=== PATIENT | female | born 1970 | race Hispanic/Latino ===

== ENCOUNTER 2017-09-20 02:34 | Emergency (ER) | payer SELFPAY | END 2017-09-20 03:57 | disposition home or self-care (01) | LOC: ERS 02:34 | DX: S06.0X0A Concussion without loss of consciousness, initial encounter (principal); I10 Essential (primary) hypertension; I25.10 Atherosclerotic heart disease of native coronary artery without angina pectoris; E11.9 Type 2 diabetes mellitus without complications; E78.5 Hyperlipidemia, unspecified; G43.909 Migraine, unspecified, not intractable, without status migrainosus; F32.9 Major depressive disorder, single episode, unspecified; Z79.4 Long term (current) use of insulin; Z79.899 Other long term (current) drug therapy; W22.8XXA Striking against or struck by other objects, initial encounter | CPT/HCPCS: 99284 ==

== ENCOUNTER 2018-05-05 04:13 | Inpatient (IN) | payer SELFPAY ==
[2018-05-05 05:02] LABS: Hemoglobin 12.7 g/dL (12.0-16.0); Mean Corpuscular HGB CONC 33.5 g/dL (32.0-36.0); Mean Corpuscular Hemoglobin 24.5 pg (27.0-31.0); Mean Corpuscular Volume 73.2 fL (78.0-98.0); Mean Platelet Volume 8.7 fL (7.4-10.4); Platelet Count 285 thou/uL (130-400); RBC Distribution Width 13.5 % (11.5-14.5); Red Blood Cell (RBC) Count 5.16 mill/uL (4.20-5.40); White Blood Cell (WBC) Count 9.7 thou/uL (4.8-10.8)
[2018-05-05 05:03] LABS: ALT (SGPT) 19 U/L (8-55); AST (SGOT) 23 U/L (5-34); Albumin 3.1 g/dL (3.5-5.0); Alkaline Phosphatase 117 U/L (40-150); Anion Gap 12 mmol/L (10-20); BUN (Urea Nitrogen) 11 mg/dL (7.0-18.7); Bilirubin, Total 0.2 mg/dL (0.2-1.2); CK (CPK) 171 U/L (29-168); Calc. Creatinine Clearance 0 mL/min (70-130); Calcium 9.5 mg/dL (7.8-10.44); Carbon Dioxide 24 mmol/L (22-29); Chloride 101 mmol/L (98-107); Estimated GFR-MDRD 74; Globulin 3.7 g/dL (2.4-3.5); Glucose 411 mg/dL (70-105); Potassium 3.9 mmol/L (3.5-5.1); Protein, Total 6.8 g/dL (6.0-8.3); Sodium 133 mmol/L (136-145)
[2018-05-05 05:11] LABS: CKMB 8.1 ng/mL (0-6.6); Troponin I 2.368 ng/mL (< 0.028)
[2018-05-05] MEDS ORDERED: Morphine 4 MG/ML VIAL ONE ×3 (05:22→09:03)
[2018-05-05] MEDS ORDERED: Ondansetron PF 4 MG/2 ML Vial ONE (05:23)
[2018-05-05] MEDS ORDERED: Nitroglycerin 0.4 MG TAB (25 Tab Bottle) ONE (05:23)
[2018-05-05] MEDS ORDERED: Nitroglycerin 2% Ointment 1 INCH/1 GM Packet ONE ×2 (05:30→07:42)
[2018-05-05 05:50] LABS: #Eosinphils 0.3 thou/uL (0.0-0.7); #Lymphocytes 2.8 thou/uL (1.20-3.40); #Monocytes 0.4 thou/uL (0.11-0.59); #Neutrophils 6.1 thou/uL (1.40-6.50); %Basophils 0.5 % (0.0-1.0); %Eosinophils 3.2 % (0.0-10.0); %Lymphocytes 29.3 % (21.0-51.0); %Monocytes 4.3 % (0.0-10.0); %Neutrophils 62.7 % (42.0-75.0); MDiff Complete? YES; Microcytosis SLIGHT = 6-15 cells (100X) (0-5/hpf); PLT Morphology Comment Appears Adequate
[2018-05-05] MEDS ORDERED: Enoxaparin Sodium 30 MG/0.3 ML SYRINGE ONE (06:33)
[2018-05-05] MEDS ORDERED: Morphine 2 MG/ML SYRINGE ONE (06:33)
[2018-05-05] MEDS ORDERED: Enoxaparin Sodium 100 MG/ML SYRINGE ONE (06:33)
[2018-05-05] MEDS ORDERED: Nitroglycerin 50 MG/250 ML BOT 250 ML ONE ×2 (06:45→11:47)
[2018-05-05] MEDS ORDERED: Labetalol HCl 100 MG/20 ML VIAL ONE (07:42)
[2018-05-05] MEDS ORDERED: Communication Order-Pharmacy FS SCH (08:30)
[2018-05-05 08:31] VITALS: BMI 40.5
[2018-05-05 08:40] LABS: Troponin I 5.666 ng/mL (< 0.028)
--- NOTE | 2018-05-05 08:50 | ULT ---
VENOUS DOPPLER ULTRASOUND OF THE RIGHT LOWER EXTREMITY: INDICATIONS: Right lower extremity edema. TECHNIQUE: Golden-scale, color Doppler, and vascular duplex with spectral analysis was performed of the deep venou s structures of both lower extremities. The common femoral vein, superficial femoral vein, popliteal vein, posterior tibial vein, proximal greater saphenous, and proximal profunda veins were assessed bi laterally. FINDINGS: There is normal compression, flow, and augmentation seen within the deep venous structures of the rig ht lower extremity. IMPRESSION: No evidence of deep venous thrombosis within the right lower extremity. POS: [facility]
[2018-05-05] MEDS: Metoprolol Tartrate 25 MG TAB PO SCH ×2 (09:07→19:18)
[2018-05-05] MEDS: Sodium Chloride 0.9% 1,000 ML IV SCH ×2 (09:10→18:21)
[2018-05-05 09:13] LABS: Cardiac Risk 6.4 (Less than 4.5)
--- NOTE | 2018-05-05 09:30 | RAD ---
CHEST ONE VIEW: INDICATIONS: History of chest pain. COMPARISON: 01/01/2018 FINDINGS/IMPRESSION: There is no evidence of pneumonia, pleural effusion, or pneumothorax. Heart size and pulmonary vascu lature are normal. No acute osseous abnormality is noted. Mild thoracic scoliosis is stable. POS: [facility]
[2018-05-05] MEDS ORDERED: Morphine 4 MG/ML VIAL IV PRN (10:03)
--- NOTE | 2018-05-05 10:09 | CT ---
PRELIMINARY REPORT/[facility]/EMERGENTY AFTER-HOURS PROCEDURE CT Angiography Chest With Intravenous Contrast EXAM DATE/TIME: 05/05/2018 5:31 AM CLINICAL HISTORY: 47 years old, female; Pain; Chest pain; Patient HX: PT reports chest pain that radiates to back start ed at midnight. Reports nausea. TECHNIQUE: Axial computed tomographic angiography images of the chest with intravenous contrast using CT angiogr aphy protocol. Coronal reformatted images were created and reviewed. MIP reconstructed images were created and reviewed. COMPARISON: No relevant prior studies available. FINDINGS: Pulmonary arteries: No definite filling defect to suggest the diagnosis of acute pulmonary embolus. Aorta: No evidence of thoracic aortic dissection or focal aneurysm. Lungs: No significant parenchymal lung opacity or mass. Pleural space: No pleural fluid. Heart: Mild to moderate cardiomegaly. Some coronary artery calcifications, mainly in the LAD. Mediastinum: No evidence for pneumomediastinum or pneumothorax. Upper abdomen: Images that include the upper abdomen appear essentially unremarkable. Lymph nodes: No significant hilar or mediastinal lymphadenopathy. Bones/joints: No significant acute finding. Soft tissues: No significant acute finding. IMPRESSION: 1. No evidence of acute pulmonary embolus. 2. No evidence of thoracic aortic dissection or focal aneurysm. 3. Essentially clear lungs, no pleural fluid. 4. Mild to moderate cardiomegaly. 5. Coronary artery calcifications. 6. Other findings discussed above. Thank you for allowing us to participate in the care of your patient. Dictated and Authenticated by: Gabriel Jim MD 05/05/2018 6:59 AM Central Time ([place] & [place]) FINAL REPORT: I agree with the preliminary report provided. No acute pulmonary embolus is grossly evident. POS: [facility]
[2018-05-05] MEDS ORDERED: Prevnar 13-Val Conj/PF 0.5 ML SYRINGE IM ONE ×2 (10:30→15:00)
[2018-05-05] MEDS ORDERED: Dextrose 50% Abboject 50 ML SYRINGE IVP PRN (10:31)
[2018-05-05] MEDS ORDERED: Dextrose 5% in Water 1,000 ML IV PRN (10:31)
[2018-05-05] MEDS ORDERED: PRE FILLED SC SCH (11:00)
[2018-05-05] MEDS ORDERED: INSULIN GLARGINE SC SCH (11:00)
[2018-05-05] MEDS: Insulin Regular 300 UNITS/3 ML VIAL SC PRN ×3 (11:22→22:31)
[2018-05-05] MEDS: Nitroglycerin 50 MG/250 ML BOT 250 ML IVPB SCH ×3 (11:47→20:24)
[2018-05-05] MEDS ORDERED: Amlodipine 5 MG TAB PO SCH (13:00)
[2018-05-05] MEDS ORDERED: Lisinopril 20 MG TAB PO SCH (13:00)
[2018-05-05] MEDS: Ondansetron PF 4 MG/2 ML Vial IVP PRN (16:12)
[2018-05-05] MEDS ORDERED: Iopamidol 370 76% 100 ML VIAL ONE (16:36)
[2018-05-05] MEDS ORDERED: Enoxaparin Sodium 120 MG/0.8 ML SYRINGE SC SCH (18:45)
[2018-05-05] MEDS ORDERED: Enoxaparin Sodium 40 MG/0.4 ML SYRINGE SC SCH (18:45)
[2018-05-05] MEDS: Morphine 4 MG/ML VIAL IV PRN (20:00)
[2018-05-05] MEDS ORDERED: Atorvastatin Calcium 20 MG TAB PO SCH (21:00)
[2018-05-06] MEDS: Acetaminophen 325 MG TAB PO PRN (00:55)
[2018-05-06] MEDS: Sodium Chloride 0.9% 1,000 ML IV SCH ×2 (04:40→12:48)
[2018-05-06] MEDS: Nitroglycerin 50 MG/250 ML BOT 250 ML IVPB SCH (04:41)
[2018-05-06] MEDS: Morphine 4 MG/ML VIAL IV PRN ×3 (07:30→18:00)
[2018-05-06] MEDS: Lisinopril 20 MG TAB PO SCH (07:31)
[2018-05-06] MEDS: Amlodipine 5 MG TAB PO SCH (07:31)
[2018-05-06] MEDS: Metoprolol Tartrate 25 MG TAB PO SCH (07:32)
[2018-05-06] MEDS: Ondansetron PF 4 MG/2 ML Vial IVP PRN ×2 (07:32→12:48)
--- NOTE | 2018-05-06 07:49 | CON ---
DATE OF CONSULTATION: HISTORY: Yuli Hayes is a 47-year-old female, who had a stent placed in her coronary artery in 2014 in [place], [place]. Apparently, she took Plavix only for 1 month and so I assumed that she had a bare-metal stent placed. She has no further information regarding that stent. She was admitted here in January 2018 with chest discomfort, underwent Cardiolite scan, which was normal. She has been very noncompliant with her medications. She does not even take any aspirin. Last night, approximately midnight, she started having some chest pressure associated with nausea. This continued and she came to the emergency room. In the emergency room, she was given Zofran, nitroglycerin sublingually, morphine 4 mg, aspirin 324 mg, nitropaste, another 2 mg of morphine, Lovenox 1 mg/kg. She was started on nitroglycerin drip as well as given another 4 mg of morphine. She states that her pain is almost gone. Her EKG has been normal and she does have abnormal cardiac enzymes. She has undergone CTA of the chest and has already received 1 dye load. The results of that as well as a vascular ultrasound are pending with nothing on the dictation system. PAST MEDICAL HISTORY: Hypertension, diabetes, hypercholesterolemia, migraine headaches, anxiety, and depression. MEDICATIONS: 1. Lisinopril. 2. Atorvastatin. 3. Levemir, no dosage. 4. She also states that medications included amlodipine, which she has not been able to fill. Exact list of her medications is unknown. ALLERGIES: NONE. PAST SURGICAL HISTORY: Removal of some type of tumor from the right side of her neck. SOCIAL HISTORY: She does not smoke or drink. FAMILY HISTORY: Both mother and father have myocardial infarction. REVIEW OF SYSTEMS: Twelve-point review of systems is otherwise unremarkable. PHYSICAL EXAMINATION: VITAL SIGNS: Blood pressure 120/80, pulse of 80. HEENT: PERRL. NECK: Supple. CHEST: Clear. CARDIAC: S1 and S2 are normal without any S3, S4, or murmurs. Carotid upstrokes normal without bruits. ABDOMEN: Normal bowel sounds without tenderness. The abdomen is obese. EXTREMITIES: Revealed no clubbing, cyanosis, or edema. NEUROLOGICAL: Grossly intact. SKIN: Warm and dry. LABORATORY DATA: EKG reveals normal sinus rhythm and is normal with no acute changes. Hemoglobin 12.7, hematocrit 37.8, white count 9700, and platelets 285, 000. D-dimer is 0.70. Sodium 133, potassium 3.9, chloride 101, carbon dioxide 24, BUN 11, creatinine 0.82, and glucose 411. CK 171, CK-MB 8.1. Troponin I 2.368. IMPRESSION: 1. Non-ST elevation myocardial infarction. Her pain has dramatically improved with intravenous nitroglycerin. She has received Lovenox and also has received 1 dye load today with CTA of the chest. 2. Noncompliance with medications, even not taking an aspirin a day. 3. Hypertension. 4. Hypercholesterolemia. 5. Diabetes. 6. Obesity. 7. History of migraines. 8. Anxiety and depression. PLAN: Situation was discussed with the patient. She has already received 1 dye load today and also has received Lovenox. Her pain is essentially resolved and EKG is normal. It is recommended that tomorrow she undergo cardiac catheterization. Risks of this were discussed including , myocardial infarction, dye reaction, vascular injury, CVA, transfusion, limb loss, renal loss, etc,. Also risks of intervention with stent placement were discussed including , myocardial infarction, emergent CABG, restenosis, stent thrombosis, vessel perforation, etc ,. With her history of extreme noncompliance with medications, only a bare-metal stent would be placed. Job ID: [id number] [facility]ITALKristin
--- NOTE | 2018-05-06 07:50 | HP ---
CHIEF COMPLAINT: Chest pain. HISTORY OF PRESENT ILLNESS: The patient is a 47-year-old female, who came home from work last night and started having some chest discomfort, which was radiating to her back. She had some nausea. She did not vomit. She was not clammy, but she felt short of breath. She took some Tylenol No.3, but this did not really help her. She laid down and started having more chest pain and more shortness of breath. She called her sister, who advised her to take some Gas-X, which she took and did not really help much, so her sister drove her to the emergency room at 3:30 this morning. She was still complaining about the chest pain and shortness of breath and she has a history of some chest pains before. In 2016, she had 2 stents placed in her coronary arteries. PAST MEDICAL HISTORY: Her past medical history is positive for, 1. Coronary artery disease; status post placement of 2 stents in 2016. 2. Diabetes mellitus type 2, on insulin. 3. Hyperlipidemia. 4. Hypertension. 5. Migraine headaches. MEDICATIONS: None. ALLERGIES: NONE. SOCIAL HISTORY: She denies any alcohol use, illicit drug use, or smoking. FAMILY HISTORY: Her mother is still alive. She has diabetes, pacemaker, history of TIAs, MIs, hyperlipidemia. Father at the age of 47. He had diabetes mellitus and gangrene of his leg. REVIEW OF SYSTEMS: CONSTITUTIONAL: Negative for fever and chills. EYES: Negative for eye pain and discharge. ENT: Negative for epistaxis and nasal congestion. CARDIOVASCULAR: Positive for chest pain. Negative for palpitation. RESPIRATORY: Positive for shortness of breath. Negative for cough. GI: Negative for vomiting. Positive for nausea. GENITOURINARY: Negative for hematuria and dysuria. SKIN: Negative for rash or erythema. NEUROLOGIC: Negative for any focal deficits. Positive for migraine headaches. HEMOLYMPHATIC: Negative for clotting abnormalities. PSYCHIATRIC: Negative for depression and anxiety. PHYSICAL EXAMINATION: VITAL SIGNS: Blood pressure is 200/96, temperature is 98.0, pulse is 84, respiratory rate is 17, O2 saturation is 98% on room air. HEENT: Head is atraumatic, normocephalic. Eyes, PERRLA. Sclerae nonicteric. Oral mucosa is moist. NECK: Supple. No lymphadenopathy. Thyroid is not palpable. LUNGS: Clear. HEART: S1 and S2 somewhat distant. No S3. No S4. ABDOMEN: Soft, obese, nontender. Bowel sounds are present. No organomegaly. EXTREMITIES: No clubbing or cyanosis. There is 1 to 2+ peripheral edema similar bilaterally. Pulse is palpable on both tibialis posterior and dorsalis pedis arteries similar bilaterally. They are slightly diminished on both sides similar. NEUROLOGIC: She is alert and oriented x4. There are no any sensory or motor deficits present. Cranial nerves are intact. LABORATORY DATA: Labs showed normal CBC. D-dimer is 0.7. Sodium of 133, glucose 411, . CK-MB 8.1. Troponin the first one was 2.3 and the second one is 5.6. BNP 28.8, globulin 3.7. EKG showed normal sinus rhythm without any ST-segment elevation. No any other abnormalities. EKG is within normal limits. Chest x-ray was done and this was personally reviewed by me and it showed not any acute event in the chest according to the chest x-ray. CT angiogram was done too and this was reviewed personally. We are awaiting for the final report from Radiology. I could not access this image in full extent. Also ultrasound vascular is done, but results are pending. IMPRESSION: 1. Acute coronary syndrome, non-ST segment elevation myocardial infarction. 2. Diabetes mellitus type 2. 3. Hyperlipidemia. 4. Hypertension. 5. Migraine headaches. PLAN: Admission to the Intensive Care Unit. CONDITION: Guarded. ACTIVITY: Bedrest. Normal saline IV at 100 mL per hour and nitroglycerin drip to be titrated, sublingual nitro p.r.n. as needed. Continue with serial CK-MB and troponin levels, and Cardiology consultation. The patient was already seen by Dr. Matute who is typewriters functional tester today. He wants to do cardiac catheterization on her either today or tomorrow. We will have Accu-Cheks every 6 hours. She will be n.p.o. We will cover her with sliding scale. She will continue on 1 mg/kg of Lovenox, which was started in the emergency room subcutaneously every 12 hours for anticoagulation. She was given beta-ruth, which is metoprolol 25 mg. She will have 2 doses every day and lipid profile will be obtained. She will stay n.p.o. for possible procedure today. Job ID: [id number]
[2018-05-06] MEDS ORDERED: Heparin 10,000 UNITS/1 ML VIAL ONE (08:45)
[2018-05-06] MEDS ORDERED: Lidocaine 1% (PF) 30 ML VIAL ONE (08:45)
[2018-05-06] MEDS ORDERED: Iopamidol 370 76% 100 ML VIAL ONE (11:06)
[2018-05-06] MEDS ORDERED: Iopamidol 370 76% 50 ML VIAL FS ONE (11:06)
[2018-05-06] MEDS ORDERED: Midazolam HCl 2 mg/2 ml Vial ONE (11:16)
[2018-05-06] MEDS ORDERED: Fentanyl 100 MCG/2 ML VIAL ONE (11:16)
[2018-05-06] MEDS ORDERED: Bivalirudin 250 MG VIAL ONE ×2 (11:38→11:40)
[2018-05-06] MEDS ORDERED: Nitroglycerin 100MG/250ML BOT 250 ML ONE (11:40)
[2018-05-06] MEDS ORDERED: Clopidogrel Bisulfate 300 MG TAB ONE (11:44)
[2018-05-06] MEDS ORDERED: Nitroglycerin 50 MG/250 ML BOT 250 ML IVPB SCH (12:25)
[2018-05-06] MEDS ORDERED: Metoprolol Tartrate 25 MG TAB PO SCH (12:30)
--- NOTE | 2018-05-06 13:40 | PDOC.PN ---
- Subjective Encounter Start Date: 05/06/18 Encounter Start Time: 13:38 Subjective: post PCI, no pain or sob - Objective MAR Reviewed: Yes Vital Signs & Weight: Vital Signs (12 hours) Temp Pulse BP Pulse Ox 05/06/18 08:00 100 05/06/18 07:31 90 137/60 05/06/18 07:00 99.6 F 05/06/18 05:23 98 05/06/18 04:00 99.1 F 05/06/18 02:00 100.5 F H Weight Admit Weight 243 lb 9.773 oz Weight 244 lb 14.937 oz Most Recent Monitor Data Heart Rate from ECG 82 NIBP 151/73 NIBP BP-Mean 99 Respiration from ECG 22 SpO2 99 I&O: 05/05/18 05/06/18 05/07/18 06:59 06:59 06:59 Intake Total 2834 Output Total 1050 300 Balance 1784 -300 Result Diagrams: 05/05/18 04:36 05/05/18 04:36 Additional Labs: Accuchecks 05/06/18 05/05/18 05/05/18 04:45 22:30 16:17 POC Glucose 167 H 239 H 152 H Phys Exam - Physical Examination Neck: no JVD Respiratory: clear to auscultation bilateral Cardiovascular: RRR, no significant murmur Gastrointestinal: soft, positive bowel sounds Musculoskeletal: no edema Dx/Plan (1) NSTEMI (non-ST elevated myocardial infarction) Code(s): I21.4 - NON-ST ELEVATION (NSTEMI) MYOCARDIAL INFARCTION Status: Acute (2) CAD (coronary artery disease) Code(s): I25.10 - ATHSCL HEART DISEASE OF [place] CORONARY ARTERY W/O ANG PCTRS Status: Acute Qualifiers: Coronary Disease-Associated Artery/Lesion type: [place] artery [place] vs. 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
[2018-05-06] MEDS ORDERED: Sodium Chloride 0.9% 1,000 ML IV SCH (14:41)
[2018-05-06 15:28] LABS: Bilirubin Negative (Negative); Blood, Urine Trace (Negative); Clarity CLEAR (Clear); Glucose, Urine (Dipstick) 100 mg/dL (Negative); Leukocyte Negative (Negative); Nitrite Negative (Negative); Protein, Urine (Dipstick) 300 mg/dL (Neg-Trace); Urobilinogen 0.2 mg/dL (0.2-1.0); pH, Urine 5.5 (5.0-9.0)
[2018-05-06 15:31] LABS: Bacteria/HPF None Seen HPF (None Seen); Hyaline Casts/LPF 4-6 HYALINE CAST LPF (0-3 Hyaline); Pathc Cast-AUWi Flag 1.45 (0-2.49); Squamous Epithelial 0-3 HPF (0-3); WBC/HPF 0-3 HPF (0-3)
[2018-05-06 15:33] LABS: Specific Gravity, Urine Greater than 1.060 (1.002-1.036)
[2018-05-06 15:49] LABS: Crystals/HPF 1+ AMORPH URATES HPF (Negative)
[2018-05-06] MEDS: Insulin Regular 300 UNITS/3 ML VIAL SC PRN (16:47)
--- NOTE | 2018-05-06 18:36 | CON ---
DATE OF CONSULTATION: 05/06/2018 SERVICE: Pulmonary Medicine REASON FOR CONSULT: ICU patient. HISTORY OF PRESENT ILLNESS: The patient is a 47-year-old white female with past medical history significant for coronary artery disease and diabetes. She was in her usual state of health when she started having onset of chest discomfort going into her back with some nausea. Otherwise, she was in her usual state of health. This came on abruptly. She has had similar events like this previously and was associated with coronary artery disease. That discomfort resolved after stents were placed. Overnight, she did fairly well. Discomfort resolved. 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 She currently denies any nausea, vomiting, diarrhea, chest pain, shortness of breath, cough, or sputum production. She has not had any infectious prodromes. PAST MEDICAL HISTORY: 1. Coronary artery disease. 2. Type 2 diabetes mellitus. 3. Hypertension. 4. Dyslipidemia. 5. Migraine. PAST SURGICAL HISTORY: Percutaneous coronary intervention. SOCIAL HISTORY: Negative for alcohol, tobacco, or illicit drug use. She has no exposure to chemicals, dust, asbestos, or tuberculosis. FAMILY HISTORY: Noncontributory. ALLERGIES: NO KNOWN DRUG ALLERGIES. MEDICATIONS: List of her inpatient medications was reviewed. No specific updates were made at this time. REVIEW OF SYSTEMS: General, head, ears, eyes, nose, throat, cardiovascular, respiratory, genitourinary, musculoskeletal, neurologic, and skin are negative except as mentioned in the HPI. PHYSICAL EXAMINATION: VITAL SIGNS: T-max 101.1, pulse 82, blood pressure 151/73, respirations 22, and saturation 99% on room air. GENERAL: The patient is awake and alert. No apparent distress. LUNGS: Decent air entry. Dependent crackles are noted. There is no prolonged expiratory phase or wheezing appreciated. HEART: Normal rate and regular. ABDOMEN: Soft, nontender, and nondistended. Bowel sounds are positive. MUSCULOSKELETAL: No cyanosis or clubbing. There is no pitting in the bilateral lower extremities. NEUROLOGIC: Grossly nonfocal. LABORATORY DATA: WBC 9.7, hemoglobin 12.7, platelets 285,000. D-dimer 0.7. Glucose ranges from 167 to 308. Troponin 10.5 and uptrending. Triglycerides 370. Liver function studies, CBC, and basic metabolic profile are otherwise unremarkable. BNP is noted to be low at 28. IMAGING DATA: 1. CTA of the chest demonstrates no acute cardiopulmonary abnormality. 2. Ultrasound of the bilateral lower extremities demonstrates no evidence of DVT. ASSESSMENT: 1. Non ST-elevation myocardial infarction. 2. Type 2 diabetes mellitus. 3. History of medical noncompliance. DISCUSSION AND PLAN: The patient has already gone for cardiac catheterization. I am waiting to see the results of that study. Pulmonary Critical Care will continue to follow along while the patient remains in this location. She did have a fever last night. We will look for additional signs of sepsis and if present, panculture and empiric antibiotics will be considered. I will get a simple urinalysis at this time. If she has another fever, blood cultures will be performed. 70 minutes have been devoted to this patient in various activities. I personally reviewed all imaging studies and laboratory data noted within this document. For fifty percent of this time, I was interacting with the patient at the bedside or coordinating care with the care team. For the remainder of the time I was immediately available to the patient in the hospital unit. Job ID: [id number] MTDD
[2018-05-06] MEDS: Atorvastatin Calcium 40 MG TAB PO SCH (22:07)
[2018-05-06] MEDS: Metoprolol Tartrate 50 MG TAB PO SCH (22:08)
[2018-05-06] MEDS: Benzonatate 100 MG CAP PO PRN (23:50)
[2018-05-07] MEDS: Acetaminophen 325 MG TAB PO PRN ×3 (04:38→21:40)
[2018-05-07] MEDS: Insulin Regular 300 UNITS/3 ML VIAL SC PRN ×4 (04:49→21:40)
[2018-05-07] MEDS: Morphine 2 MG/ML SYRINGE SLOW IVP PRN (05:34)
[2018-05-07 05:40] LABS: #Eosinphils 0.1 thou/uL (0.0-0.7); #Lymphocytes 1.6 thou/uL (1.20-3.40); #Monocytes 0.5 thou/uL (0.11-0.59); #Neutrophils 7.5 thou/uL (1.40-6.50); %Basophils 0.2 % (0.0-1.0); %Eosinophils 0.7 % (0.0-10.0); %Lymphocytes 16.4 % (21.0-51.0); %Monocytes 5.4 % (0.0-10.0); %Neutrophils 77.2 % (42.0-75.0); Hemoglobin 10.4 g/dL (12.0-16.0); Mean Corpuscular HGB CONC 31.2 g/dL (32.0-36.0); Mean Corpuscular Hemoglobin 23.6 pg (27.0-31.0); Mean Corpuscular Volume 75.6 fL (78.0-98.0); Mean Platelet Volume 8.7 fL (7.4-10.4); Platelet Count 249 thou/uL (130-400); RBC Distribution Width 13.4 % (11.5-14.5); Red Blood Cell (RBC) Count 4.43 mill/uL (4.20-5.40); White Blood Cell (WBC) Count 9.7 thou/uL (4.8-10.8)
[2018-05-07 05:51] LABS: ALT (SGPT) 17 U/L (8-55); AST (SGOT) 27 U/L (5-34); Albumin 2.5 g/dL (3.5-5.0); Alkaline Phosphatase 117 U/L (40-150); Anion Gap 9 mmol/L (10-20); BUN (Urea Nitrogen) 11 mg/dL (7.0-18.7); Bilirubin, Total 0.3 mg/dL (0.2-1.2); Calc. Creatinine Clearance 0 mL/min (70-130); Calcium 8.2 mg/dL (7.8-10.44); Carbon Dioxide 21 mmol/L (22-29); Chloride 103 mmol/L (98-107); Estimated GFR-MDRD 72; Globulin 3.4 g/dL (2.4-3.5); Glucose 300 mg/dL (70-105); Protein, Total 5.9 g/dL (6.0-8.3); Sodium 129 mmol/L (136-145)
[2018-05-07] MEDS ORDERED: Piperacillin/Tazobactam 3.375 GM in Sodium Chloride 0.9% 100 ML IVPB SCH (06:00)
[2018-05-07] MEDS: Vancomycin HCl 1.75 GM in Sodium Chloride 0.9% 500 ML IVPB SCH ×2 (06:11→17:14)
[2018-05-07] MEDS: Metoprolol Tartrate 50 MG TAB PO SCH (09:28)
[2018-05-07] MEDS: Lisinopril 20 MG TAB PO SCH (09:28)
[2018-05-07] MEDS: Amlodipine 5 MG TAB PO SCH (09:28)
--- NOTE | 2018-05-07 09:28 | PDOC.PN ---
- Subjective Encounter Start Date: 05/07/18 Encounter Start Time: 09:27 Subjective: vague L post chest discomfort - Objective MAR Reviewed: Yes Vital Signs & Weight: Vital Signs (12 hours) Temp 05/07/18 04:00 102.2 F H 05/07/18 00:00 99.2 F Weight Admit Weight 243 lb 9.773 oz Weight 3.997 oz Most Recent Monitor Data Heart Rate from ECG 91 NIBP 162/78 NIBP BP-Mean 106 Respiration from ECG 20 SpO2 99 I&O: 05/06/18 05/07/18 05/08/18 06:59 06:59 06:59 Intake Total 2834 2161 Output Total 1050 1535 Balance 1784 626 Result Diagrams: 05/07/18 05:26 05/07/18 05:26 Additional Labs: Accuchecks 05/07/18 05/06/18 05/06/18 04:48 22:11 16:24 POC Glucose 302 H 148 H 207 H Phys Exam - Physical Examination Neck: no JVD Respiratory: clear to auscultation bilateral Cardiovascular: RRR, no significant murmur Gastrointestinal: soft, positive bowel sounds Musculoskeletal: no edema Dx/Plan (1) NSTEMI (non-ST elevated myocardial infarction) Code(s): I21.4 - NON-ST ELEVATION (NSTEMI) MYOCARDIAL INFARCTION Status: Acute (2) CAD (coronary artery disease) Code(s): I25.10 - ATHSCL HEART DISEASE OF [place] CORONARY ARTERY W/O ANG PCTRS Status: Acute Qualifiers: Coronary Disease-Associated Artery/Lesion type: [place] artery [place] vs. 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
[2018-05-07] MEDS: Clopidogrel Bisulfate 75 MG TAB PO SCH (09:29)
[2018-05-07] MEDS: Piperacillin/Tazobactam 3.375 GM in Sodium Chloride 0.9% 100 ML IVPB SCH ×3 (09:37→21:41)
--- NOTE | 2018-05-07 10:29 | PRG ---
DATE OF SERVICE: 05/07/2018 SERVICE: Pulmonary Medicine. INTERVAL HISTORY: Once again, the patient had a fairly significant fever overnight. As such, blood cultures were obtained and she was initiated on IV antibiotics. She denies any current fevers, chills, nausea, or vomiting. She is not having any vaginal discharge, dysuria, frequency, or abdominal discomfort. She has no rashes anywhere or hot red swollen joints. Ultimately, it is not clear where her fever profile is coming from. She is having a little bit of a cough. She tells me that the cough predated her chest discomfort by about 24 hours. OBJECTIVE: VITAL SIGNS: Previously afebrile, but at 4 o'clock in the morning, she had a fever of 102.2. Pulse 90, blood pressure 162/78, respirations 20, saturations 99% on 2 L nasal cannula. GENERAL: The patient is awake and alert, in no apparent distress. LUNGS: Really decent air entry. Some scattered rhonchi are present, but clear with cough. No prolonged expiratory phase or wheezing is appreciated. HEART: Normal rate, regular. ABDOMEN: Soft, nontender, and nondistended. Bowel sounds are positive. MUSCULOSKELETAL: No cyanosis or clubbing. There is trace pitting in the bilateral lower extremities. I do not see significant asymmetry between the right and left. : Smith catheter in place. NEUROLOGIC: Grossly nonfocal. LABORATORY DATA: WBC 9.7, hemoglobin 10.4, platelets 249,000. Creatinine 0.84, bicarbonate 21, and downtrending gently, anion gap is normal. Sodium is downtrending to 129. Respiratory virus panel is negative. ASSESSMENT: 1. Acute hypoxic respiratory failure, improving. 2. Bef-DA-jtuwlieor myocardial infarction. 3. Type 2 diabetes mellitus. 4. Severe sepsis. 5. History of medical noncompliance. DISCUSSION AND PLAN: I will continue the empiric antibiotics while we await some culture results. Pulmonary Critical Care will continue to follow along for the time being. I will have pharmacy dose, both the vancomycin, and Zosyn. From my perspective, she remains stable for transition to the medical unit. Job ID: [id number] [facility]TDD
[2018-05-07] MEDS: Benzonatate 100 MG CAP PO PRN (21:40)
[2018-05-07] MEDS: Colchicine 0.6 MG TAB PO SCH (21:40)
[2018-05-07] MEDS: Metoprolol Tartrate 100 MG TAB PO SCH (21:40)
[2018-05-07] MEDS: Atorvastatin Calcium 40 MG TAB PO SCH (21:40)
[2018-05-08] MEDS: Piperacillin/Tazobactam 3.375 GM in Sodium Chloride 0.9% 100 ML IVPB SCH ×4 (02:32→20:07)
[2018-05-08] MEDS: Vancomycin HCl 1.75 GM in Sodium Chloride 0.9% 500 ML IVPB SCH ×2 (05:33→17:48)
[2018-05-08] MEDS: Acetaminophen 325 MG TAB PO PRN ×2 (06:14→18:25)
[2018-05-08] MEDS: Metoprolol Tartrate 100 MG TAB PO SCH ×2 (07:45→20:07)
[2018-05-08] MEDS: Insulin Regular 300 UNITS/3 ML VIAL SC PRN ×4 (07:45→23:27)
[2018-05-08] MEDS: Colchicine 0.6 MG TAB PO SCH ×2 (07:45→20:07)
[2018-05-08] MEDS: Clopidogrel Bisulfate 75 MG TAB PO SCH (07:46)
[2018-05-08] MEDS: Amlodipine 5 MG TAB PO SCH (07:46)
--- NOTE | 2018-05-08 08:22 | PDOC.PN ---
- Subjective Encounter Start Date: 05/08/18 Encounter Start Time: 08:21 Subjective: no pain or sob - Objective MAR Reviewed: Yes Vital Signs & Weight: Vital Signs (12 hours) Temp Pulse Resp BP Pulse Ox 05/08/18 07:57 98.6 F 88 18 174/76 H 95 05/08/18 04:00 100.4 F H 87 20 163/78 H 91 L 05/07/18 23:20 100.9 F H 97 15 138/63 92 L Weight Admit Weight 243 lb 9.773 oz Weight 263 lb 3.2 oz Most Recent Monitor Data Heart Rate from ECG 91 NIBP 162/78 NIBP BP-Mean 106 Respiration from ECG 20 SpO2 99 I&O: 05/07/18 05/08/18 05/09/18 06:59 06:59 06:59 Intake Total 2161 1778 Output Total 1535 200 Balance 626 1578 Result Diagrams: 05/07/18 05:26 05/07/18 05:26 Additional Labs: Accuchecks 05/08/18 05/07/18 05/07/18 05:33 21:26 16:08 POC Glucose 198 H 196 H 257 H 05/07/18 10:21 POC Glucose 307 H Phys Exam - Physical Examination Neck: no JVD Respiratory: clear to auscultation bilateral Cardiovascular: RRR, no significant murmur Gastrointestinal: soft, positive bowel sounds Musculoskeletal: edema present Dx/Plan (1) NSTEMI (non-ST elevated myocardial infarction) Code(s): I21.4 - NON-ST ELEVATION (NSTEMI) MYOCARDIAL INFARCTION Status: Acute (2) CAD (coronary artery disease) Code(s): I25.10 - ATHSCL HEART DISEASE OF [place] CORONARY ARTERY W/O ANG PCTRS Status: Acute Qualifiers: Coronary Disease-Associated Artery/Lesion type: [place] artery [place] vs. transplanted heart: [place] heart (3) DM type 2 (diabetes mellitus, type 2) Status: Chronic Qualifiers: Diabetes mellitus nursing home insulin use: with rat exterminator use Diabetes mellitus complication status: without complication Qualified Code(s): E11.9 - Type 2 diabetes mellitus without complications; Z79.4 - alf (current) use of insulin (4) HTN (hypertension) Code(s): I10 - ESSENTIAL (PRIMARY) HYPERTENSION Status: Chronic Qualifiers: Hypertension type: essential hypertension Qualified Code(s): I10 - Essential (primary) hypertension (5) Dyslipidemia Code(s): E78.5 - HYPERLIPIDEMIA, UNSPECIFIED Status: Chronic - Plan cont current tx -: discuss with Cardiology -: DC today? * .
[2018-05-08] MEDS: Lisinopril 20 MG TAB PO SCH (08:38)
--- NOTE | 2018-05-08 10:52 | PRG ---
DATE OF SERVICE: 05/08/2018 SERVICE: Pulmonary Medicine INTERVAL HISTORY: The patient is breathing comfortably. She denies any current fevers or chills. When she gets up and goes to the bathroom, she has a little bit of lightheadedness. She also notes a little bit of weakness. Her cough is starting to bring up some white phlegm. Otherwise, there has been no interval change to her condition. She denies any chest discomfort currently. PHYSICAL EXAMINATION: VITAL SIGNS: T-max 101.9, pulse 88, blood pressure 174/76, respirations 18, saturation 95% on 2 L nasal cannula. GENERAL: The patient is awake and alert, in no apparent distress. LUNGS: Excellent air entry. Crackles are present. There is no prolonged expiratory phase or wheezing appreciated. HEART: Normal rate, regular. ABDOMEN: Soft, nontender, nondistended. Bowel sounds are positive. MUSCULOSKELETAL: No cyanosis or clubbing. There is no pitting in the bilateral lower extremities. NEUROLOGIC: Grossly nonfocal. LABORATORY DATA: Urine culture is negative at 24 hours. Respiratory virus panel was unremarkable. ASSESSMENT: 1. Acute hypoxic respiratory failure, resolved. 2. Whb-OU-rdgyojrvj myocardial infarction. 3. Severe sepsis. 4. Type 2 diabetes mellitus. 5. History of medical noncompliance. DISCUSSION AND PLAN: We still really do not know our source. I have her on empiric antibiotics currently. Blood cultures are pending. My suspicion is that the sepsis profile is a thing that drove the [id number] [place]. Because she is having diarrhea, we will explore that, but otherwise, she is not having any focalizing symptoms telling us where to otherwise look. If these studies are negative, I think it will be reasonable to discharge her home with a p.o. course of antibiotics. Job ID: [id number]
[2018-05-08] MEDS ORDERED: Amlodipine 5 MG TAB PO SCH (12:30)
[2018-05-08 17:28] LABS: Vancomycin, Trough 16.9 ug/mL
[2018-05-08] MEDS: Nitroglycerin 0.4 MG TAB (25 Tab Bottle) SL PRN ×2 (18:06→21:11)
[2018-05-08] MEDS ORDERED: Labetalol HCl 100 MG/20 ML VIAL SLOW IVP PRN (18:17)
--- NOTE | 2018-05-08 18:23 | PDOC.EVN ---
Event Note - Event Note Event Note: chest leyla back to frnt. improved with SL NTG, EKG- doming of ST segment in 1- avf. troponin pending. discussed wiyh cardiology.
[2018-05-08] MEDS: Mag-Al 1200 mg/1200 mg/30 ML UDCUP PO PRN (18:25)
[2018-05-08 19:34] LABS: CKMB 1.1 ng/mL (0-6.6)
[2018-05-08] MEDS ORDERED: cloNIDine 0.1 MG TAB PO PRN (19:35)
[2018-05-08] MEDS: Atorvastatin Calcium 40 MG TAB PO SCH (20:06)
[2018-05-08] MEDS: Morphine 2 MG/ML SYRINGE SLOW IVP PRN (20:17)
--- NOTE | 2018-05-08 21:48 | EKG ---
Test Reason : Blood Pressure : / mmHG Vent. Rate : 085 BPM Atrial Rate : 085 BPM P-R Int : 210 ms QRS Dur : 096 ms QT Int : 366 ms P-R-T Axes : 011 068 065 degrees QTc Int : 435 ms Sinus rhythm with 1st degree A-V block Otherwise normal ECG When compared with ECG of 05-MAY-2018 04:22, (Unconfirmed) No significant change was found Confirmed by Grisel MACKEY ([id number]) on 05/08/2018 9:48:33 PM Referred By: CHIDI Confirmed By:Grisel MACKEY
--- NOTE | 2018-05-08 21:49 | EKG ---
Test Reason : STAT Blood Pressure : / mmHG Vent. Rate : 101 BPM Atrial Rate : 101 BPM P-R Int : 208 ms QRS Dur : 094 ms QT Int : 342 ms P-R-T Axes : 024 067 069 degrees QTc Int : 443 ms Sinus tachycardia Otherwise normal ECG When compared with ECG of 06-MAY-2018 15:12, (Unconfirmed) No significant change was found Confirmed by Grisel MACKEY ([id number]) on 05/08/2018 9:49:24 PM Referred By: CHIDI Confirmed By:Grisel MACKEY
--- NOTE | 2018-05-08 21:52 | EKG ---
Test Reason : Blood Pressure : / mmHG Vent. Rate : 085 BPM Atrial Rate : 085 BPM P-R Int : 202 ms QRS Dur : 098 ms QT Int : 370 ms P-R-T Axes : 010 099 053 degrees QTc Int : 440 ms Normal sinus rhythm Rightward axis Borderline ECG When compared with ECG of 06-MAY-2018 18:04, (Unconfirmed) No significant change was found Confirmed by Grisel MACKEY ([id number]) on 05/08/2018 9:52:21 PM Referred By: CHIDI Confirmed By:Grisel MACKEY
[2018-05-09 00:47] LABS: #Basophils 0.1 thou/uL (0.0-0.2); #Eosinphils 0.3 thou/uL (0.0-0.7); #Lymphocytes 1.8 thou/uL (1.20-3.40); #Monocytes 0.5 thou/uL (0.11-0.59); #Neutrophils 5.3 thou/uL (1.40-6.50); %Basophils 0.7 % (0.0-1.0); %Eosinophils 3.5 % (0.0-10.0); %Lymphocytes 22.5 % (21.0-51.0); %Neutrophils 67.2 % (42.0-75.0); Mean Corpuscular HGB CONC 31.1 g/dL (32.0-36.0); Mean Corpuscular Hemoglobin 23.3 pg (27.0-31.0); Mean Platelet Volume 8.6 fL (7.4-10.4); Platelet Count 262 thou/uL (130-400); RBC Distribution Width 13.1 % (11.5-14.5); White Blood Cell (WBC) Count 7.8 thou/uL (4.8-10.8)
[2018-05-09 01:18] LABS: Troponin I 4.704 ng/mL (< 0.028)
[2018-05-09] MEDS: Piperacillin/Tazobactam 3.375 GM in Sodium Chloride 0.9% 100 ML IVPB SCH ×4 (01:45→21:43)
[2018-05-09] MEDS: Nitroglycerin 0.4 MG TAB (25 Tab Bottle) SL PRN ×2 (01:45→02:04)
[2018-05-09 01:52] LABS: Anion Gap 12 mmol/L (10-20); BUN (Urea Nitrogen) 10 mg/dL (7.0-18.7); Calc. Creatinine Clearance 149 mL/min (70-130); Calcium 8.5 mg/dL (7.8-10.44); Carbon Dioxide 21 mmol/L (22-29); Chloride 105 mmol/L (98-107); Estimated GFR-MDRD 69; Glucose 260 mg/dL (70-105); Potassium 3.6 mmol/L (3.5-5.1); Sodium 134 mmol/L (136-145)
[2018-05-09] MEDS: Vancomycin HCl 1.75 GM in Sodium Chloride 0.9% 500 ML IVPB SCH ×2 (05:29→19:08)
[2018-05-09] MEDS: Insulin Regular 300 UNITS/3 ML VIAL SC PRN ×4 (05:30→21:52)
--- NOTE | 2018-05-09 07:09 | PDOC.PN ---
- Subjective Encounter Start Date: 05/09/18 Encounter Start Time: 07:08 Subjective: chest discomfort, relieved by NTG - Objective MAR Reviewed: Yes Vital Signs & Weight: Vital Signs (12 hours) Temp Pulse Resp BP BP Pulse Ox 05/09/18 04:00 99.5 F 81 15 177/81 H 92 L 05/09/18 02:06 80 164/82 H 05/09/18 02:01 81 159/82 H 05/09/18 01:57 84 189/92 H 05/09/18 01:48 82 176/79 H 05/08/18 23:27 100 F H 75 19 125/72 94 L 05/08/18 20:09 93 L 05/08/18 20:00 98.9 F 89 16 145/65 H 93 L Weight Admit Weight 243 lb 9.773 oz Weight 275 lb Most Recent Monitor Data Heart Rate from ECG 91 NIBP 162/78 NIBP BP-Mean 106 Respiration from ECG 20 SpO2 99 I&O: 05/08/18 05/09/18 05/10/18 06:59 06:59 06:59 Intake Total 1778 3651 Output Total 200 880 Balance 1578 2771 Result Diagrams: 05/09/18 00:33 05/09/18 00:33 Additional Labs: Accuchecks 05/09/18 05/08/18 05/08/18 05:28 23:18 17:02 POC Glucose 255 H 289 H 335 H 05/08/18 12:22 POC Glucose 223 H Phys Exam - Physical Examination Neck: no JVD Respiratory: clear to auscultation bilateral Cardiovascular: RRR, no significant murmur Gastrointestinal: soft, positive bowel sounds Musculoskeletal: no edema Dx/Plan (1) NSTEMI (non-ST elevated myocardial infarction) Code(s): I21.4 - NON-ST ELEVATION (NSTEMI) MYOCARDIAL INFARCTION Status: Acute (2) CAD (coronary artery disease) Code(s): I25.10 - ATHSCL HEART DISEASE OF [place] CORONARY ARTERY W/O ANG PCTRS Status: Acute Qualifiers: Coronary Disease-Associated Artery/Lesion type: [place] artery [place] vs. transplanted heart: [place] heart (3) DM type 2 (diabetes mellitus, type 2) Status: Chronic Qualifiers: Diabetes mellitus senior care insulin use: with senior care use Diabetes mellitus complication status: without complication Qualified Code(s): E11.9 - Type 2 diabetes mellitus without complications; Z79.4 - senior living (current) use of insulin (4) HTN (hypertension) Code(s): I10 - ESSENTIAL (PRIMARY) HYPERTENSION Status: Chronic Qualifiers: Hypertension type: essential hypertension Qualified Code(s): I10 - Essential (primary) hypertension (5) Dyslipidemia Code(s): E78.5 - HYPERLIPIDEMIA, UNSPECIFIED Status: Chronic - Plan cont accu/ss/ institute leve[facility] -: cont asa, ntg, etc -: discuss with cardiology * .
[2018-05-09] MEDS: Lisinopril 20 MG TAB PO SCH (08:38)
[2018-05-09] MEDS: Amlodipine 10 MG TAB PO SCH (08:39)
[2018-05-09] MEDS: Clopidogrel Bisulfate 75 MG TAB PO SCH (08:40)
[2018-05-09] MEDS: Colchicine 0.6 MG TAB PO SCH ×2 (08:40→21:43)
[2018-05-09] MEDS: Metoprolol Tartrate 100 MG TAB PO SCH ×2 (08:40→21:43)
[2018-05-09] MEDS ORDERED: LEVEMIR 60 UNIT SQ SCH (09:00)
[2018-05-09] MEDS: Insulin Glargine 60 UNITS in Pre-Filled Syringe 1 EACH SC SCH (09:41)
[2018-05-09] MEDS: Atorvastatin Calcium 40 MG TAB PO SCH (21:43)
[2018-05-09] MEDS: Ondansetron PF 4 MG/2 ML Vial IVP PRN (23:36)
[2018-05-10] MEDS: Piperacillin/Tazobactam 3.375 GM in Sodium Chloride 0.9% 100 ML IVPB SCH ×4 (02:25→20:41)
[2018-05-10] MEDS ORDERED: Promethazine HCl 12.5 MG in Sodium Chloride 0.9% 50 ML IVPB SCH (03:00)
[2018-05-10] MEDS: Vancomycin HCl 1.75 GM in Sodium Chloride 0.9% 500 ML IVPB SCH (05:08)
[2018-05-10 05:59] LABS: #Eosinphils 0.3 thou/uL (0.0-0.7); #Lymphocytes 1.1 thou/uL (1.20-3.40); #Monocytes 0.6 thou/uL (0.11-0.59); #Neutrophils 5.7 thou/uL (1.40-6.50); %Basophils 0.4 % (0.0-1.0); %Eosinophils 3.7 % (0.0-10.0); %Lymphocytes 14.6 % (21.0-51.0); %Monocytes 7.5 % (0.0-10.0); %Neutrophils 73.7 % (42.0-75.0); Hemoglobin 10.4 g/dL (12.0-16.0); Mean Corpuscular HGB CONC 32.6 g/dL (32.0-36.0); Mean Corpuscular Hemoglobin 24.4 pg (27.0-31.0); Mean Corpuscular Volume 74.9 fL (78.0-98.0); Mean Platelet Volume 8.7 fL (7.4-10.4); Platelet Count 296 thou/uL (130-400); RBC Distribution Width 13.3 % (11.5-14.5); Red Blood Cell (RBC) Count 4.29 mill/uL (4.20-5.40); White Blood Cell (WBC) Count 7.8 thou/uL (4.8-10.8)
[2018-05-10 06:17] LABS: Anion Gap 11 mmol/L (10-20); BUN (Urea Nitrogen) 10 mg/dL (7.0-18.7); Calc. Creatinine Clearance 84 mL/min (70-130); Calcium 8.7 mg/dL (7.8-10.44); Carbon Dioxide 20 mmol/L (22-29); Chloride 107 mmol/L (98-107); Estimated GFR-MDRD 35; Glucose 163 mg/dL (70-105); Potassium 3.6 mmol/L (3.5-5.1); Sodium 134 mmol/L (136-145)
[2018-05-10 06:18] LABS: Critical Call Chem Troponin I RESULT DECREASING; Troponin I 3.574 ng/mL (< 0.028)
[2018-05-10 07:11] LABS: CKMB 0.8 ng/mL (0-6.6)
[2018-05-10] MEDS: Insulin Glargine 60 UNITS in Pre-Filled Syringe 1 EACH SC SCH (08:25)
[2018-05-10] MEDS: Amlodipine 10 MG TAB PO SCH (08:26)
[2018-05-10] MEDS: Metoprolol Tartrate 100 MG TAB PO SCH ×2 (08:26→20:41)
[2018-05-10] MEDS: Clopidogrel Bisulfate 75 MG TAB PO SCH (08:26)
[2018-05-10] MEDS: Colchicine 0.6 MG TAB PO SCH ×2 (08:26→20:41)
[2018-05-10] MEDS: Lisinopril 20 MG TAB PO SCH (08:26)
[2018-05-10] MEDS ORDERED: Furosemide 40 MG/4 ML VIAL SLOW IVP SCH (09:15)
--- NOTE | 2018-05-10 10:26 | PRG ---
DATE OF SERVICE: 05/09/2018 SERVICE: Pulmonary Medicine INTERVAL HISTORY: Overnight, the patient had some episode where she woke up with some shortness of breath and heaviness on her chest. She said it felt like somebody was sitting on her. It took a couple of minutes to resolve. Outside of that, there were no significant events. She is having a little bit more dyspnea today. She denies any current fevers, chills, nausea, or vomiting. She is tolerating p.o. for the most part. PHYSICAL EXAMINATION: VITAL SIGNS: Afebrile with a T-max of 100.0, pulse 83, blood pressure 167/80, respirations 16, and saturation 92% on room air. GENERAL: The patient is awake, alert, and in no apparent distress. LUNGS: Dependent crackles are present. There is no prolonged expiratory phase or wheezing appreciated. HEART: Normal rate and regular. ABDOMEN: Soft. Nontender and nondistended. Bowel sounds are positive. MUSCULOSKELETAL: No cyanosis or clubbing. There is 1 to 2+ pitting in the bilateral lower extremities. NEUROLOGIC: Grossly nonfocal. LABORATORY DATA: WBC 7.8, hemoglobin 10.0, and platelets 262,000. Troponin is downtrending. Basic metabolic profile is essentially unremarkable. CK-MB is low. Respiratory virus panel is unremarkable. Urine culture is negative. Blood culture is growing coag-negative Staph in 1/2. ASSESSMENT: 1. Acute hypoxic respiratory failure, resolved. 2. Yyz-FW-qkfwkunlb myocardial infarction. 3. Severe sepsis, source unknown. 4. Type 2 diabetes mellitus. 5. History of medical noncompliance. DISCUSSION AND PLAN: The patient is getting a touch volume overloaded. As such, we will introduce a little bit of Lasix today and tomorrow. Pulmonary/Critical Care will continue to follow along. At this point, we really do not have a clear source of infection. Of note, her diarrhea is starting to firm up a little bit, making this an unlikely source. Job ID: [id number]
--- NOTE | 2018-05-10 14:05 | PDOC.PN ---
- Subjective Encounter Start Date: 05/10/18 Encounter Start Time: 08:30 Doing ok in general. Had vomiting x 3 overnight. Has had some diarrhea and LLQ discomfort. - Objective Vital Signs & Weight: Vital Signs (12 hours) Temp Pulse Resp BP BP BP BP 05/10/18 11:09 98.4 F 71 18 149/70 H 05/10/18 08:26 74 05/10/18 08:19 98.2 F 74 18 153/74 H 05/10/18 05:08 181/78 H 05/10/18 04:00 98.8 F 74 19 181/83 H Pulse Ox 05/10/18 11:09 100 05/10/18 08:26 05/10/18 08:19 95 05/10/18 05:08 05/10/18 04:00 92 L Weight Admit Weight 243 lb 9.773 oz Weight 264 lb 9.6 oz Most Recent Monitor Data Heart Rate from ECG 91 NIBP 162/78 NIBP BP-Mean 106 Respiration from ECG 20 SpO2 99 I&O: 05/09/18 05/10/18 05/11/18 06:59 06:59 06:59 Intake Total 3651 1149 Output Total 880 1750 Balance 2771 -601 Result Diagrams: 05/10/18 05:17 05/10/18 05:17 Additional Labs: Accuchecks 05/10/18 05/09/18 05/09/18 04:15 21:53 17:04 POC Glucose 168 H 203 H 191 H Phys Exam - Physical Examination Constitutional: NAD Respiratory: no wheezing, no rales, no rhonchi, clear to auscultation bilateral Cardiovascular: RRR, no significant murmur Gastrointestinal: soft, no distention Mild LLQ TTP with no guarding. 1+ pitting edema of the feet and ankles. Psychiatric: normal affect, A&O x 3 Dx/Plan (1) Nausea & vomiting Code(s): R11.2 - NAUSEA WITH VOMITING, UNSPECIFIED Status: Acute (2) CAD (coronary artery disease) Code(s): I25.10 - ATHSCL HEART DISEASE OF [place] CORONARY ARTERY W/O ANG PCTRS Status: Acute Qualifiers: Coronary Disease-Associated Artery/Lesion type: [place] artery [place] vs. transplanted heart: [place] heart (3) NSTEMI (non-ST elevated myocardial infarction) Code(s): I21.4 - NON-ST ELEVATION (NSTEMI) MYOCARDIAL INFARCTION Status: Acute (4) DM type 2 (diabetes mellitus, type 2) Status: Chronic Qualifiers: Diabetes mellitus prison insulin use: with [place] use Diabetes mellitus complication status: without complication Qualified Code(s): E11.9 - Type 2 diabetes mellitus without complications; Z79.4 - terminal carman (current) use of insulin (5) Dyslipidemia Code(s): E78.5 - HYPERLIPIDEMIA, UNSPECIFIED Status: Chronic (6) HTN (hypertension) Code(s): I10 - ESSENTIAL (PRIMARY) HYPERTENSION Status: Chronic Qualifiers: Hypertension type: essential hypertension Qualified Code(s): I10 - Essential (primary) hypertension - Plan * Cardiology following. Trops trending down now. * Has some peripheral edema. Agree with plan for diuresis. * Diarrhea may be exacerbated by the colchicine. Will reduce the dose of that for now. * LLQ TTP is mild. may be associated with diarrhea. Continue IV abx * Do not want to consider discharge until she is able to clearly tolerate po' s.
--- NOTE | 2018-05-10 14:42 | PRG ---
DATE OF SERVICE: 05/10/2018 SERVICE: Pulmonary Medicine. INTERVAL HISTORY: The patient is doing great from respiratory standpoint. Last night, she had a vomiting episode. Since then, the weird GI discomfort that she experienced yesterday has resolved. This morning, she was able to tolerate a little bit of p.o. She denies any current fevers or chills. She is not having any shortness of breath at this point. PHYSICAL EXAMINATION: VITAL SIGNS: Afebrile, pulse 71, blood pressure 149/70, respirations 18, and saturation 100% on room air. Her fever has gone away and has not come back. HEENT: Normocephalic and atraumatic. Sclerae are white. Conjunctivae pink. Oral mucosa is moist without lesions. LUNGS: Extensive crackles are present. No prolonged expiratory phase or wheezing appreciated. HEART: Normal rate and regular. ABDOMEN: Soft, nontender, and nondistended. Bowel sounds are positive. MUSCULOSKELETAL: No cyanosis or clubbing. No pitting in the bilateral lower extremities. NEUROLOGIC: Grossly nonfocal. LABORATORY DATA: WBC 7.8, hemoglobin 10.4, and platelets 296,000. Creatinine 1.56 and up-trending. Basic metabolic profile is otherwise unremarkable. CK-MB is low. Troponin is downtrending to 3.5. 1/2 blood cultures is growing coag-negative Staph. Respiratory virus panel and urine cultures are negative. ASSESSMENT: 1. Acute hypoxic respiratory failure, resolved. 2. Non ST-elevation myocardial infarction. 3. Severe sepsis, source unknown. 4. Type 2 diabetes mellitus. 5. History of medical noncompliance. DISCUSSION AND PLAN: The patient is once again a little volume overloaded. Vancomycin will be discontinued. I will initiate some Lasix as the patient is significantly volume up. We will check her basic metabolic profile, and magnesium once again in the morning. Pulmonary/Critical Care will continue to follow along for now. Job ID: [id number]
--- NOTE | 2018-05-10 18:48 | EKG ---
Test Reason : Blood Pressure : / mmHG Vent. Rate : 083 BPM Atrial Rate : 083 BPM P-R Int : 188 ms QRS Dur : 094 ms QT Int : 372 ms P-R-T Axes : 018 099 057 degrees QTc Int : 437 ms Normal sinus rhythm Rightward axis Borderline ECG When compared with ECG of 07-MAY-2018 06:54, No significant change was found Confirmed by Grisel MACKEY ([id number]) on 05/10/2018 6:48:17 PM Referred By: Confirmed By:Grisel MACKEY
[2018-05-10] MEDS: Atorvastatin Calcium 40 MG TAB PO SCH (20:41)
[2018-05-11] MEDS: Piperacillin/Tazobactam 3.375 GM in Sodium Chloride 0.9% 100 ML IVPB SCH ×4 (02:53→20:39)
[2018-05-11 06:38] LABS: Anion Gap 11 mmol/L (10-20); BUN (Urea Nitrogen) 10 mg/dL (7.0-18.7); Calc. Creatinine Clearance 74 mL/min (70-130); Calcium 8.8 mg/dL (7.8-10.44); Carbon Dioxide 24 mmol/L (22-29); Chloride 108 mmol/L (98-107); Estimated GFR-MDRD 32; Glucose 97 mg/dL (70-105); Magnesium 1.6 mg/dL (1.6-2.6); Potassium 3.2 mmol/L (3.5-5.1); Sodium 140 mmol/L (136-145)
[2018-05-11] MEDS ORDERED: Potassium Chloride 20 MEQ TAB PO SCH ×2 (06:45→21:45)
[2018-05-11] MEDS: Lisinopril 20 MG TAB PO SCH (07:45)
[2018-05-11] MEDS: Metoprolol Tartrate 100 MG TAB PO SCH ×2 (07:46→20:41)
[2018-05-11] MEDS: Amlodipine 10 MG TAB PO SCH (07:46)
[2018-05-11] MEDS: Colchicine 0.6 MG TAB PO SCH ×2 (07:47→20:40)
[2018-05-11] MEDS: Clopidogrel Bisulfate 75 MG TAB PO SCH (07:47)
[2018-05-11] MEDS ORDERED: Furosemide 40 MG/4 ML VIAL SLOW IVP SCH (09:00)
[2018-05-11] MEDS: Insulin Glargine 60 UNITS in Pre-Filled Syringe 1 EACH SC SCH (10:16)
--- NOTE | 2018-05-11 10:17 | PRG ---
DATE OF SERVICE: 05/11/2018 SUBJECTIVE: The patient reports she is continuing to have loose stools and still has very slight tenderness in her left lower quadrant that is mild and very manageable. She is continuing to feel some generalized edema. Otherwise, she is generally feeling better and has no new complaints. PHYSICAL EXAMINATION: VITAL SIGNS: Temperature max 99.4, pulse 71, respirations 20, O2 saturation 93% on room air, BP 174/77. GENERAL APPEARANCE: Age-appropriate female. She is in no distress. She is awake, alert, pleasant, cooperative, and appears healthy and nontoxic. HEART: Regular rate and rhythm without murmurs, gallops, or rubs. LUNGS: Clear bilaterally with no wheezes or rales. ABDOMEN: Soft, nondistended. Positive bowel sounds. Very minimal tenderness to palpation in the left lower quadrant. EXTREMITIES: Have 1 to 2+ pitting edema in the pretibial area and some generalized edema of the upper extremities as well. LABORATORY DATA: Sodium 140, potassium 3.2, chloride 108, CO2 is 24, BUN 10, creatinine 1.72, glucose 97 up to 158, calcium 8.8, magnesium 1.6. Blood cultures from the right hand growing two separate subsets of coag-negative Staphylococcus and from the right arm growing a gram-positive vishal. IMPRESSION AND PLAN: 1. Acute hypoxic respiratory failure, resolved. 2. Severe sepsis. The patient presented with a septic picture with no specific identifiable source of infection. The sepsis and systemic inflammatory response syndrome picture appears to be resolved presently. 3. Positive blood cultures. The patient has two coag-negative Staphylococcus growing from the right hand blood culture, which certainly may be contaminant, but she also has a gram-positive vishal growing from the other site culture. We will need to await results on that. She is still on Zosyn and will continue with that for now. She has largely defervesced and appears to be feeling substantially improved. 4. Eob-DD-hlzsfpypn myocardial infarction. The patient had percutaneous coronary intervention with bare metal stents in the mid left anterior descending and first diagonal. Her troponins peaked and were trending down. She is generally asymptomatic. 5. Pleuritic chest pain. The patient was started on colchicine by Dr. Matute, that appears to be improved and the dose has been reduced. 6. Diarrhea. The patient likely has diarrhea secondary to the colchicine. Again, that dose has been reduced. 7. Nausea and vomiting. The patient had isolated episode, which appears to be largely resolved. This may also have been related to medications. 8. Diabetes mellitus type 2. The patient appears to have a very good control of her blood sugars presently. 9. Coronary artery disease. The patient is currently on beta-ruth, Imdur, statin, and aspirin. 10. Hypertension. Blood pressure continues to run a bit high. She has had a large dose of beta-ruth added to her regimen. She is also on high-dose NATASHA inhibitor and full dose of amlodipine. 11. Acute renal failure. The patient's creatinine continues to climb. She appears to be volume overloaded and has been diuresing a bit yesterday and today. It is likely not dehydration resulting in her renal insufficiency. Concerning for the fact that she did have heart catheterization and certainly has hypertension, hyperlipidemia, and diabetes, all potentially causing some long-term risk for renal disease. We will keep her at least one more day and monitor her creatinine tomorrow. If it continues to climb, we will consult Nephrology and may need to consider the NATASHA inhibitor. 12. History of hyperlipidemia. Continue with statin. Job ID: [id number]
[2018-05-11] MEDS: Insulin Regular 300 UNITS/3 ML VIAL SC PRN (13:06)
--- NOTE | 2018-05-11 14:47 | PDOC.CTH ---
<Cata Condon - Last Filed: 05/11/18 14:59> Cardiology Progress Note - Subjective The pt seen and examined. No overnight events. No cardiac complaints. - Objective Vital Signs Temp Pulse Pulse Pulse Resp BP BP 05/11/18 12:28 74 70 153/72 H 142/66 H 05/11/18 12:00 97.9 F 79 16 05/11/18 07:58 97.9 F 78 19 05/11/18 04:00 99.4 F 71 20 BP BP Pulse Ox Pulse Ox Pulse Ox 05/11/18 12:28 92 L 93 L 05/11/18 12:00 149/73 H 97 05/11/18 07:58 179/56 H 93 L 05/11/18 04:00 170/74 H 93 L Admit Weight 243 lb 9.773 oz Weight 259 lb 11.2 oz 05/10/18 05/11/18 05/12/18 06:59 06:59 06:59 Intake Total 1149 2304 Output Total 1750 2900 Balance -601 -596 - Physical Examination General/Neuro: alert & oriented x3 Neck: no JVD present Lungs: CTA Heart: RRR Abdomen: soft Extremities: other: (No edema) - Telemetry Telemetry Rhythm: SR 60s - Labs Result Diagrams: 05/10/18 05:17 05/11/18 05:31 Troponin/CKMB CK-MB (CK-2) 0.8 ng/mL (0-6.6) 05/10/18 05:17 Troponin I 3.574 ng/mL (< 0.028) H* 05/10/18 05:17 - Assessment/Plan 1. CAD with s/p PCI with BMS to LAD and Diag 1 on 05/05/18 - stable with ASA, BBlocker, Lisinopril, and Statin. On Colchicine 0.3mg BID for pain control from [place]. 2. HTN - Norvasc 10mg qd was resumed from this AM. 3. Hyperlipidemia - on Lipitor 80mg qd 4. DM type 2 - managed by PCP 5. N&V - stable MAR reviewed Review of Systems - Review of Systems Constitutional: reports: no symptoms reported EENTM: reports: no symptoms reported Respiratory: reports: no symptoms reported Cardiac (ROS): reports: no symptoms reported ABD/GI: reports: no symptoms reported : reports: no symptoms reported Musculoskeletal: reports: no symptoms reported <Nanda Oliveira - Last Filed: 05/11/18 17:46> Cardiology Progress Note - Objective Vital Signs Temp Pulse Pulse Pulse Resp BP BP 05/11/18 12:28 74 70 153/72 H 142/66 H 05/11/18 12:00 97.9 F 79 16 05/11/18 07:58 97.9 F 78 19 BP BP Pulse Ox Pulse Ox Pulse Ox 05/11/18 12:28 92 L 93 L 05/11/18 12:00 149/73 H 97 05/11/18 07:58 179/56 H 93 L Admit Weight 243 lb 9.773 oz Weight 259 lb 11.2 oz 05/10/18 05/11/18 05/12/18 06:59 06:59 06:59 Intake Total 1149 2304 Output Total 1750 2900 Balance -601 -596 - Labs Result Diagrams: 05/10/18 05:17 05/11/18 05:31 Troponin/CKMB CK-MB (CK-2) 0.8 ng/mL (0-6.6) 05/10/18 05:17 Troponin I 3.574 ng/mL (< 0.028) H* 05/10/18 05:17 - Assessment/Plan Pt. seen and eval. by me. I agree with the A/P by the FEATHER STITCHER.Chest clear, RRR, mild edema.May try low dose diuretics.
[2018-05-11] MEDS: Atorvastatin Calcium 40 MG TAB PO SCH (20:41)
[2018-05-11] MEDS ORDERED: Magnesium Sulfate 2 GM in Sodium Chloride 0.9% 100 ML IVPB SCH (21:45)
--- NOTE | 2018-05-11 22:51 | PRG ---
DATE OF SERVICE: 05/11/2018 SERVICE: Pulmonary Medicine. INTERVAL HISTORY: The patient denies having any significant chest discomfort or reflux type symptoms. She is actually breathing a little bit better today. She is really happy that her lower extremity swelling has improved. Otherwise, there has been no interval change to her condition. OBJECTIVE: VITAL SIGNS: Afebrile currently with a T-max of 99.2, pulse 79, blood pressure 160/71, respirations 16, and saturation 95% on room air. GENERAL: The patient is awake, alert, in no apparent distress. LUNGS: Excellent air entry. There remains some bibasilar dependent crackles. That being said, there is significant improvement there. HEART: Normal rate, regular. ABDOMEN: Soft, nontender, and nondistended. Bowel sounds are positive. MUSCULOSKELETAL: No cyanosis or clubbing. There is 1+ pitting in the bilateral lower extremities. NEUROLOGIC: Grossly nonfocal. LABORATORY DATA: WBC 7.8, hemoglobin 10.4, and platelets 296,000. Potassium 3.2. Basic metabolic profile is otherwise unremarkable. Creatinine has trended upward to 1.72, magnesium 1.6. Coag-negative staph is growing in one blood culture (2 separate species). There is also gram-positive vishal growing in her blood culture. Respiratory virus panel is negative. ASSESSMENT: 1. Exu-SS-xyueoirlo myocardial infarction. 2. Severe sepsis, unknown source. 3. Acute hypoxic respiratory failure, resolved. 4. Type 2 diabetes mellitus. DISCUSSION AND PLAN: We will continue to diurese the patient until she has returned to euvolemia, which she is fast approaching. We will continue checking labs through time. She has a little bit of an acute kidney injury, which preceded our diuretics, which likely was secondary to vancomycin toxicity or was associated with her original presentation. Job ID: [id number]
[2018-05-12] MEDS: Piperacillin/Tazobactam 3.375 GM in Sodium Chloride 0.9% 100 ML IVPB SCH ×3 (01:25→14:25)
[2018-05-12] MEDS: Mag-Al 1200 mg/1200 mg/30 ML UDCUP PO PRN (02:33)
[2018-05-12] MEDS: Acetaminophen 325 MG TAB PO PRN (06:12)
[2018-05-12 06:16] LABS: Anion Gap 11 mmol/L (10-20); BUN (Urea Nitrogen) 12 mg/dL (7.0-18.7); Calc. Creatinine Clearance 68 mL/min (70-130); Carbon Dioxide 26 mmol/L (22-29); Chloride 107 mmol/L (98-107); Estimated GFR-MDRD 29; Glucose 94 mg/dL (70-105); Magnesium 2.1 mg/dL (1.6-2.6); Potassium 3.5 mmol/L (3.5-5.1); Sodium 140 mmol/L (136-145)
[2018-05-12] MEDS: Colchicine 0.6 MG TAB PO SCH (08:26)
[2018-05-12] MEDS: Clopidogrel Bisulfate 75 MG TAB PO SCH (08:26)
[2018-05-12] MEDS: Amlodipine 10 MG TAB PO SCH (08:26)
[2018-05-12] MEDS: Lisinopril 20 MG TAB PO SCH (08:27)
[2018-05-12] MEDS: Insulin Glargine 60 UNITS in Pre-Filled Syringe 1 EACH SC SCH (08:27)
[2018-05-12] MEDS: Metoprolol Tartrate 100 MG TAB PO SCH ×2 (08:27→20:32)
[2018-05-12] MEDS ORDERED: Furosemide 40 MG/4 ML VIAL SLOW IVP SCH (09:00)
--- NOTE | 2018-05-12 12:49 | PDOC.CTH ---
<Cata Condon - Last Filed: 05/12/18 13:00> Cardiology Progress Note - Subjective The pt seen and examined. No overnight events. No cardiac complaints. - Objective Vital Signs Temp Pulse Resp BP Pulse Ox 05/12/18 08:26 75 05/12/18 08:00 99.5 F 70 18 191/81 H 96 05/12/18 05:41 97 05/12/18 04:02 99.0 F 75 20 178/72 H 97 Admit Weight 243 lb 9.773 oz Weight 249 lb 6 oz 05/11/18 05/12/18 05/13/18 06:59 06:59 06:59 Intake Total 2304 1502 Output Total 2900 7200 Balance -325 -2999 - Physical Examination General/Neuro: alert & oriented x3 Neck: no JVD present Lungs: CTA Heart: RRR Abdomen: soft Extremities: other: (No edema) - Labs Result Diagrams: 05/10/18 05:17 05/12/18 05:03 Troponin/CKMB CK-MB (CK-2) 0.8 ng/mL (0-6.6) 05/10/18 05:17 Troponin I 3.574 ng/mL (< 0.028) H* 05/10/18 05:17 - Assessment/Plan 1. CAD with s/p PCI with BMS to LAD and Diag 1 on 05/05/18 - stable with ASA, BBlocker, Lisinopril, and Statin. On Colchicine 0.3mg BID for pain control from [place]. 2. HTN - Start Hydralazine 25mg TID from this pm. 3. Hyperlipidemia - on Lipitor 80mg qd 4. DM type 2 - managed by PCP 5. N&V - stable 6. CKD - worsen today. MAR reviewed Review of Systems - Review of Systems Constitutional: reports: no symptoms reported EENTM: reports: no symptoms reported Respiratory: reports: no symptoms reported Cardiac (ROS): reports: no symptoms reported ABD/GI: reports: no symptoms reported : reports: no symptoms reported Musculoskeletal: reports: no symptoms reported Skin: reports: no symptoms reported <Nanda Oliveira - Last Filed: 05/12/18 22:03> Cardiology Progress Note - Objective Vital Signs Temp Pulse Pulse Pulse Resp BP BP 05/12/18 20:32 74 05/12/18 20:22 98.6 F 74 16 05/12/18 16:00 98.6 F 72 17 05/12/18 14:24 65 05/12/18 12:54 66 68 162/52 H 139/64 05/12/18 12:00 98.1 F 65 18 BP BP Pulse Ox Pulse Ox Pulse Ox 05/12/18 20:32 05/12/18 20:22 188/85 H 94 L 05/12/18 16:00 152/65 H 94 L 05/12/18 14:24 05/12/18 12:54 94 L 92 L 05/12/18 12:00 132/62 92 L Admit Weight 243 lb 9.773 oz Weight 249 lb 6 oz 05/11/18 05/12/18 05/13/18 06:59 06:59 06:59 Intake Total 2304 1502 960 Output Total 2900 7200 1800 Balance -596 -5698 -840 - Labs Result Diagrams: 05/10/18 05:17 05/12/18 05:03 Troponin/CKMB CK-MB (CK-2) 0.8 ng/mL (0-6.6) 05/10/18 05:17 Troponin I 3.574 ng/mL (< 0.028) H* 05/10/18 05:17 - Assessment/Plan Pt. seen and eval. by me. I agree with the A/P by the [employer] MACH[employer]ERY. RRR.
[2018-05-12] MEDS: hydrALAZINE 25 MG TAB PO SCH ×2 (14:24→20:32)
--- NOTE | 2018-05-12 16:05 | PRG ---
DATE OF SERVICE: 05/12/2018 SUBJECTIVE: The patient continues to feel somewhat better. She continues to have 2 to 3 loose stools per day. She otherwise is feeling okay. She is having no chest pain. She has been ambulating well. OBJECTIVE: VITAL SIGNS: Temperature 98.1, respirations 18, pulse 66, blood pressure 162/52, O2 saturation 94%. GENERAL APPEARANCE: Age-appropriate female. She is in no distress. She is awake, alert, oriented, pleasant, cooperative. HEART: Regular rate and rhythm without murmurs, gallops, or rubs. LUNGS: Clear to auscultation bilaterally. Good chest wall expansion and air exchange. ABDOMEN: Soft, nontender, nondistended. Positive bowel sounds. No masses. No organomegaly. EXTREMITIES: Warm and dry with no edema. LABORATORY DATA: Creatinine is now up to 1.88. Blood sugars well controlled between 94 and 181. Magnesium 2.1. IMPRESSION AND PLAN: 1. Acute hypoxic respiratory failure, resolved. 2. Severe sepsis with unclear source. This appears to be resolved. 3. Positive blood cultures, initially growing two coag-negative Staph from the head and one gram-positive vishal growing from the blood drawn from the arm. No positive identification on the vishal as of this time. Still on Zosyn for now. She appears to be clinically improved. 4. Fgt-YY-yyrisko elevation myocardial infarction, had a percutaneous coronary intervention with bare-metal stents. Troponin is trending down. 5. Pleuritic chest pain, resolved, hoping to stop colchicine due to the diarrhea. 6. Diarrhea. Stool studies have been sent and have been received. No results at this time. Again, I suspect this is largely due to the colchicine. I hope to get that discontinued today. 7. Nausea and vomiting, brief episode, resolved. 8. Diabetes mellitus, well controlled. 9. Coronary artery disease. Continue aspirin, statin, beta-blockers, and Imdur. 10. Hypertension, stable. Holding her NATASHA inhibitor now due to her renal function. 11. Acute renal failure. I discussed this with Dr. Negro. The patient had a CT scan for PE protocol and then heart catheterization. It is likely that she had some contrast-induced nephropathy. It is also possible this could be related to the Zosyn. Because it continued to climb, we will go ahead and consult Nephrology, although I suspect this is likely peaking and will improve from here. NATASHA inhibitor has been held until Nephrology can see the patient. 12. History of hyperlipidemia. Continue statin. Job ID: [id number]
[2018-05-12] MEDS: Insulin Regular 300 UNITS/3 ML VIAL SC PRN (17:33)
[2018-05-12] MEDS ORDERED: Potassium Chloride 20 MEQ TAB PO SCH (19:00)
--- NOTE | 2018-05-12 19:55 | PRG ---
DATE OF SERVICE: 05/12/2018 SERVICE: Pulmonary Medicine. INTERVAL HISTORY: The patient had another similar event of reflux type symptoms. This came during the time that she got her IV infusions. They were on top of each other. She denies any fevers or chills. She did not have any significant events overnight. OBJECTIVE: VITAL SIGNS: Afebrile. Pulse 72, blood pressure 152/65, respirations 17, saturation 94% on room air. GENERAL: The patient is awake, alert, in no apparent distress. LUNGS: Excellent air entry. Crackles remain. HEART: Normal rate, regular. ABDOMEN: Soft, nontender, and nondistended. Bowel sounds are positive. MUSCULOSKELETAL: No cyanosis or clubbing. 1+ pitting is present. NEUROLOGIC: Grossly nonfocal. LABORATORY DATA: Creatinine is 1.88 and arriving at its peak. Basic metabolic profile and magnesium are otherwise unremarkable. ASSESSMENT: 1. Wdl-GB-ondaqxvtj myocardial infarction. 2. Severe sepsis, possibly diverticulitis based on physical exam. 3. Acute hypoxic respiratory failure, resolved. 4. Type 2 diabetes mellitus. DISCUSSION AND PLAN: We will continue to gently diurese the patient through time. She remains at touch volume overloaded. The acute kidney injury was likely secondary to her low blood pressure on presentation in conjunction with contrast-induced nephropathy. Pulmonary Critical Care will continue to follow along for the time being. At this point, our source is completely unidentified. As such, I am inclined to switch her over to p.o. antibiotics directed at diverticulitis. I have counseled the patient that if things get worse in the weeks to come, she will need to return to the medical community. Job ID: [id number]
[2018-05-12] MEDS: Atorvastatin Calcium 40 MG TAB PO SCH (20:24)
[2018-05-12] MEDS: Ciprofloxacin 500 MG TAB PO SCH (20:24)
[2018-05-12] MEDS: metroNIDAZOLE 500 MG TAB PO SCH (20:24)
[2018-05-13 06:18] LABS: Anion Gap 12 mmol/L (10-20); BUN (Urea Nitrogen) 14 mg/dL (7.0-18.7); Calc. Creatinine Clearance 41 mL/min (70-130); Calcium 8.7 mg/dL (7.8-10.44); Carbon Dioxide 23 mmol/L (22-29); Chloride 106 mmol/L (98-107); Estimated GFR-MDRD 29; Glucose 189 mg/dL (70-105); Potassium 3.7 mmol/L (3.5-5.1); Sodium 137 mmol/L (136-145)
--- NOTE | 2018-05-13 09:05 | CON ---
DATE OF CONSULTATION: REASON FOR CONSULTATION: Acute kidney injury. IMPRESSION: Acute kidney injury. This is likely multifactorial including but are limited to the followin. Recent exposure to contrast, though the timeline seems a little bit off. 2. Medications introduction of NATASHA inhibitor while undergoing diuresis. 3. Increased GI loss of fluid diarrhea. PLAN: 1. Hold diuretics and consider deescalating the NATASHA inhibitor or hold until the patient's renal function stabilizes. 2. Avoid potentially-nephrotoxic agents including nonsteroidal anti-inflammatory drugs. 3. Renally dose all medications. 4. Further management to be dependent on the clinical course. HISTORY: This is a 47-year-old female patient, who came in with chest pain and having shortness of breath. The patient on presentation was with non-ST elevation [place]. The patient has had previous coronary artery disease problems with 2 stents deployed in the coronaries. The patient did undergo cardiac catheterization with placement of stent. The patient was started on NATASHA inhibitor and diuretics. On presentation, creatinine was noted to be within the normal range; however, over the course of hospitalization, creatinine has risen. At this time, the patient's creatinine has gone up to 1.8 causing renal consultation. PAST MEDICAL HISTORY: Significant for coronary artery disease, type 2 diabetes, dyslipidemia, hypertension, and migraine. MEDICATIONS: As documented on [employer]. ALLERGIES: NO KNOWN DRUG ALLERGIES. SOCIAL HISTORY: No alcohol. No tobacco. No illicit drug use. FAMILY HISTORY: Significant for diabetes. REVIEW OF SYSTEMS: As documented in the body of history, all other systems were reviewed and found not to be significantly related to presenting illness. LABORATORY INVESTIGATION: Showed a creatinine of 1.88, potassium 3.5. Urinalysis showed presence of protein. PHYSICAL EXAMINATION: VITAL SIGNS: On examination, the patient was noted with the following vital signs; afebrile with temperature 98.6, pulse 74, respiratory rate of 16, and O2 sat of 94% with blood pressure of 188/85 to 152/65. HEENT: Unremarkable. Moist oral mucosa. No conjunctival injection or icterus. CARDIOVASCULAR SYSTEM: First and second heart sounds were heard. RESPIRATORY SYSTEM: Clear to auscultation. DIGESTIVE SYSTEM: Revealed a benign abdomen with positive bowel sounds. EXTREMITIES: No peripheral edema. SKIN: No new bruise or rash. LYMPHATICS: No peripheral lymphadenopathy. SUMMARY: A 47-year-old female patient, who presented here with non-ST elevation [place], had 2 stents placed, now experiencing a rise in creatinine. Thank you for this consultation. We will follow with you. Job ID: [id number]
[2018-05-13] MEDS: Insulin Regular 300 UNITS/3 ML VIAL SC PRN ×3 (09:16→17:48)
[2018-05-13] MEDS: Furosemide 40 MG/4 ML VIAL SLOW IVP SCH (09:17)
[2018-05-13] MEDS: Insulin Glargine 60 UNITS in Pre-Filled Syringe 1 EACH SC SCH (09:17)
[2018-05-13] MEDS: Amlodipine 10 MG TAB PO SCH (09:18)
[2018-05-13] MEDS: Metoprolol Tartrate 100 MG TAB PO SCH ×2 (09:18→20:25)
[2018-05-13] MEDS: Ciprofloxacin 500 MG TAB PO SCH ×2 (09:18→20:25)
[2018-05-13] MEDS: metroNIDAZOLE 500 MG TAB PO SCH ×3 (09:18→20:25)
[2018-05-13] MEDS: Clopidogrel Bisulfate 75 MG TAB PO SCH (09:18)
[2018-05-13] MEDS: hydrALAZINE 25 MG TAB PO SCH ×3 (09:22→20:25)
[2018-05-13] MEDS: Lisinopril 20 MG TAB PO SCH (09:22)
--- NOTE | 2018-05-13 11:27 | PRG ---
DATE OF SERVICE: 05/13/2018 SERVICE: Pulmonary Medicine. INTERVAL HISTORY: The patient is doing outstanding from respiratory standpoint. She denies any chest pain, fevers, chills, nausea, or vomiting. She is breathing comfortably. She is not having chest pain or belly pain. Her lower extremity swelling is improved and she has actually been much more ambulatory. With this, she does not have dyspnea, that slows her down. Her creatinine has actually stabilized and starting to trend downward. Otherwise, there has been no interval change to her condition. OBJECTIVE: VITAL SIGNS: Afebrile, pulse 72, blood pressure 188/80, respirations 20, saturation 95% on room air. GENERAL: The patient is awake, alert, in no apparent distress. LUNGS: Excellent air entry. There is no prolonged expiratory phase. No wheezing, rhonchi, or crackles are appreciated. HEART: Normal rate and regular. ABDOMEN: Soft, nontender, and nondistended. Bowel sounds are positive. MUSCULOSKELETAL: No cyanosis or clubbing. There is trace to 1+ pitting in the bilateral lower extremities. NEUROLOGIC: Grossly nonfocal. LABORATORY: Creatinine 1.86 and downtrending. Potassium 3.7. Basic metabolic profile is otherwise unremarkable. ASSESSMENT: 1. Severe sepsis, likely secondary to diverticulitis based on physical exam. 2. Vov-QW-zrcexacnq myocardial infarction. 3. Acute hypoxic respiratory failure, resolved. 4. Type 2 diabetes mellitus. DISCUSSION AND PLAN: My suspicion is that we are dealing with an acute kidney injury that will be resolving now. She remains a little bit volume overloaded, so we can continue to diurese on a daily basis. I will switch her antibiotics over to p.o. She will need to complete at least a 14-day course of antibiotics. At this point, she has no further requirements for inpatient Pulmonary Critical Care opinion, and I will sign off. Please call with additional questions or concerns moving forward. Job ID: [id number]
[2018-05-13] MEDS: Atorvastatin Calcium 40 MG TAB PO SCH (20:25)
--- NOTE | 2018-05-13 20:27 | PRG ---
DATE OF SERVICE: 05/13/2018 SUBJECTIVE: The patient is feeling well in general. She is breathing comfortably. She does report that she continues to have loose stools. She otherwise has no complaints. She has been getting up and around. OBJECTIVE: VITAL SIGNS: Noted and stable. HEART: Regular rate and rhythm without murmurs, gallops, or rubs. LUNGS: Clear to auscultation bilaterally. Good chest wall expansion and air exchange. ABDOMEN: Soft, nontender, nondistended. Positive bowel sounds. No masses. No organomegaly. EXTREMITIES: Warm and dry without edema. IMPRESSION AND PLAN: 1. Original presentation of sepsis with no specific source of infection identified. She has been converted over to oral antibiotics by Dr. Negro. Covering gastrointestinal source given her ongoing diarrhea with Cipro and Flagyl. 2. Faa-JT-epmwgdmac myocardial infarction, status post bare metal stenting of the mid left anterior descending and first diagonal, and the patient is doing well from that perspective. 3. Acute renal injury. I appreciate Nephrology input and agree that this is likely related to some contrast-related nephropathy. Her creatinine today is leveled off at 1.86. I have held her NATASHA inhibitor and will reassess her numbers in the morning. 4. Persistent diarrhea. The patient was on colchicine that has been discontinued. However, her symptoms persist. It is related to that. I suspect they will be improving by tomorrow. 5. Diabetes mellitus, stable. 6. Hypertension, well controlled. 7. Disposition: The patient's creatinine remains reasonably stable, will be improved by tomorrow. We will anticipate discharge for outpatient followup. Job ID: [id number]
--- NOTE | 2018-05-13 22:24 | PRG ---
DATE OF SERVICE: 05/13/2018 SUBJECTIVE: The patient is seen and examined. She seems to be doing much better. OBJECTIVE: VITAL SIGNS: Noted with the following vital signs. Afebrile, hemodynamically stable. HEENT: Unremarkable. CARDIOVASCULAR: First and second heart sounds were heard. RESPIRATORY: Clear to auscultation. DIGESTIVE SYSTEM: Revealed a benign abdomen with positive bowel sounds. EXTREMITIES: No peripheral edema. SKIN: No new gross rash. LYMPHATICS: No peripheral lymphadenopathy. LABORATORY INVESTIGATION: Showed a creatinine around 1.8. IMPRESSION: 1. Acute kidney injury, likely multifactorial etiology as enumerated in the renal consult note. 2. Non-ST elevation myocardial infarction, status post stent. PLAN: 1. We will continue with current renal supportive measures as enumerated in the consult note. 2. Further management will be dependent on the clinical course. Job ID: [id number]
[2018-05-14 06:22] LABS: Anion Gap 11 mmol/L (10-20); BUN (Urea Nitrogen) 17 mg/dL (7.0-18.7); Calc. Creatinine Clearance 63 mL/min (70-130); Calcium 9.3 mg/dL (7.8-10.44); Carbon Dioxide 25 mmol/L (22-29); Chloride 106 mmol/L (98-107); Estimated GFR-MDRD 29; Glucose 119 mg/dL (70-105); Potassium 3.8 mmol/L (3.5-5.1); Sodium 138 mmol/L (136-145)
[2018-05-14] MEDS: Clopidogrel Bisulfate 75 MG TAB PO SCH (08:40)
[2018-05-14] MEDS: metroNIDAZOLE 500 MG TAB PO SCH ×3 (08:40→20:43)
[2018-05-14] MEDS: Insulin Glargine 60 UNITS in Pre-Filled Syringe 1 EACH SC SCH (08:40)
[2018-05-14] MEDS: Amlodipine 10 MG TAB PO SCH (08:41)
[2018-05-14] MEDS: Lisinopril 20 MG TAB PO SCH (08:42)
[2018-05-14] MEDS: Metoprolol Tartrate 100 MG TAB PO SCH ×2 (08:42→20:39)
[2018-05-14] MEDS: Ciprofloxacin 500 MG TAB PO SCH ×2 (08:43→20:39)
[2018-05-14] MEDS: Furosemide 40 MG/4 ML VIAL SLOW IVP SCH (08:44)
[2018-05-14] MEDS: hydrALAZINE 25 MG TAB PO SCH ×3 (09:08→20:39)
[2018-05-14] MEDS: Insulin Regular 300 UNITS/3 ML VIAL SC PRN (11:58)
[2018-05-14] MEDS: Atorvastatin Calcium 40 MG TAB PO SCH (20:39)
--- NOTE | 2018-05-14 22:01 | PRG ---
DATE OF SERVICE: 05/14/2018 SUBJECTIVE: The patient is seen and examined, noted with the following vital signs. OBJECTIVE: VITAL SIGNS: Afebrile. Temperature 98.3, pulse 55, respiratory rate of 18, O2 saturation 96%, and blood pressure 142/82. HEENT EXAMINATION: Unremarkable. Moist oral mucosa. NECK: Supple. No conjunctival injection or icterus. CARDIOVASCULAR SYSTEM: First and second heart sounds were heard. RESPIRATORY SYSTEM: Clear to auscultation. DIGESTIVE SYSTEM: Revealed a benign abdomen with positive bowel sounds. EXTREMITIES: No peripheral edema. SKIN: No new gross rash. LYMPHATICS: No peripheral lymphadenopathy. LABORATORY INVESTIGATION: Showed a hemoglobin of 10.4. Chemistry showed a creatinine of 1.86 and BUN of 17. IMPRESSION: Acute kidney injury. Creatinine seems to have plateaued around 1.86. PLAN: 1. We will continue with current renal supportive measures. 2. If patient is discharged, we recommend outpatient Nephrology followup within the next 4 weeks. 3. Further management will be dependent on the clinical course. Job ID: [id number]
[2018-05-15 05:34] LABS: Anion Gap 15 mmol/L (10-20); BUN (Urea Nitrogen) 21 mg/dL (7.0-18.7); Calc. Creatinine Clearance 64 mL/min (70-130); Carbon Dioxide 18 mmol/L (22-29); Chloride 106 mmol/L (98-107); Estimated GFR-MDRD 29; Glucose 127 mg/dL (70-105); Potassium 4.4 mmol/L (3.5-5.1); Sodium 135 mmol/L (136-145)
[2018-05-15] MEDS: Metoprolol Tartrate 100 MG TAB PO SCH (08:26)
[2018-05-15] MEDS: Clopidogrel Bisulfate 75 MG TAB PO SCH (08:26)
[2018-05-15] MEDS: metroNIDAZOLE 500 MG TAB PO SCH ×2 (08:27→14:55)
[2018-05-15] MEDS: Ciprofloxacin 500 MG TAB PO SCH (08:27)
[2018-05-15] MEDS: Lisinopril 20 MG TAB PO SCH (08:27)
[2018-05-15] MEDS: hydrALAZINE 25 MG TAB PO SCH ×2 (08:27→14:55)
[2018-05-15] MEDS: Furosemide 40 MG/4 ML VIAL SLOW IVP SCH (08:27)
[2018-05-15] MEDS: Amlodipine 10 MG TAB PO SCH (08:27)
[2018-05-15] MEDS: Insulin Glargine 60 UNITS in Pre-Filled Syringe 1 EACH SC SCH (08:28)
[2018-05-15] MEDS: Insulin Regular 300 UNITS/3 ML VIAL SC PRN (12:03)
[2018-05-15 14:59] VITALS: BP 139/65; TEMP 98.9
--- NOTE | 2018-05-16 08:53 | DIS ---
DATE OF ADMISSION: 05/05/2018 DATE OF DISCHARGE: 05/15/2018 DISCHARGE DIAGNOSES: 1. Non-ST elevation myocardial infarction, status post bare-metal stenting of the left anterior descending and first diagonal branch. 2. Acute kidney injury, likely due to contrast-induced nephropathy. 3. Diarrhea. Questionable influence of colchicine. 4. Diabetes mellitus type 2, insulin requiring. 5. Hypertension. 6. Dyslipidemia. CONSULTATIONS: 1. Dr. Matute with Cardiology Service. 2. Dr. Negro with Pulmonary and Critical Care Services. 3. Dr. Miguel Bennett with Nephrology Service. PERTINENT LAB AND X-RAY FINDINGS: 1. Creatinine ranged between 0.82 to 1.88. Estimated GFR ranged between 29 to 74. Troponin I ranged between 3.57 to 10.57. BNP 29. Total cholesterol 268, triglycerides 370, HDL 42, LDL 152. CBC showed a hemoglobin ranging between 10.0 to 12.7. Urine culture dated 05/06/2018, showed no growth at 48 hours. Respiratory virus panel by PCR, dated 05/06/2018, showed negative findings. Blood cultures x2 on 05/07/2018, showed one out of two positive for gram-positive rods and one out of two positive for coagulase-negative Staph species, likely skin contaminants. 2. C difficile antigen toxin dated 05/12/2018, negative. CT angiogram of the chest dated 05/05/2018, showed no evidence for pulmonary embolus. No evidence for thoracic aortic dissection or aneurysm. HOSPITAL COURSE: The patient was initially admitted after presenting with chest pain. The patient underwent extensive evaluation including serial cardiac biomarkers showing evidence of non-ST elevation myocardial infarction. The patient was evaluated by the Cardiology Service, undergoing left heart catheterization with subsequent placement of bare-metal stent to the left anterior descending and diagonal branch. The patient was continued on medical management postoperatively and stabilized. The patient was noted with elevated creatinine above baseline, likely due to contrast-induced nephropathy. The patient received IV fluids and general renal support; however, the patient's creatinine remained elevated through the hospital course. The patient was evaluated by the Nephrology Service with recommendations for general medical management and serial monitoring. The patient was also treated for gastroenteritis/diarrhea with Flagyl and ciprofloxacin; however, all stool and culture results were negative as stated previously. The patient is clinically stabilized in regard to cardiac status by the date of discharge on 05/15/2018. I have examined the patient at the time of discharge and discussed followup instructions. The patient verbalized understanding and in agreement, ready for discharge on 05/15/2018. DISCHARGE MEDICATIONS: 1. Levemir FlexPen 60 units subcutaneously daily. 2. Lisinopril 40 mg p.o. daily. 3. Zoloft 25 mg p.o. at bedtime. 4. Norvasc 10 mg p.o. daily. 5. Enteric-coated aspirin 81 mg p.o. daily. 6. Lipitor 80 mg p.o. at bedtime. 7. Ciprofloxacin 500 mg p.o. b.i.d. x5 days. 8. Plavix 75 mg p.o. daily. 9. Hydralazine 25 mg p.o. t.i.d. 10. Imdur 60 mg p.o. daily. 11. Metoprolol tartrate 100 mg p.o. b.i.d. 12. Flagyl 500 mg p.o. t.i.d. x5 days. FOLLOWUP: 1. The patient may follow up with her primary care provider, Dr. Mai Vazquez on 05/20/2018 at 9:00 a.m. 2. The patient will follow up with Dr. Miguel Bennett on 06/10/2018 at 12:00 p.m. 3. The patient will follow up with Dr. Subhash Matute with [facility] Cardiology Service on 07/15/2018 at 12:00 p.m. CONDITION ON DISCHARGE: Stable. ACTIVITY: Ad-leo. DIET: ADA and heart healthy. CODE STATUS: Full. DISPOSITION: Home, 05/15/2018. Job ID: [id number]
--- NOTE | 2018-05-16 09:07 | DIS ---
DATE OF ADMISSION: 05/05/2018 DATE OF DISCHARGE: 05/15/2018 DISCHARGE DIAGNOSES: 1. Pbv-FG-hfvgmglhi myocardial infarction. 2. Sepsis of unclear etiology. 3. Acute renal failure. 4. Diarrhea. 5. Diabetes mellitus. 6. Hypertension. HISTORY OF PRESENT ILLNESS: This patient is a 47-year-old female, who presented to the emergency department with a complaint of chest pain. She was evaluated for acute coronary syndrome and her troponin was positive at 2.37, and the patient was subsequently admitted to ICU with a subsequent troponin of 5.67. Cardiology was consulted and the patient was taken for heart catheterization, where she had bare-metal stents placed in the mid LAD and first diagonal. The patient subsequently remained on some anticoagulation and developed some nocturnal fever over 102. Pulmonary felt the patient was having some type of sepsis causing some hypoxia and potentially contributing to her FL symptoms. She had pancultures, which ultimately grew contaminant gram-positive bacteria. The patient also developed some pleuritic pain post cath procedure and was started on colchicine. She then developed diarrheal illness, which ultimately did resolve once her pleuritic pain passed and the colchicine was discontinued. The patient had some bump in her creatinine. It was felt that this may have been due to her receiving contrast both from an initial CT angiogram and heart catheterization. Her creatinine elevated to 1.[address] for a second day. Nephrology was consulted. They felt it was likely similar in related to the contrast nephropathy. It was watched an additional day and at that time, her diarrhea had resolved and her creatinine was stable, and she was felt to be stable for disposition to home. Her cultures were reviewed with Dr. Nunes and I discussed case with Dr. Bennett regarding her renal function and all were comfortable with the patient being discharged. PHYSICAL EXAMINATION: VITAL SIGNS: On the day of discharge, temperature 98.9, pulse 67, respirations 18, O2 saturation 96% on room air, and blood pressure 139/65. GENERAL: The patient is awake, alert, oriented, pleasant, cooperative. HEART: Regular rate and rhythm. LUNGS: Clear bilaterally. ABDOMEN: Soft, nontender, and nondistended. EXTREMITIES: Warm and dry. DISPOSITION: The patient is discharged to home. ACTIVITY: Her activity level is as tolerated. DIET: She will remain on a diabetic diet. MEDICATIONS: She will be on; 1. Norvasc 10 mg daily. 2. Atorvastatin 80 mg p.o. at bedtime. 3. Cipro 500 mg p.o. b.i.d. 4. Plavix 75 mg daily. 5. Hydralazine 25 mg t.i.d. 6. Imdur 60 mg daily. 7. Metoprolol 100 mg b.i.d. 8. Flagyl 500 mg b.i.d. 9. Aspirin 81 mg daily. 10. Levemir FlexPen 60 units subcu daily. 11. Lisinopril 40 mg daily. 12. Sertraline 25 mg at bedtime. She will discontinue amlodipine and atorvastatin 20 mg. FOLLOWUP: She is to follow up with Dr. Matute, Dr. Bennett, and her PCP. She can return to emergency department should she have any problems prior to that time. Job ID: [id number]
== END 2018-05-15 15:57 | disposition home or self-care (01) | DRG 853 ==
LOC: ERS 04:13 → ERHOLD 05:22 → CCU 08:22 → 2NO 05-07 18:21
PROVIDERS: ADMIT Internal Medicine; ATTEND Internal Medicine
PROC: 02713EZ Dilation of Coronary Artery, Two Arteries with Two Intraluminal Devices, Percutaneous Approach (ICD-10-PCS; principal; 2018-05-06)
PROC: 4A023N7 Measurement of Cardiac Sampling and Pressure, Left Heart, Percutaneous Approach (ICD-10-PCS; 2018-05-06)
PROC: B2111ZZ Fluoroscopy of Multiple Coronary Arteries using Low Osmolar Contrast (ICD-10-PCS; 2018-05-06)
PROC: B2151ZZ Fluoroscopy of Left Heart using Low Osmolar Contrast (ICD-10-PCS; 2018-05-06)
DX: A41.9 Sepsis, unspecified organism (principal); I21.4 Non-ST elevation (NSTEMI) myocardial infarction; J96.01 Acute respiratory failure with hypoxia; N17.9 Acute kidney failure, unspecified; Z68.41 Body mass index [BMI] 40.0-44.9, adult; K52.9 Noninfective gastroenteritis and colitis, unspecified; R65.20 Severe sepsis without septic shock; I10 Essential (primary) hypertension; G43.909 Migraine, unspecified, not intractable, without status migrainosus; I25.10 Atherosclerotic heart disease of native coronary artery without angina pectoris; E11.9 Type 2 diabetes mellitus without complications; N14.1 Nephropathy induced by other drugs, medicaments and biological substances; T50.8X5A Adverse effect of diagnostic agents, initial encounter; E78.00 Pure hypercholesterolemia, unspecified; E66.9 Obesity, unspecified; F41.8 Other specified anxiety disorders; Z91.14 Patient's other noncompliance with medication regimen; Z86.73 Personal history of transient ischemic attack (TIA), and cerebral infarction without residual deficits; Z95.5 Presence of coronary angioplasty implant and graft; Z79.4 Long term (current) use of insulin
CPT/HCPCS: 36415; 36416; 71045; 71275; 80048; 80053; 80061; 80202; 81003; 81015; 82553; 83630; 83735; 83880; 84484; 85025; 85347; 85379; 87040; 87086; 87149; 87324; 87449; 87633; 90471; 90670; 92928; 93005; 93010; 93458; 93798; 94760; 96361; 96365; 96372; 96375; 96376; 99152; 99153; C1769; C1876; C1887; G0009; J0583; J1644; J1650; J1815; J1940; J2001; J2250; J2270; J2405; J2543; J2550; J3010; J3370; J3475; J7050

== ENCOUNTER 2018-05-28 23:26 | Emergency (ER) | payer SELFPAY ==
[2018-05-29 00:27] LABS: #Basophils 0.1 thou/uL (0.0-0.2); #Eosinphils 0.4 thou/uL (0.0-0.7); #Lymphocytes 2.3 thou/uL (1.20-3.40); #Monocytes 0.6 thou/uL (0.11-0.59); %Basophils 0.6 % (0.0-1.0); %Eosinophils 3.9 % (0.0-10.0); %Lymphocytes 22.3 % (21.0-51.0); %Monocytes 5.3 % (0.0-10.0); %Neutrophils 67.9 % (42.0-75.0); Hemoglobin 10.6 g/dL (12.0-16.0); Mean Corpuscular HGB CONC 32.4 g/dL (32.0-36.0); Mean Corpuscular Hemoglobin 23.4 pg (27.0-31.0); Mean Corpuscular Volume 72.2 fL (78.0-98.0); Platelet Count 298 thou/uL (130-400); RBC Distribution Width 13.1 % (11.5-14.5); Red Blood Cell (RBC) Count 4.54 mill/uL (4.20-5.40); White Blood Cell (WBC) Count 10.3 thou/uL (4.8-10.8)
[2018-05-29 00:47] LABS: ALT (SGPT) 10 U/L (8-55); AST (SGOT) 10 U/L (5-34); Albumin 3.2 g/dL (3.5-5.0); Alkaline Phosphatase 118 U/L (40-150); Anion Gap 14 mmol/L (10-20); BUN (Urea Nitrogen) 23 mg/dL (7.0-18.7); Bilirubin, Total 0.6 mg/dL (0.2-1.2); CK (CPK) 18 U/L (29-168); Calc. Creatinine Clearance 0 mL/min (70-130); Calcium 9.3 mg/dL (7.8-10.44); Carbon Dioxide 24 mmol/L (22-29); Chloride 94 mmol/L (98-107); Estimated GFR-MDRD 38; Globulin 3.9 g/dL (2.4-3.5); Glucose 531 mg/dL (70-105); Lipase 92 U/L (8-78); Protein, Total 7.1 g/dL (6.0-8.3); Sodium 128 mmol/L (136-145)
[2018-05-29 00:54] LABS: Bilirubin Negative (Negative); Blood, Urine Negative (Negative); Clarity CLEAR (Clear); Glucose, Urine (Dipstick) >=1000 mg/dL (Negative); Leukocyte Negative (Negative); Nitrite Negative (Negative); Protein, Urine (Dipstick) 100 mg/dL (Neg-Trace); Specific Gravity, Urine 1.018 (1.002-1.036); Urobilinogen 0.2 mg/dL (0.2-1.0); pH, Urine 6.5 (5.0-9.0)
[2018-05-29 00:55] LABS: Bacteria/HPF None Seen HPF (None Seen); Hyaline Casts/LPF 0-3 HYALINE CAST LPF (0-3 Hyaline); Pathc Cast-AUWi Flag 0.14 (0-2.49); WBC/HPF 0-3 HPF (0-3); Yeast-AUWi Flag 22.5 (0-25.0)
[2018-05-29] MEDS ORDERED: Insulin Regular 300 UNITS/3 ML VIAL ONE (01:48)
[2018-05-29] MEDS ORDERED: diphenhydrAMINE 50 MG/ML VIAL ONE (01:48)
[2018-05-29] MEDS ORDERED: Metoclopramide HCl 10 MG/2 ML VIAL ONE (01:48)
--- NOTE | 2018-05-29 08:38 | RAD ---
CHEST ONE VIEW: History: Chest pain. Comparison: 05-06-18 FINDINGS: Lungs are hypoinflated with vascular crowding. Small layering left pleural effusion. No pneumothorax. IMPRESSION: 1. Lung hypoinflation with vascular crowding. 2. Small left effusion. POS: [facility]
--- NOTE | 2018-05-29 09:27 | CT ---
PRELIMINARY REPORT/[facility]/EMERGENTY AFTER-HOURS PROCEDURE CT Abdomen and Pelvis With Contrast EXAM DATE/TIME: 05/29/2018 12:59 AM CLINICAL HISTORY: 47 years old, female; Pain; Abdominal pain; Generalized; Patient HX: 47f presents for the evaluation of abdominal pain that she has had for 1 week. Patient reports llq pain with intermittent diarrhea. P atient reports pain did subside midweek but has returned. Denies fever and chills TECHNIQUE: Axial computed tomography images of the abdomen and pelvis with intravenous contrast. Coronal reforma tted images were created and reviewed. COMPARISON: No relevant prior studies available. FINDINGS: Lower thorax: There is subpleural atelectasis of the dependent portions of the lungs. ABDOMEN: Liver: There are no focal liver lesions identified. Gallbladder and bile ducts: The gallbladder is normal. There is no evidence of biliary ductal dilatio n. Pancreas: The pancreas appears normal. No ductal dilatation. Spleen: The spleen is normal. Adrenals: The adrenal glands are normal. Kidneys and ureters: Normal. No hydronephrosis. Stomach and bowel: The stomach is normal. The duodenum is unremarkable. There is no evidence of intes tinal perforation or obstruction. Appendix: A normal appendix is identified. PELVIS: Bladder: The bladder is normal. Reproductive: Unremarkable as visualized. ABDOMEN and PELVIS: Intraperitoneal space: Normal. No free air. No significant fluid collection. Bones/joints: No acute fracture. No dislocation. Soft tissues: Unremarkable. Vasculature: Normal. No abdominal aortic aneurysm. Lymph nodes: There are subcentimeter RIGHT periureteral lymph nodes which are nonspecific and do not reach pathological size criteria. IMPRESSION: No acute abdominal pelvic pathology. Thank you for allowing us to participate in the care of your patient. Dictated and Authenticated by: Gabriel Grant MD 05/29/2018 1:28 AM Central Time ([place] & [place]) FINAL REPORT CT ABDOMEN AND PELVIS WITH CONTRAST: Date: 05/28/18 HISTORY: Abdominal pain. COMPARISON: None. FINDINGS: Mild atelectatic changes in lung bases. 3.0 mm nodule within the lingula. No pericardial effusion. Th ere is very mild asymmetric right-sided perinephric stranding. IMPRESSION: Findings and impression are concordant with the preliminary report by [facility], although there is felt to be some mild asymmetric right-sided perinephric stranding which can be seen with pyelonephritis in c orrect clinical setting. Recommend correlation with urinalysis. POS: [facility]
--- NOTE | 2018-06-01 16:58 | EKG ---
Test Reason : Blood Pressure : / mmHG Vent. Rate : 082 BPM Atrial Rate : 082 BPM P-R Int : 210 ms QRS Dur : 096 ms QT Int : 384 ms P-R-T Axes : 006 065 098 degrees QTc Int : 448 ms Sinus rhythm with 1st degree A-V block Otherwise normal ECG Confirmed by LATRELL CARDENAS ([id number]), commissioning editor SHEEBA RODRIGUEZ ([id number]) on 06/01/2018 4:58:03 PM Referred By: Confirmed By:LATRELL CARDENAS
== END 2018-05-29 03:50 | disposition home or self-care (01) ==
LOC: ERS 23:26
DX: K52.9 Noninfective gastroenteritis and colitis, unspecified (principal); I25.10 Atherosclerotic heart disease of native coronary artery without angina pectoris; E11.9 Type 2 diabetes mellitus without complications; E78.5 Hyperlipidemia, unspecified; I10 Essential (primary) hypertension; G43.909 Migraine, unspecified, not intractable, without status migrainosus; F32.9 Major depressive disorder, single episode, unspecified; Z79.899 Other long term (current) drug therapy; Z79.4 Long term (current) use of insulin
CPT/HCPCS: 36415; 36416; 71045; 74177; 80053; 81003; 81015; 82550; 83690; 84484; 85025; 85379; 93005; 96365; 96375; J1200; J1815; J2765

== ENCOUNTER 2018-08-28 08:36 | Day surgery (SDC) | payer BC ==
[2018-08-27 15:42] VITALS: BMI 40.7
--- NOTE | 2018-08-28 10:40 | OP ---
DATE OF PROCEDURE: 08/28/2018 PREOPERATIVE DIAGNOSIS: Epigastric and chest pain. DESCRIPTION OF PROCEDURE: After informed consent was obtained, the patient was placed in the left lateral decubitus position. Anesthesia was administered per the Anesthesia Department. Forward-viewing endoscope was inserted into the esophagus under direct visualization with ease and passed to the second portion of the duodenum with ease. Second portion of the duodenum and duodenal bulb were normal. Biopsies were taken randomly from the second portion of the duodenum because of the patient's anemia. The pylorus, antrum, body, fundus, and cardia were normal. The esophagus was normal throughout. ASSESSMENT: Normal esophagogastroduodenoscopy. RECOMMENDATIONS: 1. Await histopathology. 2. Increase Protonix to twice daily. 3. Begin iron replacement. Job ID: [id number]
[2018-08-28] MEDS ORDERED: PROPOFOL 200 MG/20 ML VIAL ONE (16:27)
== END 2018-08-28 11:20 | disposition home or self-care (01) ==
LOC: SDC 08:36
PROVIDERS: ATTEND Internal Medicine Gastroenterology
PROC: 0DJ08ZZ Inspection of Upper Intestinal Tract, Via Natural or Artificial Opening Endoscopic (ICD-10-PCS; principal; 2018-08-28)
DX: R10.13 Epigastric pain (principal); R07.9 Chest pain, unspecified; Z79.4 Long term (current) use of insulin; Z79.899 Other long term (current) drug therapy
CPT/HCPCS: 36416; 88305; J2704

== ENCOUNTER 2018-11-08 07:02 | Inpatient (IN) | payer BC ==
[2018-11-08] MEDS ORDERED: Aspirin Chewable 81 MG TAB ONE (07:33)
[2018-11-08] MEDS ORDERED: Nitroglycerin 2% Ointment 1 INCH/1 GM Packet ONE (07:34)
[2018-11-08 07:43] LABS: #Basophils 0.1 thou/uL (0.0-0.2); #Eosinphils 0.3 thou/uL (0.0-0.7); #Lymphocytes 1.9 thou/uL (1.20-3.40); #Monocytes 0.2 thou/uL (0.11-0.59); #Neutrophils 6.7 thou/uL (1.40-6.50); %Basophils 0.8 % (0.0-1.0); %Eosinophils 2.9 % (0.0-10.0); %Lymphocytes 20.9 % (21.0-51.0); %Monocytes 2.6 % (0.0-10.0); %Neutrophils 72.8 % (42.0-75.0); Hemoglobin 12.6 g/dL (12.0-16.0); Mean Corpuscular HGB CONC 32.7 g/dL (32.0-36.0); Mean Corpuscular Hemoglobin 23.6 pg (27.0-31.0); Mean Corpuscular Volume 72.2 fL (78.0-98.0); Mean Platelet Volume 8.7 fL (7.4-10.4); Platelet Count 278 thou/uL (130-400); RBC Distribution Width 14.8 % (11.5-14.5); Red Blood Cell (RBC) Count 5.32 mill/uL (4.20-5.40); White Blood Cell (WBC) Count 9.1 thou/uL (4.8-10.8)
--- NOTE | 2018-11-08 07:59 | RAD ---
SINGLE VIEW OF THE CHEST: COMPARISON: 05/29/2018. HISTORY: Shortness of breath and chest pain. FINDINGS: A single view of the chest shows a normal-size cardiomediastinal silhouette. Increased interstitial lung markings are present. There may be superimposed airspace opacities projecting over the right lo wer lobe. IMPRESSION: Possible right lower lobe infiltrate. POS: [facility]
[2018-11-08 08:00] LABS: Anion Gap 14 mmol/L (10-20); BUN (Urea Nitrogen) 13 mg/dL (7.0-18.7); Calc. Creatinine Clearance 0 mL/min (70-130); Carbon Dioxide 23 mmol/L (22-29); Chloride 105 mmol/L (98-107); Estimated GFR-MDRD 74; MDiff Complete? YES; Microcytosis SLIGHT = 6-15 cells (100X) (0-5/hpf); Platelet Morphology Comment Appears Adequate; Sodium 138 mmol/L (136-145)
[2018-11-08 08:01] LABS: ALT (SGPT) 15 U/L (8-55); AST (SGOT) 18 U/L (5-34); Albumin 3.2 g/dL (3.5-5.0); Alkaline Phosphatase 99 U/L (40-150); Bilirubin, Total 0.3 mg/dL (0.2-1.2); CK (CPK) 63 U/L (29-168); Calcium 9.3 mg/dL (7.8-10.44); Globulin 3.8 g/dL (2.4-3.5); Glucose 166 mg/dL (70-105); Lipase 39 U/L (8-78)
[2018-11-08] MEDS ORDERED: Metoprolol Tartrate 5 MG/5 ML VIAL ONE (08:26)
[2018-11-08 08:32] LABS: CKMB 0.9 ng/mL (0-6.6)
--- NOTE | 2018-11-08 09:08 | CT ---
CTA Angio Chest W WO Con History: [Chest pain. Shortness of breath.] Comparison: Radiograph same day. CT angiogram chest May 2018 Findings: CT angiogram of the chest performed after the intravenous administration of contrast. 3-D r endering provided. There is abnormal interstitial and alveolar pulmonary edema. There is interlobular septal thickening. There is fullness of the bronchial arriola circumferential wall thickening. Centrilobular opacities are present probably in the lung bases suggesting metastatic pulmonary edema. There are small bilateral pleural effusions. No pericardial effusion. Limited abdomen evaluation is u nremarkable. Abnormal right paratracheal lymph nodes are enlarged to the comparison examination be congestive in nature, largest axial image 24 measures 9 mm in short axis. There is no proximal segmental pulmonary arterial filling defect. No acute osseous abnormality. Impression: No pulmonary embolism. Moderate pulmonary edema and small effusions.
[2018-11-08] MEDS ORDERED: Acetaminophen 500 MG TAB ONE (09:51)
[2018-11-08] MEDS ORDERED: Enoxaparin Sodium 100 MG/ML SYRINGE ONE (10:09)
[2018-11-08] MEDS ORDERED: Enoxaparin Sodium 30 MG/0.3 ML SYRINGE ONE (10:09)
[2018-11-08 11:40] LABS: Troponin I 0.913 ng/mL (< 0.028)
[2018-11-08 14:45] LABS: Critical Call Chem Troponin I RESULT DECREASING; Troponin I 0.829 ng/mL (< 0.028)
[2018-11-08] MEDS ORDERED: Ondansetron PF 4 MG/2 ML Vial IVP PRN (15:30)
[2018-11-08] MEDS ORDERED: Calcium Carbonate 500 MG ChewTAB PO PRN (15:30)
[2018-11-08] MEDS ORDERED: Ondansetron ODT 4 MG TAB PO PRN (15:30)
[2018-11-08] MEDS ORDERED: Nitroglycerin 0.4 MG TAB (25 Tab Bottle) PO PRN (15:33)
[2018-11-08] MEDS ORDERED: Dextrose 50% Abboject 50 ML SYRINGE SLOW IVP PRN (15:34)
[2018-11-08] MEDS ORDERED: Insulin Regular 300 UNITS/3 ML VIAL SC PRN (15:34)
[2018-11-08] MEDS ORDERED: Dextrose 5% in Water 1,000 ML IV PRN (15:34)
[2018-11-08] MEDS ORDERED: Nitroglycerin 2% Ointment 1 INCH/1 GM Packet TOP SCH (15:45)
--- NOTE | 2018-11-08 15:58 | HP ---
PRIMARY CARE: Mai Vazquez DO CHIEF COMPLAINT: Chest discomfort. HISTORY OF PRESENT ILLNESS: The patient is a 47-year-old female with coronary artery disease, status post stent placement; diabetes mellitus type 2; hypertension; and obesity, who presented to the emergency room earlier today with chest discomfort. The chest discomfort started earlier today while she was at work. It was substernal, radiating to her back and her left shoulder. It was 8/10 without any aggravating or relieving factor. It was pressure-like, associated with diaphoresis and nausea. She had mild shortness of breath as well. She denies any orthopnea, paroxysmal nocturnal dyspnea, leg swelling, or syncope. In the emergency room, her workup was consistent with chj-MB-phlzghvjy MS. She received 1 mg/kg Lovenox at 10:15 along with Tylenol, aspirin, and nitroglycerin patch were placed. PAST MEDICAL HISTORY: 1. Coronary artery disease, status post stent placement. 2. History of man-HA-dgvrcwjso MS in May of 2018. 3. Diabetes mellitus type 2. 4. Hypertension. 5. Hyperlipidemia. 6. Migraine headaches. 7. Obesity. PAST SURGICAL HISTORY: 1. Coronary stent placement. 2. Cardiac catheterization. 3. Removal of the tumor on the right side of the neck. ALLERGIES: NO KNOWN DRUG ALLERGIES. CURRENT HOME MEDICATIONS: The patient does not remember any of her home medications. She states that she takes Levemir 60 units daily along with 15 units of short-acting insulin 3 times a day. She also takes aspirin on a daily basis. She is not sure whether she takes clopidogrel. She is unable to recall any other medications. SOCIAL HISTORY: The patient currently lives at home. No smoking, alcohol, or drug use. FAMILY HISTORY: Negative for premature coronary artery disease. REVIEW OF SYSTEMS: All other review of systems was reviewed and were found negative. PHYSICAL EXAMINATION: VITAL SIGNS: Temperature, the patient is afebrile at 98; respirations of 18; pulse rate of 98; blood pressure 173/97; O2 saturation 98% on room air. GENERAL: A 47-year-old female, in no apparent distress. Chest discomfort has resolved. HEENT: Head, atraumatic and normocephalic. Sclerae anicteric. Moist mucous membranes. No oral lesion. NECK: Supple. No JVD appreciated. No carotid bruit. LUNGS: Clear to auscultation bilaterally. No wheezing, rales, or rhonchi. HEART: S1, S2 present. Regular rate and rhythm. No significant rubs or gallops appreciated. ABDOMEN: Soft, obese, bowel sounds present. No rebound or guarding. EXTREMITIES: Trace edema in bilateral lower extremities. SKIN: Warm and dry. LYMPH NODES: No palpable lymph nodes in the neck. PERIPHERAL VASCULAR: Radial pulses palpable bilaterally. MUSCULOSKELETAL: No joint swelling tenderness. SKIN: Warm and dry. LABORATORY FINDINGS: Troponin 0.908 with normal CK-MB. BNP 356. BUN 13 and creatinine 0.82. Electrolytes in normal range. WBC 9.1 with hemoglobin 12.6. EKG by my review showed nonspecific ST-T wave changes in the anterior leads with first-degree AV block. IMAGING STUDIES: Chest x-ray by my review was negative for infiltrate. CT angiogram of the chest was negative for pulmonary embolism or infiltrate. There were findings consistent with pulmonary vascular congestion. IMPRESSION: 1. Dol-HU-luvlpohby myocardial infarction. 2. Coronary artery disease, status post stent placement in the past. 3. Diabetes mellitus type 2. 4. Hypertension. 5. History of migraine headaches. 6. Morbid obesity. 7. Anxiety. 8. Depression, mild, stable. 9. Hyperlipidemia. PLAN: The patient will be monitored on the telemetry unit. She received a dose of Lovenox in the emergency room. We will keep her n.p.o. Cardiology will be consulted. We will start her on insulin sliding scale. Further Lovenox dosing per Cardiology. Resume selected home medications from the last discharge summary (May 2018). The patient was advised to provide accurate list of medications. The patient will require 2 to 3 days for stabilization. Job ID: [id number]
[2018-11-08 16:44] VITALS: BMI 43.9
--- NOTE | 2018-11-08 20:41 | CON ---
DATE OF CONSULTATION: 11/08/2018 INDICATION FOR CONSULTATION: A 47-year-old female with shortness of breath and chest discomfort with history of coronary artery disease, who presents again having chest heaviness. Cardiac enzymes are indeterminate, but most likely indicate a non ST-segment elevation myocardial infarction type 1. We will continue to trend the enzymes. She may develop into a type 1 qvg-ZE-uexbzjb elevation MA. HISTORY OF PRESENT ILLNESS: This is a very pleasant 47-year-old female, who actually has a history of coronary artery disease, had a cardiac catheterization in [address] Matute and underwent angioplasty and stent placement to the left anterior descending artery with a 2.5 x 16 mm non-drug coated stent. She also had 2 stents placed in diagonal branch, 2.25 x 8 mm stents x2. At that time, she had an 80% left anterior descending artery stenosis, which was reduced to 0%. The diagonal branch also was 80%, decreased down to 0%. She had a diagonal branch, which was 100% occluded. The first obtuse marginal branch was 30% and 50% severe lesions. I am uncertain about the right coronary, it was not mentioned. We will need to review the films, but she has not been seen in the office. She was scheduled to see Dr. Matute in next 1 to 2 weeks. She had no previous stents, but she did say that she had stent in 2014, but by cardiac catheterization, no stent was found in 2018. This apparently had been done at an outside facility in [place], [place]. At this time, she complains of pain, which sometimes is heavy in her chest. She said it starts sometimes in her back and radiates to the chest area, starts in her shoulder sometimes, and describes as being heavy and shortness of breath. She also noticed occasional tachycardia. She says she drinks quite a bit of fluid during the day and does not complain of any edema. In the past, she has been somewhat noncompliant with her medications, but at this time, she does state that she has been taking her medications. Her EKG previously did show a very small R wave in the anterior leads. However, EKG today shows Q waves in V1 through V3 compatible with an anteroseptal myocardial infarction. She did not have these EKG changes in May after she underwent the angioplasty and stent placement. It is possible that she has occluded the stent since she is a diabetic. She may have not had any significant chest pain until just recently. She also has a history of hypertension as well as hypercholesterolemia. We will continue to monitor her at this time. She is relatively stable. She is having no significant discomfort as we speak. PAST MEDICAL HISTORY: Significant for anxiety, depression, migraines, coronary artery disease, angioplasty, stent placed as noted above. She also had some right neck surgery, some type of tumor was removed. SOCIAL HISTORY: There is a history of alcohol or tobacco abuse. FAMILY HISTORY: Both parents had myocardial infarction. ALLERGIES: NONE. MEDICATIONS: Include: 1. Hydralazine. 2. Flagyl. 3. Zoloft. 4. Pantoprazole. 5. Lisinopril. 6. Levemir. 7. Imdur. 8. Humalog insulin. 9. Lasix. 10. Lipitor. 11. Aspirin 81 mg. 12. Norvasc. REVIEW OF SYSTEMS: She complains of blurred vision, shortness of breath, nausea, and vomiting. She has had frequent nausea and she complains of leg cramping, which actually gets better. She actually gets up and takes some pickle juice, but she still continues to have problems with cramping. The diabetes has been up and down. Otherwise, she has no complaints on review of systems. PHYSICAL EXAMINATION: GENERAL: Reveals a well-developed, well-nourished female, in no acute distress. VITAL SIGNS: Blood pressure decreased down to 156/101 with a heart rate of 90 beats per minute. Blood pressure is 156/81, earlier was 175/104. HEENT: Shows head to be normocephalic and atraumatic. NECK: Carotid pulses are present without any bruits. CHEST: Clear to auscultation. CARDIOVASCULAR: Reveals a regular rate and rhythm with normal S1, S2. I cannot hear an S3 nor an S4 nor any significant murmurs, heaves, thrills, bruits, or rubs. ABDOMEN: Shows obesity. Positive bowel sounds. No organomegaly or masses are noted. Femoral pulses are present. EXTREMITIES: No clubbing, cyanosis, or edema. She may have mild edema of the right lower extremity, but otherwise no edema. Pedal pulses are present. NEUROLOGIC: She appears to be fully intact with normal strength and normal tone. SKIN: Warm and dry. LABORATORY DATA: EKG shows normal sinus rhythm with Q waves in V1 through V3. Her other laboratory data show a BUN of 13 with a creatinine 0.82. Hemoglobin is 12, hematocrit 38.4, WBC is 9.1. Troponin I was 0.908, increased up to 0.919. IMPRESSION: 1. Mwi-AF-xhjgjui elevation myocardial infarction, it is either type 1 or type 2. We will determine if further enzymes become positive. She will need to undergo further evaluation. We will order an echocardiogram for evaluation of left ventricular systolic function. We will also consider undergoing a repeat stress test despite having a negative stress test in the past after she has not had a stress test after she was revascularized with the stents. It is possible that she has suffered an occlusion of the stents and has suffered an anterior myocardial infarction since there were no R waves in V1 through V3. She may need to undergo a repeat cardiac catheterization despite having small vessels. 2. Diabetes, which will be dealt with by the primary care service. 3. History of hypercholesterolemia. This also could be dealt with by the primary care service, but we will continue her medications. She would need to continue on her present medications certainly with the lisinopril as well as Lipitor. I will obtain an echocardiogram for evaluation of left ventricular systolic function. We will contemplate whether or not, she needs to undergo stress test and will await for another set of enzymes. Otherwise, she may need to undergo repeat cardiac catheterization. 4. Hypertension. We will try to readjust her medications as needed. Job ID: [id number]
[2018-11-08] MEDS: Senokot S 8.6-50 MG TAB PO SCH (21:03)
[2018-11-08] MEDS: Atorvastatin Calcium 40 MG TAB PO SCH (21:04)
[2018-11-08] MEDS: Famotidine 20 MG TAB PO SCH (21:04)
[2018-11-08] MEDS: Nitroglycerin 2% Ointment 1 INCH/1 GM Packet TOP SCH (21:04)
[2018-11-08] MEDS: Acetaminophen 325 MG TAB PO PRN (21:10)
[2018-11-09] MEDS: Nitroglycerin 2% Ointment 1 INCH/1 GM Packet TOP SCH ×3 (05:41→21:38)
[2018-11-09 06:17] LABS: #Eosinphils 0.2 thou/uL (0.0-0.7); #Lymphocytes 1.8 thou/uL (1.20-3.40); #Monocytes 0.4 thou/uL (0.11-0.59); #Neutrophils 6.2 thou/uL (1.40-6.50); %Basophils 0.4 % (0.0-1.0); %Eosinophils 2.3 % (0.0-10.0); %Lymphocytes 20.8 % (21.0-51.0); %Monocytes 4.3 % (0.0-10.0); %Neutrophils 72.2 % (42.0-75.0); Hemoglobin 11.5 g/dL (12.0-16.0); Mean Corpuscular HGB CONC 32.5 g/dL (32.0-36.0); Mean Corpuscular Hemoglobin 23.7 pg (27.0-31.0); Mean Corpuscular Volume 72.8 fL (78.0-98.0); Mean Platelet Volume 9.3 fL (7.4-10.4); Platelet Count 245 thou/uL (130-400); RBC Distribution Width 14.9 % (11.5-14.5); Red Blood Cell (RBC) Count 4.87 mill/uL (4.20-5.40); White Blood Cell (WBC) Count 8.6 thou/uL (4.8-10.8)
[2018-11-09 06:45] LABS: Anion Gap 12 mmol/L (10-20); BUN (Urea Nitrogen) 10 mg/dL (7.0-18.7); Calc. Creatinine Clearance 177 mL/min (70-130); Calcium 9.2 mg/dL (7.8-10.44); Carbon Dioxide 20 mmol/L (22-29); Chloride 108 mmol/L (98-107); Estimated GFR-MDRD 85; Glucose 117 mg/dL (70-105); Potassium 4.2 mmol/L (3.5-5.1); Sodium 136 mmol/L (136-145)
[2018-11-09] MEDS: Insulin Glargine 40 UNITS in Pre-Filled Syringe SC SCH (08:48)
[2018-11-09] MEDS: Senokot S 8.6-50 MG TAB PO SCH ×2 (08:49→21:37)
[2018-11-09] MEDS: Amlodipine 10 MG TAB PO SCH (08:49)
[2018-11-09] MEDS: Aspirin 325 mg Enteric Coated Tablet PO SCH (08:49)
[2018-11-09] MEDS: Lisinopril 20 MG TAB PO SCH (08:49)
[2018-11-09] MEDS: Famotidine 20 MG TAB PO SCH ×2 (08:49→21:38)
[2018-11-09] MEDS: Enoxaparin Sodium 40 MG/0.4 ML SYRINGE SC SCH (08:49)
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
[2018-11-09] MEDS: Insulin Regular 300 UNITS/3 ML VIAL SC PRN (12:03)
[2018-11-09] MEDS: hydrALAZINE 25 MG TAB PO SCH ×2 (15:07→21:38)
--- NOTE | 2018-11-09 15:40 | PDOC.CTH ---
Cardiology Progress Note - Subjective The pt seen and examined. No overnight events. She had another episode of sharp pain to Lt upper chest to Lt shoulder. The symptoms worsened with palpitation to the site. - Objective Vital Signs Temp Pulse Resp BP BP Pulse Ox 11/09/18 15:07 99 11/09/18 15:05 99.1 F 99 16 146/79 H 94 L 11/09/18 11:52 99.5 F 94 16 136/65 93 L 11/09/18 08:49 94 11/09/18 07:49 98.4 F 94 16 168/79 H 94 L 11/09/18 04:00 98.3 F 91 20 145/78 H 94 L Weight 262 lb 11.2 oz 11/08/18 11/09/18 11/10/18 06:59 06:59 06:59 Intake Total 720 240 Output Total 2800 Balance -2080 240 - Physical Examination General/Neuro: alert & oriented x3 Neck: no JVD present Lungs: CTA Heart: RRR Abdomen: soft Extremities: other: (No edema) - Telemetry Telemetry Rhythm: SR - Labs Result Diagrams: 11/09/18 05:47 11/09/18 05:47 Troponin/CKMB CK-MB (CK-2) 0.9 ng/mL (0-6.6) 11/08/18 07:25 Troponin I 0.829 ng/mL (< 0.028) H* 11/08/18 14:03 - Assessment/Plan 1. NSTEMI - Trop is trending down. Will order Stress test. 2. CAD with hx of [facility] with 30-50% stenosis in OM1 and Stent placement in LAD and Diag in 2018 - on Plavix, ASA, Lisinopril and Lipitor. Will start Metoprolol 12.5mg BID from today 3. HTN - will start Metoprolol 12.5mg BID from today 4. DM type 2 - managed by PCP 5. HLD - on Lipitor 80mg qd 6. Anxiety and depression - managed by PCP 7. 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 seen and eval. by me. I agree with the A/P by the BUS MATRON. Chest clear. RRR. The EKG changes are new since the stent placements to the LAD,Diag. The stents may have occluded. Await echo and nuclear results. She may need a repeat cath. Review of Systems - Review of Systems Constitutional: reports: no symptoms reported EENTM: reports: no symptoms reported Respiratory: reports: no symptoms reported Cardiac (ROS): reports: see HPI ABD/GI: reports: no symptoms reported : reports: no symptoms reported
[2018-11-09] MEDS: Acetaminophen 325 MG TAB PO PRN (19:57)
[2018-11-09] MEDS ORDERED: Metoprolol Tartrate 25 MG TAB PO SCH (21:00)
[2018-11-09] MEDS: Atorvastatin Calcium 40 MG TAB PO SCH (21:37)
[2018-11-10 04:59] LABS: #Eosinphils 0.3 thou/uL (0.0-0.7); #Monocytes 0.5 thou/uL (0.11-0.59); #Neutrophils 4.9 thou/uL (1.40-6.50); %Basophils 0.6 % (0.0-1.0); %Eosinophils 3.4 % (0.0-10.0); %Lymphocytes 25.8 % (21.0-51.0); %Monocytes 6.4 % (0.0-10.0); %Neutrophils 63.8 % (42.0-75.0); Mean Corpuscular HGB CONC 32.3 g/dL (32.0-36.0); Mean Corpuscular Hemoglobin 23.6 pg (27.0-31.0); Mean Corpuscular Volume 73.3 fL (78.0-98.0); Mean Platelet Volume 8.5 fL (7.4-10.4); Platelet Count 254 thou/uL (130-400); RBC Distribution Width 14.9 % (11.5-14.5); Red Blood Cell (RBC) Count 4.65 mill/uL (4.20-5.40); White Blood Cell (WBC) Count 7.6 thou/uL (4.8-10.8)
[2018-11-10 05:19] LABS: Anion Gap 12 mmol/L (10-20); BUN (Urea Nitrogen) 10 mg/dL (7.0-18.7); Calc. Creatinine Clearance 166 mL/min (70-130); Calcium 8.7 mg/dL (7.8-10.44); Carbon Dioxide 23 mmol/L (22-29); Chloride 106 mmol/L (98-107); Estimated GFR-MDRD 79; Glucose 255 mg/dL (70-105); Potassium 3.7 mmol/L (3.5-5.1); Sodium 137 mmol/L (136-145)
[2018-11-10] MEDS: Nitroglycerin 2% Ointment 1 INCH/1 GM Packet TOP SCH (05:31)
[2018-11-10] MEDS: Insulin Glargine 40 UNITS in Pre-Filled Syringe SC SCH (10:12)
[2018-11-10] MEDS: Amlodipine 10 MG TAB PO SCH (10:13)
[2018-11-10] MEDS: Lisinopril 20 MG TAB PO SCH (10:15)
[2018-11-10] MEDS: Famotidine 20 MG TAB PO SCH ×2 (10:15→21:42)
[2018-11-10] MEDS: Senokot S 8.6-50 MG TAB PO SCH ×2 (10:15→21:42)
[2018-11-10] MEDS: hydrALAZINE 25 MG TAB PO SCH ×3 (10:15→21:42)
[2018-11-10] MEDS: Aspirin 325 mg Enteric Coated Tablet PO SCH (10:15)
[2018-11-10] MEDS: Enoxaparin Sodium 40 MG/0.4 ML SYRINGE SC SCH (10:15)
[2018-11-10] MEDS: Insulin Regular 300 UNITS/3 ML VIAL SC PRN ×2 (10:41→16:42)
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
[2018-11-10] MEDS ORDERED: Furosemide 40 MG/4 ML VIAL SLOW IVP SCH (13:15)
[2018-11-10] MEDS ORDERED: Clopidogrel Bisulfate 75 MG TAB PO SCH (13:15)
--- NOTE | 2018-11-10 13:38 | PDOC.CTH ---
Cardiology Progress Note - Subjective Pt.seen and eval.complained of sharp pain during the stress test. - Objective Vital Signs Temp Pulse Resp BP BP Pulse Ox 11/10/18 11:16 98.1 F 90 17 162/79 H 96 11/10/18 10:13 134/63 11/10/18 07:26 98.5 F 79 18 147/77 H 96 11/10/18 03:51 98.1 F 88 16 168/76 H 94 L Weight 262 lb 4 oz 11/09/18 11/10/18 11/11/18 06:59 06:59 06:59 Intake Total 720 1840 Output Total 2800 3000 Balance -2080 -1160 - Physical Examination General/Neuro: alert & oriented x3 Neck: carotid US brisk, no JVD present Lungs: other: (few basilar rales.) Heart: RRR Abdomen: NT/ND, soft - Labs Result Diagrams: 11/10/18 04:22 11/10/18 04:22 Troponin/CKMB CK-MB (CK-2) 0.9 ng/mL (0-6.6) 11/08/18 07:25 Troponin I 0.829 ng/mL (< 0.028) H* 11/08/18 14:03 - Assessment/Plan 1. NSTEMI - Trop is trending down. New EKG changes. Loss of R-wave in V1-3. Stress test indicartes large anterior scar.She likely occluded the stents. She likely had a silent RI and then developed CHF. 2. CAD with hx of [facility] with 30-50% stenosis in OM1 and Stent placement in LAD and Diag in 2018 - on Plavix, ASA, Lisinopril and Lipitor. Will start coreg. consider changing to Entresto if she can afford it. resume plavix. 3. HTN - start coreg. Continue nitrates,lisinopril. 4. DM type 2 - managed by PCP 5. HLD - on Lipitor 80mg qd 6. Anxiety and depression - managed by PCP 7. 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
[2018-11-10] MEDS: Communication Order-Pharmacy FS SCH (14:16)
[2018-11-10] MEDS: Carvedilol 3.125 MG TAB PO SCH (16:42)
[2018-11-10] MEDS ORDERED: Regadenoson 0.4 MG/5 ML SYRINGE ONE (20:08)
[2018-11-10] MEDS: Atorvastatin Calcium 40 MG TAB PO SCH (21:41)
[2018-11-10] MEDS: Acetaminophen 325 MG TAB PO PRN (21:43)
[2018-11-11] MEDS: Aspirin 325 mg Enteric Coated Tablet PO SCH (05:16)
[2018-11-11] MEDS: Carvedilol 3.125 MG TAB PO SCH ×2 (05:17→17:48)
[2018-11-11] MEDS: Lisinopril 20 MG TAB PO SCH (05:17)
[2018-11-11] MEDS: Clopidogrel Bisulfate 75 MG TAB PO SCH (05:17)
[2018-11-11] MEDS: Famotidine 20 MG TAB PO SCH ×2 (05:17→20:21)
[2018-11-11] MEDS: Amlodipine 10 MG TAB PO SCH (05:17)
[2018-11-11] MEDS: hydrALAZINE 25 MG TAB PO SCH ×4 (05:18→20:19)
[2018-11-11] MEDS: Senokot S 8.6-50 MG TAB PO SCH ×2 (05:19→20:20)
[2018-11-11 05:42] LABS: #Basophils 0.1 thou/uL (0.0-0.2); #Eosinphils 0.4 thou/uL (0.0-0.7); #Monocytes 0.5 thou/uL (0.11-0.59); #Neutrophils 6.1 thou/uL (1.40-6.50); %Basophils 0.6 % (0.0-1.0); %Eosinophils 4.1 % (0.0-10.0); %Lymphocytes 21.9 % (21.0-51.0); %Monocytes 5.4 % (0.0-10.0); Hemoglobin 11.2 g/dL (12.0-16.0); Mean Corpuscular Hemoglobin 23.8 pg (27.0-31.0); Mean Platelet Volume 8.3 fL (7.4-10.4); Platelet Count 258 thou/uL (130-400); RBC Distribution Width 14.9 % (11.5-14.5); Red Blood Cell (RBC) Count 4.71 mill/uL (4.20-5.40); White Blood Cell (WBC) Count 8.9 thou/uL (4.8-10.8)
[2018-11-11 06:05] LABS: Anion Gap 12 mmol/L (10-20); BUN (Urea Nitrogen) 11 mg/dL (7.0-18.7); Calc. Creatinine Clearance 156 mL/min (70-130); Carbon Dioxide 22 mmol/L (22-29); Chloride 105 mmol/L (98-107); Estimated GFR-MDRD 73; Glucose 216 mg/dL (70-105); Potassium 3.7 mmol/L (3.5-5.1); Sodium 135 mmol/L (136-145)
[2018-11-11] MEDS ORDERED: Heparin 10,000 UNITS/1 ML VIAL ONE (07:23)
[2018-11-11] MEDS ORDERED: Fentanyl 100 MCG/2 ML VIAL ONE (08:20)
[2018-11-11] MEDS ORDERED: Midazolam HCl 2 mg/2 ml Vial ONE (08:20)
[2018-11-11] MEDS ORDERED: Bivalirudin 250 MG VIAL ONE (08:43)
[2018-11-11] MEDS ORDERED: Nitroglycerin 100MG/250ML BOT 250 ML ONE (08:53)
[2018-11-11] MEDS ORDERED: Furosemide 40 MG/4 ML VIAL SLOW IVP SCH (09:00)
[2018-11-11] MEDS ORDERED: Clopidogrel Bisulfate 300 MG TAB ONE (09:14)
[2018-11-11] MEDS ORDERED: Morphine 2 MG/ML SYRINGE ONE (09:26)
[2018-11-11] MEDS ORDERED: Sodium Chloride 0.9% 1,000 ML IV SCH (09:30)
[2018-11-11] MEDS ORDERED: Iopamidol 370 76% 100 ML VIAL ONE (10:29)
[2018-11-11] MEDS ORDERED: Iopamidol 370 76% 50 ML VIAL FS ONE (10:29)
[2018-11-11 12:30] LABS: Cardiac Risk 4.7 (Less than 4.5)
[2018-11-11] MEDS: Communication Order-Pharmacy FS SCH (13:26)
[2018-11-11] MEDS: Insulin Glargine 40 UNITS in Pre-Filled Syringe SC SCH (16:16)
[2018-11-11] MEDS ORDERED: hydrALAZINE 20 MG/ML VIAL ONE (17:47)
[2018-11-11] MEDS ORDERED: traMADol HCl 50 MG TAB PO PRN (18:08)
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
[2018-11-11] MEDS ORDERED: Morphine 2 MG/ML SYRINGE SLOW IVP PRN (18:24)
[2018-11-11] MEDS: Atorvastatin Calcium 40 MG TAB PO SCH (20:20)
[2018-11-12] MEDS: Acetaminophen 325 MG TAB PO PRN (03:57)
[2018-11-12 06:23] LABS: #Basophils 0.1 thou/uL (0.0-0.2); #Eosinphils 0.3 thou/uL (0.0-0.7); #Lymphocytes 1.4 thou/uL (1.20-3.40); #Monocytes 0.4 thou/uL (0.11-0.59); #Neutrophils 5.7 thou/uL (1.40-6.50); %Basophils 0.7 % (0.0-1.0); %Eosinophils 3.4 % (0.0-10.0); %Lymphocytes 18.4 % (21.0-51.0); %Monocytes 4.5 % (0.0-10.0); Hemoglobin 11.2 g/dL (12.0-16.0); Mean Corpuscular Hemoglobin 23.4 pg (27.0-31.0); Mean Corpuscular Volume 73.2 fL (78.0-98.0); Mean Platelet Volume 8.9 fL (7.4-10.4); Platelet Count 263 thou/uL (130-400); RBC Distribution Width 14.9 % (11.5-14.5); Red Blood Cell (RBC) Count 4.78 mill/uL (4.20-5.40); White Blood Cell (WBC) Count 7.8 thou/uL (4.8-10.8)
[2018-11-12 06:43] LABS: ALT (SGPT) 34 U/L (8-55); AST (SGOT) 46 U/L (5-34); Albumin 3.1 g/dL (3.5-5.0); Alkaline Phosphatase 109 U/L (40-150); Anion Gap 12 mmol/L (10-20); BUN (Urea Nitrogen) 9 mg/dL (7.0-18.7); Bilirubin, Total 0.4 mg/dL (0.2-1.2); Calc. Creatinine Clearance 153 mL/min (70-130); Carbon Dioxide 23 mmol/L (22-29); Chloride 104 mmol/L (98-107); Estimated GFR-MDRD 77; Globulin 3.4 g/dL (2.4-3.5); Glucose 176 mg/dL (70-105); Potassium 3.8 mmol/L (3.5-5.1); Protein, Total 6.5 g/dL (6.0-8.3); Sodium 135 mmol/L (136-145)
[2018-11-12] MEDS: Carvedilol 3.125 MG TAB PO SCH (08:39)
[2018-11-12] MEDS: Clopidogrel Bisulfate 75 MG TAB PO SCH (08:40)
[2018-11-12] MEDS: Aspirin 325 mg Enteric Coated Tablet PO SCH (08:40)
[2018-11-12] MEDS: Amlodipine 10 MG TAB PO SCH (08:40)
[2018-11-12] MEDS: Lisinopril 20 MG TAB PO SCH (08:40)
[2018-11-12] MEDS: Famotidine 20 MG TAB PO SCH (08:40)
[2018-11-12] MEDS: hydrALAZINE 25 MG TAB PO SCH (08:41)
[2018-11-12] MEDS: Senokot S 8.6-50 MG TAB PO SCH (08:41)
[2018-11-12] MEDS: Insulin Regular 300 UNITS/3 ML VIAL SC PRN ×2 (08:46→11:32)
[2018-11-12] MEDS ORDERED: Insulin Glargine 50 UNITS in Pre-Filled Syringe 1 EACH SC SCH (09:00)
[2018-11-12] MEDS ORDERED: Ezetimibe 10 MG TAB PO SCH (09:00)
[2018-11-12 11:47] VITALS: BP 100/57; TEMP 98.1
[2018-11-12] MEDS ORDERED: Carvedilol 6.25 MG TAB PO SCH (17:00)
--- NOTE | 2018-11-12 20:03 | DIS ---
DATE OF ADMISSION: 11/08/2018 DATE OF DISCHARGE: 11/12/2018 CONSULTANTS: Dr. Oliveira and Dr. Matute of Cardiology. PROCEDURES PERFORMED: Catheterization with placement of 2 drug-eluting stents to the mid LAD. MEDICATIONS: Medications are reconciled at discharge. New medications: 1. Carvedilol 6.25 mg b.i.d. with meals. 2. Zetia 10 mg daily. 3. Furosemide 40 mg daily. 4. Nitroglycerin 0.4 mg sublingual every 5 minutes as needed to a maximum of 3. 5. Potassium chloride 20 mEq daily. Prescriptions provided for Zetia, Plavix, and carvedilol from Dr. Matute for a year supply. Furosemide, potassium, and nitroglycerin for one-month supply by me with further refills from Dr. Matute. Medications to continue are: 1. Amlodipine 10 mg daily. 2. Aspirin 81 mg daily. 3. Lipitor 80 mg at bedtime. 4. Plavix 75 mg daily. 5. Humalog 20 units t.i.d. with meals. 6. Imdur 60 mg daily. 7. Levemir 60 units daily. 8. Lisinopril 40 mg daily. 9. Pantoprazole 40 mg daily. 10. Sumatriptan 50 mg as needed for migraine. 11. Zoloft 100 mg daily. 12. Hydralazine 25 mg t.i.d. Please note - after this note was dictated, nursing staff learned that patient was out of most of her medications at home. The following medications were ordered for a 30 day supply, with further refills from her PCP: amlodipine , protonix, lisinopril, sertraline, lipitor, imdur, hydralazine. FOLLOWUP: 1. Follow up with Dr. Matute, is scheduled for 12/11 at 1:45 p.m. 2. Follow up with the primary care provider, Dr. Vazquez to review this hospitalization, address anemia and any other health concerns. FINAL DIAGNOSES: 1. Coronary artery disease with mid LAD in-stent restenosis, now status post 2 drug-eluting stents. 2. Moderate LV dysfunction with an EF 40% to 45% with an akinetic apex and moderately dilated left atrium. 3. Uti-[id number] myocardial infarction with new Q-waves in V1 through V4. 4. Hypertension. 5. Dyslipidemia. 6. Diabetes mellitus. 7. Anemia, mild and microcytic. SECONDARY DIAGNOSES: 1. Depression and anxiety. 2. Migraines. 3. Obesity. 4. Mild hypoalbuminemia. HISTORY OF PRESENT ILLNESS: Ms. Hayes is a 47-year-old female with the above medical problems, who presented to the emergency room with chest discomfort. It was described as pressure-like, associated with diaphoresis and nausea. Because of her workup was consistent with NSTEMI, she was admitted to the Hospitalist Service. HOSPITAL COURSE: The patient received full-dose Lovenox and was subsequently evaluated by Cardiology. She was kept on aspirin, nitroglycerin paste, statin. For unknown reasons, the Plavix was held at admission, however, resumed on 11/10, and she will continue this for a year. She was started on beta ruth therapy. Her antihypertensive medications have been maximized, and Zetia added for improved lipid control, and the patient has met with a dietitian. Because of the NSTEMI and concern for restenoses of her prior stent, she underwent cardiac catheterization yesterday with Dr. Matute and had placement of 2 new stents. She has tolerated this well. The patient did have signs of heart failure, received IV Lasix and responded well. She will continue oral Lasix at home. The patient overall feeling improved, does meet criteria for discharge to home with medication changes as noted above. PHYSICAL EXAMINATION: VITAL SIGNS: On day of discharge, blood pressure 142/73, temp 98.5, pulse 74, respirations 17, and saturations 95% on room air. GENERAL: Awake, alert, responsive, in no apparent distress. Able to speak in full sentences. LUNGS: Clear to auscultation bilateral. HEART: Normal S1 and S2. Regular rate and rhythm. No audible murmurs. ABDOMEN: Soft with present bowel sounds. EXTREMITIES: Trace pitting edema bilateral. [place] FINDINGS AND TEST RESULTS: CBC; 7.8, 11.2, 35, 263. Chemistry; 135, 3.4, 104, 23, 9, 0.8, 176 with blood sugars that have ranged from 122 to 233. LFTs; T-bilirubin 0.4, AST 46, ALT 34, alkaline phosphatase 109, total protein 6.5, albumin 3.1. Lipids; triglycerides 191, cholesterol 222, LDL 137, HDL 47. Troponins were 0.9, 0.9, and 0.8. BNP 356. Nuclear stress test showed large area of scar in the apex and apical anterior wall with minimal gustavo-infarction ischemia, 43% EF and apical akinesis, mild dyskinesis. Echocardiogram shows an EF of 40% to 45% with an apex akinetic and septum hypokinetic in a restrictive filling pattern. Moderate MR, TR, and TX. CT angiogram showed no acute PE, and moderate pulmonary edema with small effusions. Chest x-ray on 11/08, possible right lower lobe infiltrate. DIET RESTRICTION: Diabetic prudent, heart healthy. ACTIVITY: As noted above. Recommend the patient not return to work until 11/18 , and all activity at her own pacing distance, no lifting more than 15 pounds. CODE STATUS: Full. DISCHARGE DISPOSITION: Home. Reviewed this hospitalization, the events that occurred, the changes in medication with the patient, who demonstrates understanding. We also discussed to seek care precautions. There were no questions or further needs at the end of evaluation. TOTAL TIME COORDINATING DISCHARGE: 45 minutes. Job ID: [id number] [facility]
[2018-11-13] MEDS ORDERED: Furosemide 40 MG TAB PO SCH (07:30)
== END 2018-11-12 13:26 | disposition home or self-care (01) | DRG 246 ==
LOC: ERS 07:02 → ERHOLD 10:48 → 2NO 13:47
PROVIDERS: ADMIT Internal Medicine; ATTEND Internal Medicine
PROC: 027035Z Dilation of Coronary Artery, One Artery with Two Drug-eluting Intraluminal Devices, Percutaneous Approach (ICD-10-PCS; principal; 2018-11-11)
PROC: 4A023N7 Measurement of Cardiac Sampling and Pressure, Left Heart, Percutaneous Approach (ICD-10-PCS; 2018-11-11)
PROC: B2151ZZ Fluoroscopy of Left Heart using Low Osmolar Contrast (ICD-10-PCS; 2018-11-11)
PROC: B2111ZZ Fluoroscopy of Multiple Coronary Arteries using Low Osmolar Contrast (ICD-10-PCS; 2018-11-11)
DX: I21.4 Non-ST elevation (NSTEMI) myocardial infarction (principal); I50.41 Acute combined systolic (congestive) and diastolic (congestive) heart failure; Z68.41 Body mass index [BMI] 40.0-44.9, adult; I25.10 Atherosclerotic heart disease of native coronary artery without angina pectoris; E11.9 Type 2 diabetes mellitus without complications; I11.0 Hypertensive heart disease with heart failure; E66.01 Morbid (severe) obesity due to excess calories; F32.9 Major depressive disorder, single episode, unspecified; F41.9 Anxiety disorder, unspecified; G43.909 Migraine, unspecified, not intractable, without status migrainosus; E78.00 Pure hypercholesterolemia, unspecified; K21.9 Gastro-esophageal reflux disease without esophagitis; D50.9 Iron deficiency anemia, unspecified; Z79.82 Long term (current) use of aspirin; I25.2 Old myocardial infarction; Z79.4 Long term (current) use of insulin; Z79.899 Other long term (current) drug therapy
CPT/HCPCS: 36415; 36416; 71045; 71275; 78452; 80048; 80053; 80061; 82550; 82553; 83690; 83735; 83880; 84484; 85025; 85347; 85379; 92928; 93005; 93010; 93017; 93306; 93458; 93798; 94760; 96372; 99152; 99153; A9500; C1725; C1769; C1874; C1887; C9600; J0360; J0583; J1644; J1650; J1815; J1825; J1940; J2250; J2270; J2785; J3010; Q9967

== ENCOUNTER 2019-01-02 17:12 | Observation (INO) | payer BC ==
[2019-01-02 17:34] LABS: #Basophils 0.1 thou/uL (0.0-0.2); #Eosinphils 0.5 thou/uL (0.0-0.7); #Lymphocytes 2.4 thou/uL (1.20-3.40); #Monocytes 0.5 thou/uL (0.11-0.59); #Neutrophils 7.9 thou/uL (1.40-6.50); %Basophils 0.7 % (0.0-1.0); %Eosinophils 4.1 % (0.0-10.0); %Lymphocytes 20.9 % (21.0-51.0); %Neutrophils 70.3 % (42.0-75.0); Hemoglobin 10.9 g/dL (12.0-16.0); Mean Corpuscular HGB CONC 33.9 g/dL (32.0-36.0); Mean Corpuscular Hemoglobin 24.3 pg (27.0-31.0); Mean Corpuscular Volume 71.7 fL (78.0-98.0); Mean Platelet Volume 8.1 fL (7.4-10.4); Platelet Count 268 thou/uL (130-400); RBC Distribution Width 15.1 % (11.5-14.5); Red Blood Cell (RBC) Count 4.48 mill/uL (4.20-5.40); White Blood Cell (WBC) Count 11.3 thou/uL (4.8-10.8)
[2019-01-02] MEDS ORDERED: Nitroglycerin 0.4 MG TAB 1 EACH ONE (17:34)
[2019-01-02] MEDS ORDERED: Acetaminophen 500 MG TAB ONE (17:34)
[2019-01-02] MEDS ORDERED: Aspirin Chewable 81 MG TAB ONE (17:34)
[2019-01-02 17:58] LABS: ALT (SGPT) 10 U/L (8-55); AST (SGOT) 12 U/L (5-34); Albumin 3.6 g/dL (3.5-5.0); Alkaline Phosphatase 97 U/L (40-150); Anion Gap 12 mmol/L (10-20); BUN (Urea Nitrogen) 24 mg/dL (7.0-18.7); Bilirubin, Total 0.4 mg/dL (0.2-1.2); Calc. Creatinine Clearance 0 mL/min (70-130); Calcium 9.4 mg/dL (7.8-10.44); Carbon Dioxide 21 mmol/L (22-29); Chloride 101 mmol/L (98-107); Estimated GFR-MDRD 57; Globulin 3.5 g/dL (2.4-3.5); Glucose 153 mg/dL (70-105); Potassium 4.1 mmol/L (3.5-5.1); Protein, Total 7.1 g/dL (6.0-8.3); Sodium 130 mmol/L (136-145)
--- NOTE | 2019-01-02 18:08 | RAD ---
PORTABLE AP CHEST X-RAY: 01/02/19 HISTORY: Chest pain and shortness of breath. Recent placement of cardiac stents. COMPARISON: 11/08/18. FINDINGS: This exam is obtained in a shallow depth of inspiration which accentuates the cardiac silhouette and bronchovascular markings. No consolidation or pleural fluid is seen. There is evidence of increased p erihilar interstitial densities with patchy parenchymal changes of the right lung base on the prior e xam which have now resolved. No other interval change. IMPRESSION: No acute cardiopulmonary process. POS: TEODORO
[2019-01-02] MEDS ORDERED: Morphine 4 MG/ML VIAL ONE (18:48)
[2019-01-02] MEDS ORDERED: Senokot S 8.6-50 MG TAB PO PRN (20:06)
[2019-01-02] MEDS ORDERED: HYDROcodone/Acetaminophen 5/325 mg Tablet PO PRN ×2 (20:06)
[2019-01-02] MEDS ORDERED: Acetaminophen 325 MG TAB PO PRN (20:06)
[2019-01-02] MEDS ORDERED: Nitroglycerin 0.4 MG TAB (25 Tab Bottle) SL PRN (20:12)
[2019-01-02] MEDS ORDERED: cloNIDine 0.1 MG TAB PO PRN (20:12)
[2019-01-02 20:55] LABS: Troponin I 0.015 ng/mL (< 0.028)
[2019-01-02] MEDS ORDERED: Dextrose 50% Abboject 50 ML SYRINGE SLOW IVP PRN (21:22)
[2019-01-02] MEDS ORDERED: HumaLOG 300 UNITS/3 ML VIAL SC PRN (21:22)
[2019-01-02] MEDS ORDERED: Dextrose 5% in Water 1,000 ML IV PRN (21:22)
[2019-01-02] MEDS ORDERED: Carvedilol 6.25 MG TAB PO SCH (21:30)
[2019-01-02] MEDS: Famotidine 20 MG TAB PO SCH (22:17)
[2019-01-02 22:39] VITALS: BMI 44.2
[2019-01-03 00:14] LABS: Troponin I 0.033 ng/mL (< 0.028)
--- NOTE | 2019-01-03 00:18 | HP ---
This is SARANYA Pritchard dictating a report for Fide Mustafa MD. PRIMARY CARE PHYSICIAN: Dr. Mai Vazquez. CHIEF COMPLAINT: Chest pain. HISTORY OF PRESENT ILLNESS: This is a 48-year-old female reported to the emergency today for shortness of breath and chest pain that started today. The patient reports that she had right-sided chest pain initially that went to her back, felt short of breath, diaphoretic and reports that she had a headache. Reports that she initially was working outside today, believes she got overheated when she sat in the vehicle to cool off, it is when the pain started. She did report some nausea and sweating. The patient has a history of coronary artery disease and has 4 stents placed. The patient was seen in November of this year for chest discomfort. She had a history of ST elevation MT in May of 2018, had stents placed on this visit in November. She had a positive stress test and was taken to the OR on 11/08/2018. They found 2-vessel coronary artery disease in the LAD and LCX, mildly impaired ventricular function, drug-eluting stent of the mid left anterior descending coronary artery in-stent restenoses. In the recent November, she was seen by Dr. Oliveira and Dr. Matute. They placed 2 drug-eluting stents in the mid LAD. She was given new prescriptions for nitroglycerin which today she reports that she did not have with her. She had an echocardiogram in November as well that showed an EF of 40% to 45%, apex was akinetic, septum hypokinetic, restrictive filling pattern, normal right ventricular size and function, left atrium was mildly dilated, normal right atrium size, mild mitral regurgitation is present, mild tricuspid regurgitation, mild pulmonic regurgitation was present. The patient reports that she has not seen Dr. Matute as an outpatient, has an appointment this coming week. Initial EKG in the emergency room shows normal sinus rhythm, beats per minute 98, conduction normal, T-waves, axis normal. No other findings. Has on the EKG an abnormal septal infarct, does not appear to be any changes from the last EKG. Initial troponin was undetectable. The patient will be admitted to the observation for further management. PAST MEDICAL HISTORY: 1. Coronary artery disease, status post stent placement x4. 2. History of non-ST elevation MT in May 2018. 3. Diabetes mellitus type 2. 4. Hypertension. 5. Hyperlipidemia. 6. Migraine headaches. 7. Obesity. PAST SURGICAL HISTORY: Coronary stent placement, cardiac catheterization, removal of a tumor on the right side of her neck. ALLERGIES: NONE. CURRENT HOME MEDICATIONS: This will need to be reconciled. The patient does not remember full list. REVIEW OF SYSTEMS: The patient reports chest pain initially right-sided, right arm, then moved to left chest. Reports diaphoresis. Reports her blood pressure is elevated. Reports shortness of breath. Denies any back pain, fall, or injury. Denies any focal weakness. Does report a headache. Denies any dizziness. All other symptoms are reviewed and are negative unless mentioned in the HPI. PHYSICAL EXAMINATION: VITAL SIGNS: Blood pressure 113/59, pulse is 74, respiratory rate is 20, temp is 97.8, pO2 sats are 97% on room air. Pain is 5/10. CONSTITUTIONAL: Appears nontoxic, alert; oriented to person, place, and time. HEENT: Head is atraumatic and normocephalic. Eyes; eyelids normal to inspection. Pupils are equally round and reactive to light. ENT; mucous membranes are moist. Mouth exam is normal. NECK: Normal range of motion. Trachea is midline. RESPIRATORY: Breath sounds are clear. No source of respiratory distress. CARDIOVASCULAR: Regular heart rate and rhythm. Heart sounds are normal. ABDOMEN: No distention. Bowel sounds are heard. No tenderness to palpation. BACK: Normal inspection. Normal range of motion. No tenderness. EXTREMITIES: Upper extremities; normal inspection, normal range of motion, sensation intact, radial pulses equal bilaterally. Lower extremities; motor strength is normal, sensation intact, posterior tibial pulses equal, pedal pulses equal. NEUROLOGICAL: The patient is oriented to person, place, and time. Speech is normal. Gait is normal. Cranial nerves are intact. SKIN: Warm, dry, normal in color. LABORATORY DATA: Troponins x2 have been indeterminate. Chest x-ray, no acute process. BNP 44.9. Sodium 130, potassium 4.1, chloride 101, carbon dioxide 21, gap is 12, BUN is 24, creatinine is 1.03, estimated GFR is 57, glucose is 157. White blood cell count 11.3, hemoglobin 10.9, hematocrit is 32.1. PLAN AND ASSESSMENT: 1. Chest pain. We will trend troponins. We will ask Cardiology to consult, we appreciate their input. We will reconcile her home medications. 2. Drug alluding stents. Th patient is on Plavix, we will continue this. 3. Diabetes, a.c. and at bedtime Accu-Cheks. We will restart home medications. Add sliding scale as needed for coverage. 4. Hyperlipidemia. We will restart home medications. 5. GI and DVT prophylaxis will be started. Plan discussed with Dr. Mustafa who agrees. Hospital course dependent on clinical findings. Job ID: [id number]
[2019-01-03 04:51] LABS: #Eosinphils 0.4 thou/uL (0.0-0.7); #Monocytes 0.5 thou/uL (0.11-0.59); #Neutrophils 5.7 thou/uL (1.40-6.50); %Basophils 0.6 % (0.0-1.0); %Eosinophils 4.9 % (0.0-10.0); %Lymphocytes 23.1 % (21.0-51.0); %Monocytes 5.4 % (0.0-10.0); Hemoglobin 10.5 g/dL (12.0-16.0); Mean Corpuscular HGB CONC 34.3 g/dL (32.0-36.0); Mean Corpuscular Volume 73.1 fL (78.0-98.0); Mean Platelet Volume 8.5 fL (7.4-10.4); Platelet Count 237 thou/uL (130-400); RBC Distribution Width 15.1 % (11.5-14.5); Red Blood Cell (RBC) Count 4.19 mill/uL (4.20-5.40); White Blood Cell (WBC) Count 8.6 thou/uL (4.8-10.8)
[2019-01-03 05:14] LABS: ALT (SGPT) 9 U/L (8-55); AST (SGOT) 9 U/L (5-34); Albumin 3.1 g/dL (3.5-5.0); Alkaline Phosphatase 89 U/L (40-150); Anion Gap 11 mmol/L (10-20); BUN (Urea Nitrogen) 23 mg/dL (7.0-18.7); Bilirubin, Total 0.3 mg/dL (0.2-1.2); Calc. Creatinine Clearance 115 mL/min (70-130); Calcium 8.5 mg/dL (7.8-10.44); Carbon Dioxide 22 mmol/L (22-29); Chloride 103 mmol/L (98-107); Estimated GFR-MDRD 51; Globulin 3.2 g/dL (2.4-3.5); Glucose 327 mg/dL (70-105); Potassium 4.2 mmol/L (3.5-5.1); Protein, Total 6.3 g/dL (6.0-8.3); Sodium 132 mmol/L (136-145)
[2019-01-03] MEDS ORDERED: Atorvastatin Calcium 40 MG TAB PO SCH (09:00)
[2019-01-03] MEDS ORDERED: Aspirin Chewable 81 MG TAB PO SCH (09:00)
[2019-01-03] MEDS ORDERED: Amlodipine 10 MG TAB PO SCH (09:00)
[2019-01-03] MEDS: Enoxaparin Sodium 40 MG/0.4 ML SYRINGE SC SCH (10:24)
[2019-01-03] MEDS: hydrALAZINE 25 MG TAB PO SCH ×3 (10:24→20:23)
[2019-01-03] MEDS: HumaLOG 300 UNITS/3 ML VIAL SC SCH ×3 (10:24→18:18)
[2019-01-03] MEDS: Carvedilol 6.25 MG TAB PO SCH ×2 (10:25→15:26)
[2019-01-03] MEDS ORDERED: ISOVUE-370 76%-LOCM 1 ML ONE (13:37)
[2019-01-03] MEDS: Ezetimibe 10 MG TAB PO SCH (15:27)
[2019-01-03] MEDS: Atorvastatin Calcium 40 MG TAB PO SCH (15:28)
[2019-01-03] MEDS: Amlodipine 10 MG TAB PO SCH (15:28)
[2019-01-03] MEDS: Aspirin Chewable 81 MG TAB PO SCH (15:28)
[2019-01-03] MEDS: Clopidogrel Bisulfate 75 MG TAB PO SCH (15:28)
[2019-01-03] MEDS: Famotidine 20 MG TAB PO SCH ×2 (15:29→20:24)
[2019-01-03 16:19] LABS: BHCG - Serum Negative (NEGATIVE); Pregs Control Background? CLEAR/WHITE (CLR/WHITE); Pregs Control Bar Appear? YES (CONTROL BAR)
--- NOTE | 2019-01-03 19:03 | CON ---
DATE OF CONSULTATION: HISTORY OF PRESENT ILLNESS: Yuli Hayes is a 48-year-old [place] female, initially evaluated in May 2018. At that time, she gave a history of having a stent placed in coronary artery in 2014 in [place], [place]. However, at catheterization, no stent was seen. In January 2018, she was admitted and underwent Cardiolite scan, which was normal. She has been very noncompliant with her medicines at that time, not even taking aspirin. She was admitted in May 2018, with chest pressure that started around midnight. She is given Zofran, nitroglycerin sublingually, morphine 4 mg, aspirin 324, nitroglycerin paste, and another 2 mg of morphine as well as Lovenox 1 mg/kg. She was started on nitroglycerin drip and her pain essentially resolved. EKG has been normal, but she did have a troponin which went up to 10.570. She had a CTA of the chest, which did not reveal any evidence of pulmonary emboli. She underwent cardiac catheterization and it was noted that no previous stents were seen. She had mild anterior hypokinesis with ejection fraction of 45% to 50%. She was found to have an 80% mid LAD, 80% first diagonal, total occlusion of the second diagonal. There was a 60 % distal LAD stenosis. There was 30% and 50% first obtuse marginal stenosis. The right coronary artery was normal. She underwent placement of Rebel 2.5 x 16 in the mid LAD, this post dilated with a 3.5 mm balloon. The first diagonal had a Rebel 2.25 x 8 mm stent placed. Bare metal stents were placed due to concern about her lack of compliance with medical therapy. She was then readmitted on November 08, 2018, with chest heaviness. She had no EKG changes. Due to her history and the time frame being that for in-stent restenosis, she underwent catheterization. There was apical akinesis and moderate anterior hypokinesis with ejection fraction of 40% to 45%. There was a 90% mid LAD in- stent restenosis. The first diagonal stent was patent. The second diagonal was totally occluded as it had been in May 2018 and filled retrograde from the left. Circumflex had a 30%, and 50% in first obtuse marginal. The right coronary artery had a 20% distal stenosis. She then underwent placement of drug-eluting stent, 2.5 x 16 and 2.25 x 12 Synergy, lesions were reduced to 0%. 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 She became short of breath and mildly diaphoretic, feels nauseated. She states that prior to developing the chest discomfort, she had pain in her right leg. She also states that the chest pain was pleuritic in nature, but resolved after 30 minutes. PAST MEDICAL HISTORY: Hypertension, diabetes, hypercholesterolemia, migraine headaches, anxiety, depression, coronary artery disease, and non STEMI in May 2018. PAST SURGICAL HISTORY: Coronary artery stent placement, removal of tumor on the right side of her neck. MEDICATIONS: 1. Amlodipine daily. 2. Aspirin daily. 3. Plavix 75 mg daily. 4. Atorvastatin 80 mg daily. 5. Carvedilol 6.25 b.i.d. 6. Zetia 10 mg daily. 7. Furosemide 40 daily. 8. Hydralazine 25 mg t.i.d. 9. Isosorbide mononitrate 60 daily. 10. Levemir 60 units daily. 11. Lisinopril 1 daily. 12. Zoloft 4 tablets daily. ALLERGIES: NONE. SOCIAL HISTORY: She does not smoke or drink. FAMILY HISTORY: Both her mother and father had myocardial infarctions. REVIEW OF SYSTEMS: A 12-point review of systems is otherwise unremarkable. PHYSICAL EXAMINATION: VITAL SIGNS: Blood pressure 144/63 and pulse of 70. HEENT: PERRL. NECK: Supple. CHEST: Clear. CARDIAC: S1 and S2 normal without any S3, S4, or murmurs. ABDOMEN: Normal bowel sounds without tenderness. The abdomen is obese. EXTREMITIES: Revealed no clubbing, cyanosis, or edema. NEUROLOGIC: Grossly intact. SKIN: Warm and dry. LABORATORY DATA: EKG revealed normal sinus rhythm and evidence for septal infarction, which is an old finding. Hemoglobin 10.5, hematocrit 30.6, white count 8600, and platelets 237,000. Sodium 132, potassium 4.2, chloride 103, carbon dioxide 22, BUN 23, and creatinine 1.13. Troponin I is 0.033. IMPRESSION: 1. Non-cardiac pleuritic chest pain preceded by right leg pain. Her last catheterization was approximately 7 weeks ago. Her first diagonal stent continued to have excellent result and this is a bare-metal stent and would not re-stenose from being totally open to causing problems in 7 weeks. She also had a drug- eluting stent placed in mid left anterior descending in-stent restenosis 7 weeks ago. It is too early for her to have developed in-stent restenosis and the only problem she could be having would be acute stent thrombosis. If this is a case, her pain would not have only lasted 30 minutes, she would have very significantly elevated enzymes and would have significant changes on EKG all of which is not the case. 2. Coronary artery disease, status post bare metal stent placement in May 2018 in the mid left anterior descending and the in the first diagonal. The second diagonal was totally occluded at that time and filled retrograde. She then had in-stent restenosis in mid left anterior descending stent in November 2018 and underwent placement of drug-eluting stent in this area. 3. Mild left ventricular dysfunction. 4. Hypertension. 5. Diabetes. 6. Hypercholesterolemia. 7. Obesity. 8. Positive family history. PLAN: I do not feel any cardiac intervention is warranted at this time, however , with her pain being pleuritic in nature and she complained of pain in her right leg prior to this, I do feel that she should undergo a CT angiogram. If this is negative and I feel she may be discharged. Job ID: [id number] [facility] CENTERKristin
--- NOTE | 2019-01-03 19:41 | CT ---
CT ANGIOGRAM CHEST WITH 3D RENDERIN01/03/19 HISTORY: Dyspnea and chest pain. COMPARISON: 11/08/18. FINDINGS: Somewhat enlarged right lobe of thyroid with a 1.8 cm diameter low density nodule. Evidence for bilat eral interstitial and scattered alveolar pulmonary edema. No convincing CT evidence for acute pulmona ry embolism. Multivessel coronary artery stents. No evidence for aortic aneurysm or dissection. The v isualized upper abdomen is unremarkable. IMPRESSION: No convincing CT evidence for acute pulmonary embolism. Evidence for bilateral interstitial and alveo lar pulmonary edema. Evidence for a right lobe of thyroid low density nodule. POS: GUILLE
--- NOTE | 2019-01-03 19:41 | PRG ---
DATE OF SERVICE: 01/03/2019 SUBJECTIVE: Ms. Hayes is a pleasant 48-year-old female with past medical history significant for coronary artery disease with most recent left heart catheterization performed 7 weeks ago with drug-eluting stent placed to the LAD, ischemic cardiomyopathy with EF of 45% to 50%, diabetes mellitus, and obesity, who presented to the hospital with complaints of chest pain. ACS has been ruled out. She denies any further chest discomfort since her admission. She has been seen in consultation with Dr. Matute. She has no nausea or vomiting. She has no shortness of breath. No complaints at this time. OBJECTIVE: VITAL SIGNS: Blood pressure is 133/64, pulse is 81, O2 saturation is 97% on room air, respirations 18, temperature is 98.5. GENERAL: This is an obese, female, resting comfortably in bed, in no acute distress. HEENT: Head is atraumatic and normocephalic. Mucous membranes are moist. NECK: Trachea is midline. Supple. No JVD. Lungs: Regular respiratory rate and pattern. Clear to auscultation bilaterally. ABDOMEN: Positive bowel sounds. Soft, obese, nontender. EXTREMITIES: No lower extremity pitting edema. NEUROLOGIC: Cranial nerves 2 through 12 are grossly intact. The patient is nonfocal. SKIN: Warm and dry. LABORATORY DATA: White blood cell count 8.6, hemoglobin 10.5, hematocrit 30.6, platelets are 237. Sodium 132, potassium 4.2, BUN is 23, creatinine 1.13. Troponin 0.01 and 0.033 respectively. ASSESSMENT: 1. Chest pain, acute coronary syndrome ruled out. 2. Coronary artery disease with recent left heart catheterization performed approximately [address] Matute, with a drug-eluting stent placed in the mid LAD after an in-stent restenosis. She does also have a chronic total occlusion of the second diagonal, but per last left heart catheterization, her first diagonal stent was patent. 3. Ischemic cardiomyopathy with EF of 40% to 45%. 4. Type 2 diabetes mellitus. 5. Hypertension. 6. Hypercholesterolemia. 7. Obesity. PLAN: Dr. Matute has seen the patient, I very much appreciate his recommendations. He believes that her chest discomfort was more pleuritic in nature and does not believe that her stents are compromised or that this is cardiac in nature in that respect. Apparently, she had also complained of some leg pain along with her chest discomfort, and we will obtain a CTA to rule out pulmonary embolism. The patient will likely be able to be discharged if this is negative per Dr. Matute's recommendations. Further recommendations based on hospital course. Job ID: [id number]
[2019-01-04] MEDS ORDERED: Furosemide 40 MG TAB PO SCH (07:45)
[2019-01-04 08:29] VITALS: BP 147/72; TEMP 98.5
[2019-01-04] MEDS: Carvedilol 6.25 MG TAB PO SCH (08:45)
[2019-01-04] MEDS: HumaLOG 300 UNITS/3 ML VIAL SC SCH (08:45)
[2019-01-04] MEDS: Amlodipine 10 MG TAB PO SCH (08:46)
[2019-01-04] MEDS: Aspirin Chewable 81 MG TAB PO SCH (08:46)
[2019-01-04] MEDS: Atorvastatin Calcium 40 MG TAB PO SCH (08:47)
[2019-01-04] MEDS: Enoxaparin Sodium 40 MG/0.4 ML SYRINGE SC SCH (08:47)
[2019-01-04] MEDS: Famotidine 20 MG TAB PO SCH (08:47)
[2019-01-04] MEDS: Clopidogrel Bisulfate 75 MG TAB PO SCH (08:47)
[2019-01-04] MEDS: Ezetimibe 10 MG TAB PO SCH (08:47)
[2019-01-04] MEDS: hydrALAZINE 25 MG TAB PO SCH (08:48)
--- NOTE | 2019-01-04 22:57 | DIS ---
DATE OF ADMISSION: 01/02/2019 DATE OF DISCHARGE: 01/04/2019 CHIEF COMPLAINT ON ADMISSION: Chest pain. DISCHARGE DIAGNOSES: 1. Chest pain, acute coronary syndrome ruled out, Dr. Matute does not suspect angina. 2. Coronary artery disease with recent left heart catheterization performed approximately [address] Matute, with a drug-eluting stent placed in the mid left anterior descending after an in-stent restenoses. She does have a chronic total occlusion of the 2nd diagonal, but per her left heart catheterization, her 1st diagonal stent was patent. 3. Ischemic cardiomyopathy with ejection fraction of 40-45 percent. 4. Type 2 diabetes mellitus. 5. Hypertension. 6. Hypercholesterolemia. 7. Obesity. BRIEF HOSPITAL COURSE: Ms. Hayes is a very pleasant 48-year-old female with past medical history significant for coronary artery disease status post recent left heart catheterization as outlined above, who presented to the emergency department with complaints of chest pain. 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 She initially had some right leg pain prior to the onset of her chest discomfort, she describes her chest pain as pressure, lasting for about 30 minutes and she had some associated shortness of breath and was mildly diaphoretic. She also describes some chest discomfort that was pleuritic in nature. Given her cardiac history, she was admitted for ACS rule out and risk stratification. On arrival, her EKG showed no acute ST or T-wave changes. Her troponin was 0.010 and 0.033 respectively. She was seen in consultation with Dr. Matute who does not feel that her chest discomfort was related to angina, but was concerned about possible PE given her initial complaint of right leg pain prior to the onset of her symptoms. She did undergo CTA, which revealed no evidence of pulmonary embolism, but she did have some pulmonary edema present on her chest x-ray. Today, the patient states that she has had no further chest pain since her admission, she has no shortness of breath, nausea or vomiting at this time. She is tolerating a full diet and has ambulated the halls without issue. CONSULTANTS: Dr. Matute, cardiology. DISCHARGE DISPOSITION: Home. DISCHARGE CONDITION: Stable. DISCHARGE INSTRUCTIONS AND FOLLOWUP: The patient will continue her home medication regimen, which includes: 1. Amlodipine 10 mg daily. 2. Aspirin 81. 3. Atorvastatin 80 mg at bedtime. 4. Clopidogrel 75 mg daily. 5. Humalog 15 units subcu t.i.d. with meals. 6. Hydralazine 25 mg t.i.d. 7. Imdur 60 mg daily. 8. Levemir FlexPen 60 units daily. 9. Lisinopril 40 mg daily. 10. Sertraline 100 mg daily. 11. Sumatriptan 1 tablet p.o. p.r.n. 12. Carvedilol 6.25 mg b.i.d. 13. Ezetimibe 10 mg daily. 14. Lasix 40 mg daily. 15. Sublingual nitroglycerin p.r.n. 16. Potassium 20 mEq daily. I have counseled her extensively on the benefits to her health of weight loss. She will continue aggressive risk factor modification and follow up with Dr. Matute in one month. Given the findings of pulmonary edema on her CTA, despite no overt signs of volume overload, I have advised her to take an extra Lasix and monitor daily weights. She will continue sodium restriction and fluid restriction as well. Job ID: [id number]
[2019-01-05] MEDS ORDERED: Furosemide 40 MG TAB PO SCH (07:30)
== END 2019-01-04 11:55 | disposition home or self-care (01) ==
LOC: ERS 17:12 → EEVIPCON 19:41 → 2SW 19:41
PROVIDERS: ADMIT Internal Medicine; ATTEND Internal Medicine
DX: R07.81 Pleurodynia (principal); I25.10 Atherosclerotic heart disease of native coronary artery without angina pectoris; I25.82 Chronic total occlusion of coronary artery; I25.5 Ischemic cardiomyopathy; E11.9 Type 2 diabetes mellitus without complications; I10 Essential (primary) hypertension; E78.00 Pure hypercholesterolemia, unspecified; I25.2 Old myocardial infarction; E78.5 Hyperlipidemia, unspecified; G43.909 Migraine, unspecified, not intractable, without status migrainosus; F41.9 Anxiety disorder, unspecified; F32.9 Major depressive disorder, single episode, unspecified; M79.604 Pain in right leg; E66.9 Obesity, unspecified; Z68.41 Body mass index [BMI] 40.0-44.9, adult; Z79.02 Long term (current) use of antithrombotics/antiplatelets; Z79.4 Long term (current) use of insulin; Z79.899 Other long term (current) drug therapy; Z95.5 Presence of coronary angioplasty implant and graft; Z98.890 Other specified postprocedural states
CPT/HCPCS: 36415; 36416; 71045; 71275; 80053; 83880; 84484; 84703; 85025; 93005; 96372; 96374; G0378; J1650; J2270; Q9966

== ENCOUNTER 2019-01-04 23:55 | Observation (INO) | payer BC ==
[2019-01-05 01:02] LABS: #Basophils 0.1 thou/uL (0.0-0.2); #Eosinphils 0.4 thou/uL (0.0-0.7); #Lymphocytes 1.5 thou/uL (1.20-3.40); #Monocytes 0.6 thou/uL (0.11-0.59); #Neutrophils 9.6 thou/uL (1.40-6.50); %Basophils 0.4 % (0.0-1.0); %Eosinophils 3.3 % (0.0-10.0); %Lymphocytes 12.2 % (21.0-51.0); Hemoglobin 10.7 g/dL (12.0-16.0); Mean Corpuscular HGB CONC 32.3 g/dL (32.0-36.0); Mean Corpuscular Hemoglobin 24.1 pg (27.0-31.0); Mean Corpuscular Volume 74.6 fL (78.0-98.0); Mean Platelet Volume 8.2 fL (7.4-10.4); Platelet Count 260 thou/uL (130-400); RBC Distribution Width 15.1 % (11.5-14.5); Red Blood Cell (RBC) Count 4.45 mill/uL (4.20-5.40); White Blood Cell (WBC) Count 12.1 thou/uL (4.8-10.8)
[2019-01-05] MEDS ORDERED: Nitroglycerin 2% Ointment 1 INCH/1 GM Packet ONE (01:03)
[2019-01-05] MEDS ORDERED: Nitroglycerin 0.4 MG TAB 1 EACH ONE (01:03)
[2019-01-05] MEDS ORDERED: Aspirin Chewable 81 MG TAB ONE (01:03)
[2019-01-05 01:19] LABS: ALT (SGPT) 11 U/L (8-55); AST (SGOT) 14 U/L (5-34); Albumin 3.4 g/dL (3.5-5.0); Alkaline Phosphatase 90 U/L (40-150); Anion Gap 13 mmol/L (10-20); BUN (Urea Nitrogen) 22 mg/dL (7.0-18.7); Bilirubin, Total 0.3 mg/dL (0.2-1.2); Calc. Creatinine Clearance 0 mL/min (70-130); Calcium 9.4 mg/dL (7.8-10.44); Carbon Dioxide 23 mmol/L (22-29); Chloride 106 mmol/L (98-107); Estimated GFR-MDRD 70; Globulin 3.1 g/dL (2.4-3.5); Glucose 79 mg/dL (70-105); Potassium 3.6 mmol/L (3.5-5.1); Protein, Total 6.5 g/dL (6.0-8.3); Sodium 138 mmol/L (136-145)
[2019-01-05] MEDS ORDERED: Senokot S 8.6-50 MG TAB PO PRN (02:33)
[2019-01-05] MEDS ORDERED: Acetaminophen 325 MG TAB PO PRN (02:33)
[2019-01-05] MEDS ORDERED: Dextrose 5% in Water 1,000 ML IV PRN (03:22)
[2019-01-05] MEDS ORDERED: Dextrose 50% Abboject 50 ML SYRINGE SLOW IVP PRN (03:22)
[2019-01-05 03:52] LABS: #Basophils 0.1 thou/uL (0.0-0.2); #Eosinphils 0.3 thou/uL (0.0-0.7); #Lymphocytes 1.9 thou/uL (1.20-3.40); #Monocytes 0.5 thou/uL (0.11-0.59); #Neutrophils 9.2 thou/uL (1.40-6.50); %Basophils 0.5 % (0.0-1.0); %Eosinophils 2.9 % (0.0-10.0); %Lymphocytes 15.5 % (21.0-51.0); %Monocytes 4.2 % (0.0-10.0); %Neutrophils 76.9 % (42.0-75.0); Mean Corpuscular HGB CONC 30.9 g/dL (32.0-36.0); Mean Corpuscular Hemoglobin 23.2 pg (27.0-31.0); Mean Platelet Volume 8.2 fL (7.4-10.4); Platelet Count 263 thou/uL (130-400); RBC Distribution Width 15.1 % (11.5-14.5); Red Blood Cell (RBC) Count 4.74 mill/uL (4.20-5.40); White Blood Cell (WBC) Count 11.9 thou/uL (4.8-10.8)
[2019-01-05 04:13] LABS: Anion Gap 13 mmol/L (10-20); BUN (Urea Nitrogen) 21 mg/dL (7.0-18.7); Calc. Creatinine Clearance 0 mL/min (70-130); Calcium 9.4 mg/dL (7.8-10.44); Carbon Dioxide 22 mmol/L (22-29); Chloride 105 mmol/L (98-107); Estimated GFR-MDRD 65; Glucose 108 mg/dL (70-105); Potassium 3.9 mmol/L (3.5-5.1); Sodium 136 mmol/L (136-145)
[2019-01-05 04:20] LABS: Troponin I 0.013 ng/mL (< 0.028)
--- NOTE | 2019-01-05 05:30 | HP ---
This is SARANYA Pritchard dictating a report for Ivett Moreno MD. CHIEF COMPLAINT: Chest pain. HISTORY OF PRESENT ILLNESS: Ms. Hayes is a 48-year-old female, who was recently discharged on 01/04/2019 for similar complaints. She has a history of coronary artery disease with recent left heart catheterization performed [address] Matute with a drug-eluting stent placed in the mid left anterior descending after an in-stent restenosis. She does have a chronic total occlusion of the second diagonal but per her left heart catheterization, her first diagonal stent was patent. She does have ischemic cardiomyopathy with an EF of 40% to 45%, type 2 diabetes, hypertension, hypercholesterolemia, and obesity. She was admitted on 01/02/2019 for a similar complaint to today's chief complaint. She was admitted at that time for some chest pain. Also had a CTA of the chest, which was negative for any pulmonary emboli. 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 She reported at that time it was right-sided and then moved over to her left side. EKG at that time showed no ST or T-wave changes. Troponin 0.010 and then 0.03 respectively. She was seen by Dr. Matute, who did not feel at that time her chest discomfort was all related to angina and was concerned for possible PE, and she underwent CTA and showed no evidence as above of pulmonary emboli. She did have some pulmonary edema present to her x-ray, but she denied any further chest pain while she was admitted and was discharged home. She reports that she had been home for approximately 8 hours when she was playing with child in the house and chest pain started again, this time substernal. Reports that she was diaphoretic and had some nausea with it. Reports that it lingered until she came here and was relieved by the nitroglycerin paste that we had placed on her chest. Dr. Sumner was consulted by the ER physician, who reviewed the EKG that showed normal sinus rhythm with first-degree AV block, a septal infarct and found that the EKG was similar to the one that we had done on the first. Dr. Sumner would like the patient admitted to the observation unit and he would come see and evaluate. We will trend troponins. Repeat EKG. On exam for admission, the patient denied any current chest pain, did report a little bit of headache after the nitroglycerin place was paced. She was given some aspirin, given nitroglycerin sublingual, and an aspirin. She reports that she feels a little bit better. She will be admitted to the observation unit for further management. PAST MEDICAL HISTORY: Coronary artery disease status post stent placement x4, history of non ST-elevation NM in 2018, diabetes type 2, hypertension, hyperlipidemia, migraine headaches, and obesity. 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 ALLERGIES: NONE. MEDICATIONS: 1. Norvasc 10 mg p.o. daily. 2. Aspirin 81 mg p.o. daily. 3. Atorvastatin 80 mg p.o. daily. 4. Plavix 75 mg p.o. daily. 5. Humalog 15 units subcu t.i.d. with meals. 6. Hydralazine 25 mg p.o. t.i.d. 7. Isosorbide mononitrate 60 mg p.o. daily. 8. Levemir 60 units subcu daily. 9. Lisinopril 40 mg p.o. daily. 10. Sertraline 25 mg four tablets p.o. daily. 11. Sumatriptan 50 mg p.o. p.r.n. 12. Carvedilol 6.25 mg p.o. b.i.d. 13. Zetia 10 mg p.o. daily. 14. Furosemide 40 mg p.o. daily. 15. Nitroglycerin 0.4 mg q.5 minutes p.r.n. 16. Potassium chloride 20 mEq p.o. daily. PERTINENT LABORATORY DATA: White blood cell count 12.1, hemoglobin 10.7, hematocrit is 33.2, platelet count is 260. Chemistry unremarkable. First troponin undetectable. BNP was 60.6. PLAN AND ASSESSMENT: 1. Chest pain. We will trend troponins. Repeat EKG. We have consulted Dr. Sumner and would appreciate his input. 2. History of drug-eluting stents. We will continue her Plavix and aspirin. 3. History of hypertension. We will continue home medications. 4. Diabetes type 2. We will continue home medications. We will trend. Add before meals and at bedtime Accu-Cheks. We will restart her home medications once reconciled on admission. 5. Hyperlipidemia. We will continue home medications. 6. Cardiomyopathy, appear stable. We will continue home medications. 7. Case discussed with Dr. Cain, who agrees with plan. Job ID: [id number]
[2019-01-05] MEDS: HYDROcodone/Acetaminophen 5/325 mg Tablet PO PRN ×2 (06:17→11:44)
[2019-01-05 07:46] LABS: Troponin I Less than 0.010 ng/mL (< 0.028)
--- NOTE | 2019-01-05 08:56 | RAD ---
EXAM: Portable chest PROVIDED CLINICAL HISTORY: Chest pain COMPARISON: 01/02/2019 FINDINGS: Cardiac and mediastinal silhouette is within normal limits. No focal consolidation, pleural fluid or pneumothorax evident. IMPRESSION: No evidence for an acute cardiopulmonary process.
[2019-01-05] MEDS ORDERED: hydrALAZINE 25 MG TAB PO SCH (09:00)
[2019-01-05] MEDS ORDERED: Aspirin Chewable 81 MG TAB PO SCH (09:00)
[2019-01-05] MEDS ORDERED: Enoxaparin Sodium 40 MG/0.4 ML SYRINGE SC SCH ×2 (09:00→10:30)
[2019-01-05] MEDS ORDERED: Clopidogrel Bisulfate 75 MG TAB PO SCH (09:00)
[2019-01-05] MEDS ORDERED: Non-Formulary Item 1 EACH (Lisinopril [Lisinopril] 1 TAB) PO SCH (09:00)
[2019-01-05] MEDS ORDERED: Amlodipine 10 MG TAB PO SCH (09:00)
[2019-01-05] MEDS ORDERED: Atorvastatin Calcium 40 MG TAB PO SCH (09:00)
[2019-01-05] MEDS: Lisinopril 20 MG TAB PO SCH (09:22)
[2019-01-05] MEDS: Atorvastatin Calcium 40 MG TAB PO SCH (09:22)
[2019-01-05] MEDS: Ezetimibe 10 MG TAB PO SCH (09:22)
[2019-01-05] MEDS: Clopidogrel Bisulfate 75 MG TAB PO SCH (09:22)
[2019-01-05] MEDS: Famotidine 20 MG TAB PO SCH ×2 (09:23→19:47)
[2019-01-05] MEDS: Aspirin Chewable 81 MG TAB PO SCH (09:23)
[2019-01-05] MEDS: hydrALAZINE 25 MG TAB PO SCH ×3 (09:23→19:48)
[2019-01-05] MEDS: Amlodipine 10 MG TAB PO SCH (09:23)
[2019-01-05] MEDS: Potassium Chloride 20 MEQ TAB PO SCH (09:23)
[2019-01-05] MEDS ORDERED: Enoxaparin Sodium 80 MG/0.8 ML SYRINGE SC SCH (11:30)
--- NOTE | 2019-01-05 14:19 | CT ---
Exam: Head CT without contrast HISTORY: Dizziness. Nausea. Blurred vision. COMPARISON: 09/19/2017 FINDINGS: Hemorrhage: No intraparenchymal hemorrhage or extra-axial hematoma. Brain parenchyma: Cortical dumont-white matter differentiation is preserved. No mass effect or midline shift. Basilar cisterns are patent. Ventricular system: Ventricles and sulci are patent and symmetric. Calvarium: Intact. Sinuses and mastoid air cells: Adequate aeration. IMPRESSION: No acute intracranial process.
[2019-01-05] MEDS: Carvedilol 6.25 MG TAB PO SCH (15:56)
[2019-01-05] MEDS: HumaLOG 300 UNITS/3 ML VIAL SC PRN (17:06)
--- NOTE | 2019-01-05 17:46 | PRG ---
DATE OF SERVICE: 01/05/2019 SUBJECTIVE: Ms. Hayes is a pleasant 48-year-old female with past medical history significant for coronary artery disease, status post recent left heart catheterization approximately 7 weeks ago, where she had in-stent restenosis of her LAD, status post PTCA and stenting with a drug-eluting stent, hypertension, type 2 diabetes mellitus, and obesity, who presented to the ED with complaints of chest pain that began yesterday evening. The patient is known to me from a very recent hospitalization, in fact, the patient was just discharged yesterday, where she was admitted for chest pain rule-out. She was seen in consultation with Dr. Matute, who agreed with discharge after ACS rule-out. Given this history, the patient presents back to the ED last night with complaints of chest pressure and shortness of breath, along with some dizziness. The patient states that she was feeling very well at home, and was playing with her nephew when her symptoms began. She said she dropped to her knees and felt dizzy and could not get her breath. She had some chest pressure, her blood pressure was 200s, and EMS was called. She was admitted for further workup and treatment. On my interview this morning, the patient is not having any active chest pain, she does continue to complain of some dizziness. No nausea or vomiting. No other complaints at this time. OBJECTIVE: VITAL SIGNS: Blood pressure 129/60, pulse is 80, O2 saturation is 96% on room air, respirations 16, and temperature 98.6. GENERAL: The patient is an obese female, resting comfortably in bed, in no acute distress. HEENT: Head is atraumatic and normocephalic. Mucous membranes are moist. NECK: Trachea is midline. No JVD. CV: S1 and S2. Regular rate and rhythm. No appreciable murmurs, rubs, or gallops. LUNGS: Regular respiratory rate and pattern. Clear to auscultation bilaterally. ABDOMEN: Positive bowel sounds. Soft, nontender. EXTREMITIES: No pitting edema. SKIN: Warm and dry. NEUROLOGIC: Cranial nerves 2 through 12 grossly intact. The patient is nonfocal. LABORATORY DATA: White blood cell count 11.9, hemoglobin 11, hematocrit 35.5, and platelets 263. Sodium 136, potassium 3.9, BUN is 21, creatinine 0.98. Troponin is negative x3. BNP 60. ASSESSMENT: 1. Recurrent chest pain, in the setting of recent left heart catheterization approximately 7 weeks ago, acute coronary syndrome ruled out. 2. Coronary artery disease with recent left heart catheterization by Dr. Matute, with drug-eluting stent placed in the mid LAD after previous in-stent restenosis. She has been compliant with her aspirin and Plavix. She does have a chronic total occlusion of the second diagonal with a patent stent in the 1st diagonal. 3. Ischemic cardiomyopathy with ejection fraction 40% to 45%, currently euvolemic. 4. Type 2 diabetes mellitus. 5. Hypertension. 6. Hyperlipidemia. PLAN: Given the patient's recurrent chest pain, Cardiology has been reconsulted, and Dr. Matute will see the patient tomorrow for further workup and treatment. She may be a candidate for medical therapy with optimization of her antianginals and consideration of Ranexa versus repeat left heart catheterization. She did complain of some dizziness and blurred vision, CT was negative for any abnormality, and I suspect this might have been secondary to her accelerated hypertension, which is much improved at this point. I will continue sliding scale insulin. Dr. Sumner has seen the patient and ordered full-dose Lovenox. We will continue telemetry monitoring, along with dual anti-platelet therapy and await further recommendations from Cardiology. Job ID: [id number]
--- NOTE | 2019-01-05 17:56 | CON ---
DATE OF CONSULTATION: 01/05/2019 REASON FOR CONSULTATION: Recurrent chest pressure at rest. 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 REASON FOR ADMISSION: Chest pressure. HISTORY OF PRESENT ILLNESS: Ms. Hayes is a very pleasant 48-year-old patient with history of coronary artery disease. The patient had a previous stent in her left anterior descending artery and had been hospitalized in November with chest pain and found to have severe in-stent restenosis. The patient did have a non-ST elevation infarction diagnosed at that point with a peak troponin of 0.913. The patient had stents placed in the left anterior descending artery in an overlapped fashion, two stents were placed successfully. The patient tolerated that well. The patient also had some distal disease in the circumflex distribution. The patient re-presented with recurrent chest pain and pressure on 01/03/2019. The cardiac enzymes at that point were negative and then indeterminate with a troponin of 0.033. The patient was discharged home. She was doing well until late last night, had the onset of severe pressure in her chest. She said it felt like what she had previously. She said she took nitroglycerin, but did not help. The pain was intense, she tells me. She was finally brought to the emergency room. There was initially some concern about there is being an acute inferior infarct, but the EKG did not show evidence of that. The patient finally had resolution of her discomfort and has been brought in for further evaluation. The patient states she was taking aspirin and Plavix. The patient is resting comfortably now. The previous stents which were placed were 2.5 mm x 16 and 2.25 x 12 and then it looks like postdilated with a 2.5 mm high-pressure balloon. MEDICATIONS: She has mentioned she was taking aspirin and was taking Plavix, in addition; 1. Lisinopril. 2. Insulin. 3. Imitrex. 4. Atorvastatin. 5. Isosorbide. 6. Carvedilol. 7. Furosemide. 8. Potassium. 9. Tramadol. ALLERGIES: NONE KNOWN. SOCIAL HISTORY: No alcohol or tobacco. FAMILY HISTORY: Noncontributory, negative. No mention of heart disease at a young age. REVIEW OF SYSTEMS: CONSTITUTIONAL: No significant weight gain or loss. She is very overweight. HEENT: Vision, no changes. Hearing, no changes. PULMONARY: No cough or wheezing. GASTROINTESTINAL: No nausea, vomiting, or diarrhea. SKIN: No rashes. NEUROLOGIC: No unilateral weakness or numbness. PSYCHIATRIC: No unusual depression or anxiety. PHYSICAL EXAMINATION: GENERAL: This is a pleasant, obese patient. VITAL SIGNS: 5 feet and 5 inches tall, 263 pounds, BMI is 43.8. Blood pressure is 184/81, pulse 80 and it is regular. LUNGS: Clear. CARDIAC: Normal S1, normal S2. ABDOMEN: Obese, but soft, nontender. No hepatosplenomegaly. EXTREMITIES: Warm and dry. No clubbing or cyanosis. No edema. PSYCHIATRIC: Mood and affect, normal. NEUROLOGIC: Grossly normal. PERTINENT LABORATORY DATA: The troponin is less than 0.010, it was 0.013 last night. EKG, the computer read as possible inferior infarct, but there is really no evidence of that. The patient does have high cholesterol with a total cholesterol of 222, HDL 47, LDL 137, triglyceride 191, mixed hyperlipidemia. ASSESSMENT: 1. Previous stent implantation. 2. Recent in-stent restenosis, treated with two stents overlapping as outlined above. 3. Recurrent chest pressure, suspicious for angina from her description. 4. No evidence of any acute myocardial infarction. 5. Morbid obesity. 6. Mixed hyperlipidemia. 7. Diabetes, type 2. I did review the cardiac catheterization films. The stents were placed previously. It did require crossing a septal perforating artery, which could be a potential source of angina. There is also a distal lesion in the circumflex distribution and some distal disease in the right coronary that could be responsible for her symptoms. She has now come back on two different occasions with recurrent pain. Dr. Matute will see the patient tomorrow to decide whether to go back to the cardiac catheterization lab to further evaluate versus continued medical therapy. For now, give one further dose of Lovenox tonight. Continue blood pressure medicines. I am suspicious that potentially this could be angina from a side branch, especially the septal perforating artery, but this time it is not completely clear. Dr. Matute to resume care tomorrow. Job ID: [id number]
[2019-01-05] MEDS ORDERED: HumaLOG 300 UNITS/3 ML VIAL SC PRN (20:24)
[2019-01-05] MEDS ORDERED: Enoxaparin Sodium 120 MG/0.8 ML SYRINGE SC SCH (21:00)
[2019-01-06] MEDS: Furosemide 40 MG TAB PO SCH (08:26)
[2019-01-06] MEDS: Potassium Chloride 20 MEQ TAB PO SCH (08:26)
[2019-01-06] MEDS: hydrALAZINE 25 MG TAB PO SCH ×2 (08:26→18:27)
[2019-01-06] MEDS: Aspirin Chewable 81 MG TAB PO SCH (08:27)
[2019-01-06] MEDS: Famotidine 20 MG TAB PO SCH (08:27)
[2019-01-06] MEDS: Ezetimibe 10 MG TAB PO SCH (08:27)
[2019-01-06] MEDS: Amlodipine 10 MG TAB PO SCH (08:27)
[2019-01-06] MEDS: Atorvastatin Calcium 40 MG TAB PO SCH (08:27)
[2019-01-06] MEDS: Carvedilol 6.25 MG TAB PO SCH ×2 (08:27→19:33)
[2019-01-06] MEDS: Clopidogrel Bisulfate 75 MG TAB PO SCH (08:27)
[2019-01-06] MEDS: Lisinopril 20 MG TAB PO SCH (08:28)
[2019-01-06 09:44] LABS: #Eosinphils 0.4 thou/uL (0.0-0.7); #Lymphocytes 1.7 thou/uL (1.20-3.40); #Monocytes 0.4 thou/uL (0.11-0.59); #Neutrophils 5.2 thou/uL (1.40-6.50); %Basophils 0.6 % (0.0-1.0); %Eosinophils 5.4 % (0.0-10.0); %Lymphocytes 21.8 % (21.0-51.0); %Monocytes 5.4 % (0.0-10.0); %Neutrophils 66.9 % (42.0-75.0); Hemoglobin 11.3 g/dL (12.0-16.0); Mean Corpuscular HGB CONC 32.2 g/dL (32.0-36.0); Mean Corpuscular Hemoglobin 23.9 pg (27.0-31.0); Mean Corpuscular Volume 74.1 fL (78.0-98.0); Mean Platelet Volume 8.1 fL (7.4-10.4); Platelet Count 260 thou/uL (130-400); RBC Distribution Width 15.3 % (11.5-14.5); Red Blood Cell (RBC) Count 4.75 mill/uL (4.20-5.40); White Blood Cell (WBC) Count 7.7 thou/uL (4.8-10.8)
[2019-01-06] MEDS ORDERED: Sodium Chloride 0.9% 1,000 ML IV SCH ×2 (10:00→15:03)
[2019-01-06] MEDS ORDERED: Communication Order-Pharmacy FS SCH (10:00)
[2019-01-06 10:02] LABS: Anion Gap 9 mmol/L (10-20); BUN (Urea Nitrogen) 14 mg/dL (7.0-18.7); Calc. Creatinine Clearance 149 mL/min (70-130); Calcium 9.4 mg/dL (7.8-10.44); Carbon Dioxide 27 mmol/L (22-29); Cardiac Risk 3.2 (Less than 4.5); Chloride 104 mmol/L (98-107); Cholesterol 144 mg/dl (< 200 Desired); Estimated GFR-MDRD 70; Glucose 154 mg/dL (70-105); HDL Cholesterol 45 mg/dL (>60 Neg Risk); LDL Cholesterol, Calculated 65 mg/dL; Potassium 4.4 mmol/L (3.5-5.1); Sodium 136 mmol/L (136-145); Triglycerides 170 mg/dL (Less than 150)
[2019-01-06] MEDS ORDERED: Iopamidol 370 76% 100 ML VIAL ONE (11:04)
[2019-01-06] MEDS ORDERED: Iopamidol 370 76% 50 ML VIAL FS ONE (11:04)
[2019-01-06] MEDS ORDERED: Heparin 10,000 UNITS/1 ML VIAL ONE (12:37)
[2019-01-06] MEDS ORDERED: Lidocaine 1% (PF) 30 ML VIAL ONE (12:37)
--- NOTE | 2019-01-06 12:45 | PDOC.HOSPP ---
- Subjective Subjective: Patient states she is feeling well, seen by Dr. Matute and told she will have a catheterization today. She is to remain NPO. Noted blood clot in her urine, states she has not had her menses since July this year. Denies any dysuria. No vaginal spotting. No abdominal pain/cramping. - Objective Vital Signs & Weight: Vital Signs (12 hours) Temp Pulse Resp BP Pulse Ox 01/06/19 11:08 98.3 F 69 16 138/67 96 01/06/19 08:27 75 01/06/19 08:26 75 01/06/19 07:23 98.1 F 75 16 184/82 H 99 01/06/19 03:47 97.9 F 75 20 167/77 H 97 Weight Weight 263 lb 6.4 oz I&O: 01/05/19 01/06/19 01/07/19 06:59 06:59 06:59 Intake Total 1070 Output Total 500 3300 Balance -500 -2230 Result Diagrams: 01/06/19 09:16 01/06/19 09:16 Additional Labs: Accuchecks 01/06/19 01/06/19 01/05/19 11:12 03:52 20:31 POC Glucose 157 H 132 H 138 H 01/05/19 16:38 POC Glucose 278 H ROS - Review of Systems All systems: All other ROS were reviewed and found negative. Constitutional: reports: other (mild headache this morning, has resolved.). denies: fever, chills, sweats, weakness, malaise Eyes: denies: pain, vision change, conjunctivae inflammation, eyelid inflammation, redness ENT: denies: ear pain, ear discharge, nose pain, nose discharge, nose congestion , mouth pain, mouth swelling, throat pain, throat swelling Respiratory: denies: cough, dry, shortness of breath, hemoptysis, SOB with excertion, pleuritic pain, sputum, wheezing Cardiovascular: reports: chest pain (intermittent, no further chest pain since last night.). denies: palpitations, orthopnea, paroxysmal noc. dyspnea, edema, light headedness Gastrointestinal: denies: nausea, vomitting, abdominal pain, diarrhea, constipation, melena, hematochezia Genitourinary: reports: hematuria. denies: dysuria, frequency, incontinence, retention Musculoskeletal: denies: neck pain, shoulder pain, arm pain, back pain, hand pain, leg pain, foot pain, other Skin: denies: rash, lesions, alex, bruising Neurological: denies: weakness, numbness, incoordination, change in speech, confusion, seizures - Medication Medications: Active Medications Generic Name Dose Route Start Last Admin Trade Name Freq PRN Reason Stop Dose Admin Hydrocodone Bitart/Acetaminophen 1 tab 01/05/19 02:33 01/05/19 11:44 [place] 5/325 PO 1 tab Q4H PRN Administration Moderate Pain (4-6) Amlodipine Besylate 10 mg 01/05/19 09:00 01/06/19 08:27 Norvasc PO 10 mg DAILY ANDREY Administration Aspirin 81 mg 01/05/19 09:00 01/06/19 08:27 Aspirin Chewable PO 81 mg DAILY ANDREY Administration Atorvastatin Calcium 80 mg 01/05/19 09:00 01/06/19 08:27 Lipitor PO 80 mg DAILY ANDREY Administration Carvedilol 6.25 mg 01/05/19 17:00 01/06/19 08:27 Coreg PO 6.25 mg BID-WM ANDREY Administration Clopidogrel Bisulfate 75 mg 01/05/19 09:00 01/06/19 08:27 Plavix PO 75 mg DAILY ANDREY Administration Ezetimibe 10 mg 01/05/19 09:00 01/06/19 08:27 Zetia PO 10 mg DAILY ANDREY Administration Famotidine 20 mg 01/05/19 09:00 01/06/19 08:27 Pepcid PO 20 mg BID ANDREY Administration Furosemide 40 mg 01/06/19 07:30 01/06/19 08:26 Lasix PO 40 mg DAILY-AC ANDREY Administration Hydralazine HCl 25 mg 01/05/19 09:00 01/06/19 08:26 Apresoline PO 25 mg TID ANDREY Administration Sodium Chloride 1,000 mls @ 100 mls/hr 01/06/19 10:00 01/06/19 11:48 Normal Saline 0.9% IV 1,000 mls .Q10H ANDREY Administration Insulin Human Lispro 0 units 01/05/19 03:22 01/05/19 17:06 Humalog SC 4 unit .MILD SLIDING SCALE PRN Administration Mild Correctional Scale Isosorbide Mononitrate 60 mg 01/05/19 09:00 01/06/19 08:27 Imdur PO 60 mg DAILY ANDREY Administration Lisinopril 40 mg 01/05/19 09:00 01/06/19 08:28 Zestril PO 40 mg DAILY ANDREY Administration Potassium Chloride 20 meq 01/05/19 09:00 01/06/19 08:26 K-Dur PO 20 meq DAILY ANDREY Administration Ranolazine 500 mg 01/06/19 09:00 01/06/19 08:27 Ranexa PO 500 mg BID ANDREY Administration Sertraline HCl 100 mg 01/05/19 09:00 01/06/19 08:26 Zoloft PO 100 mg DAILY ANDREY Administration Sodium Chloride 10 ml 01/05/19 02:33 01/05/19 19:48 Flush - Normal Saline IVF 10 ml PRN PRN Administration Saline Flush - Exam NAD (obese), awake alert Eye: PERRL, anicteric sclera ENT: normocephalic atraumatic, no oropharyngeal lesions, moist mucosa Neck: supple, symmetric, no JVD, no Thyromegaly, no lymphadenopathy Heart: RRR, no murmur, no gallops, no rubs, normal peripheral pulses Respiratory: CTAB, no wheezes, no rales, no ronchi, normal chest expansion, no tachypnea Gastrointestinal: soft, non-tender, non-distended, normal bowel sounds, no palpable masses Extremities: no cyanosis, no clubbing, no edema Skin: normal turgor, no lesions, no rashes Neurological: CN's grossly intact, normal sensation to touch, no weakness, no focal deficits, no new deficit Musculoskeletal: normal tone, normal strength, no muscle wasting Psychiatric: normal affect, normal behavior, A&O x 3 Hosp A/P (1) Hematuria Code(s): R31.9 - HEMATURIA, UNSPECIFIED Status: Acute Plan: Noted blood clot in urine today, will continue to monitor. UA/UCx. Denies any dysuria. Unclear if vaginal bleeding vs. true hematuria. (2) Chest discomfort Code(s): R07.89 - OTHER CHEST PAIN Status: Resolved Plan: Seen by Dr. Matute, awaiting repeat cath. Further recommendations/disposition as per Cardiology. (3) CAD (coronary artery disease) Code(s): I25.10 - ATHSCL HEART DISEASE OF [place] CORONARY ARTERY W/O ANG PCTRS Status: Chronic Qualifiers: Coronary Disease-Associated Artery/Lesion type: [place] artery Associated angina: with unstable angina (4) DM type 2 (diabetes mellitus, type 2) Status: Chronic Qualifiers: Diabetes mellitus group home insulin use: with group home use Plan: Continue to monitor glucose. ISS initiated. (5) Dyslipidemia Code(s): E78.5 - HYPERLIPIDEMIA, UNSPECIFIED Status: Chronic (6) HTN (hypertension) Code(s): I10 - ESSENTIAL (PRIMARY) HYPERTENSION Status: Chronic Qualifiers:
[2019-01-06] MEDS ORDERED: Midazolam HCl 2 mg/2 ml Vial ONE (13:31)
[2019-01-06] MEDS ORDERED: Fentanyl 100 MCG/2 ML VIAL ONE (13:32)
[2019-01-06] MEDS ORDERED: Protamine Sulfate 50 MG/5 ML VIAL ONE (14:00)
[2019-01-06] MEDS ORDERED: Bivalirudin 250 MG VIAL ONE (14:05)
[2019-01-06] MEDS ORDERED: Nitroglycerin 100MG/250ML BOT 250 ML ONE (14:06)
[2019-01-06] MEDS ORDERED: Nitroglycerin 0.4 MG TAB (25 Tab Bottle) SL PRN (15:01)
[2019-01-06] MEDS ORDERED: Morphine 2 MG/ML SYRINGE SLOW IVP PRN (15:01)
[2019-01-06] MEDS ORDERED: Morphine 2 MG/ML SYRINGE ONE (17:51)
[2019-01-07] MEDS: HYDROcodone/Acetaminophen 5/325 mg Tablet PO PRN (02:54)
[2019-01-07] MEDS: Famotidine 20 MG TAB PO SCH ×2 (04:07→08:11)
[2019-01-07] MEDS: hydrALAZINE 25 MG TAB PO SCH ×2 (04:07→08:11)
[2019-01-07 04:59] LABS: #Eosinphils 0.2 thou/uL (0.0-0.7); #Lymphocytes 1.3 thou/uL (1.20-3.40); #Monocytes 0.5 thou/uL (0.11-0.59); #Neutrophils 6.3 thou/uL (1.40-6.50); %Basophils 0.5 % (0.0-1.0); %Eosinophils 2.6 % (0.0-10.0); Hemoglobin 11.3 g/dL (12.0-16.0); Mean Corpuscular HGB CONC 31.8 g/dL (32.0-36.0); Mean Corpuscular Hemoglobin 23.9 pg (27.0-31.0); Mean Corpuscular Volume 75.1 fL (78.0-98.0); Platelet Count 263 thou/uL (130-400); RBC Distribution Width 15.1 % (11.5-14.5); Red Blood Cell (RBC) Count 4.73 mill/uL (4.20-5.40); White Blood Cell (WBC) Count 8.3 thou/uL (4.8-10.8)
[2019-01-07 05:16] LABS: ALT (SGPT) 9 U/L (8-55); AST (SGOT) 13 U/L (5-34); Albumin 3.3 g/dL (3.5-5.0); Alkaline Phosphatase 84 U/L (40-150); Anion Gap 12 mmol/L (10-20); BUN (Urea Nitrogen) 12 mg/dL (7.0-18.7); Bilirubin, Total 0.5 mg/dL (0.2-1.2); Calc. Creatinine Clearance 144 mL/min (70-130); Carbon Dioxide 23 mmol/L (22-29); Chloride 105 mmol/L (98-107); Estimated GFR-MDRD 67; Globulin 3.4 g/dL (2.4-3.5); Glucose 191 mg/dL (70-105); Potassium 4.1 mmol/L (3.5-5.1); Protein, Total 6.7 g/dL (6.0-8.3); Sodium 136 mmol/L (136-145)
[2019-01-07 05:23] VITALS: BMI 44.6
[2019-01-07] MEDS: HumaLOG 300 UNITS/3 ML VIAL SC PRN ×2 (06:24→11:44)
[2019-01-07 07:57] LABS: Iron 33 ug/dL (50-170); Iron Binding Capacity, Total 268 mcg/dL (265-497)
[2019-01-07] MEDS: Furosemide 40 MG TAB PO SCH (08:09)
[2019-01-07] MEDS: Aspirin Chewable 81 MG TAB PO SCH (08:10)
[2019-01-07] MEDS: Amlodipine 10 MG TAB PO SCH (08:10)
[2019-01-07] MEDS: Carvedilol 6.25 MG TAB PO SCH (08:10)
[2019-01-07] MEDS: Ezetimibe 10 MG TAB PO SCH (08:11)
[2019-01-07] MEDS: Clopidogrel Bisulfate 75 MG TAB PO SCH (08:11)
[2019-01-07] MEDS: Lisinopril 20 MG TAB PO SCH (08:11)
[2019-01-07] MEDS: Atorvastatin Calcium 40 MG TAB PO SCH (08:11)
[2019-01-07] MEDS: Potassium Chloride 20 MEQ TAB PO SCH (08:12)
[2019-01-07 11:32] VITALS: TEMP 98.2
[2019-01-07 12:13] VITALS: BP 130/62
--- NOTE | 2019-01-07 16:59 | DIS ---
DATE OF ADMISSION: 01/05/2019 DATE OF DISCHARGE: 01/07/2019 CONSULTING PHYSICIANS: 1. Dr. Sumner, Cardiology. 2. Followed up by Dr. Matute, Cardiology. DISCHARGE DIAGNOSES: 1. Recurrent chest pain, resolved. 2. Coronary artery disease. Bare-metal stent in mid-left anterior descending artery and first diagonal in May 2018. 3. Drug-eluting stent in mid-left anterior descending artery, in-stent restenosis in November 2017, status post successful percutaneous coronary intervention/drug eluting stent of the ostial first diagonal coronary artery and proximal circumflex into the first obtuse marginal coronary artery on January 06, 2019. 4. No evidence of acute myocardial infarction. 5. Mixed hyperlipidemia. 6. Ejection fraction 40% to 45%. 7. Hypertension. 8. Diabetes mellitus. 9. Family history of coronary artery disease. 10. Anxiety/depression. HOSPITAL COURSE: Ms. Hayes is a pleasant 48-year-old woman, who presented with complaints of chest pressure that has been persisting and requiring previous hospitalization in November 2018. At that time, she was found to have severe in-stent restenoses and was diagnosed with an NSTEMI. On this admission, the patient had no evidence of acute OR. She had indeterminate troponins earlier this month after presenting with recurring chest pain. On this visit, she has once again undergone cardiac investigations including serial troponins, which were negative. The EKG was read by Dr. Sumner, who felt there was no evidence of changes consistent with infarct. She underwent investigations including a chest x-ray, which showed no evidence for an acute cardiopulmonary process. She did not have a stress test. This was just recently done on November 09, 2018. At which time, she was noted to have a large area of scar in the apex and apical anterior wall with minimal gustavo-infarction ischemia with apical akinesis and mild dyskinesis. An EF documented at that time of 43% with an elevated EDV. Her last echo was done in November as well, showing an EF of 40% to 45% with an akinetic apex and hypokinetic septum. There is a restrictive filling pattern, and the left atrium was moderately dilated. There was mild mitral regurgitation present. Mild tricuspid and mild pulmonic regurgitation present. The patient was seen initially by Dr. Sumner, who felt she could potentially have a distal disease in the right coronary that could be causing her recurring chest pain. It was advised that she will be seen by her unit operator, Dr. Matute, for discussion of catheterization and continue medical therapy. The patient was seen by Dr. Matute and started on Ranexa 500 mg twice daily. She denied before discharge. This was increased to 1000 mg twice daily. He did take the patient for catheterization, and she underwent stenting as mentioned above. Dr. Matute advised that she will return to work on January 14, 2019. Given the hypochromic microcytic anemia, he advised additional blood tests to be done by her primary care physician including iron and total iron-binding capacity. He scheduled the patient for inpatient and outpatient cardiac rehab. She has been seen and arrangements have been made for her to follow up as an outpatient. At the time of discharge, the patient is feeling significantly better without any pain. She has been tolerating oral intake today without any nausea or vomiting. Has been ambulating without any chest pain or shortness of breath. She remains afebrile. Denies nausea or vomiting. All other review of systems are negative. The patient was seen and examined on day of discharge. CONDITION: Stable. ACTIVITY: As tolerated. DIET: Heart healthy/diabetic diet. She was given dietary information on a heart healthy eating plan. DISCHARGE MEDICATIONS: 1. Prescription provided for Ranexa 1000 mg p.o. twice daily, as advised by Dr. Matute. 2. Otherwise advised to resume all other home medications. FOLLOWUP: 1. The patient was advised to follow up with her primary care physician within 1 week and will require iron studies as per Dr. Matute. 2. The patient will follow up with Dr. Matute in 2 weeks as recommended. 3. Outpatient cardiac rehab. DISPOSITION: The patient medically cleared for discharge home on 01/07/2019. Job ID: [id number]
--- NOTE | 2019-01-07 18:52 | EKG ---
Test Reason : Blood Pressure : / mmHG Vent. Rate : 068 BPM Atrial Rate : 068 BPM P-R Int : 202 ms QRS Dur : 100 ms QT Int : 422 ms P-R-T Axes : 013 053 070 degrees QTc Int : 448 ms Normal sinus rhythm Anteroseptal infarct (cited on or before 08-NOV-2018) Abnormal ECG When compared with ECG of 05-JAN-2019 01:14, (Unconfirmed) No significant change was found Confirmed by ASHLEY LEE, SYuri (4) on 01/07/2019 6:51:58 PM Referred By: CHIDI Confirmed By:DR. Val RAMIREZ MD
--- NOTE | 2019-01-07 18:53 | EKG ---
Test Reason : Blood Pressure : / mmHG Vent. Rate : 078 BPM Atrial Rate : 078 BPM P-R Int : 206 ms QRS Dur : 098 ms QT Int : 402 ms P-R-T Axes : 054 056 076 degrees QTc Int : 458 ms Normal sinus rhythm Septal infarct (cited on or before 08-NOV-2018) Abnormal ECG When compared with ECG of 06-JAN-2019 16:02, (Unconfirmed) No significant change was found Confirmed by ASHLEY LEE, SYuri (4) on 01/07/2019 6:52:42 PM Referred By: CHIDI Confirmed By:DR. Val RAMIREZ MD
== END 2019-01-07 15:19 | disposition home or self-care (01) ==
LOC: ERS 23:55 → 2SW 01-05 02:20
PROVIDERS: ADMIT Hospitalist; ATTEND Hospitalist
PROC: 4A023N7 Measurement of Cardiac Sampling and Pressure, Left Heart, Percutaneous Approach (ICD-10-PCS; principal; 2019-01-06)
PROC: B2111ZZ Fluoroscopy of Multiple Coronary Arteries using Low Osmolar Contrast (ICD-10-PCS; 2019-01-06)
PROC: 027135Z Dilation of Coronary Artery, Two Arteries with Two Drug-eluting Intraluminal Devices, Percutaneous Approach (ICD-10-PCS; 2019-01-06)
DX: I25.110 Atherosclerotic heart disease of native coronary artery with unstable angina pectoris (principal); I25.82 Chronic total occlusion of coronary artery; R07.2 Precordial pain; I10 Essential (primary) hypertension; E11.9 Type 2 diabetes mellitus without complications; I25.2 Old myocardial infarction; I25.5 Ischemic cardiomyopathy; E78.00 Pure hypercholesterolemia, unspecified; I44.0 Atrioventricular block, first degree; E78.2 Mixed hyperlipidemia; F41.9 Anxiety disorder, unspecified; F32.9 Major depressive disorder, single episode, unspecified; D50.9 Iron deficiency anemia, unspecified; E66.9 Obesity, unspecified; Z68.41 Body mass index [BMI] 40.0-44.9, adult; Z79.02 Long term (current) use of antithrombotics/antiplatelets; Z79.4 Long term (current) use of insulin; Z79.82 Long term (current) use of aspirin; Z79.899 Other long term (current) drug therapy; Z95.5 Presence of coronary angioplasty implant and graft
CPT/HCPCS: 36415; 36416; 70450; 71045; 80048; 80053; 80061; 83540; 83550; 83735; 83880; 84484; 85025; 85347; 92928; 92929; 93005; 93010; 93458; 93798; 96360; 96361; 96372; 99152; C1725; C1769; C1874; C1887; C9600; C9601; G0378; J0583; J1644; J1650; J2001; J2250; J2270; J2720; J3010; Q9967

== ENCOUNTER 2019-02-22 22:20 | Inpatient (IN) | payer BC ==
--- NOTE | 2019-02-22 22:38 | RAD ---
Frontal radiograph chest: 02/22/2019 COMPARISON: 01/05/2019 HISTORY: Myocardial infarction FINDINGS: Stable heart and mediastinal contours. No pneumothorax. New pulmonary vascular congestion. New perihilar and bibasilar interstitial prominence with new bibasilar airspace disease. IMPRESSION: Findings suggesting interval development of interstitial and alveolar pulmonary edema. In fection or aspiration within the lung bases cannot be excluded. Follow-up imaging following treatment advised.
[2019-02-22 22:40] LABS: #Basophils 0.1 thou/uL (0.0-0.2); #Eosinphils 0.4 thou/uL (0.0-0.7); #Lymphocytes 1.4 thou/uL (1.20-3.40); #Monocytes 0.6 thou/uL (0.11-0.59); #Neutrophils 9.2 thou/uL (1.40-6.50); %Basophils 0.5 % (0.0-1.0); %Eosinophils 3.6 % (0.0-10.0); %Lymphocytes 11.9 % (21.0-51.0); %Monocytes 5.1 % (0.0-10.0); %Neutrophils 78.9 % (42.0-75.0); Hemoglobin 11.8 g/dL (12.0-16.0); Mean Corpuscular HGB CONC 33.2 g/dL (32.0-36.0); Mean Corpuscular Hemoglobin 24.8 pg (27.0-31.0); Mean Corpuscular Volume 74.8 fL (78.0-98.0); Mean Platelet Volume 7.6 fL (7.4-10.4); Platelet Count 309 thou/uL (130-400); RBC Distribution Width 14.2 % (11.5-14.5); Red Blood Cell (RBC) Count 4.76 mill/uL (4.20-5.40); White Blood Cell (WBC) Count 11.7 thou/uL (4.8-10.8)
[2019-02-22 22:46] LABS: INR-International Normal Ratio 1.1; Prothrombin Time 13.9 SEC (12.0-14.7)
[2019-02-22 22:47] LABS: PTT 45.1 SEC (22.9-36.1)
[2019-02-22] MEDS ORDERED: Midazolam HCl 2 mg/2 ml Vial ONE (23:10)
[2019-02-22 23:11] LABS: ALT (SGPT) 17 U/L (8-55); AST (SGOT) 47 U/L (5-34); Albumin 3.3 g/dL (3.5-5.0); Alkaline Phosphatase 99 U/L (40-150); Anion Gap 10 mmol/L (10-20); BUN (Urea Nitrogen) 17 mg/dL (7.0-18.7); Bilirubin, Total 0.3 mg/dL (0.2-1.2); Calc. Creatinine Clearance 0 mL/min (70-130); Calcium 9.3 mg/dL (7.8-10.44); Carbon Dioxide 24 mmol/L (22-29); Chloride 106 mmol/L (98-107); Estimated GFR-MDRD 56; Globulin 3.7 g/dL (2.4-3.5); Glucose 73 mg/dL (70-105); Lipase 26 U/L (8-78); Potassium 3.9 mmol/L (3.5-5.1); Sodium 136 mmol/L (136-145)
[2019-02-22] MEDS ORDERED: Aggrastat 12.5 MG/250 ML 250 ML ONE (23:20)
[2019-02-22 23:26] LABS: CKMB 24.3 ng/mL (0-6.6)
[2019-02-23] MEDS ORDERED: Aspirin 81 mg Enteric Coated Tablet ONE (00:01)
[2019-02-23] MEDS ORDERED: Heparin 10,000 UNITS/ 10 ML VIAL ONE (00:01)
[2019-02-23] MEDS ORDERED: TICAGRELOR 90 MG TABLET ONE (00:06)
[2019-02-23] MEDS ORDERED: Aggrastat 12.5 MG/250 ML 12.5 MG in Premix Bag 1 BAG IVPB SCH (01:04)
[2019-02-23] MEDS ORDERED: Dextrose 5% in Water 1,000 ML IV PRN (01:11)
[2019-02-23] MEDS ORDERED: Dextrose 50% Abboject 50 ML SYRINGE IVP PRN (01:11)
--- NOTE | 2019-02-23 01:12 | HP ---
ADMITTING DIAGNOSIS: Acute anterior myocardial infarction. HISTORY OF PRESENT ILLNESS: This 48-year-old female with multiple risk factors for coronary artery disease, has undergone stent placements in the past both to the LAD, the diagonal branch and also to the obtuse marginal branch of the left circumflex. She had a non ST-segment elevation LA in November of 2018 just recently. She had recurrent chest pain in January. She was in the hospital on the 03 of January, was discharged, then came back after she had some further discomfort. She then was taken back to the cardiac labor operator, at that time underwent stent placements to the diagonal branch and to an obtuse marginal branch of left circumflex. Since that time, she had been doing relatively well, but presented again this evening after she had been having chest pain for several hours at home. It started sometime yesterday and she was in the hospital and said the pain was very similar to what she had previously with her myocardial infarction and also with her stent placements and she was advised to be taken the emergency room. There, it was noted that she did have a new onset right bundle-branch block and continued to have some discomfort. Enzymes are still pending at the time of dictation. She was advised to undergo a repeat cardiac catheterization for evaluation of the coronary arteries and to rule out evidence of in-stent restenoses or thrombosis. PAST MEDICAL HISTORY: Significant for the coronary artery disease as well as diabetes, hypertension, hypercholesterolemia. FAMILY HISTORY: Noncontributory. SOCIAL HISTORY: She has no history of alcohol or tobacco abuse. ALLERGIES: NONE. MEDICATIONS: Included: 1. Lisinopril. 2. Insulin. 3. Imitrex. 4. Atorvastatin. 5. Isosorbide. 6. Coreg. 7. Furosemide. 8. Potassium. 9. Tramadol. 10. She was also taking Ranexa. She actually was discharged on these medications after her last admission. She was also taking; 1. Insulin. 2. Zoloft. 3. Amlodipine 10 mg daily. 4. Plavix 75 mg daily. 5. Isosorbide mononitrate 60 mg. 6. Hydralazine 25 mg t.i.d. 7. Coreg was 6.25 mg b.i.d. 8. Zetia 10 mg daily. 9. Furosemide 40 mg daily. 10. Nitroglycerin as needed. 11. Potassium. 12. Tramadol. REVIEW OF SYSTEMS: Essentially the 12-point review of systems is relatively unremarkable except for what is noted with the chest discomfort, recent nausea and some vomiting today and her usual complaints on the review of systems. She is overweight. She had no neurological, GI complaints except for the recent nausea. No complaints and no neurological complaints. PHYSICAL EXAMINATION: GENERAL: Reveals an obese female, who continues to have some chest discomfort. VITAL SIGNS: Her blood pressure is 140/56. O2 saturations more than 95%, this is on 2 L in the emergency room, heart rates in the 70s, this shows a right bundle-branch block on the EKG, respiratory rate is 22. HEENT: Showed the head to be normocephalic and atraumatic. Carotid pulses are present without any bruits. CHEST: Actually clear to auscultation without rales, rhonchi, or wheezing. CARDIOVASCULAR: Reveals a regular rate and rhythm. She has normal S1, S2. I cannot hear any significant murmurs, heaves, thrills, bruits, or rubs. ABDOMEN: Obese. She has positive bowel sounds. I could not palpate any tenderness. EXTREMITIES: Femoral pulses are present, the right is slightly decreased. The left has improved. Extremities showed 1+ lower extremity edema. Pedal pulses are present. NEUROLOGIC: She appeared to be fully intact. IMAGING: EKG shows a right bundle-branch block with some nonspecific EKG changes. Given the fact that the patient has just recently undergone stent placement, has had significant chest pain again, very similar to what she had in the past and appears to have some acute anterior myocardial infarction due to the EKG changes and her symptoms. She will be advised to undergo an emergent cardiac catheterization. I have explained to her the procedure and the risks to include bleeding, infection, possible myocardial infarction, CVA, renal insufficiency, allergic contrast reaction. We will proceed with emergent contrast reaction. OVERALL IMPRESSION: 1. Acute anterior myocardial infarction, as noted we will take her to the cardiac labor operator. 2. Diabetes. This will be dealt with hopefully by the primary care service. We will ask them to help with the care of the patient while she is in the hospital. 3. History of hypercholesterolemia. We will resume her Lipitor. She may be a candidate for injectable cholesterol medications such as Praluent. 4. Morbid obesity. She does not appear to have lost any weight since her last admissions. We will continue to follow the patient throughout the hospital course. Dr. Matute will resume her care on Sunday. At this time, she will be taken to the cardiac labor operator under emergent basis. Job ID: [id number]
[2019-02-23 01:18] LABS: Actual Bicarbonate (HCO3a) 21.5 mEq/L (22-28); Base Excess (BEa) -4.2 mEq/L (-2.0 to +3.0); CO2 Tension 41.5 mmHg (35.0-45.0); Calcium, Ionized 1.12 mmol/L (1.12-1.30); Carboxyhemoglobin (COHb) 0.9 gm% (0.0-3.0); Hemoglobin (Hb) 11.4 g/dL (12.0-16.0); Potassium - ABG Lab 3.93 mmol/L (3.70-5.30); pH, Arterial 7.33 (7.35-7.45)
[2019-02-23 01:22] LABS: ALV-art Gradient -67.155 (0-20); O2 Tension (PaO2) 43.8 mmHg (80.0-100.0); Puncture Site ALINE
[2019-02-23] MEDS ORDERED: Furosemide 40 MG/4 ML VIAL ONE (01:27)
[2019-02-23] MEDS ORDERED: Furosemide 40 MG/4 ML VIAL SLOW IVP SCH (01:30)
[2019-02-23] MEDS: Nitroglycerin 0.4 MG TAB (25 Tab Bottle) SL PRN ×4 (01:52→19:20)
[2019-02-23] MEDS: Morphine 2 MG/ML SYRINGE SLOW IVP PRN ×5 (02:13→23:38)
[2019-02-23 05:10] LABS: #Eosinphils 0.1 thou/uL (0.0-0.7); #Lymphocytes 1.2 thou/uL (1.20-3.40); #Monocytes 0.5 thou/uL (0.11-0.59); #Neutrophils 8.9 thou/uL (1.40-6.50); %Basophils 0.3 % (0.0-1.0); %Eosinophils 1.3 % (0.0-10.0); %Lymphocytes 11.2 % (21.0-51.0); %Monocytes 4.6 % (0.0-10.0); %Neutrophils 82.7 % (42.0-75.0); Hemoglobin 10.6 g/dL (12.0-16.0); Mean Corpuscular HGB CONC 33.6 g/dL (32.0-36.0); Mean Corpuscular Hemoglobin 25.1 pg (27.0-31.0); Mean Corpuscular Volume 74.7 fL (78.0-98.0); Platelet Count 337 thou/uL (130-400); RBC Distribution Width 14.2 % (11.5-14.5); White Blood Cell (WBC) Count 10.8 thou/uL (4.8-10.8)
[2019-02-23 05:33] LABS: ALT (SGPT) 20 U/L (8-55); AST (SGOT) 71 U/L (5-34); Albumin 2.9 g/dL (3.5-5.0); Alkaline Phosphatase 85 U/L (40-150); Anion Gap 12 mmol/L (10-20); BUN (Urea Nitrogen) 17 mg/dL (7.0-18.7); Bilirubin, Total 0.4 mg/dL (0.2-1.2); Calc. Creatinine Clearance 123 mL/min (70-130); Calcium 8.7 mg/dL (7.8-10.44); Carbon Dioxide 23 mmol/L (22-29); Chloride 106 mmol/L (98-107); Estimated GFR-MDRD 56; Globulin 3.4 g/dL (2.4-3.5); Glucose 155 mg/dL (70-105); Protein, Total 6.3 g/dL (6.0-8.3); Sodium 137 mmol/L (136-145)
[2019-02-23] MEDS: HumaLOG 300 UNITS/3 ML VIAL SC PRN ×4 (05:47→21:20)
[2019-02-23] MEDS ORDERED: Furosemide 40 MG TAB PO SCH (09:00)
[2019-02-23] MEDS: Amlodipine 5 MG TAB PO SCH (09:02)
[2019-02-23] MEDS: Potassium Chloride 20 MEQ TAB PO SCH (09:02)
[2019-02-23] MEDS: Atorvastatin Calcium 40 MG TAB PO SCH (09:03)
[2019-02-23] MEDS: Carvedilol 6.25 MG TAB PO SCH ×2 (09:03→21:03)
[2019-02-23] MEDS: Aspirin Chewable 81 MG TAB PO SCH (09:03)
[2019-02-23] MEDS: TICAGRELOR 90 MG TABLET PO SCH ×2 (09:04→21:04)
[2019-02-23] MEDS ORDERED: Atropine Sulfate 1 mg/10 ml Syringe ONE (09:40)
[2019-02-23 10:57] LABS: #Eosinphils 0.1 thou/uL (0.0-0.7); #Lymphocytes 1.2 thou/uL (1.20-3.40); #Monocytes 0.6 thou/uL (0.11-0.59); #Neutrophils 9.5 thou/uL (1.40-6.50); %Basophils 0.2 % (0.0-1.0); %Eosinophils 1.1 % (0.0-10.0); %Lymphocytes 10.9 % (21.0-51.0); %Neutrophils 82.9 % (42.0-75.0); Hemoglobin 11.6 g/dL (12.0-16.0); Mean Corpuscular HGB CONC 33.2 g/dL (32.0-36.0); Mean Corpuscular Hemoglobin 25.1 pg (27.0-31.0); Mean Corpuscular Volume 75.7 fL (78.0-98.0); Mean Platelet Volume 7.6 fL (7.4-10.4); Platelet Count 336 thou/uL (130-400); RBC Distribution Width 14.2 % (11.5-14.5); Red Blood Cell (RBC) Count 4.62 mill/uL (4.20-5.40); White Blood Cell (WBC) Count 11.4 thou/uL (4.8-10.8)
--- NOTE | 2019-02-23 11:21 | CON ---
DATE OF CONSULTATION: HISTORY OF PRESENT ILLNESS: Yuli Hayes is a 48-year-old morbidly obese female, who was admitted to the ICU last night following chest pain. Emergency cardiac cath done by Cardiology. She had been in and out of the hospital here numerous times. She had known history of multiple cardiac stents placed in the past apparently in the LAD. She underwent a repeat cardiac cath to review Dr. Oliveira' note, Cardiology. In the ICU, she is awake, alert, and responsive. She is having some difficulty with breathing, but denies any coughing or wheezing. She is a nonsmoker. She has a history of sleep apnea, unable to get a CPAP machine due to financial reasons. PAST MEDICAL HISTORY: Diabetes, hypertension, high cholesterol, and coronary artery disease. PREVIOUS SURGERIES: Outlined including multiple stents. Surgery in the right side of the neck. Some tumor in the neck was removed years ago, benign. HOME MEDICATIONS: 1. Tramadol. 2. Insulin. 3. Lisinopril. 4. Ranexa. 5. Hydralazine. 6. Zoloft. 7. Aspirin. 8. Imitrex. 9. Imdur. 10. Plavix. 11. Zetia. 12. Coreg. 13. Potassium. ALLERGIES: NONE. SOCIAL AND FAMILY HISTORY: Otherwise, unremarkable. PHYSICAL EXAMINATION: VITAL SIGNS: Sats are 95 on a non-rebreather, blood pressure 113/80. GENERAL: Awake and responsive. CHEST: Minimal wheezing. No rhonchi. CARDIAC: Normal S1, S2. No gallops. ABDOMEN: No mass. LABORATORY DATA: White count 10,000, H and H 10 and 30, and platelet count is normal. PO2 is 43, pCO2 is hypoxemia. X-ray shows bilateral pulmonary infiltrates. Creatinine is normal. Troponin is elevated. IMPRESSION: Acute coronary syndrome, abnormal chest x-ray, pneumonia versus congestive heart failure, sleep apnea, diabetes, hypertension, and coronary artery disease. PLAN: Nocturnal BiPAP is initiated. Hopefully, we will try and get a formal sleep study on outpatient basis starting empiric antibiotics, supportive care. Pulmonary will follow while in the ICU. Consultation note, 70 minutes, 50% direct patient care. Job ID: [id number]
[2019-02-23 11:23] LABS: Critical Call Chem Troponin I RESULT DECREASING
[2019-02-23 15:08] LABS: #Eosinphils 0.1 thou/uL (0.0-0.7); #Lymphocytes 1.1 thou/uL (1.20-3.40); #Monocytes 0.4 thou/uL (0.11-0.59); #Neutrophils 9.5 thou/uL (1.40-6.50); %Basophils 0.3 % (0.0-1.0); %Eosinophils 0.9 % (0.0-10.0); %Lymphocytes 9.7 % (21.0-51.0); %Monocytes 3.9 % (0.0-10.0); %Neutrophils 85.2 % (42.0-75.0); Hemoglobin 10.6 g/dL (12.0-16.0); Mean Corpuscular HGB CONC 32.7 g/dL (32.0-36.0); Mean Corpuscular Hemoglobin 24.7 pg (27.0-31.0); Mean Corpuscular Volume 75.6 fL (78.0-98.0); Mean Platelet Volume 7.8 fL (7.4-10.4); Platelet Count 350 thou/uL (130-400); RBC Distribution Width 14.3 % (11.5-14.5); White Blood Cell (WBC) Count 11.1 thou/uL (4.8-10.8)
[2019-02-23] MEDS: Acetaminophen 325 MG TAB PO PRN (15:52)
[2019-02-23 20:13] LABS: Bilirubin Negative (Negative); Blood, Urine 2+ (Negative); Clarity Clear (Clear); Glucose, Urine (Dipstick) 70 mg/dL (Negative); Leukocyte Negative Leu/uL (Negative); Nitrite Negative (Negative); Protein, Urine (Dipstick) 300 mg/dL (Neg-Trace); Squamous Epithelial 0-3 HPF (0-3); Urobilinogen Normal mg/dL (Less than 2)
[2019-02-23 20:23] LABS: Bacteria/HPF 1+ HPF (None Seen); RBC/HPF 21-50 HPF (0-3)
[2019-02-23 20:26] LABS: Urine Culture Reflex Yes Yes
[2019-02-23] MEDS ORDERED: Ondansetron PF 4 MG/2 ML Vial SLOW IVP PRN (20:46)
[2019-02-23] MEDS: Cefepime 1 GM in Sodium Chloride 0.9% 100 ML IVPB SCH (21:05)
[2019-02-23 21:25] LABS: #Eosinphils 0.1 thou/uL (0.0-0.7); #Lymphocytes 1.4 thou/uL (1.20-3.40); #Monocytes 0.5 thou/uL (0.11-0.59); #Neutrophils 9.5 thou/uL (1.40-6.50); %Basophils 0.2 % (0.0-1.0); %Eosinophils 0.7 % (0.0-10.0); %Lymphocytes 12.3 % (21.0-51.0); %Monocytes 4.7 % (0.0-10.0); %Neutrophils 82.2 % (42.0-75.0); Hemoglobin 10.8 g/dL (12.0-16.0); Mean Corpuscular HGB CONC 32.2 g/dL (32.0-36.0); Mean Corpuscular Hemoglobin 24.4 pg (27.0-31.0); Mean Corpuscular Volume 75.8 fL (78.0-98.0); Mean Platelet Volume 7.2 fL (7.4-10.4); Platelet Count 313 thou/uL (130-400); RBC Distribution Width 14.4 % (11.5-14.5); Red Blood Cell (RBC) Count 4.44 mill/uL (4.20-5.40); White Blood Cell (WBC) Count 11.6 thou/uL (4.8-10.8)
[2019-02-24] MEDS: HumaLOG 300 UNITS/3 ML VIAL SC PRN (06:25)
[2019-02-24] MEDS: Morphine 2 MG/ML SYRINGE SLOW IVP PRN (06:50)
--- NOTE | 2019-02-24 08:31 | CON ---
DATE OF CONSULTATION: CHIEF COMPLAINT: Chest pain. HISTORY OF PRESENT ILLNESS: Ms. Hayes is a very pleasant 48-year-old female with past medical history of coronary artery disease with multiple stents placed, hypertension, diabetes mellitus, hyperlipidemia, and elevated BMI, who presents with worsening acute onset of chest pain. The patient with recent cardiac catheterization and has had recent stent placement. With the patient's concerning symptoms of chest pain with acute stent placement, there was concern for acute stent thrombosis and Cardiology consultation was requested, please see full consultation and progress notes for details. Cardiology recommending emergent cardiac catheterization, which was performed on 02/22/2019 - please see full cath report for details. It was confirmed that the patient did have acute stent thrombosis and several attempts of balloon angioplasty were performed. The patient was transferred to the intensive care unit on Brilinta and Aggrastat IV therapy. I find the patient in the Intensive Care Unit. She is lying flat and is still complaining of chest discomfort and shortness of breath. The patient is calm and cooperative and answering questions appropriately. We will continue to follow as Internal Medicine consultation made as able. REVIEW OF SYSTEMS: A 10-point review of systems was performed and negative aside from what mentioned in the history of present illness. PAST MEDICAL HISTORY: 1. Coronary artery disease with multiple stents placed recently in the past. 2. Hypertension. 3. Hyperlipidemia. 4. Diabetes mellitus. 5. Elevated BMI. 6. Depression. 7. Migraines. HOME MEDICATIONS: 1. Potassium chloride 20 mEq one tablet p.o. daily. 2. Nitrostat 0.4 mg one tablet p.o. q.5 minutes p.r.n. chest pain. 3. Lasix 40 mg one tablet p.o. daily. 4. Zetia 10 mg one tablet p.o. daily. 5. Coreg 6.25 mg one tablet p.o. b.i.d. 6. Isosorbide mononitrate 60 mg one tablet p.o. daily. 7. Plavix 75 mg one tablet p.o. daily. 8. Imitrex one tablet p.o. p.r.n. migraine. 9. Atorvastatin 80 mg one tablet p.o. daily. 10. Aspirin 81 mg one tablet p.o. daily. 11. Amlodipine 5 mg one tablet p.o. daily. 12. Sertraline 100 mg one tablet p.o. daily. 13. Humalog short-acting insulin 15 units subcutaneous injection t.i.d. 14. Levemir 60 units subcutaneous daily. 15. Hydralazine one tablet p.o. t.i.d. 16. Ranexa 1000 mg one tablet p.o. b.i.d. 17. Lisinopril 10 mg one tablet p.o. daily. 18. Tramadol 50 mg one tablet p.o. t.i.d. ALLERGIES: NO KNOWN DRUG ALLERGIES. PHYSICAL EXAMINATION: VITAL SIGNS: Temperature 98.0, pulse 91, O2 saturation 98% on 2 L nasal cannula, blood pressure 96/67, and respirations 18. GENERAL: The patient is alert and oriented and cooperative with history and physical. The patient in no apparent distress. HEENT: Head is normocephalic and atraumatic. Pupils are equally round and reactive to light and accommodation. Extraocular muscles intact. Vision is grossly intact. There are no appreciated exudates or erythema on the tonsils. CARDIAC: S1 and S2 present. No appreciated murmurs, rubs, or gallops. LUNGS: Lungs are clear to auscultation bilaterally. No appreciated wheezing, rales, or rhonchi. ABDOMEN: Soft, nontender, and nondistended without focal guarding or rigidity. No appreciated masses or abdominal bruits. MUSCULOSKELETAL: There is adequate alignment of the spine. Range of motion of the spine and extremities are grossly intact. No appreciated joint erythema or tenderness. Lower extremities; there is 1+ edema in bilateral lower extremities without erythema or signs of cellulitis. NEUROLOGIC: Cranial nerves II through XII are grossly intact. Strength and sensation are symmetric and intact. SKIN: Color is normal, texture, and turgor. No appreciated lesions or rashes. PSYCHIATRIC: The patient is alert and oriented x3 with fair insight into clinical condition. The patient's affect is normal. No abnormal behaviors or hallucinations. LABORATORY DATA: WBC 11.7, RBC 4.7, hemoglobin 11.8, hematocrit 35.6, MCV 74.8, and platelets 309. PT 13.9, INR 1.1, and PTT 45.1. Sodium 136, potassium 3.9, chloride 106, carbon dioxide 24, anion gap of 10, BUN 17, creatinine 1.05, estimated GFR 56, glucose 73, calcium 9.3, total bilirubin 0.3, AST 47, ALT 17, ad alkaline phosphatase 99. Troponin 14.9. Serum total protein 7.0, albumin 3.3, globulin 3.7, and lipase 26. RADIOGRAPHIC IMAGING: Chest x-ray; impression, findings suggesting interval development of interstitial and alveoli pulmonary edema. ASSESSMENT AND PLAN: 1. Chest pain - secondary to acute stent thrombosis, status post cardiac catheterization with balloon angioplasty. The patient admitted to the Intensive Care Unit on Aggrastat drip. The patient has failed Plavix and she states that she has been compliant with aspirin/Plavix regimen. Escalation of therapy required. Modifiable disease risk factors including control of diabetes and weight loss need to be further addressed. Cholesterol control. Cardiology consultation, recommendations appreciated. 2. Shortness of breath - secondary to above. 3. Coronary artery disease with history of recent stent placement. 4. Insulin-dependent diabetes mellitus - uncontrolled. 5. Hypertension. 6. Hyperlipidemia. 7. Elevated BMI. 8. Migraines. Job ID: [id number]
[2019-02-24] MEDS ORDERED: Furosemide 40 MG TAB PO SCH (09:00)
[2019-02-24] MEDS ORDERED: Furosemide 40 MG/4 ML VIAL SLOW IVP SCH ×2 (09:00→10:30)
[2019-02-24] MEDS: Carvedilol 6.25 MG TAB PO SCH ×2 (09:39→21:37)
[2019-02-24] MEDS: Atorvastatin Calcium 40 MG TAB PO SCH (09:39)
[2019-02-24] MEDS: Aspirin Chewable 81 MG TAB PO SCH (09:39)
[2019-02-24] MEDS: Potassium Chloride 20 MEQ TAB PO SCH (09:40)
[2019-02-24] MEDS: Amlodipine 5 MG TAB PO SCH (09:40)
[2019-02-24] MEDS ORDERED: HYDROcodone/Acetaminophen 5/325 mg Tablet PO PRN (09:40)
[2019-02-24] MEDS: TICAGRELOR 90 MG TABLET PO SCH ×2 (09:41→21:36)
[2019-02-24] MEDS: Cefepime 1 GM in Sodium Chloride 0.9% 100 ML IVPB SCH ×2 (09:47→21:35)
--- NOTE | 2019-02-24 09:48 | RAD ---
EXAM: Single view of the chest HISTORY: CHF COMPARISON: 02/22/2019 FINDINGS: Single view of the chest shows a normal sized cardiomediastinal silhouette. Multifocal opa cities are seen in the lungs no pleural effusion is seen. The bones are unremarkable. IMPRESSION: Multifocal pneumonia
--- NOTE | 2019-02-24 09:53 | PRG ---
DATE OF SERVICE: 02/24/2019 SUBJECTIVE: Yuli Hayes, this morning, is awake, alert, and responsive. Very hypoxic on a non-rebreather. She was placed on high-flow. OBJECTIVE: VITAL SIGNS: Saturations are 92, blood pressure 90/69, pulse 70, and respirations 18. CHEST: Decreased breath sounds. No wheezing. CARDIAC: Normal S1 and S2. No gallops. ABDOMEN: No masses. LABORATORY DATA: White count is 11,000, H and H of 10 and 30, and platelet count normal. Blood sugar 145. ASSESSMENT: 1. Respiratory failure, status post emergency cardiac cath. 2. Coronary artery disease. 3. Morbid obesity. 4. Diabetes. 5. Severe hypoxemia. PLAN: It is unclear why she is hypoxic, considering a chest x-ray did not show obvious pneumonia, it is felt to be fluid. We will continue diuretics. We will follow. Nocturnal CPAP. Job ID: [id number]
[2019-02-24] MEDS: Insulin Glargine 30 UNITS in Pre-Filled Syringe 1 EACH SC SCH ×2 (10:57→21:36)
[2019-02-24] MEDS: Insulin Regular 300 UNITS/3 ML VIAL SC PRN ×3 (11:32→21:38)
[2019-02-24 11:55] LABS: Anion Gap 19 mmol/L (10-20); BUN (Urea Nitrogen) 38 mg/dL (7.0-18.7); Calc. Creatinine Clearance 46 mL/min (70-130); Calcium 8.6 mg/dL (7.8-10.44); Carbon Dioxide 17 mmol/L (22-29); Chloride 98 mmol/L (98-107); Estimated GFR-MDRD 18; Glucose 415 mg/dL (70-105); Potassium 5.5 mmol/L (3.5-5.1); Sodium 128 mmol/L (136-145)
--- NOTE | 2019-02-24 13:56 | PDOC.HOSPP ---
- Subjective Subjective: Patient seen and examined. Patient requiring highflown nasal cannula to maintain O2 saturation. Patient on clear liquid diet having blood sugars in the 400s. Patient with no nausea or vomiting. Will advance patient to DM/ cardiac diet. Restart long-acting insulin. Increase sliding-scale coverage. Patient still with chest pain. Now with back pain from laying in bed, will add oral medication for long-acting coverage. - Objective Vital Signs & Weight: Vital Signs (12 hours) Temp Pulse Resp BP Pulse Ox 02/24/19 13:23 109 H 25 H 93 L 02/24/19 11:00 98.3 F 02/24/19 09:40 111 H 02/24/19 09:39 117/83 02/24/19 08:20 91 L 02/24/19 08:00 89 L 02/24/19 07:00 97.8 F 02/24/19 06:20 111 H 20 93 L 02/24/19 04:00 98.8 F Weight Weight 264 lb 8.875 oz Most Recent Monitor Data Heart Rate from ECG 108 NIBP 88/64 NIBP BP-Mean 72 Respiration from ECG 38 SpO2 92 I&O: 02/23/19 02/24/19 02/25/19 06:59 06:59 06:59 Intake Total 179 1347 30 Output Total 0 1335 135 Balance 179 12 -105 Result Diagrams: 02/23/19 21:17 02/24/19 11:10 Additional Labs: Accuchecks 02/24/19 02/24/19 02/23/19 11:31 06:24 21:21 POC Glucose 398 H 405 H 396 H 02/23/19 02/23/19 16:53 13:57 POC Glucose 213 H 226 H Radiology Reviewed by me: Yes (CXR) Hospitalist ROS - Review of Systems All other systems reviewed; all pertinent +/- noted in HPI/Subj - Medication Medications: Active Medications Generic Name Dose Route Start Last Admin Trade Name Freq PRN Reason Stop Dose Admin Acetaminophen 325 mg 02/23/19 14:38 02/23/19 15:52 Tylenol PO 325 mg Q4H PRN Administration Headache/Fever or Pain Albuterol/Ipratropium 3 ml 02/23/19 13:00 02/24/19 13:23 Duoneb NEB 3 ml [id number] ANDREY Administration Aspirin 81 mg 02/23/19 09:00 02/24/19 09:39 Aspirin Chewable PO 81 mg DAILY ANDREY Administration Atorvastatin Calcium 80 mg 02/23/19 09:00 02/24/19 09:39 Lipitor PO 80 mg DAILY ANDREY Administration Carvedilol 6.25 mg 02/23/19 09:00 02/24/19 09:39 Coreg PO 6.25 mg BID ANDREY Administration Furosemide 40 mg 02/24/19 09:00 02/24/19 04:25 Lasix PO 40 mg DAILY ANDREY Administration Tirofiban/Sodium Chloride 12.5 250 mls @ 0 mls/hr 02/23/19 01:04 02/23/19 06: 47 mg/ Device IVPB 250 mls INF ANDREY Administration As Directed Cefepime HCl 1 gm/ Sodium 100 mls @ 200 mls/hr 02/23/19 21:00 02/24/19 09:47 Chloride IVPB 100 mls Q12HR ANDREY Administration Insulin Glargine 30 units/ 0.3 mls @ 0 mls/hr 02/24/19 09:00 02/24/19 10:57 Miscellaneous Medication SC 0.3 mls BID ANDREY Administration Insulin Human Regular 0 units 02/24/19 09:43 02/24/19 11:32 Humulin R SC 13 unit .AGGRESSIVE SLIDING PRN Administration Aggressive Sliding Scale Isosorbide Mononitrate 60 mg 02/23/19 09:00 02/24/19 09:40 Imdur PO 60 mg DAILY ANDREY Administration Morphine Sulfate 2 mg 02/23/19 01:11 02/24/19 06:50 Morphine SLOW IVP 2 mg Q4H PRN Administration CHEST PAIN (4-6) Nitroglycerin 0.4 mg 02/23/19 01:04 02/23/19 19:20 Nitrostat SL 0.4 mg Q5MIN PRN Administration Chest Pain Ondansetron HCl 4 mg 02/23/19 20:46 02/23/19 21:07 Zofran SLOW IVP 4 mg Q4H PRN Administration Nausea/Vomiting Potassium Chloride 20 meq 02/23/19 09:00 02/24/19 09:40 K-Dur PO 20 meq DAILY ANDREY Administration Ranolazine 1,000 mg 02/23/19 09:00 02/24/19 09:40 Ranexa PO 1,000 mg BID ANDREY Administration Sertraline HCl 100 mg 02/23/19 09:00 02/24/19 09:40 Zoloft PO 100 mg DAILY ANDREY Administration Sodium Chloride 10 ml 02/23/19 09:00 02/24/19 09:47 Flush - Normal Saline IVF 10 ml Q12HR ANDREY Administration Ticagrelor 90 mg 02/23/19 09:00 02/24/19 09:41 Brilinta PO 90 mg BID ANDREY Administration - Exam General Appearance: ill appearing Eye: anicteric sclera ENT: no oropharyngeal lesions, moist mucosa Neck: supple, symmetric, no lymphadenopathy Heart: no murmur, no gallops, no rubs Respiratory: no wheezes, no ronchi, rales (Decreased breath sounds secondary to body habitus and high flow NC, though faint rales heard) Gastrointestinal: soft, non-tender, non-distended, no guarding, no rigidity Skin: no rashes Neurological: cranial nerve grossly intact, normal sensation to touch Musculoskeletal: generalized weakness Psychiatric: normal affect, A&O x 3 Hosp A/P (1) Coronary stent thrombosis Code(s): T82.867A - THROMBOSIS DUE TO CARDIAC PROSTH DEV/GRFT, INITIAL ENCOUNTER Status: Acute (2) Acute respiratory failure Code(s): J96.00 - ACUTE RESPIRATORY FAILURE, UNSP W HYPOXIA OR HYPERCAPNIA Status: Acute (3) DM type 2, uncontrolled, with neuropathy Code(s): E11.40 - TYPE 2 DIABETES MELLITUS WITH DIABETIC NEUROPATHY, UNSP; E11.65 - TYPE 2 DIABETES MELLITUS WITH HYPERGLYCEMIA Status: Acute (4) Heart failure Code(s): I50.9 - HEART FAILURE, UNSPECIFIED Status: Acute Qualifiers: Heart failure type: combined systolic and diastolic Heart failure chronicity: acute Qualified Code(s): I50.41 - Acute combined systolic ( congestive) and diastolic (congestive) heart failure (5) NSTEMI (non-ST elevated myocardial infarction) Code(s): I21.4 - NON-ST ELEVATION (NSTEMI) MYOCARDIAL INFARCTION Status: Acute (6) Status post coronary artery stent placement Status: Acute (7) Anxiety and depression Code(s): F41.9 - ANXIETY DISORDER, UNSPECIFIED; F32.9 - MAJOR DEPRESSIVE DISORDER, SINGLE EPISODE, UNSPECIFIED Status: Chronic (8) CAD (coronary artery disease) Code(s): I25.10 - ATHSCL HEART DISEASE OF [place] CORONARY ARTERY W/O ANG PCTRS Status: Chronic Qualifiers: Coronary Disease-Associated Artery/Lesion type: [place] artery Associated angina: with unstable angina (9) Dyslipidemia Code(s): E78.5 - HYPERLIPIDEMIA, UNSPECIFIED Status: Chronic (10) HTN (hypertension) Code(s): I10 - ESSENTIAL (PRIMARY) HYPERTENSION Status: Chronic Qualifiers: (11) Chest discomfort Code(s): R07.89 - OTHER CHEST PAIN Status: Resolved (12) JOAQUIN (acute kidney injury) Code(s): N17.9 - ACUTE KIDNEY FAILURE, UNSPECIFIED Status: Acute - Plan Plan: intensive care unit cardiology consultation, recommendations appreciated nephrology consultation, recommendations appreciated pulmonology consultation, recommendations appreciated patient requiring highflown nasal cannula to maintain O2 saturation chest x-ray with volume overload versus pneumonia patient with normal WBC count., Afebrile, cultures negative to date patient with acute stent thrombosis who is on Agrenox and Brilenta therapy IV Lasix for volume overload cardiomyopathy regimen is able long and short acting insulin for glucose control advanced diet to diabetic /cardiac acute kidney injury may be secondary to contrast induced nephropathy continue home medications as able
[2019-02-24] MEDS: Morphine 4 MG/ML VIAL SLOW IVP PRN ×2 (16:43→23:01)
[2019-02-24 16:49] LABS: Creatinine, Urine 217.79 mg/dL (47-110); Sodium, Urine Less than 20 mmol/L (Not Available); Urea Nitrogen, Random Urine 149 mg/dl
[2019-02-24 17:01] LABS: Protein, Urine Random Quant 327 mg/dL (1-14)
--- NOTE | 2019-02-24 19:43 | CON ---
DATE OF CONSULTATION: 02/24/2019 REQUESTING PHYSICIAN: Linus Garcia DO REASON FOR CONSULTATION: Acute renal failure and hyperkalemia. HISTORY OF PRESENT ILLNESS: A 48-year-old obese female with known history of coronary artery disease, status post multiple stents; hypertension; diabetes mellitus; hyperlipidemia, admitted by Cardiology Service due to acute onset of chest pain. The patient had cardiac catheterization two days ago on February 22, 2019, during which she had both thrombectomy and chemical thrombolysis of in-stent stenosis. Post stent, the patient continued to have chest pain and had also developed worsening shortness of breath. On presentation, the patient had creatinine of 1.05, which has been stable since admission. However, earlier today, creatinine was noted to increased to 2.78 associated with hyperkalemia of 5.5, hence Nephrology consult. Review of cardiac cath record as well as vitals since admission showed that blood pressure has been on the low side, mostly around 100 and 110, but had dipped to 90s occasionally during cardiac cath. Also in the last 24 hours, blood pressure dipped further into 80s. The patient also developed worsening shortness of breath and also has received diuretics. Review of medical record showed that the patient had reduced EF of 40% to 45% with akinetic and hypokinetic segments. The echo was in November 2018. The patient is currently on high-flow oxygen and also admitted to bilateral leg swelling. There is no history of fever, chills, dysuria, nausea, vomiting, or change in bowel habit. The patient also denied NSAID use. The patient continued to have chest pain, which she currently rates at 7/10 with some improvement with analgesic use. PAST MEDICAL HISTORY: 1. Coronary artery disease, status post multiple stents and cardiac cath in the past. 2. Hypertension. 3. Hyperlipidemia. 4. Diabetes mellitus. 5. Obesity. 6. Depression. 7. Migraine headaches. PAST SURGICAL HISTORY: 1. Stent placement. 2. Cardiac cath. 3. Removal of right-sided neck mass. FAMILY HISTORY: Reviewed, but noncontributory. No history of premature coronary artery disease in family. SOCIAL HISTORY: The patient lives with family. Denied smoking, alcohol, or recreational drug use. ALLERGIES: NO KNOWN DRUG ALLERGIES REPORTED. HOME MEDICATIONS: 1. Amlodipine 10 mg p.o. daily. 2. Aspirin 81 mg p.o. daily. 3. Lipitor 80 mg p.o. daily. 4. Plavix 75 mg p.o. daily. 5. Humalog 15 units subcutaneously with meals. 6. Hydralazine 25 mg p.o. t.i.d. 7. Isosorbide mononitrate 60 mg p.o. daily. 8. Levemir 60 units subcutaneously daily. 9. Lisinopril 40 mg p.o. daily. 10. Sertraline 100 mg p.o. daily. 11. Imitrex 50 mg p.o. p.r.n. for headaches. 12. Tramadol 50 mg t.i.d. p.r.n. 13. Sublingual nitroglycerin p.r.n. 14. Carvedilol 6.25 p.o. b.i.d. 15. Zetia 10 mg p.o. daily. 16. Furosemide 40 mg p.o. daily. 17. Potassium chloride 20 mEq p.o. daily. 18. Ranexa 1000 mg p.o. b.i.d. CURRENT HOSPITAL MEDICATIONS: 1. Cefepime 1 g IV b.i.d. 2. Insulin Lantus 30 units subcutaneously b.i.d. 3. Amlodipine 5 mg p.o. daily. 4. Aspirin 81 mg p.o. daily. 5. Lipitor 80 mg p.o. daily. 6. Carvedilol 6.25 mg p.o. daily. 7. Lasix 40 mg IV daily. 8. DuoNeb 3 mL nebulization q.6 p.r.n. 9. Isosorbide mononitrate 60 mg p.o. daily. 10. Potassium chloride 20 mEq p.o. daily. 11. Ranexa 1000 mg p.o. b.i.d. 12. Zoloft 100 mg p.o. daily. 13. Brilinta 90 mg p.o. b.i.d. 14. Sublingual nitroglycerin 0.4 mg q.5 p.r.n. for chest pain. 15. Tylenol p.r.n. 16. Humalog sliding scale. 17. Morphine 4 mg q.4 p.r.n. REVIEW OF SYSTEMS: A 12-point review of system performed was negative other than pertinent positives and negatives included in the history of present illness. PHYSICAL EXAMINATION: VITAL SIGNS: Most current vitals showed temperature 98.1, pulse 105, respiratory rate 40, SpO2 of 96% on high-flow high humidity oxygen with FiO2 of 54%. Blood pressure is 109/69. GENERAL: Obese female, in [id number] respiratory and painful distress. Afebrile, anicteric, acyanotic. HEENT: Normocephalic and atraumatic. Oral mucosa is moist. NECK: Supple with good range of motion. No JVD appreciated. However, neck is short and thick. CARDIOVASCULAR: Regular rhythm, but tachycardic. Normal heart sounds 1 and 2. RESPIRATORY: Fair air entry bilaterally with bilateral crackles. No obvious rhonchi were appreciated. GI: Abdomen is obese, soft, nontender, nondistended with normal bowel sounds. EXTREMITIES: [id number] bilateral leg edema noted. No erythema appreciated. [employer]: Lethargic. Oriented to person and place. Cranial nerves 2 through 12 are grossly intact. The patient moves all extremities. DIAGNOSTIC DATA: BMP earlier today showed sodium 128, potassium 5.5, chloride 98, CO2 of 17, BUN 38, creatinine 2.78, glucose 415, calcium 8.6. There is no BMP today. Urinalysis on February 23 showed clear yellow urine with pH of 6.0, specific gravity of 1.041, urine protein of 300, negative ketones, nitrites, bilirubin, leukocyte esterase. Urine blood is 2+. Microscopy showed rbc 21 to 50 , wbc 4 to 6. Urine osmolality today is 240, serum osmolality is pending. Random urine protein is 327 mg/dL. Urine creatinine is 217.79 mg/dL. Urine sodium is less than 20, and urine urea nitrogen is 149 with calculated FENa of less than 0.20 and calculated fractional excretion of urea of 5. In the last 12 hours, the patient has only made 200 mL of urine despite diuretic therapy. Echocardiogram is pending at this time. ASSESSMENT: 1. Acute renal failure: This is most likely cardiorenal given associated pulmonary infiltrates and leg edema with hypotension. Acute tubular necrosis is another possibility given the patient has hypotension in the last 24 hours. Contrast-induced nephropathy is another concern given that today is day two post contrast study, however, fractional excretion of urea and sodium is small in line with prerenal etiology and the patient clearly has features of cardiac decompensation given bilateral pulmonary congestion and leg edema as well as respiratory distress and orthopnea. 2. Presumed cardiorenal syndrome. 3. Acute myocardial infarction. 4. Acute on chronic congestive heart failure. 5. Acute respiratory failure, most likely due to acute on chronic congestive heart failure. Despite chest x-ray showing pulmonary opacification, this is most likely fluid given that the patient was not requiring that amount of oxygen on presentation. Chest x-ray on presentation showed features of congestive heart failure. 6. Hyperkalemia: Due to acute kidney injury and potassium supplementation. 7. Hyponatremia: Most likely due to volume depletion with appropriate ADH secretion due to poor perfusion and intravascular contraction. PLAN: 1. Optimization of hemodynamics and improvement of cardiac function will help overall condition. With INR drop, diuresis will be effective, but at this time, diuretics will not be helpful. 2. We will also give Kayexalate 15 g to help with hyperkalemia in the interim. 3. We will follow plasma osmolality. 4. We will also get renal ultrasound to rule out any obstructive uropathy. 5. We will follow renal function. 6. Many thanks for involving us in the care of this patient. We will follow along with you. Job ID: [id number]
[2019-02-24] MEDS ORDERED: Lisinopril 10 MG TAB PO SCH (21:00)
[2019-02-25] MEDS: Morphine 4 MG/ML VIAL SLOW IVP PRN ×3 (02:56→14:44)
[2019-02-25 05:07] LABS: ALT (SGPT) 27 U/L (8-55); AST (SGOT) 57 U/L (5-34); Albumin 3.2 g/dL (3.5-5.0); Alkaline Phosphatase 82 U/L (40-150); Anion Gap 19 mmol/L (10-20); BUN (Urea Nitrogen) 50 mg/dL (7.0-18.7); Bilirubin, Total 0.5 mg/dL (0.2-1.2); Calc. Creatinine Clearance 34 mL/min (70-130); Carbon Dioxide 17 mmol/L (22-29); Cardiac Risk 6.1 (Less than 4.5); Chloride 97 mmol/L (98-107); Cholesterol 281 mg/dl (< 200 Desired); Estimated GFR-MDRD 13; Globulin 4.1 g/dL (2.4-3.5); Glucose 320 mg/dL (70-105); HDL Cholesterol 46 mg/dL (>60 Neg Risk); LDL Cholesterol, Calculated 177 mg/dL; Potassium 5.8 mmol/L (3.5-5.1); Protein, Total 7.3 g/dL (6.0-8.3); Sodium 127 mmol/L (136-145); Triglycerides 292 mg/dL (Less than 150)
[2019-02-25] MEDS: Insulin Regular 300 UNITS/3 ML VIAL SC PRN ×6 (06:55→23:13)
[2019-02-25] MEDS: Carvedilol 3.125 MG TAB PO SCH ×3 (08:00→17:00)
[2019-02-25] MEDS ORDERED: Calcium Gluconate 4.6 MEQ in Sodium Chloride 0.9% 100 ML IVPB SCH (08:15)
[2019-02-25] MEDS: DOBUTamine 500 mg/250 ml 250 ML IVPB SCH (08:30)
--- NOTE | 2019-02-25 08:57 | PRG ---
DATE OF SERVICE: 02/25/2019 SUBJECTIVE: A 48-year-old female with multiple comorbidities including coronary artery disease, status post multiple stents, admitted for acute NH, status post cardiac cath. Nephrology is seeing the patient for acute renal failure associated with hyperkalemia and volume overload as well as worsening respiratory status. Respiratory status worsened last night and the patient was started on BiPAP. Still making little or no urine. OBJECTIVE: VITAL SIGNS: Temperature 98.7, pulse 91, respiratory rate 26, SpO2 of 91%, and blood pressure 96/72. GENERAL: Obese, lethargic, middle-aged female, in mild respiratory distress. Afebrile. Anicteric. Acyanotic. HEENT: Normocephalic, atraumatic. CARDIOVASCULAR: Regular rhythm and rate with occasional ectopics. Normal heart sounds 1 and 2. RESPIRATORY: BiPAP transmitted breath sounds with some crackles. No rhonchi were appreciated. GASTROINTESTINAL: Obese, soft, nontender, and nondistended with normal bowel sounds. EXTREMITIES: [id number] bilateral leg edema noted. UROGENITAL: Smith catheter is in place. CENTRAL NERVOUS SYSTEM: The patient is lethargic, tries to wake up with stimulation, but not talking much. Moves all extremities. DIAGNOSTIC DATA: CMP today showed sodium 127, potassium 5.8, chloride 97, CO2 of 17, BUN 50, creatinine 3.74, glucose 320, calcium 9.0, total bilirubin 0.5, AST 57, ALT 27, alkaline phosphatase 82, total protein 7.3, albumin 3.2, and globulin 4.1. Of note, creatinine was 2.78 yesterday with potassium of 5.5. Urine osmolality yesterday was 301 with serum sodium of 128. Lipid panel this morning showed triglyceride 292, cholesterol 281, LDL 177, and HDL 46. Echocardiogram performed on February 24 showed severely depressed left ventricular function with EF of 25% to 30% with hypokinetic anteroseptal, anterolateral, and apical wall of the left ventricles. Left atrium is moderately dilated and there is moderate mitral regurgitation as well as severe tricuspid regurgitation. ASSESSMENT: 1. Acute renal failure: Most likely due to cardiorenal syndrome due to acute cardiac decompensation from acute myocardial infarction. Contribution from contrast-induced nephropathy given recent contrast study as well as acute tubular necrosis given prolonged hypoperfusion cannot be ruled out. However, fractional excretion of urea and sodium performed yesterday is more consistent with that of prerenal etiology. Repeat echo showed further reduction in left ventricular systolic function from 45 to 25 to 30. The patient also had volume overload with pulmonary congestion and leg swelling. Presumed cardiorenal syndrome. Possible acute tubular necrosis. Possible contrast-induced nephropathy. 2. Hyperkalemia: Potassium is 5.8 and increased from 5.5 yesterday. This most likely is due to acute kidney injury and metabolic acidosis. 3. Metabolic acidosis. 4. Hypervolemia with evidence of pulmonary congestion and leg edema. 5. Hyponatremia: This is pseudohyponatremia from hyperglycemia. Plasma osmolality yesterday was 301. 6. Acute respiratory failure with hypoxia: Due to acute cardiac decompensation with pulmonary congestion. 7. Bilateral pulmonary infiltrates: Due to pulmonary congestion. Infective etiology is unlikely. The patient does not have fever. 8. Acute myocardial infarction. 9. Intractable chest pain of cardiac etiology. 10. Uncontrolled diabetes mellitus. 11. Morbid obesity. PLAN: 1. Cardiology will be starting some inotropic agent with dobutamine. We will start diuretic therapy with a view to help in fluid overload. Hopefully, this will mobilize some fluid and improve respiratory status. It is also anticipated that with improved hemodynamics, renal function will start to improve. 2. We will give Kayexalate 30 g x1 as well as calcium gluconate given hyperkalemia. 3. We will change sliding-scale insulin from a.c. and at bedtime to q.4 hours with a view to improving glycemic control. 4. We will start sodium bicarbonate to help with metabolic acidosis. 5. Other treatment as per Cardiology, Pulmonary, and Critical Care and Primary Attending. 6. The patient remained critically ill with guarded prognosis. 7. We will follow along with you. Further recommendation to follow depending on hospital course and results of other diagnostic test. Job ID: [id number]
[2019-02-25] MEDS: Atorvastatin Calcium 40 MG TAB PO SCH (09:00)
[2019-02-25] MEDS: Cefepime 1 GM in Sodium Chloride 0.9% 100 ML IVPB SCH ×2 (09:00→20:08)
[2019-02-25] MEDS: Furosemide 40 MG/4 ML VIAL SLOW IVP SCH ×2 (09:00→20:08)
[2019-02-25] MEDS: Aspirin Chewable 81 MG TAB PO SCH (09:00)
[2019-02-25] MEDS: TICAGRELOR 90 MG TABLET PO SCH ×2 (09:00→20:10)
[2019-02-25] MEDS: Sodium Bicarbonate Tab 325 MG TAB PO SCH ×3 (09:00→20:09)
[2019-02-25] MEDS: Ezetimibe 10 MG TAB PO SCH (09:00)
[2019-02-25 09:23] LABS: Actual Bicarbonate (HCO3a) 16.9 mEq/L (22-28); Base Excess (BEa) -10.4 mEq/L (-2.0 to +3.0); Calcium, Ionized 1.15 mmol/L (1.12-1.30); Carboxyhemoglobin (COHb) 0.3 gm% (0.0-3.0); Hemoglobin (Hb) 10.3 g/dL (12.0-16.0); Potassium - ABG Lab 6.98 mmol/L (3.70-5.30)
[2019-02-25 09:53] LABS: Hemoglobin 9.8 g/dL (12.0-16.0); Mean Corpuscular HGB CONC 32.7 g/dL (32.0-36.0); Mean Corpuscular Volume 76.7 fL (78.0-98.0); Mean Platelet Volume 8.6 fL (7.4-10.4); Platelet Count 361 thou/uL (130-400); RBC Distribution Width 14.3 % (11.5-14.5); Red Blood Cell (RBC) Count 3.91 mill/uL (4.20-5.40); White Blood Cell (WBC) Count 22.5 thou/uL (4.8-10.8)
--- NOTE | 2019-02-25 10:03 | PRG ---
DATE OF SERVICE: 02/25/2019 SUBJECTIVE: This morning, the patient appears to be lethargic. OBJECTIVE: VITAL SIGNS: Respiratory _34_ 95% BiPAP, pulse 72, blood pressure 130/80. CHEST: Decreased breath sounds without any wheezing. CARDIAC: Normal S1 and S2. No gallops. ABDOMEN: No mass. ASSESSMENT: Multiorgan failure, morbid obesity, sleep apnea, congestive heart failure \cad, renal failure, hyponatremia. X-ray yesterday showed worsening bilateral pulmonary infiltrates. She is clearly more lethargic, worse this morning. X-ray and blood gas are being ordered. She may never require intubation. One-half hour of critical care time. Job ID: [id number] MTDD
--- NOTE | 2019-02-25 10:05 | RAD ---
CHEST ONE VIEW: HISTORY: Congestive heart failure. Respiratory insufficiency. COMPARISON: 02/24/2019 FINDINGS: Extensive bilateral alveolar nodular parenchymal changes throughout both lungs, evidence for extensiv e bilateral pneumonia versus nodular bilateral pulmonary edema. There is somewhat less inspiration th an on the prior study. IMPRESSION: Very extensive bilateral alveolar nodular opacity changes throughout both lungs. Slightly less inspir ation. Continue short term followup. POS: OFF
[2019-02-25 10:16] LABS: Band 12 % (5-11); Eosinophils 1 % (0-10); Lymphocytes 6 % (21-51); MDiff Complete? YES; Metamyelocyte 1 % (0-0); Microcytosis SLIGHT = 6-15 cells (100X) (0-5/hpf); Monocytes 2 % (0-10); Myelocyte 1 % (0-0); Neutrophil 77 % (42-75); Platelet Morphology Comment Appears Adequate; Polychromasia SLIGHT = 2-3 cells (100X) (0-2/hpf)
[2019-02-25 10:54] LABS: O2 Tension (PaO2) 58.2 mmHg (80.0-100.0); Puncture Site RRA; pH, Arterial 7.21 (7.35-7.45)
[2019-02-25] MEDS: Insulin Glargine 35 UNITS in Pre-Filled Syringe 1 EACH SC SCH ×2 (10:54→20:08)
--- NOTE | 2019-02-25 11:47 | PDOC.HOSPP ---
- Subjective Subjective: Seen and examined. Clinically worse. Requiring BiPAP to maintain O2 saturation. Chest x-ray worsen, now with volume overload. Patient may require intubation if she does not clinically improved. Anuric. Patient with multiorgan failure, prognosis guarded. - Objective Vital Signs & Weight: Vital Signs (12 hours) Temp Pulse Resp Pulse Ox 02/25/19 10:35 80 27 H 98 02/25/19 08:25 70 22 H 95 02/25/19 08:22 72 22 H 87 L 02/25/19 05:00 98.7 F 02/25/19 02:13 90 36 H 90 L 02/25/19 00:22 91 27 H 94 L Weight Weight 273 lb 13.026 oz Most Recent Monitor Data Heart Rate from ECG 91 NIBP 96/72 NIBP BP-Mean 80 Respiration from ECG 26 SpO2 91 I&O: 02/24/19 02/25/19 02/26/19 06:59 06:59 06:59 Intake Total 1347 350 Output Total 1335 345 Balance 12 5 Result Diagrams: 02/25/19 09:33 02/25/19 04:29 Additional Labs: Accuchecks 02/24/19 02/24/19 21:36 16:55 POC Glucose 346 H 379 H Radiology Reviewed by me: Yes (CXR) Hospitalist ROS - Review of Systems All other systems reviewed; all pertinent +/- noted in HPI/Subj - Medication Medications: Active Medications Generic Name Dose Route Start Last Admin Trade Name Freq PRN Reason Stop Dose Admin Acetaminophen 325 mg 02/23/19 14:38 02/23/19 15:52 Tylenol PO 325 mg Q4H PRN Administration Headache/Fever or Pain Albuterol/Ipratropium 3 ml 02/23/19 13:00 02/25/19 08:22 Duoneb NEB 3 ml [id number] ANDREY Administration Aspirin 81 mg 02/23/19 09:00 02/25/19 09:00 Aspirin Chewable PO Not Given DAILY [facility] Atorvastatin Calcium 80 mg 02/23/19 09:00 02/25/19 09:00 Lipitor PO Not Given DAILY ANDREY Carvedilol 3.125 mg 02/25/19 08:00 02/25/19 08:00 Coreg PO Not Given BID- ANDREY Ezetimibe 10 mg 02/25/19 09:00 02/25/19 09:00 Zetia PO Not Given DAILY [facility] Furosemide 40 mg 02/25/19 09:00 02/25/19 09:00 Lasix SLOW IVP Not Given BID [facility] Dobutamine HCl/Dextrose 250 mls @ 9.315 mls/hr 02/25/19 08:00 02/25/19 08:30 Dobutamine 500 Mg/250 Ml IVPB 250 mls INF ANDREY Administration Protocol 2.5 MCG/KG/MIN Calcium Gluconate 4.6 meq/ 110 mls @ 200 mls/hr 02/25/19 08:15 02/25/19 08:59 Sodium Chloride IVPB 02/25/19 12:00 110 mls NOW ANDREY Administration Insulin Glargine 35 units/ 0.35 mls @ 0 mls/hr 02/25/19 09:00 02/25/19 10:54 Miscellaneous Medication SC 0.35 mls BID [facility] Administration Insulin Human Regular 0 units 02/24/19 09:43 02/25/19 08:56 Humulin R SC 13 unit .AGGRESSIVE SLIDING PRN Administration Aggressive Sliding Scale Isosorbide Mononitrate 60 mg 02/23/19 09:00 02/25/19 09:00 Imdur PO Not Given DAILY [facility] Morphine Sulfate 4 mg 02/23/19 01:04 02/25/19 06:56 Morphine SLOW IVP 4 mg Q4H PRN Administration Chest Pain (7-10) Morphine Sulfate 2 mg 02/23/19 01:11 02/24/19 06:50 Morphine SLOW IVP 2 mg Q4H PRN Administration CHEST PAIN (4-6) Nitroglycerin 0.4 mg 02/23/19 01:04 02/23/19 19:20 Nitrostat SL 0.4 mg Q5MIN PRN Administration Chest Pain Ondansetron HCl 4 mg 02/23/19 20:46 02/23/19 21:07 Zofran SLOW IVP 4 mg Q4H PRN Administration Nausea/Vomiting Ranolazine 1,000 mg 02/23/19 09:00 02/25/19 09:00 Ranexa PO Not Given BID [facility] Sertraline HCl 100 mg 02/23/19 09:00 02/25/19 09:00 Zoloft PO Not Given DAILY [facility] Sodium Bicarbonate 650 mg 02/25/19 09:00 02/25/19 09:00 Bicarbonate, Sodium PO Not Given TID [facility] Sodium Chloride 10 ml 02/23/19 09:00 02/25/19 09:00 Flush - Normal Saline IVF Not Given Q12HR [facility] Ticagrelor 90 mg 02/23/19 09:00 02/25/19 09:00 Brilinta PO Not Given BID ANDREY - Exam General Appearance: NAD, awake alert Eye: anicteric sclera ENT: normocephalic atraumatic, no oropharyngeal lesions, moist mucosa Neck: supple, symmetric, no lymphadenopathy Heart: no murmur, no gallops, no rubs Respiratory: no wheezes, no ronchi, rales (Diffuse rales heard over BIPAP. Poor airmovement.), tachypneic Gastrointestinal: soft, non-tender, non-distended, normal bowel sounds, no guarding, no rigidity Extremities: 2+ LE edema Skin: no lesions, no rashes Neurological: cranial nerve grossly intact, normal sensation to touch Musculoskeletal: generalized weakness Psychiatric: oriented to person, somnolent Hosp A/P (1) Coronary stent thrombosis Code(s): T82.867A - THROMBOSIS DUE TO CARDIAC PROSTH DEV/GRFT, INITIAL ENCOUNTER Status: Acute (2) Acute respiratory failure Code(s): J96.00 - ACUTE RESPIRATORY FAILURE, UNSP W HYPOXIA OR HYPERCAPNIA Status: Acute (3) DM type 2, uncontrolled, with neuropathy Code(s): E11.40 - TYPE 2 DIABETES MELLITUS WITH DIABETIC NEUROPATHY, UNSP; E11.65 - TYPE 2 DIABETES MELLITUS WITH HYPERGLYCEMIA Status: Acute (4) Heart failure Code(s): I50.9 - HEART FAILURE, UNSPECIFIED Status: Acute Qualifiers: Heart failure type: combined systolic and diastolic Heart failure chronicity: acute Qualified Code(s): I50.41 - Acute combined systolic ( congestive) and diastolic (congestive) heart failure (5) NSTEMI (non-ST elevated myocardial infarction) Code(s): I21.4 - NON-ST ELEVATION (NSTEMI) MYOCARDIAL INFARCTION Status: Acute (6) Status post coronary artery stent placement Status: Acute (7) Anxiety and depression Code(s): F41.9 - ANXIETY DISORDER, UNSPECIFIED; F32.9 - MAJOR DEPRESSIVE DISORDER, SINGLE EPISODE, UNSPECIFIED Status: Chronic (8) CAD (coronary artery disease) Code(s): I25.10 - ATHSCL HEART DISEASE OF [place] CORONARY ARTERY W/O ANG PCTRS Status: Chronic Qualifiers: Coronary Disease-Associated Artery/Lesion type: [place] artery Associated angina: with unstable angina (9) Dyslipidemia Code(s): E78.5 - HYPERLIPIDEMIA, UNSPECIFIED Status: Chronic (10) HTN (hypertension) Code(s): I10 - ESSENTIAL (PRIMARY) HYPERTENSION Status: Chronic Qualifiers: (11) Chest discomfort Code(s): R07.89 - OTHER CHEST PAIN Status: Resolved (12) JOAQUIN (acute kidney injury) Code(s): N17.9 - ACUTE KIDNEY FAILURE, UNSPECIFIED Status: Acute - Plan Plan: intensive care unit cardiology consultation, recommendations appreciated nephrology consultation, recommendations appreciated pulmonology consultation, recommendations appreciated patient requiring BIPAP to maintain O2 saturation, may require intubation Cardiology starting inotrop with Dobutamine chest x-ray with volume overload - worse patient with normal WBC count., Afebrile, cultures negative to date patient with acute stent thrombosis who is on Aggrenox and Brilenta therapy IV Lasix for volume overload cardiomyopathy regimen as able long and short acting insulin for glucose control advanced diet to diabetic /cardiac acute kidney injury may be secondary to cardiorenal syndrome with contributing contrast induced nephropathy continue home medications as able
[2019-02-25] MEDS ORDERED: Furosemide 40 MG/4 ML VIAL SLOW IVP SCH (15:15)
[2019-02-25 21:02] LABS: Anion Gap 19 mmol/L (10-20); BUN (Urea Nitrogen) 67 mg/dL (7.0-18.7); Calc. Creatinine Clearance 28 mL/min (70-130); Calcium 9.2 mg/dL (7.8-10.44); Carbon Dioxide 18 mmol/L (22-29); Chloride 96 mmol/L (98-107); Estimated GFR-MDRD 10; Glucose 286 mg/dL (70-105); Potassium 5.5 mmol/L (3.5-5.1); Sodium 127 mmol/L (136-145)
[2019-02-25] MEDS ORDERED: Sodium Bicarbonate 150 MEQ in Dextrose 5% in Water 1,000 ML IV SCH (21:30)
[2019-02-25] MEDS: Furosemide 100 MG in Sodium Chloride 0.9% 90 ML IVPB SCH (21:38)
[2019-02-26] MEDS: Insulin Regular 300 UNITS/3 ML VIAL SC PRN ×5 (04:12→23:49)
[2019-02-26] MEDS: Furosemide 100 MG in Sodium Chloride 0.9% 90 ML IVPB SCH (04:43)
[2019-02-26] MEDS: DOBUTamine 500 mg/250 ml 250 ML IVPB SCH (05:33)
[2019-02-26 06:18] LABS: ALT (SGPT) 777 U/L (8-55); AST (SGOT) 658 U/L (5-34); Albumin 2.9 g/dL (3.5-5.0); Alkaline Phosphatase 126 U/L (40-110); Anion Gap 21 mmol/L (10-20); BUN (Urea Nitrogen) 70 mg/dL (7.0-18.7); Bilirubin, Total 0.5 mg/dL (0.2-1.2); Calc. Creatinine Clearance 34 mL/min (70-130); Calcium 8.9 mg/dL (7.8-10.44); Carbon Dioxide 14 mmol/L (22-29); Chloride 98 mmol/L (98-107); Estimated GFR-MDRD 12; Globulin 3.8 g/dL (2.4-3.5); Glucose 186 mg/dL (70-105); Magnesium 2.1 mg/dL (1.6-2.6); Phosphorus 5.1 mg/dL (2.3-4.7); Potassium 4.6 mmol/L (3.5-5.1); Protein, Total 6.7 g/dL (6.0-8.3); Sodium 128 mmol/L (136-145)
[2019-02-26 06:28] LABS: Hemoglobin 9.5 g/dL (12.0-16.0); Mean Corpuscular HGB CONC 33.2 g/dL (32.0-36.0); Mean Corpuscular Hemoglobin 24.3 pg (27.0-31.0); Mean Corpuscular Volume 73.2 fL (78.0-98.0); Mean Platelet Volume 8.7 fL (7.4-10.4); Platelet Count 229 thou/uL (130-400); RBC Distribution Width 14.3 % (11.5-14.5); White Blood Cell (WBC) Count 14.5 thou/uL (4.8-10.8)
[2019-02-26 06:42] LABS: Band 1 % (5-11); Hypochromia SLIGHT = 6-15 cells (100X) (0-5/hpf); Lymphocytes 1 % (21-51); MDiff Complete? YES; Monocytes 4 % (0-10); Neutrophil 94 % (42-75); Platelet Morphology Comment Appears Adequate; Polychromasia SLIGHT = 2-3 cells (100X) (0-2/hpf)
[2019-02-26] MEDS ORDERED: Sodium Bicarbonate 150 MEQ in Dextrose 5% in Water 1,000 ML IV SCH (07:46)
--- NOTE | 2019-02-26 08:32 | RAD ---
CHEST 1 VIEW: Date: 02/26/19 HISTORY: Respiratory failure. COMPARISON: 02/25/19. FINDINGS: Improving bilateral alveolar and interstitial edema. Stable cardiomegaly. Small bilateral pleural eff usions. IMPRESSION: Improvement in the appearance of the chest. Continue short-term follow-up. POS: SUSAN
--- NOTE | 2019-02-26 09:59 | PRG ---
DATE OF SERVICE: 02/26/2019 SUBJECTIVE: This morning, she is awake, alert, and responsive. X-ray looks surprisingly better. OBJECTIVE: VITAL SIGNS: Blood pressure 130/86, saturations 100%, respiratory rate 18, pulse 80. CHEST: Decreased breath sounds. Minimal crackles. CARDIAC: Normal S1, S2. No gallops. ABDOMEN: Massive. LABORATORY DATA: Creatinine is elevated 3.8, BUN 70. I's and O's have been negative. X-ray shows, improved. IMPRESSION: Congestive cardiomyopathy, coronary artery disease, morbid obesity, sleep apnea. PLAN: I am going to try and switch her to high-flow. She is still going to require nocturnal BiPAP. PT. Supportive care. She is on Dobutrex. We will follow. One-half hour of critical care time. Job ID: [id number]
[2019-02-26] MEDS: Carvedilol 3.125 MG TAB PO SCH ×2 (10:00→16:31)
[2019-02-26] MEDS: Aspirin Chewable 81 MG TAB PO SCH (10:00)
[2019-02-26] MEDS: TICAGRELOR 90 MG TABLET PO SCH ×2 (10:00→20:30)
[2019-02-26] MEDS: Ezetimibe 10 MG TAB PO SCH (10:00)
[2019-02-26] MEDS: Insulin Glargine 35 UNITS in Pre-Filled Syringe 1 EACH SC SCH ×2 (10:01→21:03)
--- NOTE | 2019-02-26 10:01 | PRG ---
DATE OF SERVICE: 02/26/2019 SERVICE: Nephrology. SUBJECTIVE: A 48-year-old female with coronary artery disease, admitted due to acute coronary syndrome as well as shortness of breath. The patient post cardiac cath developed worsening shortness of breath and edema as well as acute renal failure. Nephrology is following the patient for acute renal failure. The patient was started on dobutamine yesterday and urine output has improved with commencement of diuretics. She is more awake today; however, remained dependent on BiPAP. No fever or chills. Chest pain has subsided. OBJECTIVE: VITAL SIGNS: Temperature 98.5, pulse 86, respiratory rate 29, SpO2 of 100% on BiPAP, and blood pressure is 130/86. GENERAL: Obese female, in no obvious distress. Afebrile. Anicteric. Acyanotic. HEENT: Normocephalic and atraumatic. BiPAP mask is in place. CARDIOVASCULAR: Regular rhythm and rate with normal heart sounds one and two. RESPIRATORY: BiPAP transmitted breath sounds heard in all lung zones. Mildly decreased at both bases. No obvious rhonchi were appreciated. GI: Obese, soft, nontender, and nondistended with normal bowel sounds. EXTREMITIES: [id number] bilateral leg edema noted. UGS: Smith catheter is in place, draining some urine. 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 Answers simple question. Moves all extremities. DIAGNOSTIC DATA: CBC showed WBC count of 14.5, hemoglobin of 9.5, MCV of 73.2, and platelet of 229. CMP showed sodium 128, potassium 4.6, chloride 98, CO2 of 14, BUN 70, creatinine 3.89, glucose 186, calcium 8.9, phosphorus 5.1, magnesium 2.1, total bilirubin 0.5, AST 658, ALT 777, alkaline phosphatase 126, total bilirubin 6.7, albumin 2.9, and globulin 3.8. Chest x-ray showed improvement in bilateral alveolar and interstitial edema. Small bilateral effusion also were noted. ASSESSMENT: 1. Acute renal failure: This mostly due to cardiorenal with cardiogenic shock with possible contribution from contrast-induced nephropathy. Acute tubular necrosis is unlikely with improvement in renal function with better hemodynamics. 2. Hyperkalemia: Due to acute kidney injury. Improving with better hemodynamics and improving renal function. The patient also is on diuretics, which is helping. 3. Metabolic acidosis: Due to shock with acute kidney injury. 4. Hyponatremia: This is pseudohyponatremia. 5. Cardiogenic shock with acute kidney injury and hepatopathy. 6. Acute respiratory failure with hypoxia due to acute congestive heart failure with pulmonary congestion. 7. Volume overload due to congestive heart failure with pulmonary congestion. Chest x-ray showed improvement. Pneumonia is unlikely. 8. Acute myocardial infarction with acute systolic heart failure. 9. Worsening ischemic cardiomyopathy. 10. Uncontrolled diabetes mellitus. 11. Morbid obesity. 12. Acute metabolic encephalopathy. PLAN: 1. We will escalate diuretic therapy to improve volume status. We will start Lasix infusion at 20 mL per hour. 2. We will also start sodium bicarbonate infusion at 100 mL/h. 3. We will monitor intake and output as well as electrolytes. Other treatment as per other specialties and primary attending. Many thanks for involving us in the care of this patient. We will continue to follow along with you. Job ID: [id number]
[2019-02-26] MEDS: Sodium Bicarbonate Tab 325 MG TAB PO SCH ×3 (10:02→20:31)
[2019-02-26] MEDS: Morphine 4 MG/ML VIAL SLOW IVP PRN ×2 (10:26→16:27)
[2019-02-26] MEDS: ADMIXTURE FEE CHEMO IVPB SCH ×2 (12:13→18:21)
[2019-02-26] MEDS: SODIUM CHLORIDE 0.9% IVPB SCH ×2 (12:13→18:21)
[2019-02-26] MEDS: FUROSEMIDE IVPB SCH ×2 (12:13→18:21)
--- NOTE | 2019-02-26 14:53 | PDOC.HOSPP ---
- Subjective Encounter Date: 02/26/19 Encounter Time: 10:45 Subjective: Patient seen and examined. Mother bedside. No overnight events pt has chest discomfort and dyspnea - Objective Vital Signs & Weight: Vital Signs (12 hours) Temp Pulse Resp Pulse Ox 02/26/19 12:21 94 28 H 97 02/26/19 12:00 97.9 F 02/26/19 09:00 98.2 F 02/26/19 08:55 100 02/26/19 06:27 88 32 H 100 02/26/19 06:26 87 30 H 100 02/26/19 03:33 84 31 H 98 02/26/19 03:00 98.5 F Weight Weight 274 lb 7.608 oz Most Recent Monitor Data Heart Rate from ECG 93 NIBP 121/78 NIBP BP-Mean 92 Respiration from ECG 20 SpO2 95 I&O: 02/25/19 02/26/19 02/27/19 06:59 06:59 06:59 Intake Total 350 1428 460 Output Total 364 371 0986 Balance 5 862 -7361 Result Diagrams: 02/26/19 05:36 02/26/19 05:36 Additional Labs: Accuchecks 02/26/19 02/26/19 02/26/19 10:59 08:27 04:10 POC Glucose 194 H 196 H 209 H 02/25/19 02/25/19 02/25/19 23:15 20:00 16:18 POC Glucose 296 H 316 H 373 H 02/25/19 02/25/19 12:24 08:54 POC Glucose 407 H 391 H Radiology Reviewed by me: Yes (all test reviewed) EKG Reviewed by me: Yes Hospitalist ROS - Review of Systems Constitutional: reports: weakness. denies: fever, chills, sweats, malaise, other Respiratory: reports: shortness of breath, SOB with excertion. denies: cough, dry, hemoptysis, pleuritic pain, sputum, wheezing, other Cardiovascular: reports: chest pain, orthopnea, edema. denies: palpitations, paroxysmal noc. dyspnea, light headedness, other Gastrointestinal: denies: nausea, vomiting, abdominal pain, diarrhea, constipation, melena, hematochezia, other Genitourinary: denies: dysuria, frequency, incontinence, hematuria, retention, other Musculoskeletal: denies: neck pain, shoulder pain, arm pain, back pain, hand pain, leg pain, foot pain, other Skin: denies: rash, lesions, alex, bruising, other - Medication Medications: Active Medications Generic Name Dose Route Start Last Admin Trade Name Freq PRN Reason Stop Dose Admin Acetaminophen 325 mg 02/23/19 14:38 02/23/19 15:52 Tylenol PO 325 mg Q4H PRN Administration Headache/Fever or Pain Albuterol/Ipratropium 3 ml 02/23/19 13:00 02/26/19 12:21 Duoneb NEB 3 ml [id number] ANDREY Administration Aspirin 81 mg 02/23/19 09:00 02/26/19 10:00 Aspirin Chewable PO 81 mg DAILY ANDREY Administration Carvedilol 3.125 mg 02/25/19 08:00 02/26/19 10:00 Coreg PO 3.125 mg BID-WM ANDREY Administration Ezetimibe 10 mg 02/25/19 09:00 02/26/19 10:00 Zetia PO 10 mg DAILY ANDREY Administration Dobutamine HCl/Dextrose 250 mls @ 9.315 mls/hr 02/25/19 08:00 02/26/19 05:33 Dobutamine 500 Mg/250 Ml IVPB 250 mls INF ANDREY Administration Protocol 2.5 MCG/KG/MIN Insulin Glargine 35 units/ 0.35 mls @ 0 mls/hr 02/25/19 09:00 02/26/19 10:01 Miscellaneous Medication SC 0.35 mls BID ANDREY Administration Cefepime HCl 1 gm/ Sodium 100 mls @ 200 mls/hr 02/25/19 21:00 02/25/19 20:08 Chloride IVPB 100 mls 2100 ANDREY Administration Furosemide 100 mg/ 100 mls @ 20 mls/hr 02/26/19 07:46 02/26/19 12:13 Miscellaneous Medication 1 IVPB 100 mls units/ Sodium Chloride INF ANDREY Administration Insulin Human Regular 0 units 02/24/19 09:43 02/26/19 11:01 Humulin R SC 3 unit .AGGRESSIVE SLIDING PRN Administration Aggressive Sliding Scale Isosorbide Mononitrate 60 mg 02/23/19 09:00 02/26/19 10:00 Imdur PO 60 mg DAILY ANDREY Administration Morphine Sulfate 4 mg 02/23/19 01:04 02/26/19 10:26 Morphine SLOW IVP 4 mg Q4H PRN Administration Chest Pain (7-10) Morphine Sulfate 2 mg 02/23/19 01:11 02/24/19 06:50 Morphine SLOW IVP 2 mg Q4H PRN Administration CHEST PAIN (4-6) Nitroglycerin 0.4 mg 02/23/19 01:04 02/23/19 19:20 Nitrostat SL 0.4 mg Q5MIN PRN Administration Chest Pain Ondansetron HCl 4 mg 02/23/19 20:46 02/23/19 21:07 Zofran SLOW IVP 4 mg Q4H PRN Administration Nausea/Vomiting Ranolazine 1,000 mg 02/23/19 09:00 02/26/19 10:02 Ranexa PO Not Given BID [facility] Sertraline HCl 100 mg 02/23/19 09:00 02/26/19 10:00 Zoloft PO 100 mg DAILY ANDREY Administration Sodium Bicarbonate 650 mg 02/25/19 09:00 02/26/19 10:02 Bicarbonate, Sodium PO Not Given TID [facility] Sodium Chloride 10 ml 02/23/19 09:00 02/26/19 10:03 Flush - Normal Saline IVF Not Given Q12HR [facility] Ticagrelor 90 mg 02/23/19 09:00 02/26/19 10:00 Brilinta PO 90 mg BID ANDREY Administration - Exam General Appearance: NAD, awake alert Eye: PERRL, anicteric sclera ENT: normocephalic atraumatic, no oropharyngeal lesions Neck: supple, symmetric Heart: RRR, no rubs, murmur present, II/IV Respiratory: no wheezes, no ronchi Respiratory - other findings: basal rales+ Gastrointestinal: soft, non-tender, non-distended, normal bowel sounds Extremities: no clubbing, 2+ LE edema Skin: normal turgor, no lesions Neurological: cranial nerve grossly intact, normal sensation to touch, no focal deficits Musculoskeletal: normal tone, normal strength Psychiatric: normal affect, normal behavior Hosp A/P (1) NSTEMI (non-ST elevated myocardial infarction) Code(s): I21.4 - NON-ST ELEVATION (NSTEMI) MYOCARDIAL INFARCTION Status: Acute (2) Coronary stent thrombosis Code(s): T82.867A - THROMBOSIS DUE TO CARDIAC PROSTH DEV/GRFT, INITIAL ENCOUNTER Status: Acute Qualifiers: Encounter type: initial encounter Qualified Code(s): T82.867A - Thrombosis due to cardiac prosthetic devices, implants and grafts, initial encounter (3) JOAQUIN (acute kidney injury) Code(s): N17.9 - ACUTE KIDNEY FAILURE, UNSPECIFIED Status: Acute (4) Metabolic acidosis Code(s): E87.2 - ACIDOSIS Status: Acute (5) Transaminitis Code(s): R74.0 - NONSPEC ELEV OF LEVELS OF TRANSAMNS & LACTIC ACID DEHYDRGNSE Status: Acute (6) Acute respiratory failure Code(s): J96.00 - ACUTE RESPIRATORY FAILURE, UNSP W HYPOXIA OR HYPERCAPNIA Status: Acute Qualifiers: Respiratory failure complication: hypoxia Qualified Code(s): J96.01 - Acute respiratory failure with hypoxia (7) DM type 2, uncontrolled, with neuropathy Code(s): E11.40 - TYPE 2 DIABETES MELLITUS WITH DIABETIC NEUROPATHY, UNSP; E11.65 - TYPE 2 DIABETES MELLITUS WITH HYPERGLYCEMIA Status: Chronic (8) Anxiety and depression Code(s): F41.9 - ANXIETY DISORDER, UNSPECIFIED; F32.9 - MAJOR DEPRESSIVE DISORDER, SINGLE EPISODE, UNSPECIFIED Status: Chronic (9) CAD (coronary artery disease) Code(s): I25.10 - ATHSCL HEART DISEASE OF [place] CORONARY ARTERY W/O ANG PCTRS Status: Chronic Qualifiers: Coronary Disease-Associated Artery/Lesion type: [place] artery Associated angina: with unstable angina (10) DM type 2 (diabetes mellitus, type 2) Status: Chronic Qualifiers: Diabetes mellitus supervisor intermediates insulin use: with supervisor intermediates use (11) Dyslipidemia Code(s): E78.5 - HYPERLIPIDEMIA, UNSPECIFIED Status: Chronic (12) HTN (hypertension) Code(s): I10 - ESSENTIAL (PRIMARY) HYPERTENSION Status: Chronic Qualifiers: (13) Morbid obesity with BMI of 45.0-49.9, adult Code(s): E66.01 - MORBID (SEVERE) OBESITY DUE TO EXCESS CALORIES; Z68.42 - BODY MASS INDEX (BMI) 45.0-49.9, ADULT Status: Acute (14) Acute systolic heart failure, ACC/AHA stage C Code(s): I50.21 - ACUTE SYSTOLIC (CONGESTIVE) HEART FAILURE Status: Acute (15) Microcytic anemia Code(s): D50.9 - IRON DEFICIENCY ANEMIA, UNSPECIFIED Status: Chronic - Plan old records reviewed/req, plan discussed w/ family 02/26/19- continue dobutamine drib, continue lasix drip, continue bicarbonate, monitor labs, repeat labs tomorrow, medication reviewed as above, symptomatic treatment
[2019-02-26] MEDS: Sodium Bicarbonate 150 MEQ in Dextrose 5% in Water 1,000 ML IV SCH (18:21)
[2019-02-26] MEDS: Cefepime 1 GM in Sodium Chloride 0.9% 100 ML IVPB SCH (20:21)
[2019-02-27] MEDS: FUROSEMIDE IVPB SCH ×4 (03:49→20:02)
[2019-02-27] MEDS: ADMIXTURE FEE CHEMO IVPB SCH ×4 (03:49→20:02)
[2019-02-27] MEDS: SODIUM CHLORIDE 0.9% IVPB SCH ×4 (03:49→20:02)
[2019-02-27] MEDS: DOBUTamine 500 mg/250 ml 250 ML IVPB SCH (03:50)
[2019-02-27] MEDS: Insulin Regular 300 UNITS/3 ML VIAL SC PRN ×5 (05:17→19:42)
[2019-02-27 07:33] LABS: ALT (SGPT) 572 U/L (8-55); AST (SGOT) 265 U/L (5-34); Albumin 2.9 g/dL (3.5-5.0); Alkaline Phosphatase 127 U/L (40-110); Anion Gap 18 mmol/L (10-20); BUN (Urea Nitrogen) 61 mg/dL (7.0-18.7); Bilirubin, Total 0.6 mg/dL (0.2-1.2); Calc. Creatinine Clearance 75 mL/min (70-130); Calcium 8.5 mg/dL (7.8-10.44); Carbon Dioxide 25 mmol/L (22-29); Chloride 94 mmol/L (98-107); Estimated GFR-MDRD 31; Globulin 3.8 g/dL (2.4-3.5); Glucose 173 mg/dL (70-105); Iron 12 ug/dL (50-170); Iron Binding Capacity, Total 190 mcg/dL (265-497); Magnesium 1.9 mg/dL (1.6-2.6); Potassium 3.1 mmol/L (3.5-5.1); Protein, Total 6.7 g/dL (6.0-8.3); Sodium 134 mmol/L (136-145)
--- NOTE | 2019-02-27 08:11 | RAD ---
PORTABLE CHEST: COMPARISON: Prior day's study. HISTORY: Respiratory distress. FINDINGS: Heart size is enlarged. There is continued improvement in pulmonary edema changes. IMPRESSION: Cardiomegaly with almost complete resolution of pulmonary edema change. POS: GUILLEH
[2019-02-27] MEDS ORDERED: Sodium Bicarbonate 150 MEQ in Dextrose 5% in Water 1,000 ML IV SCH (08:55)
[2019-02-27] MEDS ORDERED: Potassium Chloride 20 MEQ TAB PO SCH (09:00)
--- NOTE | 2019-02-27 09:30 | PRG ---
DATE OF SERVICE: 02/27/2019 SUBJECTIVE: This morning, the patient is awake, alert, and responsive. She had marked respiratory distress last night, placed back on BiPAP. OBJECTIVE: VITAL SIGNS: Saturations are 100%, blood pressure 137/80, and respiratory rate 18. I's and O's have been consistently negative. CHEST: No wheezing or crackles. CARDIAC: Normal S1 and S2. No gallops. ABDOMEN: No masses. LABORATORY DATA: BUN is 61, creatinine is 1.75, and glucose is 182. X-ray shows much improvement in her CHF. ASSESSMENT AND PLAN: Respiratory failure, congestive heart failure, possibly pneumonia, morbid obesity, and sleep apnea, high-flow during the daytime and continuous positive airway pressure at nighttime. Continue cardiac care. Continue diuretics. PT and supportive care. One-half hour of critical care time. Job ID: [id number]
--- NOTE | 2019-02-27 09:46 | PRG ---
DATE OF SERVICE: 02/27/2019 SERVICE: Nephrology. SUBJECTIVE: A 48-year-old obese female with diabetes, hypertension, hyperlipidemia, and coronary artery disease, admitted due to acute coronary syndrome, status post cardiac cath with angioplasty. Nephrology is seeing the patient for acute renal failure. The patient also developed acute respiratory failure due to acute on chronic congestive heart failure. Clinically improved. Still BiPAP-dependent. Urine output has improved greatly in the last 24 hours with diuretic therapy. Swelling has subsided and the patient is more awake mentally and conversational. OBJECTIVE: VITAL SIGNS: Temperature 98.0, pulse 78, respiratory rate 27, SpO2 99% on BiPAP, blood pressure is 137/88. GENERAL: Obese female, in no obvious distress. Afebrile. Anicteric. Acyanotic. HEENT: Normocephalic, atraumatic. BiPAP is in place. NECK: Supple, nontender with no JVD. CARDIOVASCULAR: Regular rhythm and rate with normal heart sounds one and two. RESPIRATORY: Fair air entry bilateral, decreased at both bases with no obvious crackle or rhonchi. Some transmitted breath sounds, however, were noted. GASTROINTESTINAL: Obese, soft, nontender, nondistended with normal bowel sounds. EXTREMITIES: Grossly normal looking with no obvious edema or erythema. CENTRAL NERVOUS SYSTEM: Conscious, alert, oriented x3 with appropriate mental status. Cranial nerves 2 through 12 are grossly intact. The patient moves all extremities. DIAGNOSTIC DATA: CMP showed sodium 134, potassium 3.1, chloride 94, CO2 of 24, BUN 61, creatinine 1.75, glucose 173, calcium 8.5, magnesium 1.9, total bilirubin 0.6, AST 265, ALT 572, alkaline phosphatase 127, total protein 6.7, albumin 2.9, globulin 3.8. Iron chemistry showed serum iron 12, TIBC 190, iron saturation 6, ferritin 874. Chest x-ray showed cardiomegaly with almost complete resolution of pulmonary edema. ASSESSMENT: 1. Acute renal failure: Due to cardiorenal syndrome. Creatinine is improving with inotropic therapy and diuretics. 2. Acute respiratory failure due to pulmonary congestion from cardiac decompensation. Improving with diuretics and BiPAP. 3. Hypokalemia: This is due to improvement of renal function as well as that of metabolic acidosis. The patient had hyperkalemia earlier on, which has resolved. 4. Hyperkalemia: Resolved. 5. Anemia: Due to chronic disease as well as iron deficiency. 6. Acute combined systolic and diastolic heart failure. Improving with inotrope. 7. Volume overload with pulmonary congestion and leg edema, improved. 8. Acute myocardial infarction. Status post cardiac cath and angioplasty. PLAN: 1. Decrease sodium bicarb to 50 mL/h. Restart oral sodium bicarb therapy. We will discontinue sodium bicarb infusion after current bag. 2. We will continue Lasix infusion for today with a view to transitioning to oral diuretics later today or tomorrow morning. 3. Inotropic therapy as per Cardiology. 4. Replete serum potassium with potassium chloride. 5. Monitor renal function. Other treatment as per other specialties. Job ID: [id number]
[2019-02-27] MEDS: Insulin Glargine 35 UNITS in Pre-Filled Syringe 1 EACH SC SCH ×2 (10:20→21:13)
[2019-02-27] MEDS: Sodium Bicarbonate 150 MEQ in Dextrose 5% in Water 1,000 ML IV SCH (10:20)
[2019-02-27] MEDS: Iron, Sodium Ferric Gluconate 250 MG in Sodium Chloride 0.9% 100 ML IVPB SCH ×2 (10:21→22:26)
[2019-02-27] MEDS: Sodium Bicarbonate Tab 325 MG TAB PO SCH ×3 (10:23→20:00)
[2019-02-27] MEDS: Cefdinir 300 MG CAP PO SCH ×2 (10:24→20:00)
[2019-02-27] MEDS: TICAGRELOR 90 MG TABLET PO SCH ×2 (10:25→20:03)
[2019-02-27] MEDS: Aspirin Chewable 81 MG TAB PO SCH (10:26)
[2019-02-27] MEDS: Carvedilol 3.125 MG TAB PO SCH ×2 (10:26→17:06)
[2019-02-27] MEDS: Ezetimibe 10 MG TAB PO SCH (10:28)
--- NOTE | 2019-02-27 10:56 | PDOC.HOSPP ---
- Subjective Encounter Date: 02/27/19 Encounter Time: 10:00 Subjective: pt has subjective dyspnea, reports chest discomfort, no overnight event - Objective Vital Signs & Weight: Vital Signs (12 hours) Temp Pulse Resp Pulse Ox 02/27/19 08:00 100 02/27/19 07:00 98 F 02/27/19 06:52 80 30 H 100 02/27/19 06:49 81 16 100 02/27/19 04:00 97.8 F 02/27/19 02:31 80 21 H 100 02/27/19 00:29 81 34 H 99 02/27/19 00:00 98.4 F Weight Weight 268 lb 8.368 oz Most Recent Monitor Data Heart Rate from ECG 78 NIBP 137/88 NIBP BP-Mean 104 Respiration from ECG 31 SpO2 99 I&O: 02/26/19 02/27/19 02/28/19 06:59 06:59 06:59 Intake Total 1428 3194 220 Output Total 640 4150 450 Balance 788 -956 -230 Result Diagrams: 02/26/19 05:36 02/27/19 06:55 Additional Labs: Accuchecks 02/27/19 02/26/19 02/26/19 05:18 23:51 20:12 POC Glucose 182 H 210 H 187 H 02/26/19 02/26/19 16:26 10:59 POC Glucose 201 H 194 H Radiology Reviewed by me: Yes (chest xray showed improvement) EKG Reviewed by me: Yes Hospitalist ROS - Review of Systems Constitutional: reports: weakness, malaise. denies: fever, chills, sweats, other Respiratory: reports: shortness of breath, SOB with excertion. denies: cough, dry, hemoptysis, pleuritic pain, sputum, wheezing, other Cardiovascular: denies: chest pain, palpitations, orthopnea, paroxysmal noc. dyspnea, edema, light headedness, other Gastrointestinal: denies: nausea, vomiting, abdominal pain, diarrhea, constipation, melena, hematochezia, other Genitourinary: denies: dysuria, frequency, incontinence, hematuria, retention, other Musculoskeletal: denies: neck pain, shoulder pain, arm pain, back pain, hand pain, leg pain, foot pain, other Skin: denies: rash, lesions, alex, bruising, other - Medication Medications: Active Medications Generic Name Dose Route Start Last Admin Trade Name Mikelq PRN Reason Stop Dose Admin Acetaminophen 325 mg 02/23/19 14:38 02/23/19 15:52 Tylenol PO 325 mg Q4H PRN Administration Headache/Fever or Pain Hydrocodone Bitart/Acetaminophen 1 tab 02/24/19 09:40 02/26/19 20:47 [place] 5/325 PO 1 tab Q4H PRN Administration Moderate Pain (4-6) Albuterol/Ipratropium 3 ml 02/23/19 13:00 02/27/19 06:49 Duoneb NEB 3 ml Q2VJ-WM ANDREY Administration Aspirin 81 mg 02/23/19 09:00 02/27/19 10:26 Aspirin Chewable PO 81 mg DAILY ANDREY Administration Carvedilol 3.125 mg 02/25/19 08:00 02/27/19 10:26 Coreg PO 3.125 mg BID-WM ANDREY Administration Cefdinir 300 mg 02/27/19 09:00 02/27/19 10:24 Omnicef PO 03/04/19 09:01 300 mg BID ANDREY Administration Ezetimibe 10 mg 02/25/19 09:00 02/27/19 10:28 Zetia PO 10 mg DAILY ANDREY Administration Dobutamine HCl/Dextrose 250 mls @ 9.315 mls/hr 02/25/19 08:00 02/27/19 03:50 Dobutamine 500 Mg/250 Ml IVPB 250 mls INF ANDRYE Administration Protocol 2.5 MCG/KG/MIN Insulin Glargine 35 units/ 0.35 mls @ 0 mls/hr 02/25/19 09:00 02/27/19 10:20 Miscellaneous Medication SC 0.35 mls BID ANDREY Administration Furosemide 100 mg/ 100 mls @ 20 mls/hr 02/26/19 07:46 02/27/19 10:24 Miscellaneous Medication 1 IVPB 100 mls units/ Sodium Chloride INF ANDREY Administration Ferric Sodium Gluconate 120 mls @ 60 mls/hr 02/27/19 09:00 02/27/19 10:21 Complex 250 mg/ Sodium IVPB 02/27/19 21:01 120 mls Chloride Q12HR ANDREY Administration Insulin Human Regular 0 units 02/24/19 09:43 02/27/19 10:29 Humulin R SC 3 unit .AGGRESSIVE SLIDING PRN Administration Aggressive Sliding Scale Isosorbide Mononitrate 60 mg 02/23/19 09:00 02/27/19 10:28 Imdur PO 60 mg DAILY ANDREY Administration Morphine Sulfate 4 mg 02/23/19 01:04 02/26/19 16:27 Morphine SLOW IVP 4 mg Q4H PRN Administration Chest Pain (7-10) Morphine Sulfate 2 mg 02/23/19 01:11 02/24/19 06:50 Morphine SLOW IVP 2 mg Q4H PRN Administration CHEST PAIN (4-6) Nitroglycerin 0.4 mg 02/23/19 01:04 02/23/19 19:20 Nitrostat SL 0.4 mg Q5MIN PRN Administration Chest Pain Ondansetron HCl 4 mg 02/23/19 20:46 02/23/19 21:07 Zofran SLOW IVP 4 mg Q4H PRN Administration Nausea/Vomiting Potassium Chloride 40 meq 02/27/19 09:00 02/27/19 10:33 K-Dur PO 02/27/19 12:00 40 meq NOW ANDREY Administration Ranolazine 1,000 mg 02/23/19 09:00 02/27/19 10:25 Ranexa PO 1,000 mg BID ANDREY Administration Sertraline HCl 100 mg 02/23/19 09:00 02/27/19 10:26 Zoloft PO 100 mg DAILY ANDREY Administration Sodium Bicarbonate 650 mg 02/25/19 09:00 02/27/19 10:23 Bicarbonate, Sodium PO 650 mg TID ANDREY Administration Sodium Chloride 10 ml 02/23/19 09:00 02/27/19 10:33 Flush - Normal Saline IVF 10 ml Q12HR ANDREY Administration Ticagrelor 90 mg 02/23/19 09:00 02/27/19 10:25 Brilinta PO 90 mg BID ANDREY Administration - Exam General Appearance: NAD, awake alert Eye: PERRL, anicteric sclera ENT: normocephalic atraumatic, no oropharyngeal lesions Neck: supple, symmetric, no JVD, no thyromegaly Heart: RRR, no murmur, no gallops Respiratory: CTAB, no wheezes, no rales Gastrointestinal: soft, non-tender, non-distended Extremities: no cyanosis, 1+ LE edema Skin: normal turgor, no lesions Neurological: cranial nerve grossly intact, normal sensation to touch, no weakness, no focal deficits Musculoskeletal: normal tone, normal strength Psychiatric: normal affect, normal behavior Hosp A/P (1) NSTEMI (non-ST elevated myocardial infarction) Code(s): I21.4 - NON-ST ELEVATION (NSTEMI) MYOCARDIAL INFARCTION Status: Acute (2) Coronary stent thrombosis Code(s): T82.867A - THROMBOSIS DUE TO CARDIAC PROSTH DEV/GRFT, INITIAL ENCOUNTER Status: Acute Qualifiers: Encounter type: initial encounter Qualified Code(s): T82.867A - Thrombosis due to cardiac prosthetic devices, implants and grafts, initial encounter (3) JOAQUIN (acute kidney injury) Code(s): N17.9 - ACUTE KIDNEY FAILURE, UNSPECIFIED Status: Acute (4) Metabolic acidosis Code(s): E87.2 - ACIDOSIS Status: Acute (5) Transaminitis Code(s): R74.0 - NONSPEC ELEV OF LEVELS OF TRANSAMNS & LACTIC ACID DEHYDRGNSE Status: Acute (6) Acute respiratory failure Code(s): J96.00 - ACUTE RESPIRATORY FAILURE, UNSP W HYPOXIA OR HYPERCAPNIA Status: Acute Qualifiers: Respiratory failure complication: hypoxia Qualified Code(s): J96.01 - Acute respiratory failure with hypoxia (7) DM type 2, uncontrolled, with neuropathy Code(s): E11.40 - TYPE 2 DIABETES MELLITUS WITH DIABETIC NEUROPATHY, UNSP; E11.65 - TYPE 2 DIABETES MELLITUS WITH HYPERGLYCEMIA Status: Chronic (8) Anxiety and depression Code(s): F41.9 - ANXIETY DISORDER, UNSPECIFIED; F32.9 - MAJOR DEPRESSIVE DISORDER, SINGLE EPISODE, UNSPECIFIED Status: Chronic (9) CAD (coronary artery disease) Code(s): I25.10 - ATHSCL HEART DISEASE OF [place] CORONARY ARTERY W/O ANG PCTRS Status: Chronic Qualifiers: Coronary Disease-Associated Artery/Lesion type: kaw artery Associated angina: with unstable angina (10) DM type 2 (diabetes mellitus, type 2) Status: Chronic Qualifiers: Diabetes mellitus detention insulin use: with director long term care use (11) Dyslipidemia Code(s): E78.5 - HYPERLIPIDEMIA, UNSPECIFIED Status: Chronic (12) HTN (hypertension) Code(s): I10 - ESSENTIAL (PRIMARY) HYPERTENSION Status: Chronic Qualifiers: (13) Morbid obesity with BMI of 45.0-49.9, adult Code(s): E66.01 - MORBID (SEVERE) OBESITY DUE TO EXCESS CALORIES; Z68.42 - BODY MASS INDEX (BMI) 45.0-49.9, ADULT Status: Acute (14) Acute systolic heart failure, ACC/AHA stage C Code(s): I50.21 - ACUTE SYSTOLIC (CONGESTIVE) HEART FAILURE Status: Acute (15) Microcytic anemia Code(s): D50.9 - IRON DEFICIENCY ANEMIA, UNSPECIFIED Status: Chronic - Plan old records reviewed/req 02/26/19- continue dobutamine drib, continue lasix drip, continue bicarbonate, monitor labs, repeat labs tomorrow, medication reviewed as above, symptomatic treatment 02/27/19- currently on dobutaime drip, IV lasix, today Iron infusion, renal function improving, overall see improvement, medication reviewed as above, symptomatic treatment.
[2019-02-27] MEDS: Morphine 4 MG/ML VIAL SLOW IVP PRN ×2 (12:48→19:43)
--- NOTE | 2019-02-27 14:22 | CON ---
DATE OF CONSULTATION: 02/27/2019 HISTORY OF PRESENT ILLNESS: I am seeing Ms. 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 Her problems are; 1. Acute on chronic systolic congestive heart failure. a. History of ischemic cardiomyopathy with prior myocardial infarction as well as stent thrombosis lead microinfarction on this admission. b. Reduced LVEF at 40% to 45%. on echo November 09, 2018 and 20% to 25% on current echo 02/24/2019, moderate MR, and severe TR. c. Status post repeated procedures starting in May 2018 with LAD stenting, DSA stenting of the LAD of a coronary in-stent restenosis in November 2018, stenting of first diagonal artery and circumflex in January 2019, and atherectomy and thrombectomy and PTCA of in-stent thrombosis of LAD stent on February 22, 2019. 2. Newly developed left bundle-branch block. 3. History of diabetes, hypertension, hypercholesteremia, and obesity. ALLERGIES: NONE. MEDICATIONS: At home included; 1. Lisinopril. 2. Insulin. 3. Imitrex. 4. Atorvastatin. 5. Isosorbide. 6. Coreg. 7. Furosemide. 8. Potassium. 9. Tramadol. 10. Ranexa. The patient is now taking also; 1. Amlodipine. 2. Plavix. 3. Isosorbide mononitrate. 4. Hydralazine. 5. Coreg. 6. Zetia. 7. Furosemide. SUBJECTIVE/HOSPITAL COURSE: Ms. Hayes was admitted on the with signs of acute stent thrombosis microinfarction, underwent thrombectomy and angioplasty procedure of the in-stent LAD stenosis as noted above. Subsequently, she was found to have a severe reduced LVEF and developed progressive heart failure like symptoms, newly found left bundle-branch block pattern was also noted. She required BiPAP and aggressive diuresis with mild improvement on this. She has been reasonably stable from the hemodynamic standpoint without major arrhythmias from mild sinus tachycardia. She does not pass out, not complaining of palpitations. She still denies to have PND or orthopnea. No current chest pains. Rest of 12-point review of system otherwise unremarkable. PAST MEDICAL HISTORY: As above. Also includes anxiety and depression. SOCIAL HISTORY: The patient denies smoking, EtOH, or drug abuse. FAMILY HISTORY: Not contributory. OBJECTIVE DATA: VITAL SIGNS: Blood pressure currently 137/88, heart rate is 78, respiratory rate is 31, oxygen saturation is 100% on high-flow oxygen. The in's and out's reveal negative balances for last two days, -200 mL over last 24 hours and a liter negative prior to that. She was presently positive before this. GENERAL: Alert, oriented, and obese woman, in no apparent distress. NECK: Supple. Jugular veins are difficult to visualize. CHEST: Coarse. No crackles. HEART: Sounds are regular to rate and rhythm. Distant heart sounds are noted. No significant murmur or gallop. ABDOMEN: Benign. Bowel sounds positive. EXTREMITIES: Lower extremities without edema, clubbing, or cyanosis. Pulses are adequate. NEUROLOGIC: The patient is nonfocal. MUSCULOSKELETAL: Without joint swelling or deformity. SKIN: Without rash. DATABASE: EKG is reviewed. Initial EKG reveal narrow complex EKG on January 05, 2019, no ST-T changes. EKG this admission though on 02/22/2019 reveals a mild vascular block with right bundle and left axis deviation, QRS duration 120 milliseconds. Subsequent EKGs also seen revealing atypical left bundle pattern. EKG on 02/23/2019 with QRS duration is 126 milliseconds, QTc is prolonged to 508 milliseconds. Subsequent EKG on 02/23 reveals full-blown left bundle-branch block with QRS duration of 176 milliseconds. On 02/25, she has even wider complexes noted at 172 milliseconds. LABORATORY DATA: Current white cell count is 14.5, hemoglobin 9.5, and platelet count is 229. Sodium 134, potassium 3.1, BUN is 61, and creatinine 1.75. The AST and ALT are 265 and 572. Troponin I's are 14, 36, and 27 on the and in q.8 hourly. Chest x-ray from 02/24/2019 shows cardiomegaly with improvement in her pulmonary edema. ASSESSMENT AND PLAN: Ms. Hayes is a 48-year-old woman with history of advanced coronary artery disease requiring repeat intervention including an episode of in-stent restenosis on relieved by thrombectomy and angioplasty. She developed progressive respiratory symptoms worsen despite of diuresis. Also developed progressive left bundle-branch block. She also required Dobutrex for inotropic support. Now she has reduced left ventricular ejection fraction. The EKG shows variable QRS width with development of wide QRS, left bundle branch block pattern on the 24th. Interestingly, her QRS seems to have improved since then. This variable QRS width could represent AV franklin/His bundle and Purkinje system territory ischemia. For now, no high grade AV block is seen nevertheless. This lady is in difficult situation with possible ongoing ischemia, advanced heart failure like symptoms, although her left ventricular ejection fraction is reduced. So far, no significant arrhythmias seen, but the variable AV block could put her at risk for development of complete AV block, but so far none of that seen. My plan would be to continue close monitoring for development of more advanced AV block, optimization of her heart failure and coronary status as per Dr. Matute. If no acute indication for pacing is seen, likely will need a [employer] terminal clerk and if LVEF remains reduced to 35% range or below, she may benefit from prophylactic ICD therapy. Left bundle-branch block pattern seems to be improving over last couple days. If worsens and heart failure difficult to control, more acute Bi-V pacing could be a consideration, although if this would be a last resort to measure heart failure. Discussed this issue with Dr. Matute. We will follow with you. Thank you for allowing me to participate in the care of this patient. Job ID: [id number]
[2019-02-27] MEDS ORDERED: Lidocaine 1% (PF) 30 ML VIAL ONE (15:12)
--- NOTE | 2019-02-27 15:47 | PDOC.OP ---
Operative Note - Operative Note Operative Note: INDICATION: Unable to obtain IV access Preforming resident: Alysa Abernathy MD PGY-2 Assisting Resident: Joelle Jauregui MD PGY-2 ATTENDING PHYSICIAN: Dr. Rl Archer CONSENT: Consent was obtained from patient prior to the procedure. Indications, risks, and benefits were explained at length. PROCEDURE SUMMARY: Surgical cap, mask with protective eyewear, full gown and sterile gloves worn throughout the procedure. The patient was placed in Trendelenburg position. RIGHT chest region was prepped using chlorhexidine scrub and draped in sterile fashion using a full drape and sterile probe cover employed. The medial and lateral heads of the sternocleidomastoid muscle were identified as was the carotid pulse. The Internal Jugular vein was identified using the ultrasound. Anesthesia was achieved over the vein using 1% lidocaine. Using real-time out of plane guidance, the introducer needle was inserted into the Internal Jugular vein under direct ultrasound visualization. Venous blood was withdrawn. The syringe was removed and a guidewire was advanced into the introducer needle. The guidewire was visualized in the Internal Jugular Vein by ultrasound. A small incision was made at the skin surface with a scalpel and the introducer needle was exchanged for a dilator over the guidewire. After appropriate dilation was obtained, the dilator was exchanged over the wire for a central venous catheter. The wire was removed and the catheter was sutured in place. Site was dressed appropriately. The patient tolerated the procedure without any hemodynamic compromise. At time of procedure completion, all ports aspirated and flushed properly. Post-procedure chest x-ray is pending at this time. Estimated blood loss is <10cc.
--- NOTE | 2019-02-27 16:00 | RAD ---
Portable upright frontal chest radiograph: 02/27/2019 COMPARISON: 02/26/2019 HISTORY: Evaluate chest following central line placement FINDINGS: Right-sided vascular catheter present, distal tip overlying the region of the proximal righ t atrium. Stable prominence of the cardiac silhouette. Stable prominence of the cardiac silhouette with perihilar interstitial prominence and pulmonary vascular congestion. No lobar consolidation. Pat henok airspace disease again noted in the left base. IMPRESSION: Stable pulmonary vascular congestion and interstitial density suggesting interstitial iman ma. Right-sided vascular catheter as detailed above.
[2019-02-27] MEDS: Potassium Chloride 20 MEQ TAB PO SCH (17:06)
[2019-02-27 17:43] LABS: Anion Gap 11 mmol/L (10-20); BUN (Urea Nitrogen) 57 mg/dL (7.0-18.7); Calc. Creatinine Clearance 88 mL/min (70-130); Calcium 8.1 mg/dL (7.8-10.44); Carbon Dioxide 31 mmol/L (22-29); Chloride 94 mmol/L (98-107); Estimated GFR-MDRD 37; Glucose 181 mg/dL (70-105); Potassium 3.2 mmol/L (3.5-5.1); Sodium 133 mmol/L (136-145)
[2019-02-28] MEDS: Insulin Regular 300 UNITS/3 ML VIAL SC PRN (00:06)
[2019-02-28] MEDS: SODIUM CHLORIDE 0.9% IVPB SCH ×2 (02:06→06:39)
[2019-02-28] MEDS: FUROSEMIDE IVPB SCH ×2 (02:06→06:39)
[2019-02-28] MEDS: ADMIXTURE FEE CHEMO IVPB SCH ×2 (02:06→06:39)
[2019-02-28 04:17] LABS: ALT (SGPT) 462 U/L (8-55); AST (SGOT) 169 U/L (5-34); Albumin 2.8 g/dL (3.5-5.0); Alkaline Phosphatase 121 U/L (40-110); Anion Gap 12 mmol/L (10-20); BUN (Urea Nitrogen) 56 mg/dL (7.0-18.7); Bilirubin, Total 0.6 mg/dL (0.2-1.2); Calc. Creatinine Clearance 88 mL/min (70-130); Calcium 8.4 mg/dL (7.8-10.44); Carbon Dioxide 33 mmol/L (22-29); Chloride 95 mmol/L (98-107); Estimated GFR-MDRD 37; Globulin 3.8 g/dL (2.4-3.5); Glucose 98 mg/dL (70-105); Magnesium 1.8 mg/dL (1.6-2.6); Potassium 3.5 mmol/L (3.5-5.1); Protein, Total 6.6 g/dL (6.0-8.3); Sodium 136 mmol/L (136-145)
[2019-02-28] MEDS ORDERED: Metolazone 5 MG TAB PO SCH (07:45)
[2019-02-28] MEDS ORDERED: SODIUM CHLORIDE 0.9% IVPB SCH (08:00)
[2019-02-28] MEDS ORDERED: FUROSEMIDE IVPB SCH (08:00)
[2019-02-28] MEDS ORDERED: ADMIXTURE FEE CHEMO IVPB SCH (08:00)
--- NOTE | 2019-02-28 08:13 | RAD ---
CHEST 1 VIEW: Date: 02/28/19 INDICATION: History of intubation. COMPARISON: Prior study dated 02/27/19 at 1521 hours. FINDINGS: Cardiomegaly and pulmonary vascular congestion with mild perihilar edema persists. Right IJ central v enous catheter is unchanged. Tiny suspected pleural effusion similar appearing. No pneumothorax evide nt. IMPRESSION: Stable exam. POS: BH
[2019-02-28] MEDS: Ezetimibe 10 MG TAB PO SCH (08:46)
[2019-02-28] MEDS: Cefdinir 300 MG CAP PO SCH ×2 (08:46→20:41)
[2019-02-28] MEDS: Aspirin Chewable 81 MG TAB PO SCH (08:46)
[2019-02-28] MEDS: Carvedilol 3.125 MG TAB PO SCH ×2 (08:47→17:33)
[2019-02-28] MEDS: Potassium Chloride 20 MEQ TAB PO SCH ×2 (08:47→17:33)
[2019-02-28] MEDS: TICAGRELOR 90 MG TABLET PO SCH ×2 (08:48→20:41)
[2019-02-28] MEDS: Insulin Glargine 35 UNITS in Pre-Filled Syringe 1 EACH SC SCH ×2 (08:48→21:23)
--- NOTE | 2019-02-28 09:02 | PRG ---
DATE OF SERVICE: 02/28/2019 SUBJECTIVE: This morning, she is awake, alert, and responsive. She is on CPAP last night, high-flow 4 L. This morning, less short of breath. OBJECTIVE: VITAL SIGNS: Pulse 88, blood pressure 101/68, respiratory rate 27. I's and O's are negative. CHEST: Decreased breath sounds. Bilateral crackles. CARDIAC: Normal S1, S2. No gallops. ABDOMEN: No masses. LABORATORY DATA: Liver function is better. Creatinine 1.49. ASSESSMENT AND PLAN: 1. Multiorgan failure. 2. Cardiomyopathy. 3. Coronary artery disease. 4. Renal failure. 5. Hepatic congestion. 6. Sleep apnea. 7. Severe deconditioning. Probably, can be switched over to oral Lasix as per Cardiology. PT, supportive care. We will follow. Job ID: [id number]
--- NOTE | 2019-02-28 09:37 | PDOC.HOSPP ---
- Subjective Encounter Date: 02/28/19 Encounter Time: 07:00 Subjective: pt is overall doing better, still she feels shortness of breath, denies chest pain, son bedside, - Objective Vital Signs & Weight: Vital Signs (12 hours) Temp Pulse Resp Pulse Ox 02/28/19 07:22 73 20 100 02/28/19 07:18 72 24 H 100 02/28/19 04:00 98.5 F 02/28/19 02:30 76 29 H 98 02/28/19 00:06 77 28 H 100 02/28/19 00:00 98.3 F 98 Weight Weight 268 lb 15.423 oz Most Recent Monitor Data Heart Rate from ECG 76 NIBP 130/82 NIBP BP-Mean 98 Respiration from ECG 24 SpO2 99 I&O: 02/27/19 02/28/19 03/01/19 06:59 06:59 06:59 Intake Total 3194 1550 Output Total 4150 2540 Balance -076 990 Result Diagrams: 02/26/19 05:36 02/28/19 03:45 Additional Labs: Accuchecks 02/28/19 02/28/19 02/28/19 08:58 03:50 00:05 POC Glucose 100 108 163 H 02/27/19 02/27/19 02/27/19 19:33 17:14 12:28 POC Glucose 214 H 199 H 246 H 02/27/19 08:37 POC Glucose 185 H Radiology Reviewed by me: Yes (chest xray reviewed ) EKG Reviewed by me: Yes (nsr) Hospitalist ROS - Review of Systems Constitutional: reports: weakness, malaise. denies: fever, chills, sweats, other ENT: denies: ear pain, ear discharge, nose pain, nose discharge, nose congestion , mouth pain, mouth swelling, throat pain, throat swelling, other Respiratory: reports: shortness of breath, SOB with excertion. denies: cough, dry, hemoptysis, pleuritic pain, sputum, wheezing, other Cardiovascular: reports: orthopnea. denies: chest pain, palpitations, paroxysmal noc. dyspnea, edema, light headedness, other Gastrointestinal: denies: nausea, vomiting, abdominal pain, diarrhea, constipation, melena, hematochezia, other Genitourinary: denies: dysuria, frequency, incontinence, hematuria, retention, other Musculoskeletal: denies: neck pain, shoulder pain, arm pain, back pain, hand pain, leg pain, foot pain, other Skin: denies: rash, lesions, alex, bruising, other - Medication Medications: Active Medications Generic Name Dose Route Start Last Admin Trade Name Freq PRN Reason Stop Dose Admin Acetaminophen 325 mg 02/23/19 14:38 02/23/19 15:52 Tylenol PO 325 mg Q4H PRN Administration Headache/Fever or Pain Hydrocodone Bitart/Acetaminophen 1 tab 02/24/19 09:40 02/26/19 20:47 [place] 5/325 PO 1 tab Q4H PRN Administration Moderate Pain (4-6) Albuterol/Ipratropium 3 ml 02/23/19 13:00 02/28/19 07:22 Duoneb NEB 3 ml [id number] ANDREY Administration Aspirin 81 mg 02/23/19 09:00 02/28/19 08:46 Aspirin Chewable PO 81 mg DAILY ANDREY Administration Carvedilol 3.125 mg 02/25/19 08:00 02/28/19 08:47 Coreg PO 3.125 mg BID-WM ANDREY Administration Cefdinir 300 mg 02/27/19 09:00 02/28/19 08:46 Omnicef PO 03/04/19 09:01 300 mg BID ANDREY Administration Ezetimibe 10 mg 02/25/19 09:00 02/28/19 08:46 Zetia PO 10 mg DAILY ANDREY Administration Dobutamine HCl/Dextrose 250 mls @ 9.315 mls/hr 02/25/19 08:00 02/27/19 03:50 Dobutamine 500 Mg/250 Ml IVPB 250 mls INF ANDREY Administration Protocol 2.5 MCG/KG/MIN Insulin Glargine 35 units/ 0.35 mls @ 0 mls/hr 02/25/19 09:00 02/28/19 08:48 Miscellaneous Medication SC 0.35 mls BID ANDREY Administration Insulin Human Regular 0 units 02/24/19 09:43 02/28/19 00:06 Humulin R SC 3 unit .AGGRESSIVE SLIDING PRN Administration Aggressive Sliding Scale Isosorbide Mononitrate 60 mg 02/23/19 09:00 02/28/19 08:47 Imdur PO 60 mg DAILY ANDREY Administration Morphine Sulfate 4 mg 02/23/19 01:04 02/27/19 19:43 Morphine SLOW IVP 4 mg Q4H PRN Administration Chest Pain (7-10) Morphine Sulfate 2 mg 02/23/19 01:11 02/24/19 06:50 Morphine SLOW IVP 2 mg Q4H PRN Administration CHEST PAIN (4-6) Nitroglycerin 0.4 mg 02/23/19 01:04 02/23/19 19:20 Nitrostat SL 0.4 mg Q5MIN PRN Administration Chest Pain Ondansetron HCl 4 mg 02/23/19 20:46 02/23/19 21:07 Zofran SLOW IVP 4 mg Q4H PRN Administration Nausea/Vomiting Potassium Chloride 40 meq 02/27/19 17:00 02/28/19 08:47 K-Dur PO 40 meq BID-WM ANDREY Administration Ranolazine 1,000 mg 02/27/19 21:00 02/27/19 20:00 Ranexa PO 1,000 mg BID ANDREY Administration Sertraline HCl 100 mg 02/23/19 09:00 02/28/19 08:47 Zoloft PO 100 mg DAILY ANDREY Administration Sodium Chloride 10 ml 02/23/19 09:00 02/27/19 20:03 Flush - Normal Saline IVF 10 ml Q12HR ANDREY Administration Ticagrelor 90 mg 02/23/19 09:00 02/28/19 08:48 Brilinta PO 90 mg BID ANDREY Administration - Exam General Appearance: NAD, awake alert Eye: PERRL, anicteric sclera ENT: normocephalic atraumatic, no oropharyngeal lesions Neck: supple, symmetric, no thyromegaly Heart: RRR, no murmur, no gallops, no rubs Respiratory: CTAB Respiratory - other findings: few scattered rales Gastrointestinal: soft, non-tender, non-distended, normal bowel sounds, no palpable masses Extremities: no cyanosis, no clubbing, 1+ LE edema Skin: normal turgor, no lesions Neurological: cranial nerve grossly intact, normal sensation to touch, no weakness, no focal deficits Musculoskeletal: normal tone, normal strength Psychiatric: normal affect, normal behavior Hosp A/P (1) NSTEMI (non-ST elevated myocardial infarction) Code(s): I21.4 - NON-ST ELEVATION (NSTEMI) MYOCARDIAL INFARCTION Status: Acute Plan: due to coronary stent thrombosis (2) Coronary stent thrombosis Code(s): T82.867A - THROMBOSIS DUE TO CARDIAC PROSTH DEV/GRFT, INITIAL ENCOUNTER Status: Acute Qualifiers: Encounter type: initial encounter Qualified Code(s): T82.867A - Thrombosis due to cardiac prosthetic devices, implants and grafts, initial encounter (3) Acute systolic heart failure, ACC/AHA stage C Code(s): I50.21 - ACUTE SYSTOLIC (CONGESTIVE) HEART FAILURE Status: Acute (4) JOAQUIN (acute kidney injury) Code(s): N17.9 - ACUTE KIDNEY FAILURE, UNSPECIFIED Status: Acute Plan: improving (5) Metabolic acidosis Code(s): E87.2 - ACIDOSIS Status: Resolved (6) Transaminitis Code(s): R74.0 - NONSPEC ELEV OF LEVELS OF TRANSAMNS & LACTIC ACID DEHYDRGNSE Status: Acute Plan: improving, due to passive congestion (7) Acute respiratory failure Code(s): J96.00 - ACUTE RESPIRATORY FAILURE, UNSP W HYPOXIA OR HYPERCAPNIA Status: Acute Qualifiers: Respiratory failure complication: hypoxia Qualified Code(s): J96.01 - Acute respiratory failure with hypoxia (8) DM type 2, uncontrolled, with neuropathy Code(s): E11.40 - TYPE 2 DIABETES MELLITUS WITH DIABETIC NEUROPATHY, UNSP; E11.65 - TYPE 2 DIABETES MELLITUS WITH HYPERGLYCEMIA Status: Chronic (9) Anxiety and depression Code(s): F41.9 - ANXIETY DISORDER, UNSPECIFIED; F32.9 - MAJOR DEPRESSIVE DISORDER, SINGLE EPISODE, UNSPECIFIED Status: Chronic (10) CAD (coronary artery disease) Code(s): I25.10 - ATHSCL HEART DISEASE OF [place] CORONARY ARTERY W/O ANG PCTRS Status: Chronic Qualifiers: Coronary Disease-Associated Artery/Lesion type: [place] artery Associated angina: with unstable angina (11) DM type 2 (diabetes mellitus, type 2) Status: Chronic Qualifiers: Diabetes mellitus custodial insulin use: with custodial use (12) Dyslipidemia Code(s): E78.5 - HYPERLIPIDEMIA, UNSPECIFIED Status: Chronic (13) HTN (hypertension) Code(s): I10 - ESSENTIAL (PRIMARY) HYPERTENSION Status: Chronic Qualifiers: (14) Morbid obesity with BMI of 45.0-49.9, adult Code(s): E66.01 - MORBID (SEVERE) OBESITY DUE TO EXCESS CALORIES; Z68.42 - BODY MASS INDEX (BMI) 45.0-49.9, ADULT Status: Acute (15) Microcytic anemia Code(s): D50.9 - IRON DEFICIENCY ANEMIA, UNSPECIFIED Status: Chronic - Plan old records reviewed/req, plan discussed w/ family 02/26/19- continue dobutamine drib, continue lasix drip, continue bicarbonate, monitor labs, repeat labs tomorrow, medication reviewed as above, symptomatic treatment 02/27/19- currently on dobutaime drip, IV lasix, today Iron infusion, renal function improving, overall see improvement, medication reviewed as above, symptomatic treatment. 02/28/19- now off dobutamine, continue lasix, continue brilinta, ranexa, renal and liver function continue to improve, now will need to reduce oxygen as tolerated, most likely she may need home oxygen, will need life vest, discussed with son, medication reviewed as above, symptomatic treatment
--- NOTE | 2019-02-28 11:42 | PDOC.CPN ---
- Subjective Date: 02/28/19 Time: 10:00 Interval history: EP PROGRESS NOTE: Newly diagnosed Atrial arrhythmias with multiple comorbidities, including A/C rHF, CAD with prior LAD stenting and likely ongoing ischemia, newly developed LBBB which has since improved/normalized. Prior DM/HTN/obesity. Concern for advanced AV block and possible AVN/His/Purkinje ischemia and need for possible PPM/ICD. - Review of Systems General: reports: fatigue. denies: fever/chills, weight/appetite/sleep changes , night sweats Respiratory: reports: cough, shortness of breath. denies: congestion, exercise intolerance Cardiovascular: reports: edema, orthopnea. denies: chest pain, palpitation, paroxysmal nocturnal dyspnea Gastrointestinal: denies: nausea, vomiting, diarrhea, constipation, abd pain, GI bleeding Musculoskeletal: reports: swelling. denies: pain, tenderness, stiffness, arthritis/arthralgias Neurological: reports: numbness (BLE, long standing issue but worse for the past few days.). denies: syncope, seizure, weakness - Objective Allergies/Adverse Reactions: Allergies Allergy/AdvReac Type Severity Reaction Status Date / Time No Known Drug Allergies Allergy Verified 01/05/19 04:58 Visit Medications: Current Medications Acetaminophen (Tylenol) 325 mg PO Q4H PRN PRN Reason: Headache/Fever or Pain Last Admin: 02/23/19 15:52 Dose: 325 mg Hydrocodone Bitart/Acetaminophen ([place] 5/325) 1 tab PO Q4H PRN PRN Reason: Moderate Pain (4-6) Last Admin: 02/26/19 20:47 Dose: 1 tab Albuterol/Ipratropium (Duoneb) 3 ml NEB [id number] [facility] Last Admin: 02/28/19 07:22 Dose: 3 ml Aspirin (Aspirin Chewable) 81 mg PO DAILY [facility] Last Admin: 02/28/19 08:46 Dose: 81 mg Carvedilol (Coreg) 3.125 mg PO BID-WM [facility] Last Admin: 02/28/19 08:47 Dose: 3.125 mg Cefdinir (Omnicef) 300 mg PO BID [facility] Stop: 03/04/19 09:01 Last Admin: 02/28/19 08:46 Dose: 300 mg Dextrose/Water (Dextrose 50%) 25 gm IVP PRN PRN PRN Reason: HYPOGLYCEMIA PROTOCOL Ezetimibe (Zetia) 10 mg PO DAILY [facility] Last Admin: 02/28/19 08:46 Dose: 10 mg Glucagon (Glucagon) 1 mg IM PRN PRN PRN Reason: HYPOGLYCEMIA PROTOCOL Dextrose/Water (D5w) 1,000 mls @ 0 mls/hr IV INF PRN PRN Reason: HYPOGLYCEMIA PROTOCOL Dobutamine HCl/Dextrose (Dobutamine 500 Mg/250 Ml) 250 mls @ 9.315 mls/hr IVPB INF [facility]; Protocol Last Admin: 02/27/19 03:50 Dose: 250 mls Insulin Glargine 35 units/ (Miscellaneous Medication) 0.35 mls @ 0 mls/hr SC BID [facility] Last Admin: 02/28/19 08:48 Dose: 0.35 mls Furosemide 100 mg/Miscellaneous Medication 1 units/ Sodium Chloride 100 mls @ 20 mls/hr IVPB INF [facility] Stop: 02/28/19 12:59 Last Admin: 02/28/19 10:00 Dose: 100 mls Insulin Human Regular (Humulin R) 0 units SC .AGGRESSIVE SLIDING PRN PRN Reason: Aggressive Sliding Scale Last Admin: 02/28/19 00:06 Dose: 3 unit Isosorbide Mononitrate (Imdur) 60 mg PO DAILY [facility] Last Admin: 02/28/19 08:47 Dose: 60 mg Morphine Sulfate (Morphine) 4 mg SLOW IVP Q4H PRN PRN Reason: Chest Pain (7-10) Last Admin: 02/27/19 19:43 Dose: 4 mg Morphine Sulfate (Morphine) 2 mg SLOW IVP Q4H PRN PRN Reason: CHEST PAIN (4-6) Last Admin: 02/24/19 06:50 Dose: 2 mg Nitroglycerin (Nitrostat) 0.4 mg SL Q5MIN PRN PRN Reason: Chest Pain Last Admin: 02/23/19 19:20 Dose: 0.4 mg Ondansetron HCl (Zofran) 4 mg SLOW IVP Q4H PRN PRN Reason: Nausea/Vomiting Last Admin: 02/23/19 21:07 Dose: 4 mg Potassium [facility] ([facility]Dur) [facility] Last Admin: 02/28/19 08:47 Dose: 40 meq Ranolazine (Ranexa) 1,000 mg PO BID [facility] Last Admin: 02/28/19 08:47 Dose: 1,000 mg Sertraline HCl (Zoloft) 100 mg PO DAILY [facility] Last Admin: 02/28/19 08:47 Dose: 100 mg Sodium Chloride (Flush - Normal Saline) 10 ml IVF PRN PRN PRN Reason: Saline Flush Sodium Chloride (Flush - Normal Saline) 10 ml IVF Q12HR [facility] Last Admin: 02/28/19 09:55 Dose: Not Given Ticagrelor (Brilinta) 90 mg PO BID [facility] Last Admin: 02/28/19 08:48 Dose: 90 mg Vital Signs & Weight: Vital Signs Temp Pulse Resp Pulse Ox 02/28/19 07:22 73 20 100 02/28/19 07:18 72 24 H 100 02/28/19 07:00 98.9 F 02/28/19 04:00 98.5 F 02/28/19 02:30 76 29 H 98 02/28/19 00:06 77 28 H 100 02/28/19 00:00 98.3 F 98 Weight 268 lb 15.423 oz - Physical Exam General: alert & oriented x3, no apparent distress HEENT: mucus membranes moist, EOMI Neck: supple neck, midline trachea, no masses, no bruit, JVD/HJR Cardiac: regular rate and rhythm, regular rate, regular rhythm Lungs: bibasilar rales, oxygen (HF O2) Neuro: grossly intact, coordination normal, no lateralizing findings, numbness ( BLE, A/C issue) Abdomen: other (+HJR) Skin: clear - Labs Result Diagrams: 02/26/19 05:36 02/28/19 03:45 Troponin/CKMB CK-MB (CK-2) 24.3 ng/mL (0-6.6) H* 02/22/19 22:24 Troponin I 27.550 ng/mL (< 0.028) H* 02/23/19 10:50 - EKG Interpretation EKG Method: Telemetry EKG: other (Intermittent LBBB and bradycardia.) EKG shows: sinus rhythm - Assessment/Plan Assessment/Plan: 1. Advanced CAD with recent ACS -per cardiology. Prior LAD stent with restenting and fairly recent thrombectomy 2. A/C HFrEF -remains on lasix gtt but will transition to PO later today. Respiratory status improving but not optimized. 3. Bundle branch block - Right and progressive atypical Left which has since improved and is currently improved/stable. Concern for AVN/His purkinje ischemia. - no high grade AV block seen so far and can hold off on pacing therapies. Continue HF optimization. There is consideration for a Bi-V ICD given her reduced EF and LBBB with worsening HF symptoms, but at this time she has no acute need for pacing, HF symptoms are stabilizing, and LBBB has improved. I would not recommend PPM/ICD implant at this time. Will continue to monitor for advanced AV block issues.
[2019-02-28] MEDS ORDERED: Potassium Chloride 20 MEQ TAB PO SCH (12:45)
--- NOTE | 2019-02-28 13:00 | PRG ---
DATE OF SERVICE: 02/28/2019 SERVICE: Nephrology. SUBJECTIVE: A 48-year-old female with acute myocardial infarction associated with acute on chronic heart failure and acute respiratory failure, being followed up by Nephrology for acute kidney injury and volume overload. Still on high-flow high humidity oxygen. Overall, clinically improved. More awake and conversational. Chest pain has subsided. Denied fever, chills, rigor, or cough. OBJECTIVE: VITAL SIGNS: Temperature 98.9, pulse 80, respiratory rate 30, SpO2 of 100 on FiO2 30%. Blood pressure is 124/79. GENERAL: Obese female, in mild respiratory distress. Afebrile. Anicteric. Acyanotic. HEENT: Normocephalic, atraumatic. Oral mucosa is moist. CARDIOVASCULAR: Regular rhythm and rate with normal heart sounds 1 and 2. RESPIRATORY: Fair air entry bilaterally with few bibasilar crackles. GI: Obese, soft, nontender, nondistended with normal bowel sounds. UGS: Smith catheter is in place draining urine. EXTREMITIES: Grossly normal looking atraumatic with no obvious edema or erythema. MARZIPAN MAKER: Conscious, alert, oriented x3 with appropriate mental status. Cranial nerves 2 through 12 are grossly intact. The patient moves all extremities. DIAGNOSTIC DATA: CMP showed sodium 136, potassium 3.5, chloride 95, CO2 of 33, BUN 56, creatinine 1.49, glucose 98, calcium 8.9, magnesium 1.8, total bilirubin 0.6, AST 169, ALT 464, alkaline phosphatase 121, total protein 6.6, albumin 2.8, globulin 3.8. ASSESSMENT: 1. Acute renal failure: Due to hemodynamic factors related to cardiogenic shock. Improving with better hemodynamics. Creatinine is down to 1.5 from above 4. 2. Hyperkalemia: Resolved. 3. Hypokalemia: Due to diuretic therapy. We will continue supplementation due to continued diuretic therapy. 4. Acute congestive heart failure: Improving. The patient is still with tenuous respiratory status. 5. Ischemic cardiomyopathy with ejection fraction of 25% to 30%. 6. Metabolic acidosis: Due to cardiogenic shock, resolved. 7. Volume overload: The patient is responding well now with diuretics. 8. Diabetes mellitus: Control is better. PLAN: 1. We will transition Lasix infusion to intermittent IV Lasix. We will also give additional potassium chloride to get serum potassium above 4. 2. We will continue oral supplementation 40 mEq p.o. b.i.d. in view of continued diuretics. 3. We will however discontinue alkali therapy as sodium bicarb is 33. 4. We will continue to monitor intake and output. Recommend weaning off oxygen as tolerated. 5. Other treatment as per Cardiology and primary attending. Job ID: [id number]
[2019-02-28] MEDS: Morphine 2 MG/ML SYRINGE SLOW IVP PRN (15:43)
[2019-02-28] MEDS: Furosemide 40 MG/4 ML VIAL SLOW IVP SCH ×2 (15:43→21:23)
[2019-02-28] MEDS: Acetaminophen 325 MG TAB PO PRN (17:35)
[2019-02-28] MEDS: Morphine 4 MG/ML VIAL SLOW IVP PRN (20:01)
[2019-03-01 04:45] LABS: #Eosinphils 0.4 thou/uL (0.0-0.7); #Lymphocytes 1.4 thou/uL (1.20-3.40); #Monocytes 0.6 thou/uL (0.11-0.59); %Basophils 0.3 % (0.0-1.0); %Eosinophils 2.9 % (0.0-10.0); %Lymphocytes 11.6 % (21.0-51.0); %Monocytes 4.6 % (0.0-10.0); %Neutrophils 80.6 % (42.0-75.0); Hemoglobin 8.3 g/dL (12.0-16.0); Mean Corpuscular HGB CONC 32.8 g/dL (32.0-36.0); Mean Corpuscular Hemoglobin 24.7 pg (27.0-31.0); Mean Corpuscular Volume 75.1 fL (78.0-98.0); Platelet Count 373 thou/uL (130-400); RBC Distribution Width 14.4 % (11.5-14.5); Red Blood Cell (RBC) Count 3.36 mill/uL (4.20-5.40); White Blood Cell (WBC) Count 12.4 thou/uL (4.8-10.8)
[2019-03-01 05:00] LABS: ALT (SGPT) 325 U/L (8-55); AST (SGOT) 90 U/L (5-34); Albumin 2.9 g/dL (3.5-5.0); Alkaline Phosphatase 117 U/L (40-110); Anion Gap 13 mmol/L (10-20); BUN (Urea Nitrogen) 54 mg/dL (7.0-18.7); Bilirubin, Total 0.5 mg/dL (0.2-1.2); Calc. Creatinine Clearance 87 mL/min (70-130); Carbon Dioxide 31 mmol/L (22-29); Chloride 93 mmol/L (98-107); Estimated GFR-MDRD 37; Globulin 3.6 g/dL (2.4-3.5); Glucose 80 mg/dL (70-105); Magnesium 1.9 mg/dL (1.6-2.6); Protein, Total 6.5 g/dL (6.0-8.3); Sodium 134 mmol/L (136-145)
[2019-03-01 05:04] LABS: Potassium 2.9 mmol/L (3.5-5.1)
[2019-03-01] MEDS ORDERED: Potassium Chloride 40 MEQ in Premix Bag 1 BAG IVPB SCH (05:30)
[2019-03-01] MEDS: Furosemide 40 MG/4 ML VIAL SLOW IVP SCH (05:42)
[2019-03-01] MEDS ORDERED: Potassium Chloride 20 MEQ TAB PO SCH ×2 (06:15→20:00)
[2019-03-01] MEDS: Aspirin Chewable 81 MG TAB PO SCH (08:37)
[2019-03-01] MEDS: Cefdinir 300 MG CAP PO SCH ×2 (08:39→20:53)
[2019-03-01] MEDS: Metolazone 5 MG TAB PO SCH (08:39)
[2019-03-01] MEDS: Ezetimibe 10 MG TAB PO SCH (08:39)
[2019-03-01] MEDS: Carvedilol 3.125 MG TAB PO SCH ×2 (08:39→17:55)
[2019-03-01] MEDS: Insulin Glargine 35 UNITS in Pre-Filled Syringe 1 EACH SC SCH ×2 (08:41→20:52)
[2019-03-01] MEDS: Potassium Chloride 20 MEQ TAB PO SCH ×3 (08:42→21:17)
[2019-03-01] MEDS ORDERED: Furosemide 40 MG/4 ML VIAL SLOW IVP SCH (09:00)
[2019-03-01] MEDS: TICAGRELOR 90 MG TABLET PO SCH ×2 (09:23→20:53)
--- NOTE | 2019-03-01 10:33 | PRG ---
DATE OF SERVICE: 03/01/2019 SUBJECTIVE: She is up in a chair. She says she is feeling better. OBJECTIVE: VITAL SIGNS: Her temperature is 98.3, pulse is 75, blood pressure is 130/88. Her O2 saturations in the higher 90s on a high-flow nasal cannula at 45%. HEENT: Unremarkable. NECK: No adenopathy or JVD. LUNGS: She has crackles in both bases. CARDIAC: S1, S2. Regular. ABDOMEN: Soft. EXTREMITIES: Trace edema. LABORATORY DATA: White blood cell count 12.4, hematocrit 25.2, and platelet count 373. Sodium 134, potassium 2.9, chloride 93, CO2 of 31, BUN 54, creatinine 1.5, glucose 80. ASSESSMENT: 1. Cardiomyopathy with congestive heart failure. 2. Renal failure. 3. Hepatic congestion. 4. Obstructive sleep apnea. 5. Severe deconditioning. PLAN: We will attempt to wean her off the high-flow nasal cannula today. She is probably approaching the point where she can go to [facility], if she can tolerate low-flow oxygen. Job ID: [id number]
--- NOTE | 2019-03-01 10:38 | PRG ---
DATE OF SERVICE: 03/01/2019 SERVICE: Nephrology. SUBJECTIVE: A 48-year-old with acute myocardial infarction associated with acute cardiac decompensation and respiratory failure, being followed up by Nephrology for acute renal failure with electrolyte derangements and volume overload. The patient is still on high-flow, high-humidity oxygen, but overall clinically improved. Denied chest pain, nausea, vomiting, abdominal pain, or headaches. Breathing is more comfortable and she denied orthopnea. OBJECTIVE: VITAL SIGNS: Temperature 98.3, pulse 75, respiratory rate 27, and SpO2 of 100% on FiO2 30%, high-humidity high-flow oxygen. Blood pressure is 130/88. GENERAL: Obese female, in no distress. Afebrile, anicteric, and acyanotic. HEENT: Normocephalic and atraumatic. Oral mucosa is moist. CARDIOVASCULAR: Regular rhythm and rate with normal heart sounds 1 and 2. RESPIRATORY: Fair air entry bilaterally with bibasilar crackles posteriorly. GI: Obese, soft, nontender, nondistended with normal bowel sounds. UROGENITAL: Smith catheter is in place, draining urine. EXTREMITIES: Grossly normal looking, atraumatic with no edema or erythema. Distal pulses are palpable. 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 Cranial nerves 2 through 12 are grossly intact. The patient moves all extremities. DIAGNOSTIC DATA: CBC showed WBC count of 12.8, hemoglobin of 8.3, MCV of 75.1, and platelets of 373. CMP showed sodium of 134, potassium 2.9, chloride 93, CO2 of 31, BUN 54, creatinine 1.51, glucose 80, calcium 9.0, magnesium 1.9, total bilirubin 0.5, AST 90, ALT 325, alkaline phosphatase 117, total protein 6.5, albumin 2.9, globulin 3.6. ASSESSMENT: 1. Acute renal failure: Due to hemodynamic factors related to cardiogenic shock. Hemodynamics improved with inotropic agent and the patient was able to be diuresed. Creatinine is down to 1.5 from peak of 4. 2. Fluid overload: Due to acute congestive heart failure and renal failure. Swelling and weight are dropping. 3. Hypokalemia: Due to diuretic therapy. 4. Hyperkalemia, resolved due to acute renal failure. 5. Acute systolic heart failure. Improved. 6. Ischemic cardiomyopathy with ejection fraction of 25 to 30. 7. Metabolic acidosis: Improved. The patient is on alkali therapy. 8. Diabetes mellitus. PLAN: 1. We will replete serum potassium with both IV and oral potassium chloride while monitoring for overcorrection. 2. We will also decrease diuretic therapy. We will change from 40 IV of Lasix t.i.d. to b.i.d. dosing. We will however continue metolazone. 3. We will continue intake and output monitoring as well as daily weights. Wean off oxygen as tolerated. Other recommendation and treatment as per Cardiology and primary attending. We will recheck renal function in the morning as well as later today with potassium supplementation. Job ID: [id number]
--- NOTE | 2019-03-01 11:08 | PDOC.HOSPP ---
- Subjective Encounter Date: 03/01/19 Encounter Time: 10:45 Subjective: Patient seen and examined. No new complaints. No overnight events - Objective Vital Signs & Weight: Vital Signs (12 hours) Temp Pulse Resp Pulse Ox 03/01/19 10:00 95 03/01/19 07:30 67 18 100 03/01/19 07:29 68 19 100 03/01/19 04:00 98.3 F 03/01/19 02:12 100 03/01/19 02:11 100 03/01/19 00:00 98.7 F Weight Weight 261 lb 12.8 oz Most Recent Monitor Data Heart Rate from ECG 75 NIBP 130/88 NIBP BP-Mean 102 Respiration from ECG 27 SpO2 100 I&O: 02/28/19 03/01/19 03/02/19 06:59 06:59 06:59 Intake Total 1550 816 Output Total 6170 2700 325 [facility] -990 -3244 -325 Result Diagrams: 03/01/19 04:15 03/01/19 03:30 Additional Labs: Accuchecks 03/01/19 03/01/19 02/28/19 07:47 04:12 20:42 POC Glucose 82 83 138 H 02/28/19 02/28/19 16:26 11:40 POC Glucose 145 H 117 H EKG Reviewed by me: Yes Hospitalist ROS - Review of Systems ENT: denies: ear pain, ear discharge, nose pain, nose discharge, nose congestion , mouth pain, mouth swelling, throat pain, throat swelling, other Respiratory: denies: cough, dry, shortness of breath, hemoptysis, SOB with excertion, pleuritic pain, sputum, wheezing, other Cardiovascular: denies: chest pain, palpitations, orthopnea, paroxysmal noc. dyspnea, edema, light headedness, other Gastrointestinal: denies: nausea, vomiting, abdominal pain, diarrhea, constipation, melena, hematochezia, other Genitourinary: denies: dysuria, frequency, incontinence, hematuria, retention, other Musculoskeletal: denies: neck pain, shoulder pain, arm pain, back pain, hand pain, leg pain, foot pain, other Skin: denies: rash, lesions, alex, bruising, other - Medication Medications: Active Medications Generic Name Dose Route Start Last Admin Trade Name Freq PRN Reason Stop Dose Admin Acetaminophen 325 mg 02/23/19 14:38 02/28/19 17:35 Tylenol PO 325 mg Q4H PRN Administration Headache/Fever or Pain Hydrocodone Bitart/Acetaminophen 1 tab 02/24/19 09:40 02/26/19 20:47 [place] 5/325 PO 1 tab Q4H PRN Administration Moderate Pain (4-6) Albuterol/Ipratropium 3 ml 02/23/19 13:00 03/01/19 07:29 Duoneb NEB 3 ml [id number] ANDREY Administration Aspirin 81 mg 02/23/19 09:00 03/01/19 08:37 Aspirin Chewable PO 81 mg DAILY ANDREY Administration Carvedilol 3.125 mg 02/25/19 08:00 03/01/19 08:39 Coreg PO 3.125 mg BID-WM ANDREY Administration Cefdinir 300 mg 02/27/19 09:00 03/01/19 08:39 Omnicef PO 03/04/19 09:01 300 mg BID ANDREY Administration Ezetimibe 10 mg 02/25/19 09:00 03/01/19 08:39 Zetia PO 10 mg DAILY ANDREY Administration Furosemide 40 mg 03/01/19 09:00 03/01/19 08:39 Lasix SLOW IVP 40 mg BID ANDREY Administration Insulin Glargine 35 units/ 0.35 mls @ 0 mls/hr 02/25/19 09:00 03/01/19 08:41 Miscellaneous Medication SC 0.35 mls BID ANDREY Administration Insulin Human Regular 0 units 02/24/19 09:43 02/28/19 00:06 Humulin R SC 3 unit .AGGRESSIVE SLIDING PRN Administration Aggressive Sliding Scale Isosorbide Mononitrate 60 mg 02/23/19 09:00 03/01/19 08:39 Imdur PO 60 mg DAILY ANDREY Administration Metolazone 5 mg 03/01/19 08:30 03/01/19 08:39 Zaroxolyn PO 5 mg 0830 ANDREY Administration Morphine Sulfate 4 mg 02/23/19 01:04 02/28/19 20:01 Morphine SLOW IVP 4 mg Q4H PRN Administration Chest Pain (7-10) Morphine Sulfate 2 mg 02/23/19 01:11 02/28/19 15:43 Morphine SLOW IVP 2 mg Q4H PRN Administration CHEST PAIN (4-6) Nitroglycerin 0.4 mg 02/23/19 01:04 02/23/19 19:20 Nitrostat SL 0.4 mg Q5MIN PRN Administration Chest Pain Ondansetron HCl 4 mg 02/23/19 20:46 02/23/19 21:07 Zofran SLOW IVP 4 mg Q4H PRN Administration Nausea/Vomiting Potassium Chloride 40 meq 03/01/19 09:00 03/01/19 08:42 K-Dur PO Not Given TID ANDREY Ranolazine 1,000 mg 02/27/19 21:00 03/01/19 08:38 Ranexa PO 1,000 mg BID ANDREY Administration Sertraline HCl 100 mg 02/23/19 09:00 03/01/19 08:38 Zoloft PO 100 mg DAILY ANDREY Administration Sodium Chloride 10 ml 02/23/19 09:00 03/01/19 09:22 Flush - Normal Saline IVF Not Given Q12HR ANDREY Ticagrelor 90 mg 02/23/19 09:00 03/01/19 09:23 Brilinta PO 90 mg BID ANDREY Administration - Exam General Appearance: NAD, awake alert Eye: PERRL, anicteric sclera ENT: normocephalic atraumatic, no oropharyngeal lesions Neck: supple, symmetric, no JVD, no thyromegaly Heart: RRR, no murmur, no gallops, no rubs Respiratory: CTAB, no wheezes, no rales Gastrointestinal: soft, non-tender, non-distended, normal bowel sounds Extremities: no cyanosis, no clubbing, 1+ LE edema Skin: normal turgor, no lesions Neurological: cranial nerve grossly intact, no focal deficits Musculoskeletal: normal tone, normal strength Psychiatric: normal affect, normal behavior, A&O x 3 Hosp A/P (1) NSTEMI (non-ST elevated myocardial infarction) Code(s): I21.4 - NON-ST ELEVATION (NSTEMI) MYOCARDIAL INFARCTION Status: Acute (2) Coronary stent thrombosis Code(s): T82.867A - THROMBOSIS DUE TO CARDIAC PROSTH DEV/GRFT, INITIAL ENCOUNTER Status: Acute Qualifiers: Encounter type: initial encounter Qualified Code(s): T82.867A - Thrombosis due to cardiac prosthetic devices, implants and grafts, initial encounter (3) Acute systolic heart failure, ACC/AHA stage C Code(s): I50.21 - ACUTE SYSTOLIC (CONGESTIVE) HEART FAILURE Status: Acute (4) JOAQUIN (acute kidney injury) Code(s): N17.9 - ACUTE KIDNEY FAILURE, UNSPECIFIED Status: Acute (5) Metabolic acidosis Code(s): E87.2 - ACIDOSIS Status: Resolved (6) Transaminitis Code(s): R74.0 - NONSPEC ELEV OF LEVELS OF TRANSAMNS & LACTIC ACID DEHYDRGNSE Status: Acute (7) Acute respiratory failure Code(s): J96.00 - ACUTE RESPIRATORY FAILURE, UNSP W HYPOXIA OR HYPERCAPNIA Status: Acute Qualifiers: Respiratory failure complication: hypoxia Qualified Code(s): J96.01 - Acute respiratory failure with hypoxia (8) DM type 2, uncontrolled, with neuropathy Code(s): E11.40 - TYPE 2 DIABETES MELLITUS WITH DIABETIC NEUROPATHY, UNSP; E11.65 - TYPE 2 DIABETES MELLITUS WITH HYPERGLYCEMIA Status: Chronic (9) Anxiety and depression Code(s): F41.9 - ANXIETY DISORDER, UNSPECIFIED; F32.9 - MAJOR DEPRESSIVE DISORDER, SINGLE EPISODE, UNSPECIFIED Status: Chronic (10) CAD (coronary artery disease) Code(s): I25.10 - ATHSCL HEART DISEASE OF [place] CORONARY ARTERY W/O ANG PCTRS Status: Chronic Qualifiers: Coronary Disease-Associated Artery/Lesion type: [place] artery Associated angina: with unstable angina (11) DM type 2 (diabetes mellitus, type 2) Status: Chronic Qualifiers: Diabetes mellitus nursing home insulin use: with termite helper use (12) Dyslipidemia Code(s): E78.5 - HYPERLIPIDEMIA, UNSPECIFIED Status: Chronic (13) HTN (hypertension) Code(s): I10 - ESSENTIAL (PRIMARY) HYPERTENSION Status: Chronic Qualifiers: (14) Morbid obesity with BMI of 45.0-49.9, adult Code(s): E66.01 - MORBID (SEVERE) OBESITY DUE TO EXCESS CALORIES; Z68.42 - BODY MASS INDEX (BMI) 45.0-49.9, ADULT Status: Acute (15) Microcytic anemia Code(s): D50.9 - IRON DEFICIENCY ANEMIA, UNSPECIFIED Status: Chronic (16) Hypokalemia Code(s): E87.6 - HYPOKALEMIA Status: Acute - Plan old records reviewed/req 02/26/19- continue dobutamine drib, continue lasix drip, continue bicarbonate, monitor labs, repeat labs tomorrow, medication reviewed as above, symptomatic treatment 02/27/19- currently on dobutaime drip, IV lasix, today Iron infusion, renal function improving, overall see improvement, medication reviewed as above, symptomatic treatment. 02/28/19- now off dobutamine, continue lasix, continue brilinta, ranexa, renal and liver function continue to improve, now will need to reduce oxygen as tolerated, most likely she may need home oxygen, will need life vest, discussed with son, medication reviewed as above, symptomatic treatment 03/01/19- today lasix reduced as per nephrology, will continue to optimize treatment for CHF, will need life vest on discharge, monitor labs, wean off oxygen as tolerated, cardiac rehab, replace potassium
--- NOTE | 2019-03-01 12:08 | PDOC.CPN ---
- Subjective Date: 03/01/19 Time: 12:06 Interval history: She is doing well. No chest pain. - Review of Systems General: denies: fever/chills, weight/appetite/sleep changes, night sweats, fatigue Respiratory: reports: shortness of breath. denies: cough, congestion, exercise intolerance Cardiovascular: denies: chest pain, palpitation, edema, paroxysmal nocturnal dyspnea, orthopnea Gastrointestinal: denies: nausea, vomiting, diarrhea, constipation, abd pain, GI bleeding Musculoskeletal: denies: pain, tenderness, stiffness, swelling, arthritis/ arthralgias Neurological: denies: numbness, syncope, seizure, weakness - Objective Allergies/Adverse Reactions: Allergies Allergy/AdvReac Type Severity Reaction Status Date / Time No Known Drug Allergies Allergy Verified 01/05/19 04:58 Visit Medications: Current Medications Acetaminophen (Tylenol) 325 mg PO Q4H PRN PRN Reason: Headache/Fever or Pain Last Admin: 02/28/19 17:35 Dose: 325 mg Hydrocodone Bitart/Acetaminophen ([place] 5/325) 1 tab PO Q4H PRN PRN Reason: Moderate Pain (4-6) Last Admin: 02/26/19 20:47 Dose: 1 tab Albuterol/Ipratropium (Duoneb) 3 ml NEB [id number] [facility] Last Admin: 03/01/19 07:29 Dose: 3 ml Aspirin (Aspirin Chewable) 81 mg PO DAILY [facility] Last Admin: 03/01/19 08:37 Dose: 81 mg Carvedilol (Coreg) 3.125 mg PO BID-WM [facility] Last Admin: 03/01/19 08:39 Dose: 3.125 mg Cefdinir (Omnicef) 300 mg PO BID [facility] Stop: 03/04/19 09:01 Last Admin: 03/01/19 08:39 Dose: 300 mg Dextrose/Water (Dextrose 50%) 25 gm IVP PRN PRN PRN Reason: HYPOGLYCEMIA PROTOCOL Ezetimibe (Zetia) 10 mg PO DAILY [facility] Last Admin: 03/01/19 08:39 Dose: 10 mg Furosemide (Lasix) 40 mg SLOW IVP BID [facility] Last Admin: 03/01/19 08:39 Dose: 40 mg Glucagon (Glucagon) 1 mg IM PRN PRN PRN Reason: HYPOGLYCEMIA PROTOCOL Dextrose/Water (D5w) 1,000 mls @ 0 mls/hr IV INF PRN PRN Reason: HYPOGLYCEMIA PROTOCOL Insulin Glargine 35 units/ (Miscellaneous Medication) 0.35 mls @ 0 mls/hr SC BID [facility] Last Admin: 03/01/19 08:41 Dose: 0.35 mls Insulin Human Regular (Humulin R) 0 units SC .AGGRESSIVE SLIDING PRN PRN Reason: Aggressive Sliding Scale Last Admin: 02/28/19 00:06 Dose: 3 unit Isosorbide Mononitrate (Imdur) 60 mg PO DAILY [facility] Last Admin: 03/01/19 08:39 Dose: 60 mg Metolazone (Zaroxolyn) 5 mg PO 0830 [facility] Last Admin: 03/01/19 08:39 Dose: 5 mg Morphine Sulfate (Morphine) 4 mg SLOW IVP Q4H PRN PRN Reason: Chest Pain (7-10) Last Admin: 02/28/19 20:01 Dose: 4 mg Morphine Sulfate (Morphine) 2 mg SLOW IVP Q4H PRN PRN Reason: CHEST PAIN (4-6) Last Admin: 02/28/19 15:43 Dose: 2 mg Nitroglycerin (Nitrostat) 0.4 mg SL Q5MIN PRN PRN Reason: Chest Pain Last Admin: 02/23/19 19:20 Dose: 0.4 mg Ondansetron HCl (Zofran) 4 mg SLOW IVP Q4H PRN PRN Reason: Nausea/Vomiting Last Admin: 02/23/19 21:07 Dose: 4 mg Potassium Chloride (K-Dur) 40 meq PO TID [facility] Last Admin: 03/01/19 08:42 Dose: Not Given Ranolazine (Ranexa) 1,000 mg PO BID [facility] Last Admin: 03/01/19 08:38 Dose: 1,000 mg Sertraline HCl (Zoloft) 100 mg PO DAILY [facility] Last Admin: 03/01/19 08:38 Dose: 100 mg Sodium Chloride (Flush - Normal Saline) 10 ml IVF PRN PRN PRN Reason: Saline Flush Sodium Chloride (Flush - Normal Saline) 10 ml IVF Q12HR [facility] Last Admin: 03/01/19 09:22 Dose: Not Given Ticagrelor (Brilinta) 90 mg PO BID [facility] Last Admin: 03/01/19 09:23 Dose: 90 mg Vital Signs & Weight: Vital Signs Temp Pulse Resp Pulse Ox 03/01/19 10:00 95 03/01/19 08:00 98 03/01/19 07:30 67 18 100 03/01/19 07:29 68 19 100 03/01/19 04:00 98.3 F 03/01/19 02:12 100 03/01/19 02:11 100 Weight 261 lb 12.8 oz - Physical Exam General: alert & oriented x3, no apparent distress HEENT: mucus membranes moist, normocephaly Neck: supple neck, midline trachea Cardiac: regular rate and rhythm, no murmur Lungs: clear to auscultation, no wheeze, rales, rhonchi Neuro: grossly intact, coordination normal Abdomen: active bowel sounds, soft, non-tender Skin: clear Musculoskeletal: normal range of motion, no pain - Labs Result Diagrams: 03/01/19 04:15 03/01/19 03:30 Troponin/CKMB CK-MB (CK-2) 24.3 ng/mL (0-6.6) H* 02/22/19 22:24 Troponin I 27.550 ng/mL (< 0.028) H* 02/23/19 10:50 - Telemetry Sinus rhythms and dysrhythmias: sinus rhythm - Assessment/Plan Assessment/Plan: 1. Acute anterior STEMI. 2. Ischemic CM 3. LV function at 25-30% 4. New LBBB 5. Acute on chronic systolic heart failure. 6. T2DM 7. HTN 8. Obesity PLAN: - Stable, continue current meds. - Lifevest before discharge. - Lasix being modified by nephrology, agree with this. - Continue Brilinta, ASA, Statin, BB, no ACEI due to renal function - Replace K. - Critical Care Time Critical care time (mins): 30
[2019-03-01 16:08] LABS: Albumin 2.9 g/dL (3.5-5.0); Anion Gap 14 mmol/L (10-20); BUN (Urea Nitrogen) 54 mg/dL (7.0-18.7); BUN/Creatinine Ratio 33.75; Calc. Creatinine Clearance 80 mL/min (70-130); Calcium 8.8 mg/dL (7.8-10.44); Carbon Dioxide 30 mmol/L (22-29); Chloride 93 mmol/L (98-107); Estimated GFR-MDRD 34; Glucose 178 mg/dL (70-105); Phosphorus 3.7 mg/dL (2.3-4.7); Potassium 3.2 mmol/L (3.5-5.1); Sodium 134 mmol/L (136-145)
[2019-03-01] MEDS: Insulin Regular 300 UNITS/3 ML VIAL SC PRN (17:55)
[2019-03-02 04:46] LABS: ALT (SGPT) 213 U/L (8-55); AST (SGOT) 48 U/L (5-34); Albumin 2.8 g/dL (3.5-5.0); Alkaline Phosphatase 127 U/L (40-110); Anion Gap 13 mmol/L (10-20); BUN (Urea Nitrogen) 52 mg/dL (7.0-18.7); Bilirubin, Total 0.4 mg/dL (0.2-1.2); Calc. Creatinine Clearance 92 mL/min (70-130); Calcium 8.8 mg/dL (7.8-10.44); Carbon Dioxide 31 mmol/L (22-29); Chloride 96 mmol/L (98-107); Estimated GFR-MDRD 40; Globulin 3.6 g/dL (2.4-3.5); Glucose 149 mg/dL (70-105); Potassium 3.8 mmol/L (3.5-5.1); Protein, Total 6.4 g/dL (6.0-8.3); Sodium 136 mmol/L (136-145)
[2019-03-02] MEDS ORDERED: Senokot S 8.6-50 MG TAB PO PRN (07:51)
[2019-03-02] MEDS ORDERED: Cepastat Lozenges 1 LOZ PO PRN (07:51)
[2019-03-02] MEDS ORDERED: Sodium Chloride 0.65% Nasal 44 ML BOT EA NARE PRN (07:51)
[2019-03-02] MEDS ORDERED: Bisacodyl 10 MG SUPP PR PRN (07:51)
[2019-03-02] MEDS ORDERED: Artificial Tears 18 DROP/0.9 ML EA EYE PRN (07:51)
[2019-03-02] MEDS ORDERED: Loperamide HCl 2 MG CAP PO PRN (07:51)
[2019-03-02] MEDS ORDERED: Loratadine 10 MG TAB PO PRN (07:51)
[2019-03-02] MEDS ORDERED: Diabetic Tussin 200 MG/10 ML UDCUP PO PRN (07:51)
[2019-03-02] MEDS: Potassium Chloride 20 MEQ TAB PO SCH ×3 (08:26→20:49)
[2019-03-02] MEDS: Ezetimibe 10 MG TAB PO SCH (08:26)
[2019-03-02] MEDS: Cefdinir 300 MG CAP PO SCH ×2 (08:26→20:47)
[2019-03-02] MEDS: Bumetanide 1 MG TAB PO SCH ×2 (08:27→17:22)
[2019-03-02] MEDS: Metolazone 5 MG TAB PO SCH (08:29)
[2019-03-02] MEDS: Aspirin Chewable 81 MG TAB PO SCH (08:29)
[2019-03-02] MEDS: Carvedilol 3.125 MG TAB PO SCH ×2 (08:29→17:21)
[2019-03-02] MEDS: TICAGRELOR 90 MG TABLET PO SCH ×2 (08:30→20:48)
--- NOTE | 2019-03-02 08:30 | PRG ---
DATE OF SERVICE: 03/02/2019 SUBJECTIVE: She is beginning to do much better. She is up in a chair today. She did not require the high-flow oxygen yesterday afternoon. She is wearing BiPAP at night for sleep apnea. OBJECTIVE: VITAL SIGNS: Temperature 98.8, pulse 74, blood pressure 120/81, O2 saturation was running in the mid 90s on nasal cannula. A 24-hour intake 904, output 2525. HEENT: Unremarkable. NECK: No JVD. LUNGS: She has a few inspiratory crackles at the bases. CARDIAC: S1 and S2. Regular. ABDOMEN: Soft. EXTREMITIES: No overt edema. LABORATORY DATA: Sodium 136, potassium 3.8, chloride 96, CO2 of 31, BUN 52, creatinine 1.3, glucose 149. ASSESSMENT: 1. Cardiomyopathy with congestive heart failure. 2. Renal failure. 3. Hepatic congestion. 4. Obstructive sleep apnea. 5. Severe deconditioning. PLAN: She can be transferred out to the telemetry unit. She will continue on medical therapy. She can use BiPAP at night for her JAEL. Job ID: [id number]
[2019-03-02] MEDS: Insulin Glargine 35 UNITS in Pre-Filled Syringe 1 EACH SC SCH ×2 (08:36→20:46)
--- NOTE | 2019-03-02 10:22 | PRG ---
DATE OF SERVICE: 03/02/2019 SERVICE: Nephrology. SUBJECTIVE: A 48-year-old female admitted due to acute myocardial infarction associated with acute congestive heart failure and respiratory failure. Nephrology has seen patient for acute renal failure and volume overload. The patient is clinically improved, however still requiring oxygen supplementation. Chest pain has subsided. Denied nausea, vomiting. OBJECTIVE: VITAL SIGNS: Temperature 98.3, pulse 75, respiratory rate 20, SpO2 of 95% on 3 L nasal cannula, blood pressure is 124/78. GENERAL: Obese female, in mild distress. Afebrile. Anicteric. Acyanotic. HEENT: Normocephalic, atraumatic. Oral mucosa is moist. CARDIOVASCULAR: Regular rhythm and rate with normal heart sounds 1 and 2. RESPIRATORY: Fair air entry bilaterally with bibasilar crackles. GI: Obese, soft, nontender, nondistended with normal bowel sounds. UROGENITAL: Smith catheter is in place draining some urine. EXTREMITIES: Mild bilateral leg edema noted. 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 DIAGNOSTIC DATA: CMP showed sodium 136, potassium 3.8, chloride 96, CO2 of 31, BUN 52, creatinine 1.39, glucose 149, calcium 8.8, total protein 0.4, AST 48, ALT 213, alkaline phosphatase 127, total protein 6.4, albumin 2.8, globulin 3.6. ASSESSMENT: 1. Acute renal failure: Due to cardiorenal syndrome. Improving. 2. Volume overload, improved. The patient seems to have more swelling today. Lasix was held last night due to acute increase in creatinine. 3. Hyperkalemia: Repleted. 4. Acute congestive heart failure with volume overload and pulmonary congestion. 5. Acute respiratory failure due to congestive heart failure exacerbation. 6. Acute myocardial infarction. 7. Metabolic acidosis: Resolved. PLAN: 1. Continue diuretic therapy. We will however transition to oral Bumex 1 mg p.o. b.i.d. We will also give additional one dose of IV Lasix. We will also continue metolazone. 2. Heart failure treatment as per Cardiology. 3. We will continue to monitor electrolytes and renal function. Job ID: [id number]
--- NOTE | 2019-03-02 10:36 | PDOC.HOSPP ---
- Subjective Encounter Date: 03/02/19 Encounter Time: 10:00 Subjective: pt is now able to manage transfer from bed to chair without getting dyspnea, feels much better, - Objective Vital Signs & Weight: Vital Signs (12 hours) Temp Pulse Resp Pulse Ox 03/02/19 08:00 98.3 F 95 03/02/19 07:00 75 23 H 97 03/02/19 04:00 98.8 F 03/02/19 02:16 72 18 97 03/02/19 02:14 97 03/02/19 00:00 98.7 F Weight Weight 258 lb 8 oz Most Recent Monitor Data Heart Rate from ECG 74 NIBP 118/77 NIBP BP-Mean 90 Respiration from ECG 19 SpO2 100 I&O: 03/01/19 03/02/19 03/03/19 06:59 06:59 06:59 Intake Total 816 904 318 Output Total 4060 9305 135 Balance -3244 -1621 183 Result Diagrams: 03/01/19 04:15 03/02/19 03:50 Additional Labs: Accuchecks 03/02/19 03/02/19 03/01/19 07:28 04:01 20:54 POC Glucose 121 H 149 H 186 H 03/01/19 03/01/19 17:48 11:49 POC Glucose 168 H 126 H EKG Reviewed by me: Yes Hospitalist ROS - Review of Systems Constitutional: reports: weakness. denies: fever, chills, sweats, malaise, other ENT: denies: ear pain, ear discharge, nose pain, nose discharge, nose congestion , mouth pain, mouth swelling, throat pain, throat swelling, other Respiratory: denies: cough, dry, shortness of breath, hemoptysis, SOB with excertion, pleuritic pain, sputum, wheezing, other Cardiovascular: denies: chest pain, palpitations, orthopnea, paroxysmal noc. dyspnea, edema, light headedness, other Gastrointestinal: denies: nausea, vomiting, abdominal pain, diarrhea, constipation, melena, hematochezia, other Genitourinary: denies: dysuria, frequency, incontinence, hematuria, retention, other Musculoskeletal: denies: neck pain, shoulder pain, arm pain, back pain, hand pain, leg pain, foot pain, other - Medication Medications: Active Medications Generic Name Dose Route Start Last Admin Trade Name Freq PRN Reason Stop Dose Admin Acetaminophen 325 mg 02/23/19 14:38 02/28/19 17:35 Tylenol PO 325 mg Q4H PRN Administration Headache/Fever or Pain Hydrocodone Bitart/Acetaminophen 1 tab 02/24/19 09:40 02/26/19 20:47 [place] 5/325 PO 1 tab Q4H PRN Administration Moderate Pain (4-6) Albuterol/Ipratropium 3 ml 02/23/19 13:00 03/02/19 07:00 Duoneb NEB 3 ml [id number] ANDREY Administration Aspirin 81 mg 02/23/19 09:00 03/02/19 08:29 Aspirin Chewable PO 81 mg DAILY ANDREY Administration Bumetanide 1 mg 03/02/19 07:30 03/02/19 08:27 Bumex PO 1 mg BID-AC ANDREY Administration Carvedilol 3.125 mg 02/25/19 08:00 03/02/19 08:29 Coreg PO 3.125 mg BID-WM ANDREY Administration Cefdinir 300 mg 02/27/19 09:00 03/02/19 08:26 Omnicef PO 03/04/19 09:01 300 mg BID ANDREY Administration Ezetimibe 10 mg 02/25/19 09:00 03/02/19 08:26 Zetia PO 10 mg DAILY ANDREY Administration Insulin Glargine 35 units/ 0.35 mls @ 0 mls/hr 02/25/19 09:00 03/02/19 08:36 Miscellaneous Medication SC 0.35 mls BID ANDREY Administration Insulin Human Regular 0 units 02/24/19 09:43 03/01/19 17:55 Humulin R SC 3 unit .AGGRESSIVE SLIDING PRN Administration Aggressive Sliding Scale Isosorbide Mononitrate 60 mg 02/23/19 09:00 03/02/19 08:29 Imdur PO 60 mg DAILY ANDREY Administration Metolazone 5 mg 03/01/19 08:30 03/02/19 08:29 Zaroxolyn PO 5 mg 0830 ANDREY Administration Morphine Sulfate 4 mg 02/23/19 01:04 02/28/19 20:01 Morphine SLOW IVP 4 mg Q4H PRN Administration Chest Pain (7-10) Morphine Sulfate 2 mg 02/23/19 01:11 02/28/19 15:43 Morphine SLOW IVP 2 mg Q4H PRN Administration CHEST PAIN (4-6) Nitroglycerin 0.4 mg 02/23/19 01:04 02/23/19 19:20 Nitrostat SL 0.4 mg Q5MIN PRN Administration Chest Pain Ondansetron HCl 4 mg 02/23/19 20:46 02/23/19 21:07 Zofran SLOW IVP 4 mg Q4H PRN Administration Nausea/Vomiting Potassium Chloride 40 meq 03/01/19 09:00 03/02/19 08:26 K-Dur PO 40 meq TID ANDREY Administration Ranolazine 1,000 mg 02/27/19 21:00 03/02/19 08:36 Ranexa PO 1,000 mg BID ANDREY Administration Sertraline HCl 100 mg 02/23/19 09:00 03/02/19 08:27 Zoloft PO 100 mg DAILY ANDREY Administration Sodium Chloride 10 ml 02/23/19 09:00 03/02/19 08:31 Flush - Normal Saline IVF 10 ml Q12HR ANDREY Administration Ticagrelor 90 mg 02/23/19 09:00 03/02/19 08:30 Brilinta PO 90 mg BID ANDREY Administration - Exam General Appearance: NAD, awake alert Eye: PERRL, anicteric sclera ENT: normocephalic atraumatic, no oropharyngeal lesions Neck: supple, symmetric, no JVD, no thyromegaly Heart: RRR, no murmur, no gallops, no rubs Respiratory: CTAB, no wheezes, no ronchi, rales Respiratory - other findings: few basal rales Gastrointestinal: soft, non-tender, non-distended, normal bowel sounds Extremities: no cyanosis, no clubbing, 1+ LE edema Skin: normal turgor, no lesions Neurological: cranial nerve grossly intact, no focal deficits Musculoskeletal: normal tone, normal strength Psychiatric: normal affect, normal behavior Hosp A/P (1) NSTEMI (non-ST elevated myocardial infarction) Code(s): I21.4 - NON-ST ELEVATION (NSTEMI) MYOCARDIAL INFARCTION Status: Acute (2) Coronary stent thrombosis Code(s): T82.867A - THROMBOSIS DUE TO CARDIAC PROSTH DEV/GRFT, INITIAL ENCOUNTER Status: Acute Qualifiers: Encounter type: initial encounter Qualified Code(s): T82.867A - Thrombosis due to cardiac prosthetic devices, implants and grafts, initial encounter (3) Acute systolic heart failure, ACC/AHA stage C Code(s): I50.21 - ACUTE SYSTOLIC (CONGESTIVE) HEART FAILURE Status: Acute (4) JOAQUIN (acute kidney injury) Code(s): N17.9 - ACUTE KIDNEY FAILURE, UNSPECIFIED Status: Acute (5) Metabolic acidosis Code(s): E87.2 - ACIDOSIS Status: Resolved (6) Transaminitis Code(s): R74.0 - NONSPEC ELEV OF LEVELS OF TRANSAMNS & LACTIC ACID DEHYDRGNSE Status: Acute (7) Acute respiratory failure Code(s): J96.00 - ACUTE RESPIRATORY FAILURE, UNSP W HYPOXIA OR HYPERCAPNIA Status: Acute Qualifiers: Respiratory failure complication: hypoxia Qualified Code(s): J96.01 - Acute respiratory failure with hypoxia (8) DM type 2, uncontrolled, with neuropathy Code(s): E11.40 - TYPE 2 DIABETES MELLITUS WITH DIABETIC NEUROPATHY, UNSP; E11.65 - TYPE 2 DIABETES MELLITUS WITH HYPERGLYCEMIA Status: Chronic (9) Anxiety and depression Code(s): F41.9 - ANXIETY DISORDER, UNSPECIFIED; F32.9 - MAJOR DEPRESSIVE DISORDER, SINGLE EPISODE, UNSPECIFIED Status: Chronic (10) CAD (coronary artery disease) Code(s): I25.10 - ATHSCL HEART DISEASE OF [place] CORONARY ARTERY W/O ANG PCTRS Status: Chronic Qualifiers: Coronary Disease-Associated Artery/Lesion type: [place] artery Associated angina: with unstable angina (11) DM type 2 (diabetes mellitus, type 2) Status: Chronic Qualifiers: 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 use (12) Dyslipidemia Code(s): E78.5 - HYPERLIPIDEMIA, UNSPECIFIED Status: Chronic (13) HTN (hypertension) Code(s): I10 - ESSENTIAL (PRIMARY) HYPERTENSION Status: Chronic Qualifiers: (14) Morbid obesity with BMI of 45.0-49.9, adult Code(s): E66.01 - MORBID (SEVERE) OBESITY DUE TO EXCESS CALORIES; Z68.42 - BODY MASS INDEX (BMI) 45.0-49.9, ADULT Status: Acute (15) Microcytic anemia Code(s): D50.9 - IRON DEFICIENCY ANEMIA, UNSPECIFIED Status: Chronic (16) Hypokalemia Code(s): E87.6 - HYPOKALEMIA Status: Acute (17) JAEL on CPAP Code(s): G47.33 - OBSTRUCTIVE SLEEP APNEA (ADULT) (PEDIATRIC); Z99.89 - DEPENDENCE ON OTHER ENABLING MACHINES AND DEVICES Status: Chronic - Plan old records reviewed/req 02/26/19- continue dobutamine drib, continue lasix drip, continue bicarbonate, monitor labs, repeat labs tomorrow, medication reviewed as above, symptomatic treatment 02/27/19- currently on dobutaime drip, IV lasix, today Iron infusion, renal function improving, overall see improvement, medication reviewed as above, symptomatic treatment. 02/28/19- now off dobutamine, continue lasix, continue brilinta, ranexa, renal and liver function continue to improve, now will need to reduce oxygen as tolerated, most likely she may need home oxygen, will need life vest, discussed with son, medication reviewed as above, symptomatic treatment 03/01/19- today lasix reduced as per nephrology, will continue to optimize treatment for CHF, will need life vest on discharge, monitor labs, wean off oxygen as tolerated, cardiac rehab, replace potassium 03/02/19- pt has improvement, ok to transfer to floor, continue diuresis as per nephrology, await life vest arrangement, she may need evaluation for home oxygen , and consider escobar removal, continue cardiac rehab, monitor labs , adjust cardiac medication
[2019-03-02] MEDS: Furosemide 20 MG/2 ML VIAL SLOW IVP SCH ×2 (10:53→11:38)
[2019-03-02] MEDS ORDERED: Furosemide 20 MG/2 ML VIAL SLOW IVP SCH (11:30)
[2019-03-02] MEDS: Insulin Regular 300 UNITS/3 ML VIAL SC PRN ×2 (11:38→16:32)
--- NOTE | 2019-03-02 11:39 | PDOC.CPN ---
- Subjective Date: 03/02/19 Time: 11:37 Interval history: She is dong well. Continues to diurese well. - Review of Systems General: denies: fever/chills, weight/appetite/sleep changes, night sweats, fatigue Respiratory: denies: cough, congestion, shortness of breath, exercise intolerance Cardiovascular: denies: chest pain, palpitation, edema, paroxysmal nocturnal dyspnea, orthopnea Gastrointestinal: denies: nausea, vomiting, diarrhea, constipation, abd pain, GI bleeding Musculoskeletal: denies: pain, tenderness, stiffness, swelling, arthritis/ arthralgias Neurological: denies: numbness, syncope, seizure, weakness - Objective Allergies/Adverse Reactions: Allergies Allergy/AdvReac Type Severity Reaction Status Date / Time No Known Drug Allergies Allergy Verified 01/05/19 04:58 Visit Medications: Current Medications Acetaminophen (Tylenol) 325 mg PO Q4H PRN PRN Reason: Headache/Fever or Pain Last Admin: 02/28/19 17:35 Dose: 325 mg Hydrocodone Bitart/Acetaminophen ([place] 5/325) 1 tab PO Q4H PRN PRN Reason: Moderate Pain (4-6) Last Admin: 02/26/19 20:47 Dose: 1 tab Albuterol/Ipratropium (Duoneb) 3 ml NEB [id number] [facility] Last Admin: 03/02/19 07:00 Dose: 3 ml Artificial Tears (Tears Naturale) 2 drop EA EYE PRN PRN PRN Reason: Dry Eyes Aspirin (Aspirin Chewable) 81 mg PO DAILY [facility] Last Admin: 03/02/19 08:29 Dose: 81 mg Bisacodyl (Dulcolax) 10 mg SD DAILYPRN PRN PRN Reason: Constipation Bumetanide (Bumex) 1 mg PO BID-AC [facility] Last Admin: 03/02/19 08:27 Dose: 1 mg Carvedilol (Coreg) 3.125 mg PO BID-WM [facility] Last Admin: 03/02/19 08:29 Dose: 3.125 mg Cefdinir (Omnicef) 300 mg PO BID [facility] Stop: 03/04/19 09:01 Last Admin: 03/02/19 08:26 Dose: 300 mg Dextrose/Water (Dextrose 50%) 25 gm IVP PRN PRN PRN Reason: HYPOGLYCEMIA PROTOCOL Ezetimibe (Zetia) 10 mg PO DAILY [facility] Last Admin: 03/02/19 08:26 Dose: 10 mg Furosemide (Lasix) 20 mg SLOW IVP 1000 [facility] Stop: 03/02/19 12:00 Last Admin: 03/02/19 10:53 Dose: 20 mg Furosemide (Lasix) 20 mg SLOW IVP NOW [facility] Stop: 03/02/19 13:00 Glucagon (Glucagon) 1 mg IM PRN PRN PRN Reason: HYPOGLYCEMIA PROTOCOL Guaifenesin (Robitussin Sf) 200 mg PO Q4H PRN PRN Reason: Cough Dextrose/Water (D5w) 1,000 mls @ 0 mls/hr IV INF PRN PRN Reason: HYPOGLYCEMIA PROTOCOL Insulin Glargine 35 units/ (Miscellaneous Medication) 0.35 mls @ 0 mls/hr SC BID [facility] Last Admin: 03/02/19 08:36 Dose: 0.35 mls Insulin Human Regular (Humulin R) 0 units SC .AGGRESSIVE SLIDING PRN PRN Reason: Aggressive Sliding Scale Last Admin: 03/01/19 17:55 Dose: 3 unit Isosorbide Mononitrate (Imdur) 60 mg PO DAILY [facility] Last Admin: 03/02/19 08:29 Dose: 60 mg Loperamide HCl (Imodium) 2 mg PO PRN PRN PRN Reason: Diarrhea/Loose Stools Loratadine (Claritin) 10 mg PO DAILYPRN PRN PRN Reason: Sinus Symptoms Metolazone (Zaroxolyn) 5 mg PO 0830 [facility] Last Admin: 03/02/19 08:29 Dose: 5 mg Morphine Sulfate (Morphine) 4 mg SLOW IVP Q4H PRN PRN Reason: Chest Pain (7-10) Last Admin: 02/28/19 20:01 Dose: 4 mg Morphine Sulfate (Morphine) 2 mg SLOW IVP Q4H PRN PRN Reason: CHEST PAIN (4-6) Last Admin: 02/28/19 15:43 Dose: 2 mg Nitroglycerin (Nitrostat) 0.4 mg SL Q5MIN PRN PRN Reason: Chest Pain Last Admin: 02/23/19 19:20 Dose: 0.4 mg Ondansetron HCl (Zofran) 4 mg SLOW IVP Q4H PRN PRN Reason: Nausea/Vomiting Last Admin: 02/23/19 21:07 Dose: 4 mg Potassium Chloride (K-Dur) 40 meq PO TID [facility] Last Admin: 03/02/19 08:26 Dose: 40 meq Ranolazine (Ranexa) 1,000 mg PO BID [facility] Last Admin: 03/02/19 08:36 Dose: 1,000 mg Senna/Docusate Sodium (Senokot S) 2 tab PO BID PRN PRN Reason: Constipation Sertraline HCl (Zoloft) 100 mg PO DAILY [facility] Last Admin: 03/02/19 08:27 Dose: 100 mg Sodium Chloride (Flush - Normal Saline) 10 ml IVF PRN PRN PRN Reason: Saline Flush Sodium Chloride (Flush - Normal Saline) 10 ml IVF Q12HR [facility] Last Admin: 03/02/19 08:31 Dose: 10 ml Sodium Chloride ([place] Nasal [place] 0.65%) 0 ml EA NARE QIDPRN PRN PRN Reason: Nasal Congestion Throat Lozenges (Cepastat Lozenges) 1 ana PO Q2H PRN PRN Reason: Sore Throat Ticagrelor (Brilinta) 90 mg PO BID [facility] Last Admin: 03/02/19 08:30 Dose: 90 mg Vital Signs & Weight: Vital Signs Temp Pulse Resp Pulse Ox 03/02/19 08:00 98.3 F 95 03/02/19 07:00 75 23 H 97 03/02/19 04:00 98.8 F 03/02/19 02:16 72 18 97 03/02/19 02:14 97 03/02/19 00:00 98.7 F Weight 258 lb 8 oz - Physical Exam General: alert & oriented x3, no apparent distress HEENT: mucus membranes moist, normocephaly Neck: supple neck, midline trachea Cardiac: regular rate and rhythm, no murmur Lungs: clear to auscultation, no wheeze, rales, rhonchi Neuro: grossly intact, coordination normal Abdomen: active bowel sounds, soft, non-tender Skin: clear Musculoskeletal: normal range of motion, no pain - Labs Result Diagrams: 03/01/19 04:15 03/02/19 03:50 Troponin/CKMB CK-MB (CK-2) 24.3 ng/mL (0-6.6) H* 02/22/19 22:24 Troponin I 27.550 ng/mL (< 0.028) H* 02/23/19 10:50 - Telemetry Sinus rhythms and dysrhythmias: sinus rhythm - Assessment/Plan Assessment/Plan: 1. Acute anterior STEMI. In stent thrombosis. 2. Ischemic CM 3. LV function at 25-30% 4. New LBBB 5. Acute on chronic systolic heart failure. 6. T2DM 7. HTN 8. Obesity PLAN: - Stable, continue current meds. - Lifevest before discharge. - Lasix IV diuresis. - Continue Brilinta, ASA, Statin, BB, no ACEI due to renal function. - Replace K.
--- NOTE | 2019-03-02 16:55 | EKG ---
Test Reason : Blood Pressure : / mmHG Vent. Rate : 070 BPM Atrial Rate : 070 BPM P-R Int : 000 ms QRS Dur : 172 ms QT Int : 540 ms P-R-T Axes : 000 -30 090 degrees QTc Int : 583 ms Wide QRS rhythm with frequent , and consecutive Premature ventricular complexes and Fusion complexes Left axis deviation Left bundle branch block Abnormal ECG When compared with ECG of 23-FEB-2019 17:59, (Unconfirmed) Wide QRS rhythm has replaced Sinus rhythm Vent. rate has decreased BY 37 BPM Confirmed by LENNIE MURILLO (2) on 03/02/2019 4:55:18 PM Referred By: CHIDI Confirmed By:LENNIE MURILLO
[2019-03-02] MEDS: Acetaminophen 325 MG TAB PO PRN (22:47)
[2019-03-03 05:25] LABS: ALT (SGPT) 149 U/L (8-55); AST (SGOT) 31 U/L (5-34); Albumin 2.8 g/dL (3.5-5.0); Alkaline Phosphatase 106 U/L (40-110); Anion Gap 13 mmol/L (10-20); BUN (Urea Nitrogen) 43 mg/dL (7.0-18.7); Bilirubin, Total 0.5 mg/dL (0.2-1.2); Calc. Creatinine Clearance 93 mL/min (70-130); Carbon Dioxide 26 mmol/L (22-29); Chloride 99 mmol/L (98-107); Estimated GFR-MDRD 41; Globulin 3.7 g/dL (2.4-3.5); Glucose 119 mg/dL (70-105); Potassium 4.3 mmol/L (3.5-5.1); Protein, Total 6.5 g/dL (6.0-8.3); Sodium 134 mmol/L (136-145)
--- NOTE | 2019-03-03 09:29 | PRG ---
DATE OF SERVICE: 03/03/2019 SERVICE: Nephrology. SUBJECTIVE: A 48-year-old female, admitted due to acute myocardial infarction associated with cardiac decompensation and respiratory failure. Nephrology is following the patient for acute renal failure and volume overload. The patient is clinically improved. Off oxygen and doing a lot better. OBJECTIVE: VITAL SIGNS: Temperature 97.2, pulse 89, respiratory rate 20, SpO2 of 92% on room air, and blood pressure is 111/68. GENERAL: Obese female, in no obvious distress. Afebrile. Anicteric. Acyanotic. HEENT: Normocephalic, atraumatic. Oral mucosa is moist. CARDIOVASCULAR: Regular rhythm and rate with normal heart sounds 1 and 2. RESPIRATORY: Fair air entry bilaterally with few bibasilar crackles. No use of accessory muscles appreciated. GI: Obese, soft, nontender, nondistended with normal bowel sounds. UROGENITAL: Smith catheter is in place, but no urine is in urine bag. EXTREMITIES: Grossly normal looking, atraumatic with no obvious edema. 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 Cranial nerves 2 through 12 are grossly intact. DIAGNOSTIC DATA: CMP showed sodium 134, potassium 4.3, chloride 99, CO2 of 26, BUN 43, creatinine 1.36, glucose 119, calcium 9.0, total bilirubin 0.5, AST 31, ALT 149, alkaline phosphatase 106, total protein 6.5, albumin 2.8, and globulin 3.7. ASSESSMENT: 1. Acute renal failure: Due to cardiorenal syndrome related to acute cardiac decompensation. Improved with dobutamine and diuretics. Creatinine is down to 1.36 from peak of 4.80. 2. Volume overload: Due to acute cardiac decompensation. Improved greatly. 3. Hyponatremia: [place] to be due to metolazone therapy. 4. Metabolic acidosis: Resolved. 5. Hypokalemia: Repleted. 6. Acute respiratory failure due to acute congestive heart failure. Improved. Oxygen has been weaned off. 7. Acute myocardial infarction. 8. Ischemic cardiomyopathy with ejection fraction of 30. PLAN: 1. We will discontinue metolazone due to hyponatremia. 2. We will also discontinue potassium supplementation. We will instead start spironolactone given ischemic cardiomyopathy. We will continue Bumex 1 mg p.o. b.i.d. 3. We will discontinue Smith catheter since it is nonfunctional. Encourage spontaneous voiding. However, if the patient develops urinary retention, Smith catheter will have to be reinserted. 4. Increase activity. Other treatment as per Cardiology and primary attending. Job ID: [id number]
[2019-03-03] MEDS: Insulin Glargine 35 UNITS in Pre-Filled Syringe 1 EACH SC SCH ×2 (09:51→21:51)
[2019-03-03] MEDS: TICAGRELOR 90 MG TABLET PO SCH ×2 (09:53→21:49)
[2019-03-03] MEDS: Carvedilol 3.125 MG TAB PO SCH ×2 (09:54→17:21)
[2019-03-03] MEDS: Cefdinir 300 MG CAP PO SCH ×2 (09:54→21:49)
[2019-03-03] MEDS: Aspirin Chewable 81 MG TAB PO SCH (09:54)
[2019-03-03] MEDS: Spironolactone 25 MG TAB PO SCH ×2 (09:54→17:21)
[2019-03-03] MEDS: Ezetimibe 10 MG TAB PO SCH (09:54)
[2019-03-03] MEDS: Bumetanide 1 MG TAB PO SCH ×2 (09:55→17:22)
--- NOTE | 2019-03-03 10:12 | PDOC.HOSPP ---
- Subjective Encounter Date: 03/03/19 Encounter Time: 07:20 Subjective: Patient seen and examined. No new complaints. No overnight events - Objective Vital Signs & Weight: Vital Signs (12 hours) Temp Pulse Resp BP Pulse Ox 03/03/19 08:14 97.5 F L 81 20 136/65 98 03/03/19 07:14 92 L 03/03/19 07:13 89 20 93 L 03/03/19 03:36 97.2 F L 75 18 111/68 95 03/03/19 03:16 97 03/03/19 01:07 88 20 97 03/02/19 23:34 98.4 F 78 18 118/61 97 Weight Weight 266 lb 1.6 oz Most Recent Monitor Data Heart Rate from ECG 77 NIBP 126/70 NIBP BP-Mean 88 Respiration from ECG 27 SpO2 91 I&O: 03/02/19 03/03/19 03/04/19 06:59 06:59 06:59 Intake Total 904 876 Output Total 2339 5530 Balance -5864 -080 Result Diagrams: 03/01/19 04:15 03/03/19 04:28 Additional Labs: Accuchecks 03/03/19 03/02/19 03/02/19 05:48 19:46 16:12 POC Glucose 115 H 220 H 203 H 03/02/19 11:23 POC Glucose 249 H EKG Reviewed by me: Yes Hospitalist ROS - Review of Systems ENT: denies: ear pain, ear discharge, nose pain, nose discharge, nose congestion , mouth pain, mouth swelling, throat pain, throat swelling, other Respiratory: denies: cough, dry, shortness of breath, hemoptysis, SOB with excertion, pleuritic pain, sputum, wheezing, other Cardiovascular: denies: chest pain, palpitations, orthopnea, paroxysmal noc. dyspnea, edema, light headedness, other Gastrointestinal: denies: nausea, vomiting, abdominal pain, diarrhea, constipation, melena, hematochezia, other Genitourinary: denies: dysuria, frequency, incontinence, hematuria, retention, other Musculoskeletal: denies: neck pain, shoulder pain, arm pain, back pain, hand pain, leg pain, foot pain, other - Medication Medications: Active Medications Generic Name Dose Route Start Last Admin Trade Name Freq PRN Reason Stop Dose Admin Acetaminophen 325 mg 02/23/19 14:38 03/02/19 22:47 Tylenol PO 325 mg Q4H PRN Administration Headache/Fever or Pain Hydrocodone Bitart/Acetaminophen 1 tab 02/24/19 09:40 02/26/19 20:47 [place] 5/325 PO 1 tab Q4H PRN Administration Moderate Pain (4-6) Albuterol/Ipratropium 3 ml 02/23/19 13:00 03/03/19 07:13 Duoneb NEB 3 ml [id number] ANDREY Administration Aspirin 81 mg 02/23/19 09:00 03/03/19 09:54 Aspirin Chewable PO 81 mg DAILY ANDREY Administration Bumetanide 1 mg 03/02/19 07:30 03/03/19 09:55 Bumex PO 1 mg BID-AC ANDREY Administration Carvedilol 3.125 mg 02/25/19 08:00 03/03/19 09:54 Coreg PO 3.125 mg BID-WM ANDREY Administration Cefdinir 300 mg 02/27/19 09:00 03/03/19 09:54 Omnicef PO 03/04/19 09:01 300 mg BID ANDREY Administration Ezetimibe 10 mg 02/25/19 09:00 03/03/19 09:54 Zetia PO 10 mg DAILY ANDREY Administration Insulin Glargine 35 units/ 0.35 mls @ 0 mls/hr 02/25/19 09:00 03/03/19 09:51 Miscellaneous Medication SC 0.35 mls BID ANDREY Administration Insulin Human Regular 0 units 02/24/19 09:43 03/02/19 16:32 Humulin R SC 6 unit .AGGRESSIVE SLIDING PRN Administration Aggressive Sliding Scale Isosorbide Mononitrate 60 mg 02/23/19 09:00 03/03/19 09:54 Imdur PO 60 mg DAILY ANDREY Administration Morphine Sulfate 4 mg 02/23/19 01:04 02/28/19 20:01 Morphine SLOW IVP 4 mg Q4H PRN Administration Chest Pain (7-10) Morphine Sulfate 2 mg 02/23/19 01:11 02/28/19 15:43 Morphine SLOW IVP 2 mg Q4H PRN Administration CHEST PAIN (4-6) Nitroglycerin 0.4 mg 02/23/19 01:04 02/23/19 19:20 Nitrostat SL 0.4 mg Q5MIN PRN Administration Chest Pain Ondansetron HCl 4 mg 02/23/19 20:46 02/23/19 21:07 Zofran SLOW IVP 4 mg Q4H PRN Administration Nausea/Vomiting Ranolazine 1,000 mg 02/27/19 21:00 03/03/19 09:52 Ranexa PO 1,000 mg BID ANDREY Administration Sertraline HCl 100 mg 02/23/19 09:00 03/03/19 09:53 Zoloft PO 100 mg DAILY ANDREY Administration Sodium Chloride 10 ml 02/23/19 09:00 03/03/19 09:55 Flush - Normal Saline IVF 10 ml Q12HR ANDREY Administration Spironolactone 25 mg 03/03/19 08:00 03/03/19 09:54 Aldactone PO 25 mg BID-WM ANDREY Administration Ticagrelor 90 mg 02/23/19 09:00 03/03/19 09:53 Brilinta PO 90 mg BID ANDREY Administration - Exam General Appearance: NAD, awake alert Eye: PERRL, anicteric sclera ENT: normocephalic atraumatic, no oropharyngeal lesions Neck: supple, symmetric, no JVD, no thyromegaly Heart: RRR, no murmur, no gallops, no rubs Respiratory: CTAB, no wheezes, no rales Gastrointestinal: soft, non-tender, non-distended, normal bowel sounds Extremities: no cyanosis, no clubbing Skin: normal turgor, no lesions Neurological: cranial nerve grossly intact, no focal deficits Musculoskeletal: normal tone, normal strength Psychiatric: normal affect, normal behavior Hosp A/P (1) NSTEMI (non-ST elevated myocardial infarction) Code(s): I21.4 - NON-ST ELEVATION (NSTEMI) MYOCARDIAL INFARCTION Status: Acute (2) Coronary stent thrombosis Code(s): T82.867A - THROMBOSIS DUE TO CARDIAC PROSTH DEV/GRFT, INITIAL ENCOUNTER Status: Acute Qualifiers: Encounter type: initial encounter Qualified Code(s): T82.867A - Thrombosis due to cardiac prosthetic devices, implants and grafts, initial encounter (3) Acute systolic heart failure, ACC/AHA stage C Code(s): I50.21 - ACUTE SYSTOLIC (CONGESTIVE) HEART FAILURE Status: Acute (4) JOAQUIN (acute kidney injury) Code(s): N17.9 - ACUTE KIDNEY FAILURE, UNSPECIFIED Status: Acute (5) Metabolic acidosis Code(s): E87.2 - ACIDOSIS Status: Resolved (6) Transaminitis Code(s): R74.0 - NONSPEC ELEV OF LEVELS OF TRANSAMNS & LACTIC ACID DEHYDRGNSE Status: Acute (7) Acute respiratory failure Code(s): J96.00 - ACUTE RESPIRATORY FAILURE, UNSP W HYPOXIA OR HYPERCAPNIA Status: Acute Qualifiers: Respiratory failure complication: hypoxia Qualified Code(s): J96.01 - Acute respiratory failure with hypoxia (8) DM type 2, uncontrolled, with neuropathy Code(s): E11.40 - TYPE 2 DIABETES MELLITUS WITH DIABETIC NEUROPATHY, UNSP; E11.65 - TYPE 2 DIABETES MELLITUS WITH HYPERGLYCEMIA Status: Chronic (9) Anxiety and depression Code(s): F41.9 - ANXIETY DISORDER, UNSPECIFIED; F32.9 - MAJOR DEPRESSIVE DISORDER, SINGLE EPISODE, UNSPECIFIED Status: Chronic (10) CAD (coronary artery disease) Code(s): I25.10 - ATHSCL HEART DISEASE OF [place] CORONARY ARTERY W/O ANG PCTRS Status: Chronic Qualifiers: Coronary Disease-Associated Artery/Lesion type: [place] artery Associated angina: with unstable angina (11) DM type 2 (diabetes mellitus, type 2) Status: Chronic Qualifiers: 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 use (12) Dyslipidemia Code(s): E78.5 - HYPERLIPIDEMIA, UNSPECIFIED Status: Chronic (13) HTN (hypertension) Code(s): I10 - ESSENTIAL (PRIMARY) HYPERTENSION Status: Chronic Qualifiers: (14) Morbid obesity with BMI of 45.0-49.9, adult Code(s): E66.01 - MORBID (SEVERE) OBESITY DUE TO EXCESS CALORIES; Z68.42 - BODY MASS INDEX (BMI) 45.0-49.9, ADULT Status: Acute (15) Microcytic anemia Code(s): D50.9 - IRON DEFICIENCY ANEMIA, UNSPECIFIED Status: Chronic (16) Hypokalemia Code(s): E87.6 - HYPOKALEMIA Status: Acute (17) JAEL on CPAP Code(s): G47.33 - OBSTRUCTIVE SLEEP APNEA (ADULT) (PEDIATRIC); Z99.89 - DEPENDENCE ON OTHER ENABLING MACHINES AND DEVICES Status: Chronic - Plan old records reviewed/req, social director 02/26/19- continue dobutamine drib, continue lasix drip, continue bicarbonate, monitor labs, repeat labs tomorrow, medication reviewed as above, symptomatic treatment 02/27/19- currently on dobutaime drip, IV lasix, today Iron infusion, renal function improving, overall see improvement, medication reviewed as above, symptomatic treatment. 02/28/19- now off dobutamine, continue lasix, continue brilinta, ranexa, renal and liver function continue to improve, now will need to reduce oxygen as tolerated, most likely she may need home oxygen, will need life vest, discussed with son, medication reviewed as above, symptomatic treatment 03/01/19- today lasix reduced as per nephrology, will continue to optimize treatment for CHF, will need life vest on discharge, monitor labs, wean off oxygen as tolerated, cardiac rehab, replace potassium 03/02/19- pt has improvement, ok to transfer to floor, continue diuresis as per nephrology, await life vest arrangement, she may need evaluation for home oxygen , and consider escobar removal, continue cardiac rehab, monitor labs , adjust cardiac medication 03/03/19- DC escobar today, remove central line today, add lisinopril 2.5 mg po daily, adjust medication, check if she needs home oxygen today, life vest arrangement, outpt cardiac rehab, pt does not want inpt snu or rehab, medication reviewed as above, symptomatic treatment
--- NOTE | 2019-03-03 11:06 | PRG ---
DATE OF SERVICE: 03/03/2019 OBJECTIVE: VITAL SIGNS: Sats are 98%_ on 1 L, respiratory rate 20, temperature 97, pulse 81, blood pressure 136/65. She is complaining of some vague back pain. CHEST: Decreased breath sounds, no wheezing. CARDIAC: Normal S1, S2. No gallops. ABDOMEN: No masses. LABORATORY DATA: Creatinine 1.36. ASSESSMENT: Congestive heart failure, bronchitis, pneumonia, severe deconditioning, sleep apnea. Most of her problems are cardiac in origin. At this stage, she needs an outpatient sleep study. She has ongoing cardiac care. Pulmonary will follow at a distance, call if needed. Job ID: [id number] [facility]
[2019-03-03] MEDS: Insulin Regular 300 UNITS/3 ML VIAL SC PRN (11:27)
--- NOTE | 2019-03-03 13:58 | PRG ---
DATE OF SERVICE: 03/03/2019 I am seeing Mrs. Hayes at our [facility] as a followup. SUBJECTIVE: She seems to be doing better, transferred out of the ICU over the weekend, able to lie flat more than before. OBJECTIVE: VITAL SIGNS: Blood pressure is 119/57, heart rate is 73, respiratory rate is 20, temperature is 97.8 degrees Fahrenheit. The in's and out's reveal persistently negative. Fluid balance is -0.6 mL over the last 24 hours, but the previous 2 days, she had totaled -6 L over the last 96 hours prior to that. GENERAL: This is an alert and oriented woman, with elevated BMI, in no apparent distress. NECK: Supple. Jugular veins not distended. CHEST: Coarse. No crackles. HEART: Sounds are regular to rate and rhythm. No murmur or gallop. ABDOMEN: Benign. Bowel sounds positive. EXTREMITIES: Lower extremities, without edema, clubbing, or cyanosis. IMAGING DATABASE: Telemetry strips reviewed, revealing sinus rhythm, left bundle-branch block. No ventricular tachyarrhythmia. LABORATORY DATA: None new ASSESSMENT AND PLAN: Mrs. Hayes is a pleasant 48-year-old woman with history of recurrent microinfarction, recent re-admission for in-stent restenosis and requiring intervention in the beginning of this admit on the . She had also developed progressive heart failure. Her LVEF has further worsened. She also had progressive widening of her QRS with development of left bundle-branch block during this hospitalization. Now, she seems to be doing better with continued medical management of her heart failure. So far, no angina, and with fluid level optimization, her dyspnea symptoms also improving. We again discussed that due to her LVEF, she is at risk for future ventricular arrhythmias. LifeVest therapy would be reasonable to be discharged on. On the other hand, ICD implants would be likely best performed 3 months after the initial marking for an event some time around the May 24. Unless heart failure symptom is so pronounced that she would be deemed to need an immediate BiV pacing just for optimization. For now she is improving, we will continue with the plans of LifeVest placement and follow up in the office. Job ID: [id number]
--- NOTE | 2019-03-03 16:15 | PDOC.CPN ---
- Subjective Date: 03/03/19 Time: 16:14 Interval history: No new issues. No new complaints. - Review of Systems General: denies: fever/chills, weight/appetite/sleep changes, night sweats, fatigue Respiratory: denies: cough, congestion, shortness of breath, exercise intolerance Cardiovascular: denies: chest pain, palpitation, edema, paroxysmal nocturnal dyspnea, orthopnea Gastrointestinal: denies: nausea, vomiting, diarrhea, constipation, abd pain, GI bleeding Musculoskeletal: denies: pain, tenderness, stiffness, swelling, arthritis/ arthralgias Neurological: denies: numbness, syncope, seizure, weakness - Objective Allergies/Adverse Reactions: Allergies Allergy/AdvReac Type Severity Reaction Status Date / Time No Known Drug Allergies Allergy Verified 01/05/19 04:58 Visit Medications: Current Medications Acetaminophen (Tylenol) 325 mg PO Q4H PRN PRN Reason: Headache/Fever or Pain Last Admin: 03/02/19 22:47 Dose: 325 mg Hydrocodone Bitart/Acetaminophen ([place] 5/325) 1 tab PO Q4H PRN PRN Reason: Moderate Pain (4-6) Last Admin: 02/26/19 20:47 Dose: 1 tab Albuterol/Ipratropium (Duoneb) 3 ml NEB [id number] [facility] Last Admin: 03/03/19 13:01 Dose: 3 ml Artificial Tears (Tears Naturale) 2 drop EA EYE PRN PRN PRN Reason: Dry Eyes Aspirin (Aspirin Chewable) 81 mg PO DAILY [facility] Last Admin: 03/03/19 09:54 Dose: 81 mg Bisacodyl (Dulcolax) 10 mg TN DAILYPRN PRN PRN Reason: Constipation Bumetanide (Bumex) 1 mg PO BID-AC [facility] Last Admin: 03/03/19 09:55 Dose: 1 mg Carvedilol (Coreg) 3.125 mg PO BID-WM [facility] Last Admin: 03/03/19 09:54 Dose: 3.125 mg Cefdinir (Omnicef) 300 mg PO BID [facility] Stop: 03/04/19 09:01 Last Admin: 03/03/19 09:54 Dose: 300 mg Dextrose/Water (Dextrose 50%) 25 gm IVP PRN PRN PRN Reason: HYPOGLYCEMIA PROTOCOL Ezetimibe (Zetia) 10 mg PO DAILY [facility] Last Admin: 03/03/19 09:54 Dose: 10 mg Glucagon (Glucagon) 1 mg IM PRN PRN PRN Reason: HYPOGLYCEMIA PROTOCOL Guaifenesin (Robitussin Sf) 200 mg PO Q4H PRN PRN Reason: Cough Dextrose/Water (D5w) 1,000 mls @ 0 mls/hr IV INF PRN PRN Reason: HYPOGLYCEMIA PROTOCOL Insulin Glargine 35 units/ (Miscellaneous Medication) 0.35 mls @ 0 mls/hr SC BID [facility] Last Admin: 03/03/19 09:51 Dose: 0.35 mls Insulin Human Regular (Humulin R) 0 units SC .AGGRESSIVE SLIDING PRN PRN Reason: Aggressive Sliding Scale Last Admin: 03/03/19 11:27 Dose: 6 unit Isosorbide Mononitrate (Imdur) 60 mg PO DAILY [facility] Last Admin: 03/03/19 09:54 Dose: 60 mg Lisinopril (Zestril) 2.5 mg PO DAILY [facility] Loperamide HCl (Imodium) 2 mg PO PRN PRN PRN Reason: Diarrhea/Loose Stools Loratadine (Claritin) 10 mg PO DAILYPRN PRN PRN Reason: Sinus Symptoms Morphine Sulfate (Morphine) 4 mg SLOW IVP Q4H PRN PRN Reason: Chest Pain (7-10) Last Admin: 02/28/19 20:01 Dose: 4 mg Morphine Sulfate (Morphine) 2 mg SLOW IVP Q4H PRN PRN Reason: CHEST PAIN (4-6) Last Admin: 02/28/19 15:43 Dose: 2 mg Nitroglycerin (Nitrostat) 0.4 mg SL Q5MIN PRN PRN Reason: Chest Pain Last Admin: 02/23/19 19:20 Dose: 0.4 mg Ondansetron HCl (Zofran) 4 mg SLOW IVP Q4H PRN PRN Reason: Nausea/Vomiting Last Admin: 02/23/19 21:07 Dose: 4 mg Ranolazine (Ranexa) 1,000 mg PO BID [facility] Last Admin: 03/03/19 09:52 Dose: 1,000 mg Senna/Docusate Sodium (Senokot S) 2 tab PO BID PRN PRN Reason: Constipation Sertraline HCl (Zoloft) 100 mg PO DAILY [facility] Last Admin: 03/03/19 09:53 Dose: 100 mg Sodium Chloride (Flush - Normal Saline) 10 ml IVF PRN PRN PRN Reason: Saline Flush Sodium Chloride (Flush - Normal Saline) 10 ml IVF Q12HR [facility] Last Admin: 03/03/19 09:55 Dose: 10 ml Sodium Chloride ([place] Nasal [place] 0.65%) 0 ml EA NARE QIDPRN PRN PRN Reason: Nasal Congestion Spironolactone (Aldactone) 25 mg PO BID-[facility] Last Admin: 03/03/19 09:54 Dose: 25 mg Throat Lozenges (Cepastat Lozenges) 1 ana PO Q2H PRN PRN Reason: Sore Throat Ticagrelor (Brilinta) 90 mg PO BID [facility] Last Admin: 03/03/19 09:53 Dose: 90 mg Vital Signs & Weight: Vital Signs Temp Pulse Pulse Pulse Resp BP BP 03/03/19 15:36 98.2 F 81 16 03/03/19 13:01 83 18 03/03/19 11:57 97.8 F 73 20 03/03/19 09:09 80 80 116/58 L 123/67 03/03/19 08:20 03/03/19 08:14 97.5 F L 81 20 03/03/19 07:14 03/03/19 07:13 89 20 BP Pulse Ox Pulse Ox Pulse Ox 03/03/19 15:36 114/54 L 93 L 03/03/19 13:01 03/03/19 11:57 119/57 L 96 03/03/19 09:09 94 L 95 03/03/19 08:20 98 03/03/19 08:14 136/65 98 03/03/19 07:14 92 L 03/03/19 07:13 93 L Weight 266 lb 1.6 oz - Physical Exam General: alert & oriented x3, no apparent distress HEENT: mucus membranes moist Neck: supple neck Cardiac: regular rate and rhythm Lungs: clear to auscultation Neuro: grossly intact Abdomen: active bowel sounds Skin: clear Musculoskeletal: normal range of motion - Labs Result Diagrams: 03/01/19 04:15 03/03/19 04:28 Troponin/CKMB CK-MB (CK-2) 24.3 ng/mL (0-6.6) H* 02/22/19 22:24 Troponin I 27.550 ng/mL (< 0.028) H* 02/23/19 10:50 - Assessment/Plan Assessment/Plan: 1. Acute anterior STEMI. In stent thrombosis. 2. Ischemic CM 3. LV function at 25-30% 4. New LBBB 5. Acute on chronic systolic heart failure. 6. T2DM 7. HTN 8. Obesity PLAN: - Stable, continue current meds. - Lasix PO. - Continue Brilinta, ASA, Statin, BB, no ACEI due to renal function. - May discharge after Lifevest has been set up. - Follow up in the office in [address] Matute .
--- NOTE | 2019-03-03 19:40 | PDOC.EVN ---
Event Note - Event Note Event Note: Notified by RN, patient with unsuccessful life vest fitting. Will be done tomorrow. D/C order held.
[2019-03-04] MEDS: Acetaminophen 325 MG TAB PO PRN (00:35)
[2019-03-04 05:11] LABS: ALT (SGPT) 109 U/L (8-55); AST (SGOT) 24 U/L (5-34); Alkaline Phosphatase 103 U/L (40-110); Anion Gap 13 mmol/L (10-20); BUN (Urea Nitrogen) 39 mg/dL (7.0-18.7); Bilirubin, Total 0.4 mg/dL (0.2-1.2); Calc. Creatinine Clearance 94 mL/min (70-130); Calcium 9.1 mg/dL (7.8-10.44); Carbon Dioxide 26 mmol/L (22-29); Chloride 99 mmol/L (98-107); Estimated GFR-MDRD 41; Globulin 3.6 g/dL (2.4-3.5); Glucose 140 mg/dL (70-105); Potassium 4.2 mmol/L (3.5-5.1); Protein, Total 6.6 g/dL (6.0-8.3); Sodium 134 mmol/L (136-145)
[2019-03-04 05:26] VITALS: BMI 45.8
[2019-03-04] MEDS ORDERED: Furosemide 40 MG TAB PO SCH (07:30)
[2019-03-04] MEDS ORDERED: Lisinopril 2.5 MG TAB PO SCH (09:00)
[2019-03-04] MEDS: Bumetanide 1 MG TAB PO SCH ×2 (09:14→16:03)
[2019-03-04] MEDS: TICAGRELOR 90 MG TABLET PO SCH (09:14)
[2019-03-04] MEDS: Cefdinir 300 MG CAP PO SCH (09:14)
[2019-03-04] MEDS: Aspirin Chewable 81 MG TAB PO SCH (09:14)
[2019-03-04] MEDS: Carvedilol 3.125 MG TAB PO SCH ×2 (09:14→16:03)
[2019-03-04] MEDS: Ezetimibe 10 MG TAB PO SCH (09:14)
[2019-03-04] MEDS: Insulin Glargine 35 UNITS in Pre-Filled Syringe 1 EACH SC SCH (09:15)
[2019-03-04] MEDS: Spironolactone 25 MG TAB PO SCH ×2 (09:15→16:03)
--- NOTE | 2019-03-04 09:49 | PRG ---
DATE OF SERVICE: 03/04/2019 SERVICE: Nephrology. SUBJECTIVE: A 48-year-old female admitted due to acute myocardial infarction associated with acute cardiac decompensation and respiratory failure. Nephrology is seeing the patient for acute renal failure and volume overload. Clinically improved. The patient is off oxygen and swelling has improved markedly. The patient was started on lisinopril earlier today. Discharge is contemplated. OBJECTIVE: VITAL SIGNS: Temperature 98.5, pulse 79, respiratory rate 16, SpO2 of 92% on room air, and blood pressure is 146/85. GENERAL: Obese female, in no distress. Afebrile. Anicteric. Acyanotic. HEENT: Normocephalic, atraumatic. CARDIOVASCULAR: Regular rhythm and rate with normal heart sounds 1 and 2. RESPIRATORY: Fair air entry bilaterally with a few bibasilar crackles posteriorly. No rhonchi or use of accessory muscles appreciated. GI: Obese, soft, nontender, nondistended with normal bowel sounds. EXTREMITIES: Grossly normal looking, atraumatic with no obvious edema or erythema. ELECTRICAL PROJECT MANAGER: Conscious, alert, and oriented x3 with appropriate mental status. DIAGNOSTIC DATA: CMP showed sodium 134, potassium 4.2, chloride 99, CO2 of 26, BUN 39, creatinine 1.38, glucose 140, calcium 9.1, total bilirubin 0.1, AST 24, ALT 109, alkaline phosphatase 103, total protein 6.6, albumin 3.0, and globulin 3.6. ASSESSMENT: 1. Acute renal failure: Due to cardiorenal syndrome. Clinically improved. However, not yet back to baseline. 2. Mild hyponatremia: Thought to be related to thiazide diuretic. Thiazide diuretic has been discontinued. 3. Metabolic acidosis: Resolved. 4. Volume overload: Improved with diuretics. 5. Hyperkalemia: Initially due to acute renal failure, resolved. 6. Hypokalemia: Repleted with potassium supplementation. The patient now is on spironolactone, and lisinopril was started. 7. Acute myocardial infarction. 8. Acute on chronic systolic and diastolic heart failure. 9. Ischemic cardiomyopathy. 10. Diabetic mellitus. 11. Hypertension. 12. Obesity. PLAN: Continue current diuretic regimen of Bumex and spironolactone. Other treatment as per Cardiology and primary attending with commencement of lisinopril, the patient is at increased risk of worsening renal function and hyperkalemia. We will follow up with the patient within 1 week of discharge with repeat BMP. The patient can be discharged from Nephrology point of view. Fluid restriction recommended. Job ID: [id number]
--- NOTE | 2019-03-04 11:23 | DIS ---
DATE OF ADMISSION: 02/22/2019 DATE OF DISCHARGE: 03/04/2019 PRIMARY CARE PHYSICIAN: [facility] Call admission. DISCHARGE DISPOSITION: Home. PRIMARY DISCHARGE DIAGNOSES: 1. Acute anterior wall myocardial infarction. 2. Status post percutaneous coronary intervention/percutaneous transluminal coronary angioplasty of the mid left anterior descending artery. 3. Acute systolic and diastolic heart failure, ACC stage C, [place] [employer] stage II. 4. Acute respiratory failure with hypoxia due to congestive heart failure. 5. Acute kidney failure due to cardiorenal syndrome. 6. Acute myocardial infarction due to coronary stent thrombosis. 7. Abnormal electrolytes. 8. Transaminitis due to passive congestion. SECONDARY DISCHARGE DIAGNOSES: 1. Hypertension. 2. Dyslipidemia. 3. Diabetes, type 2. 4. Coronary artery disease. 5. Anxiety and depression. 6. Obstructive sleep apnea. 7. Microcytic anemia. 8. Morbid obesity with BMI of 45. PRIMARY PROCEDURE/OPERATION: 1. Cardiac catheterization was performed by Dr. Oliveira and done successful percutaneous coronary intervention/percutaneous transluminal coronary angioplasty of left anterior descending. 2. Echocardiography showed ejection fraction 25% to 30%, severe tricuspid regurgitation, and moderate mitral regurgitation. The patient had several chest x-ray. SIGNIFICANT LABORATORY DATA: WBC 12.4, hemoglobin 8.3, platelet 373. INR 1.1. Sodium 134, potassium 4.2, BUN 39, creatinine 1.38. AST 24, ALT 109, alkaline phosphatase 103, albumin 3.0. LDL 177. Urinalysis unremarkable. Blood culture and urine culture are negative. DISCHARGE MEDICATIONS: 1. Aspirin 81 mg daily. 2. Lipitor 80 mg daily. 3. Imdur 60 mg daily. 4. Zoloft 100 mg daily. 5. Imitrex 50 mg p.o. p.r.n. 6. Tramadol 50 mg t.i.d. p.r.n. 7. Nitroglycerin 0.4 mg p.r.n. as directed for chest pain. 8. Bumex 1 mg p.o. b.i.d. 9. Coreg 3.125 mg b.i.d. 10. Zetia 10 mg daily. 11. Lantus 35 units subcutaneous b.i.d. 12. Lisinopril 2.5 mg daily. 13. Ranexa 1000 mg p.o. b.i.d. 14. Aldactone 25 mg p.o. b.i.d. 15. Brilinta 90 mg p.o. b.i.d. CONTRAINDICATION: None. CODE STATUS: Full code. INPATIENT AUDIO/VISUAL OPERATOR: Cardiology group, Dr. Oliveira, was main primary initially while in hospital. Subsequently, Sound Team was following Dr. Archer and Pulmonary group was managing in the ICU. Dr. Joyce was consulted for AICD evaluation. Nephrology was managing with renal function. TEST RESULTS PENDING ON DISCHARGE: None. ALLERGIES: NO KNOWN DRUG ALLERGIES. DISCHARGE PLAN: Post hospital, the patient has appointment with cardiac rehab on March 17, 2019, at 1:15 p.m. The patient has appointment with Dr. Archer on March 13, 2019, at 3:15 p.m. The patient will follow up with Dr. Subhash Matute on April 07, 2019, at 11:30 a.m. The patient will follow up with Dr. Barrera in [address] Joyce as instructed. The patient has appointment with primary care physician on March 06, 2019, at 1:30 p.m. HOSPITAL COURSE: A 48-year-old female with above-mentioned medical problem, who was admitted by Dr. Oliveira. The patient had acute WI on admission. The patient was taken for cardiac catheterization. The patient had successful PCI done in mid and left LAD. The patient's acute WI was related with in-stent thrombosis. The patient also had acute systolic heart failure. Her EF was only 25% to 30%. The patient developed volume overload and acute CHF with pulmonary edema. The patient also developed cardiorenal syndrome with acute kidney failure and passive congestion in liver with abnormal LFT. The patient remained in ICU for respiratory failure secondary to CHF. She was treated with BiPAP. She was given dobutamine drip for hypotension and subsequently diuretic therapy was started when the patient's condition improved. At that point, her renal function and liver function started improving even with diuresis. The patient was making good diuretic response and her dyspnea was improving. By the time of discharge, the patient was no longer requiring any oxygen therapy and she was ambulatory and her vitals remained stable with adjustment of medication as above. By the time of discharge, Cardiology cleared her for discharge. Nephrology cleared her for discharge. International [employer] Consult[employer] evaluated for AICD, but the patient will need outpatient evaluation with repeat echocardiography in 3 months. The patient also evaluated by Pulmonary group and the patient will need outpatient sleep study for CPAP machine. Necessary the patient's education about heart diet, fluid restriction added while in the hospital with the patient. Above-mentioned medication sent to her pharmacy. The patient is overall medically stable for discharge once LifeVest is arranged. PHYSICAL EXAMINATION: I have seen and examined the patient at bedside today. VITAL SIGNS: Currently, temperature 98.5, pulse 77, respiratory rate 16, saturation 92% on room air, blood pressure 146/85, weight 267 pounds. GENERAL: The patient is currently alert, awake, in no obvious acute distress. HEENT: Head; normocephalic, atraumatic. Eyes; pupils round, reactive to light. Extraocular muscle intact. ENT, oropharynx within normal limits. LUNGS: Clear without any rhonchi or rales. CARDIAC: S1 and S2. Regular without any murmur. No gallop. No rub. ABDOMEN: Soft and benign. EXTREMITIES: No edema. NEUROLOGIC: Nonfocal examination. The patient is medically stable for discharge today. Job ID: [id number]
--- NOTE | 2019-03-04 15:10 | PDOC.CPN ---
- Subjective Date: 03/04/19 Time: 08:00 Interval history: Seen as follow up for cardiomyopathy. Plan to DC home today. Feeling well. ROS as below. - Review of Systems General: denies: fever/chills, weight/appetite/sleep changes, night sweats, fatigue Respiratory: denies: cough, congestion, shortness of breath, exercise intolerance Cardiovascular: denies: chest pain, palpitation, edema, paroxysmal nocturnal dyspnea, orthopnea Gastrointestinal: denies: nausea, vomiting, diarrhea, constipation, abd pain, GI bleeding Musculoskeletal: denies: pain, tenderness, stiffness, swelling, arthritis/ arthralgias Neurological: denies: numbness, syncope, seizure, weakness - Objective Allergies/Adverse Reactions: Allergies Allergy/AdvReac Type Severity Reaction Status Date / Time No Known Drug Allergies Allergy Verified 01/05/19 04:58 Visit Medications: Current Medications Acetaminophen (Tylenol) 325 mg PO Q4H PRN PRN Reason: Headache/Fever or Pain Last Admin: 03/04/19 00:35 Dose: 325 mg Hydrocodone Bitart/Acetaminophen ([place] 5/325) 1 tab PO Q4H PRN PRN Reason: Moderate Pain (4-6) Last Admin: 02/26/19 20:47 Dose: 1 tab Albuterol/Ipratropium (Duoneb) 3 ml NEB [id number] Last Admin: 03/04/19 13:24 Dose: 3 ml Artificial Tears (Tears Naturale) 2 drop EA EYE PRN PRN PRN Reason: Dry Eyes Aspirin (Aspirin Chewable) 81 mg PO DAILY [facility] Last Admin: 03/04/19 09:14 Dose: 81 mg Bisacodyl (Dulcolax) 10 mg NM DAILYPRN PRN PRN Reason: Constipation Bumetanide (Bumex) 1 mg PO BID-[facility] Last Admin: 03/04/19 09:14 Dose: 1 mg Carvedilol (Coreg) 3.125 mg PO BID-[facility] Last Admin: 03/04/19 09:14 Dose: 3.125 mg Dextrose/Water (Dextrose 50%) 25 gm IVP PRN PRN PRN Reason: HYPOGLYCEMIA PROTOCOL Ezetimibe (Zetia) 10 mg PO DAILY [facility] Last Admin: 03/04/19 09:14 Dose: 10 mg Furosemide (Lasix) 40 mg PO DAILY-[facility] Last Admin: 03/04/19 09:14 Dose: 40 mg Glucagon (Glucagon) 1 mg IM PRN PRN PRN Reason: HYPOGLYCEMIA PROTOCOL Guaifenesin (Robitussin Sf) 200 mg PO Q4H PRN PRN Reason: Cough Dextrose/Water (D5w) 1,000 mls @ 0 mls/hr IV INF PRN PRN Reason: HYPOGLYCEMIA PROTOCOL Insulin Glargine 35 units/ (Miscellaneous Medication) 0.35 mls @ 0 mls/hr SC BID [facility] Last Admin: 03/04/19 09:15 Dose: 0.35 mls Insulin Human Regular (Humulin R) 0 units SC .AGGRESSIVE SLIDING PRN PRN Reason: Aggressive Sliding Scale Last Admin: 03/03/19 11:27 Dose: 6 unit Isosorbide Mononitrate (Imdur) 60 mg PO DAILY [facility] Last Admin: 03/04/19 09:14 Dose: 60 mg Lisinopril (Zestril) 2.5 mg PO DAILY [facility] Last Admin: 03/04/19 09:14 Dose: 2.5 mg Loperamide HCl (Imodium) 2 mg PO PRN PRN PRN Reason: Diarrhea/Loose Stools Loratadine (Claritin) 10 mg PO DAILYPRN PRN PRN Reason: Sinus Symptoms Morphine Sulfate (Morphine) 4 mg SLOW IVP Q4H PRN PRN Reason: Chest Pain (7-10) Last Admin: 02/28/19 20:01 Dose: 4 mg Morphine Sulfate (Morphine) 2 mg SLOW IVP Q4H PRN PRN Reason: CHEST PAIN (4-6) Last Admin: 02/28/19 15:43 Dose: 2 mg Nitroglycerin (Nitrostat) 0.4 mg SL Q5MIN PRN PRN Reason: Chest Pain Last Admin: 02/23/19 19:20 Dose: 0.4 mg Ondansetron HCl (Zofran) 4 mg SLOW IVP Q4H PRN PRN Reason: Nausea/Vomiting Last Admin: 02/23/19 21:07 Dose: 4 mg Ranolazine (Ranexa) 1,000 mg PO BID [facility] Last Admin: 03/04/19 09:14 Dose: 1,000 mg Senna/Docusate Sodium (Senokot S) 2 tab PO BID PRN PRN Reason: Constipation Sertraline HCl (Zoloft) 100 mg PO DAILY [facility] Last Admin: 03/04/19 09:15 Dose: 100 mg Sodium Chloride (Flush - Normal Saline) 10 ml IVF PRN PRN PRN Reason: Saline Flush Sodium Chloride (Flush - Normal Saline) 10 ml IVF Q12HR [facility] Last Admin: 03/04/19 09:16 Dose: Not Given Sodium Chloride ([place] Nasal [place] 0.65%) 0 ml EA NARE QIDPRN PRN PRN Reason: Nasal Congestion Spironolactone (Aldactone) 25 mg PO BID-[facility] Last Admin: 03/04/19 09:15 Dose: 25 mg Throat Lozenges (Cepastat Lozenges) 1 ana PO Q2H PRN PRN Reason: Sore Throat Ticagrelor (Brilinta) 90 mg PO BID [facility] Last Admin: 03/04/19 09:14 Dose: 90 mg Vital Signs & Weight: Vital Signs Temp Pulse Pulse Resp BP BP BP 03/04/19 13:24 76 16 03/04/19 11:27 98.6 F 78 18 128/68 03/04/19 10:14 84 135/68 03/04/19 09:15 03/04/19 09:14 77 146/85 H 03/04/19 07:46 98.5 F 79 16 146/85 H 03/04/19 06:13 75 16 03/04/19 04:30 98.4 F 76 24 H 132/62 Pulse Ox 03/04/19 13:24 98 03/04/19 11:27 93 L 03/04/19 10:14 03/04/19 09:15 92 L 03/04/19 09:14 03/04/19 07:46 92 L 03/04/19 06:13 94 L 03/04/19 04:30 89 L Weight 267 lb 1.6 oz - Physical Exam General: alert & oriented x3, appears well, no apparent distress HEENT: mucus membranes moist, normocephaly Neck: supple neck, midline trachea, no JVD/HJR, no masses, no bruit, no lymphadenopathy, no thromegaly Cardiac: regular rate and rhythm, no murmur, regular rate Lungs: clear to auscultation, normal breath sounds, normal exam, no wheeze, rales, rhonchi Neuro: grossly intact, no lateralizing findings Abdomen: unremarkable, active bowel sounds Skin: clear - Labs Result Diagrams: 03/01/19 04:15 03/04/19 04:33 Troponin/CKMB CK-MB (CK-2) 24.3 ng/mL (0-6.6) H* 02/22/19 22:24 Troponin I 27.550 ng/mL (< 0.028) H* 02/23/19 10:50 - Telemetry Sinus rhythms and dysrhythmias: sinus rhythm (1st degree AVB) - Assessment/Plan Assessment/Plan: 1. CAD, recurrent microischemia 2. HFrEF 3. LBBB -improved since admission Fitted with lifevest. Recheck EF after 3 months of optimal medical management. If </= 35%, consider Bi-V ICD
[2019-03-04 16:02] VITALS: BP 140/67; TEMP 98.5
[2019-03-04] MEDS: Insulin Regular 300 UNITS/3 ML VIAL SC PRN ×2 (16:03→17:54)
[2019-03-05] MEDS ORDERED: FLU VACC QS2019-20(6MOS UP)/PF 60 MCG/0.5 ML SYRINGE IM ONE (09:00)
== END 2019-03-04 18:00 | disposition home or self-care (01) | DRG 250 ==
LOC: ERS 22:20 → CCL 23:00 → CCU 23:51 → 2SE 03-02 08:03
PROVIDERS: ADMIT Internal Medicine Cardiovascular Disease; ATTEND Internal Medicine Cardiovascular Disease
PROC: 02703ZZ Dilation of Coronary Artery, One Artery, Percutaneous Approach (ICD-10-PCS; principal; 2019-02-22)
PROC: 4A023N7 Measurement of Cardiac Sampling and Pressure, Left Heart, Percutaneous Approach (ICD-10-PCS; 2019-02-22)
PROC: B2151ZZ Fluoroscopy of Left Heart using Low Osmolar Contrast (ICD-10-PCS; 2019-02-22)
PROC: B2111ZZ Fluoroscopy of Multiple Coronary Arteries using Low Osmolar Contrast (ICD-10-PCS; 2019-02-22)
PROC: 3E03317 Introduction of Other Thrombolytic into Peripheral Vein, Percutaneous Approach (ICD-10-PCS; 2019-02-22)
PROC: 02JA3ZZ Inspection of Heart, Percutaneous Approach (ICD-10-PCS; 2019-02-22)
PROC: 02H633Z Insertion of Infusion Device into Right Atrium, Percutaneous Approach (ICD-10-PCS; 2019-02-27)
PROC: B548ZZA Ultrasonography of Superior Vena Cava, Guidance (ICD-10-PCS; 2019-02-27)
PROC: 3E033XZ Introduction of Vasopressor into Peripheral Vein, Percutaneous Approach (ICD-10-PCS; 2019-02-27)
PROC: 5A09357 Assistance with Respiratory Ventilation, Less than 24 Consecutive Hours, Continuous Positive Airway Pressure (ICD-10-PCS; 2019-02-27)
DX: I97.190 Other postprocedural cardiac functional disturbances following cardiac surgery (principal); I21.09 ST elevation (STEMI) myocardial infarction involving other coronary artery of anterior wall; J96.01 Acute respiratory failure with hypoxia; I50.43 Acute on chronic combined systolic (congestive) and diastolic (congestive) heart failure; R57.0 Cardiogenic shock; G93.41 Metabolic encephalopathy; T82.867A Thrombosis due to cardiac prosthetic devices, implants and grafts, initial encounter; I25.110 Atherosclerotic heart disease of native coronary artery with unstable angina pectoris; N17.9 Acute kidney failure, unspecified; E87.1 Hypo-osmolality and hyponatremia; E87.2 Acidosis; Z68.42 Body mass index [BMI] 45.0-49.9, adult; E78.5 Hyperlipidemia, unspecified; E78.00 Pure hypercholesterolemia, unspecified; F32.9 Major depressive disorder, single episode, unspecified; E66.01 Morbid (severe) obesity due to excess calories; G47.33 Obstructive sleep apnea (adult) (pediatric); G43.909 Migraine, unspecified, not intractable, without status migrainosus; I11.0 Hypertensive heart disease with heart failure; F41.9 Anxiety disorder, unspecified; E87.5 Hyperkalemia; I25.5 Ischemic cardiomyopathy; D50.9 Iron deficiency anemia, unspecified; I44.7 Left bundle-branch block, unspecified; K76.1 Chronic passive congestion of liver; E11.40 Type 2 diabetes mellitus with diabetic neuropathy, unspecified; E11.65 Type 2 diabetes mellitus with hyperglycemia; Z79.4 Long term (current) use of insulin; I25.2 Old myocardial infarction; Z79.899 Other long term (current) drug therapy; Z79.82 Long term (current) use of aspirin; Z79.02 Long term (current) use of antithrombotics/antiplatelets; N14.1 Nephropathy induced by other drugs, medicaments and biological substances; T50.8X5A Adverse effect of diagnostic agents, initial encounter; E87.6 Hypokalemia; T50.2X5A Adverse effect of carbonic-anhydrase inhibitors, benzothiadiazides and other diuretics, initial encounter; Y83.1 Surgical operation with implant of artificial internal device as the cause of abnormal reaction of the patient, or of later complication, without mention of misadventure at the time of the procedure
CPT/HCPCS: 36415; 36416; 71045; 80048; 80053; 80061; 81001; 82553; 82570; 82728; 82805; 83540; 83550; 83690; 83735; 83930; 83935; 84100; 84156; 84300; 84484; 84540; 85025; 85347; 85610; 85730; 87040; 87086; 90471; 90686; 92920; 92973; 92977; 93005; 93010; 93306; 93458; 94640; 94660; 94760; 96374; 99152; 99153; C1757; C1769; C1887; G0008; J0461; J0692; J1250; J1644; J1815; J1940; J2001; J2250; J2270; J2405; J2916; J3246; J3480; J3490; J7070; J7620

== ENCOUNTER 2019-03-20 17:48 | Observation (INO) | payer BC ==
[2019-03-20] MEDS ORDERED: Ondansetron ODT 4 MG TAB ONE (18:34)
[2019-03-20] MEDS ORDERED: Ondansetron PF 4 MG/2 ML Vial ONE (18:34)
[2019-03-20 19:23] LABS: #Eosinphils 0.5 thou/uL (0.0-0.7); #Monocytes 0.4 thou/uL (0.11-0.59); #Neutrophils 5.6 thou/uL (1.40-6.50); %Basophils 0.5 % (0.0-1.0); %Eosinophils 5.9 % (0.0-10.0); %Lymphocytes 23.2 % (21.0-51.0); %Monocytes 4.8 % (0.0-10.0); %Neutrophils 65.6 % (42.0-75.0); Hemoglobin 11.5 g/dL (12.0-16.0); Mean Corpuscular HGB CONC 32.8 g/dL (32.0-36.0); Mean Corpuscular Hemoglobin 24.7 pg (27.0-31.0); Mean Corpuscular Volume 75.3 fL (78.0-98.0); Platelet Count 298 thou/uL (130-400); RBC Distribution Width 14.5 % (11.5-14.5); Red Blood Cell (RBC) Count 4.66 mill/uL (4.20-5.40); White Blood Cell (WBC) Count 8.5 thou/uL (4.8-10.8)
[2019-03-20 19:30] LABS: INR-International Normal Ratio 1.1; PTT 47.7 SEC (22.9-36.1); Prothrombin Time 14.3 SEC (12.0-14.7)
--- NOTE | 2019-03-20 19:34 | RAD ---
Exam: Chest 2 views HISTORY:Pain Comparison: 01/01/2018 FINDINGS: Lungs: No masses or consolidation. Cardiac silhouette: Normal size Pulmonary vessels: Normal Pleural Spaces: Clear Pneumothorax: None Osseous abnormalities: None of acuity. IMPRESSION: No focal consolidation.
[2019-03-20 19:46] LABS: ALT (SGPT) 14 U/L (8-55); AST (SGOT) 11 U/L (5-34); Alkaline Phosphatase 92 U/L (40-110); Anion Gap 14 mmol/L (10-20); BUN (Urea Nitrogen) 31 mg/dL (7.0-18.7); Bilirubin, Total 0.4 mg/dL (0.2-1.2); CK (CPK) 39 U/L (29-168); Calc. Creatinine Clearance 0 mL/min (70-130); Carbon Dioxide 26 mmol/L (22-29); Chloride 98 mmol/L (98-107); Estimated GFR-MDRD 29; Glucose 211 mg/dL (70-105); Lipase 65 U/L (8-78); Potassium 3.8 mmol/L (3.5-5.1); Sodium 134 mmol/L (136-145)
[2019-03-20 20:17] LABS: CKMB 1.3 ng/mL (0-6.6)
--- NOTE | 2019-03-20 20:58 | PDOC.FPRHP ---
- History of Present Illness History of Present Illness: 48 yo F here for chest pain. Reports chest pain in the center of her chest. Reports pain feeling like pressure. Pain radiates to the back. Pt hasn't been taking anything for the pain. Pain comes and goes. Pain lasted a couple hours earlier and then went away on its own. Pain is back again. Denies any fever or chills. Pt reports feeling a little weak after vomiting. Pt reports working outside today and getting SOB which got better with rest. Last time pt threw up was after lunch today. 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 Pt denies any swelling in her feet. - Allergies/Adverse Reactions Allergies Allergy/AdvReac Type Severity Reaction Status Date / Time No Known Drug Allergies Allergy Verified 01/05/19 04:58 - Home Medications Medication Instructions Recorded Confirmed Type Sertraline HCl [Zoloft] 4 tab PO DAILY 05/05/18 02/23/19 History Aspirin Chewable [Aspirin Chewable 1 tab PO DAILY 11/08/18 02/23/19 History Tablet] Atorvastatin Calcium [Lipitor] 2 tab PO DAILY 11/08/18 02/23/19 History Isosorbide Mononitrate [Imdur] 1 tab PO DAILY 11/08/18 02/23/19 History SUMAtriptan Succinate [Imitrex] 1 tab PO PRN PRN 11/08/18 02/23/19 History Ezetimibe [Zetia] 10 mg PO DAILY tab 11/12/18 02/23/19 Rx Nitroglycerin [Nitrostat] 0.4 mg PO Q5MIN PRN tab 11/12/18 02/23/19 Rx traMADol HCl [Tramadol HCl] 50 mg PO TID PRN 01/05/19 02/23/19 History Ranolazine [Ranexa] 1,000 mg PO BID #60 tab 01/07/19 02/23/19 Rx Bumetanide [Bumex] 1 mg PO BID-AC #60 tab 03/03/19 Rx Carvedilol [Coreg] 3.125 mg PO BID-WM #60 tab 03/03/19 Rx Insulin Glargine [Lantus Vial] 35 units SC BID #1 vial 03/03/19 Rx Lisinopril 2.5 mg PO DAILY #30 tablet 03/03/19 Rx Spironolactone [Aldactone] 25 mg PO BID-WM #60 tab 03/03/19 Rx Ticagrelor [Brilinta] 90 mg PO BID #60 tab 03/03/19 Rx - History PMHx: PSHx: FHx: Social: - Review of Systems General: reports: weight/appetite/sleep changes, fatigue. denies: fever/chills , night sweats Eyes: denies: eye pain, vision changes ENT: denies: nasal congestion, rhinorrhea Respiratory: reports: cough (Has chronic cough that comes and goes), shortness of breath (with excercise). denies: congestion, exercise intolerance Cardiovascular: reports: chest pain, edema (reports has edema which she takes lasix for). denies: palpitation, paroxysmal nocturnal dyspnea, orthopnea Gastrointestinal: reports: nausea, vomiting, abdominal pain. denies: diarrhea, constipation, GI bleeding Genitourinary: denies: incontinence, dysuria, polyuria Skin: denies: rashes, lesions, jaundice Musculoskeletal: denies: pain, tenderness, swelling, arthritis/arthralgias Neurological: reports: other (Reports having headaches the last 4 days.) Psychological: denies: anxiety, depression - Vital signs BP: [134/81] HR: [87] RR: [18] Tmax: [98.8] Pox: [93]% on [RA] Wt: [] FMR H&P: Results - Labs Result Diagrams: 03/20/19 19:05 03/20/19 19:05 Lab results: WBC 8.5 thou/uL (4.8-10.8) 03/20/19 19:05 Hgb 11.5 g/dL (12.0-16.0) L 03/20/19 19:05 Hct 35.1 % (36.0-47.0) L 03/20/19 19:05 MCV 75.3 fL (78.0-98.0) L 03/20/19 19:05 Plt Count 298 thou/uL (130-400) 03/20/19 19:05 Neutrophils % 65.6 % (42.0-75.0) 03/20/19 19:05 Sodium 134 mmol/L (136-145) L 03/20/19 19:05 Potassium 3.8 mmol/L (3.5-5.1) 03/20/19 19:05 Chloride 98 mmol/L (98-107) 03/20/19 19:05 Carbon Dioxide 26 mmol/L (22-29) 03/20/19 19:05 BUN 31 mg/dL (7.0-18.7) H 03/20/19 19:05 Creatinine 1.83 mg/dL (0.6-1.1) H 03/20/19 19:05 Glucose 211 mg/dL (70-105) H 03/20/19 19:05 Calcium 10.0 mg/dL (7.8-10.44) 03/20/19 19:05 Total Bilirubin 0.4 mg/dL (0.2-1.2) 03/20/19 19:05 AST 11 U/L (5-34) 03/20/19 19:05 ALT 14 U/L (8-55) 03/20/19 19:05 Alkaline Phosphatase 92 U/L (40-110) 03/20/19 19:05 Creatine Kinase 39 U/L (29-168) 03/20/19 19:05 CK-MB (CK-2) 1.3 ng/mL (0-6.6) 03/20/19 19:05 B-Natriuretic Peptide 262.2 pg/mL (0-100) H 03/20/19 19:05 Serum Total Protein 8.0 g/dL (6.0-8.3) 03/20/19 19:05 Albumin 4.0 g/dL (3.5-5.0) 03/20/19 19:05 Lipase 65 U/L (8-78) 03/20/19 19:05 FMR H&P: Upper Level - Plan Date/Time: 03/20/192055 I, [], have evaluated this patient and agree with findings/plan as outlined by application support intern resident. Pertinent changes/additions are listed here.
[2019-03-20 23:05] LABS: Troponin I 0.068 ng/mL (< 0.028)
[2019-03-21 00:37] VITALS: BMI 41.0
[2019-03-21 01:38] LABS: Troponin I 0.043 ng/mL (< 0.028)
[2019-03-21] MEDS ORDERED: Nitroglycerin 0.4 MG TAB (25 Tab Bottle) SL PRN (02:20)
[2019-03-21] MEDS ORDERED: Dextrose 5% in Water 1,000 ML IV PRN (02:22)
[2019-03-21] MEDS ORDERED: Dextrose 50% Abboject 50 ML SYRINGE SLOW IVP PRN (02:22)
[2019-03-21] MEDS ORDERED: HumaLOG 300 UNITS/3 ML VIAL SC PRN ×2 (02:22)
[2019-03-21] MEDS ORDERED: Ondansetron ODT 4 MG TAB PO PRN (02:23)
[2019-03-21] MEDS ORDERED: Ondansetron PF 4 MG/2 ML Vial IVP PRN (02:23)
[2019-03-21] MEDS: Sodium Chloride 0.9% 1,000 ML IV SCH ×2 (03:10→19:27)
--- NOTE | 2019-03-21 03:49 | HP ---
ADMISSION TIME: 0100 hours. PRIMARY CARE PHYSICIAN: Sherif Austin MD CHIEF COMPLAINT: Chest pain. HISTORY OF PRESENT ILLNESS: Ms. Hayes is a very pleasant 48-year-old woman, with a known history of cardiomyopathy for which she is on LifeVest and history of coronary artery disease, status post 8 cardiac stents and NM x4 (last one in February 2019), who presents with complaints of chest pain. The patient states the pain started approximately 4:30 p.m. this afternoon and states it was in the center of her chest radiating through to her back, rating 8/10 in severity. She did not take anything for this at home and states it remained constant for approximately 2 hours. She was brought to the emergency department by her brother. In the ED, she had an EKG done that showed normal sinus rhythm with a heart rate of 97, no ST changes or T-wave abnormalities. She reported having issues with nausea and vomiting for the last 4 days. The patient states the vomiting has been postprandial, occurring approximately 30 minutes after eating. She has been tolerating all other intake including liquid and pills until today when she experienced vomiting after drinking liquids. She reports having occasional headaches for the last 4 days and also having bilateral lower extremity leg cramping. The patient states she has not had any abdominal pain. Denies any shortness of breath, cough, or hemoptysis. No dizziness or blurred vision. Denies having any changes with her stools. Reports having her last bowel movement this morning which was normal. Denies having any urinary symptoms. No recent fevers, chills, or sweats. All other review of systems are negative. PAST MEDICAL HISTORY: 1. Coronary artery disease. 2. NM x4, last one in February 2019. 3. Hyperlipidemia. 4. Obesity. 5. Type 2 diabetes mellitus, on insulin. 6. Hypertension. 7. Cardiomyopathy, on LifeVest. 8. Left bundle-branch block. 9. Depression. 10. Anxiety. PAST SURGICAL HISTORY: 1. Cardiac stents x8. 2. Right neck tumor removal. SOCIAL HISTORY: The patient lives with her family. Denies any smoking or alcohol consumption. No illicit drug use. ALLERGIES: NO KNOWN DRUG ALLERGIES. CURRENT MEDICATIONS: 1. Ranexa. 2. Lisinopril. 3. Aspirin. 4. Atorvastatin. 5. Imdur. 6. Coreg. 7. Bumetanide. 8. Lantus. 9. Spironolactone. 10. Brilinta. 11. Sertraline. 12. Amitriptyline. 13. Zetia. 14. Nitroglycerin. 15. Tramadol. PHYSICAL EXAMINATION: GENERAL: The patient appears obese, well developed, in no acute distress, resting comfortably in bed. VITAL SIGNS: Temperature 98.5, pulse 73, respirations 15, O2 saturation 99% on room air, blood pressure 119/67. HEENT: Normocephalic and atraumatic. Pupils are equal, round, and reactive to light. Sclerae without icterus. Oropharynx is clear. NECK: Supple. LUNGS: Clear to auscultation bilaterally without wheezes, rales, or rhonchi. CARDIAC regular rate and rhythm. No chest wall tenderness. ABDOMEN: Soft, obese, nontender, nondistended. Normoactive bowel sounds present. No guarding or rigidity. EXTREMITIES: No lower leg swelling, edema, or calf tenderness. SKIN: Without rash or jaundice. NEUROLOGIC: Alert and oriented x3. No neuro deficits. LABORATORY STUDIES: White blood count 8.2, hemoglobin 11.5, hematocrit 35.1, platelets 298. Sodium 134, potassium 3.8, BUN 31, creatinine 1.83, GFR 29, glucose 111, calcium 10, total bilirubin 0.4. LFTs unremarkable. Lipase 65. Troponin 0.049, 0.068, 0.043. BNP 262.2. IMAGING DATA: Chest x-ray, 03/20/2019. No acute changes. IMPRESSION AND PLAN: Ms. Hayes is a pleasant 48-year-old woman, who has been referred for management of the following. 1. Chest pain. The patient with a strong history of coronary artery disease, cardiomyopathy, had multiple myocardial infarctions in the past. Initial troponin was indeterminate and 3rd troponin is trending downward. BNP 272. The patient is asymptomatic at present. EKG unremarkable. Given her history, we will place consultation with Dr. Matute, her bulker. 2. Postprandial nausea, vomiting. The patient reports having vomiting 30 minutes after meals for the last 4 days. Today, she started having vomiting when attempting to drink liquids. No pain on exam. LFTs unremarkable, which we will recheck with morning labs and the patient with normal bowel movements. No fevers, chills, or sweats. This could potentially be due to gastroparesis given her underlying insulin-dependent diabetes. At present, she remains n.p.o. May benefit from Reglan, for day team to decide. 3. Acute on chronic kidney injury. The patient with creatinine of 1.83 and GFR of 29, as well as BUN of 31. These are worse from her baseline. We will give gentle IV fluids and continue to monitor renal function. Avoid any nephrotoxic agents. 4. Hypertension. Resume home medications once verified. Monitor blood pressure. 5. Diabetes mellitus. Initiate insulin sliding scale. 6. Lower extremity cramping. We will check magnesium. 7. Gastrointestinal prophylaxis. Famotidine 20 mg IV b.i.d. 8. Deep venous thrombosis prophylaxis. Mechanical SCDs. 9. Code status full. Her surrogate decision maker is her sister, Teetee Lang. The patient's case to be discussed with attending for further recommendations. Job ID: [id number] [id number]
[2019-03-21 04:34] LABS: #Eosinphils 0.5 thou/uL (0.0-0.7); #Monocytes 0.4 thou/uL (0.11-0.59); #Neutrophils 4.3 thou/uL (1.40-6.50); %Basophils 0.3 % (0.0-1.0); %Eosinophils 6.5 % (0.0-10.0); %Lymphocytes 27.8 % (21.0-51.0); %Neutrophils 59.5 % (42.0-75.0); Hemoglobin 10.5 g/dL (12.0-16.0); Mean Corpuscular HGB CONC 33.3 g/dL (32.0-36.0); Mean Corpuscular Hemoglobin 25.2 pg (27.0-31.0); Mean Corpuscular Volume 75.6 fL (78.0-98.0); Mean Platelet Volume 8.2 fL (7.4-10.4); Platelet Count 263 thou/uL (130-400); RBC Distribution Width 14.4 % (11.5-14.5); Red Blood Cell (RBC) Count 4.18 mill/uL (4.20-5.40); White Blood Cell (WBC) Count 7.2 thou/uL (4.8-10.8)
[2019-03-21 04:53] LABS: Anion Gap 12 mmol/L (10-20); BUN (Urea Nitrogen) 27 mg/dL (7.0-18.7); Calc. Creatinine Clearance 78 mL/min (70-130); Calcium 9.5 mg/dL (7.8-10.44); Carbon Dioxide 27 mmol/L (22-29); Chloride 103 mmol/L (98-107); Estimated GFR-MDRD 36; Glucose 185 mg/dL (70-105); Potassium 3.9 mmol/L (3.5-5.1); Sodium 138 mmol/L (136-145)
[2019-03-21] MEDS ORDERED: Bumetanide 1 MG TAB PO SCH (07:30)
[2019-03-21] MEDS ORDERED: Semaglutide [Ozempic] 0.5 MG SC SCH (09:00)
[2019-03-21] MEDS ORDERED: Famotidine/PF 20 mg/2ml Vial SLOW IVP SCH (09:00)
[2019-03-21] MEDS: Carvedilol 3.125 MG TAB PO SCH ×2 (09:11→16:58)
[2019-03-21] MEDS: Aspirin Chewable 81 MG TAB PO SCH (09:11)
[2019-03-21] MEDS: Atorvastatin Calcium 40 MG TAB PO SCH (09:11)
[2019-03-21] MEDS: Spironolactone 25 MG TAB PO SCH ×2 (09:11→16:58)
[2019-03-21] MEDS: Lisinopril 2.5 MG TAB PO SCH (09:12)
[2019-03-21] MEDS: TICAGRELOR 90 MG TABLET PO SCH ×2 (09:13→21:10)
--- NOTE | 2019-03-21 10:58 | PDOC.HOSPP ---
- Subjective Encounter Date: 03/21/19 Encounter Time: 10:58 Subjective: Continues to have some N/V. Nml BM's. No fever. Reports increased bowel sounds. Has some RLQ pain, but this is longstanding and not associated with the new N/V. No ill contacts. - Objective Vital Signs & Weight: Vital Signs (12 hours) Temp Pulse Resp BP BP Pulse Ox 03/21/19 07:37 98.3 F 92 16 134/62 95 03/21/19 03:16 94 22 H 132/64 98 03/21/19 00:10 98.5 F 93 15 119/67 99 Weight Weight 246 lb 9.6 oz I&O: 03/20/19 03/21/19 03/22/19 06:59 06:59 06:59 Intake Total 305 Output Total 1100 Balance -795 Result Diagrams: 03/21/19 04:17 03/21/19 04:16 Additional Labs: Accuchecks 03/21/19 00:37 POC Glucose 127 H Hospitalist ROS - Medication Medications: Active Medications Generic Name Dose Route Start Last Admin Trade Name Freq PRN Reason Stop Dose Admin Aspirin 81 mg 03/21/19 09:00 03/21/19 09:11 Aspirin Chewable PO 81 mg DAILY ANDREY Administration Atorvastatin Calcium 80 mg 03/21/19 09:00 03/21/19 09:11 Lipitor PO 80 mg DAILY ANDREY Administration Carvedilol 3.125 mg 03/21/19 08:00 03/21/19 09:11 Coreg PO 3.125 mg BID-WM ANDREY Administration Sodium Chloride 1,000 mls @ 65 mls/hr 03/21/19 02:30 03/21/19 03:10 Normal Saline 0.9% IV 1,000 mls .[id number] ANDREY Administration Isosorbide Mononitrate 60 mg 03/21/19 09:00 03/21/19 09:12 Imdur PO 60 mg DAILY ANDREY Administration Lisinopril 2.5 mg 03/21/19 09:00 03/21/19 09:12 Zestril PO 2.5 mg DAILY ANDREY Administration Ondansetron HCl 4 mg 03/21/19 02:23 03/21/19 10:36 Zofran IVP 4 mg Q6H PRN Administration Nausea/Vomiting Ranolazine 1,000 mg 03/21/19 09:00 03/21/19 09:12 Ranexa PO 1,000 mg BID ANDREY Administration Sertraline HCl 150 mg 03/21/19 09:00 03/21/19 09:12 Zoloft PO 150 mg DAILY ANDREY Administration Spironolactone 25 mg 03/21/19 08:00 03/21/19 09:11 Aldactone PO 25 mg BID-WM ANDREY Administration Ticagrelor 90 mg 03/21/19 09:00 03/21/19 09:13 Brilinta PO 90 mg BID ANDREY Administration - Exam General Appearance: NAD, awake alert Heart: RRR, no murmur, no gallops, no rubs, normal peripheral pulses Respiratory: CTAB, no wheezes, no rales, no ronchi, normal chest expansion, no tachypnea, normal percussion Gastrointestinal: soft, non-distended, normal bowel sounds, no palpable masses, no hepatomegaly, no splenomegaly, no guarding, no rigidity, tender to palpation (mild, diffuse. Slight localization to RUQ and RLQ) Hosp A/P (1) Morbid obesity with BMI of 45.0-49.9, adult Code(s): E66.01 - MORBID (SEVERE) OBESITY DUE TO EXCESS CALORIES; Z68.42 - BODY MASS INDEX (BMI) 45.0-49.9, ADULT Status: Acute (2) Anxiety and depression Code(s): F41.9 - ANXIETY DISORDER, UNSPECIFIED; F32.9 - MAJOR DEPRESSIVE DISORDER, SINGLE EPISODE, UNSPECIFIED Status: Chronic (3) CAD (coronary artery disease) Code(s): I25.10 - ATHSCL HEART DISEASE OF [place] CORONARY ARTERY W/O ANG PCTRS Status: Chronic Qualifiers: Coronary Disease-Associated Artery/Lesion type: knik artery Associated angina: with unstable angina (4) DM type 2 (diabetes mellitus, type 2) Status: Chronic Qualifiers: Diabetes mellitus long chain beamer insulin use: with long chain beamer use (5) Dyslipidemia Code(s): E78.5 - HYPERLIPIDEMIA, UNSPECIFIED Status: Chronic (6) HTN (hypertension) Code(s): I10 - ESSENTIAL (PRIMARY) HYPERTENSION Status: Chronic Qualifiers: (7) Chest discomfort Code(s): R07.89 - OTHER CHEST PAIN Status: Resolved - Plan Day five of N/V. Likely too long for viral illness. No fever or leukocytosis. Low likelihood of bacterial infection. Vague TTP. Check RUQ US. Still vomiting too actively to try to do a gastric emptying study now. Did not tolerate eggs for breakfast. Change to IV PPI. GI consult. Continue symptomatic therapy. CP likely related to esophagitis and not cardiac. Cards to see. Blood sugars are good BP stable.
[2019-03-21] MEDS ORDERED: Pantoprazole 40 MG VIAL IVP SCH (11:00)
--- NOTE | 2019-03-21 16:52 | ULT ---
Right upper quadrant ultrasound: 03/21/2019 COMPARISON: None HISTORY: Nausea and vomiting TECHNIQUE: Multiplanar grayscale sonographic imaging of the right upper quadrant provided. FINDINGS: The imaged pancreas is unremarkable. No focal liver lesion or intrahepatic biliary dilatati on. The hepatic parenchyma is mildly heterogeneous and echogenic. This suggests hepatocellular disease, such as steatosis. No gallbladder wall thickening. Common bile duct measures 3 mm, within normal limits. There is nonsha dowing layering material within the gallbladder suggesting sludge. No shadowing gallstones are noted. The construction equipment overhauler reports a negative Armendariz's sign. The right kidney measures 11.5 cm in craniocaudal dimension and demonstrates no stone, hydronephrosis , or mass lesion. IMPRESSION: Small volume gallbladder sludge. No sonographic evidence of cholelithiasis or acute florence cystitis.
[2019-03-21] MEDS ORDERED: Sodium Chloride 0.9% (PF) 10 ML VIAL FS PRN (21:00)
[2019-03-21] MEDS: Pantoprazole 40 MG VIAL IVP SCH (21:11)
[2019-03-21] MEDS ORDERED: Acetaminophen 325 MG TAB PO PRN (21:21)
--- NOTE | 2019-03-21 22:39 | CON ---
DATE OF CONSULTATION: HISTORY OF PRESENT ILLNESS: Yuli Hayes is a pleasant 48-year-old female with known history of coronary artery disease. She was admitted with nausea and vomiting for 4 or 5 days and chest discomfort. She was initially evaluated here in the hospital in May 2018. At that time, she gave a history of having a stent placed in her coronary artery disease in 2014 in [place], [place]. However , on catheterization, no stent was seen. In January 2018, she was admitted with chest pain and underwent Cardiolite scan, which was normal. She had been very noncompliant with her medications at that time, not even taking the aspirin. When she was admitted in May 2018, she had a chest pressure that started around midnight. She was given Zofran, nitroglycerin sublingually, morphine 4 mg, aspirin 324 mg, nitroglycerin paste and another 2 mg of morphine as well as Lovenox 1 mg /kg. She was started on nitroglycerin drip and her pain essentially resolved. EKG had been normal. However, she had a troponin which went up to 10.57. She had a CT of the chest, which did not reveal any evidence of pulmonary emboli. She underwent cardiac catheterization, was noted that no previous stents were seen. She had mild anterior hypokinesis with ejection fraction of 45% to 50%. She was found to have an 80% mid LAD, 80% first diagonal, total occlusion of the second diagonal that filled retrograde. There was a 60% distal LAD stenosis. There was a 30% and 50% lesion in the first obtuse marginal. The right coronary artery was normal. She underwent placement of Rebel 2.5 x 16 mm in the mid LAD, post dilated with a 3.5 mm balloon. The first diagonal had a Rebel 2.25 x 8 mm stent placed. Bare metal stents were placed due to concern about her lack of compliance with medical therapy. She was then readmitted on November 08, 2018 with chest heaviness. There were no EKG changes. Due to her history and the time frame being that for in-stent restenosis, she underwent cardiac catheterization. There was apical akinesis and moderate anterior hypokinesis with ejection fraction of 40% to 45%. There was a 90% mid LAD in-stent restenosis. The first diagonal stent was patent. The second diagonal was totally occluded as it had been in May 2018 and filled retrograde from the left. Circumflex had a 30% and 50% lesion in the first obtuse marginal. On the right coronary artery, a 20% distal stenosis. She underwent placement of drug-eluting stent. Synergy 2.5 x 16 and 2.25 x 12 with lesions being reduced to 0%. 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 She became short of breath, mildly diaphoretic and felt nauseous. She underwent repeat catheterization, had apical akinesis with moderate anterior hypokinesis. The mid LAD stents was patent. There was an 80% first diagonal stenosis proximal to the previous diagonal stent. The second diagonal was totally occluded, which was an old finding. The first obtuse marginal lesion had progressed to 80% and the right coronary artery had a distal 30% stenosis. She underwent placement of Synergy 2.25 x 12 and 2.25 x 12 in the first diagonal. In the first obtuse marginal, 2.25 x 8 and 2.5 x 12 were placed. She then presented again on February 23, 2019 with acute anterior infarction. She was taken to the labor law professor by Dr. Oliveira in my absence and was found to have acute stent thrombosis of the mid LAD. Troponin went up to 36.54. She did have several days later respiratory failure with pulmonary edema. Echo showed severe ischemic cardiomyopathy with ejection fraction of 25% to 30%. She developed a new left bundle-branch block. She required BiPAP, dobutamine and gentle diuresis and eventually improved. She also had acute kidney injury with creatinine increasing from 1.04 up to 4.80 and then was down to 1.49. It is felt she should not be on any NATASHA or ARB drugs with her renal insufficiency. A LifeVest was fitted at the time of discharge. She now is admitted after 4 or 5 days of postprandial vomiting. Sometimes, she will vomit 30 minutes after eating. Sometimes it will be 4-5 hours afterwards. Ultimately with repetitive vomiting, she decided to come to the emergency room. As her family was driving her here, she started to have burning in her chest radiating somewhat to her back. EKG shows resolution of her left bundle-branch block with finding of septal infarct, which is an old finding. PAST MEDICAL HISTORY: Coronary artery disease as noted above, myocardial infarction on 4 occasions, hyperlipidemia (LDL was 65, but it increased to 177 when she was admitted in February 2019 and in my mind, there was question about compliance with her medications (obesity, diabetes, hypertension, ischemic cardiomyopathy, left bundle-branch block, which is resolved, depression and anxiety). OPERATIONS: 1. Coronary stent placement. 2. Removal of tumor on the right side of her neck. MEDICATIONS: 1. Aspirin 81 daily. 2. Brilinta 90 mg b.i.d. 3. Atorvastatin 80 daily. 4. Bumex 1 mg b.i.d. 5. Carvedilol 3.125 b.i.d. 6. Zetia 10 mg daily. 7. Insulin. 8. Isosorbide mononitrate 60 mg q.a.m. 9. Ranexa 1000 mg q.a.m. 10. Lisinopril 2.5 daily. 11. Nitrostat p.r.n. 12. Zoloft 150 mg daily. 13. Aldactone 25 b.i.d. 14. Imitrex 50 mg p.r.n. 15. Tramadol p.r.n. ALLERGIES: NONE. SOCIAL HISTORY: She does not smoke or drink. FAMILY HISTORY: Father and mother had myocardial infarctions. REVIEW OF SYSTEMS: A 12-point review of systems is otherwise unremarkable, 105/ 55, pulse of 91. HEENT: PERRL. NECK: Supple. CHEST: Clear. CARDIAC: S1 and S2 normal without any S3, S4, or murmurs. ABDOMEN: Obese with somewhat high-pitched sounds. No tenderness. EXTREMITIES: Revealed no clubbing, cyanosis, or edema. NEUROLOGIC: Grossly intact. SKIN: Warm and dry. LABORATORY DATA: EKG reveals normal sinus rhythm. The left bundle-branch block has resolved. There is evidence of a septal infarct and inverted T-wave in aVL. Hemoglobin 10.5, hematocrit 31.6, white count 7200, platelets 263,000. Sodium 138, potassium 3.9, chloride 103, carbon dioxide 27, BUN 27, creatinine 1.53. Troponin I 0.068. IMPRESSION: 1. Nausea and vomiting, questionable gastroparesis, questionable small bowel obstruction. 2. Chest pressure, which I feel is probably not cardiac in nature. 3. Long cardiac history, status post bare metal stent to the mid left anterior descending artery and first diagonal in May 2018. In November 2018, drug- eluting stent placed in the left anterior descending artery in-stent restenosis. In January 2019, drug-eluting stent placed in the first diagonal and the first obtuse marginal. She then had acute stent thrombosis of the mid left anterior descending artery in February 2019 with troponin I of 36.54. She underwent thrombectomy as well as percutaneous transluminal coronary angioplasty, but no additional stent was placed at that time. 4. Acute respiratory failure, pulmonary edema after infarction in February 2019. 5. Severe ischemic cardiomyopathy with ejection fraction of 25-30 percent. 6. New left bundle-branch block in February 2019. However, that appears to have resolved at this time. 7. Questionable compliance with medications with LDL increasing from 65 up to 177. 8. Hypertension. 9. Diabetes. 10. Obesity. 11. Hypercholesterolemia. 12. Positive family history. 13. Chronic kidney disease. PLAN: At this time, I do not feel any further cardiac evaluation is warranted and feel GI evaluation would be the best course. She appears to be stable to proceed with EGD, if needed. I will follow the patient with you. Job ID: [id number] KRANTHI
--- NOTE | 2019-03-22 00:40 | CON ---
DATE OF CONSULTATION: 03/21/2019 REASON FOR CONSULTATION: Nausea and vomiting. CONSULTING PROVIDER: Dr. Gabriel Prince. HISTORY OF PRESENT ILLNESS: The patient is a 48-year-old female with past medical history of coronary artery disease/myocardial infarction, hyperlipidemia, obesity, diabetes, hypertension, depression, anxiety, cardiomyopathy with subsequent placement on a LifeVest due to decreased ejection fraction and left bundle branch block, presenting with acute onset of nausea and vomiting. The patient was recently discharged from the hospital for worsening of her congestive heart failure/cardiomyopathy and was in her usual state of health until approximately 4 to 5 days ago when she had the acute onset of nausea vomiting, characterized as 2-3 discrete episodes of vomiting per day with clear mucoid fluid. She would also vomit recently ingested food stuffs and would occur primarily at night and in the wedger and gluer upon waking. However, she did notice that she would experience increased nausea, but no vomiting after meals. The persistent nausea and vomiting then prompted her to seek healthcare assistance at [facility] ER with further evaluation on inpatient hospitalization. Upon review of the patient's medications, she had multiple medications that were switched during the prior hospitalization, although it is unclear exactly which cardiac medications she was changed during the prior hospitalization. At this point, she endorses increased substernal pyrosis, regurgitation, and an acid taste in her mouth in addition to the increased nausea vomiting over the last 4-5 days. However, she denies any fevers, chills, hematemesis, melena, hematochezia, dysphagia, odynophagia, or weight loss. REVIEW OF SYSTEMS: A 10-category review of systems was obtained with all responses negative except for the pertinent positives as listed in HPI. PAST MEDICAL HISTORY: As per HPI. PAST SURGICAL HISTORY: Cardiac stent placement x8, right neck tumor removal. FAMILY HISTORY: Denies any GI malignancies. SOCIAL HISTORY: Denies any tobacco, alcohol, or illicit drug use. OUTPATIENT MEDICATIONS: Reviewed. ALLERGIES: NO KNOWN DRUG ALLERGIES. PHYSICAL EXAMINATION: VITAL SIGNS: Temperature 98.9, pulse 91, blood pressure 128/59, respiratory rate 14, saturating 98% on room air. GENERAL: The patient was lying in bed, in no acute distress. Alert and oriented x4. HEENT: Normocephalic, atraumatic. NECK: Supple. No JVD or scleral icterus noted. CARDIOVASCULAR: Regular rate and rhythm with no discernible murmurs, gallops, or rubs. RESPIRATORY: Clear to auscultation bilaterally with no discernible wheezes or rales. ABDOMEN: Normoactive bowel sounds. Soft, nontender, nondistended. EXTREMITIES: No cyanosis, clubbing, or edema. LABORATORY DATA: CBC with a white blood cell count of 7.2, hemoglobin 10.5, hematocrit 31.6, platelets 263. INR 1.1. BNP 262. Chemistry with a sodium of 138, potassium 3.9, chloride 103 CO2 of 27, BUN 27, creatinine 1.55, glucose 185, AST 11, ALT 14, alkaline phosphatase 92 total bilirubin 0.4. IMAGING DATA: Chest x-ray was obtained on March 20, 2019, which showed normal cardiac silhouette along with no evidence of focal consolidation concerning for pneumonia. A right upper quadrant ultrasound was obtained on March 21, 2019, which showed no focal liver lesion or intrahepatic biliary dilatation. The hepatic parenchyma appeared mildly heterogeneous and echogenic, suggestive of hepatic steatosis. There was no gallbladder wall thickening and the common bile duct measured approximately 3 mm in diameter. EGD performed on August 28, 2008 was normal for the entire upper GI tract with random duodenal biopsies negative for celiac disease. ASSESSMENT AND PLAN: The patient is a 48-year-old female with past medical history of coronary artery disease/myocardial infarction status post stent placement x8, hyperlipidemia, obesity, diabetes, hypertension, depression, anxiety, cardiomyopathy, and a left bundle branch block, presenting with complaints of nausea and vomiting. Nausea vomiting. The patient is presenting with fairly acute onset of nausea vomiting, characterized as having 2-3 discrete episodes of nonbloody emesis per day over the last 4-5 days. This would occur primarily at night and within the wedger and gluer before eating breakfast, but did also have some association with food intake. Current imaging showed both negative chest x-ray as well as a right upper quadrant abdominal ultrasound. However, her current associated symptoms are consistent with acid reflux and she does have a history of extensive gastroesophageal reflux disease symptoms for which she had been taking a proton pump inhibitor until recently when it was discontinued. At this time, the differential could include gastroesophageal reflux disease, medication adverse effects/interaction, gastritis, WORD PROCESSOR TECHNICIAN/intracranial abnormality (less likely) and/or GI neoplasm (much less likely given the negative EGD in August of this year). RECOMMENDATIONS: 1. We would place the patient on pantoprazole 40 mg b.i.d. for probable acid reflux generating her nausea and vomiting. 2. We would continue with antiemetics as needed for aggressive antiemetic support. 3. We would maintain strict acid reflux precaution while here in the hospital. 4. We would review her medication list for any potential medications that could exacerbate nausea and vomiting. 5. Endoscopic evaluation is not indicated at this time given the negative upper endoscopy only 6 months ago. 6. We will continue to follow. Please call with any questions. Again this is a consultation report. Job ID: [id number]
[2019-03-22 05:15] LABS: Cardiac Risk 7.7 (Less than 4.5)
[2019-03-22] MEDS ORDERED: Pantoprazole 40 MG VIAL IVP SCH (09:00)
[2019-03-22] MEDS: Lisinopril 2.5 MG TAB PO SCH (09:15)
[2019-03-22] MEDS: Atorvastatin Calcium 40 MG TAB PO SCH (09:15)
[2019-03-22] MEDS: Carvedilol 3.125 MG TAB PO SCH (09:15)
[2019-03-22] MEDS: Spironolactone 25 MG TAB PO SCH (09:15)
[2019-03-22] MEDS: Aspirin Chewable 81 MG TAB PO SCH (09:15)
[2019-03-22] MEDS: TICAGRELOR 90 MG TABLET PO SCH (09:16)
[2019-03-22] MEDS: Pantoprazole 40 MG VIAL IVP SCH (09:16)
[2019-03-22] MEDS: Sodium Chloride 0.9% 1,000 ML IV SCH (09:18)
[2019-03-22 12:28] VITALS: BP 130/70; TEMP 98.4
--- NOTE | 2019-03-22 14:43 | EKG ---
Test Reason : Blood Pressure : / mmHG Vent. Rate : 097 BPM Atrial Rate : 097 BPM P-R Int : 208 ms QRS Dur : 094 ms QT Int : 376 ms P-R-T Axes : 040 -44 095 degrees QTc Int : 477 ms Normal sinus rhythm Possible Left atrial enlargement Left axis deviation Septal infarct , age undetermined T wave abnormality, consider lateral ischemia Abnormal ECG Confirmed by ALAYNA GARZA DO ([id number]), food expeditor SUSAN ACOSTA ([id number]) on 03/22/2019 2:43:11 PM Referred By: Confirmed By:ALAYNA GARZA DO
== END 2019-03-22 13:00 | disposition home or self-care (01) ==
LOC: ERS 17:48 → 2SW 03-21 00:13
PROVIDERS: ADMIT Internal Medicine; ATTEND Internal Medicine
DX: R07.89 Other chest pain (principal); I25.110 Atherosclerotic heart disease of native coronary artery with unstable angina pectoris; I12.9 Hypertensive chronic kidney disease with stage 1 through stage 4 chronic kidney disease, or unspecified chronic kidney disease; E11.22 Type 2 diabetes mellitus with diabetic chronic kidney disease; N18.9 Chronic kidney disease, unspecified; N17.9 Acute kidney failure, unspecified; E78.5 Hyperlipidemia, unspecified; E66.01 Morbid (severe) obesity due to excess calories; I25.5 Ischemic cardiomyopathy; E78.00 Pure hypercholesterolemia, unspecified; I44.7 Left bundle-branch block, unspecified; F41.9 Anxiety disorder, unspecified; F32.9 Major depressive disorder, single episode, unspecified; J96.00 Acute respiratory failure, unspecified whether with hypoxia or hypercapnia; Z68.41 Body mass index [BMI] 40.0-44.9, adult; Z79.82 Long term (current) use of aspirin; Z79.4 Long term (current) use of insulin; Z79.899 Other long term (current) drug therapy; Z95.5 Presence of coronary angioplasty implant and graft
CPT/HCPCS: 36415; 36416; 71046; 76705; 80048; 80053; 80061; 82550; 82553; 83690; 83735; 83880; 84484; 85025; 85610; 85730; 93005; 96361; 96374; 96375; 96376; C9113; G0378; J2405; Q0162; S0028

== ENCOUNTER 2019-03-26 23:23 | Observation (INO) | payer BC ==
[2019-03-26] MEDS ORDERED: Ondansetron PF 4 MG/2 ML Vial ONE (23:42)
[2019-03-27 00:03] LABS: #Eosinphils 0.3 thou/uL (0.0-0.7); #Lymphocytes 2.2 thou/uL (1.20-3.40); #Monocytes 0.5 thou/uL (0.11-0.59); #Neutrophils 6.2 thou/uL (1.40-6.50); %Basophils 0.3 % (0.0-1.0); %Eosinophils 3.5 % (0.0-10.0); %Lymphocytes 23.5 % (21.0-51.0); %Neutrophils 67.7 % (42.0-75.0); Hemoglobin 11.1 g/dL (12.0-16.0); Mean Corpuscular HGB CONC 32.1 g/dL (32.0-36.0); Mean Corpuscular Hemoglobin 23.9 pg (27.0-31.0); Mean Corpuscular Volume 74.4 fL (78.0-98.0); Platelet Count 311 thou/uL (130-400); RBC Distribution Width 14.2 % (11.5-14.5); Red Blood Cell (RBC) Count 4.66 mill/uL (4.20-5.40); White Blood Cell (WBC) Count 9.1 thou/uL (4.8-10.8)
[2019-03-27 00:22] LABS: ALT (SGPT) 11 U/L (8-55); AST (SGOT) 12 U/L (5-34); Albumin 3.9 g/dL (3.5-5.0); Alkaline Phosphatase 84 U/L (40-110); Anion Gap 16 mmol/L (10-20); BUN (Urea Nitrogen) 19 mg/dL (7.0-18.7); Bilirubin, Total 0.4 mg/dL (0.2-1.2); Calc. Creatinine Clearance 0 mL/min (70-130); Calcium 9.8 mg/dL (7.8-10.44); Carbon Dioxide 22 mmol/L (22-29); Chloride 102 mmol/L (98-107); Estimated GFR-MDRD 40; Globulin 3.9 g/dL (2.4-3.5); Glucose 205 mg/dL (70-105); Lipase 63 U/L (8-78); Potassium 3.6 mmol/L (3.5-5.1); Protein, Total 7.8 g/dL (6.0-8.3); Sodium 136 mmol/L (136-145)
--- NOTE | 2019-03-27 00:32 | RAD ---
EXAM: CHEST ONE VIEW HISTORY: Nausea vomiting and diarrhea. COMPARISON: 03/20/2019 FINDINGS: Cardiac silhouette is magnified by projection. Pulmonary vasculature is normal in its. Linear atelect asis seen in the region of the lingula. Lungs are otherwise clear. Coronary artery calcic lesions overlie the left aspect of the cardiac silhouette. There has been no interval change from the prior e xam. IMPRESSION: No acute cardiopulmonary process.
[2019-03-27 00:43] LABS: CKMB 1.1 ng/mL (0-6.6)
[2019-03-27] MEDS ORDERED: Acetaminophen 650 MG Suppository PR PRN (02:04)
[2019-03-27] MEDS ORDERED: Acetaminophen 325 MG TAB PO PRN (02:04)
[2019-03-27] MEDS ORDERED: Dextrose 50% Abboject 50 ML SYRINGE SLOW IVP PRN (02:06)
[2019-03-27] MEDS ORDERED: Dextrose 5% in Water 1,000 ML IV PRN (02:06)
[2019-03-27] MEDS ORDERED: HumaLOG 300 UNITS/3 ML VIAL SC PRN (02:06)
[2019-03-27 02:52] LABS: #Basophils 0.1 thou/uL (0.0-0.2); #Eosinphils 0.2 thou/uL (0.0-0.7); #Lymphocytes 2.1 thou/uL (1.20-3.40); #Monocytes 0.4 thou/uL (0.11-0.59); #Neutrophils 5.9 thou/uL (1.40-6.50); %Basophils 0.8 % (0.0-1.0); %Eosinophils 2.8 % (0.0-10.0); %Lymphocytes 24.2 % (21.0-51.0); %Monocytes 4.8 % (0.0-10.0); %Neutrophils 67.4 % (42.0-75.0); Hemoglobin 10.4 g/dL (12.0-16.0); Mean Corpuscular HGB CONC 32.8 g/dL (32.0-36.0); Mean Corpuscular Hemoglobin 24.5 pg (27.0-31.0); Mean Corpuscular Volume 74.7 fL (78.0-98.0); Mean Platelet Volume 7.9 fL (7.4-10.4); Platelet Count 287 thou/uL (130-400); Red Blood Cell (RBC) Count 4.24 mill/uL (4.20-5.40); White Blood Cell (WBC) Count 8.8 thou/uL (4.8-10.8)
[2019-03-27 03:16] LABS: Troponin I 0.031 ng/mL (< 0.028)
--- NOTE | 2019-03-27 03:18 | HP ---
TIME OF ASSESSMENT: 0100 hours. PRIMARY CARE PHYSICIAN: Dr. Austin. CHIEF COMPLAINT: Nausea, vomiting, and diarrhea since Sunday. HISTORY OF PRESENT ILLNESS: Ms. Hayes is a pleasant 48-year-old woman, who was recently discharged from the hospital on 03/22/2019. The patient had been admitted due to similar symptoms of nausea and vomiting. She was seen by Dr. Berger of GI and had been placed on pantoprazole 40 mg twice daily. I was suspected nausea and vomiting were being triggered by acid reflux. Per Dr. Berger, endoscopic evaluation was not indicated given the recent normal endoscopy done within the last 6 months. The patient does have a history of congestive heart failure/cardiomyopathy with a LifeVest in place. She had been complaining of occasional left-sided chest pain and therefore, was also seen by Dr. Matute, Cardiology during the recent admission and cleared from a cardiac perspective. The patient states that since going home, she has developed persistent diarrhea. This has been ongoing since Sunday and yesterday, she had approximately 6 very loose stools. The patient states they are watery without any bright red blood or black tarry stools. She has had persistent occasional nausea and vomiting. Reports no improvement with Protonix that was prescribed. States she has also developed recurring sharp chest pains in the left side of her chest, which is nonradiating. She states they come and go quickly and feels similar to the pain she was experiencing during the recent admission. The patient has a LifeVest in place. REVIEW OF SYSTEMS: She denies any fevers, chills, or sweats. Denies having any headaches or dizziness. States someone at home was diagnosed with flu yesterday, was attributing her symptoms to having the flu. Denies any abdominal pain or cramping, but does report persistent watery stools. Denies having any urinary symptoms. All other review of systems negative. PAST MEDICAL HISTORY: 1. Coronary artery disease. 2. [place] x4. 3. Hyperlipidemia. 4. Obesity. 5. Diabetes mellitus. 6. Hypertension. 7. Ischemic cardiomyopathy. 8. Left bundle branch block. 9. Depression/anxiety. 10. CKD. PAST SURGICAL HISTORY: 1. Coronary artery stent. 2. Removal of tumor on the right side of her neck. SOCIAL HISTORY: She denies any tobacco use or alcohol consumption. FAMILY HISTORY: Her mother and father both had MIs. ALLERGIES: NO KNOWN DRUG ALLERGIES. CURRENT MEDICATIONS: 1. Aspirin. 2. Atorvastatin. 3. Isosorbide. 4. Semaglutide. 5. Sertraline. 6. Sumatriptan. 7. Tramadol. 8. Bumetanide. 9. Carvedilol. 10. Ezetimibe. 11. Insulin glargine. 12. Lisinopril. 13. Nitroglycerin. 14. Pantoprazole. 15. Ranexa. 16. Spironolactone. 17. Ticagrelor. PHYSICAL EXAMINATION: GENERAL: The patient is obese, well developed, and in no acute distress, resting comfortably on stretcher. VITAL SIGNS: Temperature 98.4, pulse 87, respirations 18, O2 saturation 98% on room air, and blood pressure 138/74. HEENT: Normocephalic and atraumatic. Pupils are equal, round, and reactive to light. Sclerae without icterus. Oropharynx is clear. NECK: Supple. LUNGS: Clear to auscultation bilaterally without any wheezes, rales, or rhonchi. CARDIAC: Regular rate and rhythm. ABDOMEN: Soft. Mild generalized discomfort, but no significant tenderness with palpation. No guarding or rigidity. No renal angle tenderness. EXTREMITIES: No lower leg swelling or edema. NEUROLOGIC: Alert and oriented x3. SKIN: Without rash or jaundice. LABORATORY DATA: White blood count 9.1, hemoglobin 11.1, hematocrit 34.7, platelets 311. Sodium 136, potassium 3.6, BUN 19, creatinine 1.39, GFR 40, glucose 205, calcium 9.8, total bilirubin 0.4, AST 12, ALT 11, alkaline phosphatase 84, CK-MB 1.1. Troponin 0.029. Albumin 3.9. Lipase 63. IMAGING DATA: Chest x-ray done 03/26/2019, no acute cardiopulmonary process. IMPRESSION AND PLAN: Ms. Hayes is a pleasant 48-year-old woman, who returns following a recent discharge from the hospital on 03/22/2019, with similar symptoms including nausea, vomiting, and in addition to that is now experiencing watery diarrhea since Sunday. She also reports having intermittent left-sided chest pain. The patient has been referred for management of the following. 1. Chest pain. In the emergency department, she underwent an EKG, which showed normal sinus rhythm with a heart rate of 87. She has a first-degree AV block with no evidence of ST-elevation myocardial infarction. Of note, the patient does have severe cardiomyopathy/congestive heart failure and has a LifeVest. Laboratory studies have been done including a troponin, which was indeterminate at 0.029. We will continue to trend troponins. Chest x-ray has been done and shows no acute cardiopulmonary process. During recent admission with similar chest pains, Cardiology had been consulted and cleared the patient from having pain that was cardiac in nature. We will therefore defer consultation with Cardiology at this present time. 2. Diarrhea. The patient reports having watery stools since Sunday. She denies any blood per rectum or black tarry stools. We will check stool studies including clostridium difficile. We will check electrolytes including magnesium. We will check BMP before providing any IV hydration. 3. Nausea and vomiting. This has been persistent and without any improvement despite being placed on Protonix by Dr. Dr. Berger following recent consultation during last admission. There is no indication for repeat endoscopy. Day Team to decide if further Gastroenterology input is needed. 4. Hypertension. Monitor blood pressure and reconcile home medications once verified. 5. Diabetes mellitus. Initiate insulin sliding scale. Resume home medications once verified. Continue with Accu-Cheks. 6. Gastrointestinal prophylaxis. We will resume home Protonix 40 mg p.o. twice daily. Awaiting verification of home medications. 7. Deep venous thrombosis prophylaxis. Mechanical SCDs. 8. Code status full. Surrogate decision maker is her sister, Teetee Lang. 9. The patient's case was discussed with Dr. Mtz, who agrees with the plan of care as described above. Job ID: [id number]
[2019-03-27 03:38] LABS: Anion Gap 15 mmol/L (10-20); BUN (Urea Nitrogen) 18 mg/dL (7.0-18.7); Calc. Creatinine Clearance 0 mL/min (70-130); Calcium 9.1 mg/dL (7.8-10.44); Carbon Dioxide 23 mmol/L (22-29); Chloride 103 mmol/L (98-107); Estimated GFR-MDRD 41; Glucose 165 mg/dL (70-105); Potassium 3.5 mmol/L (3.5-5.1); Sodium 137 mmol/L (136-145)
[2019-03-27 06:05] VITALS: BMI 42.0
[2019-03-27 07:07] LABS: Troponin I 0.057 ng/mL (< 0.028)
[2019-03-27] MEDS ORDERED: Carvedilol 3.125 MG TAB PO SCH (08:00)
[2019-03-27] MEDS: Carvedilol 6.25 MG TAB PO SCH ×2 (08:30→17:57)
[2019-03-27] MEDS: Atorvastatin Calcium 40 MG TAB PO SCH (08:30)
[2019-03-27] MEDS: Famotidine/PF 20 mg/2ml Vial SLOW IVP SCH ×2 (08:30→20:13)
[2019-03-27] MEDS: Spironolactone 25 MG TAB PO SCH ×2 (08:31→17:57)
[2019-03-27] MEDS: TICAGRELOR 90 MG TABLET PO SCH ×2 (08:31→20:13)
[2019-03-27] MEDS: Aspirin Chewable 81 MG TAB PO SCH (08:31)
[2019-03-27] MEDS ORDERED: Ondansetron PF 4 MG/2 ML Vial IVP PRN (08:46)
[2019-03-27] MEDS ORDERED: Aspirin Chewable 81 MG TAB PO SCH (09:00)
--- NOTE | 2019-03-27 09:40 | PDOC.HOSPP ---
- Subjective Encounter Date: 03/27/19 Encounter Time: 09:38 Subjective: 48 y/o female with obesity, CAD, ICM, CKD, DM and GERD recently discharged from hospital following treatment for N/V/D, now readmitted with intractable nausea and vomiting and diarrhea associated with poor oral intake. Also reported epigastric tenderness. No fever or SOB or leg edema. Last emesis and stool were last night. - Objective Vital Signs & Weight: Vital Signs (12 hours) Temp Pulse Resp BP Pulse Ox 03/27/19 07:45 96.9 F L 94 17 124/77 96 03/27/19 05:50 97.8 F 91 16 138/75 97 Weight Weight 252 lb 6.4 oz Result Diagrams: 03/27/19 02:45 03/27/19 02:45 Hospitalist ROS - Medication Medications: Active Medications Generic Name Dose Route Start Last Admin Trade Name Freq PRN Reason Stop Dose Admin Aspirin 81 mg 03/27/19 09:00 03/27/19 08:31 Aspirin Chewable PO 81 mg DAILY ANDREY Administration Atorvastatin Calcium 80 mg 03/27/19 09:00 03/27/19 08:30 Lipitor PO 80 mg DAILY ANDREY Administration Carvedilol 6.25 mg 03/27/19 08:00 03/27/19 08:30 Coreg PO 6.25 mg BID-WM ANDREY Administration Famotidine 20 mg 03/27/19 09:00 03/27/19 08:30 Pepcid SLOW IVP 20 mg Q12HR ANDREY Administration Isosorbide Mononitrate 60 mg 03/27/19 09:00 03/27/19 08:30 Imdur PO 60 mg DAILY ANDREY Administration Pantoprazole Sodium 40 mg 03/27/19 09:00 03/27/19 08:31 Protonix PO 40 mg BID ANDREY Administration Ranolazine 1,000 mg 03/27/19 09:00 03/27/19 08:30 Ranexa PO 1,000 mg BID ANDREY Administration Spironolactone 25 mg 03/27/19 08:00 03/27/19 08:31 Aldactone PO 25 mg BID-WM ANDREY Administration Ticagrelor 90 mg 03/27/19 09:00 03/27/19 08:31 Brilinta PO 90 mg BID ANDREY Administration - Exam General Appearance: awake alert General - other findings: obese Eye: PERRL ENT: normocephalic atraumatic Neck: symmetric, no JVD Heart: RRR Respiratory: no wheezes, no rales, no ronchi, normal chest expansion Gastrointestinal: soft, non-distended, normal bowel sounds Gastrointestinal - other findings: mild epigastric tenderness Extremities: no cyanosis, no edema Neurological: cranial nerve grossly intact, no focal deficits Psychiatric: normal affect, A&O x 3 Hosp A/P (1) Frequent loose stools Code(s): R19.7 - DIARRHEA, UNSPECIFIED Status: Acute (2) GERD (gastroesophageal reflux disease) Code(s): K21.9 - GASTRO-ESOPHAGEAL REFLUX DISEASE WITHOUT ESOPHAGITIS Status: Acute (3) Nausea & vomiting Code(s): R11.2 - NAUSEA WITH VOMITING, UNSPECIFIED Status: Acute (4) Hypokalemia Code(s): E87.6 - HYPOKALEMIA Status: Acute (5) Elevated troponin Code(s): R79.89 - OTHER SPECIFIED ABNORMAL FINDINGS OF BLOOD CHEMISTRY Status : Acute (6) CKD (chronic kidney disease) stage 3, GFR 30-59 ml/min Code(s): N18.3 - CHRONIC KIDNEY DISEASE, STAGE 3 (MODERATE) Status: Acute (7) Morbid obesity with BMI of 45.0-49.9, adult Code(s): E66.01 - MORBID (SEVERE) OBESITY DUE TO EXCESS CALORIES; Z68.42 - BODY MASS INDEX (BMI) 45.0-49.9, ADULT Status: Acute (8) CAD (coronary artery disease) Code(s): I25.10 - ATHSCL HEART DISEASE OF [place] CORONARY ARTERY W/O ANG PCTRS Status: Chronic Qualifiers: Coronary Disease-Associated Artery/Lesion type: tribe artery Associated angina: with unstable angina (9) DM type 2 (diabetes mellitus, type 2) Status: Chronic Qualifiers: 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 insulin use: with computer terminal operator use (10) Dyslipidemia Code(s): E78.5 - HYPERLIPIDEMIA, UNSPECIFIED Status: Chronic (11) HTN (hypertension) Code(s): I10 - ESSENTIAL (PRIMARY) HYPERTENSION Status: Chronic Qualifiers: (12) JAEL on CPAP Code(s): G47.33 - OBSTRUCTIVE SLEEP APNEA (ADULT) (PEDIATRIC); Z99.89 - DEPENDENCE ON OTHER ENABLING MACHINES AND DEVICES Status: Chronic (13) Chronic systolic (congestive) heart failure Code(s): I50.22 - CHRONIC SYSTOLIC (CONGESTIVE) HEART FAILURE Status: Acute - Plan Start antiemetic as needed Replete serum potassium and magnesium to 4 and 2 respectively Continue PPI Restart home medications get stool culture and C dif. Sliding scale insulin.
[2019-03-27] MEDS: HumaLOG 300 UNITS/3 ML VIAL SC PRN (17:56)
[2019-03-28] MEDS: Atorvastatin Calcium 40 MG TAB PO SCH (09:14)
[2019-03-28] MEDS: Carvedilol 6.25 MG TAB PO SCH (09:14)
[2019-03-28] MEDS: Spironolactone 25 MG TAB PO SCH (09:15)
[2019-03-28] MEDS: Aspirin Chewable 81 MG TAB PO SCH (09:15)
[2019-03-28] MEDS: Famotidine/PF 20 mg/2ml Vial SLOW IVP SCH (09:15)
[2019-03-28] MEDS: TICAGRELOR 90 MG TABLET PO SCH (09:15)
[2019-03-28] MEDS: HumaLOG 300 UNITS/3 ML VIAL SC PRN (12:32)
[2019-03-28 13:23] VITALS: BP 135/77; TEMP 96.7
--- NOTE | 2019-03-28 14:33 | DIS ---
DATE OF ADMISSION: 03/27/2019 DATE OF DISCHARGE: 03/28/2019 PRIMARY CARE PHYSICIAN: Sherif Austin MD DISCHARGE DIAGNOSES: 1. Possible acute gastroenteritis. 2. Nausea and vomiting. 3. Frequent loose stool. 4. Gastroesophageal reflux disease. 5. Hypokalemia. 6. Chronic kidney disease stage 3. 7. Elevated troponin. 8. Coronary artery disease, status post coronary artery bypass grafting. 9. Type 2 diabetes mellitus. 10. Dyslipidemia. 11. Hypertension. 12. Obstructive sleep apnea, on CPAP. 13. Morbid obesity with BMI of 45 to 49. 14. Chronic systolic heart failure. HOSPITAL COURSE: A 48-year-old female with obesity, coronary artery disease, ischemic cardiomyopathy, CKD stage 3, as well as diabetes mellitus and gastroesophageal reflux disease, who was recently discharged from this hospital following treatment for nausea, vomiting, and diarrhea, now readmitted with intractable nausea and vomiting as well as diarrhea associated with poor oral intake. The patient also reported epigastric tenderness. The patient was seen by GI during prior hospitalization and was felt to have gastroesophageal reflux disease and was started on Protonix b.i.d. The patient was treated with antiemetics with improvement in symptoms. Of note, the patient had no diarrhea since admission. Nausea and vomiting subsided with antiemetics, hence she was restarted on diet. She tolerated diet well and was subsequently discharged. Stool analysis could not be performed as patient had no further loose stool. In fact, she had no BM during hospitalization. The patient has an appointment with GI on April 04, 2019. Given improvement of symptoms, the patient was subsequently discharged to follow up with GI in the office. PHYSICAL EXAMINATION: VITAL SIGNS: Temperature 97.2, pulse 93, respiratory rate 18, SpO2 of 99% on room air, blood pressure is 129/64. GENERAL: Obese female, in no distress. Afebrile. Anicteric. Acyanotic. HEENT: Normocephalic, atraumatic. Oral mucosa is moist. NECK: Supple. Nontender with good range of motion. No JVD appreciated. CARDIOVASCULAR: Regular rhythm and rate with normal heart sounds 1 and 2. RESPIRATORY: Good air entry bilaterally with no obvious crackle or rhonchi or use of accessory muscles. GI: Obese, soft, nontender, nondistended with normal bowel sounds. EXTREMITIES: Grossly normal looking atraumatic with trace feet edema. No erythema appreciated. THEATRICAL RIGGER: Conscious, alert, oriented x3 with appropriate mental status. Cranial nerves 2 through 12 are grossly intact. DISCHARGE CONDITION: Improved. DISCHARGE DISPOSITION: Home. FOLLOWUP: 1. With PCP in 7 days. 2. The patient is to keep appointment with GI on April 04, 2019. 3. The patient also was advised to follow up with certified composites technician for re-evaluation of treatment including Ozempic which can cause nausea and vomiting as well as diarrhea. DISCHARGE MEDICATIONS: 1. Ozempic 0.5 mg subcutaneously every 7 days. 2. Aspirin 81 mg p.o. daily. 3. Lipitor 80 mg p.o. daily. 4. Carvedilol 6.25 mg p.o. b.i.d. 5. Isosorbide mononitrate 60 mg p.o. daily. 6. Zoloft 150 mg p.o. daily. 7. Imitrex 50 mg p.r.n. for headache. 8. Nitroglycerin 0.4 mg p.o. sublingual q.5 minutes for chest pain. 9. Zofran ODT 4 mg q.6 p.r.n. for nausea and vomiting. 10. Bumex 1 mg p.o. b.i.d. 11. Zetia 10 mg p.o. daily. 12. Insulin 35 units subcutaneously b.i.d. 13. Lisinopril 2.5 mg p.o. daily. 14. Protonix 40 mg p.o. b.i.d. 15. Ranexa 1000 mg p.o. b.i.d. 16. Spironolactone 25 mg p.o. b.i.d. 17. Brilinta 90 mg p.o. b.i.d. Job ID: [id number]
== END 2019-03-28 14:15 | disposition home or self-care (01) ==
LOC: ERS 23:23 → ERHOLD 03-27 01:22 → 2NO 03-27 05:59
PROVIDERS: ADMIT Internal Medicine; ATTEND Internal Medicine
DX: R11.2 Nausea with vomiting, unspecified (principal); R19.7 Diarrhea, unspecified; E87.6 Hypokalemia; I25.5 Ischemic cardiomyopathy; I25.110 Atherosclerotic heart disease of native coronary artery with unstable angina pectoris; K21.9 Gastro-esophageal reflux disease without esophagitis; I13.0 Hypertensive heart and chronic kidney disease with heart failure and stage 1 through stage 4 chronic kidney disease, or unspecified chronic kidney disease; I50.22 Chronic systolic (congestive) heart failure; E11.22 Type 2 diabetes mellitus with diabetic chronic kidney disease; N18.3 Chronic kidney disease, stage 3 (moderate); E78.5 Hyperlipidemia, unspecified; I44.0 Atrioventricular block, first degree; F41.8 Other specified anxiety disorders; G47.33 Obstructive sleep apnea (adult) (pediatric); E66.01 Morbid (severe) obesity due to excess calories; R79.89 Other specified abnormal findings of blood chemistry; I25.2 Old myocardial infarction; Z68.41 Body mass index [BMI] 40.0-44.9, adult; Z79.02 Long term (current) use of antithrombotics/antiplatelets; Z79.4 Long term (current) use of insulin; Z79.82 Long term (current) use of aspirin; Z79.899 Other long term (current) drug therapy; Z95.5 Presence of coronary angioplasty implant and graft; Z99.89 Dependence on other enabling machines and devices
CPT/HCPCS: 36415; 36416; 71045; 80048; 80053; 82553; 83690; 83735; 83880; 84484; 85025; 93005; 96361; 96374; 96375; 96376; G0378; J2405; S0028

== ENCOUNTER 2019-04-25 18:18 | Observation (INO) | payer BC ==
[~2019-04-25 18:18] MED LIST: Iopamidol-370 76% 500 ML 1 ML ONE
--- NOTE | 2019-04-25 19:03 | RAD ---
XR Chest 1 View Portable History: Chest pain. Code Green Comparison: Radiograph March 26, 2019 Findings: Pulmonary arteries are mildly distended. There is scarring within the lingula. No pneumothorax. No effusion. No acute osseous abnormality. Impression: No acute intrathoracic abnormality.
[2019-04-25] MEDS ORDERED: Nitroglycerin 2% Ointment 1 INCH/1 GM Packet ONE (19:05)
[2019-04-25] MEDS ORDERED: Morphine 4 MG/ML VIAL ONE ×2 (19:05→20:56)
[2019-04-25 19:26] LABS: #Eosinphils 0.3 thou/uL (0.0-0.7); #Lymphocytes 1.9 thou/uL (1.20-3.40); #Monocytes 0.4 thou/uL (0.11-0.59); #Neutrophils 7.6 thou/uL (1.40-6.50); %Basophils 0.5 % (0.0-1.0); %Eosinophils 2.5 % (0.0-10.0); %Lymphocytes 18.3 % (21.0-51.0); %Monocytes 4.1 % (0.0-10.0); %Neutrophils 74.7 % (42.0-75.0); Hemoglobin 11.6 g/dL (12.0-16.0); Mean Corpuscular HGB CONC 33.6 g/dL (32.0-36.0); Mean Corpuscular Hemoglobin 24.8 pg (27.0-31.0); Mean Corpuscular Volume 73.9 fL (78.0-98.0); Mean Platelet Volume 8.4 fL (7.4-10.4); Platelet Count 293 thou/uL (130-400); RBC Distribution Width 15.1 % (11.5-14.5); Red Blood Cell (RBC) Count 4.68 mill/uL (4.20-5.40); White Blood Cell (WBC) Count 10.1 thou/uL (4.8-10.8)
[2019-04-25 19:36] LABS: INR-International Normal Ratio 1.1; PTT 44.3 SEC (22.9-36.1); Prothrombin Time 13.8 SEC (12.0-14.7)
[2019-04-25 19:49] LABS: ALT (SGPT) 8 U/L (8-55); AST (SGOT) 7 U/L (5-34); Albumin 3.6 g/dL (3.5-5.0); Alkaline Phosphatase 101 U/L (40-110); Anion Gap 14 mmol/L (10-20); BUN (Urea Nitrogen) 18 mg/dL (7.0-18.7); Bilirubin, Total 0.7 mg/dL (0.2-1.2); Calc. Creatinine Clearance 0 mL/min (70-130); Calcium 9.1 mg/dL (7.8-10.44); Carbon Dioxide 23 mmol/L (22-29); Chloride 98 mmol/L (98-107); Estimated GFR-MDRD 38; Globulin 3.6 g/dL (2.4-3.5); Glucose 391 mg/dL (70-105); Lipase 50 U/L (8-78); Magnesium 1.4 mg/dL (1.6-2.6); Potassium 3.6 mmol/L (3.5-5.1); Protein, Total 7.2 g/dL (6.0-8.3); Sodium 131 mmol/L (136-145)
[2019-04-25 19:51] LABS: CKMB 0.6 ng/mL (0-6.6)
[2019-04-25] MEDS ORDERED: Magnesium 2 GM/50 ML BAG (IN WATER) ONE (20:17)
--- NOTE | 2019-04-25 20:52 | CT ---
CT ANGIOGRAM OF THE CHEST AND ABDOMEN - AORTIC DISSECTION PROTOCOL: 04/25/19 COMPARISON: None. HISTORY: Central chest pain radiating to the back. TECHNIQUE: Axial CT imaging is obtained at 2.5 mm intervals from the thoracic inlet through the upper sacrum wit h IV contrast using a CT angiogram protocol. Olea and sagittal 3D reformatted imaging obtained. FINDINGS: There is no axillary, or hilar lymphadenopathy. There is a mildly enlarged nonspecific right paratrac heal lymph node measuring 1-1.1 cm. Coronary arterial calcification is present. There is a small gustavo cardial effusion. The heart is prominent. The thoracic and abdominal aorta demonstrate no evidence for aneurysm or dissection. Nonspecific pulmonary nodule within the left upper lobe noted on image 62 measuring 6 mm. No endobron chial lesion is evident. There is a possible 1.3 cm hypodense lesion within the right lobe of the thyroid gland for which foll ow-up thyroid ultrasound is advised. Liver, gallbladder, spleen, pancreas, adrenal glands, and kidneys are unremarkable. Small hiatal mi ia noted. There are a few scattered subcentimeter nonspecific retroperitoneal lymph nodes. No enlarged lymph no adelaida are seen within the abdomen. The pelvis is not imaged. Small fat containing umbilical hernia pres ent. The inferior mesenteric artery, bilateral renal arteries, superior mesenteric artery, and celiac axis are patent with no hemodynamically significant stenosis at their respective ostia. Review of osseous structures demonstrates no worrisome lytic or blastic lesion. IMPRESSION: 1. Heart size is prominent with coronary arterial calcifications and small pericardial effusion noted. 2. No evidence for aneurysm or dissection of the thoracic or abdominal aorta. 3. Possible thyroid nodules for which nonemergent follow-up thyroid ultrasound is advised. 4. Subcentimeter pulmonary nodule in the lingula, stable when compared to 01/01/18 CT angiogram c hest. Recommend follow-up CT examination in 6-12 months. Code T POS: JOSÉ ANTONIO
[2019-04-25] MEDS ORDERED: Enoxaparin Sodium 30 MG/0.3 ML SYRINGE ONE (20:57)
[2019-04-25] MEDS ORDERED: Enoxaparin Sodium 100 MG/ML SYRINGE ONE (20:57)
[2019-04-26] MEDS ORDERED: Morphine 2 MG/ML SYRINGE SLOW IVP PRN (01:16)
[2019-04-26] MEDS ORDERED: Dextrose 5% in Water 1,000 ML IV PRN (01:16)
[2019-04-26] MEDS ORDERED: Dextrose 50% Abboject 50 ML SYRINGE SLOW IVP PRN (01:16)
[2019-04-26] MEDS ORDERED: Nitroglycerin 0.4 MG TAB (25 Tab Bottle) SL PRN (01:16)
[2019-04-26] MEDS ORDERED: Zolpidem Tartrate 5 MG TAB PO PRN (01:16)
[2019-04-26] MEDS ORDERED: Ondansetron PF 4 MG/2 ML Vial IVP PRN (01:16)
[2019-04-26] MEDS ORDERED: HumaLOG 300 UNITS/3 ML VIAL SC PRN (01:16)
[2019-04-26 02:23] LABS: Troponin I 0.032 ng/mL (< 0.028)
--- NOTE | 2019-04-26 03:04 | HP ---
PRESENT COMPLAINT: Recurrent left-sided chest pain. HISTORY OF PRESENT ILLNESS: Ms. Yuli Hayes is a 48-year-old female with history of hypertension, hyperlipidemia, coronary artery disease status post multiple MIs and PCIs with subsequent ischemic cardiomyopathy and left bundle branch block, currently with a LifeVest since the last 3 months, multiple PCI with stent placements, with last catheterization reportedly having difficulty with stenting some of the vessels. Follows with Cardiology extensively, who presented with recurrent left-sided chest pain while driving today. She describes the pain at about 4-7/10. Pain is similar to her previous [place] episode pain, more of a heaviness with intermittent sharpness. She states pain was radiating to the back. She denies any associated shortness of breath. She states she is compliant with her medication including Ranexa and isosorbide. She states she was recently started on Entresto and lisinopril was held. She denies any nausea or vomiting. PAST MEDICAL HISTORY: On arrival in the emergency room, pain did not resolve with use of nitroglycerin paste, but improved after morphine given. Her pain has reduced to 2/10 now. PAST MEDICAL HISTORY: Significant for coronary artery disease, multiple MIs, obesity, hyperlipidemia, hypertension, diabetes mellitus, ischemic cardiomyopathy, left bundle branch block, chronic kidney disease. PAST SURGICAL HISTORY: Include removal of tumor on the right side of the neck. SOCIAL HISTORY: She resides in a community with her spouse. No history of tobacco, alcohol, illicit drug use. FAMILY HISTORY: Extensive history of coronary artery disease. ALLERGIES: NO KNOWN DRUG ALLERGIES. HOME MEDICATIONS: See Aug. Includes: 1. Aspirin. 2. Lipitor. 3. Isosorbide. 4. Semaglutide. 5. Entresto, short dose. 6. Bumex. 7. Coreg. 8. Zetia. 9. Lantus insulin. 10. Nitroglycerin. 11. Ranexa. 12. Spironolactone. 13. Brilinta(ticagrelor). 14. Protonix. REVIEW OF SYSTEMS: All system review x14 were negative except as mentioned above. She admits to intermittent weight gain, but with recent increase in Bumex dose her weight is decreasing. PHYSICAL EXAMINATION: VITAL SIGNS: Blood pressure of 120/69, pulse 81, O2 saturation of 98% on room air, respiratory rate of 22. GENERAL: Obese middle-aged female, smiling, not in any distress. Head is atraumatic, normocephalic. Pupils are equal and reactive to light. Moist oral mucosa. NECK: No JVD. No carotid bruit. RESPIRATORY: Good air entry bilaterally. No crepitations. LifeVest in situ. CARDIOVASCULAR: S1, S2. Rate and rhythm regular. No reproducible chest wall tenderness. GI: Abdomen distended, but soft. Bowel sounds positive. No organomegaly. No guarding. EXTREMITIES: No pedal edema. No calf tenderness. LABORATORY DATA: EKG showed normal sinus rhythm, no ST-segment changes noted. WBC 10, hemoglobin 11.6, platelet 293. INR 1.1. Sodium 131, potassium 3.6, BUN 18, creatinine 1.47, baseline of 1.2 to 1.3. CK-MB 0.6, troponin 0.039 and BNP of 256, lipase 50, albumin 3.6. IMAGIN. Chest x-ray shows no acute intrathoracic pathology. 2. CT chest and abdomen shows heart size is prominent with coronary artery calcification and small pericardial effusion. No evidence for aneurysm or dissection of the aorta. Possible thyroid nodules noted. Subcentimeter pulmonary nodule in the lingula. IMPRESSION: Presumed unstable angina. History of ischemic cardiomyopathy with arrhythmias. Hypertension. Diabetes mellitus. Chronic kidney disease, stage 3. Mild systolic congestive heart failure exacerbation. PLAN: We will admit patient to telemetry unit. We will manage the patient for the following. 1. Recurrent chest pain/unstable angina-mild elevation in troponin, could be chronic. 2. We would do continue serial set of cardiac enzymes. We will start the patient on Lovenox/aspirin/Brilinta continuation. 3. We will also continue nitroglycerin paste, if worsening chest pain, we will start nitroglycerin drip. 4. We will consult Cardiology in a.m. The patient may need repeat angiogram. We would defer options to Cardiology. 5. Continue pain control with morphine as needed. 6. Coronary artery disease with extensive ischemic cardiomyopathy-continue diuretics. Continue home regimen. 7. Mild congestive heart failure exacerbation-increase. Follow on diuretic dosage. We will do IV Lasix 40 q.12h for now. 8. Chronic kidney disease, monitor renal function. 9. Hyponatremia, may be due to Entresto, spironolactone use. We will continue to monitor. 10. Deep venous thrombosis prophylaxis, subcutaneous Lovenox. 11. Advance directive, patient is a full code. Total time spent evaluation of patient, discussion greater than 60 minutes. Job ID: [id number]
[2019-04-26] MEDS: Nitroglycerin 2% Ointment 1 INCH/1 GM Packet TOP SCH ×3 (05:10→23:07)
[2019-04-26 06:03] LABS: #Eosinphils 0.3 thou/uL (0.0-0.7); #Lymphocytes 1.8 thou/uL (1.20-3.40); #Monocytes 0.5 thou/uL (0.11-0.59); #Neutrophils 5.7 thou/uL (1.40-6.50); %Basophils 0.2 % (0.0-1.0); %Eosinophils 3.7 % (0.0-10.0); %Lymphocytes 21.2 % (21.0-51.0); %Neutrophils 68.9 % (42.0-75.0); Hemoglobin 10.5 g/dL (12.0-16.0); Mean Corpuscular HGB CONC 32.9 g/dL (32.0-36.0); Mean Corpuscular Hemoglobin 24.6 pg (27.0-31.0); Mean Corpuscular Volume 74.9 fL (78.0-98.0); Mean Platelet Volume 8.8 fL (7.4-10.4); Platelet Count 226 thou/uL (130-400); RBC Distribution Width 15.1 % (11.5-14.5); Red Blood Cell (RBC) Count 4.26 mill/uL (4.20-5.40); White Blood Cell (WBC) Count 8.3 thou/uL (4.8-10.8)
[2019-04-26 06:23] LABS: ALT (SGPT) 8 U/L (8-55); AST (SGOT) 11 U/L (5-34); Albumin 3.2 g/dL (3.5-5.0); Alkaline Phosphatase 87 U/L (40-110); Anion Gap 13 mmol/L (10-20); BUN (Urea Nitrogen) 19 mg/dL (7.0-18.7); Bilirubin, Total 0.6 mg/dL (0.2-1.2); Calc. Creatinine Clearance 91 mL/min (70-130); Calcium 8.9 mg/dL (7.8-10.44); Carbon Dioxide 24 mmol/L (22-29); Cardiac Risk 3.6 (Less than 4.5); Chloride 100 mmol/L (98-107); Cholesterol 136 mg/dl (< 200 Desired); Estimated GFR-MDRD 41; Globulin 3.4 g/dL (2.4-3.5); Glucose 272 mg/dL (70-105); HDL Cholesterol 38 mg/dL (>60 Neg Risk); LDL Cholesterol, Calculated 56 mg/dL; Potassium 3.7 mmol/L (3.5-5.1); Protein, Total 6.6 g/dL (6.0-8.3); Sodium 133 mmol/L (136-145); Triglycerides 212 mg/dL (Less than 150)
[2019-04-26 06:33] LABS: Troponin I 0.074 ng/mL (< 0.028)
[2019-04-26] MEDS: Bumetanide 1 MG TAB PO SCH ×2 (08:44→18:08)
[2019-04-26] MEDS: Ezetimibe 10 MG TAB PO SCH (08:45)
[2019-04-26] MEDS: Carvedilol 3.125 MG TAB PO SCH ×2 (08:45→18:08)
[2019-04-26] MEDS: Aspirin 325 mg Enteric Coated Tablet PO SCH (08:45)
[2019-04-26] MEDS: Atorvastatin Calcium 40 MG TAB PO SCH (08:45)
[2019-04-26] MEDS: Insulin Glargine 35 UNITS in Pre-Filled Syringe 1 EACH SC SCH ×2 (08:47→20:34)
[2019-04-26] MEDS: Enoxaparin Sodium 120 MG/0.8 ML SYRINGE SC SCH ×2 (08:47→20:33)
[2019-04-26] MEDS: TICAGRELOR 90 MG TABLET PO SCH ×2 (08:47→20:31)
[2019-04-26] MEDS: HYDROcodone/Acetaminophen 5/325 mg Tablet PO PRN ×2 (08:54→15:20)
[2019-04-26 12:24] LABS: Troponin I 0.059 ng/mL (< 0.028)
--- NOTE | 2019-04-26 13:54 | CON ---
DATE OF CONSULTATION: HISTORY OF PRESENT ILLNESS: This is actually an extended progress note. She was admitted on 03/21 and discharged on 03/22. Her last admission, this is a very unfortunate 48-year-old female who has been followed by Dr. Matute for little over a year now. She originally was seen by him in 2018, at which time she had already undergone angioplasty and stent placement to, I believe, the left anterior descending artery at that time. Then she had presented again on a couple of occasions. Recently on her last admission, she was found to have a thrombus in the LAD and underwent angioplasty with this and the thrombus could not be aspirated, but was ballooned and then went into the diagonal branch, but the diagonal remained patent. Despite having the thrombus, she has also had stent placements to the distal left anterior descending artery, diagonal branches, obtuse marginal branch. These were fully outlined by Dr. Matute's notes. Since her last admission, she was placed on Brilinta. She was also placed on Ranexa and also Entresto. Unfortunately, she says she has been out of her medicines for about 2 weeks and then yesterday started developing somewhat atypical chest pain underneath the left breast area, but there was also in the lower anterior chest area, midsternal, somewhat similar to what she had in the past. She then presented to the emergency room. She was given nitroglycerin. Her cardiac enzymes are indeterminate or slightly elevated, but on her last admission, the enzymes were significantly higher and indicative of a myocardial infarction recently, but at this time her troponin I on admission was 0.039, has peaked at 0.074. Her EKG did not show any acute changes. She does have evidence of an old anterior myocardial infarction. Her ejection fraction has also been significantly decreased. She has a LifeVest. Eventually may need to undergo implantation of an AICD, but this time, as I am seeing the patient this morning, she is relatively stable and denies any chest pain, but it appears this may be a type 2 myocardial infarction. PAST MEDICAL HISTORY: Significant for the severe coronary artery disease with small vessels and multiple angioplasties and stent placements, cardiomyopathy. She has ejection fraction by last echocardiogram and catheterization of 25% to 30%. She has a LifeVest in place. She has a history of diabetes, history of morbid obesity, history of dyslipidemia, hypertension. She has history of gastroesophageal reflux disease, history of chronic kidney disease stage 3, occasional nausea and vomiting, most likely due to her diabetes and perhaps gastroparesis. She does have a history of some migraine headaches. She has also had some history of some neck surgery. MEDICATIONS: Her list of medications prior to admission included; 1. Entresto one b.i.d. 2. Aldactone 25 mg b.i.d. 3. Lisinopril 40 mg, this has been stopped. She is not taking lisinopril. She was taking the Entresto. 4. Isosorbide mononitrate 60 mg once a day. 5. Furosemide 20 mg once a day for edema. 6. Sertraline 100 mg daily. 7. Humalog 100 units/ml solution as directed for her diabetes. 8. Levemir FlexTouch Pen 100 units as directed. 9. Lipitor 80 mg a day. 10. Protonix 40 mg a day. 11. Amlodipine 10 mg a day. 12. Ozempic, this is also an insulin and Pen injector as directed. 13. Aspirin 81 mg a day. 14. Lasix 40 mg a day. 15. Ranolazine ER 1000 mg tablets one twice a day. 16. Brilinta 90 mg twice a day. 17. Bumetanide 1 mg every 24 hours. 18. Coreg 12.5 mg b.i.d. 19. Zetia 10 mg a day. I believe she is not taking the Zetia and then she is taking the Zetia, but she was taken off her Plavix, which she had previously been on. She is also not taking metoprolol, which she had been previously taking. She has now been switched over to the Coreg and also the Brilinta. FAMILY HISTORY: Her mother had a pacemaker insertion and also had a history of diabetes and TIAs and myocardial infarction. Her father had also peripheral vascular disease and had a history of diabetes and is now . SOCIAL HISTORY: She continues to work. There is no alcohol or tobacco abuse. ALLERGIES: NONE. REVIEW OF SYSTEMS: A 12-point review of systems is unremarkable except for what was noted in the history of present illness. PHYSICAL EXAMINATION: GENERAL: Reveals a well-developed, well-nourished female, who is in no acute distress at this time. She is alert. She is oriented. VITAL SIGNS: Her vital signs are stable. Her blood pressure is 115/61, heart rates in the 70s which shows a sinus rhythm. Blood pressure is 118/57, respiratory rate 16. HEENT: Shows the head to be normocephalic and atraumatic. Carotid pulses are present. I did not hear any bruits. CHEST: Clear to auscultation without rales, rhonchi, or wheezing. CARDIOVASCULAR: Reveals a regular rate and rhythm, at this time with normal S1, S2. No S3 or S4. There were no significant murmurs, heaves, thrills, bruits, or rubs. She does have a LifeVest in place. ABDOMEN: Shows significant obesity, but no palpable masses. No tenderness. EXTREMITIES: Showed no clubbing, cyanosis, or edema. Pedal pulses are present. NEUROLOGIC: There are no gross focal motor deficits. DIAGNOSTIC STUDIES: Her EKG shows a normal sinus rhythm with decreased R-wave progression in the anterior leads compatible with old anterior myocardial infarction. There were no other acute ST-segment changes noted. LABORATORY DATA: As noted above for the troponin I, which is still indeterminate. The peak troponin I thus far is 0.074. This is significantly trending down from her last admission when her troponin I was significantly higher. Actually, this was the admission before this back in the February when she underwent her angioplasties and attempted thrombectomy, her troponin I at that time was 36.5, but since March 20, she is continued to have a troponin I of 0.049 as low as 0.29 and then as high as 0.74 and then the last one here in the hospital is back down to 0.059. Her other laboratory data shows sodium of 133, potassium was 3.7, BUN was 19 with a creatinine 1.39. Blood sugar was 272. Her LDL level is well controlled at 56. Her BNP was 256. IMPRESSION: 1. Middle-aged female with severe 3-vessel coronary artery disease, who has undergone multiple angioplasty and stent placements, who recently had back in February, underwent angioplasty to the left anterior descending artery due to in-stent thrombosis. At that time, she was placed on medications which she has been noncompliant with, but said she was unable to get them from the pharmacy but then had to wait for the medicines for couple weeks. I have informed her the next time if that happen, she needs to inform the office right away. We will try to get her samples until she can get her medications. If she was out of her Brilinta for two weeks, it is possible that she has had some other small thrombus, but at this time there are no acute EKG changes and enzymes are still indeterminate. We would continue her medical management at this time with the Brilinta as well as her other medications. She has continued to take the aspirin. She has also been placed on Lovenox and we can continue this for 24 to 48 hours and then she remained stable and can stop the medication, and most likely discharge the patient to home. Should she continue to have chest pain or increase in the cardiac enzymes or EKG changes and she may need to undergo repeat cardiac catheterization as she may again have thrombus in the left anterior descending artery. For her other medical problems which include diabetes, this will be dealt with by the primary care service. 2. Hypertension. This is under good control at this time, we will continue the same medications at this time. 3. Noncompliance. I have suggested that she try to contact the drug company to try to get some drug assistance if her insurance is not able to pay for these medications because she has several high dollar medications even with the co-pay making it somewhat difficult to purchase these medications. 4. Dyslipidemia. Her cholesterol is well controlled at this time. We will continue those medications. 5. Obesity. She may be advisable for her to undergo a dietary consultation to see if she can lose some weight. 6. Cardiomyopathy, which is ischemic in nature. She will continue wearing the LifeVest. I believe the echocardiogram will be scheduled three months after the diagnosis of the severe decrease in left ventricular systolic function and she may become a candidate for defibrillator. Job ID: [id number]
--- NOTE | 2019-04-26 20:06 | PDOC.EVN ---
Event Note - Event Note Event Note: Seen and examined. Continue anticoagulation and antiplatelet. No new problem Monitor closely for hemodynamic instabilty Continue home medications. Cardiology following
[2019-04-27 05:35] LABS: #Eosinphils 0.2 thou/uL (0.0-0.7); #Lymphocytes 1.7 thou/uL (1.20-3.40); #Monocytes 0.4 thou/uL (0.11-0.59); #Neutrophils 6.3 thou/uL (1.40-6.50); %Basophils 0.4 % (0.0-1.0); %Eosinophils 2.6 % (0.0-10.0); %Monocytes 4.8 % (0.0-10.0); %Neutrophils 72.2 % (42.0-75.0); Hemoglobin 10.5 g/dL (12.0-16.0); Mean Corpuscular HGB CONC 32.5 g/dL (32.0-36.0); Mean Corpuscular Hemoglobin 24.5 pg (27.0-31.0); Mean Corpuscular Volume 75.5 fL (78.0-98.0); Mean Platelet Volume 8.4 fL (7.4-10.4); Platelet Count 261 thou/uL (130-400); RBC Distribution Width 15.2 % (11.5-14.5); Red Blood Cell (RBC) Count 4.27 mill/uL (4.20-5.40); White Blood Cell (WBC) Count 8.7 thou/uL (4.8-10.8)
[2019-04-27 05:57] LABS: Albumin 3.3 g/dL (3.5-5.0); Anion Gap 12 mmol/L (10-20); BUN (Urea Nitrogen) 21 mg/dL (7.0-18.7); BUN/Creatinine Ratio 16.28; Calc. Creatinine Clearance 96 mL/min (70-130); Calcium 9.1 mg/dL (7.8-10.44); Carbon Dioxide 26 mmol/L (22-29); Chloride 103 mmol/L (98-107); Estimated GFR-MDRD 44; Glucose 108 mg/dL (70-105); Potassium 3.6 mmol/L (3.5-5.1); Sodium 137 mmol/L (136-145)
[2019-04-27] MEDS: Nitroglycerin 2% Ointment 1 INCH/1 GM Packet TOP SCH (06:04)
[2019-04-27] MEDS ORDERED: Iron, Sodium Ferric Gluconate 250 MG in Sodium Chloride 0.9% 100 ML IVPB SCH (09:00)
[2019-04-27] MEDS: Bumetanide 1 MG TAB PO SCH (09:17)
[2019-04-27] MEDS: Ezetimibe 10 MG TAB PO SCH (09:19)
[2019-04-27] MEDS: Enoxaparin Sodium 120 MG/0.8 ML SYRINGE SC SCH (09:19)
[2019-04-27] MEDS: Aspirin 325 mg Enteric Coated Tablet PO SCH (09:19)
[2019-04-27] MEDS: Carvedilol 3.125 MG TAB PO SCH (09:19)
[2019-04-27] MEDS: Insulin Glargine 35 UNITS in Pre-Filled Syringe 1 EACH SC SCH (09:19)
[2019-04-27] MEDS: Atorvastatin Calcium 40 MG TAB PO SCH (09:19)
[2019-04-27] MEDS: TICAGRELOR 90 MG TABLET PO SCH (09:20)
--- NOTE | 2019-04-27 10:45 | PDOC.CPN ---
- Subjective Date: 04/27/19 Time: 10:49 Interval history: The pt seen and examined. No overnight events. No cardiac complaints. - Objective Allergies/Adverse Reactions: Allergies Allergy/AdvReac Type Severity Reaction Status Date / Time No Known Drug Allergies Allergy Verified 04/26/19 00:12 Visit Medications: Current Medications Hydrocodone Bitart/Acetaminophen ([place] 5/325) 1 tab PO Q4H PRN PRN Reason: Moderate Pain (4-6) Last Admin: 04/26/19 15:20 Dose: 1 tab Aspirin (Ecotrin) 325 mg PO DAILY [facility] Last Admin: 04/27/19 09:19 Dose: 325 mg Atorvastatin Calcium (Lipitor) 80 mg PO DAILY [facility] Last Admin: 04/27/19 09:19 Dose: 80 mg Bumetanide (Bumex) 1 mg PO BID-AC [facility] Last Admin: 04/27/19 09:17 Dose: 1 mg Carvedilol (Coreg) 6.25 mg PO BID-WM [facility] Last Admin: 04/27/19 09:19 Dose: 6.25 mg Dextrose/Water (Dextrose 50%) 25 gm SLOW IVP PRN PRN PRN Reason: Hypoglycemia Ezetimibe (Zetia) 10 mg PO DAILY [facility] Last Admin: 04/27/19 09:19 Dose: 10 mg Enoxaparin Sodium (Lovenox) 120 mg SC 0900,2100 [facility] Last Admin: 04/27/19 09:19 Dose: 120 mg Glucagon (Glucagon) 1 mg IM PRN PRN PRN Reason: Hypoglycemia Dextrose/Water (D5w) 1,000 mls @ 0 mls/hr IV .Q0M PRN PRN Reason: Hypoglycemia Insulin Glargine 35 units/ (Miscellaneous Medication) 0.35 mls @ 0 mls/hr SC BID [facility] Last Admin: 04/27/19 09:19 Dose: 0.35 mls Ferric Sodium Gluconate Complex 250 mg/ Sodium Chloride 120 mls @ 60 mls/hr IVPB Q12HR [facility] Stop: 04/27/19 21:01 Last Admin: 04/27/19 09:20 Dose: 120 mls Insulin Human Lispro (Humalog) 0 units SC .AGGRESSIVE SLIDING PRN PRN Reason: Aggressive Correctional Scale Last Admin: 04/26/19 06:26 Dose: 9 unit Isosorbide Mononitrate (Imdur) 60 mg PO DAILY [facility] Last Admin: 04/27/19 09:20 Dose: 60 mg Morphine Sulfate (Morphine) 2 mg SLOW IVP Q5MIN PRN PRN Reason: Chest Pain Nitroglycerin (Nitro-Bid 2% Ointment) 0.5 inch TOP Q8HR [facility] Last Admin: 04/27/19 06:04 Dose: Not Given Nitroglycerin (Nitrostat) 0.4 mg SL Q5MIN PRN PRN Reason: Chest Pain Ondansetron HCl (Zofran) 4 mg IVP Q6H PRN PRN Reason: Nausea/Vomiting Pantoprazole Sodium (Protonix) 40 mg PO BID [facility] Last Admin: 04/27/19 09:20 Dose: 40 mg Ranolazine (Ranexa) 1,000 mg PO BID [facility] Last Admin: 04/27/19 09:20 Dose: 1,000 mg Sertraline HCl (Zoloft) 150 mg PO DAILY [facility] Last Admin: 04/27/19 09:20 Dose: 150 mg Ticagrelor (Brilinta) 90 mg PO BID [facility] Last Admin: 04/27/19 09:20 Dose: 90 mg Zolpidem Tartrate (Ambien) 5 mg PO HSPRN PRN PRN Reason: Insomnia Vital Signs & Weight: Vital Signs Temp Pulse Pulse Pulse Resp BP BP 04/27/19 09:44 88 95 123/64 114/64 04/27/19 07:14 98.0 F 82 20 04/27/19 04:45 98.8 F 85 15 04/26/19 23:18 98.6 F 81 16 BP Pulse Ox Pulse Ox Pulse Ox 04/27/19 09:44 98 98 04/27/19 07:14 138/63 98 04/27/19 04:45 116/61 97 04/26/19 23:18 127/67 98 Weight 255 lb - Physical Exam General: alert & oriented x3 Neck: supple neck Cardiac: regular rate and rhythm, S1/S2 Lungs: clear to auscultation Neuro: cranial nerve 2-12 intact Abdomen: unremarkable Extremities: no cyanosis Skin: clear Musculoskeletal: normal range of motion - Labs Result Diagrams: 04/27/19 05:11 04/27/19 05:11 Troponin/CKMB CK-MB (CK-2) 0.6 ng/mL (0-6.6) 04/25/19 19:18 Troponin I 0.059 ng/mL (< 0.028) H 04/26/19 11:00 - Telemetry Sinus rhythms and dysrhythmias: sinus rhythm - Assessment/Plan Assessment/Plan: 1. Atypical CP - asymptomatic; on Ranexa and Imdur 2. CAD with hx of re-stent in LAD in 02/2019 - The pt stated she has brilinta and other all her meds at home now. 3. Chronic combined HF with LifeVest - On Entresto, bbocker, diuretic; The pt will have Echo at Dr Matute's office on 04/30/2019 4. HTN - stable 5. HLD - 6. DM type 2 - 7. Anxiety and depression 8. Anemia - receiving Iron infusion now MAR reviewed * From Cardiac standpoint, the pt is stable to d/c home. * The pt has Echo schedule at Dr Matute's office on 04/30/2019. * Per the pt, she has all her medication at home now.
[2019-04-27 12:37] VITALS: BP 131/63; TEMP 98.8
--- NOTE | 2019-04-27 15:40 | DIS ---
DATE OF ADMISSION: 04/26/2019 DATE OF DISCHARGE: 04/27/2019 DISCHARGE DIAGNOSES: 1. Atypical chest pain. 2. Suspected unstable angina. 3. Coronary artery disease status post recent stent restenosis, status post restenting. 4. Noncompliance. 5. Chronic combined systolic and diastolic heart failure. 6. Cardiomyopathy with LifeVest. 7. Hypertension. 8. Hyperlipidemia. 9. Chronic kidney disease, stage 3. 10. Diabetes mellitus. 11. Anxiety and depression. 12. Microcytic anemia/iron deficiency anemia. 13. Morbid obesity. CONSULT: Cardiology. HOSPITAL COURSE: A 48-year-old obese female with known history of coronary artery disease status post stent, complicated by in-stent stenosis requiring repeat stenting as well as ischemic cardiomyopathy with ejection fraction in 30s with LifeVest, who has been having recurrent chest pain hence on Ranexa. The patient was admitted due to chest pain that started while she was driving. Of note, the patient has been off Brilinta for about 2 weeks hence, unstable angina diagnosis was considered and the patient was started on antithrombotic therapy with Lovenox, aspirin, and Brilinta. However, serial troponin were negative and chest pain improved significantly, to the point later resolved completely. Cardiology consult was obtained and continuation of antithrombotic further therapy was recommended for at least 24 hours. Given resolution of symptoms, cardiology recommended discharge, but instructed the patient clearly not to miss her medication and to contact them should she ran out of medication or about to run out of medication. The patient also has an appointment to follow up with artificial teeth inspector for repeat echocardiogram to re-evaluate cardiomyopathy for possible AICD placement. She remained stable and was subsequently discharged home. PHYSICAL EXAMINATION: VITAL SIGNS: Temperature 98.8, pulse 84, respiratory rate 20, SpO2 of 96% on room air, and blood pressure is 131/63. GENERAL: Morbidly obese female, in no distress. Afebrile. Anicteric. Acyanotic. HEENT: Normocephalic and atraumatic. Oral mucosa is moist. CARDIOVASCULAR: Regular rhythm and rate with normal heart sounds one and two. RESPIRATORY: Good air entry bilaterally with no crackle or rhonchi or use of accessory muscles. GI: Morbidly obese, soft, nontender, and nondistended with normal bowel sounds. EXTREMITIES: Grossly normal looking atraumatic with no edema or erythema. Distal pulses are palpable. 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 The patient is ambulant. DISCHARGE CONDITION: Improved. DISCHARGE DISPOSITION: Home. FOLLOWUP: With primary care provider in 1 to 2 weeks. DISCHARGE INSTRUCTIONS: The patient was instructed to keep appointment with Dr. Matute's office for repeat echocardiogram on April 30, 2019. DISCHARGE MEDICATIONS: Home medications were restarted with no change. See discharge med rec. Job ID: [id number]
== END 2019-04-27 15:12 | disposition home or self-care (01) ==
LOC: ERS 18:18 → 2SW 04-26 01:11 → INTOOBSV 04-26 01:11
PROVIDERS: ADMIT Internal Medicine; ATTEND Internal Medicine
DX: R07.89 Other chest pain (principal); E78.5 Hyperlipidemia, unspecified; I25.10 Atherosclerotic heart disease of native coronary artery without angina pectoris; I25.2 Old myocardial infarction; I25.5 Ischemic cardiomyopathy; I13.0 Hypertensive heart and chronic kidney disease with heart failure and stage 1 through stage 4 chronic kidney disease, or unspecified chronic kidney disease; N18.3 Chronic kidney disease, stage 3 (moderate); I50.43 Acute on chronic combined systolic (congestive) and diastolic (congestive) heart failure; D64.9 Anemia, unspecified; I44.7 Left bundle-branch block, unspecified; E87.1 Hypo-osmolality and hyponatremia; F41.9 Anxiety disorder, unspecified; F32.9 Major depressive disorder, single episode, unspecified; D50.9 Iron deficiency anemia, unspecified; E66.01 Morbid (severe) obesity due to excess calories; Z68.41 Body mass index [BMI] 40.0-44.9, adult; Z91.19 Patient's noncompliance with other medical treatment and regimen; Z79.02 Long term (current) use of antithrombotics/antiplatelets; Z79.4 Long term (current) use of insulin; Z79.82 Long term (current) use of aspirin; Z79.899 Other long term (current) drug therapy; Z95.5 Presence of coronary angioplasty implant and graft
CPT/HCPCS: 36415; 36416; 71045; 71275; 72191; 74175; 80053; 80061; 80069; 82553; 83690; 83735; 83880; 84484; 85025; 85610; 85730; 93005; 93798; 94760; 96365; 96366; 96367; 96372; 96375; 96376; G0378; J1650; J1815; J2270; J2916; J3475; J3490; Q9967

== ENCOUNTER 2019-05-12 14:18 | Observation (INO) | payer BC ==
[2019-05-12] MEDS ORDERED: Naloxone HCl 0.4 mg/ml Vial ONE (15:24)
[2019-05-12 15:28] LABS: #Eosinphils 0.3 thou/uL (0.0-0.7); #Lymphocytes 1.9 thou/uL (1.20-3.40); #Monocytes 0.5 thou/uL (0.11-0.59); #Neutrophils 11.2 thou/uL (1.40-6.50); %Basophils 0.2 % (0.0-1.0); %Eosinophils 2.1 % (0.0-10.0); %Lymphocytes 13.4 % (21.0-51.0); %Monocytes 3.5 % (0.0-10.0); %Neutrophils 80.9 % (42.0-75.0); Hemoglobin 11.5 g/dL (12.0-16.0); Mean Corpuscular HGB CONC 32.9 g/dL (32.0-36.0); Mean Corpuscular Hemoglobin 24.6 pg (27.0-31.0); Mean Corpuscular Volume 74.8 fL (78.0-98.0); Mean Platelet Volume 8.1 fL (7.4-10.4); Platelet Count 376 thou/uL (130-400); RBC Distribution Width 14.5 % (11.5-14.5); Red Blood Cell (RBC) Count 4.68 mill/uL (4.20-5.40); White Blood Cell (WBC) Count 13.9 thou/uL (4.8-10.8)
[2019-05-12 15:44] LABS: Anion Gap 14 mmol/L (10-20); BUN (Urea Nitrogen) 17 mg/dL (7.0-18.7); Calc. Creatinine Clearance 0 mL/min (70-130); Carbon Dioxide 27 mmol/L (22-29); Chloride 98 mmol/L (98-107); Estimated GFR-MDRD 46; Potassium 3.8 mmol/L (3.5-5.1); Sodium 135 mmol/L (136-145)
[2019-05-12 15:45] LABS: ALT (SGPT) 10 U/L (8-55); AST (SGOT) 12 U/L (5-34); Albumin 3.7 g/dL (3.5-5.0); Alkaline Phosphatase 102 U/L (40-110); Bilirubin, Total 0.3 mg/dL (0.2-1.2); CK (CPK) 31 U/L (29-168); Calcium 9.4 mg/dL (7.8-10.44); Globulin 4.2 g/dL (2.4-3.5); Glucose 235 mg/dL (70-105); Protein, Total 7.9 g/dL (6.0-8.3)
[2019-05-12 15:58] LABS: MDiff Complete? YES; Microcytosis SLIGHT = 6-15 cells (100X) (0-5/hpf); Platelet Morphology Comment Appears Adequate; Polychromasia SLIGHT = 2-3 cells (100X) (0-2/hpf); Schistocytes SLIGHT = 2-5 cells (100X) (0-1/hpf); Tear Drops SLIGHT = 2-5 cells (100X) (0-1/hpf)
[2019-05-12 16:07] LABS: CKMB 0.7 ng/mL (0-6.6)
--- NOTE | 2019-05-12 16:16 | CT ---
CT Brain WO Con: 05/12/2019 2:49 PM CLINICAL HISTORY: Altered mental status, dizziness and somnolence. IMAGING TECHNIQUE: Multiple CT images were obtained of the brain without IV contrast. COMPARISON: January 05, 2019 CT the brain FINDINGS: Brain: No acute infarct or hemorrhage is evident. No midline shift. Ventricles: Normal. No hydrocephalus.. Skull: Intact.. Visualized Paranasal sinuses: Clear.. Mastoid air cells:Clear. Extracranial soft tissues:Normal. IMPRESSION: No acute intracranial abnormality.
[2019-05-12] MEDS ORDERED: Aspirin 325 MG TAB ONE (16:32)
[2019-05-12] MEDS ORDERED: Aspirin Chewable 81 MG TAB ONE (16:34)
[2019-05-12 18:40] LABS: Troponin I 0.048 ng/mL (< 0.028)
[2019-05-12] MEDS ORDERED: Acetaminophen 325 MG TAB ONE (19:53)
[2019-05-12] MEDS: Acetaminophen 325 MG TAB PO PRN (19:56)
[2019-05-12] MEDS ORDERED: Atorvastatin Calcium 40 MG TAB PO SCH (21:00)
[2019-05-12] MEDS ORDERED: Insulin Glargine 35 UNITS in Pre-Filled Syringe 1 EACH SC SCH (21:00)
[2019-05-12 21:02] VITALS: BMI 42.8
[2019-05-12 21:58] LABS: Troponin I 0.066 ng/mL (< 0.028)
--- NOTE | 2019-05-13 00:37 | HP ---
CHIEF COMPLAINT: Encephalopathy. HISTORY OF PRESENT ILLNESS: This patient is a 48-year-old female, who was here about a month ago. She was out today following up with her GI physician and started becoming somnolent and "passing out". The patient reports that she woke feeling fine today. However, when at that appointment, she started feeling like she was "drunk." She had some balance issues and was very drowsy. She had no shortness of breath or chest pain. She did develop a posterior headache and had some associated nausea, thought perhaps she just needed to eat, so she went to get some food and she did not get significantly better. Reported that she was "passing out" during her lunch. 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 At that time, apparently her blood glucose was checked and she was told it was fine. She was subsequently brought to the emergency department. She does report that she is feeling slightly better at this time. REVIEW OF SYSTEMS: She denies any fevers, chills, or ill contacts. Has had normal bowel and bladder habits, normal p.o. intake. All other systems reviewed. All pertinent positives and negatives noted in the history of present illness. PAST MEDICAL HISTORY: Coronary artery disease, multiple prior MIs. She has an ischemic cardiomyopathy with an EF around 20% to 25% and is wearing a LifeVest. She has obesity, hyperlipidemia, hypertension, diabetes mellitus, left bundle branch block, and chronic kidney disease, stage 3. PAST SURGICAL HISTORY: Had a tumor removed from the right side of her neck, which was benign. FAMILY HISTORY: Significant for extensive coronary artery disease. SOCIAL HISTORY: She is a nonsmoker, nondrinker, and nondrug user. She is full code. is surrogate decision maker. ALLERGIES: NONE. CURRENT MEDICATIONS: 1. Sertraline 50 mg daily. 2. Imitrex p.r.n. 3. Aspirin 81 mg p.o. daily. 4. Atorvastatin 80 mg daily. 5. Isosorbide mononitrate 60 mg daily. 6. Zetia 10 mg daily. 7. Nitroglycerin sublingual p.r.n. 8. Ranexa 1000 mg b.i.d. 9. Insulin Lantus 30 units subcu b.i.d. 10. Aldactone 25 mg b.i.d. 11. Brilinta 90 mg b.i.d. 12. Ozempic 0.5 mg q.week. 13. Pantoprazole 40 mg b.i.d. 14. Carvedilol 6.25 mg b.i.d. 15. Zofran 4 mg p.o. q.6 hours p.r.n. 16. Entresto one p.o. b.i.d. 17. Bumex 1 mg b.i.d. PHYSICAL EXAMINATION: VITAL SIGNS: Blood pressure is 144/86, pulse 78, respirations 30, O2 saturation 98% on room air. GENERAL APPEARANCE: Age-appropriate female. She is in no distress. Awake, alert, oriented, pleasant, cooperative. HEENT: PERRL. No OP lesions. NECK: Supple and symmetric without lymphadenopathy, JVD, or carotid bruits. HEART: Regular rate and rhythm without murmurs, gallops, or rubs. LUNGS: Clear to auscultation bilaterally with good chest wall expansion and air exchange. ABDOMEN: Soft, nontender, and nondistended. Positive bowel sounds. No masses. No organomegaly. EXTREMITIES: No cyanosis, clubbing, or edema. PSYCHIATRIC: Normal affect and behavior. NEUROLOGIC: The patient has full range of motion of all extremities. Cranial nerves are intact. Cognitively intact. She has no focal deficits. LABORATORY DATA: White count 13.9, hemoglobin 11.5, platelets 376. Sodium 135, potassium 3.8, chloride 98, CO2 is 24, BUN 17, creatinine is 1.25, GFR is 46, glucose 235, calcium 9.4, AST 12, ALT 10, alkaline phosphatase 102. Ammonia is 26. Troponin 0.067. BNP is 187. CT of the brain, no acute intracranial abnormalities. EKG shows first-degree AV block, some left atrial enlargement, but otherwise sinus rhythm at 81 beats per minute. IMPRESSION AND PLAN: 1. Encephalopathy, unclear etiology. Checking a flu screen. We will check a drug screen as well. The patient apparently did receive some Narcan here in the emergency department, which did not initially cause any change in her overall somnolence, although at this point, she appears to be largely back to her baseline. She does continue to report a headache that she says is 8/10. She has history of some compliance issues, but otherwise appears to be stable from a lab perspective. We will keep in observation for now. 2. Headache. The patient has a history of migraines apparently with some antimigraine medications. It is possible she had an atypical migraine, but again we will get an MRI just to ensure with this constellation of symptoms that she did not have a posterior circulation cerebrovascular accident, especially in light of her significant coronary artery disease. 3. Cardiomyopathy. Continue with her usual home medications including Entresto and Coreg. 4. Coronary artery disease. Continue Ranexa, aspirin, Brilinta. 5. Hyperlipidemia. Continue atorvastatin and Zetia. 6. Diabetes mellitus. Accu-NetSpend sliding scale. Job ID: [id number]
[2019-05-13] MEDS ORDERED: HumaLOG 300 UNITS/3 ML VIAL SC PRN ×2 (03:26)
[2019-05-13] MEDS ORDERED: Dextrose 50% Abboject 50 ML SYRINGE IVP PRN (03:26)
[2019-05-13] MEDS ORDERED: Dextrose 5% in Water 1,000 ML IV PRN (03:26)
[2019-05-13] MEDS: Acetaminophen 325 MG TAB PO PRN ×2 (04:16→09:08)
[2019-05-13 05:00] LABS: Amphetamine Not Detected (NotDetected); Barbiturates Screen Not Detected (NotDetected); Benzodiazepine Screen Not Detected (NotDetected); Cocaine Metabolite Screen Not Detected (NotDetected); Medtox Control Line Valid? VALID (VALID); Medtox Reader # READER 4; Methadone Not Detected (NotDetected); Methamphetamine Not Detected (NotDetected); Opiate Screen Not Detected (NotDetected); Oxycodone Screen Not Detected (NotDetected); Phencyclidine (PCP) Not Detected (NotDetected); THC/Cannabinoid Screen Not Detected (NotDetected); Tricyclic Screen Not Detected (NotDetected)
[2019-05-13 05:39] LABS: Anion Gap 10 mmol/L (10-20); BUN (Urea Nitrogen) 19 mg/dL (7.0-18.7); Calc. Creatinine Clearance 104 mL/min (70-130); Carbon Dioxide 29 mmol/L (22-29); Chloride 100 mmol/L (98-107); Estimated GFR-MDRD 47; Glucose 260 mg/dL (70-105); Potassium 4.2 mmol/L (3.5-5.1); Sodium 135 mmol/L (136-145)
[2019-05-13 06:21] LABS: Band 7 % (5-11); Eosinophils 4 % (0-10); Hemoglobin 10.9 g/dL (12.0-16.0); Lymphocytes 16 % (21-51); MDiff Complete? YES; Mean Corpuscular Hemoglobin 24.2 pg (27.0-31.0); Mean Corpuscular Volume 75.6 fL (78.0-98.0); Monocytes 3 % (0-10); Neutrophil 70 % (42-75); Platelet Count 350 thou/uL (130-400); RBC Distribution Width 14.4 % (11.5-14.5); Red Blood Cell (RBC) Count 4.51 mill/uL (4.20-5.40)
[2019-05-13] MEDS ORDERED: Bumetanide 1 MG TAB PO SCH (07:30)
[2019-05-13] MEDS ORDERED: Carvedilol 6.25 MG TAB PO SCH (08:00)
[2019-05-13] MEDS ORDERED: Spironolactone 25 MG TAB PO SCH (08:00)
[2019-05-13] MEDS ORDERED: Aspirin 81 mg Enteric Coated Tablet PO SCH (09:00)
[2019-05-13] MEDS ORDERED: Insulin Glargine 35 UNITS in Pre-Filled Syringe 1 EACH SC SCH (09:00)
[2019-05-13] MEDS ORDERED: Ezetimibe 10 MG TAB PO SCH (09:00)
--- NOTE | 2019-05-13 11:33 | MRI ---
MRI BRAIN WITHOUT CONTRAST: HISTORY: Encephalopathy, vertigo CORRELATION: CT scan from 05/12/2019. FINDINGS: No restricted diffusion is seen. There are multiple foci of T2 prolongation in the periventricular wh ite matter, consistent with chronic small vessel ischemic disease. The ventricular size is appropriate and the basilar cisterns are patent. No evidence of acute infarct, hemorrhage, midline shift or abnormal extra-axial fluid collections is seen. The visualized paranasal sinuses are well-aerated. A tiny amount of fluid is seen in the right mastoi d air cells. IMPRESSION: No evidence of acute intracranial process.
[2019-05-13 12:04] VITALS: BP 101/56; TEMP 98.4
--- NOTE | 2019-05-14 13:57 | DIS ---
DATE OF ADMISSION: 05/12/2019 DATE OF DISCHARGE: 05/13/2019 DISCHARGE DIAGNOSES: 1. Acute encephalopathy, presumed to be related to an atypical migraine. 2. Headache. 3. Chronic cardiomyopathy. 4. Coronary artery disease. 5. Hyperlipidemia. 6. Diabetes mellitus. HISTORY OF PRESENT ILLNESS: This patient is a 48-year-old female, who has a history of the above-mentioned ischemic cardiomyopathy and diabetes. The patient reported she was in her usual state of health until the day of admission. She reported on that day she had gone to see her GI doctor and while waiting, started to become very somnolent and had a difficult time staying awake and felt generally lightheaded, dizzy, and had some posterior headache. She thought perhaps it was a lack of food, so she went to eat. During lunch, had similar symptoms. She then tried to follow up with her glass curvature gauger and was having similar issues in the waiting room there and therefore, was sent to the emergency department via ambulance. She did have her blood sugar checked by EMS and it was within the normal range. She was subsequently brought to the ER, where her workup was largely unremarkable other than having a low level elevation of her white count at 13.9. Her GFR was consistent with her prior numbers and her GFR was around 46. She had a slight elevation of troponin 0.067, which is consistent with all of her prior numbers and was not felt to be abnormal given her renal function and history. HOSPITAL COURSE: The patient was placed in observation. At the time of my initial evaluation, the patient was essentially back to being completely normal other than having some posterior headache. Her exam was unremarkable. She was maintained on observation on telemetry. She had serial enzymes performed, which remained slightly elevated with her troponins, but did not follow any type of physiologic pattern and again was consistent with her historical numbers. She did have an MRI of the head given her history of significant atherosclerotic disease and symptoms concerning for possible posterior circulation CVA; however, there were no evidence of any acute problems. Being the patient was fully back to baseline mental status and had been throughout the time of admission and her workup being negative, she was felt to be stable for discharge to home. PHYSICAL EXAMINATION: VITAL SIGNS: On the day of discharge, temperature is 98.4, pulse 79, respirations 16, O2 saturation 98% on room air, BP was 101/56. GENERAL: She is awake and alert. HEART: Regular rate and rhythm. LUNGS: Clear. ABDOMEN: Benign. EXTREMITIES: No edema. DISPOSITION: The patient is discharged to home. She is to maintain a heart healthy diabetic diet. ACTIVITY: As tolerated. MEDICATIONS: She will remain on her usual home medications with no changes. FOLLOWUP: She is to follow up with her PCP. She is also encouraged to follow up with Dr. Matute, so that there can be information obtained from the LifeVest that she is wearing to determine if there were any rhythm issues associated with her symptoms. I did explain the patient that this was likely related to an atypical migraine and she should continue to manage migraines as she has in the past going forward. Job ID: [id number]
--- NOTE | 2019-05-24 16:10 | EKG ---
Test Reason : Blood Pressure : / mmHG Vent. Rate : 081 BPM Atrial Rate : 081 BPM P-R Int : 230 ms QRS Dur : 094 ms QT Int : 404 ms P-R-T Axes : 037 -16 079 degrees QTc Int : 469 ms Sinus rhythm with 1st degree A-V block Left atrial enlargement Septal infarct , age undetermined Abnormal ECG Confirmed by PATRICK LEE, FREDY Pardo ([id number]), scientific editor SUSAN ACOSTA ([id number]) on 05/24/2019 4:09:53 PM Referred By: Confirmed By:FREDY NGUYEN MD
== END 2019-05-13 15:21 | disposition home or self-care (01) ==
LOC: ERS 14:18 → ERHOLD 17:21 → 2SW 20:52
PROVIDERS: ADMIT Hospitalist; ATTEND Hospitalist
DX: G93.40 Encephalopathy, unspecified (principal); I12.9 Hypertensive chronic kidney disease with stage 1 through stage 4 chronic kidney disease, or unspecified chronic kidney disease; E11.22 Type 2 diabetes mellitus with diabetic chronic kidney disease; N18.3 Chronic kidney disease, stage 3 (moderate); E78.5 Hyperlipidemia, unspecified; I25.10 Atherosclerotic heart disease of native coronary artery without angina pectoris; I25.2 Old myocardial infarction; I25.5 Ischemic cardiomyopathy; Z79.4 Long term (current) use of insulin; Z79.82 Long term (current) use of aspirin; Z79.899 Other long term (current) drug therapy
CPT/HCPCS: 36415; 36416; 70450; 70551; 80048; 80053; 80306; 82140; 82550; 82553; 83880; 84484; 85007; 85025; 85027; 87804; 93005; 96374; G0378; J1815; J2310

== ENCOUNTER 2019-06-09 08:19 | Outpatient (CLI) | payer BC ==
--- NOTE | 2019-06-09 15:38 | NM ---
RADIONUCLIDE GASTRIC EMPTYING SCAN WITH MEAL: HISTORY: Nausea with vomiting, unspecified. RADIOPHARMACEUTICAL: Technetium 99m sulfur colloid 1.9 millicuries administered orally in scrambled eggs. FINDINGS: There is 69% emptying of the ingested gastric contents at one hour, 77% emptying at two hours, 85% em ptying at three hours and 88% emptying at four hours. IMPRESSION: Delayed gastric emptying. POS: [facility]
== END 2019-06-09 08:20 | disposition home or self-care (01) ==
LOC: NM 08:19
PROVIDERS: ATTEND Physician Assistant Medical
DX: K21.9 Gastro-esophageal reflux disease without esophagitis (principal); R11.2 Nausea with vomiting, unspecified; R14.0 Abdominal distension (gaseous); K30 Functional dyspepsia
CPT/HCPCS: 78264; A9541

== ENCOUNTER 2019-07-01 10:39 | Observation (INO) | payer BC ==
[2019-07-01] MEDS ORDERED: Aspirin Chewable 81 MG TAB ONE (11:26)
[2019-07-01] MEDS ORDERED: Acetaminophen 500 MG TAB ONE (11:26)
[2019-07-01] MEDS ORDERED: Furosemide 40 MG/4 ML VIAL ONE (11:26)
--- NOTE | 2019-07-01 11:33 | RAD ---
Portable chest: HISTORY: Chest pain COMPARISON: none FINDINGS: Lung nix are clear. Heart and mediastinum appear unremarkable. Vascularity is normal. Visualized osseous structures unremarkable. IMPRESSION: No acute finding
[2019-07-01 11:56] LABS: ALT (SGPT) 9 U/L (8-55); AST (SGOT) 10 U/L (5-34); Albumin 3.6 g/dL (3.5-5.0); Alkaline Phosphatase 97 U/L (40-110); Anion Gap 11 mmol/L (10-20); BUN (Urea Nitrogen) 15 mg/dL (7.0-18.7); Bilirubin, Total 0.3 mg/dL (0.2-1.2); Calc. Creatinine Clearance 0 mL/min (70-130); Calcium 9.2 mg/dL (7.8-10.44); Carbon Dioxide 23 mmol/L (22-29); Chloride 108 mmol/L (98-107); Estimated GFR-MDRD 65; Globulin 3.6 g/dL (2.4-3.5); Glucose 78 mg/dL (70-105); Potassium 3.8 mmol/L (3.5-5.1); Protein, Total 7.2 g/dL (6.0-8.3); Sodium 138 mmol/L (136-145)
[2019-07-01 11:59] LABS: #Basophils 0.1 thou/uL (0.0-0.2); #Eosinphils 0.3 thou/uL (0.0-0.7); #Lymphocytes 2.4 thou/uL (1.20-3.40); #Monocytes 0.5 thou/uL (0.11-0.59); %Basophils 0.7 % (0.0-1.0); %Eosinophils 3.3 % (0.0-10.0); %Lymphocytes 25.9 % (21.0-51.0); %Monocytes 5.6 % (0.0-10.0); %Neutrophils 64.6 % (42.0-75.0); Hemoglobin 11.8 g/dL (12.0-16.0); Mean Corpuscular HGB CONC 32.8 g/dL (32.0-36.0); Mean Corpuscular Hemoglobin 25.3 pg (27.0-31.0); Mean Platelet Volume 7.7 fL (7.4-10.4); Platelet Count 316 thou/uL (130-400); RBC Distribution Width 14.6 % (11.5-14.5); Red Blood Cell (RBC) Count 4.68 mill/uL (4.20-5.40); White Blood Cell (WBC) Count 9.3 thou/uL (4.8-10.8)
[2019-07-01 12:00] LABS: CKMB 1.3 ng/mL (0-6.6)
[2019-07-01] MEDS ORDERED: Iopamidol-370 76% 500 ML 1 ML ONE (13:59)
--- NOTE | 2019-07-01 14:33 | CT ---
CTA CHEST WITH CONTRAST: Date: 07/01/2019 Axial tomograms obtained following pulmonary angio protocol with multiplanar reconstruction and 3D po stprocessing. INDICATION: Dyspnea. Shortness of breath. History states recent myocardial infarction treated in [place]. FINDINGS: Pulmonary arteries are adequately opacified. No evidence of pulmonary embolus identified. Thoracic aorta is unremarkable. No evidence of dissection. The lung nix are clear with no evidence of infiltrate or effusion. Mediastinum unremarkable. Image s through upper abdomen unremarkable. IMPRESSION: 1. No evidence of pulmonary embolus. 2. No acute lung process identified. POS: [facility]
--- NOTE | 2019-07-01 16:24 | PDOC.FPRHP ---
- History of Present Illness Chief Complaint: Chest Pain History of Present Illness: Patient is a 48 y/o female with a PMH significant for extensive cardiac dysfunction - to include > 5 MIs, multiple stent placements, HTN and HLD - who presents to the ED for CP. Per the patient, she had an OK ~1.5 weeks prior in the [facility] for which she received a heart catheterization and stent placement. She continued to have pain prior to discharge, and states that her pain has been relatively constant (5/10) since then, but presents to the ED this evening because it "feels like a bothersome discomfort." She states that the pain is dull, localized to the area under her left breast and epigastric area, is without radiation, and is worse with inspiration and when lying flat. She states that it feels better when sitting up in bed, but denies any other forms of intervention. She also states that taking a hot shower helps. She states that she has not missed taking any of her previously prescribed medications. She admits to new-onset GUERRERO, weakness, occasional feelings of being cold/clammy , blurry vision, nausea, vomiting (mucus and stomach contents), feeling like she needs to burp, worsening GUZMAN, sinus congestion, new-onset LLQ pain, diarrhea , and subjective LE edema. She denies fevers, chills, SOB, hearing changes, rhinorrhea, epistaxis, cough, sore throat, dysuria or hematuria, Patient has been wearing Life Vest for > 3 months - states that Dr. Joyce (EP) was planning to place an AICD sometime in the near future. ED Course: EKst Degree AV Block w/o Evidence of ST-Elevation or Depression Trop: 0.044 - Allergies/Adverse Reactions Allergies Allergy/AdvReac Type Severity Reaction Status Date / Time No Known Drug Allergies Allergy Verified 07/01/19 18:15 - Home Medications Medication Instructions Recorded Confirmed Type Sertraline HCl [Zoloft] 150 mg PO DAILY 05/05/18 07/01/19 History Atorvastatin Calcium [Lipitor] 80 mg PO DAILY 11/08/18 07/01/19 History Isosorbide Mononitrate [Imdur] 60 mg PO DAILY 11/08/18 07/01/19 History SUMAtriptan Succinate [Imitrex] 50 mg PO PRN PRN 11/08/18 07/01/19 History Ezetimibe [Zetia] 10 mg PO DAILY tab 11/12/18 07/01/19 Rx Nitroglycerin [Nitrostat] 0.4 mg PO Q5MIN PRN tab 11/12/18 07/01/19 Rx Ranolazine [Ranexa] 1,000 mg PO BID #60 tab 01/07/19 07/01/19 Rx Spironolactone [Aldactone] 25 mg PO BID-WM #60 tab 03/03/19 07/01/19 Rx Ticagrelor [Brilinta] 90 mg PO BID #60 tab 03/03/19 07/01/19 Rx Semaglutide [Ozempic] 0.5 mg SQ Q7DAYS 03/21/19 07/01/19 History Carvedilol [Coreg] 12.5 mg PO BID-WM 03/27/19 07/01/19 History Bumetanide [Bumex] 1 mg PO BID-AC 04/26/19 07/01/19 History Sacubitril/Valsartan [Entresto 24 1 each PO BID 04/26/19 07/01/19 History mg-26 mg Tablet] HumaLOG [HumaLOG Vial] 15 unit SC TID-WM 05/12/19 07/01/19 History Amlodipine Besylate [amLODIPine 10 mg PO DAILY 07/01/19 07/01/19 History Besylate] Furosemide 40 mg PO BID 07/01/19 07/01/19 History Insulin Glargine [Lantus Vial] 45 units SC BID 07/01/19 History - History PMHx: > 5 MIs, CHF, HTN, HLD PSHx: Stent Placement x9 FHx: CAD in Multiple Family Members Social: Denies x3 Code: Full - Review of Systems General: reports: fatigue. denies: fever/chills, weight/appetite/sleep changes Eyes: reports: vision changes ENT: denies: nasal congestion, rhinorrhea Respiratory: reports: shortness of breath, exercise intolerance. denies: cough , congestion Cardiovascular: reports: chest pain, edema, paroxysmal nocturnal dyspnea, orthopnea. denies: palpitation Gastrointestinal: reports: nausea, vomiting, diarrhea, abdominal pain. denies: GI bleeding Genitourinary: denies: dysuria Skin: denies: rashes Musculoskeletal: reports: swelling. denies: pain Neurological: reports: weakness - Vital signs BP: [153/82] HR: [95] RR: [22] Tmax: [--] Pox: [100]% on [Room Air] Wt: [120 kg] - Physical Exam Constitutional: NAD, awake, alert and oriented, well developed HEENT: normocephalic and atraumatic, PERRLA, conjunctiva clear, no scleral icterus, grossly normal vision, grossly normal hearing, normal nasal mucosa, MMM , oropharynx clear Neck: supple, FROM, trachea midline, no LAD, no JVD, no bruits Chest: no lesions, other (Mild TTP at epigastric area) Heart: RRR, normal S1/S2, no murmurs/rubs/gallops, pulses present, no edema Lungs: CTAB, no respiratory distress, good air movement, no rales/rhonchi, no wheezing, no retractions Abdomen: soft, bowel sounds present, no masses/distention, no hernias, other ( LLQ TTP) Musculoskeletal: normal structure, ROM grossly normal Neurological: no focal deficit Skin: no rash/lesions, no jaundice Heme/Lymphatic: no unusual bruising or bleeding, no purpura, no petechia, no LAD Psychiatric: normal mood and affect FMR H&P: Results - Labs Result Diagrams: 07/01/19 11:48 07/01/19 11:19 Lab results: WBC 9.3 thou/uL (4.8-10.8) 07/01/19 11:48 Hgb 11.8 g/dL (12.0-16.0) L 07/01/19 11:48 Hct 36.1 % (36.0-47.0) 07/01/19 11:48 MCV 77.0 fL (78.0-98.0) L 07/01/19 11:48 Plt Count 316 thou/uL (130-400) 07/01/19 11:48 Neutrophils % 64.6 % (42.0-75.0) 07/01/19 11:48 Sodium 138 mmol/L (136-145) 07/01/19 11:19 Potassium 3.8 mmol/L (3.5-5.1) 07/01/19 11:19 Chloride 108 mmol/L (98-107) H 07/01/19 11:19 Carbon Dioxide 23 mmol/L (22-29) 07/01/19 11:19 BUN 15 mg/dL (7.0-18.7) 07/01/19 11:19 Creatinine 0.92 mg/dL (0.6-1.1) 07/01/19 11:19 Glucose 78 mg/dL (70-105) 07/01/19 11:19 Calcium 9.2 mg/dL (7.8-10.44) 07/01/19 11:19 Total Bilirubin 0.3 mg/dL (0.2-1.2) 07/01/19 11:19 AST 10 U/L (5-34) 07/01/19 11:19 ALT 9 U/L (8-55) 07/01/19 11:19 Alkaline Phosphatase 97 U/L (40-110) 07/01/19 11:19 CK-MB (CK-2) 1.3 ng/mL (0-6.6) 07/01/19 11:19 B-Natriuretic Peptide 224.3 pg/mL (0-100) H 07/01/19 11:19 Serum Total Protein 7.2 g/dL (6.0-8.3) 07/01/19 11:19 Albumin 3.6 g/dL (3.5-5.0) 07/01/19 11:19 FMR H&P: A/P - Problem List (1) Chronic systolic (congestive) heart failure Current Visit: No Status: Acute Code(s): I50.22 - CHRONIC SYSTOLIC ( CONGESTIVE) HEART FAILURE (2) CAD (coronary artery disease) Current Visit: No Status: Chronic Code(s): I25.10 - ATHSCL HEART DISEASE OF [place] CORONARY ARTERY W/O ANG PCTRS Qualifiers: Coronary Disease-Associated Artery/Lesion type: [place] artery Associated angina: with unstable angina (3) DM type 2 (diabetes mellitus, type 2) Current Visit: No Status: Chronic 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 1. Atypical Chest Pain -Left-sided / epigastric pain, worse with inspiration and reproducible with palpation -Patient appeared hemodynamically stable in the ED and did not require supplemental O2 -EKst Degree AV Block w/o ST-Elevation or Depression -Trop: 0.044 - will continue to trend -BNP: Pending -CXR: NAF -CTA Thorax: NAF -Will administer ASA and Morphine -Consider Cardiology if Trops continue to rise 2. HTN -BP was elevated during evaluation in the ED -Will restart home medication regimen 3. HLD -Continue home medication regimen -Most recent FLP was in 04/22 - will not repeat at this time 4. CAD -Continue home medication regimen -Most recent FLP was in 04/22 - will not repeat at this time 5. DM2 -Blood Glucose: 72 on 07/01/2019 -Mild SSI -Accuchecks -Continue home medication regimen Code: Full Diet: HH w/ Low Sodium IVF: None Activity: Ad Sylwia VTE PPx: SCDs and Lovenox Dispo: Patient is currently admitted to the Telemetry Floor for observation. Chest pain in light of extensive cardiac history is concerning, but prolonged course and atypical features appear less likely to be related to ACS. Will trend Trops and monitor vital signs closely. Expected LOS < 48H. FMR H&P: Upper Level - Pertinent history Ms Hayes is a 48yo female with extensive cardiac hx including CAD, OK 9 days ago, HFrEF with lifevest, HLD, HTN, DMII presents with substernal chest pain associated with nausea, vomiting and diaphoresis. Reports having this pain prior to presenting to ED with her last OK that she was discharged from the hospital from 9 days ago. Reports she had the pain at discharge and it has been constant over the last 9 days. Worse with deep breaths and walking. She came in today bc she was concerned it was not resolving. Vomited this morning. Denies SOB. - Plan Date/Time: 07/01/19 1624 PE: General: NAD CV: RRR no murmurs. CP nonreproducible with palpation. Pulm: CTA b/l, no resp distress Abd: Nontender Extremities: No edema A/P: Typical chest pain. Will give ASA. No ST segment changes on EKG. Initial trop indeterminate at 0.044-> 0.043. CTA no acute findings. Will admit to tele and monitor overnight. Continue home CAD meds. I, Alysa Abernathy, have evaluated this patient and agree with findings/plan as outlined by general intern resident. Pertinent changes/additions are listed here. Addendum - Attending - Attending Attestation Date/Time: 07/01/19 8927 I personally evaluated the patient and discussed the management with Dr. Gerardo. I agree with the History, Examination, Assessment and Plan documented above with any addition or exceptions noted below. Patient with lower left subcostal chest discomfort that has improved since admission. Not suggestive of unstable angina and no ECG findings. She is quite high risk. Will plan on trending TnI and consider cardiology consultation in the AM.
[2019-07-01 17:12] LABS: Troponin I 0.043 ng/mL (< 0.028)
[2019-07-01 17:30] VITALS: BMI 44.1
[2019-07-01] MEDS ORDERED: Nitroglycerin 0.4 MG TAB (25 Tab Bottle) PO PRN (17:37)
[2019-07-01] MEDS ORDERED: Acetaminophen 325 MG TAB PO PRN (17:37)
[2019-07-01] MEDS ORDERED: Ondansetron ODT 4 MG TAB PO PRN (17:37)
[2019-07-01] MEDS ORDERED: Morphine 2 MG/ML SYRINGE SLOW IVP SCH (18:30)
[2019-07-01] MEDS ORDERED: Dextrose 50% Abboject 50 ML SYRINGE SLOW IVP PRN (19:30)
[2019-07-01] MEDS ORDERED: HumaLOG 300 UNITS/3 ML VIAL SC PRN (19:30)
[2019-07-01] MEDS ORDERED: Dextrose 5% in Water 1,000 ML IV PRN (19:30)
[2019-07-01] MEDS ORDERED: SUMAtriptan Succinate 50 MG TAB PO PRN (19:38)
[2019-07-01 19:59] LABS: Troponin I 0.043 ng/mL (< 0.028)
[2019-07-01] MEDS: Insulin Glargine 45 UNITS in Pre-Filled Syringe 1 EACH SC SCH (21:14)
[2019-07-01] MEDS: TICAGRELOR 90 MG TABLET PO SCH (21:14)
[2019-07-01] MEDS: Famotidine 20 MG TAB PO SCH (21:14)
[2019-07-02] MEDS ORDERED: Morphine 2 MG/ML SYRINGE SLOW IVP SCH (04:30)
[2019-07-02 05:04] LABS: Troponin I 0.045 ng/mL (< 0.028)
--- NOTE | 2019-07-02 06:17 | PDOC.FM ---
- Subjective Subjective: Overnight had another episode of chest pain, reports it was different- located in axilla. At that time took Tylenol and Nitro and pain moved to left substernal radiating to back. EKG no signs of acute ischemia and trop drawn at that time stable. Her pain resolved with IV Morphine. This morning she is chest pain free. Pain is reproducible when she presses on it. Denies SOB, GERD. - Objective MAR Reviewed: Yes Vital Signs & Weight: Vital Signs (12 hours) Temp Pulse Resp BP BP Pulse Ox 07/02/19 04:29 93 18 135/83 98 07/02/19 04:00 98.0 F 96 18 129/72 98 07/02/19 03:40 98.0 F 92 18 169/97 H 100 07/02/19 00:00 97.9 F 89 20 136/61 98 07/01/19 20:00 97.5 F L 84 18 154/63 H 100 07/01/19 18:34 97.2 F L 88 18 169/80 H 96 Weight Weight 120.202 kg I&O: 06/30/19 07/01/19 07/02/19 06:59 06:59 06:59 Intake Total 1300 Output Total 900 Balance 400 Result Diagrams: 07/01/19 11:48 07/01/19 11:19 Phys Exam - Physical Examination Constitutional: NAD HEENT: moist MMs Neck: supple Respiratory: no wheezing, clear to auscultation bilateral Cardiovascular: RRR, no significant murmur Chest pain reproducible to palpation Gastrointestinal: soft, non-tender Musculoskeletal: pulses present Neurological: moves all 4 limbs Psychiatric: normal affect, A&O x 3 Dx/Plan (1) Chronic systolic (congestive) heart failure Code(s): I50.22 - CHRONIC SYSTOLIC (CONGESTIVE) HEART FAILURE Status: Acute (2) CAD (coronary artery disease) Code(s): I25.10 - ATHSCL HEART DISEASE OF [place] CORONARY ARTERY W/O ANG PCTRS Status: Chronic Qualifiers: Coronary Disease-Associated Artery/Lesion type: [place] artery Associated angina: with unstable angina (3) DM type 2 (diabetes mellitus, type 2) Status: Chronic Qualifiers: 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 Trops stable. CXR with no acute findings. CTA neg for PE. Continue daily ASA. Pain resolves with Morphine but not Nitro. Reproducible to palpation. HTN - Continue home meds HLD - Continue home meds CAD - Continue home meds DM2 - Mild SSI, Accuchecks. CC diet - Continue home meds Code Status: Full DVT ppx: Lovenox Dispo: Likely d/c home today Addendum - Attending - Attending Attestation Date/Time: 07/02/19 9469 I personally evaluated the patient and discussed the management with Dr. Abernathy. I agree with the History, Examination, Assessment and Plan documented above with any addition or exceptions noted below. Patient improved. No recurrent chest pain. Her pain is MSK as it is reproducible in nature. ACS has been ruled out. Recent cath and stress testing so no need to repeat. Trops indeterminate, but lower than on previous admissions. EKG stable. She will follow up outpatient with her music intern.
[2019-07-02] MEDS ORDERED: Bumetanide 1 MG TAB PO SCH (07:30)
[2019-07-02] MEDS ORDERED: Carvedilol 6.25 MG TAB PO SCH (08:00)
[2019-07-02] MEDS ORDERED: Spironolactone 25 MG TAB PO SCH (08:00)
[2019-07-02] MEDS ORDERED: HumaLOG 300 UNITS/3 ML VIAL SC SCH (08:00)
[2019-07-02 08:15] VITALS: BP 125/86; TEMP 98.1
[2019-07-02] MEDS ORDERED: Amlodipine 10 MG TAB PO SCH (09:00)
[2019-07-02] MEDS ORDERED: Enoxaparin Sodium 40 MG/0.4 ML SYRINGE SC SCH (09:00)
[2019-07-02] MEDS ORDERED: Furosemide 40 MG TAB PO SCH (09:00)
[2019-07-02] MEDS ORDERED: FLU VACC QS2019-20(6MOS UP)/PF 60 MCG/0.5 ML SYRINGE IM ONE (09:00)
[2019-07-02] MEDS ORDERED: Ezetimibe 10 MG TAB PO SCH (09:00)
[2019-07-02] MEDS ORDERED: Atorvastatin Calcium 40 MG TAB PO SCH (09:00)
[2019-07-02] MEDS: Famotidine 20 MG TAB PO SCH (09:54)
[2019-07-02] MEDS: TICAGRELOR 90 MG TABLET PO SCH (09:55)
[2019-07-02] MEDS: Insulin Glargine 45 UNITS in Pre-Filled Syringe 1 EACH SC SCH (10:07)
--- NOTE | 2019-07-02 19:00 | DIS ---
DATE OF ADMISSION: 07/01/2019 DATE OF DISCHARGE: 07/02/2019 RESIDENT: Alysa Abernathy, PGY-2. ADMITTING ATTENDING: Iglesia Geller MD DISCHARGE ATTENDING: Hussain Campo MD. CONSULT: None. PROCEDURES: 1. Chest x-ray on 07/01/2019, no acute findings. 2. Chest CTA on 07/01/2019, no evidence of PE. No acute lung process identified. PRIMARY DIAGNOSIS: Atypical chest pain. SECONDARY DIAGNOSES: 1. Hypertension. 2. Hyperlipidemia. 3. Coronary artery disease. 4. Recent myocardial infarction. 5. Type 2 diabetes. DISCHARGE MEDICATIONS: 1. Nitroglycerin 0.4 mg p.o. q.5 minutes p.r.n. 2. Tylenol 650 mg q.4 hours p.r.n. 3. Amlodipine 10 mg p.o. daily. 4. Atorvastatin 80 mg p.o. daily. 5. Bumex 1 mg p.o. b.i.d. 6. Carvedilol 12.5 mg b.i.d. 7. Zetia 10 mg p.o. daily. 8. Famotidine 20 mg b.i.d. 9. Furosemide 40 mg b.i.d. 10. Isosorbide mononitrate 60 mg p.o. daily. 11. Ranexa 1000 mg b.i.d. 12. Entresto one tablet b.i.d. 13. Sertraline 150 mg daily. 14. Spironolactone 25 mg b.i.d. 15. Imitrex 50 mg p.o. p.r.n. 16. Brilinta 90 mg b.i.d. 17. Insulin glargine 45 units b.i.d. 18. Semaglutide 0.5 mg subcu q.7 days. HISTORY OF PRESENT ILLNESS/HOSPITAL COURSE: Ms. Hayes is a 48-year-old female with extensive past medical history for coronary artery disease, multiple MIs and stent placements, hypertension, hyperlipidemia, and type 2 diabetes, presents to the ER with chest pain. Reports feeling a similar chest pain in the [facility], went to the ER and diagnosed and treated for GA. At discharge, she had the same pain and has continued to have it over the last 9 days. It did not get worse, it was constant, but was concerned that it was not getting improving. She did have some associated nausea and diaphoresis. Reports the pain is reproducible when she pushes on her chest. Her EKG showed first-degree AV block without evidence of ST- segment depression or elevation. Initial troponin 0.044, followed by 0.043. She has a LifeVest on and reported that she has been following with Dr. Joyce since the time of her LifeVest placed in May. However, she was pushed back to June then to Jul 8thm now after GA it has been pushed back further. Vital signs were stable at discharge with slightly elevated blood pressure 153/82. She underwent CTA and chest x-ray which were both showed no acute abnormalities. Labs were notable for hemoglobin 11.8. BNP 224.3. Pain was relieved with morphine. She had recurrence of the pain overnight and was given Tylenol and nitroglycerin. Pain constant substernal, radiating to back. EKG was repeated and showed no acute change. Troponin was reordered and resulted at 0.045. She was given a dose of morphine pain alleviated. She is discharged in stable condition. Follows up with Dr. Matute, Cardiology , and had called him for an appointment on the day of admission and was directed to come to the ER. It is noted that she is reportedly taking Bumex 1 mg b.i.d. as well as Lasix 40 mg b.i.d. It is unclear why she is on two diuretics. She is also on a calcium channel ruth, amlodipine with her history of systolic heart failure, this may be contraindicated. She can discuss this with her primary care doctor at followup. DISPOSITION: Stable. DISCHARGE INSTRUCTIONS: 1. Location: Home. 2. Diet: Heart healthy, carb consistent, fluid restriction to 2 L. 3. Activity: Cardiopulmonary limit. 4. Follow up with Dr. Subhash Matute within 3 weeks and PCP, Dr. Austin within 5 days. Job ID: [id number] [facility]
== END 2019-07-02 12:17 | disposition home or self-care (01) ==
LOC: ERS 10:39 → 2SW 16:14
PROVIDERS: ADMIT Family Medicine; ATTEND Family Medicine
DX: R07.89 Other chest pain (principal); I11.0 Hypertensive heart disease with heart failure; I50.23 Acute on chronic systolic (congestive) heart failure; E78.5 Hyperlipidemia, unspecified; I25.10 Atherosclerotic heart disease of native coronary artery without angina pectoris; E11.9 Type 2 diabetes mellitus without complications; I25.2 Old myocardial infarction; I44.0 Atrioventricular block, first degree; F41.9 Anxiety disorder, unspecified; F32.9 Major depressive disorder, single episode, unspecified; Z79.02 Long term (current) use of antithrombotics/antiplatelets; Z79.4 Long term (current) use of insulin; Z79.899 Other long term (current) drug therapy; Z95.5 Presence of coronary angioplasty implant and graft
CPT/HCPCS: 36415; 36416; 71045; 71275; 80053; 82553; 83880; 84484; 85025; 90471; 90686; 93005; 93010; 94760; 96372; 96374; 96375; 96376; G0008; G0378; J1650; J1815; J1940; J2270; Q9967

== ENCOUNTER 2019-07-26 23:54 | Observation (INO) | payer BC ==
[2019-07-27] MEDS ORDERED: Nitroglycerin 2% Ointment 1 INCH/1 GM Packet ONE (00:22)
[2019-07-27] MEDS ORDERED: Aspirin Chewable 81 MG TAB ONE (00:22)
[2019-07-27 00:32] LABS: #Basophils 0.1 thou/uL (0.0-0.2); #Eosinphils 0.6 thou/uL (0.0-0.7); #Lymphocytes 2.4 thou/uL (1.20-3.40); #Monocytes 0.7 thou/uL (0.11-0.59); #Neutrophils 9.3 thou/uL (1.40-6.50); %Basophils 0.6 % (0.0-1.0); %Eosinophils 4.4 % (0.0-10.0); %Lymphocytes 18.2 % (21.0-51.0); %Monocytes 5.1 % (0.0-10.0); %Neutrophils 71.6 % (42.0-75.0); Hemoglobin 12.7 g/dL (12.0-16.0); Mean Corpuscular HGB CONC 33.4 g/dL (32.0-36.0); Mean Corpuscular Hemoglobin 25.2 pg (27.0-31.0); Mean Corpuscular Volume 75.6 fL (78.0-98.0); Mean Platelet Volume 8.1 fL (7.4-10.4); Platelet Count 259 thou/uL (130-400); Red Blood Cell (RBC) Count 5.04 mill/uL (4.20-5.40); White Blood Cell (WBC) Count 12.9 thou/uL (4.8-10.8)
[2019-07-27 00:49] LABS: ALT (SGPT) 9 U/L (8-55); AST (SGOT) 10 U/L (5-34); Albumin 3.7 g/dL (3.5-5.0); Alkaline Phosphatase 111 U/L (40-110); Anion Gap 14 mmol/L (10-20); BUN (Urea Nitrogen) 21 mg/dL (7.0-18.7); Bilirubin, Total 0.3 mg/dL (0.2-1.2); Calc. Creatinine Clearance 0 mL/min (70-130); Calcium 9.8 mg/dL (7.8-10.44); Carbon Dioxide 24 mmol/L (22-29); Chloride 103 mmol/L (98-107); Estimated GFR-MDRD 49; Globulin 4.1 g/dL (2.4-3.5); Glucose 69 mg/dL (70-105); Lipase 69 U/L (8-78); Potassium 3.6 mmol/L (3.5-5.1); Protein, Total 7.8 g/dL (6.0-8.3); Sodium 137 mmol/L (136-145)
[2019-07-27 01:10] LABS: CKMB 0.5 ng/mL (0-6.6)
[2019-07-27] MEDS ORDERED: Diazepam 10 MG/2 ML SYRINGE ONE (03:01)
[2019-07-27 03:39] LABS: Troponin I 0.199 ng/mL (< 0.028)
--- NOTE | 2019-07-27 03:51 | PDOC.FPRHP ---
- History of Present Illness Chief Complaint: Pacemaker keeps firing History of Present Illness: 48 yo female presents for ongoing pacemaker firings since 12:00 PM on 07/26. Patient reports it occurs every few minutes and feels like a small shock. She had device placed by Dr. Joyce on 07/25. She reports that it was placed due to her heart rate going "way too low." She notes that she has had some chest pains due to the shocks, but nothing like her previous heart attacks. She denies recent illness or changes to her overall health. ED Course: Nitro transdermal ASA 325 mg Valium 5 mg - Allergies/Adverse Reactions Allergies Allergy/AdvReac Type Severity Reaction Status Date / Time No Known Drug Allergies Allergy Verified 07/01/19 18:15 - Home Medications Medication Instructions Recorded Confirmed Type Sertraline HCl [Zoloft] 150 mg PO DAILY 05/05/18 07/01/19 History Atorvastatin Calcium [Lipitor] 80 mg PO DAILY 11/08/18 07/01/19 History Isosorbide Mononitrate [Imdur] 60 mg PO DAILY 11/08/18 07/01/19 History SUMAtriptan Succinate [Imitrex] 50 mg PO PRN PRN 11/08/18 07/01/19 History Ezetimibe [Zetia] 10 mg PO DAILY tab 11/12/18 07/01/19 Rx Nitroglycerin [Nitrostat] 0.4 mg PO Q5MIN PRN tab 11/12/18 07/01/19 Rx Ranolazine [Ranexa] 1,000 mg PO BID #60 tab 01/07/19 07/01/19 Rx Spironolactone [Aldactone] 25 mg PO BID-WM #60 tab 03/03/19 07/01/19 Rx Ticagrelor [Brilinta] 90 mg PO BID #60 tab 03/03/19 07/01/19 Rx Semaglutide [Ozempic] 0.5 mg SQ Q7DAYS 03/21/19 07/01/19 History Carvedilol [Coreg] 12.5 mg PO BID-WM 03/27/19 07/01/19 History Bumetanide [Bumex] 1 mg PO BID-AC 04/26/19 07/01/19 History Sacubitril/Valsartan [Entresto 24 1 each PO BID 04/26/19 07/01/19 History mg-26 mg Tablet] HumaLOG [HumaLOG Vial] 15 unit SC TID-WM 05/12/19 07/01/19 History Amlodipine Besylate [amLODIPine 10 mg PO DAILY 07/01/19 07/01/19 History Besylate] Furosemide 40 mg PO BID 07/01/19 07/01/19 History Insulin Glargine [Lantus Vial] 45 units SC BID 07/01/19 07/02/19 History Acetaminophen [Tylenol Regular 650 mg PO Q4H PRN tab 07/02/19 Rx Strength] Famotidine [Pepcid] 20 mg PO BID tab 07/02/19 Rx Insulin Glargine [Lantus Vial] 45 units SC BID vial 07/02/19 Rx Nitroglycerin [Nitrostat] 0.4 mg PO Q5MIN PRN #10 tab 07/02/19 Rx - History PMHx: DM2, HTN, HLD, CHF, CAD, multiple MIs PSHx: Tumor removal, Cardiac stents (multiple), Pacemaker placement FHx: CAD in multiple family members Social: Denies tobacco alcohol or drugs. Lives at home with family - Review of Systems General: denies: fever/chills, weight/appetite/sleep changes ENT: denies: nasal congestion, rhinorrhea Respiratory: denies: cough, shortness of breath Cardiovascular: reports: chest pain, palpitation Gastrointestinal: denies: nausea, vomiting, diarrhea Genitourinary: denies: incontinence, dysuria Skin: denies: rashes, lesions Musculoskeletal: denies: pain, tenderness, stiffness, swelling, arthritis/ arthralgias Neurological: denies: numbness, syncope Psychological: denies: anxiety, depression - Vital signs BP: 111/68 HR: 85 RR: 16 Tmax: 98.2 Pox: 96% on 2L Wt: 115 kg - Physical Exam Constitutional: NAD, awake, alert and oriented HEENT: PERRLA, grossly normal vision, grossly normal hearing, normal nasal mucosa, MMM Neck: supple, trachea midline -Chest: surgical site on left chest well healed and no apparent infection Heart: RRR, normal S1/S2 Lungs: CTAB, no respiratory distress Abdomen: soft, non-tender, bowel sounds present, no masses/distention Musculoskeletal: normal structure, normal tone Neurological: no focal deficit, CN II-XII intact, normal sensation Skin: no rash/lesions, good turgor, capillary refill <2 seconds Heme/Lymphatic: no unusual bruising or bleeding, no purpura Psychiatric: normal mood and affect, good judgment and insight, intact recent and remote memory FMR H&P: Results - Labs Result Diagrams: 07/27/19 00:22 07/27/19 00:22 Lab results: WBC 12.9 thou/uL (4.8-10.8) H 07/27/19 00:22 Hgb 12.7 g/dL (12.0-16.0) 07/27/19 00:22 Hct 38.1 % (36.0-47.0) 07/27/19 00: MCV 75.6 fL (78.0-98.0) L 07/27/19 00:22 Plt Count 259 thou/uL (130-400) 07/27/19 00: Neutrophils % 71.6 % (42.0-75.0) 07/27/19 00:22 Sodium 137 mmol/L (136-145) 07/27/19 00:22 Potassium 3.6 mmol/L (3.5-5.1) 07/27/19 00:22 Chloride 103 mmol/L (98-107) 07/27/19 00:22 Carbon Dioxide 24 mmol/L (22-29) 07/27/19 00:22 BUN 21 mg/dL (7.0-18.7) H 07/27/19 00:22 Creatinine 1.18 mg/dL (0.6-1.1) H 07/27/19 00:22 Glucose 69 mg/dL (70-105) L 07/27/19 00:22 Calcium 9.8 mg/dL (7.8-10.44) 07/27/19 00:22 Total Bilirubin 0.3 mg/dL (0.2-1.2) 07/27/19 00:22 AST 10 U/L (5-34) 07/27/19 00:22 ALT 9 U/L (8-55) 07/27/19 00:22 Alkaline Phosphatase 111 U/L (40-110) H 07/27/19 00:22 CK-MB (CK-2) 0.5 ng/mL (0-6.6) 07/27/19 00:22 Serum Total Protein 7.8 g/dL (6.0-8.3) 07/27/19 00:22 Albumin 3.7 g/dL (3.5-5.0) 07/27/19 00:22 Lipase 69 U/L (8-78) 07/27/19 00:22 - EKG Interpretation EK lead EKG shows normal sinus rhythm, Rate (beats per minute): 96, Conduction normal, ST segments normal, T waves normal, [place], left, DE interval 204 ms. QRS duration 96 ms. QT/QTc 374/472 ms. Septal infarct, age undetermined. - Radiology Interpretation Chest x-ray Status: image reviewed by me (NAD, pacemaker in left chest) FMR H&P: A/P - Problem List (1) Pacemaker complications Current Visit: Yes Status: Acute Code(s): T82.9XXA - UNSP COMP OF CARDIAC AND VASCULAR PROSTH DEV/GRFT, INIT (2) Elevated troponin Current Visit: No Status: Acute Code(s): R79.89 - OTHER SPECIFIED ABNORMAL FINDINGS OF BLOOD CHEMISTRY (3) CAD (coronary artery disease) Current Visit: No Status: Chronic Code(s): I25.10 - ATHSCL HEART DISEASE OF [place] CORONARY ARTERY W/O ANG PCTRS Qualifiers: Coronary Disease-Associated Artery/Lesion type: [place] artery Associated angina: with unstable angina (4) Chronic systolic (congestive) heart failure Current Visit: No Status: Acute Code(s): I50.22 - CHRONIC SYSTOLIC ( CONGESTIVE) HEART FAILURE (5) DM type 2, uncontrolled, with neuropathy Current Visit: No Status: Chronic Code(s): E11.40 - TYPE 2 DIABETES MELLITUS WITH DIABETIC NEUROPATHY, UNSP; E11.65 - TYPE 2 DIABETES MELLITUS WITH HYPERGLYCEMIA (6) Dyslipidemia Current Visit: No Status: Chronic Code(s): E78.5 - HYPERLIPIDEMIA, UNSPECIFIED (7) HTN (hypertension) Current Visit: No Status: Chronic Code(s): I10 - ESSENTIAL (PRIMARY) HYPERTENSION Qualifiers: - Plan Pacemaker Complications - Placed by Dr. Joyce in last week - Interrogated pacemaker in ED and shows undersensing - [employer] rep to see in AM - Consider Cardiology consultation if needed Elevated Troponin - Expected with recent placement and current firing - Trend - Re-evaluate if active chest pain develops DM2, HTN, HLD, CHF All other chronic conditions reviewed and medications to be restarted as appropriate. PCP: Dr. Austin CODE STATUS: FULL CODE Disposition: Stable, will admit for further evaluation of pacemaker malfunction.
[2019-07-27] MEDS ORDERED: Ondansetron PF 4 MG/2 ML Vial IVP PRN (04:22)
[2019-07-27] MEDS ORDERED: Ondansetron ODT 4 MG TAB SL PRN (04:22)
[2019-07-27] MEDS ORDERED: Dextrose 5% in Water 1,000 ML IV PRN (04:29)
[2019-07-27] MEDS ORDERED: Dextrose 50% Abboject 50 ML SYRINGE SLOW IVP PRN (04:29)
[2019-07-27] MEDS ORDERED: Ondansetron ODT 4 MG TAB PO PRN (04:29)
[2019-07-27 06:47] LABS: Troponin I 0.172 ng/mL (< 0.028)
[2019-07-27 07:36] VITALS: BMI 42.5
--- NOTE | 2019-07-27 09:14 | RAD ---
EXAM: CHEST ONE VIEW HISTORY: Cough. Pacemaker firing. COMPARISON: 07/01/2019 FINDINGS: Left subclavian AICD device is now noted in place. The distal lead tip overlies the proximal SVC. Cor relation for proper positioning is recommended. Cardiac silhouette is magnified by projection. Pulmonary vasculature is within normal limits. The lungs are clear. No other interval change. IMPRESSION: Interval placement of left subclavian AICD device. The tip of the AICD lead overlies the proximal SVC . Correlation for proper positioning is recommended.
[2019-07-27] MEDS ORDERED: Aspirin 81 mg Enteric Coated Tablet PO SCH (09:45)
[2019-07-27] MEDS: TICAGRELOR 90 MG TABLET PO SCH ×2 (10:46→21:27)
--- NOTE | 2019-07-27 10:57 | CON ---
DATE OF CONSULTATION: REASON FOR ADMISSION: Recent defibrillator implantation. Failure of device to sense and capture. HISTORY OF PRESENT ILLNESS: Ms. Hayes is a delightful patient. Her primary cafeteria aide is Dr. Subhash Matute. She has history of coronary artery disease and previous stent implantations. The patient states that she was told she had left ventricular dysfunction and needed defibrillator implantation. This was done on Sunday as a single-chamber device. The patient yesterday started noticing some feeling of palpitations. She came to the emergency room and was found to have a lack of sensing and capture on the pacemaker check. The patient is not having chest pain, pressure, heaviness, or squeezing, but she is very alarmed about the symptoms as will be outlined below. MEDICATIONS: At home included: 1. Atorvastatin. 2. Isosorbide. 3. Zetia. 4. Spironolactone. 5. Ticagrelor. 6. Carvedilol. 7. Furosemide. 8. Aspirin. She is also on Entresto. ALLERGIES: NONE KNOWN. SOCIAL HISTORY: No alcohol or tobacco. REVIEW OF SYSTEMS: CONSTITUTIONAL: Positive for being unable to rest. VISION: No changes. HEARING: No changes. PULMONARY: No cough or wheezing. CARDIAC: As outlined above. GASTROINTESTINAL: No nausea, vomiting, or diarrhea. SKIN: No rashes. NEUROLOGIC: No unilateral weakness or numbness. PSYCHIATRIC: No unusual depression or anxiety, although she does feel anxious when this device is pacing. PHYSICAL EXAMINATION: GENERAL: This is a patient, who is having recurrent palpitations, looks like she is likely pacing the phrenic nerve on the right causing diaphragmatic contraction. She is apprehensive about this, understandably so. VITAL SIGNS: Blood pressure 134/74 and pulse 84, regular. HEENT: Eyes, sclerae nonicteric. Mouth, mucous membranes moist. NECK: Supple. No lymphadenopathy. LUNGS: Clear. No wheezing, rales, or rhonchi. CARDIAC: Normal S1 and normal S2. There is no murmur, rub, or gallop. ABDOMEN: She is obese. EXTREMITIES: Warm and dry. No clubbing or cyanosis. No edema. PERTINENT LABORATORY DATA: Hemoglobin is 12.7. Troponin 0.22. IMAGING: Chest x-ray, the right ventricular lead pulled back into what looks like the superior vena cava or the top of the right atrium. ASSESSMENT: 1. Probably right phrenic nerve pacement due to lead dislodgement. I suspect the patient may have unconsciously manipulated the device and pulled the lead back, likely phrenic nerve pacing. 2. Coronary artery disease, stable. PLAN: 1. Resume anti-platelet drugs. 2. Getting the [employer] rep to come and turn the device off today. 3. Need to reposition the lead tomorrow. Dr. Joyce will be notified. Job ID: [id number]
[2019-07-27] MEDS: HumaLOG 300 UNITS/3 ML VIAL SC PRN ×2 (13:44→18:30)
--- NOTE | 2019-07-27 14:26 | HP ---
I have examined the patient and discussed the case with Dr. Jer Fermin and agree with his assessment and plan. Briefly Ms. Hayes is a 48-year-old female with pacemaker. She had reported some abnormal firings and small shocks and was brought into the ER. She is currently asymptomatic and has been seen by the Cardiology Service. PHYSICAL EXAMINATION: GENERAL: She is awake and alert, in no acute distress. VITAL SIGNS: Stable and normal. EAR, NOSE, THROAT: No erythema or exudate. NECK: Supple. CARDIAC: Heart rhythm regular without gallop or murmur. LUNGS: Clear, though diminished. No rales or wheezes noted. ABDOMEN: Flat and soft. NEURO: No focal deficits. LABORATORY DATA: CBC; white count is 12,900, hemoglobin 12.7, hematocrit 38.1 with an MCV of 75.6. Sodium is 137, potassium 3.7, chloride 103, bicarb 24, BUN 21, creatinine 1.18. Her troponins are fairly flat at 0.2, 0.19 and 0.17. Chest x-ray shows that the pulmonary vasculature is within normal and lungs are clear. However, the tip of the AICD overlies the proximal SBC being well out of place. ASSESSMENT: Abnormal firing of AICD with lead placement abnormality. PLAN: The [employer] person has been consulted, but we will also have Dr. Joyce see the patient tomorrow for readjustment. COMMENT: Ms. Hayes also in the past had been worked up for sleep apnea. She states that the test was positive, but she did not go back for CPAP titration and is not using CPAP. She is urged to follow up on this with her PCP. Job ID: [id number]
[2019-07-27] MEDS: Acetaminophen 325 MG TAB PO PRN (16:13)
--- NOTE | 2019-07-28 05:35 | PDOC.FM ---
- Subjective Subjective: Patient doing well this morning. Denies any chest pain now that her pacemaker has been turned off. Discussed that we will try to discuss with Dr. Joyce this morning if he is planning on performing lead placement today. - Objective Vital Signs & Weight: Vital Signs (12 hours) Temp Pulse Resp BP Pulse Ox 07/28/19 00:10 98.6 F 90 16 152/73 H 98 07/27/19 19:50 97.9 F 89 20 129/61 97 Weight Weight 115.757 kg I&O: 07/26/19 07/27/19 07/28/19 06:59 06:59 06:59 Intake Total 1970 Output Total 2200 Balance -230 Result Diagrams: 07/27/19 00:22 07/27/19 00:22 EKG Reviewed by me: Yes (sinus, 1st degree, 80s-90s) Phys Exam - Physical Examination Constitutional: NAD HEENT: moist MMs, sclera anicteric Neck: supple, full ROM Respiratory: no wheezing, clear to auscultation bilateral Cardiovascular: RRR, no significant murmur Gastrointestinal: soft, non-tender Musculoskeletal: no edema, pulses present Neurological: non-focal, moves all 4 limbs Psychiatric: normal affect, A&O x 3 Skin: no rash, normal turgor Dx/Plan (1) Pacemaker complications Code(s): T82.9XXA - UNSP COMP OF CARDIAC AND VASCULAR PROSTH DEV/GRFT, INIT Status: Acute (2) Chronic systolic (congestive) heart failure Code(s): I50.22 - CHRONIC SYSTOLIC (CONGESTIVE) HEART FAILURE Status: Chronic (3) Elevated troponin Code(s): R79.89 - OTHER SPECIFIED ABNORMAL FINDINGS OF BLOOD CHEMISTRY Status : Acute (4) CAD (coronary artery disease) Code(s): I25.10 - ATHSCL HEART DISEASE OF [place] CORONARY ARTERY W/O ANG PCTRS Status: Chronic Qualifiers: Coronary Disease-Associated Artery/Lesion type: [place] artery Associated angina: with unstable angina (5) DM type 2 (diabetes mellitus, type 2) Status: Chronic Qualifiers: 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 Joyce last Sunday - Interrogated pacemaker in ED and showed undersensing - [employer] rep turned off pacemaker for now - Cardiology consulted, Dr. Sumner, contacted Dr. Joyce for pacemaker lead repositioning today; will f/u consult #Elevated Troponin - Expected with recent placement and current firing - Trended down - Re-evaluate if active chest pain develops #HTN -continue home meds #DM2 -continue home meds #HLD -continue home meds #HfrEF -continue home meds PCP: Dr. Austin Diet: NPO DVT ppx: SCDs CODE STATUS: FULL CODE Disposition: Stable, plan for pacemaker lead repositioning today Addendum - Attending - Attending Attestation Date/Time: 07/28/19 [id number] I personally evaluated the patient and discussed the management with Dr. Kwok I agree with the History, Examination, Assessment and Plan documented above with any addition or exceptions noted below. Patient resting comfortably NAD. Patient with significant PMHX ischemic cardiomyopathy with decreased EF had AICD recently placed with lead dislodgment and she is NPO for anticipated procedure today.
[2019-07-28] MEDS ORDERED: SUMAtriptan Succinate 50 MG TAB PO PRN (06:57)
[2019-07-28] MEDS: Carvedilol 6.25 MG TAB PO SCH ×2 (07:17→18:37)
[2019-07-28] MEDS ORDERED: Semaglutide [Ozempic] 0.5 MG SC SCH (09:00)
[2019-07-28] MEDS ORDERED: Amlodipine 10 MG TAB PO SCH (09:00)
[2019-07-28] MEDS ORDERED: TICAGRELOR 90 MG TABLET PO SCH (09:00)
[2019-07-28] MEDS: Bumetanide 1 MG TAB PO SCH ×2 (09:25→18:37)
[2019-07-28] MEDS: HumaLOG 300 UNITS/3 ML VIAL SC SCH ×3 (09:25→18:36)
[2019-07-28] MEDS: Spironolactone 25 MG TAB PO SCH ×2 (09:26→18:37)
[2019-07-28] MEDS: Atorvastatin Calcium 40 MG TAB PO SCH (09:27)
[2019-07-28] MEDS: Aspirin 81 mg Enteric Coated Tablet PO SCH (09:27)
[2019-07-28] MEDS: Furosemide 40 MG TAB PO SCH ×2 (09:27→21:01)
[2019-07-28] MEDS: Ezetimibe 10 MG TAB PO SCH (09:27)
[2019-07-28] MEDS: Acetaminophen 325 MG TAB PO PRN (10:24)
[2019-07-28] MEDS ORDERED: Iopamidol 370 76% 50 ML VIAL FS ONE (10:56)
[2019-07-28] MEDS: TICAGRELOR 90 MG TABLET PO SCH ×2 (12:28→21:01)
[2019-07-28] MEDS ORDERED: Lidocaine 1% (PF) 30 ML VIAL ONE (14:35)
[2019-07-28] MEDS ORDERED: Fentanyl 100 MCG/2 ML VIAL ONE ×2 (16:34→16:58)
[2019-07-28] MEDS ORDERED: Midazolam HCl 2 mg/2 ml Vial ONE (16:34)
[2019-07-28] MEDS ORDERED: Acetaminophen/Codeine 30-300mg Tablet PO PRN ×2 (18:00)
[2019-07-28] MEDS: Insulin Glargine 45 UNITS in Pre-Filled Syringe 1 EACH SC SCH ×2 (18:22→21:01)
[2019-07-28] MEDS: Sacubitril 49 MG/Valsartan 51 MG TABLET PO SCH (21:01)
--- NOTE | 2019-07-29 00:49 | CON ---
DATE OF CONSULTATION: 07/28/2019 ADDITIONAL REFERRING PHYSICIAN: Bharat Sumner MD HISTORY OF PRESENT ILLNESS: I am seeing Ms. Hayes at our [facility] as an electrophysiology fashion consultant regarding ICD malfunction. Her problems are: 1. Status post single-chamber [employer] ICD implant on 07/25/2019, as a prophylactic device for sudden cardiac . 2. History of chronic systolic congestive heart failure and ischemic cardiomyopathy with multiple myocardial infarctions and coronary interventions in the past. a. Reduced left ventricular ejection fraction in the 20% to 25% on echo November 09, 2018, moderate MR, severe TR. b. Drug-eluting stent placement in November 2018 and February 22, 2019. 3. Intermittent bundle branch block, now resolved. 4. Diabetes, hypertension, hypercholesteremia. ALLERGIES: NONE. MEDICATIONS: At home included: 1. Sertraline. 2. Sumatriptan. 3. Atorvastatin. 4. Isosorbide mononitrate. 5. Zetia. 6. Ranexa. 7. Spironolactone. 8. Brilinta. 9. Ozempic. 10. Carvedilol. 11. Entresto. 12. Bumex. 13. Humalog. 14. Amlodipine. 15. Furosemide. 16. Tylenol. 17. Insulin glargine. 18. Nitroglycerin. 19. Aspirin. SUBJECTIVE: Ms. Hayes is here with symptoms of atypical chest discomfort, possible diaphragmatic stimulation from the ICD pacing lead is noted. She has not passed out. The ICD did not fire. She came to the ER and found to have her ICD lead retracted from the right ventricle to the superior vena cava. She was subsequently hospitalized. Her ICD was disabled and I was consulted for further management. Currently, she denies PND, orthopnea, or lower extremity edema. No fever, chills, or cough. Rest of 12-point system otherwise unremarkable. PAST MEDICAL HISTORY: As above. SOCIAL HISTORY: The patient denies smoking, EtOH, or drug abuse. FAMILY HISTORY: Noncontributory. OBJECTIVE DATA: VITAL SIGNS: Blood pressure is 106/52, heart rate 70, respiratory rate is 16, temperature 98 degrees Fahrenheit. GENERAL: Reveals an alert and oriented obese woman, in no apparent distress. NECK: Supple. Jugular veins not distended. CHEST: Coarse without crackles. HEART: Sounds are regular to rate and rhythm. No murmur or gallop. ABDOMEN: Benign. Bowel sounds positive. EXTREMITIES: Lower extremity without edema, clubbing, or cyanosis. Left precordial ICD insertion site is without major reaction. LABORATORY DATA: White cell count is 12.9, hemoglobin 12.7, platelet count is 259. Sodium 137, potassium 3.6, BUN is 21, creatinine is 1.18. Cardiac enzymes, troponins 0.02, 0.199, and 0.172. Chest x-ray reviewed revealing retracted isolated SVC and no pneumothorax. ASSESSMENT AND PLAN: Ms. Hayes is a 48-year-old woman with history of chronic systolic congestive heart failure with ischemic cardiomyopathy, who underwent prophylactic ICD placement on 07/25/2019. She developed diaphoretic stimulation likely due to the retracted ICD into the SVC via diaphragmatic nerve stimulation is possible. Reason for the retraction is unclear. Possible syndrome, which cannot be ruled out. I discussed with the lady about treatment plans, repositioning the RV lead is the best option. Also plan to place antibiotic pouch, which may further help to anchor the device down to the breast. As recent implant of the RV lead, I think reusing the lead is the best option. Risks and benefits detailed. She understands and willing to proceed. We will schedule for today. Thank you again for letting me to participate in the care of this patient. Job ID: [id number]
--- NOTE | 2019-07-29 05:26 | PDOC.FM ---
- Subjective Subjective: Patient doing well. Reports that the procedure went well yesterday. Denies any chest pain or palpitations, just chest wall soreness around the incision. - Objective Vital Signs & Weight: Vital Signs (12 hours) Temp Pulse Resp BP Pulse Ox 07/29/19 04:06 97.4 F L 85 116/62 96 07/28/19 23:28 88 18 118/62 96 07/28/19 20:03 98 F 80 16 99/55 L 93 L 07/28/19 17:46 98.0 F 80 20 117/59 L 95 Weight Weight 114.85 kg I&O: 07/27/19 07/28/19 07/29/19 06:59 06:59 06:59 Intake Total 1970 960 Output Total 2200 1300 Balance -230 -340 Result Diagrams: 07/27/19 00:22 07/27/19 00:22 EKG Reviewed by me: Yes (sinus 80s, 1st degree) Phys Exam - Physical Examination Constitutional: NAD HEENT: moist MMs, sclera anicteric Neck: no nodes, no JVD Respiratory: no wheezing, clear to auscultation bilateral Cardiovascular: RRR, no significant murmur incision on L chest wall c/d/i Gastrointestinal: soft, non-tender Musculoskeletal: no edema, pulses present Neurological: non-focal, moves all 4 limbs Lymphatic: no nodes Psychiatric: normal affect, A&O x 3 Skin: no rash, normal turgor Dx/Plan (1) Pacemaker complications Code(s): T82.9XXA - UNSP COMP OF CARDIAC AND VASCULAR PROSTH DEV/GRFT, INIT Status: Acute (2) Chronic systolic (congestive) heart failure Code(s): I50.22 - CHRONIC SYSTOLIC (CONGESTIVE) HEART FAILURE Status: Chronic (3) Elevated troponin Code(s): R79.89 - OTHER SPECIFIED ABNORMAL FINDINGS OF BLOOD CHEMISTRY Status : Acute (4) CAD (coronary artery disease) Code(s): I25.10 - ATHSCL HEART DISEASE OF [place] CORONARY ARTERY W/O ANG PCTRS Status: Chronic Qualifiers: Coronary Disease-Associated Artery/Lesion type: [place] artery Associated angina: with unstable angina (5) DM type 2 (diabetes mellitus, type 2) Status: Chronic Qualifiers: Diabetes mellitus 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 Joyce last Sunday - Interrogated pacemaker in ED and showed undersensing - [employer] rep turned off pacemaker after admission - Cardiology consulted, Dr. Sumner, contacted Dr. Joyce for pacemaker lead repositioning - RV lead repositioned successfully 07/28 - sinus on telemetry overnight - will likely be d/c today on keflex #Elevated Troponin - Expected with recent placement and current firing - Trended down - Re-evaluate if active chest pain develops #HTN -continue home meds #DM2 -continue home meds -adjusted lantus to 47u BID based on ISS requirements #HLD -continue home meds #HfrEF -continue home meds PCP: Dr. Austin Diet: HH DVT ppx: SCDs CODE STATUS: FULL CODE Disposition: Stable, plan for likely d/c today with keflex script and f/u with Dr. Joyce outpatient Addendum - Attending - Attending Attestation Date/Time: 07/29/19 2731 I personally evaluated the patient and discussed the management with Dr. Kwok I agree with the History, Examination, Assessment and Plan documented above with any addition or exceptions noted below. Patient pending D/C aware she needs to complete second part of sleep study with titration CPAP.
[2019-07-29] MEDS ORDERED: Insulin Glargine 47 UNITS in Pre-Filled Syringe 1 EACH SC SCH (09:00)
[2019-07-29] MEDS ORDERED: Amlodipine 5 MG TAB PO SCH (09:00)
[2019-07-29] MEDS: Bumetanide 1 MG TAB PO SCH (09:29)
[2019-07-29] MEDS: Aspirin 81 mg Enteric Coated Tablet PO SCH (09:30)
[2019-07-29] MEDS: Atorvastatin Calcium 40 MG TAB PO SCH (09:30)
[2019-07-29] MEDS: Sacubitril 49 MG/Valsartan 51 MG TABLET PO SCH (09:31)
[2019-07-29] MEDS: Furosemide 40 MG TAB PO SCH (09:31)
[2019-07-29] MEDS: Carvedilol 6.25 MG TAB PO SCH (09:32)
[2019-07-29] MEDS: Spironolactone 25 MG TAB PO SCH (09:33)
[2019-07-29] MEDS: Ezetimibe 10 MG TAB PO SCH (09:34)
[2019-07-29] MEDS: TICAGRELOR 90 MG TABLET PO SCH (09:34)
[2019-07-29] MEDS: HumaLOG 300 UNITS/3 ML VIAL SC SCH ×2 (09:42→13:12)
[2019-07-29] MEDS ORDERED: Cephalexin 250 MG CAP PO SCH (12:00)
[2019-07-29 12:09] VITALS: BP 119/61; TEMP 98.5
--- NOTE | 2019-08-01 01:27 | DIS ---
DATE OF ADMISSION: 07/27/2019 DATE OF DISCHARGE: 07/29/2019 ADMITTING RESIDENT: Jer Fermin MD. ADMITTING ATTENDING: Prasanna Spears MD. DISCHARGE RESIDENT: Angela Kwok MD. DISCHARGE ATTENDING: Juan Luis Edmond MD CONSULTATIONS: 1. Cardiology (Dr. Sumner). 2. Electrophysiology (Dr. Joyce). 3. Cardiac rehab. 4. Case Management. PROCEDURES: RV lead repositioning by Dr. Joyce. IMAGING: Chest x-ray: Interval placement of left subclavian AICD device. The tip of the ICD lead overlies the proximal SVC. Correlation of proper positioning is recommended. PRIMARY DIAGNOSES: Pacemaker complications, Twiddler's syndrome, elevated troponin. SECONDARY DIAGNOSES: 1. Hypertension. 2. Type 2 diabetes. 3. Hyperlipidemia. 4. Reduced ejection fraction, heart failure. DISCHARGE MEDICATIONS: 1. Amlodipine 5 mg p.o. daily. 2. Acetaminophen 650 mg p.o. q.4 hours p.r.n. 3. Aspirin 81 mg p.o. daily. 4. Atorvastatin 80 mg p.o. daily. 5. Bumex 1 mg p.o. b.i.d. 6. Carvedilol 12.5 mg p.o. b.i.d. 7. Cephalexin 500 mg p.o. q.6 hours x28 caps. 8. Zetia 10 mg p.o. daily. 9. Furosemide 40 mg p.o. b.i.d. 10. Humalog 15 units subcu t.i.d. with meals. 11. Lantus 45 units subcu b.i.d. 12. Isosorbide mononitrate 50 mg p.o. daily. 13. Nitrostat 0.4 mg p.o. q.5 minutes p.r.n. 14. Ranexa 1000 mg p.o. b.i.d. 15. Entresto 1 tab 49 mg-51 mg tablet p.o. b.i.d. 16. Ozempic 0.5 mg subcu q.7 days. 17. Zoloft 150 mg p.o. daily. 18. Aldactone 25 mg p.o. b.i.d. 19. Imitrex 50 mg p.o. p.r.n. for migraine headaches. 20. Brilinta 90 mg p.o. b.i.d. DISCONTINUED MEDICATIONS: 1. Amlodipine 10 mg p.o. daily. 2. Cefazolin IV. 3. Entresto 24 mg-26 mg. HISTORY OF PRESENT ILLNESS/HOSPITAL COURSE: The patient is a 48-year-old female with a past medical history of type 2 diabetes, hypertension and reduced ejection fraction, heart failure that presented to the ED for feeling symptoms of a small shock in her chest. She had a pacemaker placed by Dr. Joyce on 07/25. On investigation by the [employer] [facility] for interrogation of the pacemaker, it showed undersensing and missed placement of the pacemaker lead on the phrenic nerve. Dr. Sumner was consulted and changes were made to both her amlodipine and her Entresto medications by Cardiology with plans to decrease her amlodipine and increase her Entresto dosing. Dr. Joyce evaluated the patient and performed the procedure, see above. The patient was monitored overnight after the procedure and was found to be in stable condition the morning after the procedure. She was instructed to follow up with both Dr. Joyce and cardiac rate rehab outpatient. DISPOSITION: Stable. DISCHARGE INSTRUCTIONS: 1. Location: Home. 2. Diet: Heart healthy, carb conscious. 3. Activity: As tolerated. 4. Follow up with Dr. Austin in 7 days, with Dr. Joyce in 14 days, and with cardiac rehab within 1 week. Job ID: [id number]
== END 2019-07-29 13:36 | disposition home or self-care (01) ==
LOC: ERS 23:54 → 2SW 07-27 04:26
PROVIDERS: ADMIT Family Medicine; ATTEND Family Medicine
PROC: 0JW Subcutaneous Tissue and Fascia, Revision (ICD-10-PCS; principal; 2019-07-28)
DX: T82.120A Displacement of cardiac electrode, initial encounter (principal); I25.5 Ischemic cardiomyopathy; T82.897A Other specified complication of cardiac prosthetic devices, implants and grafts, initial encounter; E78.5 Hyperlipidemia, unspecified; I11.0 Hypertensive heart disease with heart failure; I50.23 Acute on chronic systolic (congestive) heart failure; I25.2 Old myocardial infarction; I25.110 Atherosclerotic heart disease of native coronary artery with unstable angina pectoris; E11.40 Type 2 diabetes mellitus with diabetic neuropathy, unspecified; F41.9 Anxiety disorder, unspecified; F32.9 Major depressive disorder, single episode, unspecified; G47.30 Sleep apnea, unspecified; Z79.02 Long term (current) use of antithrombotics/antiplatelets; Z79.899 Other long term (current) drug therapy; Z79.4 Long term (current) use of insulin; Z95.5 Presence of coronary angioplasty implant and graft
CPT/HCPCS: 33223; 36005; 36415; 36416; 71045; 75820; 80053; 82553; 83690; 84484; 85025; 93005; 93798; 96374; 96375; 96376; 99152; 99153; G0378; J0690; J1815; J2001; J2250; J3010; J3360; J3490; Q9967

== ENCOUNTER 2019-09-20 20:51 | Observation (INO) | payer BC ==
[~2019-09-20 20:51] MED LIST changes: +Iopamidol 370 76% 100 ML VIAL ONE; -Iopamidol-370 76% 500 ML 1 ML ONE
[2019-09-20 21:38] LABS: #Basophils 0.1 thou/uL (0.0-0.2); #Eosinphils 0.4 thou/uL (0.0-0.7); #Lymphocytes 2.5 thou/uL (1.20-3.40); #Monocytes 0.4 thou/uL (0.11-0.59); #Neutrophils 4.7 thou/uL (1.40-6.50); %Basophils 0.8 % (0.0-1.0); %Eosinophils 4.7 % (0.0-10.0); %Lymphocytes 31.7 % (21.0-51.0); %Monocytes 4.8 % (0.0-10.0); %Neutrophils 58.1 % (42.0-75.0); Hemoglobin 12.1 g/dL (12.0-16.0); Mean Corpuscular HGB CONC 33.5 g/dL (32.0-36.0); Mean Corpuscular Hemoglobin 24.9 pg (27.0-31.0); Mean Corpuscular Volume 74.5 fL (78.0-98.0); Mean Platelet Volume 9.4 fL (7.4-10.4); Platelet Count 195 thou/uL (130-400); RBC Distribution Width 14.3 % (11.5-14.5); Red Blood Cell (RBC) Count 4.84 mill/uL (4.20-5.40)
[2019-09-20 21:57] LABS: ALT (SGPT) 12 U/L (8-55); AST (SGOT) 12 U/L (5-34); Albumin 3.2 g/dL (3.5-5.0); Alkaline Phosphatase 109 U/L (40-110); Anion Gap 16 mmol/L (10-20); BUN (Urea Nitrogen) 16 mg/dL (7.0-18.7); Bilirubin, Total 0.3 mg/dL (0.2-1.2); CK (CPK) 56 U/L (29-168); Calc. Creatinine Clearance 0 mL/min (70-130); Calcium 8.9 mg/dL (7.8-10.44); Carbon Dioxide 17 mmol/L (22-29); Chloride 106 mmol/L (98-107); Estimated GFR-MDRD 50; Globulin 3.7 g/dL (2.4-3.5); Glucose 444 mg/dL (70-105); Potassium 3.9 mmol/L (3.5-5.1); Protein, Total 6.9 g/dL (6.0-8.3); Sodium 135 mmol/L (136-145)
[2019-09-20 22:08] LABS: Bacteria/HPF None Seen HPF (None Seen); Bilirubin Negative (Negative); Blood, Urine 1+ (Negative); Clarity Clear (Clear); Glucose, Urine (Dipstick) Greater than 1000 mg/dL (Negative); Leukocyte Negative Leu/uL (Negative); Nitrite Negative (Negative); Protein, Urine (Dipstick) 300 mg/dL (Neg-Trace); RBC/HPF 0-3 HPF (0-3); Squamous Epithelial None Seen HPF (0-3); Urobilinogen Normal mg/dL (Less than 2); WBC/HPF 0-3 HPF (0-3)
--- NOTE | 2019-09-20 22:19 | CT ---
CT ANGIOGRAM CHEST WITH CONTRAST: 09/20/19 HISTORY: Shortness of breath. COMPARISON: CT angiogram chest 07/01/19. FINDINGS: CT angiogram of the chest performed after the intravenous administration of contrast. 3D rendering pr ovided. No proximal segmental pulmonary arterial filling defect. Upper abdomen is unremarkable. There are new prevascular AP window and pretracheal lymph nodes which are slightly enlarged relative to the comparison exam. Hypodensity of the right lobe of the thyroid. Mild interstitial and alveolar pulmonary edema. Greatest in the lower lobes with interstitial thicken ing. Mild fullness of the peribronchial vascular interstitium. Trace effusions. Sternum and manubrium are intact. Thoracic spine is intact. No acute displaced rib f racture. IMPRESSION: 1. No proximal segmental pulmonary arterial filling defect. 2. Moderate pulmonary edema. 3. Likely reactive mediastinal lymph nodes. 4. Small hypodensity right lobe of the thyroid for which nonemergent follow-up ultrasound recomm ended. POS: HOME
[2019-09-20] MEDS ORDERED: Furosemide 40 MG/4 ML VIAL ONE (22:28)
[2019-09-20] MEDS ORDERED: Nitroglycerin 2% Ointment 1 INCH/1 GM Packet ONE (22:28)
--- NOTE | 2019-09-20 23:37 | RAD ---
CHEST ONE VIEW: 09/20/19 HISTORY: Chest pain. COMPARISON: CTA same day. FINDINGS: Moderate pulmonary edema. No pneumothorax. No acute osseous abnormality. IMPRESSION: Moderate pulmonary edema. POS: HOME
[2019-09-20] MEDS ORDERED: Ondansetron PF 4 MG/2 ML Vial IVP PRN (23:48)
[2019-09-20] MEDS ORDERED: Ondansetron ODT 4 MG TAB SL PRN (23:48)
[2019-09-20] MEDS ORDERED: Acetaminophen 650 MG Suppository PR PRN (23:57)
[2019-09-20] MEDS ORDERED: HumaLOG 300 UNITS/3 ML VIAL SC PRN (23:57)
[2019-09-20] MEDS ORDERED: Dextrose 50% Abboject 50 ML SYRINGE SLOW IVP PRN (23:57)
[2019-09-20] MEDS ORDERED: Senokot S 8.6-50 MG TAB PO PRN (23:57)
[2019-09-20] MEDS ORDERED: Acetaminophen 325 MG TAB PO PRN (23:57)
[2019-09-20] MEDS ORDERED: Dextrose 5% in Water 1,000 ML IV PRN (23:57)
--- NOTE | 2019-09-21 00:03 | PDOC.FPRHP ---
- History of Present Illness Chief Complaint: Chest tightness History of Present Illness: Pt is a 48 yo F with pmh of CHF, HLD, DMII, CKD, Depression, Gastroparesis, and Migraine who presents with leg cramping and chest tightness and leg cramping. She says it started 4 days ago with leg cramping that radiated up to his chest and he felt tightness as well. She says she felt some electrical shocks in her AICD as well. She says the pain comes and goes, but over the last daily it has been more frequently and stronger. She said she also noticed wheezing that she has when she has CHF exacerbations. She said she took a shower, and the wheezing improved somewhat but did not totally resolve. Shoe Treer: Giovani ED Course: In the ED, she was given 40 of IV Lasix and Nitro paste. BNP was 479, CT showed pulmonary congestion. Trop: 0.024. MCV was 74 and UA significant for glucose. - Allergies/Adverse Reactions Allergies Allergy/AdvReac Type Severity Reaction Status Date / Time No Known Drug Allergies Allergy Verified 08/24/19 09:20 - Home Medications Medication Instructions Recorded Confirmed Type Sertraline HCl [Zoloft] 150 mg PO DAILY 05/05/18 09/21/19 History Isosorbide Mononitrate [Imdur] 60 mg PO DAILY 11/08/18 09/21/19 History SUMAtriptan Succinate [Imitrex] 50 mg PO PRN PRN 11/08/18 09/21/19 History Ranolazine [Ranexa] 1,000 mg PO BID #60 tab 01/07/19 09/21/19 Rx Spironolactone [Aldactone] 25 mg PO BID-WM #60 tab 03/03/19 09/21/19 Rx Ticagrelor [Brilinta] 90 mg PO BID #60 tab 03/03/19 09/21/19 Rx Carvedilol [Coreg] 3.125 mg PO BID-WM 03/27/19 09/21/19 History Bumetanide [Bumex] 1 mg PO BID-AC 04/26/19 09/21/19 History HumaLOG [HumaLOG Vial] 15 unit SC TID-WM 05/12/19 09/21/19 History Furosemide 40 mg PO BID 07/01/19 09/21/19 History Nitroglycerin [Nitrostat] 0.4 mg PO Q5MIN PRN #10 tab 07/02/19 09/21/19 Rx Aspirin [Ecotrin Low Strength] 81 mg PO DAILY 07/27/19 09/21/19 History Sacubitril/Valsartan 49/51 1 tab PO BID #60 tab 07/29/19 09/21/19 Rx [Entresto 49 mg-51 mg Tablet] Insulin Glargine [Lantus Vial] 35 units SC BID 09/21/19 09/21/19 History traZODone HCl [Trazodone HCl] 150 mg PO DAILY 09/21/19 09/21/19 History - History PMHx: CHF, HLD, DMII, CKD, depression, Gastroparesis, Migraines PSHx: Parotid tumor removal, AICD FHx: Father: DMII with gangrene ( 46), Mother: dM, CHF, STrok, CAD Social: No tobacco, alcohol, or recreational drugs. 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 - Review of Systems General: denies: fever/chills Eyes: denies: vision changes ENT: denies: nasal congestion, rhinorrhea Respiratory: reports: shortness of breath. denies: cough, congestion Cardiovascular: denies: chest pain, palpitation, edema Gastrointestinal: denies: nausea, vomiting, diarrhea, constipation, abdominal pain Genitourinary: denies: dysuria Skin: denies: rashes, lesions Musculoskeletal: reports: pain. denies: tenderness Neurological: reports: numbness, other (headache). denies: weakness Psychological: reports: depression - Vital signs BP: 160/89 HR: 98 RR: 20 Tmax: 98.2 Pox: 97% on RA Wt: 118 kg - Physical Exam Constitutional: NAD HEENT: normocephalic and atraumatic, PERRLA, EOMI, conjunctiva clear, no scleral icterus, normal nasal mucosa, MMM, oropharynx clear Neck: supple, trachea midline Heart: RRR, normal S1/S2, no murmurs/rubs/gallops -Heart: 1+ edema Lungs: CTAB, no respiratory distress Abdomen: soft, non-tender, bowel sounds present Musculoskeletal: normal structure, normal tone, ROM grossly normal Neurological: no focal deficit, CN II-XII intact, normal sensation Skin: no rash/lesions, good turgor Heme/Lymphatic: no unusual bruising or bleeding, no purpura, no petechia FMR H&P: Results - Labs Result Diagrams: 09/20/19 21:26 09/21/19 03:14 Lab results: WBC 8.0 thou/uL (4.8-10.8) 09/20/19 21: Hgb 12.1 g/dL (12.0-16.0) 09/20/19 21: Hct 36.0 % (36.0-47.0) 09/20/19 21: MCV 74.5 fL (78.0-98.0) L 09/20/19 21: Plt Count 195 thou/uL (130-400) 09/20/19 21: Neutrophils % 58.1 % (42.0-75.0) 09/20/19 21:26 Sodium 135 mmol/L (136-145) L 09/20/19 21: Potassium 3.9 mmol/L (3.5-5.1) 09/20/19 21: Chloride 106 mmol/L (98-107) 09/20/19 21: Carbon Dioxide 17 mmol/L (22-29) L 09/20/19 21: BUN 16 mg/dL (7.0-18.7) 09/20/19 21: Creatinine 1.15 mg/dL (0.6-1.1) H 09/20/19 21: Glucose 444 mg/dL (70-105) H 09/20/19 21: Calcium 8.9 mg/dL (7.8-10.44) 09/20/19 21: Total Bilirubin 0.3 mg/dL (0.2-1.2) 09/20/19 21: AST 12 U/L (5-34) 09/20/19 21: ALT 12 U/L (8-55) 09/20/19 21: Alkaline Phosphatase 109 U/L (40-110) 09/20/19 21: Creatine Kinase 56 U/L (29-168) 09/20/19 21: B-Natriuretic Peptide 479.9 pg/mL (0-100) H 09/20/19 21: Serum Total Protein 6.9 g/dL (6.0-8.3) 09/20/19 21:26 Albumin 3.2 g/dL (3.5-5.0) L 09/20/19 21:26 Urine Ketones Negative mg/dL (Negative) 09/20/19 21:50 Urine Blood 1+ (Negative) A 09/20/19 21:50 Urine Nitrite Negative (Negative) 09/20/19 21:50 Ur Leukocyte Esterase Negative Dc/uL (Negative) 09/20/19 21:50 Urine RBC 0-3 HPF (0-3) 09/20/19 21:50 Urine WBC 0-3 HPF (0-3) 09/20/19 21:50 Ur Squamous Epith Cells None Seen HPF (0-3) 09/20/19 21:50 Urine Bacteria None Seen HPF (None Seen) 09/20/19 21:50 FMR H&P: A/P - Problem List (1) Chronic systolic (congestive) heart failure Status: Chronic Code(s): I50.22 - CHRONIC SYSTOLIC (CONGESTIVE) HEART FAILURE (2) CAD (coronary artery disease) Status: Chronic Code(s): I25.10 - ATHSCL HEART DISEASE OF [place] CORONARY ARTERY W/O ANG PCTRS Qualifiers: Coronary Disease-Associated Artery/Lesion type: [place] artery Associated angina: with unstable angina (3) DM type 2 (diabetes mellitus, type 2) Status: Chronic Qualifiers: 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 1. CHF Exacerbation BNP: 479.9 * Continue home medications * Strict I&Os * Daily weights * In the ED, she received 40 mg of IV Lasix * ECHO (01/20): EF 25-30% * AICD in placed, interrogated and no abnormalities noted * Lasix 40 IV daily 2. DMII UA: + glucose, Bs * Aggressive SSI * ACHS BG checks * Hypoglycemia protocol * Continue home medications & adjust as needed 3. Iron Deficiency Anemia MCV: 74, H&H wnl * Will continue to monitor * Iron Studies preformed 02/20- iron deficiency anemia 4. CKD Cre: 1.15 * Baseline 0.9 * Will continue to monitor 5. Depression Continue home medication 6. HLD Continue home medication 7. Migraine Continue home medication as needed 8. Thyroid Nodule Found on CT Scan * Needs outpatient with US Code Status: Full Diet: HHLSo Activity: Ad Sylwia DVT PPx: Lovenox GI PPx: Pepcid IVF: SL PCP: Geovanna Dispo: Tele inpt, will trend trops and treat CHF exacerbation. LOS < 48H. FMR H&P: Upper Level - Pertinent history Ms [place] is a 48yo female with pmh of CAD, hx of [place], HTN, HLD, IDDMII, HFrEF EF 25-30% with AICD who presents with SOB, chest pain and exercise intolerance over the last 4 days. Reports recently being hospitalized for 1 wk in [place] for CHF exacerbation on September 07. Was tested for COVID-19 and it was negative. Endorses increased edema. Chest pain happens at rest and with exertion, did not change with Nitropatch. Describes it as a tightness. No associated n/v, diaphoresis. Says this feels similar to her CHF exacerbations in the past. Also complains of b/l leg pain that she recently saw Dr Austin for, her Atorvastatin was stopped and she was started on Tramadol. Follows with Dr Gaines for CHF. - Pertinent findings PE: Vital signs reviewed, tachycardic. General: NAD Pulm: CTA b/l. No resp distress CV: RRR, No murmurs Extremities: 1+ edema. 2+ dorsalis pedis A/P: HFrEF w/ AICD in acute exacerbation - Not requiring supplemental O2. BNP 480, CTA with moderate pulm edema. - EF 25-30% 02/24/19. Received 40mg IV Lasix in ED. Strict I&Os. IV Lasix ordered for AM, can adjust dose according to urine output. Daily wts. - Continue home meds. Atypical chest pain -Heart Score: 4. Initial Trop: 0.024. EKG with no ST segment changes or signs of ischemia. CTA: no PE, moderate pulm edema. Nitropatch applied in ED. Continue to trend trops. Hold Atorvastatin as it was recently d/lakisha by PCP. Hypodensity R lobe of thyroid: Follow up US recommended. AICD -Recently had lead displacement that was corrected DM. Resume Insulin. Accuchecks ACHS. - Plan Date/Time: 09/21/19 0003 I, Alysa Abernathy, have evaluated this patient and agree with findings/plan as outlined by internal communications specialist resident. Pertinent changes/additions are listed here. Addendum - Attending - Attending Attestation Date/Time: 09/25/19 0838 I personally evaluated the patient and discussed the management with the team on day of admission. I agree with the History, Examination, Assessment and Plan documented above with any addition or exceptions noted below.
[2019-09-21 01:20] LABS: Troponin I 0.043 ng/mL (< 0.028)
[2019-09-21 04:03] VITALS: BP 171/98
[2019-09-21 04:09] LABS: ALT (SGPT) 11 U/L (8-55); AST (SGOT) 10 U/L (5-34); Albumin 3.1 g/dL (3.5-5.0); Alkaline Phosphatase 94 U/L (40-110); Anion Gap 15 mmol/L (10-20); BUN (Urea Nitrogen) 18 mg/dL (7.0-18.7); Bilirubin, Total 0.3 mg/dL (0.2-1.2); Calc. Creatinine Clearance 113 mL/min (70-130); Calcium 8.9 mg/dL (7.8-10.44); Carbon Dioxide 20 mmol/L (22-29); Chloride 106 mmol/L (98-107); Estimated GFR-MDRD 52; Globulin 3.4 g/dL (2.4-3.5); Glucose 363 mg/dL (70-105); Potassium 3.6 mmol/L (3.5-5.1); Protein, Total 6.5 g/dL (6.0-8.3); Sodium 137 mmol/L (136-145)
[2019-09-21] MEDS ORDERED: SUMAtriptan Succinate 50 MG TAB PO PRN (04:10)
[2019-09-21] MEDS ORDERED: Nitroglycerin 0.4 MG TAB (25 Tab Bottle) SL PRN (04:10)
[2019-09-21 04:18] LABS: Troponin I 0.033 ng/mL (< 0.028)
[2019-09-21 05:15] VITALS: BMI 43.0
--- NOTE | 2019-09-21 06:52 | PDOC.FM ---
- Subjective Subjective: Ms. [place] denies any difficulty breathing or SOB. She reports continued chest pain but says it has improved since admission. Pain is reproducible with palpation. She also notes her feet are cramping. - Objective Vital Signs & Weight: Vital Signs (12 hours) Temp Pulse Resp BP Pulse Ox 09/21/19 04:00 97.5 F L 90 20 171/98 H 94 L 09/21/19 00:18 97 Weight Weight 117.14 kg Most Recent Monitor Data Heart Rate from ECG 91 NIBP 127/64 NIBP BP-Mean 85 Respiration from ECG 23 SpO2 98 I&O: 09/19/19 09/20/19 09/21/19 06:59 06:59 06:59 Intake Total 50 Output Total 800 Balance -750 Result Diagrams: 09/20/19 21:26 09/21/19 03:14 Phys Exam - Physical Examination Constitutional: NAD Respiratory: clear to auscultation bilateral (exam limited due to body habitus) Cardiovascular: RRR, no significant murmur Gastrointestinal: soft, non-tender, positive bowel sounds trace edema BLE, patient says it has decreased Neurological: non-focal Psychiatric: normal affect Dx/Plan - Plan Plan: 48 yo F with pmh of CHF, HLD, DMII, CKD, Depression, Gastroparesis, and Migraine who presents with leg cramping and chest tightness and leg cramping. HFrEF w/ AICD in acute exacerbation * CTA with mod pulm edema, BNP 480, no O2 requirement * Strict I&Os, Daily weights * s/p 40 mg of IV Lasix in ED * ECHO (01/20): EF 25-30% * AICD in placed, interrogated and no abnormalities noted * Lasix 40 IV daily * continue home spironolactone, bumetanide, coreg, asa, entresto Atypical chest pain - Heart Score: 4. Trop: 0.024->.033. - EKG with no ST segment changes or signs of ischemia. Nitro available. Chronic angina - Continue home nitro, ranexa, isosorbide mononitrate CAD s/p 8 stents - Atorvastatin was recently d/lakisha by PCP. - continue home brilinta IDDMII UA: + glucose, Bs * Aggressive SSI, Hypoglycemia protocol * ACHS BG checks * Restart home insulin Iron Deficiency Anemia MCV: 74, H&H wnl * Will continue to monitor * Iron Studies done 02/20 CKD Cre: 1.15 * Baseline 0.9 * Will continue to monitor Depression Continue home trazodone HLD Continue home medication Migraine Continue home medication as needed Hypodensity R lobe of thyroid - Follow up US recommended. Code Status: Full Diet: HHLSo DVT PPx: Lovenox IVF: SL PCP: Geovanna Dispo: Continue diuresis, home meds to restart this am, will monitor symptoms and chest pain symptoms. Addendum - Attending - Attending Attestation Date/Time: 09/21/19 1013 I personally evaluated the patient and discussed the management with Dr. Jackson. I agree with the History, Examination, Assessment and Plan documented above with any addition or exceptions noted below. Patient currently feeling well. Has been off heart failure medications. Restarting and seeing how she does. She is continuing to have some chest pain even after Nitro. Will try some Nitro paste and recheck trops. If continues, cardiology consult given her extensive CAD history. BP control and monitor fluid status. Will try to track down why patient is supposedly on both Bumex and Lasix.
[2019-09-21] MEDS ORDERED: Bumetanide 1 MG TAB PO SCH (07:30)
[2019-09-21] MEDS ORDERED: Carvedilol 3.125 MG TAB PO SCH (08:00)
[2019-09-21] MEDS ORDERED: Spironolactone 25 MG TAB PO SCH (08:00)
[2019-09-21] MEDS: HumaLOG 300 UNITS/3 ML VIAL SC SCH ×2 (08:40→12:09)
[2019-09-21] MEDS ORDERED: Insulin Glargine 35 UNITS in Pre-Filled Syringe 1 EACH SC SCH (09:00)
[2019-09-21] MEDS ORDERED: Enoxaparin Sodium 40 MG/0.4 ML SYRINGE SC SCH (09:00)
[2019-09-21] MEDS ORDERED: TICAGRELOR 90 MG TABLET PO SCH (09:00)
[2019-09-21] MEDS ORDERED: Aspirin 81 mg Enteric Coated Tablet PO SCH (09:00)
[2019-09-21] MEDS ORDERED: traZODone HCl 150 MG TAB PO SCH (09:00)
[2019-09-21] MEDS ORDERED: Furosemide 40 MG/4 ML VIAL SLOW IVP SCH (09:00)
[2019-09-21] MEDS ORDERED: Aspirin Chewable 81 MG TAB PO SCH (09:00)
[2019-09-21] MEDS ORDERED: Furosemide 40 MG TAB PO SCH (09:00)
[2019-09-21] MEDS ORDERED: Sacubitril 49 MG/Valsartan 51 MG TABLET PO SCH (09:00)
[2019-09-21] MEDS ORDERED: Famotidine 20 MG TAB PO SCH (09:00)
[2019-09-21 11:07] VITALS: TEMP 97
--- NOTE | 2019-09-21 17:13 | DIS ---
DATE OF ADMISSION: 09/20/2019 DATE OF DISCHARGE: 09/21/2019 RESIDENT: Jazz Jackson DO ADMITTING ATTENDING: Iglesia Geller MD DISCHARGE ATTENDING: Hussain Campo MD CONSULT: None. PROCEDURES: On 09/20/2019, chest thorax CTA showed no proximal segmental pulmonary arterial filling defect. Moderate pulmonary edema. Likely reactive mediastinal lymph nodes. Small hypodensity right lobe of the thyroid for which nonemergent followup ultrasound recommended. PRIMARY DIAGNOSES: 1. Heart failure with reduced ejection fraction exacerbation. 2. Atypical chest pain. SECONDARY DIAGNOSES: 1. Chronic angina. 2. Coronary artery disease, status post eight stents. 3. Insulin-dependent diabetes. 4. Iron-deficiency anemia. 5. Chronic kidney disease. 6. Depression. 7. Hyperlipidemia. 8. Migraine. 9. Hypodensity in the right lobe of the thyroid. DISCHARGE MEDICATIONS: 1. Sertraline 150 mg p.o. daily. 2. Sumatriptan 50 mg p.o. p.r.n. 3. Isosorbide mononitrate 60 mg p.o. daily. 4. Ranexa 1000 mg p.o. b.i.d. 5. Spironolactone 25 mg p.o. b.i.d. 6. Brilinta 90 mg p.o. b.i.d. 7. Carvedilol 3.125 mg p.o. b.i.d. 8. Bumetanide 1 mg p.o. b.i.d. 9. Humalog 15 units subcu t.i.d. 10. Furosemide 40 mg p.o. b.i.d. 11. Nitroglycerin 0.4 mg p.o. q.5 hours p.r.n. 12. Aspirin 81 mg p.o. daily. 13. Entresto 49/51 mg one tab p.o. b.i.d. 14. Trazodone 150 mg p.o. daily. 15. Insulin glargine 35 units subcu b.i.d. HISTORY OF PRESENT ILLNESS: A 48-year-old female, with past medical history with significant coronary artery disease, heart failure, and AICD placement, who presented with chest tightness and wheezing. She was given IV Lasix and nitro paste in the ER. BNP was 479. CT showed pulmonary congestion, as above. Troponins were trended and were nonspecific. There were no EKG changes. Patient's atypical chest pain improved throughout hospitalization and at the time of discharge was completely resolved. She was asymptomatic with no chest pain or shortness of breath. She was also noted to have elevated blood glucose during hospitalization and her home insulin regimen was continued. Patient follows with Dr. Matute in the outpatient setting for her heart failure. She last had an echo done in January 2019 with an ejection fraction of 25% to 30%. Her AICD was interrogated with no abnormalities noted. At the time of discharge, her vital signs were stable. She had no supplemental oxygen requirement. Did discuss combination of bumetanide and Lasix with patient. Patient is unsure when she was put on this combination and chart review shows that she was discharged this on these medications a few months ago. Patient is to follow up with Dr. Matute, her accounts receivable clerk, this week. Also of note, the patient reported that her primary care physician took her off her statin recently. She did have an incidental thyroid nodule found on CT and outpatient ultrasound followup recommended. DISPOSITION: Stable. DISCHARGE INSTRUCTIONS: 1. Location: Home. 2. Diet: Heart healthy. 3. Activity: As tolerated. 4. Follow up with Cardiology, Dr. Matute, within 1 week. Follow up with her primary care physician, Dr. Austin, this week. Job ID: [id number]
--- NOTE | 2019-09-26 15:22 | EKG ---
Test Reason : Blood Pressure : / mmHG Vent. Rate : 101 BPM Atrial Rate : 101 BPM P-R Int : 206 ms QRS Dur : 086 ms QT Int : 372 ms P-R-T Axes : 049 -23 072 degrees QTc Int : 482 ms Sinus tachycardia Possible Left atrial enlargement Septal infarct , age undetermined Abnormal ECG Confirmed by KEI MARQUES DO ([id number]), proposal editor SHEEBA RODRIGUEZ ([id number]) on 09/26/2019 3:21:52 PM Referred By: Confirmed By:KEI MARQUES DO
== END 2019-09-21 15:53 | disposition home or self-care (01) ==
LOC: ERS 20:51 → IMCU/EMU 22:50 → INTOOBSV 22:50
PROVIDERS: ADMIT Emergency Medicine; ATTEND Emergency Medicine
DX: I13.0 Hypertensive heart and chronic kidney disease with heart failure and stage 1 through stage 4 chronic kidney disease, or unspecified chronic kidney disease (principal); E11.22 Type 2 diabetes mellitus with diabetic chronic kidney disease; N18.9 Chronic kidney disease, unspecified; I50.23 Acute on chronic systolic (congestive) heart failure; R07.89 Other chest pain; I25.110 Atherosclerotic heart disease of native coronary artery with unstable angina pectoris; E78.5 Hyperlipidemia, unspecified; F32.9 Major depressive disorder, single episode, unspecified; E11.43 Type 2 diabetes mellitus with diabetic autonomic (poly)neuropathy; K31.84 Gastroparesis; G43.909 Migraine, unspecified, not intractable, without status migrainosus; D50.9 Iron deficiency anemia, unspecified; E04.1 Nontoxic single thyroid nodule; Z79.02 Long term (current) use of antithrombotics/antiplatelets; Z79.4 Long term (current) use of insulin; Z79.82 Long term (current) use of aspirin; Z79.899 Other long term (current) drug therapy; Z95.5 Presence of coronary angioplasty implant and graft; Z95.810 Presence of automatic (implantable) cardiac defibrillator
CPT/HCPCS: 36415; 36416; 51701; 71045; 71275; 80053; 81003; 81015; 82550; 83880; 84484; 85025; 93005; 93010; 96374; J1650; J1815; J1940; Q9967

== ENCOUNTER 2019-10-03 10:35 | Outpatient (CLI) | payer BC ==
--- NOTE | 2019-10-03 14:49 | ULT ---
THYROID ULTRASOUND: 10/03/19 INDICATIONS: History of thyroid nodule. FINDINGS: The right thyroid lobe measures 2.0 x 5.7 x 2 cm. Left thyroid lobe measures 1.8 x 4.2 x 1.2 cm. Thyr oid isthmus measures 0.38 cm. There is a mixed cystic and solid hyperechoic nodule within the mid right thyroid lobe measuring 2.3 x 1.2 x 1.8 cm consistent with a TI-RADS 2 lesion. There is a 1.1 x 0.6 x 0.9 cm mixed cystic and james id nodule in the superior pole of the right thyroid lobe also consistent with a TI-RADS 2 lesion. Sma ll cystic nodule is seen within the superior pole of the left thyroid lobe measuring 3 mm. IMPRESSION: TI-RADS 2 lesions of the right thyroid lobe. Benign appearing cystic lesion of the superior pole of t he left thyroid lobe. POS: GUILLEDI
== END 2019-10-03 10:36 | disposition home or self-care (01) ==
LOC: BICULT 10:35
PROVIDERS: ATTEND Family Medicine
DX: E04.1 Nontoxic single thyroid nodule (principal); E07.89 Other specified disorders of thyroid; I42.9 Cardiomyopathy, unspecified; E78.00 Pure hypercholesterolemia, unspecified
CPT/HCPCS: 36415; 76536; 80053; 80061

== ENCOUNTER 2019-10-16 19:19 | Observation (INO) | payer BC ==
--- NOTE | 2019-10-16 19:52 | RAD ---
Chest AP view INDICATION: Chest pain COMPARISON: September 20, 2019 FINDINGS: Lungs: The lungs are clear Cardiac silhouette: Stable mild cardiomegaly and AICD Pulmonary vasculature: Normal Pleural spaces: No pleural effusion or pneumothorax is demonstrated. Upper abdomen: No abnormality seen. Osseous structures: No acute osseous abnormality. Additional findings: None. IMPRESSION: No acute cardiopulmonary abnormality.
[2019-10-16 19:53] LABS: #Eosinphils 0.4 thou/uL (0.0-0.7); #Monocytes 0.5 thou/uL (0.11-0.59); #Neutrophils 8.9 thou/uL (1.40-6.50); %Basophils 0.3 % (0.0-1.0); %Eosinophils 3.1 % (0.0-10.0); %Lymphocytes 16.6 % (21.0-51.0); Hemoglobin 13.7 g/dL (12.0-16.0); Mean Corpuscular Hemoglobin 24.6 pg (27.0-31.0); Mean Corpuscular Volume 74.5 fL (78.0-98.0); Mean Platelet Volume 9.8 fL (7.4-10.4); Platelet Count 175 thou/uL (130-400); RBC Distribution Width 15.2 % (11.5-14.5); Red Blood Cell (RBC) Count 5.59 mill/uL (4.20-5.40); White Blood Cell (WBC) Count 11.7 thou/uL (4.8-10.8)
[2019-10-16 20:16] LABS: ALT (SGPT) 13 U/L (8-55); AST (SGOT) 18 U/L (5-34); Albumin 3.8 g/dL (3.5-5.0); Alkaline Phosphatase 83 U/L (40-110); Anion Gap 14 mmol/L (10-20); BUN (Urea Nitrogen) 22 mg/dL (7.0-18.7); Bilirubin, Total 0.5 mg/dL (0.2-1.2); Calc. Creatinine Clearance 0 mL/min (70-130); Calcium 9.7 mg/dL (7.8-10.44); Carbon Dioxide 23 mmol/L (22-29); Chloride 104 mmol/L (98-107); Estimated GFR-MDRD 58; Globulin 3.8 g/dL (2.4-3.5); Glucose 80 mg/dL (70-105); Potassium 3.7 mmol/L (3.5-5.1); Protein, Total 7.6 g/dL (6.0-8.3); Sodium 137 mmol/L (136-145)
--- NOTE | 2019-10-16 22:11 | PDOC.FPRHP ---
- History of Present Illness History of Present Illness: 48 y/o F with pmhx of NV, recently discharged from the for CHF exacerbation, presents to the ED after "thinking she passed out to day." she states she may have fallen asleep, but does not remember. She felt very somnolent and confused on what time it was when she woke up. Her daughter came to house and noticed her to not be baseline and called ambulance. Pt c/o LH/woozie feelings. c/o palpitations. Pt was supposed to be seen by legal nurse consultant today but missed her appointment. PT has an AICD and believes she was "shocked," today by it. c/o pressure in her chest worsened with deep breaths. Pain in legs and L arm. Recently went up in dosage of bumex, entresto and rosuvastatin. In Jun 2019 pt had an NV that presented with SOB. in 2017 her symptoms of NV was heart burn and feeling like she needed to belch. ED Course: given ASA and nitro in route to ED via EMS. BNP 158 Mag 2.0 tsh 1.65 Trop 0.018 CXR: no acute cardiopulmonary findings - Allergies/Adverse Reactions Allergies Allergy/AdvReac Type Severity Reaction Status Date / Time No Known Drug Allergies Allergy Verified 08/24/19 09:20 - Home Medications Medication Instructions Recorded Confirmed Type Sertraline HCl [Zoloft] 150 mg PO DAILY 05/05/18 10/17/19 History Isosorbide Mononitrate [Imdur] 60 mg PO DAILY 11/08/18 10/17/19 History SUMAtriptan Succinate [Imitrex] 50 mg PO PRN PRN 11/08/18 10/17/19 History Ranolazine [Ranexa] 1,000 mg PO BID #60 tab 01/07/19 10/17/19 Rx Spironolactone [Aldactone] 25 mg PO BID-WM #60 tab 03/03/19 10/17/19 Rx Ticagrelor [Brilinta] 90 mg PO BID #60 tab 03/03/19 10/17/19 Rx Carvedilol [Coreg] 3.125 mg PO BID-WM 03/27/19 10/17/19 History Bumetanide [Bumex] 2 mg PO BID-AC 04/26/19 10/17/19 History HumaLOG [HumaLOG Vial] 15 unit SC TID-WM 05/12/19 10/17/19 History Nitroglycerin [Nitrostat] 0.4 mg PO Q5MIN PRN #10 tab 07/02/19 10/17/19 Rx Aspirin [Ecotrin Low Strength] 81 mg PO DAILY 07/27/19 10/17/19 History Sacubitril/Valsartan 49/51 1 tab PO BID #60 tab 07/29/19 10/17/19 Rx [Entresto 49 mg-51 mg Tablet] traZODone HCl [Trazodone HCl] 150 mg PO DAILY 09/21/19 10/17/19 History Amlodipine [Norvasc] 10 mg PO DAILY 10/17/19 10/17/19 History Pantoprazole Sodium 40 mg PO AC 10/17/19 10/17/19 History Rosuvastatin [Crestor] 20 mg PO DAILY 10/17/19 10/17/19 History Topiramate [Topamax] 25 mg PO HS 10/17/19 10/17/19 History - History PMHx: CHF, HLD, DMII, CKD, depression, Gastroparesis, Migraines PSHx: Parotid tumor removal, AICD FHx: Father: DMII with gangrene ( 46), Mother: dM, CHF, STrok, CAD Social: No tobacco, alcohol, or recreational drugs. 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 - Review of Systems General: reports: fatigue Eyes: denies: vision changes ENT: denies: nasal congestion Respiratory: reports: shortness of breath Cardiovascular: reports: chest pain, palpitation Gastrointestinal: denies: nausea, abdominal pain Genitourinary: denies: dysuria Skin: denies: rashes Musculoskeletal: reports: pain (legs) Neurological: reports: syncope Psychological: reports: anxiety - Vital signs BP: 141/85 HR: 91 RR: 25 Tmax: 97.9 Pox: 97% ra Wt: 119.3 kg - Physical Exam Constitutional: NAD, awake, alert and oriented HEENT: normocephalic and atraumatic, EOMI, grossly normal vision, grossly normal hearing, MMM Neck: supple, trachea midline Heart: RRR, normal S1/S2, no murmurs/rubs/gallops, pulses present -Heart: LE +1 pitting edema Lungs: CTAB, no respiratory distress, good air movement, no rales/rhonchi, no wheezing, no retractions Abdomen: soft, bowel sounds present -Abdomen: lower abd tenderness to palpation Musculoskeletal: normal structure, normal tone Neurological: no focal deficit, CN II-XII intact, normal sensation Skin: no rash/lesions, good turgor Heme/Lymphatic: no unusual bruising or bleeding Psychiatric: normal mood and affect, good judgment and insight FMR H&P: Results - Labs Result Diagrams: 10/17/19 03:56 10/17/19 03:56 Lab results: WBC 11.7 thou/uL (4.8-10.8) H 10/16/19 19:37 Hgb 13.7 g/dL (12.0-16.0) 10/16/19 19:37 Hct 41.7 % (36.0-47.0) 10/16/19 19:37 MCV 74.5 fL (78.0-98.0) L 10/16/19 19:37 Plt Count 175 thou/uL (130-400) 10/16/19 19:37 Neutrophils % 76.0 % (42.0-75.0) H 10/16/19 19:37 Sodium 137 mmol/L (136-145) 10/16/19 19:37 Potassium 3.7 mmol/L (3.5-5.1) 10/16/19 19:37 Chloride 104 mmol/L (98-107) 10/16/19 19:37 Carbon Dioxide 23 mmol/L (22-29) 10/16/19 19:37 BUN 22 mg/dL (7.0-18.7) H 10/16/19 19:37 Creatinine 1.02 mg/dL (0.6-1.1) 10/16/19 19:37 Glucose 80 mg/dL (70-105) 10/16/19 19:37 Lactic Acid 1.4 mmol/L (0.5-2.2) 10/16/19 19:58 Calcium 9.7 mg/dL (7.8-10.44) 10/16/19 19:37 Total Bilirubin 0.5 mg/dL (0.2-1.2) 10/16/19 19:37 AST 18 U/L (5-34) 10/16/19 19:37 ALT 13 U/L (8-55) 10/16/19 19:37 Alkaline Phosphatase 83 U/L (40-110) 10/16/19 19:37 B-Natriuretic Peptide 158.5 pg/mL (0-100) H 10/16/19 19:58 Serum Total Protein 7.6 g/dL (6.0-8.3) 10/16/19 19:37 Albumin 3.8 g/dL (3.5-5.0) 10/16/19 19:37 Lipase 58 U/L (8-78) 10/16/19 19:37 - EKG Interpretation EKG: rate 80 NSR L anterior fascicular block 1st degree AV block - Radiology Interpretation Chest x-ray Status: image reviewed by me (no acute cardiopulmonary findings.), report reviewed by me FMR H&P: A/P - Problem List (1) Syncope Current Visit: Yes Status: Acute Code(s): R55 - SYNCOPE AND COLLAPSE (2) AICD (automatic cardioverter/defibrillator) present Current Visit: Yes Status: Chronic Code(s): Z95.810 - PRESENCE OF AUTOMATIC (IMPLANTABLE) CARDIAC DEFIBRILLATOR (3) CKD (chronic kidney disease) stage 3, GFR 30-59 ml/min Current Visit: Yes Status: Chronic Code(s): N18.3 - CHRONIC KIDNEY DISEASE, STAGE 3 (MODERATE) (4) DM type 2, uncontrolled, with neuropathy Current Visit: Yes Status: Chronic Code(s): E11.40 - TYPE 2 DIABETES MELLITUS WITH DIABETIC NEUROPATHY, UNSP; E11.65 - TYPE 2 DIABETES MELLITUS WITH HYPERGLYCEMIA (5) Dyslipidemia Current Visit: Yes Status: Chronic Code(s): E78.5 - HYPERLIPIDEMIA, UNSPECIFIED (6) HTN (hypertension) Current Visit: Yes Status: Chronic Code(s): I10 - ESSENTIAL (PRIMARY) HYPERTENSION Qualifiers: (7) Microcytic anemia Current Visit: Yes Status: Chronic Code(s): D50.9 - IRON DEFICIENCY ANEMIA, UNSPECIFIED (8) Chest discomfort Current Visit: Yes Status: Acute Code(s): R07.89 - OTHER CHEST PAIN - Plan 48 y/o F admitted to [facility] for AICD interrogation for possible arrhythmia causing cardiogenic symcope 1. Syncopal episode, probable cardiogenic - AICD interrogation ordered, as possible arrhythmia causing syncopal event - No CP, but reports sx similar to pleurisy - EKG NSR rate 70, 1st degree AV block 2. hx of CHF reduced EF, no current exacerbation - BNP: 158 -Continue home medications -Strict I&Os -Daily weights -ECHO (01/20): EF 25-30% 3. DMII -SSI -ACHS BG checks -Hypoglycemia protocol -Continue home medications 4. CKD Cr: 1.02 gfr: 58 - monitor daily 5. Depression Continue home medication 6. HLD Continue home medication 7. Migraine Continue home medication as needed Code Status: Full Diet: HH, fluid restrict DVT PPx: Lovenox PCP: Geovanna Dispo: Tele obs <48 hrs anticipated for AICD interrogation. FMR H&P: Upper Level - Plan Date/Time: 10/16/192206 IKeven DO, have evaluated this patient and agree with findings/plan as outlined by hospital intern resident. Pertinent changes/additions are listed here. This is in short a 48 yo female with a pmh of HFrEF, CAD, IDDM, HLD who presents to the ER with a cc of multiple syncopal episodes today. She states she was in her usual state of health when she suddenly felt light headed, sat on the couch and passed out. This happened multiple times today. She also reports feeling an electric pain in her chest that is improved but still present. She denies cough, fever, chills, nausea, or vomiting. She does reports some lower abdominal pain but denies dysuria, hematuria, constipation, or diarrhea. She did not check her blood sugar or BP at that time. She did state that she doubled her entresto, stopped her lasix and started double bumex due to her weight gain this week. Objective General: NAD, mild lethargy HEENT: AT/NC, mmm Cardio: no murmurs, RRR Resp: CTAB A/P Syncope, likely related to heart failure -Admit to tele -Troponin neg, will trend -BNP 158 which represents one of her lowest values recently -TSH WNL -Will interogate AICD to r/o arrhythmia CKD stage 3 -Cr 1.02, likely at her new baseline Chronic conditions as detailed by hospital intern note Code: Full Prophylaxis: lovenox Family: None at bedside Fluids: SL Diet: HH Disposition: DC in 1-2 days PCP: Dr. Austin Addendum - Attending - Attending Attestation Date/Time: 10/17/19 0904 I personally evaluated the patient and discussed the management with the team. I agree with the History, Examination, Assessment and Plan documented above with any addition or exceptions noted below. Patient with multiple possible syncopal episodes with associated palpitations and possible "shocks." Will obs on tele and interrogate AICD. Unclear etiology at this point.
[2019-10-16] MEDS ORDERED: SUMAtriptan Succinate 50 MG TAB PO PRN (22:41)
[2019-10-16] MEDS ORDERED: Nitroglycerin 0.4 MG TAB (25 Tab Bottle) SL PRN (22:41)
[2019-10-16] MEDS ORDERED: Dextrose 5% in Water 1,000 ML IV PRN (22:52)
[2019-10-16] MEDS ORDERED: Insulin Regular 300 UNITS/3 ML VIAL SC PRN ×2 (22:52)
[2019-10-16] MEDS ORDERED: Dextrose 50% Abboject 50 ML SYRINGE SLOW IVP PRN (22:52)
[2019-10-16 23:17] LABS: Troponin I 0.021 ng/mL (< 0.028)
[2019-10-16 23:35] VITALS: BMI 43.6
[2019-10-17 02:20] LABS: Troponin I 0.023 ng/mL (< 0.028)
[2019-10-17 04:28] LABS: #Eosinphils 0.4 thou/uL (0.0-0.7); #Lymphocytes 2.9 thou/uL (1.20-3.40); #Monocytes 0.5 thou/uL (0.11-0.59); #Neutrophils 6.5 thou/uL (1.40-6.50); %Basophils 0.4 % (0.0-1.0); %Eosinophils 3.7 % (0.0-10.0); %Monocytes 5.2 % (0.0-10.0); %Neutrophils 62.7 % (42.0-75.0); Hemoglobin 12.8 g/dL (12.0-16.0); Mean Corpuscular Volume 74.9 fL (78.0-98.0); Mean Platelet Volume 9.6 fL (7.4-10.4); Platelet Count 172 thou/uL (130-400); RBC Distribution Width 15.2 % (11.5-14.5); Red Blood Cell (RBC) Count 5.35 mill/uL (4.20-5.40); White Blood Cell (WBC) Count 10.3 thou/uL (4.8-10.8)
[2019-10-17 04:47] LABS: ALT (SGPT) 11 U/L (8-55); AST (SGOT) 15 U/L (5-34); Albumin 3.4 g/dL (3.5-5.0); Alkaline Phosphatase 71 U/L (40-110); Anion Gap 16 mmol/L (10-20); BUN (Urea Nitrogen) 28 mg/dL (7.0-18.7); Bilirubin, Total 0.3 mg/dL (0.2-1.2); Calc. Creatinine Clearance 123 mL/min (70-130); Calcium 9.2 mg/dL (7.8-10.44); Carbon Dioxide 22 mmol/L (22-29); Chloride 105 mmol/L (98-107); Estimated GFR-MDRD 56; Globulin 3.3 g/dL (2.4-3.5); Glucose 112 mg/dL (70-105); Potassium 3.6 mmol/L (3.5-5.1); Protein, Total 6.7 g/dL (6.0-8.3); Sodium 139 mmol/L (136-145)
--- NOTE | 2019-10-17 06:50 | PDOC.FM ---
- Subjective Subjective: Reviewed her recent history. States that sx started with dizziness and "difficulty walking straight". Laid down to rest on the couch and quickly fell asleep. When awakened by daughter was disoriented. During this time was feeling "little shocks" in her left chest that she states felt like when her leads were misplaced for her pacemaker previously. States she sent a manual pacemaker report to her public information director, Dr. Matute prior to going to ED. Denies any current sx. No events overnight. - Objective Vital Signs & Weight: Vital Signs (12 hours) Temp Pulse Resp BP BP BP BP 10/17/19 06:02 135/69 131/72 131/61 10/17/19 03:30 97.7 F 80 18 122/67 10/16/19 23:19 98.0 F 84 14 117/59 L Pulse Ox 10/17/19 06:02 10/17/19 03:30 97 10/16/19 23:19 99 Weight Weight 119 kg I&O: 10/15/19 10/16/19 10/17/19 06:59 06:59 06:59 Intake Total 600 Output Total 1600 Balance -1000 Result Diagrams: 10/17/19 03:56 10/17/19 03:56 Phys Exam - Physical Examination Constitutional: NAD HEENT: sclera anicteric Respiratory: clear to auscultation bilateral Cardiovascular: RRR Gastrointestinal: soft Musculoskeletal: no edema, pulses present Neurological: non-focal, normal sensation, moves all 4 limbs Psychiatric: normal affect, A&O x 3 Skin: cap refill <2 seconds Dx/Plan (1) Syncope Code(s): R55 - SYNCOPE AND COLLAPSE Status: Acute (2) AICD (automatic cardioverter/defibrillator) present Code(s): Z95.810 - PRESENCE OF AUTOMATIC (IMPLANTABLE) CARDIAC DEFIBRILLATOR Status: Chronic (3) CKD (chronic kidney disease) stage 3, GFR 30-59 ml/min Code(s): N18.3 - CHRONIC KIDNEY DISEASE, STAGE 3 (MODERATE) Status: Chronic (4) DM type 2, uncontrolled, with neuropathy Code(s): E11.40 - TYPE 2 DIABETES MELLITUS WITH DIABETIC NEUROPATHY, UNSP; E11.65 - TYPE 2 DIABETES MELLITUS WITH HYPERGLYCEMIA Status: Chronic (5) Dyslipidemia Code(s): E78.5 - HYPERLIPIDEMIA, UNSPECIFIED Status: Chronic (6) HTN (hypertension) Code(s): I10 - ESSENTIAL (PRIMARY) HYPERTENSION Status: Chronic Qualifiers: - Plan Plan: Syncopal episode, likely cardiogenic - AICD interrogation ordered - EKG NSR rate 70, 1st degree AV block - Telemetry without arrhythmias - Radiology Supervisor, Dr. Matute, Consulted per pt request - appreciate recs - If no cardiologic component identified and sx return consider neuro workup Hx of CHF reduced EF, no current exacerbation -BNP: 158 -Continue home medications -Strict I&Os -Daily weights -ECHO (01/20): EF 25-30% DMII -SSI -ACHS BG checks -Hypoglycemia protocol -Continue home medications CKD Cr: 1.02 gfr: 58 - monitor Depression Continue home medication HLD Continue home medication Migraine Continue home medication as needed Code Status: Full Diet: HH, fluid restrict DVT PPx: Lovenox PCP: Geovanna Dispo: Tele obs <48 hrs anticipated for AICD interrogation and tele monitoring. Addendum - Attending - Attending Attestation Date/Time: 10/17/19 7255 I personally evaluated the patient and discussed the management with Dr. Burns. . I agree with the History, Examination, Assessment and Plan documented above with any addition or exceptions noted below. Patient feeling well. Awaiting AICD interrogation and cardiology input regarding her possible syncope given her cardiac history. She is otherwise stable at this time.
[2019-10-17] MEDS ORDERED: Furosemide 40 MG TAB PO SCH (09:00)
[2019-10-17] MEDS: TICAGRELOR 90 MG TABLET PO SCH ×2 (09:06→20:39)
[2019-10-17] MEDS: Aspirin 81 mg Enteric Coated Tablet PO SCH (09:06)
[2019-10-17] MEDS: Sacubitril 49 MG/Valsartan 51 MG TABLET PO SCH ×2 (09:06→20:38)
[2019-10-17] MEDS: Spironolactone 25 MG TAB PO SCH ×2 (09:06→17:15)
[2019-10-17] MEDS: Carvedilol 3.125 MG TAB PO SCH ×2 (09:06→17:16)
[2019-10-17] MEDS: Bumetanide 1 MG TAB PO SCH ×2 (09:06→17:16)
[2019-10-17] MEDS: HumaLOG 300 UNITS/3 ML VIAL SC SCH ×3 (09:07→16:52)
[2019-10-17] MEDS: Insulin Glargine 35 UNITS in Pre-Filled Syringe 1 EACH SC SCH ×2 (09:07→20:28)
[2019-10-17] MEDS: Enoxaparin Sodium 40 MG/0.4 ML SYRINGE SC SCH (09:07)
[2019-10-17] MEDS ORDERED: Acetaminophen 325 MG TAB PO PRN (13:00)
--- NOTE | 2019-10-17 23:14 | CON ---
DATE OF CONSULTATION: HISTORY: Yuli Hayes is a 48-year-old female, who has known history of coronary artery disease. I initially evaluated her in May 2018. At that time, she gave a history of stent placement in her coronary arteries in 2015 in [place], [place]. However, at catheterization, no stent was seen. In January 2018, she was admitted with chest pain and underwent Cardiolite scan which was normal. She had been very noncompliant with her medications at that time, not even take an aspirin. When she was admitted in May 2018, she had chest pressure that started around midnight. She was given Zofran, nitroglycerin sublingually, morphine 4 mg, aspirin 324 mg, nitroglycerin paste and another 2 mg of morphine as well as Lovenox 1 mg /kg. She was started on nitroglycerin drip. Her pain eventually resolved. EKG had been normal. She had a troponin that went up to 10.57. CT scan of the chest did not reveal any evidence of pulmonary emboli. She underwent cardiac catheterization and it was noted that no previous stents had been placed. She had mild anterior hypokinesis with ejection fraction of 45% to 50%. She was found to have an 80% mid LAD lesion, 80% first diagonal lesion, total occlusion of the second diagonal that filled retrograde. There was a 60% distal LAD stenosis. There was 30% and 50% lesion in the first obtuse marginal. The right coronary artery was normal. She underwent placement of Rebel 2.5 x 16 mm in the mid LAD, post dilated with a 3.5 mm balloon. In the first diagonal, a Rebel 2.25 x 8 mm stent was placed. Bare metal stents were placed due to concern about her lack of compliance with previous medical therapy. She was readmitted on November 08, 2018, with chest heaviness. There were no EKG changes. Due to her history and the timeframe being that our in-stent restenosis, she underwent repeat catheterization. There was apical akinesis and moderate anterior hypokinesis with ejection fraction of 40% to 45%. There was a 90% mid LAD in-stent restenosis. The first diagonal stent was patent. Second diagonal is totally occluded as it had been in May 2018 and filled retrograde from the left. The circumflex had a 30% and 50% lesion in the first obtuse marginal. There was a 20% distal right coronary artery stenosis. She underwent placement of a drug-eluting stent. Synergy 2.5 x 16 and 2.25 x 12 in the LAD with lesion being reduced to 0%. 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 She became short of breath, mildly diaphoretic and felt nauseous. She underwent repeat catheterization and had apical akinesis and moderate anterior hypokinesis. The mid LAD stents were patent. There was 80% first diagonal stenosis proximal to the previous diagonal stent. The second diagonal was totally occluded and filled retrograde as before. The first obtuse marginal had progressed to an 80% lesion. The right coronary artery had a distal 30% stenosis. She underwent placement of Synergy 2.25 x 12 and 2.25 x 12 in the first diagonal. In the first obtuse marginal, Synergy 2.25 x 8 and 2.5 x 12 were placed. She then presented again on February 23, 2019, with acute anterior infarction. She was taken to the slab installer by Dr. Oliveira in my absence and was found to have acute stent thrombosis in the mid LAD. Troponin was 36.54. She underwent PTCA of the mid LAD. Several days later, she had respiratory failure with pulmonary edema. Echo showed severe ischemic cardiomyopathy with ejection fraction of 25% to 30%. During that time, she developed new left bundle-branch block and required BiPAP, dobutamine and gentle diuresis and eventually improved. She also had acute kidney injury with creatinine increasing from 1.04 up to 4.80 and then this gradually improved to 1.49. LifeVest was fitted at the time of discharge. She was again admitted in March 2019 with 4 to 5 days of postprandial vomiting. She started to have burning in her chest and chest pain and this was the pain that was driving her to the emergency room. EKG showed old anterior infarction and she had resolution of her left bundle-branch block. Cardiac enzymes were unremarkable. It was felt that her chest pain was probably not cardiac in nature. It was felt that her symptoms were probably more reflux related. She was placed on Protonix. She was again admitted in April 2019, with atypical chest pain and she was placed on Ranexa at that time. She also had not been taking her Brilinta for 2 weeks. Cardiac enzymes were unremarkable. In May 2019, she was admitted with encephalopathy, probably due to migraine headache. She was continued on the LifeVest. In early June 2019, she was admitted in [place] with chest discomfort and underwent catheterization. Ejection fraction was approximately 30% and she had a patent LAD stent and patent diagonal stent. The second diagonal was occluded as before and filled retrograde. The obtuse marginal stent was patent and the right coronary artery had minimal disease. She was admitted here later in June 2019 with chest discomfort and fairly unremarkable cardiac enzymes. She continued to have significant left ventricular dysfunction on repeat echo and on July 25, she underwent [facility] She then presented here 2 days later with probable diaphragmatic stimulation from her ICD. She was found to have lead dislodgement and this was repositioned. She has continued to follow up in [facility]. She was seen in the office on October 06, and her dose of Entresto was increased to a maximum dose. She was told to only take Lasix and not Bumex and Lasix, however, when she did that, she had a 10-pound weight gain, went back to Bumex alone. She now is admitted with the thought that she passed out or had a shock from her device. She was very somnolent and somewhat mentally not right and her daughter called paramedics to bring her to the hospital. On interrogation of her ICD, she has had no arrhythmias and no ICD shocks. Also is of note that she is taking amlodipine 10 mg daily, which she should not be taking and this may have represented a hypotensive episode. PAST MEDICAL HISTORY: Coronary artery disease with myocardial infarction on 4 occasions, hyperlipidemia with noncompliance with statin in the past, acute stent thrombosis with possible noncompliance with dual antiplatelet therapy, obesity, diabetes, hypercholesterolemia, hypertension, left bundle-branch block in the past, which resolved and anxiety/depression. PAST SURGICAL HISTORY: Coronary artery stent placement, removal of tumor from the right side of her neck, single chamber ICD placement. MEDICATIONS: At home, 1. Amlodipine 10 mg daily (she should not be taking this). 2. Aspirin 81 daily. 3. Brilinta 90 mg b.i.d. 4. Bumex 2 mg b.i.d. 5. Carvedilol 3.125 b.i.d. 6. Humalog. 7. Isosorbide 60 mg q.a.m. 8. Ranexa 1000 mg b.i.d. 9. Nitroglycerin p.r.n. 10. Protonix 40 daily. 11. Crestor 20 mg daily. 12. Entresto 97/103 b.i.d. 13. Sertraline 150 daily. 14. Aldactone 25 mg b.i.d. 15. Imitrex 50 p.r.n. 16. Topamax 25 at bedtime. 17. Trazodone 150 at bedtime. ALLERGIES: NONE. SOCIAL HISTORY: She does not smoke or drink. FAMILY HISTORY: Her father and mother have myocardial infarction. REVIEW OF SYSTEMS: A 12-point review of systems unremarkable. PHYSICAL EXAMINATION: VITAL SIGNS: Blood pressure 108/56, pulse of 89. HEENT: PERRL. NECK: Supple. CHEST: Clear. CARDIAC: S1 and S2 normal without any S3, S4, or murmurs. ABDOMEN: Obese. Normal bowel sounds. No tenderness or organomegaly. EXTREMITIES: Revealed no clubbing, cyanosis, or edema. NEUROLOGICAL: Grossly intact. SKIN: Warm and dry. DIAGNOSTIC DATA AND LABORATORY DATA: EKG revealed sinus rhythm, possible left atrial enlargement, septal infarction, left axis deviation. Hemoglobin 12.8, hematocrit 40.1, white count 10,300, platelets 172,000. Sodium 139, potassium 3.6, chloride 105, carbon dioxide 22, BUN 28, and creatinine 1.04. Troponin I is normal. TSH is normal. BNP 158.5. IMPRESSION AND PLAN: 1. Noncardiac chest pain with normal troponin I. 2. Episode of weakness and some lethargy at home. This certainly may be due to hypotension, induced by taking amlodipine, which she should not be on present time. Also, she is on the mid-range Entresto dose at this time, off the amlodipine and still has a systolic in the 108 range. 3. Complicated cardiac history over the last year and a half. She had placement of bare metal stents in the LAD and the first diagonal in May 2018. In November 2018, she had drug-eluting stent placed in the LAD, in-stent restenosis. In January 2019, she had drug-eluting stent placed in the first diagonal and the first obtuse marginal. She then had acute stent thrombosis of the mid LAD stent. She underwent thrombectomy of this and PTCA, but no new stents were placed. She was recathed in [place] with stable anatomy and no intervention was performed. 4. Left bundle-branch block in February 2019 which has resolved. 5. Severe ischemic cardiomyopathy with ejection fraction of approximately 30%. 6. Acute respiratory failure with pulmonary edema after infarction in February 2019. 7. Questionable compliance with medications in the past with the acute stent thrombosis as well as having her LDL go from 65 up to 177 at one time while supposedly still on her statin. 8. Status post single-chamber ICD placement in July 2019. Upon interrogation of this, she has not had any ventricular or atrial arrhythmias. She certainly has not had an ICD shock. 9. Hypertension. 10. Diabetes. 11. Obesity. 12. Hypercholesterolemia. 13. Positive family history. 14. History of renal insufficiency with creatinine increasing to 4.80 when she had failure and pulmonary edema after infarction. RECOMMENDATIONS: Ms. Hayes has not had any type of cardiac arrhythmia. Her symptoms certainly could have been due to hypotension. She was taking amlodipine 10 mg daily at home, which she is not to be doing. Due to her blood pressure reading this morning, I will keep her at the mid range Entresto dose. Once her blood pressure is adequately controlled, I do not feel any further cardiac evaluation or intervention is warranted at this time. Job ID: [id number] [id number]
--- NOTE | 2019-10-18 06:46 | PDOC.FM ---
- Subjective Subjective: Denies any further dizziness, lightheadedness, or disorientation. Has been feeling at her baseline. No further events. Talked about appropriate Rx regimen with Dr. Matute yesterday. - Objective Vital Signs & Weight: Vital Signs (12 hours) Temp Pulse Resp BP BP Pulse Ox 10/18/19 03:46 98.1 F 92 16 114/64 95 10/17/19 23:17 98.7 F 86 18 136/67 97 10/17/19 18:55 98.0 F 85 16 138/71 97 Weight Weight 119 kg I&O: 10/16/19 10/17/19 10/18/19 06:59 06:59 06:59 Intake Total 600 1000 Output Total 1600 Balance -1000 1000 Result Diagrams: 10/17/19 03:56 10/17/19 03:56 Phys Exam - Physical Examination Constitutional: NAD HEENT: sclera anicteric Neck: full ROM No respiratory distress Cardiovascular: RRR Musculoskeletal: no edema Neurological: moves all 4 limbs Psychiatric: normal affect, A&O x 3 Dx/Plan (1) Syncope Code(s): R55 - SYNCOPE AND COLLAPSE Status: Acute (2) AICD (automatic cardioverter/defibrillator) present Code(s): Z95.810 - PRESENCE OF AUTOMATIC (IMPLANTABLE) CARDIAC DEFIBRILLATOR Status: Chronic (3) CKD (chronic kidney disease) stage 3, GFR 30-59 ml/min Code(s): N18.3 - CHRONIC KIDNEY DISEASE, STAGE 3 (MODERATE) Status: Chronic (4) DM type 2, uncontrolled, with neuropathy Code(s): E11.40 - TYPE 2 DIABETES MELLITUS WITH DIABETIC NEUROPATHY, UNSP; E11.65 - TYPE 2 DIABETES MELLITUS WITH HYPERGLYCEMIA Status: Chronic (5) Dyslipidemia Code(s): E78.5 - HYPERLIPIDEMIA, UNSPECIFIED Status: Chronic (6) HTN (hypertension) Code(s): I10 - ESSENTIAL (PRIMARY) HYPERTENSION Status: Chronic Qualifiers: - Plan Plan: Near syncopal episode - possibly hypotensive episode -AICD interrogated and no arrhythmias or firing -Dr. Matute saw pt, noted a complex recent cardiac history - Pt had been taking lasix and bumex when only supposed to be taking single agent - Pt also had been taking amlodipine which she was supposed to be - Recently had entresto maximized -In context of this new information and pt's history her event very likely was due to hypotensive episode from medication noncompliance Hx of CHF reduced EF, no current exacerbation -BNP: 158 -Continue home medications -Strict I&Os -Daily weights -ECHO (01/20): EF 25-30% DMII -SSI -ACHS BG checks -Hypoglycemia protocol -Continue home medications CKD Cr: 1.02 gfr: 58 Depression Continue home medication HLD Continue home medication Migraine Continue home medication as needed Code Status: Full Diet: HH, fluid restrict DVT PPx: Lovenox PCP: Geovanna Dispo: Tele obs. Plan for DC later today. Addendum - Attending - Attending Attestation Date/Time: 10/18/19 0290 I personally evaluated the patient and discussed the management with Dr. Burns. I agree with the History, Examination, Assessment and Plan documented above with any addition or exceptions noted below. Patient stable for discharge.
[2019-10-18 07:36] VITALS: BP 135/69; TEMP 97.9
[2019-10-18] MEDS: Aspirin 81 mg Enteric Coated Tablet PO SCH (07:38)
[2019-10-18] MEDS: Enoxaparin Sodium 40 MG/0.4 ML SYRINGE SC SCH (07:38)
[2019-10-18] MEDS: Spironolactone 25 MG TAB PO SCH (07:39)
[2019-10-18] MEDS: Bumetanide 1 MG TAB PO SCH (07:39)
[2019-10-18] MEDS: TICAGRELOR 90 MG TABLET PO SCH (07:39)
[2019-10-18] MEDS: HumaLOG 300 UNITS/3 ML VIAL SC SCH (07:39)
[2019-10-18] MEDS: Sacubitril 49 MG/Valsartan 51 MG TABLET PO SCH (07:39)
[2019-10-18] MEDS: Carvedilol 3.125 MG TAB PO SCH (07:39)
[2019-10-18] MEDS: Insulin Glargine 35 UNITS in Pre-Filled Syringe 1 EACH SC SCH (07:40)
--- NOTE | 2019-10-18 12:06 | EKG ---
Test Reason : Blood Pressure : / mmHG Vent. Rate : 080 BPM Atrial Rate : 080 BPM P-R Int : 212 ms QRS Dur : 094 ms QT Int : 422 ms P-R-T Axes : 021 -52 078 degrees QTc Int : 486 ms Sinus rhythm with 1st degree A-V block Possible Left atrial enlargement Left anterior fascicular block Septal infarct , age undetermined Lateral infarct , age undetermined Abnormal ECG Confirmed by BERONICA العلي ([id number]), video tape editor SUSAN ACOSTA ([id number]) on 10/18/2019 12:05:43 PM Referred By: Confirmed By:BERONICA Foster
[2019-10-18] MEDS ORDERED: Rosuvastatin 20 MG TAB PO SCH (21:00)
--- NOTE | 2019-10-19 02:37 | DIS ---
DATE OF ADMISSION: 10/16/2019 DATE OF DISCHARGE: 10/18/2019 ADMITTING ATTENDING: Iglesia Geller MD DISCHARGE ATTENDING: Hussain Campo MD RESIDENT: Kyaw Burns DO. CONSULT: Cardiology, Subhash Matute MD PROCEDURES: None. IMAGING: Chest x-ray, 10/16/2019. Impression, no acute cardiopulmonary abnormality. PRIMARY DIAGNOSES: Possible syncopal episode, medication noncompliance. SECONDARY DIAGNOSES: History of systolic heart failure, hypertension, microcytic anemia, dyslipidemia, and chronic kidney disease stage 3. DISCHARGE MEDICATIONS: 1. Sertraline 150 mg daily. 2. Sumatriptan 50 mg p.r.n. 3. Isosorbide mononitrate 60 mg daily. 4. Ranexa 1000 mg p.o. b.i.d. 5. Spironolactone 25 mg b.i.d. 6. Brilinta 90 mg b.i.d. 7. Coreg 3.125 mg b.i.d. 8. Bumex 2 mg b.i.d. 9. Humalog 15 units subcu t.i.d. with meals. 10. Nitrostat 0.4 mg q.5 minutes p.r.n. 11. Aspirin 81 mg daily. 12. Entresto b.i.d. 13. Trazodone 150 mg daily. 14. Rosuvastatin 20 mg daily. 15. Pantoprazole 40 mg daily. 16. Topiramate 25 mg daily. Discontinued medication; amlodipine 10 mg daily. HISTORY OF PRESENT ILLNESS AND HOSPITAL COURSE: A 48-year-old female, who presented to the hospital with complaints of dizziness and near syncope earlier today. She stated that while driving, she started to become dizzy and lightheaded, she got home and had difficulty walking, she then got onto her couch and fell asleep. Later , her daughter awoke her and found her to be disoriented, prompting her to seek evaluation in the emergency department. Initial workup in the emergency department was negative for any significant findings. The patient does have a history of significant systolic heart failure and coronary artery disease and has a pacemaker in place. This pacemaker was placed earlier this year and had lead revision due to diaphragmatic stimulation. The patient was subsequently admitted for observation. Her AICD was interrogated and found no arrhythmic events and did not discharge. The patient was seen by her marine design engineer, Dr. Subhash Matute, who after discussion discovered that the patient was taking her amlodipine, although she was previously instructed not to after her Entresto was recently increased. She was also taking both her Bumex and Lasix, although she was instructed to discontinue her Lasix. With this information, we felt it was likely that the patient's episode was most likely due to hypotensive episode due to her excess of antihypertensives and diuretics. Throughout the patient's stay, she had no further similar events and was subsequently discharged home. DISCHARGE INSTRUCTIONS: Location: Home. Diet: Heart healthy. Activity: As tolerated. FOLLOWUP: PCP within 7 days. Job ID: [id number] MTDD
== END 2019-10-18 13:08 | disposition home or self-care (01) ==
LOC: ERS 19:19 → 2NO 23:29
PROVIDERS: ADMIT Emergency Medicine; ATTEND Emergency Medicine
DX: R55 Syncope and collapse (principal); R42 Dizziness and giddiness; I13.0 Hypertensive heart and chronic kidney disease with heart failure and stage 1 through stage 4 chronic kidney disease, or unspecified chronic kidney disease; E11.22 Type 2 diabetes mellitus with diabetic chronic kidney disease; N18.3 Chronic kidney disease, stage 3 (moderate); I50.20 Unspecified systolic (congestive) heart failure; D50.9 Iron deficiency anemia, unspecified; E78.5 Hyperlipidemia, unspecified; I25.2 Old myocardial infarction; R07.89 Other chest pain; M79.606 Pain in leg, unspecified; M79.602 Pain in left arm; F32.9 Major depressive disorder, single episode, unspecified; G43.909 Migraine, unspecified, not intractable, without status migrainosus; E11.43 Type 2 diabetes mellitus with diabetic autonomic (poly)neuropathy; K31.84 Gastroparesis; E11.40 Type 2 diabetes mellitus with diabetic neuropathy, unspecified; I25.10 Atherosclerotic heart disease of native coronary artery without angina pectoris; F41.9 Anxiety disorder, unspecified; I25.5 Ischemic cardiomyopathy; E66.9 Obesity, unspecified; Z91.14 Patient's other noncompliance with medication regimen; Z68.41 Body mass index [BMI] 40.0-44.9, adult; Z79.02 Long term (current) use of antithrombotics/antiplatelets; Z79.4 Long term (current) use of insulin; Z79.82 Long term (current) use of aspirin; Z79.899 Other long term (current) drug therapy; Z95.810 Presence of automatic (implantable) cardiac defibrillator
CPT/HCPCS: 36415; 36416; 71045; 80053; 83605; 83690; 83735; 83880; 84443; 84484; 85025; 93005; 94760; 96372; G0378; J1650; J1815

== ENCOUNTER 2019-12-17 17:30 | Observation (INO) | payer BC ==
[2019-12-17 18:33] LABS: Bacteria/HPF None Seen HPF (None Seen); Bilirubin Negative (Negative); Blood, Urine Negative (Negative); Clarity Clear (Clear); Glucose, Urine (Dipstick) Normal (Negative); Ketone, Urine Negative (Negative); Leukocyte Negative Leu/uL (Negative); Nitrite Negative (Negative); Protein, Urine (Dipstick) 100 mg/dL (Neg-Trace); RBC/HPF 0-3 HPF (0-3); Specific Gravity, Urine 1.013 (1.002-1.036); Urobilinogen Normal mg/dL (Less than 2); WBC/HPF 0-3 HPF (0-3); pH, Urine 5.5 (5.0-9.0)
[2019-12-17 19:10] LABS: #Basophils 0.1 thou/uL (0.0-0.2); #Eosinphils 0.3 thou/uL (0.0-0.7); #Lymphocytes 2.8 thou/uL (1.20-3.40); #Monocytes 0.3 thou/uL (0.11-0.59); #Neutrophils 4.8 thou/uL (1.40-6.50); %Basophils 0.8 % (0.0-1.0); %Eosinophils 3.7 % (0.0-10.0); %Lymphocytes 33.9 % (21.0-51.0); %Monocytes 4.1 % (0.0-10.0); %Neutrophils 57.5 % (42.0-75.0); Hemoglobin 13.4 g/dL (12.0-16.0); Mean Corpuscular HGB CONC 34.8 g/dL (32.0-36.0); Mean Corpuscular Volume 74.8 fL (78.0-98.0); Mean Platelet Volume 10.3 fL (7.4-10.4); Platelet Count 137 thou/uL (130-400); RBC Distribution Width 15.1 % (11.5-14.5); Red Blood Cell (RBC) Count 5.15 mill/uL (4.20-5.40); White Blood Cell (WBC) Count 8.4 thou/uL (4.8-10.8)
[2019-12-17 19:18] LABS: ALT (SGPT) 13 U/L (8-55); AST (SGOT) 15 U/L (5-34); Albumin 3.9 g/dL (3.5-5.0); Alkaline Phosphatase 64 U/L (40-110); Anion Gap 12 mmol/L (10-20); BUN (Urea Nitrogen) 39 mg/dL (7.0-18.7); Bilirubin, Total 0.8 mg/dL (0.2-1.2); CK (CPK) 100 U/L (29-168); Calc. Creatinine Clearance 0 mL/min (70-130); Calcium 9.4 mg/dL (7.8-10.44); Carbon Dioxide 28 mmol/L (22-29); Chloride 99 mmol/L (98-107); Estimated GFR-MDRD 23; Globulin 3.1 g/dL (2.4-3.5); Glucose 225 mg/dL (70-105); Potassium 4.4 mmol/L (3.5-5.1); Sodium 135 mmol/L (136-145)
[2019-12-17 19:23] LABS: CKMB 1.4 ng/mL (0-6.6); MDiff Complete? YES; Microcytosis SLIGHT = 6-15 cells (100X) (0-5/hpf); Platelet Morphology Comment Appears Adequate
[2019-12-17] MEDS ORDERED: diphenhydrAMINE 50 MG/ML VIAL ONE (19:28)
[2019-12-17 23:08] LABS: CKMB 1.4 ng/mL (0-6.6)
[2019-12-17] MEDS ORDERED: Aspirin Chewable 81 MG TAB ONE (23:34)
--- NOTE | 2019-12-17 23:46 | PDOC.FPRHP ---
- History of Present Illness Chief Complaint: dizziness & back pain History of Present Illness: Ms. Hayes is a 49 yo female with PMH of HFrEF s/p AICD placement, CAD s/p stents x8, HTN, IDDMII, HLD, CKDIII, and depression who presents to the ED for dizziness/GUZMAN. She reports that she has been feeling dizzy and has had headaches for the past 2 days. While working outside today she became dizzy and believes that she passed out after sitting down in her truck, denies falling or hitting her head. Pt reports that she has been staying hydrated while working out in the heat, estimating 3 L of water intake. During this episode she reports blurry vision and "feeling drunk". She also reports lower back pain. Denies stroke symptoms, fever, cough. Pt was recently admitted in October with similar symptoms. It was found that she was not taking some of her medications as prescribed. Per the notes, she was instructed to only take Bumex and discontinue Lasix. Pt reports that she is no longer taking both, but has increased her lasix from 40 mg BID to 80mg BID. ED Course: EKG and labs obtained in ED. Pt stable. - Allergies/Adverse Reactions Allergies Allergy/AdvReac Type Severity Reaction Status Date / Time No Known Drug Allergies Allergy Verified 08/24/19 09:20 - Home Medications Medication Instructions Recorded Confirmed Type Sertraline HCl [Zoloft] 150 mg PO DAILY 05/05/18 10/17/19 History Isosorbide Mononitrate [Imdur] 60 mg PO DAILY 11/08/18 10/17/19 History SUMAtriptan Succinate [Imitrex] 50 mg PO PRN PRN 11/08/18 10/17/19 History Ranolazine [Ranexa] 1,000 mg PO BID #60 tab 01/07/19 10/17/19 Rx Spironolactone [Aldactone] 25 mg PO BID-WM #60 tab 03/03/19 10/17/19 Rx Ticagrelor [Brilinta] 90 mg PO BID #60 tab 03/03/19 10/17/19 Rx Carvedilol [Coreg] 3.125 mg PO BID-WM 03/27/19 10/17/19 History Bumetanide [Bumex] 2 mg PO BID-AC 04/26/19 10/17/19 History HumaLOG [HumaLOG Vial] 15 unit SC TID-WM 05/12/19 10/17/19 History Nitroglycerin [Nitrostat] 0.4 mg PO Q5MIN PRN #10 tab 07/02/19 10/17/19 Rx Aspirin [Ecotrin Low Strength] 81 mg PO DAILY 07/27/19 10/17/19 History Sacubitril/Valsartan 49/51 1 tab PO BID #60 tab 07/29/19 10/17/19 Rx [Entresto 49 mg-51 mg Tablet] traZODone HCl [Trazodone HCl] 150 mg PO DAILY 09/21/19 10/17/19 History Pantoprazole Sodium 40 mg PO AC 10/17/19 10/17/19 History Rosuvastatin [Crestor] 20 mg PO DAILY 10/17/19 10/17/19 History Topiramate [Topamax] 25 mg PO HS 10/17/19 10/17/19 History - History PMHx: HFrEF s/p AICD placement, IDDMII, HTN, HLD, iron deficiency anemia, CKDIII PSHx: Hx stent placement x8, parotid tumor resection FHx: father- DMII, mother- CAD Social: denies tobacco, alcohol, drugs. 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 denies: cough Cardiovascular: reports: paroxysmal nocturnal dyspnea, orthopnea. denies: chest pain, edema Gastrointestinal: denies: diarrhea, constipation, GI bleeding Genitourinary: denies: dysuria Skin: denies: rashes, itching Musculoskeletal: reports: pain, other (back pain) Neurological: reports: syncope, other (dizziness). denies: weakness - Vital signs BP: 140/86 HR: 86 RR: 24 Tmax: Pox: 100% on RA Wt: 117 - Physical Exam Constitutional: NAD, other (intermittently in and out of consciousness over course of exam) HEENT: normocephalic and atraumatic, grossly normal vision, grossly normal hearing, MMM Neck: supple, FROM Heart: RRR, normal S1/S2, no edema Lungs: CTAB, no respiratory distress, good air movement, no rales/rhonchi, no wheezing, no retractions Musculoskeletal: normal structure, ROM grossly normal Neurological: no focal deficit Skin: no rash/lesions, good turgor Heme/Lymphatic: no unusual bruising or bleeding Psychiatric: normal mood and affect, good judgment and insight, other (slightly impaired recent memory but also very drowsy during exam) FMR H&P: Results - Labs Result Diagrams: 12/18/19 04:27 12/18/19 04:27 Lab results: WBC 8.4 thou/uL (4.8-10.8) 12/17/19 18:51 Hgb 13.4 g/dL (12.0-16.0) 12/17/19 18:51 Hct 38.5 % (36.0-47.0) 12/17/19 18:51 MCV 74.8 fL (78.0-98.0) L 12/17/19 18:51 Plt Count 137 thou/uL (130-400) 12/17/19 18:51 Neutrophils % 57.5 % (42.0-75.0) 12/17/19 18:51 Sodium 135 mmol/L (136-145) L 12/17/19 18:51 Potassium 4.4 mmol/L (3.5-5.1) 12/17/19 18:51 Chloride 99 mmol/L (98-107) 12/17/19 18:51 Carbon Dioxide 28 mmol/L (22-29) 12/17/19 18:51 BUN 39 mg/dL (7.0-18.7) H 12/17/19 18:51 Creatinine 2.25 mg/dL (0.6-1.1) H 12/17/19 18:51 Glucose 225 mg/dL (70-105) H 12/17/19 18:51 Calcium 9.4 mg/dL (7.8-10.44) 12/17/19 18:51 Total Bilirubin 0.8 mg/dL (0.2-1.2) 12/17/19 18:51 AST 15 U/L (5-34) 12/17/19 18:51 ALT 13 U/L (8-55) 12/17/19 18:51 Alkaline Phosphatase 64 U/L (40-110) 12/17/19 18:51 Creatine Kinase 100 U/L (29-168) 12/17/19 18:51 CK-MB (CK-2) 1.4 ng/mL (0-6.6) 12/17/19 22:19 Serum Total Protein 7.0 g/dL (6.0-8.3) 12/17/19 18:51 Albumin 3.9 g/dL (3.5-5.0) 12/17/19 18:51 Urine Ketones Negative mg/dL (Negative) 12/17/19 18:04 Urine Blood Negative (Negative) 12/17/19 18:04 Urine Nitrite Negative (Negative) 12/17/19 18:04 Ur Leukocyte Esterase Negative Dc/uL (Negative) 12/17/19 18:04 Urine RBC 0-3 HPF (0-3) 12/17/19 18:04 Urine WBC 0-3 HPF (0-3) 12/17/19 18:04 Ur Squamous Epith Cells 4-6 HPF (0-3) A 12/17/19 18:04 Urine Bacteria None Seen HPF (None Seen) 12/17/19 18:04 - EKG Interpretation EKG: NSR with a rate of 92. No significant changes from last EKG in October. FMR H&P: A/P - Plan 49 yo female with PMH of HFrEF s/p AICD placement, CAD s/p stents x8, HTN, IDDMII, HLD, CKDIII, and depression who is being admitted for syncope likely secondary to medication overuse and JOAQUIN on CKD. Syncope likely 2/2 to medication overuse -holding home diuretics -orthostatics ordered -500 mls bolus given in ED; will reevaluate with AM labs considering pts HFrEF JOAQUIN on CKDIII -Cr. of 2.25 -GFR 23 (typically in 40s or 50s) -Bolus given in ED -holding entresto HFrEF -holding entresto due to above -last echo 02/20 showed EF of 25-30% -contact nail expert, Dr. Matute -no signs of fluid overload, no edema, lungs CTAB CAD s/p stents x8 -continue ticagrelor and aspirin HTN -continue home meds of coreg and isosorbide mononitrate IDDMII -insulin pump -ss insulin ordered -hypoglycemic protocol in place HLD -home meds of ezetimibe and rosuvastatin Depression -home med of sertraline Diet: HH/CC IVF: none PPx: Heparin, pantoprazole Code: Full PCP: Aidan Attending: Dorita Dispo: Admit to tele for observation. Expected length of stay less than 48hrs FMR H&P: Upper Level - Plan Date/Time: 12/17/19 2344 I, Joelle Jauregui, have evaluated this patient and agree with findings/plan as outlined by purchasing intern resident. Pertinent changes/additions are listed here. 49YOF with a PMH notable for HTN, CAD s/p stent placement x8, HFrEF, IDDMII & CKDIII who presented to the ED with a CC of feeling drunk/dizziness as well as low back pain that began earlier today. Patient reports she had a syncopal episode at work earlier today. 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 States she felt lightheaded while a work so she walked back to her truck to sit down & passed out in her truck. She could not recall how long she was out for but just woke up and she was still sitting in her truck. Also could not recall when she was instructed to start taking that much Lasix. States she called her PCP and her nail expert, Dr. Matute who instructed her to go to the ER for evaluation. Denies any fever/chills, N/V/D, or edema. Does report GUERRERO , orthopnea and PND. Also reports a diagnosis of JAEL but never followed up with pulm to get a CPAP. On exam the patients vitals were WNLs and her physical exam was unremarkable other than her being very sleepy during the interview. However, she did receive IV Benadryl in the ER. Her workup was notable for JOAQUIN with a BUN/Cr of 39/2.25 & an eGFR of 23. Her troponin level was also slightly elevated at 0.033. EKG was sinus rhythm with 1st degree AV block. She was therefore admitted to telemetry for continued trending of her troponin levels and treatment for her JOAQUIN. Suspect JOAQUIN is medication induced/iatrogenic from aggressive diuretic therapy. Plan will be to hold diuretics & other nephrotoxic meds & give gentle IVFs overnight with a repeat BMP in the AM. Will continue to trend troponin levels & address PRN if they continue to uptrend. Addendum - Attending - Attending Attestation Date/Time: 12/18/19 6482 I personally evaluated the patient and discussed the management with Dr. Ho on 12/17/2019 I agree with the History, Examination, Assessment and Plan documented above with any addition or exceptions noted below - 49 yo female with h/o HFrEF s/p AICD placement, CAD s/p stents x8, HTN, IDDMII, HLD, CKDIII, and depression who presents to the ED for dizziness/GUZMAN. She reports that she has been feeling dizzy and has had headaches for the past 2 days. While working outside today she became dizzy and believes that she passed out after sitting down in her truck, denies falling or hitting her head. Pt reports that she has been staying hydrated while working out in the heat, estimating 3 L of water intake. During this episode she reports blurry vision and "feeling drunk". She also reports lower back pain. Denies stroke symptoms, fever, cough. Denies any CP, cough, sore throat, fever/chills. PMH/PSH/Meds/SH reviewed and agree with resident's documentation. Afebrile VSS. Exam repeated by me and agree with resident's findings. Labs: WBC=8.4, H/H=13.4/38.5, Zbc=493, Yl=439, K=4.4, Cl=95, CO2=28, BUN/Cr=39/2.25, Looc=859, trop=0.033. EKG- sinus rhythym with 1st degree AV block A/P: 1) Near syncope/syncope- most likely secondary to dehydration; given small fluid bolus in ER, 2) JOAQUIN with CKD stage 3- small bolus given in ER; will recheck labs in AM. Hold diurectics temporarily, 3) HFrEF - continue home meds except diurectics. 4) DM- continue home meds. .
[2019-12-18] MEDS ORDERED: Acetaminophen 325 MG TAB PO PRN (00:08)
[2019-12-18] MEDS ORDERED: Ondansetron ODT 4 MG TAB PO PRN (00:08)
[2019-12-18] MEDS ORDERED: Ondansetron PF 4 MG/2 ML Vial IVP PRN (00:08)
[2019-12-18] MEDS ORDERED: Senokot S 8.6-50 MG TAB PO PRN (00:08)
[2019-12-18] MEDS ORDERED: Dextrose 50% Abboject 50 ML SYRINGE SLOW IVP PRN (00:56)
[2019-12-18] MEDS ORDERED: HumaLOG 300 UNITS/3 ML VIAL SC PRN (00:56)
[2019-12-18] MEDS ORDERED: Dextrose 5% in Water 1,000 ML IV PRN (00:59)
[2019-12-18 02:09] LABS: Troponin I 0.017 ng/mL (< 0.028)
[2019-12-18] MEDS ORDERED: Nitroglycerin 0.4 MG TAB (25 Tab Bottle) SL PRN (03:55)
[2019-12-18 04:50] LABS: #Basophils 0.1 thou/uL (0.0-0.2); #Eosinphils 0.4 thou/uL (0.0-0.7); #Lymphocytes 2.5 thou/uL (1.20-3.40); #Monocytes 0.4 thou/uL (0.11-0.59); #Neutrophils 3.8 thou/uL (1.40-6.50); %Basophils 1.1 % (0.0-1.0); %Lymphocytes 34.6 % (21.0-51.0); %Monocytes 5.1 % (0.0-10.0); %Neutrophils 53.2 % (42.0-75.0); Hemoglobin 13.2 g/dL (12.0-16.0); Mean Corpuscular HGB CONC 32.7 g/dL (32.0-36.0); Mean Corpuscular Hemoglobin 24.5 pg (27.0-31.0); Mean Corpuscular Volume 74.8 fL (78.0-98.0); Mean Platelet Volume 11.2 fL (7.4-10.4); Platelet Count 126 thou/uL (130-400); RBC Distribution Width 15.3 % (11.5-14.5); Red Blood Cell (RBC) Count 5.41 mill/uL (4.20-5.40); White Blood Cell (WBC) Count 7.1 thou/uL (4.8-10.8)
[2019-12-18 05:12] LABS: Anion Gap 14 mmol/L (10-20); BUN (Urea Nitrogen) 40 mg/dL (7.0-18.7); Calc. Creatinine Clearance 0 mL/min (70-130); Calcium 9.1 mg/dL (7.8-10.44); Carbon Dioxide 23 mmol/L (22-29); Chloride 102 mmol/L (98-107); Estimated GFR-MDRD 28; Glucose 301 mg/dL (70-105); Potassium 4.2 mmol/L (3.5-5.1); Sodium 135 mmol/L (136-145)
--- NOTE | 2019-12-18 05:36 | PDOC.FM ---
- Subjective Subjective: Patient complains of bilateral lower back pain that radiates through to her lower abdomen. She denies any pain with urination. Patient explains she had a UTI and was given Bactrim, which she took for three days. She also went to her oss architect who prescribed her a different antibiotic that she has been unable to fill. Patient says her headache is still present and unchanged and her dizziness has improved. - Objective Vital Signs & Weight: BP: lying 157/90, sitting 114/92, standing 122/74, HR 86, RR 15, 100% RA, T 98.2 Result Diagrams: 12/18/19 04:27 12/18/19 04:27 Additional Labs: trop .[id number]>.05>.[id number] Phys Exam - Physical Examination Constitutional: NAD HEENT: PERRLA, moist MMs, sclera anicteric Neck: full ROM Respiratory: no wheezing, no rales, no rhonchi, clear to auscultation bilateral Cardiovascular: RRR, no significant murmur, no rub Gastrointestinal: soft, no distention, positive bowel sounds CVA tenderness bilaterally, suprapubic tenderness Musculoskeletal: pulses present trace edema bilaterally Neurological: moves all 4 limbs Psychiatric: normal affect, A&O x 3 Dx/Plan - Plan Plan: 49 yo female with PMH of HFrEF s/p AICD placement, CAD s/p stents x8, HTN, IDDMII, HLD, CKDIII, and depression who is being admitted for syncope likely secondary to medication overuse and JOAQUIN on CKD. Syncope likely 2/2 to medication overuse -holding home diuretics -orthostatics >20mmHg fall in systolic from lying to sitting -500 mL bolus NS given in ED -Will give another 500mL LR bolus JOAQUIN on CKDIII -Baseline Cr ~1.4, GFR 40-50 -Cr. 2.25>1.89 -GFR 23>28 (typically in 40s or 50s) -500mL NS bolus given in ED -Will give another 500mL LR bolus -holding entresto -Will ask name of oss architect and attempt to contact about diuretic regimen and medication prescribed CVA and suprapubic tenderness suspicious for pyelnophritis -Patient reports UTI last week that was treated with bactrim by PCP. Reports she saw her oss architect the next day who prescribed her something else but it was not filled. -UA in ED was negative -Consider repeat UA this afternoon -Consider home with antibiotics HFrEF -holding entresto due to above -last echo 02/20 showed EF of 25-30% -contact fire lookout, Dr. Matute to ask about more recent echo -no signs of fluid overload, no edema, lungs CTAB CAD s/p stents x8 -continue ticagrelor and aspirin HTN -continue home meds of coreg and isosorbide mononitrate IDDMII -insulin pump -ss insulin ordered -hypoglycemic protocol in place HLD -home meds of ezetimibe and rosuvastatin Depression -home med of sertraline Diet: HH/CC IVF: none PPx: Heparin, pantoprazole Code: Full PCP: Aidan Attending: Dorita Dispo: Admit to tele for observation. Expected length of stay less than 48hrs Addendum - Attending - Attending Attestation Date/Time: 12/18/19 1321 I personally evaluated the patient and discussed the management with Dr. Guerra. I agree with the History, Examination, Assessment and Plan documented above with any addition or exceptions noted below. No CVA tenderness on my exam. back pain c/w MSK. repeat BMP this afternoon and decrease lasix dose. 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 If her renal function is improving, she can possible go home then but likely tomorrow.
[2019-12-18] MEDS ORDERED: Lactated Ringer's 500 ML IV SCH (09:15)
[2019-12-18] MEDS: Carvedilol 3.125 MG TAB PO SCH ×2 (09:29→16:46)
[2019-12-18] MEDS: TICAGRELOR 90 MG TABLET PO SCH ×2 (09:30→21:53)
[2019-12-18] MEDS: Aspirin 81 mg Enteric Coated Tablet PO SCH (09:30)
[2019-12-18] MEDS: Ezetimibe 10 MG TAB PO SCH (09:31)
[2019-12-18] MEDS: Heparin 5,000 UNITS/ML VIAL SC SCH ×3 (09:32→21:53)
[2019-12-18] MEDS: Rosuvastatin 10 MG TAB PO SCH (09:32)
[2019-12-18] MEDS ORDERED: Cyclobenzaprine 10 MG TAB PO SCH (12:00)
[2019-12-18] MEDS ORDERED: Cyclobenzaprine 10 MG TAB ONE (12:06)
--- NOTE | 2019-12-18 14:07 | PDOC.BPN ---
- Brief Progress Note Spoke with Dr. Matute's office - Patient's last ECHO was Apr 2019 with EF 30- 35%. Spoke with Dr. Barrera, he said patient's Cr on December 11 was 1.3. He instructed her not to take Bactrim and agrees with sending her home on 40mg lasix PO qday.
[2019-12-18 14:13] LABS: Anion Gap 11 mmol/L (10-20); BUN (Urea Nitrogen) 34 mg/dL (7.0-18.7); Calc. Creatinine Clearance 0 mL/min (70-130); Calcium 9.2 mg/dL (7.8-10.44); Carbon Dioxide 27 mmol/L (22-29); Chloride 103 mmol/L (98-107); Estimated GFR-MDRD 35; Glucose 281 mg/dL (70-105); Potassium 4.5 mmol/L (3.5-5.1); Sodium 136 mmol/L (136-145)
[2019-12-18] MEDS ORDERED: SUMAtriptan Succinate 50 MG TAB PO PRN (14:49)
--- NOTE | 2019-12-18 16:00 | PDOC.BPN ---
- Brief Progress Note After 2nd 500mL LR bolus, patient's kindey function improved to Cr 1.57 and GFR 35. Patient was still symptomatic complaining of dizziness when she sat up and feeling like she would tip over when she walks to the restroom. Updated orthostatics: supine 130/70 HR 81, sitting 146/70 HR 85, standing 109/59 HR 87. I spoke to Dr. Barrera (patient's management retail intern) who said patient's Cr was 1.3 on Sunday, 12/11. He was in agreement with 40mg lasix qday upon discharge. Patient' s last echo with Dr. Matute's office was Apr 22 with EF 30-35%. Patient will stay overnight and receive 1L LR at 100mL/hr, recheck BMP in AM.
[2019-12-18] MEDS: Lactated Ringer's 1,000 ML IV SCH (16:45)
[2019-12-18] MEDS: Spironolactone 25 MG TAB PO SCH (16:46)
[2019-12-18] MEDS: HumaLOG 300 UNITS/3 ML VIAL SC SCH (18:09)
[2019-12-18] MEDS ORDERED: Topiramate 25 MG TAB PO SCH (21:00)
[2019-12-19] MEDS: Lactated Ringer's 1,000 ML IV SCH ×2 (04:09→11:48)
[2019-12-19 04:49] LABS: Anion Gap 12 mmol/L (10-20); BUN (Urea Nitrogen) 30 mg/dL (7.0-18.7); Calc. Creatinine Clearance 83 mL/min (70-130); Carbon Dioxide 25 mmol/L (22-29); Chloride 104 mmol/L (98-107); Estimated GFR-MDRD 36; Glucose 192 mg/dL (70-105); Potassium 4.1 mmol/L (3.5-5.1); Sodium 137 mmol/L (136-145)
--- NOTE | 2019-12-19 05:50 | PDOC.FM ---
- Subjective Subjective: Ms. Hayes is feeling much better this morning. She denies any headache or dizziness. - Objective Vital Signs & Weight: Vital Signs (12 hours) Temp Pulse Resp BP BP Pulse Ox 12/19/19 03:30 98.0 F 87 18 130/62 97 12/19/19 00:30 97.6 F 85 18 134/63 97 12/18/19 19:50 98.3 F 82 18 134/68 98 Weight Weight 118.841 kg I&O: 12/17/19 12/18/19 12/19/19 06:59 06:59 06:59 Intake Total 195 Balance 195 Result Diagrams: 12/18/19 04:27 12/19/19 04:15 EKG Reviewed by me: Yes (tele: sinus rhythm, HR 80s) Phys Exam - Physical Examination Constitutional: NAD HEENT: PERRLA, moist MMs, sclera anicteric Neck: full ROM Respiratory: no wheezing, no rales, no rhonchi, clear to auscultation bilateral Cardiovascular: RRR, no significant murmur, no rub Gastrointestinal: soft, non-tender, no distention, positive bowel sounds Musculoskeletal: no edema, pulses present Neurological: moves all 4 limbs Psychiatric: normal affect, A&O x 3 Dx/Plan - Plan Plan: 49 yo female with PMH of HFrEF s/p AICD placement, CAD s/p stents x8, HTN, IDDMII, HLD, CKDIII, and depression who is being admitted for syncope likely secondary to medication overuse and JOAQUIN on CKD. Syncope likely 2/2 to medication overuse -holding home diuretics -500 mL bolus NSx2 given -orthostatics >20mmHg fall in systolic from lying to sitting after first bolus on 12/17 -orthostatics >20mmHg fall in systolic from sitting to standing after second bolus on 12/17 -LR 100mL/hr started last night -Patient is asymptomatic this morning JOAQUIN on CKDIII -Cr was 1.3 on Monday 12/11 per patient's precinct commanding officer, Dr. Bruce Palma. 2.25>1.89>1.57>1.53 -GFR 23>28>35>36 (baseline 40-50s) -500mL NS bolusx2 given -holding entresto -LR 100mL/hr started last night -Institutional Asset Manager agreed with once a day dosing of 40mg lasix upon discharge HFrEF -holding entresto due to above -last echo 04/22 showed EF of 30-35%, per Dr. Matute's office -no signs of fluid overload, no edema, lungs CTAB CAD s/p stents x8 -continue ticagrelor and aspirin HTN -continue home meds of coreg and isosorbide mononitrate IDDMII -insulin pump -ss insulin ordered -hypoglycemic protocol in place HLD -home meds of ezetimibe and rosuvastatin Depression -home med of sertraline Diet: HH/CC IVF: none PPx: Heparin, pantoprazole Code: Full PCP: Dafterian Dispo: Admit to tele for observation. Expected length of stay less than 48hrs. Expected discharge today as a result of clinical improvement. Patient to followup with PCP on Sunday. Addendum - Attending - Attending Attestation Date/Time: 12/19/19 1082 I personally evaluated the patient and discussed the management with Dr. Guerra. I agree with the History, Examination, Assessment and Plan documented above with any addition or exceptions noted below. d/c home. f/u pcp and nephro next week.
[2019-12-19] MEDS: Rosuvastatin 10 MG TAB PO SCH (08:43)
[2019-12-19] MEDS: Spironolactone 25 MG TAB PO SCH (08:44)
[2019-12-19] MEDS: Ezetimibe 10 MG TAB PO SCH (08:44)
[2019-12-19] MEDS: Aspirin 81 mg Enteric Coated Tablet PO SCH (08:44)
[2019-12-19] MEDS: Heparin 5,000 UNITS/ML VIAL SC SCH (08:45)
[2019-12-19] MEDS: Carvedilol 3.125 MG TAB PO SCH (08:45)
[2019-12-19] MEDS: TICAGRELOR 90 MG TABLET PO SCH (08:45)
[2019-12-19] MEDS: HumaLOG 300 UNITS/3 ML VIAL SC SCH ×2 (08:46→13:50)
[2019-12-19 12:35] VITALS: BMI 43.6
[2019-12-19 12:49] VITALS: BP 140/83; TEMP 97.7
--- NOTE | 2019-12-21 01:02 | DIS ---
DATE OF ADMISSION: 12/17/2019 DATE OF DISCHARGE: 12/19/2019 RESIDENT: Stewart Guerra MD ADMITTING ATTENDING: Kiersten Kevin MD DISCHARGE ATTENDING: Ridge Cardozo MD CONSULTS: None. PROCEDURES: None. PRIMARY DIAGNOSIS: Acute kidney injury on chronic kidney disease. SECONDARY DIAGNOSIS: Syncope likely secondary to medication overdose. DISCHARGE MEDICATIONS: 1. Sertraline 150 mg p.o. daily. 2. Isosorbide mononitrate 60 mg p.o. daily. 3. Ranexa 1000 mg p.o. b.i.d. 4. Spironolactone 25 mg p.o. b.i.d. 5. Brilinta 90 mg p.o. b.i.d. 6. Coreg 3.125 mg p.o. b.i.d. with meals. 7. Bumex 2 mg p.o. b.i.d. 8. Humalog 15 units subcu t.i.d. 9. Nitroglycerin 0.4 mg p.o. q.5 minutes p.r.n. 10. Aspirin 81 mg p.o. daily. 11. Entresto one tablet p.o. b.i.d. 12. Crestor 20 mg p.o. daily. 13. Pantoprazole 40 mg p.o. 14. Topamax 25 mg p.o. at bedtime. 15. Gmjnaujxno-losflyrecsxcx-bxjmcpxv one tab p.o. q.4 hours p.r.n. 16. Topiramate 25 mg p.o. 17. Ezetimibe 10 mg p.o. daily. 18. Furosemide 40 mg p.o. daily. Discontinued medications: Furosemide 40 mg p.o. b.i.d. HISTORY OF PRESENT ILLNESS AND HOSPITAL COURSE: A 49-year-old female with history of heart failure with reduced ejection fraction, hypertension, insulin-dependent diabetes type2, hyperlipidemia, CKD type 3, presents for syncopal event. The patient was working outside when she became extremely dizzy and lightheaded and sat on her truck to rest. She endorses a headache, but denies any fever, chills, shortness of breath, chest pain, or nausea. She reports losing consciousness while sitting in her truck, unsure of how long and did not fall or hit her head. Reports that she has been taking Lasix 40 mg twice a day and reports drinking approximately 3 L of water per day. She explains she had a UTI last week and was originally treated with Bactrim which she took 3 days until her print decorator gave her a different antibiotic that she did not fill. She reports bilateral lower back pain, but denies dysuria. Urinalysis was negative and physical exam suggested back pain is musculoskeletal in nature. Patient's labs revealed a creatinine of 2.25 and a GFR of 23. She was found to have orthostatic hypotension at this time. Patient's print decorator reports a creatinine of 1.35 days before presentation. April 2019 echo showed an ejection fraction of 30% to 35%. The patient received just 500 mL bolus of normal saline and her creatinine improved to 1.89. She received a second 500 mL bolus. Her creatinine decreasing to 1.57. At this time, the patient continued to report dizziness, headache, and still exhibit orthostatic hypotension. She was placed on Lactated Ringers 100 mL per hours overnight. The next morning, her symptoms improved and creatinine was 1.53. She was discharged home. Told to take 40 mg of Lasix once per day and encouraged to follow up with her PCP and print decorator. DISPOSITION: Stable. DISCHARGE INSTRUCTIONS: 1. Location: Home. 2. Diet: Heart healthy. 3. Activity: As tolerated. 4. Followup: Follow up PCP next week and print decorator in 1 to 2 weeks. Job ID: [id number]
== END 2019-12-19 15:28 | disposition home or self-care (01) ==
LOC: ERS 17:30 → ERHOLD 23:27 → 2NO 12-18 14:09
PROVIDERS: ADMIT Family Medicine; ATTEND Family Medicine
DX: N17.9 Acute kidney failure, unspecified (principal); I13.0 Hypertensive heart and chronic kidney disease with heart failure and stage 1 through stage 4 chronic kidney disease, or unspecified chronic kidney disease; E11.22 Type 2 diabetes mellitus with diabetic chronic kidney disease; N18.3 Chronic kidney disease, stage 3 (moderate); I50.20 Unspecified systolic (congestive) heart failure; I25.10 Atherosclerotic heart disease of native coronary artery without angina pectoris; F32.9 Major depressive disorder, single episode, unspecified; D50.9 Iron deficiency anemia, unspecified; Z79.4 Long term (current) use of insulin; Z79.82 Long term (current) use of aspirin; Z79.899 Other long term (current) drug therapy; Z95.5 Presence of coronary angioplasty implant and graft
CPT/HCPCS: 36415; 36416; 80048; 80053; 81003; 81015; 82550; 82553; 84484; 85025; 93005; 96361; 96372; 96374; G0378; J1200; J1644

== ENCOUNTER 2020-01-03 23:04 | Observation (INO) | payer BC, OTHER ==
[2020-01-03] MEDS ORDERED: Ondansetron ODT 4 MG TAB ONE (23:45)
[2020-01-03 23:54] LABS: #Basophils 0.1 thou/uL (0.0-0.2); #Eosinphils 0.6 thou/uL (0.0-0.7); #Lymphocytes 1.9 thou/uL (1.20-3.40); #Monocytes 0.3 thou/uL (0.11-0.59); #Neutrophils 6.6 thou/uL (1.40-6.50); %Basophils 0.6 % (0.0-1.0); %Eosinophils 5.9 % (0.0-10.0); %Lymphocytes 20.5 % (21.0-51.0); Hemoglobin 13.7 g/dL (12.0-16.0); Mean Corpuscular HGB CONC 33.9 g/dL (32.0-36.0); Mean Corpuscular Hemoglobin 25.8 pg (27.0-31.0); Mean Platelet Volume 10.5 fL (7.4-10.4); Platelet Count 108 thou/uL (130-400); RBC Distribution Width 15.1 % (11.5-14.5); Red Blood Cell (RBC) Count 5.31 mill/uL (4.20-5.40); White Blood Cell (WBC) Count 9.5 thou/uL (4.8-10.8)
--- NOTE | 2020-01-03 23:55 | RAD ---
EXAM: Single view of the chest HISTORY: Chest pain COMPARISON: 10/16/2019 FINDINGS: Single view of the chest shows a normal sized cardiomediastinal silhouette. The pacemaker is unchanged in position. There is no evidence of consolidation, mass, or pleural effusion. The bones are unremarkable IMPRESSION: No evidence of acute cardiopulmonary disease
[2020-01-04 00:16] LABS: ALT (SGPT) 13 U/L (8-55); AST (SGOT) 29 U/L (5-34); Albumin 3.7 g/dL (3.5-5.0); Alkaline Phosphatase 81 U/L (40-110); Anion Gap 15 mmol/L (10-20); BUN (Urea Nitrogen) 25 mg/dL (7.0-18.7); Bilirubin, Total 0.9 mg/dL (0.2-1.2); Calc. Creatinine Clearance 0 mL/min (70-130); Carbon Dioxide 23 mmol/L (22-29); Chloride 104 mmol/L (98-107); Estimated GFR-MDRD 41; Globulin 3.3 g/dL (2.4-3.5); Glucose 294 mg/dL (70-105); Potassium 4.8 mmol/L (3.5-5.1); Sodium 137 mmol/L (136-145)
[2020-01-04] MEDS ORDERED: Aspirin Chewable 81 MG TAB ONE (00:52)
--- NOTE | 2020-01-04 01:23 | PDOC.FPRHP ---
- History of Present Illness Chief Complaint: possible covid infection History of Present Illness: 49YO female with a PMH notable for IDDMII, combined CHF, CKDIII & CAD s /p stents x8 who presented to the ED with multiple complaints that she believed could be 2/2 a COVID-19 infection. Patient reports her symptoms first began on 01/02/20 & consisted primarily of N/V. Reports since she developed a dry cough, sore throat, rhinorrhea & nasal congestion. She reports she also developed central chest tightness with associated SOB which is ultimately what brought her to the ER for evaluation. She also reports decreased PO intake & appetite 2/2 the N/V and occasional streaks of blood in her vomitus today. She denies any fever/chills, diarrhea or known COVID-19 positive contacts. She does endorse GUZMAN as well but also suffers from migraine HAs at home. Reports she has been keeping to herself at home since her recent discharge but has been babysitting her young nieces. ED Course: 324mg ASA & 4mg zofran - Allergies/Adverse Reactions Allergies Allergy/AdvReac Type Severity Reaction Status Date / Time No Known Drug Allergies Allergy Verified 08/24/19 09:20 - Home Medications Medication Instructions Recorded Confirmed Type Sertraline HCl [Zoloft] 150 mg PO DAILY 05/05/18 01/04/20 History Isosorbide Mononitrate [Imdur] 60 mg PO DAILY 11/08/18 01/04/20 History Ranolazine [Ranexa] 1,000 mg PO BID #60 tab 01/07/19 01/04/20 Rx Spironolactone [Aldactone] 25 mg PO BID-WM #60 tab 03/03/19 01/04/20 Rx Ticagrelor [Brilinta] 90 mg PO BID #60 tab 03/03/19 01/04/20 Rx Carvedilol [Coreg] 12.5 mg PO TID 03/27/19 01/04/20 History Bumetanide [Bumex] 1 mg PO BID-AC 04/26/19 01/04/20 History HumaLOG [HumaLOG Vial] 15 unit SC TID-WM 05/12/19 01/04/20 History Nitroglycerin [Nitrostat] 0.4 mg PO Q5MIN PRN #10 tab 07/02/19 01/04/20 Rx Aspirin [Ecotrin Low Strength] 81 mg PO DAILY 07/27/19 01/04/20 History Pantoprazole Sodium 40 mg PO AC 10/17/19 01/04/20 History Rosuvastatin [Crestor] 20 mg PO DAILY 10/17/19 01/04/20 History Topiramate [Topamax] 25 mg PO HS 10/17/19 01/04/20 History Butalb/Acetaminophen/Caffeine 1 tab PO Q4H PRN 12/18/19 01/04/20 History [Yvfofg-Nlslcfgm-Ysoa 50-325-40] Ezetimibe 10 mg PO DAILY 12/18/19 01/04/20 History Sacubitril/Valsartan [Entresto 97 1 tab PO BID 12/18/19 01/04/20 History mg-103 mg Tablet] Ticagrelor [Brilinta] 90 mg PO BID 12/18/19 01/04/20 History Topiramate 25 mg PO HS 12/18/19 01/04/20 History Furosemide 40 mg PO DAILY #30 tablet 12/19/19 01/04/20 Rx Dexamethasone [Decadron] 6 mg PO QAM-WM #8 tab 01/04/20 Rx Ferrous Sulfate 325 mg PO BID 01/04/20 01/04/20 History Ferrous Sulfate [Feosol] 325 mg PO BID-WM #60 tab 01/04/20 Rx - History PMHx: HFrEF s/p AICD placement, CAD s/p stent x8, IDDMII, HTN, HLD, iron deficiency anemia, CKDIII PSHx: Hx stent placement x8, parotid tumor resection FHx: father- DMII, mother- CAD Social: denies tobacco, alcohol, drugs. 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 denies: fever/chills Eyes: denies: eye pain, vision changes ENT: reports: nasal congestion, rhinorrhea, other (sore throat) Respiratory: reports: cough, shortness of breath Cardiovascular: reports: chest pain. denies: edema Gastrointestinal: reports: nausea, vomiting, constipation. denies: diarrhea Genitourinary: reports: other (no hematuria). denies: dysuria Skin: denies: rashes, lesions Musculoskeletal: denies: pain, arthritis/arthralgias Neurological: reports: other (headache). denies: syncope Psychological: reports: anxiety, depression - Vital signs BP: 132/78 HR: 91 RR: 16 Tmax: 98.4F Pox: 98% on RA Wt: 116 kg - Physical Exam Constitutional: NAD, awake, alert and oriented, well developed HEENT: normocephalic and atraumatic, conjunctiva clear, grossly normal vision ( wears glasses), grossly normal hearing, MMM, oropharynx clear, other (wears dentures) Neck: supple, FROM Heart: RRR, normal S1/S2, no murmurs/rubs/gallops, no edema Lungs: CTAB, no respiratory distress, good air movement, no rales/rhonchi, no wheezing, no retractions Abdomen: soft, non-tender, bowel sounds present Musculoskeletal: normal structure, ROM grossly normal Neurological: no focal deficit, CN II-XII intact (grossly) Skin: no rash/lesions, good turgor Heme/Lymphatic: no unusual bruising or bleeding, no purpura, no petechia Psychiatric: normal mood and affect, good judgment and insight, intact recent and remote memory FMR H&P: Results - Labs Result Diagrams: 01/03/20 23:43 01/04/20 04:36 Lab results: WBC 9.5 thou/uL (4.8-10.8) 01/03/20 23:43 Hgb 13.7 g/dL (12.0-16.0) 01/03/20 23:43 Hct 40.3 % (36.0-47.0) 01/03/20 23:43 MCV 76.0 fL (78.0-98.0) L 01/03/20 23:43 Plt Count 108 thou/uL (130-400) L 01/03/20 23:43 Neutrophils % 70.0 % (42.0-75.0) 01/03/20 23:43 Sodium 137 mmol/L (136-145) 01/03/20 23:43 Potassium 4.8 mmol/L (3.5-5.1) 01/03/20 23:43 Chloride 104 mmol/L (98-107) 01/03/20 23:43 Carbon Dioxide 23 mmol/L (22-29) 01/03/20 23:43 BUN 25 mg/dL (7.0-18.7) H 01/03/20 23:43 Creatinine 1.36 mg/dL (0.6-1.1) H 01/03/20 23:43 Glucose 294 mg/dL (70-105) H 01/03/20 23:43 Calcium 9.0 mg/dL (7.8-10.44) 01/03/20 23:43 Total Bilirubin 0.9 mg/dL (0.2-1.2) 01/03/20 23:43 AST 29 U/L (5-34) 01/03/20 23:43 ALT 13 U/L (8-55) 01/03/20 23:43 Alkaline Phosphatase 81 U/L (40-110) 01/03/20 23:43 CK-MB (CK-2) 1.0 ng/mL (0-6.6) 01/03/20 23:43 B-Natriuretic Peptide 351.0 pg/mL (0-100) H 01/03/20 23:43 Serum Total Protein 7.0 g/dL (6.0-8.3) 01/03/20 23:43 Albumin 3.7 g/dL (3.5-5.0) 01/03/20 23:43 - EKG Interpretation EKG: NSR - Radiology Interpretation Chest x-ray Status: image reviewed by me, report reviewed by me (NAF) CT scan - chest Status: pending FMR H&P: A/P - Problem List (1) Suspected COVID-19 virus infection Status: Suspected Code(s): Z20.828 - CONTACT W AND EXPOSURE TO [facility] VIRAL COMMUNICABLE DISEASES (2) Iron deficiency anemia Status: Chronic Code(s): D50.9 - IRON DEFICIENCY ANEMIA, UNSPECIFIED (3) Elevated troponin Status: Chronic Code(s): R79.89 - OTHER SPECIFIED ABNORMAL FINDINGS OF BLOOD CHEMISTRY (4) Heart failure Status: Chronic Code(s): I50.9 - HEART FAILURE, UNSPECIFIED Qualifiers: Heart failure type: combined systolic and diastolic Heart failure chronicity: chronic Qualified Code(s): I50.42 - Chronic combined systolic ( congestive) and diastolic (congestive) heart failure (5) Morbid obesity with BMI of 45.0-49.9, adult Status: Chronic Code(s): E66.01 - MORBID (SEVERE) OBESITY DUE TO EXCESS CALORIES; Z68.42 - BODY MASS INDEX (BMI) 45.0-49.9, ADULT (6) Status post coronary artery stent placement Status: Chronic (7) AICD (automatic cardioverter/defibrillator) present Status: Chronic Code(s): Z95.810 - PRESENCE OF AUTOMATIC (IMPLANTABLE) CARDIAC DEFIBRILLATOR (8) Anxiety and depression Status: Chronic Code(s): F41.9 - ANXIETY DISORDER, UNSPECIFIED; F32.9 - MAJOR DEPRESSIVE DISORDER, SINGLE EPISODE, UNSPECIFIED (9) CAD (coronary artery disease) Status: Chronic Code(s): I25.10 - ATHSCL HEART DISEASE OF [place] CORONARY ARTERY W/O ANG PCTRS Qualifiers: Coronary Disease-Associated Artery/Lesion type: [place] artery Associated angina: with unstable angina (10) CKD (chronic kidney disease) stage 3, GFR 30-59 ml/min Status: Chronic Code(s): N18.3 - CHRONIC KIDNEY DISEASE, STAGE 3 (MODERATE) (11) DM type 2 (diabetes mellitus, type 2) Status: Chronic Qualifiers: Diabetes mellitus retirement insulin use: with predatory animal exterminator use (12) Dyslipidemia Status: Chronic Code(s): E78.5 - HYPERLIPIDEMIA, UNSPECIFIED (13) HTN (hypertension) Status: Chronic Code(s): I10 - ESSENTIAL (PRIMARY) HYPERTENSION Qualifiers: Hypertension type: essential hypertension Qualified Code(s): I10 - Essential (primary) hypertension - Plan 49 yo female with PMH of HFrEF s/p AICD placement, CAD s/p stents x8, HTN, IDDMII, HLD, & CKDIII who presented to the ED for evaluation for cough, GUZMAN & sore throat & was found to have an elevated troponin I level and a positive COVID-19 swab. Suspected COVID-19 infection - Patient reporting multiple s/s c/w COVID-19 infection & was recently hospitalized during which time she could have been exposed. Rapid swab neg in ER on admission but just at start of day #3 of illness on admission so suspect this was a false positive. Will continue routine COVID-19 precautions while inpatient. - Stable on RA currently. - Will add COVID-19 labs to admission labwork & continue to trend D-dimer, LDH & CRP QD. Will start on PO dexamethasone & have PRN O2 available should patient need it for resp support. PRN albuterol as well for wheezing/SOB. - PRN tylenol for fever/pain & zofran for N/V. - BID lovenox for VTE PPX. Elevated troponin I -Patient's trops are always mildly elevated @ baseline & initial trop actually lower than initial on last admission per chart review @ 0.030. - Will trend x1 & if remains stable or downtrends will stop trending. CKDIII -Cr. of 1.36 & eGFR in of 41 (baseline range for both) - Will renally dose meds PRN & avoid nephrotoxic agents HFrEF, not in acute exacerbation - Last echo done in 02/20 showed an EF of 25-30%. Patient is s/p AICD placement. - BNP of 351 but has been higher previously & pt has no s/s of volume overload on exam - Continue home meds, strict I&Os & QD weights CAD s/p stents x8 -continue home ticagrelor, statin, and aspirin HTN -continue home meds IDDMII -Patient has an insulin pump -Mild SS insulin also ordered -hypoglycemic protocol in place HLD -home meds of ezetimibe and rosuvastatin iron deficiency anemia - Will resume QD PO iron supplementation Depression -home med of sertraline Diet: HH/CC IVF: SL PPx: Lovenox, pantoprazole Code: Full PCP: Was [facility] but now recently switched to Dr. Yohana Betts Attending: Erin Dispo: Will admit to tele for observation overnight on covid unit. Expected length of stay less than 48hrs pending clinical course. FMR H&P: Upper Level - Plan Date/Time: 01/04/20 0122 I, [], have evaluated this patient and agree with findings/plan as outlined by real estate internship resident. Pertinent changes/additions are listed here. Addendum - Attending - Attending Attestation Date/Time: 01/04/20 1314 I personally evaluated the patient and discussed the management with Dr. Jauregui. I agree with the History, Examination, Assessment and Plan documented above with any addition or exceptions noted below. The patient was admitted for suspected covid. Rapid test was negative however symptoms are consistent. The patient is not requiring oxygen. She endorses body aches, sore throat and headache. Labs are at pt's baseline.
[2020-01-04 02:32] LABS: SARS-CoV-2 NAA Rapid Test Not Detected (NotDetected)
[2020-01-04] MEDS ORDERED: Acetaminophen 325 MG TAB PO PRN (02:48)
[2020-01-04] MEDS ORDERED: Dextrose 5% in Water 1,000 ML IV PRN (02:48)
[2020-01-04] MEDS ORDERED: HumaLOG 300 UNITS/3 ML VIAL SC PRN ×2 (02:48)
[2020-01-04] MEDS ORDERED: Dextrose 50% Abboject 50 ML SYRINGE SLOW IVP PRN (02:48)
[2020-01-04] MEDS ORDERED: Ondansetron ODT 4 MG TAB PO PRN (02:48)
[2020-01-04] MEDS ORDERED: Senokot S 8.6-50 MG TAB PO PRN (02:48)
[2020-01-04] MEDS ORDERED: Nitroglycerin 0.4 MG TAB (25 Tab Bottle) SL PRN (03:02)
[2020-01-04] MEDS ORDERED: Acetaminophen 500 MG TAB PO PRN (03:05)
[2020-01-04 03:07] VITALS: BMI 42.7
[2020-01-04] MEDS ORDERED: Albuterol Sulfate 2.5 mg/3 ml Neb NEB PRN (03:17)
[2020-01-04] MEDS ORDERED: Fioricet 325/50/40 mg Tablet PO PRN (03:20)
[2020-01-04 05:27] LABS: ALT (SGPT) 11 U/L (8-55); AST (SGOT) 12 U/L (5-34); Albumin 3.6 g/dL (3.5-5.0); Alkaline Phosphatase 73 U/L (40-110); Anion Gap 10 mmol/L (10-20); BUN (Urea Nitrogen) 27 mg/dL (7.0-18.7); Bilirubin, Total 0.9 mg/dL (0.2-1.2); CRP (Inflammatory) Less than 0.50 mg/dL (= or < 0.5); Calc. Creatinine Clearance 101 mL/min (70-130); Calcium 9.1 mg/dL (7.8-10.44); Carbon Dioxide 26 mmol/L (22-29); Chloride 106 mmol/L (98-107); Estimated GFR-MDRD 47; Globulin 2.9 g/dL (2.4-3.5); Glucose 254 mg/dL (70-105); Protein, Total 6.5 g/dL (6.0-8.3); Sodium 138 mmol/L (136-145)
[2020-01-04 05:31] LABS: Troponin I 0.033 ng/mL (< 0.028)
[2020-01-04 05:43] LABS: D-Dimer Test 0.63 *mcg/mL (0.27-0.43)
[2020-01-04] MEDS ORDERED: Bumetanide 1 MG TAB PO SCH ×2 (07:30)
[2020-01-04] MEDS ORDERED: Ferrous Sulfate 325 MG TAB PO SCH (08:00)
[2020-01-04] MEDS ORDERED: HumaLOG 300 UNITS/3 ML VIAL SC SCH (08:00)
[2020-01-04] MEDS ORDERED: Spironolactone 25 MG TAB PO SCH (08:00)
[2020-01-04] MEDS ORDERED: Dexamethasone 4 MG TAB PO SCH (08:00)
[2020-01-04] MEDS ORDERED: Carvedilol 3.125 MG TAB PO SCH (08:00)
[2020-01-04 08:17] LABS: Troponin I 0.016 ng/mL (< 0.028)
[2020-01-04] MEDS ORDERED: Ezetimibe 10 MG TAB PO SCH (09:00)
[2020-01-04] MEDS ORDERED: Rosuvastatin 20 MG TAB PO SCH (09:00)
[2020-01-04] MEDS ORDERED: Aspirin 81 mg Enteric Coated Tablet PO SCH (09:00)
[2020-01-04] MEDS ORDERED: Sacubitril 49 MG/Valsartan 51 MG TABLET PO SCH (09:00)
[2020-01-04] MEDS ORDERED: TICAGRELOR 90 MG TABLET PO SCH (09:00)
[2020-01-04] MEDS ORDERED: Enoxaparin Sodium 40 MG/0.4 ML SYRINGE SC SCH ×2 (09:00)
--- NOTE | 2020-01-04 09:11 | PDOC.BPN ---
- Brief Progress Note Pt observed and VSS on RA. O2 sat 96% on RA. Pt states she feels comfortable going home today as medically she is stable for d/c. Return ER precautions of worsening condition/sob given. Pt understands. Given strict isolation precautions of self quarantine for X10 days form symptom onset. She understands instructions. D/c home on 5 days prednisone. She understands this causes increase in glucose and to increase her insulin during this time. Care plan discussed with Attending Dr. Khan who is in agreement with above plan. PT agreeable to plan.
[2020-01-04 09:53] VITALS: BP 143/72; TEMP 98.1
[2020-01-04] MEDS ORDERED: Topiramate 25 MG TAB PO SCH (21:00)
--- NOTE | 2020-01-05 10:36 | DIS ---
DATE OF ADMISSION: 01/04/2020 DATE OF DISCHARGE: 01/04/2020 RESIDENT: Coleen Ochoa DO. ADMITTING AND DISCHARGE ATTENDING: Dr. Khan CONSULTS: None. PROCEDURES: Chest x-ray, which showed no acute cardiopulmonary disease process and pacemaker unchanged. Cardiac silhouette within normal size. DIAGNOSES: 1. Suspected COVID-19 virus infection. 2. Iron deficiency anemia. 3. Elevated troponin at baseline. 4. Heart failure with reduced ejection fraction. 5. Morbid obesity with BMI of 45 to 49.9. 6. Coronary artery disease, status post x8 stents. 7. Pacemaker in place. 8. Anxiety and depression. 9. Coronary artery disease. 10. Chronic kidney disease, stage 3, stable. 11. Insulin-dependent diabetes mellitus, type 2. 12. Dyslipidemia. 13. Hypertension. DISCHARGE MEDICATIONS: 1. Dexamethasone 6 mg p.o. for 5 days. 2. Ferrous sulfate 325 mg p.o. b.i.d. 3. Aspirin 81 mg p.o. daily. 4. Coreg. 5. Brilinta. 6. Nitrostat. 7. Imdur. 8. Entresto. 9. Bumetanide. 10. Sertraline. 11. Ranexa. 12. Zetia. 13. Crestor. 14. Pantoprazole. 15. Butalbital/acetaminophen/caffeine. HISTORY OF PRESENT ILLNESS/HOSPITAL COURSE: Ms. Yuli Hayes is a 49-year-old female with multiple medical problems including heart failure, reduced ejection fraction with prior CO, CAD, status post 8 stents, hyperlipidemia, hypertension , and insulin-dependent type 2 diabetes. She comes into the Emergency Department with a cough, headache, and sore throat. She had a rapid screen for COVID-19, which was negative. However, due to the sensitivity of the screening test, we are presuming her positive. She did not require oxygen while admitted for observation overnight, saturating oxygen saturation 96% on room air. She was admitted due to her multiple comorbidities. Her CKD is at her baseline with creatinine and GFR. Troponins are also at her baseline level of 0.03 and discharge troponin of 0.16. LDH 385, ferritin 62. BNP 351, which is less than what it was on previous admission in the 600s. Fibrinogen 292. D-dimer 0.63. The patient was started on p.o. Decadron and given one dose of this in the hospital. She felt safe to go home with return precautions of worsening shortness of breath or worsening coronavirus presentation. She understands these return precautions. We also discharged her on 5 more days of p.o. Decadron. She is insulin-dependent diabetic and understands that the steroids will increase her insulin requirement because they raises blood sugars, she understands the increase of insulin at home and is very compliant with that medication and understands how to do so. DISPOSITION: Stable upon discharge, not requiring oxygen, at 96% on room air. DISCHARGE INSTRUCTIONS: 1. Location: Home. 2. Diet: Heart healthy and consistent carb. 3. Activity: As tolerated and rest for the next few days. 4. Followup: With primary care physician, Dr. Yohana Betts at [facility] in [place] in 7 days to 10 days after coronavirus if no longer contagious per CDC regs. Job ID: [id number] MTDD
== END 2020-01-04 11:11 | disposition home or self-care (01) ==
LOC: ERS 23:04 → 2SW 01-04 01:25
PROVIDERS: ADMIT Family Medicine; ATTEND Family Medicine
DX: R11.2 Nausea with vomiting, unspecified (principal); R05 Cough; J02.9 Acute pharyngitis, unspecified; J34.89 Other specified disorders of nose and nasal sinuses; R07.2 Precordial pain; I13.0 Hypertensive heart and chronic kidney disease with heart failure and stage 1 through stage 4 chronic kidney disease, or unspecified chronic kidney disease; E11.22 Type 2 diabetes mellitus with diabetic chronic kidney disease; N18.3 Chronic kidney disease, stage 3 (moderate); I50.42 Chronic combined systolic (congestive) and diastolic (congestive) heart failure; I25.10 Atherosclerotic heart disease of native coronary artery without angina pectoris; F41.9 Anxiety disorder, unspecified; F32.9 Major depressive disorder, single episode, unspecified; D50.9 Iron deficiency anemia, unspecified; E66.01 Morbid (severe) obesity due to excess calories; Z68.42 Body mass index [BMI] 45.0-49.9, adult; Z79.02 Long term (current) use of antithrombotics/antiplatelets; Z79.4 Long term (current) use of insulin; Z79.82 Long term (current) use of aspirin; Z79.899 Other long term (current) drug therapy; Z95.810 Presence of automatic (implantable) cardiac defibrillator; Z20.828 Contact with and (suspected) exposure to other viral communicable diseases
CPT/HCPCS: 36415; 71045; 80053; 82553; 82728; 83615; 83880; 84484; 85025; 85379; 85384; 86140; 93005; 96372; G0378; J1650; J8540; Q0162; U0002

== ENCOUNTER 2020-01-31 13:46 | Inpatient (IN) | payer BC, OTHER ==
[2020-01-31] MEDS ORDERED: Ketorolac Tromethamine 30 MG/ML VIAL ONE (15:15)
[2020-01-31 15:18] LABS: #Basophils 0.1 thou/uL (0.0-0.2); #Eosinphils 0.3 thou/uL (0.0-0.7); #Lymphocytes 1.5 thou/uL (1.20-3.40); #Monocytes 0.3 thou/uL (0.11-0.59); #Neutrophils 6.1 thou/uL (1.40-6.50); %Basophils 0.6 % (0.0-1.0); %Eosinophils 3.2 % (0.0-10.0); %Lymphocytes 18.1 % (21.0-51.0); %Monocytes 3.8 % (0.0-10.0); %Neutrophils 74.3 % (42.0-75.0); Hemoglobin 14.3 g/dL (12.0-16.0); Mean Corpuscular HGB CONC 34.1 g/dL (32.0-36.0); Mean Corpuscular Hemoglobin 26.5 pg (27.0-31.0); Mean Corpuscular Volume 77.8 fL (78.0-98.0); Platelet Count 184 thou/uL (130-400); RBC Distribution Width 14.3 % (11.5-14.5); Red Blood Cell (RBC) Count 5.41 mill/uL (4.20-5.40); White Blood Cell (WBC) Count 8.2 thou/uL (4.8-10.8)
[2020-01-31 15:27] LABS: BHCG - Serum Negative (NEGATIVE); Pregs Control Background? CLEAR/WHITE (CLR/WHITE); Pregs Control Bar Appear? YES (CONTROL BAR)
--- NOTE | 2020-01-31 15:29 | RAD ---
Exam: Chest one view HISTORY:Chest pain Comparison: 01/09/2020 FINDINGS: Cardiac silhouette:Upper normal cardiac silhouette Pacing device: Stable single lead defibrillator Aorta: Unremarkable Pulmonary vessels: Normal Costophrenic angles: Clear LUNGS: No masses or consolidation. Pneumothorax: None Osseous abnormalities: None IMPRESSION: No acute cardiopulmonary process.
[2020-01-31] MEDS ORDERED: Nitroglycerin 2% Ointment 1 INCH/1 GM Packet ONE (15:30)
[2020-01-31 15:40] LABS: ALT (SGPT) 22 U/L (8-55); AST (SGOT) 18 U/L (5-34); Albumin 3.5 g/dL (3.5-5.0); Alkaline Phosphatase 72 U/L (40-110); Anion Gap 14 mmol/L (10-20); BUN (Urea Nitrogen) 16 mg/dL (7.0-18.7); Calc. Creatinine Clearance 0 mL/min (70-130); Calcium 8.9 mg/dL (7.8-10.44); Carbon Dioxide 24 mmol/L (22-29); Chloride 103 mmol/L (98-107); Estimated GFR-MDRD 44; Globulin 2.9 g/dL (2.4-3.5); Glucose 288 mg/dL (70-105); Lipase 42 U/L (8-78); Potassium 3.8 mmol/L (3.5-5.1); Protein, Total 6.4 g/dL (6.0-8.3); Sodium 137 mmol/L (136-145)
--- NOTE | 2020-01-31 16:34 | PDOC.FPRHP ---
- History of Present Illness Chief Complaint: chest pain History of Present Illness: 49yo F with PMH of CAD s/p stent, CKDIII, and HFrEF s/p AICD here for CP over the last two weeks. Worsened today, located in L chest and associated with light -headedness,shortness of breath and nausea. She notes that the pain usually comes on when she feels anxious. Last night was relieved by breathing treatment. CP comes and goes, and lasts for about for 1 hr. Pain not related to exertion. Has cardiology visit on 02/04/20 with Giovani. Kidney doctor: Dr. Barrera ED Course: Nitropaste, toradol - Allergies/Adverse Reactions Allergies Allergy/AdvReac Type Severity Reaction Status Date / Time No Known Drug Allergies Allergy Verified 01/31/20 19:55 - Home Medications Medication Instructions Recorded Confirmed Type Sertraline HCl [Zoloft] 150 mg PO DAILY 05/05/18 01/31/20 History Isosorbide Mononitrate [Imdur] 60 mg PO DAILY 11/08/18 01/31/20 History Ranolazine [Ranexa] 1,000 mg PO BID #60 tab 01/07/19 01/31/20 Rx Spironolactone [Aldactone] 25 mg PO BID-WM #60 tab 03/03/19 01/31/20 Rx Carvedilol [Coreg] 12.5 mg PO BID 03/27/19 01/31/20 History Bumetanide [Bumex] 1 mg PO BID-AC 04/26/19 01/31/20 History Nitroglycerin [Nitrostat] 0.4 mg PO Q5MIN PRN #10 tab 07/02/19 01/31/20 Rx Aspirin [Ecotrin Low Strength] 81 mg PO DAILY 07/27/19 01/31/20 History Pantoprazole Sodium 40 mg PO AC 10/17/19 01/31/20 History Rosuvastatin [Crestor] 20 mg PO DAILY 10/17/19 01/31/20 History Topiramate [Topamax] 25 mg PO HS 10/17/19 01/31/20 History Butalb/Acetaminophen/Caffeine 1 tab PO Q4H PRN 12/18/19 01/31/20 History [Knxxou-Vbccwqsx-Oqsk 50-325-40] Ezetimibe 10 mg PO DAILY 12/18/19 01/31/20 History Sacubitril/Valsartan [Entresto 97 1 tab PO BID 12/18/19 01/31/20 History mg-103 mg Tablet] Ticagrelor [Brilinta] 90 mg PO BID 12/18/19 01/31/20 History Furosemide 40 mg PO DAILY #30 tablet 12/19/19 01/31/20 Rx Ferrous Sulfate [Feosol] 325 mg PO BID-WM #60 tab 01/04/20 01/31/20 Rx - History PMHx: CAD s/p CABG and stent, HFrEF (25-30%) s/p AICD, IDDM, HTN, Migraine GUZMAN, HLD PSHx: 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 - Review of Systems General: denies: fever/chills, weight/appetite/sleep changes Eyes: denies: eye pain, vision changes ENT: denies: nasal congestion, rhinorrhea Respiratory: reports: shortness of breath. denies: cough, congestion Cardiovascular: reports: chest pain. denies: palpitation, edema Gastrointestinal: reports: nausea. denies: vomiting, diarrhea, constipation, abdominal pain Genitourinary: denies: incontinence, dysuria Skin: denies: lesions Musculoskeletal: denies: pain, tenderness Neurological: denies: numbness, syncope Psychological: reports: anxiety. denies: depression - Vital signs BP: 127/75, Pulse: 88, Resp: 18, O2 sat: 95 on RA, WT: 115.7kg - Physical Exam Constitutional: NAD HEENT: normocephalic and atraumatic, PERRLA Neck: supple, FROM Chest: other (chest wall tenderness to palpation on left side) Heart: RRR, no murmurs/rubs/gallops Lungs: CTAB, no respiratory distress Abdomen: soft, bowel sounds present (epigastric tenderness to palpation) Musculoskeletal: normal structure, normal tone, ROM grossly normal Neurological: no focal deficit, normal sensation Skin: no rash/lesions, good turgor Heme/Lymphatic: no unusual bruising or bleeding, no purpura Psychiatric: normal mood and affect, good judgment and insight, intact recent and remote memory FMR H&P: Results - Labs Result Diagrams: 01/31/20 15:10 01/31/20 15:10 Lab results: WBC 8.2 thou/uL (4.8-10.8) 01/31/20 15:10 Hgb 14.3 g/dL (12.0-16.0) 01/31/20 15:10 Hct 42.1 % (36.0-47.0) 01/31/20 15:10 MCV 77.8 fL (78.0-98.0) L 01/31/20 15:10 Plt Count 184 thou/uL (130-400) 01/31/20 15:10 Neutrophils % 74.3 % (42.0-75.0) 01/31/20 15:10 Sodium 137 mmol/L (136-145) 01/31/20 15:10 Potassium 3.8 mmol/L (3.5-5.1) 01/31/20 15:10 Chloride 103 mmol/L (98-107) 01/31/20 15:10 Carbon Dioxide 24 mmol/L (22-29) 01/31/20 15:10 BUN 16 mg/dL (7.0-18.7) 01/31/20 15:10 Creatinine 1.28 mg/dL (0.6-1.1) H 01/31/20 15:10 Glucose 288 mg/dL (70-105) H 01/31/20 15:10 Calcium 8.9 mg/dL (7.8-10.44) 01/31/20 15:10 Total Bilirubin 1.0 mg/dL (0.2-1.2) 01/31/20 15:10 AST 18 U/L (5-34) 01/31/20 15:10 ALT 22 U/L (8-55) 01/31/20 15:10 Alkaline Phosphatase 72 U/L (40-110) 01/31/20 15:10 B-Natriuretic Peptide 68.1 pg/mL (0-100) 01/31/20 15:10 Serum Total Protein 6.4 g/dL (6.0-8.3) 01/31/20 15:10 Albumin 3.5 g/dL (3.5-5.0) 01/31/20 15:10 Lipase 42 U/L (8-78) 01/31/20 15:10 - EKG Interpretation EKG: NS with T wave inversions in v1, v2 and avL, left axis deviation - Radiology Interpretation Chest x-ray Status: report reviewed by me (no acute cardiopulmonary process) FMR H&P: A/P - Problem List (1) Atypical chest pain Current Visit: Yes Status: Acute Code(s): R07.89 - OTHER CHEST PAIN (2) GERD (gastroesophageal reflux disease) Current Visit: No Status: Acute Code(s): K21.9 - GASTRO-ESOPHAGEAL REFLUX DISEASE WITHOUT ESOPHAGITIS (3) CKD (chronic kidney disease) stage 3, GFR 30-59 ml/min Current Visit: No Status: Chronic Code(s): N18.3 - CHRONIC KIDNEY DISEASE, STAGE 3 (MODERATE) (4) Chronic systolic (congestive) heart failure Current Visit: No Status: Chronic Code(s): I50.22 - CHRONIC SYSTOLIC ( CONGESTIVE) HEART FAILURE (5) DM type 2 (diabetes mellitus, type 2) Current Visit: No Status: Chronic Qualifiers: Diabetes mellitus superintendent container terminal insulin use: with mcfp use (6) HTN (hypertension) Current Visit: No Status: Chronic Code(s): I10 - ESSENTIAL (PRIMARY) HYPERTENSION Qualifiers: Hypertension type: essential hypertension Qualified Code(s): I10 - Essential (primary) hypertension - Plan Atypical Chest Pain, likely 2/2 Anxiety vs MSK vs ACS Chest wall tenderness and pain associated with feeling anxious indicates likely anxiety cause, however cannot rule out ACS with history of NSTEMI with 1 stent EKG: NS with T wave inversions in v1, v2 and avL, left axis deviation Trop negative x 1 Heart Score 5 -did not get ASA in ED, will give now -continue Brillinta -continue Imdur and Ranexa -nitro prn - will trend troponins - will get FLP - will check q4hr vitals - will monitor respiratory status - hydroxyzine prn for anxiety - patient has appt with Dr. Matute in 5 days - will admit obs overnight Hx NSTEMI with stent x 1 Dr. Matute radio installer automobile - on home aspirin, coreg, brilinta, nitroglycerin sublingual HFrEF s/p AICD: Last EF 20-25% -appears euvolemic -continue Coreg, Bumex, Spironolactone, and Entresto, furosemide -continue Crestor and Zetia CKD III, chronic, at baseline Cr 1.38, GFR [address] Barrera, nephrology - am BMP - will renally dose medications HTN: -continue home meds and monitor Depression: -continue home meds T2DM: -not on meds at this time -ACHS accuchecks -SSI Dispo: stable, obs, LOS< 2 days DVT PPx: SCDs GI PPx: home protonix Code Status: Full FMR H&P: Upper Level - Plan Date/Time: 01/31/20 1634 IYamile, , have evaluated this patient and agree with findings/plan as outlined by internet sales consultant resident. Pertinent changes/additions are listed here. Pt is a 49 yo F with PMH of CAD s/p stent x8, CKD3 and HFrEF (25-30%) s/p AICD presenting for CP that is intermittent, lasting for about 1h at a time that started last week. She has Nitro at home however has not tried it at home. CP associated with SOB and anxiety, resolved with unk breathing treatment. She received Nitro paste in the ED which resolved her CP. She has cardiology appt on 02/[address] Matute. VS: BP 127/75, P88, R18, T98.4, O295%RA PE: Gen: NAD HEENT: Moist MM, no LAD Heart: RRR, no murmurs or extra sounds. Distal pulses 2+, chest wall ttp Lungs: CTAB, no wheezing. No increased work of breathing Abd: soft, nontender, BS+, no masses or hernias Ext: no cyanosis or edema Skin: no rashes Psych: AOx3 Pertinent Labs/Imaging: BNP: 68.1 Trop: 0.023 BUN 16, Cr 1.28 CXR: wnl EKG: NSR with Twave inversions in V1,V2, and AVL A/P: Atypical CP in the setting of CAD s/p stent: -HEART 5 -troponin neg, continue to trend. -did not get ASA in ED, will give now -continue Brillinta -continue Imdur and Ranexa -nitro prn -FLP, A1c to risk stratify -place in obs overnight HFrEF s/p AICD: -appears euvolemic -continue Coreg, Bumex, Spironolactone, and Entresto -continue Crestor and Zetia HTN: -continue home meds and monitor Depression: -continue home meds CKD3: -at baseline T2DM: -not on meds at this time -ACHS accuchecks -SSI Dispo: stable, obs, LOS< 2 days DVT PPx: SCDs GI PPx: home protonix Code Status: Full Addendum - Attending - Attending Attestation Date/Time: 01/31/202035 I personally evaluated the patient and discussed the management with Dr. Simmons. I agree with the History, Examination, Assessment and Plan documented above with any addition or exceptions noted below. The patient has a known history of cad s/p stents and presents with 2-3 day history of left sided chest pain. Pt states she didn't even think to take her nitroglycerin for the pain but pain did improve when nitropaste was placed in the ER. Pt has some left chest wall tenderness. Cardiac enzymes negative so far. Will monitor on telemetry, continue to trend troponins. Pt does have follow-up on February [address] Matute in the outpt setting.
[2020-01-31 17:48] LABS: Bacteria/HPF 1+ HPF (None Seen); Bilirubin Negative (Negative); Blood, Urine Negative (Negative); Clarity Clear (Clear); Glucose, Urine (Dipstick) 300 mg/dL (Negative); Ketone, Urine Negative (Negative); Leukocyte 75 Leu/uL (Negative); Nitrite Negative (Negative); Protein, Urine (Dipstick) 200 mg/dL (Neg-Trace); RBC/HPF 0-3 HPF (0-3); Specific Gravity, Urine 1.015 (1.002-1.036); Urobilinogen Normal mg/dL (Less than 2); pH, Urine 5.5 (5.0-9.0)
[2020-01-31] MEDS ORDERED: Dextrose 50% Abboject 50 ML SYRINGE SLOW IVP PRN (18:20)
[2020-01-31] MEDS ORDERED: Dextrose 5% in Water 1,000 ML IV PRN (18:20)
[2020-01-31] MEDS ORDERED: Acetaminophen 325 MG TAB PO PRN (18:20)
[2020-01-31] MEDS ORDERED: HumaLOG 300 UNITS/3 ML VIAL SC PRN ×2 (18:20)
[2020-01-31 18:47] LABS: Troponin I 0.019 ng/mL (< 0.028)
[2020-01-31 18:54] VITALS: BMI 42.4
[2020-01-31] MEDS ORDERED: Aspirin 81 mg Enteric Coated Tablet PO SCH (19:45)
[2020-01-31] MEDS ORDERED: Nitroglycerin 0.4 MG TAB (25 Tab Bottle) SL PRN (19:47)
[2020-01-31] MEDS ORDERED: hydrOXYzine 25 MG TAB PO PRN (19:48)
[2020-01-31] MEDS: Topiramate 25 MG TAB PO SCH (21:10)
[2020-01-31] MEDS: Carvedilol 3.125 MG TAB PO SCH (21:11)
[2020-01-31] MEDS: Sacubitril 49 MG/Valsartan 51 MG TABLET PO SCH (21:16)
[2020-01-31] MEDS: TICAGRELOR 90 MG TABLET PO SCH (21:16)
[2020-01-31 21:26] LABS: Cardiac Risk 3.8 (Less than 4.5)
[2020-01-31 21:31] LABS: Troponin I 0.016 ng/mL (< 0.028)
[2020-02-01 05:25] LABS: Hemoglobin A1c 10.4 % (4.0-6.0)
--- NOTE | 2020-02-01 05:30 | PDOC.FPRHP ---
- Allergies/Adverse Reactions Allergies Allergy/AdvReac Type Severity Reaction Status Date / Time No Known Drug Allergies Allergy Verified 01/31/20 22:44 diphenhydramine AdvReac Mild Verified 01/31/20 22:44 [From Benadryl] naproxen AdvReac Mild Verified 01/31/20 22:44 - Home Medications Medication Instructions Recorded Confirmed Type Sertraline HCl [Zoloft] 150 mg PO DAILY 05/05/18 01/31/20 History Isosorbide Mononitrate [Imdur] 60 mg PO DAILY 11/08/18 01/31/20 History Ranolazine [Ranexa] 1,000 mg PO BID #60 tab 01/07/19 01/31/20 Rx Spironolactone [Aldactone] 25 mg PO BID-WM #60 tab 03/03/19 01/31/20 Rx Carvedilol [Coreg] 12.5 mg PO BID 03/27/19 01/31/20 History Bumetanide [Bumex] 1 mg PO BID-AC 04/26/19 01/31/20 History Nitroglycerin [Nitrostat] 0.4 mg PO Q5MIN PRN #10 tab 07/02/19 01/31/20 Rx Aspirin [Ecotrin Low Strength] 81 mg PO DAILY 07/27/19 01/31/20 History Pantoprazole Sodium 40 mg PO AC 10/17/19 01/31/20 History Rosuvastatin [Crestor] 20 mg PO DAILY 10/17/19 01/31/20 History Topiramate [Topamax] 25 mg PO HS 10/17/19 01/31/20 History Butalb/Acetaminophen/Caffeine 1 tab PO Q4H PRN 12/18/19 01/31/20 History [Sizrxp-Fklnjukw-Tnpi 50-325-40] Ezetimibe 10 mg PO DAILY 12/18/19 01/31/20 History Sacubitril/Valsartan [Entresto 97 1 tab PO BID 12/18/19 01/31/20 History mg-103 mg Tablet] Ticagrelor [Brilinta] 90 mg PO BID 12/18/19 01/31/20 History Furosemide 40 mg PO DAILY #30 tablet 12/19/19 01/31/20 Rx Ferrous Sulfate [Feosol] 325 mg PO BID-WM #60 tab 01/04/20 01/31/20 Rx - History PMHx: PSHx: FHx: Social: - Vital signs BP: [] HR: [] RR: [] Tmax: [] Pox: []% on [] Wt: [] FMR H&P: Results - Labs Result Diagrams: 01/31/20 15:10 01/31/20 15:10 Lab results: WBC 8.2 thou/uL (4.8-10.8) 01/31/20 15:10 Hgb 14.3 g/dL (12.0-16.0) 01/31/20 15:10 Hct 42.1 % (36.0-47.0) 01/31/20 15:10 MCV 77.8 fL (78.0-98.0) L 01/31/20 15:10 Plt Count 184 thou/uL (130-400) 01/31/20 15:10 Neutrophils % 74.3 % (42.0-75.0) 01/31/20 15:10 Sodium 137 mmol/L (136-145) 01/31/20 15:10 Potassium 3.8 mmol/L (3.5-5.1) 01/31/20 15:10 Chloride 103 mmol/L (98-107) 01/31/20 15:10 Carbon Dioxide 24 mmol/L (22-29) 01/31/20 15:10 BUN 16 mg/dL (7.0-18.7) 01/31/20 15:10 Creatinine 1.28 mg/dL (0.6-1.1) H 01/31/20 15:10 Glucose 288 mg/dL (70-105) H 01/31/20 15:10 Calcium 8.9 mg/dL (7.8-10.44) 01/31/20 15:10 Total Bilirubin 1.0 mg/dL (0.2-1.2) 01/31/20 15:10 AST 18 U/L (5-34) 01/31/20 15:10 ALT 22 U/L (8-55) 01/31/20 15:10 Alkaline Phosphatase 72 U/L (40-110) 01/31/20 15:10 B-Natriuretic Peptide 68.1 pg/mL (0-100) 01/31/20 15:10 Serum Total Protein 6.4 g/dL (6.0-8.3) 01/31/20 15:10 Albumin 3.5 g/dL (3.5-5.0) 01/31/20 15:10 Lipase 42 U/L (8-78) 01/31/20 15:10 Urine Ketones Negative mg/dL (Negative) 01/31/20 17:00 Urine Blood Negative (Negative) 01/31/20 17:00 Urine Nitrite Negative (Negative) 01/31/20 17:00 Ur Leukocyte Esterase 75 Dc/uL (Negative) A 01/31/20 17:00 Urine RBC 0-3 HPF (0-3) 01/31/20 17:00 Urine WBC 4-6 HPF (0-3) A 01/31/20 17:00 Ur Squamous Epith Cells 4-6 HPF (0-3) A 01/31/20 17:00 Urine Bacteria 1+ HPF (None Seen) A 01/31/20 17:00 FMR H&P: A/P - Problem List (1) Atypical chest pain Current Visit: Yes Status: Acute Code(s): R07.89 - OTHER CHEST PAIN (2) GERD (gastroesophageal reflux disease) Current Visit: No Status: Acute Code(s): K21.9 - GASTRO-ESOPHAGEAL REFLUX DISEASE WITHOUT ESOPHAGITIS (3) CKD (chronic kidney disease) stage 3, GFR 30-59 ml/min Current Visit: No Status: Chronic Code(s): N18.3 - CHRONIC KIDNEY DISEASE, STAGE 3 (MODERATE) (4) Chronic systolic (congestive) heart failure Current Visit: No Status: Chronic Code(s): I50.22 - CHRONIC SYSTOLIC ( CONGESTIVE) HEART FAILURE (5) DM type 2 (diabetes mellitus, type 2) Current Visit: No Status: Chronic Qualifiers: Diabetes mellitus 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 control servicer insulin use: with nursing home use (6) HTN (hypertension) Current Visit: No Status: Chronic Code(s): I10 - ESSENTIAL (PRIMARY) HYPERTENSION Qualifiers: Hypertension type: essential hypertension Qualified Code(s): I10 - Essential (primary) hypertension - Plan Atypical Chest Pain, likely 2/2 Anxiety vs MSK vs ACS Chest wall tenderness and pain associated with feeling anxious indicates likely anxiety cause, however cannot rule out ACS with history of NSTEMI with 1 stent EKG: NS with T wave inversions in v1, v2 and avL, left axis deviation Trop negative x 3 Heart Score 5 -did not get ASA in ED, will give now -continue Brillinta -continue Imdur and Ranexa -nitro prn - will check q4hr vitals - will monitor respiratory status - hydroxyzine prn for anxiety - patient has appt with Dr. Matute in 5 days - will admit obs overnight Hx NSTEMI with stent x 1 Dr. Matute manufacturing lead FLP: TGs 332, Chol 210, LDL 88, HDL 56 - on home aspirin, statin, coreg, brilinta, nitroglycerin sublingual HFrEF s/p AICD: Last EF 20-25% -appears euvolemic -continue Coreg, Bumex, Spironolactone, and Entresto, furosemide -continue Crestor and Zetia CKD III, chronic, at baseline Cr 1.38, GFR [address] Barrera, nephrology - am BMP - will renally dose medications HTN: -continue home meds and monitor Depression: -continue home meds T2DM: Hgb a1c 10.4 -not on meds at this time -ACHS accuchecks -SSI - will need f/u with PCP Dispo: stable, obs, LOS< 2 days DVT PPx: SCDs GI PPx: home protonix Code Status: Full FMR H&P: Upper Level - Plan Date/Time: 02/01/20 0527 I, [], have evaluated this patient and agree with findings/plan as outlined by manager internet retails sales resident. Pertinent changes/additions are listed here.
--- NOTE | 2020-02-01 05:54 | PDOC.FM ---
- Subjective Subjective: Patient is resting comfortably in bed. Notes that she had more chest pain overnight and required a nitro patch which relieved the pain, no associated anxiety with the pain. She states she no longer has pain and only has complaints of reflux. Jonas other symptoms. - Objective MAR Reviewed: Yes Vital Signs & Weight: Vital Signs (12 hours) Temp Pulse Resp BP BP Pulse Ox 02/01/20 04:13 98.0 F 82 14 137/81 98 02/01/20 00:11 116/72 02/01/20 00:06 123/77 01/31/20 23:15 98.4 F 84 16 133/78 94 L 01/31/20 18:30 97.8 F 92 16 137/85 97 01/31/20 18:20 95 Weight Weight 115.666 kg Result Diagrams: 01/31/20 15:10 01/31/20 15:10 Phys Exam - Physical Examination Constitutional: NAD HEENT: PERRLA, moist MMs Respiratory: no wheezing, clear to auscultation bilateral Cardiovascular: RRR, no significant murmur Gastrointestinal: soft, non-tender, positive bowel sounds Musculoskeletal: no edema Neurological: non-focal, normal sensation, moves all 4 limbs Psychiatric: normal affect, A&O x 3 Skin: no rash Dx/Plan (1) Atypical chest pain Code(s): R07.89 - OTHER CHEST PAIN Status: Acute (2) GERD (gastroesophageal reflux disease) Code(s): K21.9 - GASTRO-ESOPHAGEAL REFLUX DISEASE WITHOUT ESOPHAGITIS Status: Acute (3) CKD (chronic kidney disease) stage 3, GFR 30-59 ml/min Code(s): N18.3 - CHRONIC KIDNEY DISEASE, STAGE 3 (MODERATE) Status: Chronic (4) Chronic systolic (congestive) heart failure Code(s): I50.22 - CHRONIC SYSTOLIC (CONGESTIVE) HEART FAILURE Status: Chronic (5) DM type 2 (diabetes mellitus, type 2) Status: Chronic Qualifiers: Diabetes mellitus assisted insulin use: with bed bug exterminator use (6) HTN (hypertension) Code(s): I10 - ESSENTIAL (PRIMARY) HYPERTENSION Status: Chronic Qualifiers: Hypertension type: essential hypertension Qualified Code(s): I10 - Essential (primary) hypertension - Plan Plan: Atypical Chest Pain, 2/2 ACS vs Anxiety vs MSK Chest pain persistent, relieved with nitro patch EKG: NS with T wave inversions in v1, v2 and avL, left axis deviation Trop negative x 3 Heart Score [address] Matute - appointment in 4 days. -restarted home medications -nitro prn -q4hr vitals -monitor respiratory status -hydroxyzine prn for anxiety -Consulted Cards - Dr. Proctor, appreciate recs Hx CAD, UT x 4, multiple stents Dr. Matute director of design FLP: TGs 332, Chol 210, LDL 88, HDL 56 - continue home meds - Cards consulted as above HFrEF s/p AICD: Last Echo Fe with cardiologists, last echo in hospital records 02/2019 EF 25-30% -appears euvolemic -continue home meds CKD III, chronic, at baseline Cr 1.38, GFR [address] Barrera, nephrology - am BMP - will renally dose medications HTN: -continue home meds and monitor Depression: -continue home meds T2DM: Hgb a1c: 10.4 -not on meds at this time -ACHS accuchecks -has insulin pump -SSI -will need f/u with PCP for BG control Dispo: stable, obs, LOS< 2 days DVT PPx: SCDs GI PPx: home protonix Code Status: Full Addendum - Attending - Attending Attestation Date/Time: 02/01/20 7054 I personally evaluated the patient and discussed the management with Dr. Simmons. I agree with the History, Examination, Assessment and Plan documented above with any addition or exceptions noted below. The patient had additional chest pain overnight that improved with nitroglycerin. Will consult cardiology as pt has CAD with stents in place to determine if they want to do a stress test or further intervention to work up chest pain.
[2020-02-01] MEDS: Rosuvastatin 10 MG TAB PO SCH (08:24)
[2020-02-01] MEDS: Ferrous Sulfate 325 MG TAB PO SCH ×2 (08:24→17:01)
[2020-02-01] MEDS: Ezetimibe 10 MG TAB PO SCH (08:24)
[2020-02-01] MEDS: TICAGRELOR 90 MG TABLET PO SCH ×2 (08:26→20:26)
[2020-02-01] MEDS: Carvedilol 3.125 MG TAB PO SCH ×2 (08:27→20:24)
[2020-02-01] MEDS: Spironolactone 25 MG TAB PO SCH ×2 (08:27→17:01)
[2020-02-01] MEDS: Sacubitril 49 MG/Valsartan 51 MG TABLET PO SCH ×2 (08:27→20:26)
[2020-02-01] MEDS: Bumetanide 1 MG TAB PO SCH ×2 (08:28→17:01)
[2020-02-01] MEDS: Furosemide 40 MG TAB PO SCH (08:28)
[2020-02-01 13:43] LABS: SARS-CoV-2 MS2 Positive; SARS-CoV-2 N Gene Negative; SARS-CoV-2 S Gene Negative; SARS-CoV-2 by NAA Not Detected (NotDetected); SARS-CoV-2 orf1ab Negative
--- NOTE | 2020-02-01 15:25 | CON ---
DATE OF CONSULTATION: 02/01/2020 PRIMARY BAND LINING BANDER: Subhash Matute MD REASON FOR CONSULTATION: Chest pain. HISTORY OF PRESENT ILLNESS: Ms. Hayes is a very pleasant 49-year-old female, who comes to the hospital for chest pain. She has significant history of coronary artery disease. She has had several heart catheterizations with stenting to her LAD and diagonal. Most recent here in this hospital was in-stent thrombosis of the LAD. She actually had a repeat catheterization more recently in June 2019 in [place], where she was found to have a reduced EF at 30% and a patent LAD stent and a patent diagonal stent. Second diagonal remained occluded as before filling from retrograde flow. There was a stent on an obtuse marginal that was also patent and the right artery will have minimal disease. For further details on a complete history, please see Dr. Subhash Matute's note from 10/17/2019. She comes in today, complaining of chest pain located in the midsternal area. She describes it as a chest tightness at times. She tells me that this is not anything similar to what she has had before. It is different. She decided to come in as the pain has been getting worse for the last 2 weeks. She currently denies any more chest pain, tightness, or pressure. She states that for the last 2 weeks, she has been unable to lay flat on her back because she gets short-winded and feels like she has to burp. She sits up and then she is able to burp and feel better. She has not been able to sleep because of this either. PAST MEDICAL HISTORY: 1. Coronary artery disease as above. 2. Ischemic cardiomyopathy with last EF at 30%. 3. Presence of an AICD. 4. Hyperlipidemia. 5. Noncompliance with statin in the past. 6. In-stent thrombosis in the past and also possibility of noncompliance with anti-platelet therapy. 7. Type 2 diabetes. 8. Obesity. 9. Hyperlipidemia. 10. Hypertension. 11. History of left bundle-branch block. 12. Anxiety and depression. SURGICAL HISTORY: 1. Multiple heart catheterization and stent placement. 2. Removal of tumor from right side of her neck. 3. Single-chamber AICD placement. OUTPATIENT MEDICATIONS: 1. Bumex 1 mg p.o. b.i.d. 2. Aspirin 81 a day. 3. Carvedilol 12.5 b.i.d. 4. Butalbital, acetaminophen, and caffeine for migraines. 5. Ezetimibe 10 mg a day. 6. Furosemide 40 mg a day. 7. Ferrous sulfate 325 mg b.i.d. 8. Rosuvastatin 20 mg a day. 9. Ranexa 1000 mg p.o. b.i.d. 10. Pantoprazole 40 mg daily. 11. Sublingual nitroglycerin. 12. Imdur 60 mg a day. 13. Topamax 25 mg at bedtime. 14. Brilinta 90 mg b.i.d. 15. Aldactone 25 mg b.i.d. 16. Sertraline 150 mg a day. 17. Entresto 97/103 p.o. b.i.d. ALLERGIES: 1. DIPHENHYDRAMINE. 2. NAPROXEN. SOCIAL HISTORY: No alcohol, tobacco, or drugs. FAMILY HISTORY: Both parents with MIs at early age. REVIEW OF SYSTEMS: Twelve-point review of systems was done and was found to be negative other than stated in the History of Present Illness. PHYSICAL EXAMINATION: VITAL SIGNS: Temperature 98.2, pulse 82, respiratory rate 20, saturating 97% on room air, and blood pressure 123/66. GENERAL: Awake, alert, and oriented x3, in no distress. HEENT: Normocephalic, atraumatic. NECK: Supple. LUNGS: Clear. CARDIOVASCULAR: S1 and S2. No S3 or S4. No murmurs. ABDOMEN: Soft. Positive bowel sounds. EXTREMITIES: No edema. SKIN: Warm and dry. LABORATORY DATA: Laboratory work was reviewed, shows a CBC with a white count of 8, hemoglobin 14, hematocrit 42, and platelet count of 184. Chemistries show sodium of 137, potassium of 3.8, chloride 103, carbon dioxide 24, anion gap of 14, BUN of 16, creatinine is mildly elevated at 1.28, GFR of 44, and glucose of 288. Calcium, total bilirubin, AST, ALT, alkaline phosphatase are all normal. Troponin was 0.02, 0.01, 0.01. BNP was 68. Albumin of 3.5. test was negative. Lipase was 42. UA was unremarkable except for 1+ bacteria and 4 to 6 white cells: COVID-19 PCR was not detected. IMAGING DATA: Chest x-ray showed no acute cardiopulmonary process. ASSESSMENT AND PLAN: 1. Chest pain. 2. History of coronary artery disease. 3. Ischemic cardiomyopathy. 4. Presence of single-chamber automatic implantable cardioverter-defibrillator. PLAN: 1. We will further risk stratify with a stress test. Currently, her pain is atypical, not the same as what she has had before. She also has completely negative troponins and normal BNP. 2. We will interrogate her AICD. 3. She was recently admitted here about 4 weeks ago for presumed COVID-19 infection. Even though, her test was negative, we will repeat test today, it was negative as well. 4. We will continue her home regimen. 5. Further recommendations per results of stress testing. Thank you for letting us to participate in the care of your patient. Dr. Matute, her primary rubbish collection supervisor will follow up in the morning. Job ID: [id number]
[2020-02-01] MEDS: Topiramate 25 MG TAB PO SCH (20:24)
--- NOTE | 2020-02-02 06:14 | PDOC.FM ---
- Subjective Subjective: Patient is resting comfortably in bed. Notes she is still burping frequently, but denies chest pain or shortness of breath overnight. No acute events overnight. NPO for stress test today. - Objective MAR Reviewed: Yes Vital Signs & Weight: Vital Signs (12 hours) Temp Pulse Resp BP Pulse Ox 02/02/20 04:42 98 02/02/20 03:27 128/69 02/02/20 03:23 98.5 F 89 17 131/74 98 02/01/20 23:18 82 15 123/73 98 02/01/20 19:24 98.6 F 82 20 116/68 97 Weight Weight 115.666 kg I&O: 01/31/20 02/01/20 02/02/20 06:59 06:59 06:59 Intake Total 450 1730 Output Total 100 2700 Balance 350 -970 Result Diagrams: 01/31/20 15:10 01/31/20 15:10 Phys Exam - Physical Examination Constitutional: NAD HEENT: PERRLA, moist MMs Respiratory: no wheezing, clear to auscultation bilateral Cardiovascular: RRR, no significant murmur Gastrointestinal: soft, non-tender, positive bowel sounds Musculoskeletal: no edema Neurological: non-focal, normal sensation, moves all 4 limbs Psychiatric: normal affect, A&O x 3 Skin: no rash Dx/Plan (1) Atypical chest pain Code(s): R07.89 - OTHER CHEST PAIN Status: Acute (2) GERD (gastroesophageal reflux disease) Code(s): K21.9 - GASTRO-ESOPHAGEAL REFLUX DISEASE WITHOUT ESOPHAGITIS Status: Acute (3) CKD (chronic kidney disease) stage 3, GFR 30-59 ml/min Code(s): N18.3 - CHRONIC KIDNEY DISEASE, STAGE 3 (MODERATE) Status: Chronic (4) Chronic systolic (congestive) heart failure Code(s): I50.22 - CHRONIC SYSTOLIC (CONGESTIVE) HEART FAILURE Status: Chronic (5) DM type 2 (diabetes mellitus, type 2) Status: Chronic Qualifiers: Diabetes mellitus care home insulin use: with care home use (6) HTN (hypertension) Code(s): I10 - ESSENTIAL (PRIMARY) HYPERTENSION Status: Chronic Qualifiers: Hypertension type: essential hypertension Qualified Code(s): I10 - Essential (primary) hypertension - Plan Plan: Atypical Chest Pain, 2/2 ACS vs Anxiety vs MSK EKG: NS with T wave inversions in v1, v2 and avL, left axis deviation Trop negative x 3, Heart Score [address] Matute - appointment in 3 days. -restarted home medications -nitro prn -q4hr vitals -monitor respiratory status -hydroxyzine prn for anxiety -Consulted Cards - Dr. Proctor, appreciate recs - ordered echo - stress test today, patient NPO - Interrogate AICD Hx CAD, [place] x 4, multiple stents Dr. 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 Barrera, nephrology - am BMP - will renally dose medications HTN: -continue home meds and monitor Depression: -continue home meds T2DM: Hgb a1c: 10.4 -not on meds at this time -ACHS accuchecks -has insulin pump -SSI -will need f/u with PCP for BG control Dispo: stable, obs, LOS< 2 days DVT PPx: SCDs GI PPx: home protonix Code Status: Full Addendum - Attending - Attending Attestation Date/Time: 02/02/20 9989 I personally evaluated the patient and discussed the management with Dr. Simmons. I agree with the History, Examination, Assessment and Plan documented above with any addition or exceptions noted below. Patient with severe CAD here with chest pain. Stress test ordered and cardiology consulted. Suspect medical mgmt but will await recs. ACS ruled out.
[2020-02-02] MEDS: Rosuvastatin 10 MG TAB PO SCH (14:56)
[2020-02-02] MEDS: Ezetimibe 10 MG TAB PO SCH (14:56)
[2020-02-02] MEDS: Bumetanide 1 MG TAB PO SCH ×2 (14:57→18:40)
[2020-02-02] MEDS: Sacubitril 49 MG/Valsartan 51 MG TABLET PO SCH ×2 (14:57→21:07)
[2020-02-02] MEDS: Furosemide 40 MG TAB PO SCH (14:57)
[2020-02-02] MEDS: Ferrous Sulfate 325 MG TAB PO SCH ×2 (14:58→18:39)
[2020-02-02] MEDS: Spironolactone 25 MG TAB PO SCH ×2 (14:58→18:47)
[2020-02-02] MEDS: TICAGRELOR 90 MG TABLET PO SCH ×2 (14:58→21:06)
[2020-02-02] MEDS ORDERED: Aspirin 81 mg Enteric Coated Tablet PO SCH (16:30)
[2020-02-02] MEDS ORDERED: Mag-Al 1200 mg/1200 mg/30 ML UDCUP PO PRN (16:34)
[2020-02-02] MEDS ORDERED: Calcium Carbonate 500 MG ChewTAB PO PRN (16:35)
[2020-02-02] MEDS: Topiramate 25 MG TAB PO SCH (21:05)
[2020-02-02] MEDS: Carvedilol 3.125 MG TAB PO SCH (21:06)
[2020-02-03] MEDS: Colchicine 0.6 MG TAB PO SCH ×3 (00:13→20:05)
--- NOTE | 2020-02-03 05:22 | PDOC.FM ---
- Subjective Subjective: Patient is resting comfortably in bed. Notes complete resolution of her chest pain overnight. No shortness of breath. Patient's insulin pump apparently ran out of insulin last night. Patient's friend bringing more. - Objective MAR Reviewed: Yes Vital Signs & Weight: Vital Signs (12 hours) Temp Pulse Resp BP Pulse Ox 02/03/20 04:20 97.6 F 85 16 135/66 97 02/03/20 03:48 98 02/03/20 00:13 89 159/83 H 02/02/20 19:24 97.9 F 82 16 107/52 L 95 Weight Weight 117.571 kg I&O: 02/01/20 02/02/20 02/03/20 06:59 06:59 06:59 Intake Total 450 1730 Output Total 100 2700 500 Balance 350 -970 -500 Result Diagrams: 02/03/20 05:36 02/03/20 05:36 Phys Exam - Physical Examination Constitutional: NAD HEENT: PERRLA, moist MMs Respiratory: no wheezing, clear to auscultation bilateral Cardiovascular: RRR, no significant murmur Gastrointestinal: soft, non-tender, positive bowel sounds Musculoskeletal: no edema, pulses present Neurological: non-focal, normal sensation, moves all 4 limbs Psychiatric: normal affect, A&O x 3 Skin: no rash Dx/Plan (1) Atypical chest pain Code(s): R07.89 - OTHER CHEST PAIN Status: Acute (2) GERD (gastroesophageal reflux disease) Code(s): K21.9 - GASTRO-ESOPHAGEAL REFLUX DISEASE WITHOUT ESOPHAGITIS Status: Acute (3) CKD (chronic kidney disease) stage 3, GFR 30-59 ml/min Code(s): N18.3 - CHRONIC KIDNEY DISEASE, STAGE 3 (MODERATE) Status: Chronic (4) Chronic systolic (congestive) heart failure Code(s): I50.22 - CHRONIC SYSTOLIC (CONGESTIVE) HEART FAILURE Status: Chronic (5) DM type 2 (diabetes mellitus, type 2) Status: Chronic Qualifiers: Diabetes mellitus residential insulin use: with salvage determiner use (6) HTN (hypertension) Code(s): I10 - ESSENTIAL (PRIMARY) HYPERTENSION Status: Chronic Qualifiers: Hypertension type: essential hypertension Qualified Code(s): I10 - Essential (primary) hypertension - Plan Plan: Atypical Chest Pain, Likely 2/2 Pericarditis vs Anxiety, r/o ACS EKG: NS with T wave inversions in v1, v2 and avL, left axis deviation Trop negative x 3, Heart Score [address] Matute - appointment in 2 days. Echo: LV function severely depressed, EF 25-30%, global dyskinesia -restarted home medications -nitro prn -q4hr vitals -monitor respiratory status -hydroxyzine prn for anxiety -Consulted Cards - Dr. Proctor/[place], appreciate recs - Spoke with Dr. 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 Barrera, nephrology - am BMP - will renally dose medications HTN: -continue home meds and monitor Depression: -continue home meds T2DM: Hgb a1c: 10.4 -not on meds at this time -ACHS accuchecks -has insulin pump -SSI -will need f/u with PCP for BG control Dispo: stable, obs, LOS< 2 days DVT PPx: SCDs GI PPx: home protonix Code Status: Full Addendum - Attending - Attending Attestation Date/Time: 02/03/20 1121 I personally evaluated the patient and discussed the management with Dr. Simmons. I agree with the History, Examination, Assessment and Plan documented above with any addition or exceptions noted below. Patient with resolution of pain with Colchicine. Cardiology on board. Awaiting stress testing result but anticipate abnormal given her history. Renal function with a decline overnight, assume at this time based on HTN uncontrolled as well as pre-renal from decreased PO intake. Continue to monitor but hopeful to discharge either today or tomorrow.
[2020-02-03 05:54] LABS: #Eosinphils 0.3 thou/uL (0.0-0.7); #Lymphocytes 1.9 thou/uL (1.20-3.40); #Monocytes 0.4 thou/uL (0.11-0.59); #Neutrophils 5.5 thou/uL (1.40-6.50); %Basophils 0.5 % (0.0-1.0); %Eosinophils 3.5 % (0.0-10.0); %Lymphocytes 23.7 % (21.0-51.0); %Monocytes 4.9 % (0.0-10.0); %Neutrophils 67.3 % (42.0-75.0); Hemoglobin 13.7 g/dL (12.0-16.0); Mean Corpuscular HGB CONC 32.9 g/dL (32.0-36.0); Mean Corpuscular Hemoglobin 25.8 pg (27.0-31.0); Mean Corpuscular Volume 78.4 fL (78.0-98.0); Platelet Count 186 thou/uL (130-400); RBC Distribution Width 14.4 % (11.5-14.5); Red Blood Cell (RBC) Count 5.32 mill/uL (4.20-5.40); White Blood Cell (WBC) Count 8.2 thou/uL (4.8-10.8)
[2020-02-03 06:16] LABS: ALT (SGPT) 19 U/L (8-55); AST (SGOT) 13 U/L (5-34); Albumin 3.5 g/dL (3.5-5.0); Alkaline Phosphatase 63 U/L (40-110); Anion Gap 16 mmol/L (10-20); BUN (Urea Nitrogen) 23 mg/dL (7.0-18.7); Bilirubin, Total 0.8 mg/dL (0.2-1.2); Calc. Creatinine Clearance 70 mL/min (70-130); Calcium 8.9 mg/dL (7.8-10.44); Carbon Dioxide 21 mmol/L (22-29); Chloride 103 mmol/L (98-107); Estimated GFR-MDRD 30; Globulin 2.7 g/dL (2.4-3.5); Glucose 203 mg/dL (70-105); Potassium 3.9 mmol/L (3.5-5.1); Protein, Total 6.2 g/dL (6.0-8.3); Sodium 136 mmol/L (136-145)
[2020-02-03] MEDS: TICAGRELOR 90 MG TABLET PO SCH ×2 (10:34→20:08)
[2020-02-03] MEDS: Bumetanide 1 MG TAB PO SCH ×2 (10:35→16:56)
[2020-02-03] MEDS: Sacubitril 49 MG/Valsartan 51 MG TABLET PO SCH (10:35)
[2020-02-03] MEDS: Ferrous Sulfate 325 MG TAB PO SCH ×2 (10:35→16:56)
[2020-02-03] MEDS: Aspirin 81 mg Enteric Coated Tablet PO SCH (10:36)
[2020-02-03] MEDS: Rosuvastatin 10 MG TAB PO SCH (10:36)
[2020-02-03] MEDS: Carvedilol 3.125 MG TAB PO SCH ×2 (10:37→20:05)
[2020-02-03] MEDS: Ezetimibe 10 MG TAB PO SCH (10:38)
[2020-02-03] MEDS: Spironolactone 25 MG TAB PO SCH ×2 (10:38→16:55)
[2020-02-03] MEDS: Furosemide 40 MG TAB PO SCH (10:38)
--- NOTE | 2020-02-03 10:43 | NM ---
NUCLEAR MEDICINE CARDIAC MYOCARDIAL PERFUSION SPECT EJECTION FRACTION STUDY WALL MOTION CINE: DATE: 02/03/2020 HISTORY: 49-year-old female with dyslipidemia, diabetes mellitus, hypertension, coronary artery disease, and p rior myocardial infarction, presents with acute chest pain. Dr. Delgado reported the reversible ischemia by telephone to nurse Ilana Villeda RN, at 10:38 AM . She was instructed to notify the attending physician as soon as possible. TECHNIQUE: Number of days: 2 Rest study: Technetium 99m-sestamibi (Cardiolite) dose: 31.7 mCi Pharmacologic stress: Adenosine dose: 64.9 mg Stress study: Technetium 99m-sestamibi (Cardiolite) dose: 27.0 mCi FINDINGS: CARDIAC (MYOCARDIAL PERFUSION) SPECT In addition to the previously demonstrated moderately large region of anterior wall scar, also involv ing apex, demonstrated on the 11/10/2018 study, there is a new finding of large regions of reversible perfusion defects involving the anterior wall, consistent with gustavo-infarct reversible ischemia. There is chamber dilation. EJECTION FRACTION STUDY Left ventricular EF = 21 % This as significantly worsened since the prior study. WALL MOTION CINE Severe global hypokinesis IMPRESSION: 1) positive study: moderate to large region of gustavo-infarct reversible ischemia involving anterior wa ll. 2) very low left ventricular ejection fraction of 21%
[2020-02-03] MEDS: HumaLOG 300 UNITS/3 ML VIAL SC PRN ×2 (13:32→16:54)
[2020-02-03 16:28] LABS: Anion Gap 14 mmol/L (10-20); BUN (Urea Nitrogen) 23 mg/dL (7.0-18.7); Calc. Creatinine Clearance 73 mL/min (70-130); Carbon Dioxide 22 mmol/L (22-29); Chloride 100 mmol/L (98-107); Estimated GFR-MDRD 32; Glucose 302 mg/dL (70-105); Potassium 4.3 mmol/L (3.5-5.1); Sodium 132 mmol/L (136-145)
[2020-02-03] MEDS ORDERED: Communication Order-Pharmacy FS SCH (16:30)
[2020-02-03] MEDS: Sodium Chloride 0.9% 1,000 ML IV SCH ×2 (16:55→22:07)
[2020-02-03] MEDS: Topiramate 25 MG TAB PO SCH (20:07)
[2020-02-04 05:18] LABS: Anion Gap 15 mmol/L (10-20); BUN (Urea Nitrogen) 22 mg/dL (7.0-18.7); Calc. Creatinine Clearance 80 mL/min (70-130); Carbon Dioxide 21 mmol/L (22-29); Chloride 103 mmol/L (98-107); Estimated GFR-MDRD 35; Glucose 225 mg/dL (70-105); Potassium 3.9 mmol/L (3.5-5.1); Sodium 135 mmol/L (136-145)
--- NOTE | 2020-02-04 06:16 | PDOC.FM ---
- Subjective Subjective: Patient resting comfortably in bed. Reports no chest pain or shortness of breath overnight. She spoke with Dr. Matute and is aware of the plan to got to the slab polisher today. - Objective MAR Reviewed: Yes Vital Signs & Weight: Vital Signs (12 hours) Temp Pulse Resp BP Pulse Ox 02/04/20 03:23 97.7 F 81 16 138/82 96 02/03/20 23:18 98.5 F 82 16 144/86 H 99 02/03/20 21:00 97 02/03/20 19:36 98.5 F 82 14 118/67 97 02/03/20 19:33 98.3 F 82 18 101/56 L 95 02/03/20 18:48 97.4 F L 84 18 102/55 L 97 Weight Weight 117.571 kg I&O: 02/02/20 02/03/20 02/04/20 06:59 06:59 06:59 Intake Total 1730 1500 230 Output Total 2700 2300 565 Balance -970 -800 -335 Result Diagrams: 02/03/20 05:36 02/04/20 04:27 Phys Exam - Physical Examination Constitutional: NAD HEENT: PERRLA, moist MMs Respiratory: no wheezing, clear to auscultation bilateral Cardiovascular: RRR, no significant murmur Gastrointestinal: soft, non-tender, positive bowel sounds Musculoskeletal: no edema Neurological: non-focal, normal sensation, moves all 4 limbs Psychiatric: normal affect, A&O x 3 Skin: no rash Dx/Plan (1) Atypical chest pain Code(s): R07.89 - OTHER CHEST PAIN Status: Acute (2) GERD (gastroesophageal reflux disease) Code(s): K21.9 - GASTRO-ESOPHAGEAL REFLUX DISEASE WITHOUT ESOPHAGITIS Status: Acute (3) CKD (chronic kidney disease) stage 3, GFR 30-59 ml/min Code(s): N18.3 - CHRONIC KIDNEY DISEASE, STAGE 3 (MODERATE) Status: Chronic (4) Chronic systolic (congestive) heart failure Code(s): I50.22 - CHRONIC SYSTOLIC (CONGESTIVE) HEART FAILURE Status: Chronic (5) DM type 2 (diabetes mellitus, type 2) Status: Chronic Qualifiers: Diabetes mellitus usp insulin use: with usp use (6) HTN (hypertension) Code(s): I10 - ESSENTIAL (PRIMARY) HYPERTENSION Status: Chronic Qualifiers: Hypertension type: essential hypertension Qualified Code(s): I10 - Essential (primary) hypertension - Plan Plan: Atypical Chest Pain, Likely 2/2 Pericarditis vs Anxiety, r/o ACS EKG: NS with T wave inversions in v1, v2 and avL, left axis deviation Trop negative x 3, Heart Score [address] Matute - appointment in 2 days. Echo: LV function severely depressed, EF 25-30%, global dyskinesia -restarted home medications -nitro prn -q4hr vitals -monitor respiratory status -hydroxyzine prn for anxiety -Consulted Cards - Dr. Proctor/[place], appreciate recs - Spoke with Dr. Matute 02/01, thinks etiology likely inflammation of the pericardium, - started Colchicine with improvement of symptoms, indicates likely pericarditis - Stress test 2/2: moderate to large region of gustavo-infarct reversible ischemia involving anterior wall - Dr. 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 Barrera, nephrology - am BMPs - will renally dose medications HTN: -continue home meds and monitor Depression: -continue home meds T2DM: Hgb a1c: 10.4 -not on meds at this time -ACHS accuchecks -has insulin pump, however ran out of insulin, daughter will bring -Aggressive SSI -will need f/u with PCP for BG control Dispo: stable, obs, LOS< 2 days DVT PPx: SCDs GI PPx: home protonix Code Status: Full Addendum - Attending - Attending Attestation Date/Time: 02/04/20 1052 I personally evaluated the patient and discussed the management with Dr. Simmons. I agree with the History, Examination, Assessment and Plan documented above with any addition or exceptions noted below. Patient feeling well. Had LHC this morning, awaiting report and further recs from Cardiology.
[2020-02-04] MEDS ORDERED: Heparin 10,000 UNITS/ 10 ML VIAL ONE (07:38)
[2020-02-04] MEDS ORDERED: Lidocaine 1% (PF) 30 ML VIAL ONE (07:39)
[2020-02-04] MEDS ORDERED: Fentanyl 100 MCG/2 ML VIAL ONE (08:19)
[2020-02-04] MEDS ORDERED: Midazolam HCl 2 mg/2 ml Vial ONE (08:19)
[2020-02-04] MEDS ORDERED: Protamine Sulfate 50 MG/5 ML VIAL ONE (08:43)
[2020-02-04] MEDS ORDERED: Nitroglycerin 0.4 MG TAB (25 Tab Bottle) SL PRN (09:05)
[2020-02-04] MEDS ORDERED: Sodium Chloride 0.9% 200 ML IV PRN (09:05)
[2020-02-04] MEDS ORDERED: Acetaminophen/Codeine 30-300mg Tablet PO PRN ×2 (09:05)
[2020-02-04] MEDS ORDERED: Sodium Chloride 0.9% 1,000 ML IV SCH (09:06)
[2020-02-04] MEDS: Spironolactone 25 MG TAB PO SCH (10:40)
[2020-02-04] MEDS: Rosuvastatin 10 MG TAB PO SCH (10:40)
[2020-02-04] MEDS: Bumetanide 1 MG TAB PO SCH (10:40)
[2020-02-04] MEDS: Carvedilol 3.125 MG TAB PO SCH ×2 (11:09→21:37)
[2020-02-04] MEDS: Colchicine 0.6 MG TAB PO SCH ×2 (11:10→21:38)
[2020-02-04] MEDS: Ferrous Sulfate 325 MG TAB PO SCH ×2 (11:10→16:26)
[2020-02-04] MEDS: Aspirin 81 mg Enteric Coated Tablet PO SCH (11:11)
[2020-02-04] MEDS: Ezetimibe 10 MG TAB PO SCH (11:11)
[2020-02-04] MEDS: TICAGRELOR 90 MG TABLET PO SCH ×2 (11:13→21:38)
[2020-02-04] MEDS ORDERED: Iopamidol 370 76% 100 ML VIAL ONE (11:22)
[2020-02-04] MEDS: Sodium Chloride 0.9% 1,000 ML IV SCH (14:23)
[2020-02-04] MEDS: HumaLOG 300 UNITS/3 ML VIAL SC PRN (18:20)
[2020-02-04] MEDS: Rosuvastatin 20 MG TAB PO SCH (21:37)
[2020-02-04] MEDS: Topiramate 25 MG TAB PO SCH (21:55)
[2020-02-05] MEDS: Sodium Chloride 0.9% 1,000 ML IV SCH (04:19)
[2020-02-05 04:53] LABS: Anion Gap 12 mmol/L (10-20); BUN (Urea Nitrogen) 18 mg/dL (7.0-18.7); Calc. Creatinine Clearance 90 mL/min (70-130); Calcium 8.8 mg/dL (7.8-10.44); Carbon Dioxide 21 mmol/L (22-29); Chloride 106 mmol/L (98-107); Estimated GFR-MDRD 40; Glucose 183 mg/dL (70-105); Potassium 4.3 mmol/L (3.5-5.1); Sodium 135 mmol/L (136-145)
--- NOTE | 2020-02-05 05:52 | PDOC.FM ---
- Subjective Subjective: Patient resting comfortably in bed. Reports no chest pain or shortness of breath overnight. No other complaints. - Objective MAR Reviewed: Yes Vital Signs & Weight: Vital Signs (12 hours) Temp Pulse Resp BP Pulse Ox 02/05/20 03:35 98.3 F 82 16 152/78 H 98 02/04/20 19:40 98.4 F 80 16 124/69 98 Weight Weight 117.571 kg I&O: 02/03/20 02/04/20 02/05/20 06:59 06:59 06:59 Intake Total 1500 230 900 Output Total 2300 565 Balance -800 -335 900 Result Diagrams: 02/05/20 06:26 02/05/20 04:15 Phys Exam - Physical Examination Constitutional: NAD HEENT: PERRLA, moist MMs Respiratory: no wheezing, clear to auscultation bilateral Cardiovascular: RRR, no significant murmur Gastrointestinal: soft, non-tender, positive bowel sounds trace pitting edema Neurological: non-focal, normal sensation, moves all 4 limbs Psychiatric: normal affect, A&O x 3 Skin: no rash Dx/Plan (1) Atypical chest pain Code(s): R07.89 - OTHER CHEST PAIN Status: Acute (2) GERD (gastroesophageal reflux disease) Code(s): K21.9 - GASTRO-ESOPHAGEAL REFLUX DISEASE WITHOUT ESOPHAGITIS Status: Acute (3) CKD (chronic kidney disease) stage 3, GFR 30-59 ml/min Code(s): N18.3 - CHRONIC KIDNEY DISEASE, STAGE 3 (MODERATE) Status: Chronic (4) Chronic systolic (congestive) heart failure Code(s): I50.22 - CHRONIC SYSTOLIC (CONGESTIVE) HEART FAILURE Status: Chronic (5) DM type 2 (diabetes mellitus, type 2) Status: Chronic Qualifiers: Diabetes mellitus 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 Matute Echo: LV function severely depressed, EF 25-30%, global dyskinesia -restarted home medications -nitro prn -q4hr vitals -monitor respiratory status -hydroxyzine prn for anxiety -Consulted Cards - Dr. Proctor/Giovani, appreciate recs - Spoke with Dr. Matute 02/01, thinks etiology likely inflammation of the pericardium - Started Colchicine with improvement of symptoms Stress test 07/06: moderate to large region of gustavo-infarct reversible ischemia involving anterior wall Cardiac cath 02/03 - normal anatomy - cardiac rehab consulted by Dr. Matute JOAQUIN on CKDIII Sees Making Machine Catcher, Dr. Barrera Decreased PO intake vs colchicine vs IV contrast Cr 1.28 --> 1.78 > 1.57 > 1.39 - Dr. Matute stopped bumex, lasix, spironolactone, entresto - mIVFs - will continue to monitor with am BMPs - renally dose medications Hx CAD, [place] x 4, multiple stents FLP: TGs 332, Chol 210, LDL 88, HDL 56 Dr. Matute bladder blower consulted, appreciate recs - Statin increased - Cardiac inpatient rehab and outpatient rehab consulted HFrEF s/p AICD: Last Echo Jul with cardiologists, last echo in hospital records 02/2019 EF 25-30% Appears euvolemic -currently holding lasix, bumex, entresto, spironolactone due to JOAQUIN per cards recs HTN: -continue home meds and monitor Depression: -continue home meds T2DM: Hgb a1c: 10.4 -not on meds at this time -ACHS accuchecks -has insulin pump, however ran out of insulin, daughter will bring -Aggressive SSI -will need f/u with PCP for BG control Dispo: stable, obs, LOS< 2 days DVT PPx: SCDs GI PPx: home protonix Code Status: Full Addendum - Attending - Attending Attestation Date/Time: 02/05/20 1050 I personally evaluated the patient and discussed the management with Dr. Simmons. I agree with the History, Examination, Assessment and Plan documented above with any addition or exceptions noted below. Patient feeling well. Awaiting further cardiology recs but hopeful for discharge in next day or so. Renal function continues to improve.
[2020-02-05] MEDS: HumaLOG 300 UNITS/3 ML VIAL SC PRN ×3 (06:36→18:04)
[2020-02-05 06:42] LABS: #Eosinphils 0.3 thou/uL (0.0-0.7); #Lymphocytes 1.7 thou/uL (1.20-3.40); #Monocytes 0.4 thou/uL (0.11-0.59); %Basophils 0.5 % (0.0-1.0); %Eosinophils 4.5 % (0.0-10.0); %Lymphocytes 26.2 % (21.0-51.0); %Monocytes 6.3 % (0.0-10.0); %Neutrophils 62.4 % (42.0-75.0); Hemoglobin 13.6 g/dL (12.0-16.0); Mean Corpuscular HGB CONC 33.5 g/dL (32.0-36.0); Mean Corpuscular Hemoglobin 26.8 pg (27.0-31.0); Platelet Count 182 thou/uL (130-400); RBC Distribution Width 13.9 % (11.5-14.5); Red Blood Cell (RBC) Count 5.07 mill/uL (4.20-5.40); White Blood Cell (WBC) Count 6.4 thou/uL (4.8-10.8)
[2020-02-05] MEDS: Ferrous Sulfate 325 MG TAB PO SCH ×2 (08:09→17:31)
[2020-02-05] MEDS: Aspirin 81 mg Enteric Coated Tablet PO SCH (08:12)
[2020-02-05] MEDS: Colchicine 0.6 MG TAB PO SCH ×2 (08:13→20:24)
[2020-02-05] MEDS: TICAGRELOR 90 MG TABLET PO SCH ×2 (08:14→20:25)
[2020-02-05] MEDS: Ezetimibe 10 MG TAB PO SCH (08:14)
[2020-02-05] MEDS: Carvedilol 3.125 MG TAB PO SCH ×2 (08:27→20:23)
[2020-02-05] MEDS ORDERED: Bumetanide 1 MG TAB PO SCH (09:30)
[2020-02-05] MEDS ORDERED: Spironolactone 25 MG TAB PO SCH (09:30)
[2020-02-05] MEDS: Bumetanide 1 MG TAB PO SCH (17:30)
[2020-02-05] MEDS: Spironolactone 25 MG TAB PO SCH (17:31)
[2020-02-05] MEDS: Topiramate 25 MG TAB PO SCH (20:23)
[2020-02-05] MEDS: Rosuvastatin 20 MG TAB PO SCH (20:24)
[2020-02-05] MEDS ORDERED: HumaLOG 300 UNITS/3 ML VIAL SC PRN (22:05)
[2020-02-06 04:37] LABS: Anion Gap 15 mmol/L (10-20); BUN (Urea Nitrogen) 13 mg/dL (7.0-18.7); Calc. Creatinine Clearance 100 mL/min (70-130); Carbon Dioxide 19 mmol/L (22-29); Chloride 106 mmol/L (98-107); Estimated GFR-MDRD 47; Glucose 182 mg/dL (70-105); Potassium 3.6 mmol/L (3.5-5.1); Sodium 136 mmol/L (136-145)
--- NOTE | 2020-02-06 05:59 | PDOC.FM ---
- Subjective Subjective: Patient resting comfortably in bed. Reports no chest pain or shortness of breath. No acute events overnight. Notes diarrhea from starting colchicine. - Objective MAR Reviewed: Yes Vital Signs & Weight: Vital Signs (12 hours) Temp Pulse Resp BP Pulse Ox 02/06/20 04:26 99 02/06/20 04:00 98.3 F 80 16 176/90 H 98 02/05/20 19:35 98.4 F 81 16 145/73 H 99 Weight Weight 114.215 kg I&O: 02/04/20 02/05/20 02/06/20 06:59 06:59 06:59 Intake Total 230 2150 1080 Output Total 565 1800 Balance -335 2150 -720 Result Diagrams: 02/05/20 06:26 02/06/20 04:04 Phys Exam - Physical Examination Constitutional: NAD HEENT: PERRLA, moist MMs Respiratory: no wheezing, clear to auscultation bilateral Cardiovascular: RRR, no significant murmur Gastrointestinal: soft, non-tender, positive bowel sounds Musculoskeletal: no edema, pulses present Neurological: non-focal, normal sensation, moves all 4 limbs Psychiatric: normal affect, A&O x 3 Skin: no rash Dx/Plan (1) Atypical chest pain Code(s): R07.89 - OTHER CHEST PAIN Status: Acute (2) GERD (gastroesophageal reflux disease) Code(s): K21.9 - GASTRO-ESOPHAGEAL REFLUX DISEASE WITHOUT ESOPHAGITIS Status: Acute (3) CKD (chronic kidney disease) stage 3, GFR 30-59 ml/min Code(s): N18.3 - CHRONIC KIDNEY DISEASE, STAGE 3 (MODERATE) Status: Chronic (4) Chronic systolic (congestive) heart failure Code(s): I50.22 - CHRONIC SYSTOLIC (CONGESTIVE) HEART FAILURE Status: Chronic (5) DM type 2 (diabetes mellitus, type 2) Status: Chronic Qualifiers: Diabetes mellitus intermediate frame tender insulin use: with shelter use (6) HTN (hypertension) Code(s): I10 - ESSENTIAL (PRIMARY) HYPERTENSION Status: Chronic Qualifiers: Hypertension type: essential hypertension Qualified Code(s): I10 - Essential (primary) hypertension - Plan Plan: Acute Pericarditis, ACS r/o EKG: NS with T wave inversions in v1, v2 and avL, left axis deviation Trop negative x 3, Heart Score [address] Matute Echo: LV function severely depressed, EF 25-30%, global dyskinesia -restarted home medications -nitro prn -q4hr vitals -monitor respiratory status -hydroxyzine prn for anxiety -Consulted Cards - Dr. Proctor/Giovani, appreciate recs - Spoke with Dr. Matute 02/01, thinks etiology likely inflammation of the pericardium - Started Colchicine with improvement of symptoms, will likely continue outpatient Stress test 07/06: moderate to large region of gustavo-infarct reversible ischemia involving anterior wall Cardiac cath 02/03 - stable anatomy - cardiac rehab consulted by Dr. Matute, will f/u in outpatient JOAQUIN on CKDIII, resolved Sees Soda Worker, Dr. Barrera Decreased PO intake vs colchicine vs IV contrast Baseline Cr 1.28 --> 1.78 > 1.57 > 1.39 > 1.22 - mIVFs - renally dose medications - continue to monitor renal function until discharge this am per Dr. Matute recs Hx CAD, [place] x 4, multiple stents FLP: TGs 332, Chol 210, LDL 88, HDL [address] Dr. Matute workforce development program director consulted, appreciate recs - Statin increased - Cardiac inpatient rehab and outpatient rehab consulted HFrEF s/p AICD: Last Echo Jul with cardiologists, last echo in hospital records 02/2019 EF 25-30% Appears euvolemic - strict I/Os HTN: -continue home meds and monitor Depression: -continue home meds T2DM: Hgb a1c: 10.4 -not on meds at this time -ACHS accuchecks -has insulin pump, however ran out of insulin, daughter will bring -Aggressive SSI -will need f/u with PCP for BG control Dispo: stable, obs, LOS< 2 days DVT PPx: SCDs GI PPx: home protonix Code Status: Full Addendum - Attending - Attending Attestation Date/Time: 02/06/20 1110 I personally evaluated the patient and discussed the management with Dr. Simmons. I agree with the History, Examination, Assessment and Plan documented above with any addition or exceptions noted below. Renal function improved, stable for discharge.
[2020-02-06] MEDS: HumaLOG 300 UNITS/3 ML VIAL SC PRN ×2 (06:05→11:31)
[2020-02-06 08:17] VITALS: TEMP 98.1
[2020-02-06] MEDS: Bumetanide 1 MG TAB PO SCH (08:24)
[2020-02-06] MEDS: Ferrous Sulfate 325 MG TAB PO SCH (08:25)
[2020-02-06] MEDS: TICAGRELOR 90 MG TABLET PO SCH (08:25)
[2020-02-06] MEDS: Carvedilol 3.125 MG TAB PO SCH (08:25)
[2020-02-06] MEDS: Spironolactone 25 MG TAB PO SCH (08:25)
[2020-02-06] MEDS: Aspirin 81 mg Enteric Coated Tablet PO SCH (08:26)
[2020-02-06] MEDS: Colchicine 0.6 MG TAB PO SCH (08:26)
[2020-02-06] MEDS: Ezetimibe 10 MG TAB PO SCH (08:26)
[2020-02-06 11:31] VITALS: BP 133/75
[2020-02-06] MEDS ORDERED: Sacubitril 49 MG/Valsartan 51 MG TABLET PO SCH (21:00)
--- NOTE | 2020-02-06 22:13 | DIS ---
DATE OF ADMISSION: 01/31/2020 DATE OF DISCHARGE: 02/06/2020 RESIDENT: Nohemy Simmons DO ADMITTING ATTENDING: Ana Khan MD DISCHARGE ATTENDING: Hussain Campo MD CONSULTS: Cardiology, Dr. Proctor, and Dr. Matute. PROCEDURES: Cardiac Cath: Stable anatomy per Dr. Matute. Echocardiogram, EF 25% to 30%. Overall left ventricular function severe depressed. Left ventricular size mildly increased, global dyskinesia. PRIMARY DIAGNOSIS: Acute pericarditis, acute coronary syndrome rule out. SECONDARY DIAGNOSES: 1. Acute kidney injury on chronic kidney disease 3, resolved. 2. History of coronary artery disease and myocardial infarction x4 with multiple stents. 3. Heart failure with reduced ejection fraction, status post AICD. 4. Hypertension. 5. Depression. 6. Type 2 diabetes mellitus. DISCHARGE MEDICATIONS: 1. Colchicine 0.6 mg p.o. b.i.d. for 14 days. 2. Rosuvastatin 40 mg p.o. daily. 3. Entresto 49 mg/51 mg tablet one p.o. b.i.d. for 30 days. 4. Aspirin 81 p.o. daily. 5. Bumetanide 1 mg p.o. b.i.d. - a.c. 6. Butalbital/acetaminophen/caffeine one tab p.o. q.4. 7. Carvedilol 12.5 mg p.o. b.i.d. 8. Ezetimibe 10 mg p.o. daily. 9. Ferrous sulfate 325 mg p.o. b.i.d. with meals. 10. Isosorbide mononitrate 60 mg p.o. daily. 11. Nitroglycerin 0.4 mg p.o. q.5 minutes. 12. Pantoprazole sodium 40 mg p.o. a.c. 13. Ranexa 1000 mg p.o. b.i.d. 14. Sertraline 150 mg p.o. daily. 15. Spironolactone 25 mg p.o. b.i.d. with meals. 16. Ticagrelor 90 mg p.o. b.i.d. 17. Topiramate 25 mg p.o. at bedtime. DISCONTINUED MEDICATIONS: 1. Entresto 97 mg/103 mg tablet. 2. Furosemide 40 mg p.o. daily. 3. Rosuvastatin 20 mg p.o. daily. HISTORY OF PRESENT ILLNESS/HOSPITAL COURSE: A 49-year-old female with past medical history of CAD, status post stent; CKD 3; and HFrEF, status post AICD, here for chest pain over the last 2 weeks, worsened today, located in the left chest, non exertional. Sees Dr. Matute (Cards). HEART score was 5. Initially admitted for observation, troponins neg x 3, however, patient reported recurrent chest pain throughout the night, resolved with nitro patch and Cardiology was consulted. Repeat echo revealed global dyskinesia (report above) . Patient had interrogated AICD that showed no events. Dr. Matute (cards) suspected pericaritis as likely etiology, and started colchicine. Creatinine function increased initially from 1.28 to 1.78 after starting colchicine. Stress test 2/2 showed moderate gustavo-infarct reversible ischemia involving anterior wall. Dr. Matute performed cardiac cath which showed stable anatomy. Dr. Matute did not want to do further intervention. Decreased patient's Entresto, paused her diuretics to allow the kidneys to recover and eventually restarted her diuretics and discharged patient on colchicine for 14 days, a reduced dose of entresto and an increased dose of her statin. DISPOSITION: Stable. DISCHARGE INSTRUCTIONS: Location: Home. Diet: Heart healthy. Activity: Ad leo. Followup: With Dr. Matute in 7 days. Follow up with your primary care physician in 7 days to monitor renal function. Job ID: [id number] [id number]
== END 2020-02-06 13:20 | disposition home or self-care (01) | DRG 287 ==
LOC: ERS 13:46 → 2SW 16:53 → OBSVTOIN 16:53 → 2NO 02-03 18:58
PROVIDERS: ADMIT Family Medicine; ATTEND Family Medicine
PROC: B2111ZZ Fluoroscopy of Multiple Coronary Arteries using Low Osmolar Contrast (ICD-10-PCS; principal; 2020-02-04)
DX: I30.9 Acute pericarditis, unspecified (principal); I50.22 Chronic systolic (congestive) heart failure; I13.0 Hypertensive heart and chronic kidney disease with heart failure and stage 1 through stage 4 chronic kidney disease, or unspecified chronic kidney disease; N17.9 Acute kidney failure, unspecified; I25.10 Atherosclerotic heart disease of native coronary artery without angina pectoris; N18.3 Chronic kidney disease, stage 3 (moderate); E11.22 Type 2 diabetes mellitus with diabetic chronic kidney disease; E78.5 Hyperlipidemia, unspecified; K21.9 Gastro-esophageal reflux disease without esophagitis; F32.9 Major depressive disorder, single episode, unspecified; J44.9 Chronic obstructive pulmonary disease, unspecified; E78.00 Pure hypercholesterolemia, unspecified; I25.5 Ischemic cardiomyopathy; E66.9 Obesity, unspecified; F41.9 Anxiety disorder, unspecified; Z68.41 Body mass index [BMI] 40.0-44.9, adult; Z95.5 Presence of coronary angioplasty implant and graft; Z95.810 Presence of automatic (implantable) cardiac defibrillator; Z79.01 Long term (current) use of anticoagulants; Z79.82 Long term (current) use of aspirin; Z79.899 Other long term (current) drug therapy; Z95.1 Presence of aortocoronary bypass graft; I25.2 Old myocardial infarction; Z91.14 Patient's other noncompliance with medication regimen; Z88.8 Allergy status to other drugs, medicaments and biological substances
CPT/HCPCS: 36415; 36416; 36600; 71045; 78452; 80048; 80053; 80061; 81003; 81015; 83036; 83690; 83880; 84484; 84703; 85025; 85652; 86140; 87635; 93005; 93017; 93306; 93454; 93798; 94760; 96372; 99152; A9500; J0153; J1644; J1885; J2001; J2250; J2720; J3010; Q9967; U0003

== ENCOUNTER 2020-05-03 01:41 | Emergency (ER) | payer BC ==
[2020-05-03 02:22] LABS: #Basophils 0.1 thou/uL (0.0-0.2); #Eosinphils 0.5 thou/uL (0.0-0.7); #Lymphocytes 2.2 thou/uL (1.20-3.40); #Monocytes 0.3 thou/uL (0.11-0.59); #Neutrophils 4.8 thou/uL (1.40-6.50); %Basophils 0.8 % (0.0-1.0); %Eosinophils 6.5 % (0.0-10.0); %Lymphocytes 27.6 % (21.0-51.0); %Monocytes 4.1 % (0.0-10.0); Hemoglobin 14.9 g/dL (12.0-16.0); Mean Corpuscular HGB CONC 33.5 g/dL (32.0-36.0); Mean Corpuscular Hemoglobin 26.5 pg (27.0-31.0); Mean Platelet Volume 8.9 fL (7.4-10.4); Platelet Count 161 thou/uL (130-400); Red Blood Cell (RBC) Count 5.62 mill/uL (4.20-5.40); White Blood Cell (WBC) Count 7.8 thou/uL (4.8-10.8)
[2020-05-03 02:44] LABS: ALT (SGPT) 18 U/L (8-55); AST (SGOT) 17 U/L (5-34); Albumin 3.5 g/dL (3.5-5.0); Alkaline Phosphatase 88 U/L (40-110); Anion Gap 15 mmol/L (10-20); BUN (Urea Nitrogen) 21 mg/dL (7.0-18.7); Bilirubin, Total 0.5 mg/dL (0.2-1.2); CK (CPK) 68 U/L (29-168); Calc. Creatinine Clearance 0 mL/min (70-130); Calcium 9.4 mg/dL (7.8-10.44); Carbon Dioxide 26 mmol/L (22-29); Chloride 101 mmol/L (98-107); Estimated GFR-MDRD 43; Globulin 3.3 g/dL (2.4-3.5); Glucose 345 mg/dL (70-105); Lipase 56 U/L (8-78); Protein, Total 6.8 g/dL (6.0-8.3); Sodium 138 mmol/L (136-145)
[2020-05-03] MEDS ORDERED: Meclizine HCl 25 MG TAB PO SCH (02:45)
[2020-05-03] MEDS ORDERED: Meclizine HCl 25 MG TAB ONE ×2 (03:06→03:09)
[2020-05-03 05:01] LABS: Troponin I 0.023 ng/mL (< 0.028)
--- NOTE | 2020-05-03 08:08 | RAD ---
RADIOGRAPH CHEST 1 VIEW: DATE: 05/03/2020 HISTORY: 49-year-old female with chest pain FINDINGS: There are no airspace densities, pulmonary edema, pneumothorax, or cardiomegaly. The lateral costophr enic angles are sharp. Single lead left subclavian AICD. IMPRESSION: No acute cardiopulmonary findings.
--- NOTE | 2020-05-03 08:08 | CT ---
PRELIMINARY REPORT/[facility]/EMERGENCY AFTER HOURS PROCEDURE: EXAM: CT Head Without Intravenous Contrast. CLINICAL HISTORY: Patient presents from home due to dizziness. She says she began feeling like the room was spinning ap proximately an hour ago. She says she feels like she is on a roller coaster. She reports onset of cliff sea with numerous episodes of vomiting all of which began after onset of dizziness TECHNIQUE: Axial computed tomography images of the head/brain without intravenous contrast. COMPARISON: 05/12/2019. FINDINGS: BRAIN: No acute intraparenchymal hemorrhage. No mass lesion. No CT evidence for acute territorial infarct. N o midline shift or extra-axial collection. VENTRICLES: No hydrocephalus. ORBITS: The orbits are unremarkable. SINUSES AND MASTOIDS: The paranasal sinuses and mastoid air cells are clear. SOFT TISSUES: No significant facial or scalp soft tissue swelling evident. No radiopaque foreign body is seen. BONES: No acute skull fracture. IMPRESSION: No acute intracranial abnormality. ELECTRONICALLY SIGNED BY: Angelina Berry DO May 03, 2020 2:29:21 AM [employer] This report is intended for review by the ordering physician only, in accordance of law. If you recei ve this report in error, please call [facility] at [phone]. FINAL REPORT EMERGENCY AFTER HOURS CT BRAIN WITHOUT CONTRAST: Date: 05/03/2020 COMPARISON: 05/12/2019. FINDINGS/IMPRESSION: I agree with the findings and impression given in the preliminary report per [facility] physici an. No evidence of acute intracranial abnormality. POS: ARNOLDOA
== END 2020-05-03 05:14 | disposition home or self-care (01) ==
LOC: ERS 01:41
DX: R42 Dizziness and giddiness (principal); R07.89 Other chest pain; I25.2 Old myocardial infarction; E11.9 Type 2 diabetes mellitus without complications; Z79.4 Long term (current) use of insulin; I10 Essential (primary) hypertension; G43.909 Migraine, unspecified, not intractable, without status migrainosus; E78.5 Hyperlipidemia, unspecified; E78.00 Pure hypercholesterolemia, unspecified; F41.9 Anxiety disorder, unspecified; F32.9 Major depressive disorder, single episode, unspecified; Z79.82 Long term (current) use of aspirin; Z79.899 Other long term (current) drug therapy
CPT/HCPCS: 36415; 70450; 71045; 80053; 82550; 83690; 84484; 85025; 93005

== ENCOUNTER 2020-06-28 16:56 | Observation (INO) | payer BC, SELFPAY ==
[2020-06-28 17:41] LABS: #Basophils 0.1 thou/uL (0.0-0.2); #Eosinphils 0.4 thou/uL (0.0-0.7); #Lymphocytes 1.7 thou/uL (1.20-3.40); #Monocytes 0.3 thou/uL (0.11-0.59); #Neutrophils 4.8 thou/uL (1.40-6.50); %Basophils 0.9 % (0.0-1.0); %Eosinophils 5.2 % (0.0-10.0); %Lymphocytes 23.3 % (21.0-51.0); %Monocytes 4.6 % (0.0-10.0); Hemoglobin 12.9 g/dL (12.0-16.0); Mean Corpuscular HGB CONC 33.8 g/dL (32.0-36.0); Mean Corpuscular Hemoglobin 26.4 pg (27.0-31.0); Mean Corpuscular Volume 78.2 fL (78.0-98.0); Mean Platelet Volume 8.9 fL (7.4-10.4); Platelet Count 113 thou/uL (130-400); RBC Distribution Width 12.2 % (11.5-14.5); Red Blood Cell (RBC) Count 4.88 mill/uL (4.20-5.40); White Blood Cell (WBC) Count 7.3 thou/uL (4.8-10.8)
[2020-06-28 18:04] LABS: Large Platelets SLIGHT; MDiff Complete? YES; Platelet Morphology Comment Appears Decreased; RBC Morphology Normal
[2020-06-28 18:08] LABS: ALT (SGPT) 15 U/L (8-55); AST (SGOT) 16 U/L (5-34); Albumin 2.9 g/dL (3.5-5.0); Alkaline Phosphatase 90 U/L (40-110); Anion Gap 16 mmol/L (10-20); BUN (Urea Nitrogen) 16 mg/dL (7.0-18.7); Bilirubin, Total 0.8 mg/dL (0.2-1.2); CK (CPK) 28 U/L (29-168); Calc. Creatinine Clearance 0 mL/min (70-130); Calcium 8.4 mg/dL (7.8-10.44); Carbon Dioxide 20 mmol/L (22-29); Chloride 102 mmol/L (98-107); Glucose 462 mg/dL (70-105); Lipase 63 U/L (8-78); Potassium 4.6 mmol/L (3.5-5.1); Protein, Total 5.9 g/dL (6.0-8.3); Sodium 133 mmol/L (136-145)
[2020-06-28] MEDS ORDERED: HumaLOG 300 UNITS/3 ML VIAL ONE (18:43)
--- NOTE | 2020-06-28 18:43 | PDOC.HHP ---
Hospitalist HPI - History of Present Illness chest pain History of Present Illness: PCP: Carlos Damon ([place]) The patient is a 49-year-old female with a past medical history significant for CAD (8 stents), myocardial infarction (x6), systolic CHF with AICD, DM 2 on insulin that presents to the emergency department for the above complaint. The patient reports developing chest pain yesterday evening, located substernal, radiating to left upper extremity jaw and back, described as dull and aching and intermittently a sharp and stabbing with associated fatigue, shortness of breath. Reports exacerbated with laying on her left side which induces nausea and vomiting. Denies hemoptysis/hematemesis. Reported blood pressure reading 195/117, so she took 2 baby aspirin and 2 sublingual nitro, which improved her pain, however, did not resolve it. She ate dinner and was able to fall asleep. The next day she still had chest pain, which was basically unchanged from the night before. The pain increased in intensity throughout the morning. She repeated the dose of 2 baby aspirin to sublingual nitro with no relief of symptoms. She called EMS. Upon arrival, EMS administered 2 more sublingual nitro and 2 more baby aspirin which did improve the patient's pain. She was brought to emergency department for further evaluation. Denies heart palpitations and lightheadedness. Endorses swelling to her lower extremities which is not unusual for her. Reports mild shortness of breath, denies any cough, wheezing, history of DVT/PE. No history of COPD/asthma. Denies any fever or chills. No known sick contacts. Denies abdominal pain, dysuria and hematuria. ED Course: VITAL SIGNS SunJun 28, 2020 17:11 RAJIV Grady Elizabeth BP: 165/97, MAP: 119, Pulse: 81, Resp: 20 (Non-Labored), O2 sat: 96 on (Room Air), Time: 06/28/2020 17:11. VITAL SIGNS SunJun 28, 2020 17:20 RAJIV Grady Elizabeth Temp: 98.6 (Oral), Pain: 3, Time: 06/28/2020 17:20 Medications: NovoLIN R Regular U-100 Insuln 10 units IV Push Ordered 18:38 06/28/2020 Hospitalist ROS - Review of Systems All other systems reviewed; all pertinent +/- noted in HPI/Subj - Medication Medications: Medication Instructions Recorded Confirmed Type Sertraline HCl [Zoloft] 150 mg PO DAILY 05/05/18 01/31/20 History Isosorbide Mononitrate [Imdur] 60 mg PO DAILY 11/08/18 01/31/20 History Ranolazine [Ranexa] 1,000 mg PO BID #60 tab 01/07/19 01/31/20 Rx Spironolactone [Aldactone] 25 mg PO BID-WM #60 tab 03/03/19 01/31/20 Rx Carvedilol [Coreg] 12.5 mg PO BID 03/27/19 01/31/20 History Bumetanide [Bumex] 1 mg PO BID-AC 04/26/19 01/31/20 History Nitroglycerin [Nitrostat] 0.4 mg PO Q5MIN PRN #10 tab 07/02/19 01/31/20 Rx Aspirin [Ecotrin Low Strength] 81 mg PO DAILY 07/27/19 01/31/20 History Pantoprazole Sodium 40 mg PO AC 10/17/19 01/31/20 History Topiramate [Topamax] 25 mg PO HS 10/17/19 01/31/20 History Butalb/Acetaminophen/Caffeine 1 tab PO Q4H PRN 12/18/19 01/31/20 History [Hdilaf-Hcbjlqoz-Kzew 50-325-40] Ezetimibe 10 mg PO DAILY 12/18/19 01/31/20 History Ticagrelor [Brilinta] 90 mg PO BID 12/18/19 01/31/20 History Ferrous Sulfate [Feosol] 325 mg PO BID-WM #60 tab 01/04/20 01/31/20 Rx Ozempic unk dosing weekly Rosuvastatin [Crestor] 40 mg PO DAILY #30 tab 02/06/20 Rx Sacubitril/Valsartan 49/51 1 tab PO BID 30 Days #60 tab 02/06/20 Rx [Entresto 49 mg-51 mg Tablet] Allergies: diphenhydrAMINE HCl, diphenhydramine (Unconfirmed), naproxen 06/28/20 19:49 Resuscitation Status Routine Co-Sign Provider: Resuscitation Status: FULL: Full Resuscitation Discussed with: patient Hospitalist History - Past Medical History Source: patient, RN notes reviewed Cardiac: reports: CAD (8 stents), CHF (Severely reduced ejection fraction with AICD), HTN, TN (X6), Hyperlipidemia BUTT MAKER: reports: Migraine Psych: reports: Anxiety, Depression Endocrine: reports: Diabetes (Type 2 insulin-dependent) - Past Surgical History Past Surgical History: reports: Other (CAD x8 stents, AICD (07/24), right neck tumor surgery) - Family History Family History: reports: cardiac disorder, diabetes mellitus - Social History Smoking Status: Never smoker Alcohol: reports: None Living Situation: Friends Occupation: Disabled Activity level: independent ambulation - Exam General Appearance: NAD, awake alert. negative: ill appearing General - other findings: Appears comfortable Eye: PERRL ENT: normocephalic atraumatic, moist mucosa Neck: supple, no carotid bruit Heart: RRR, no murmur, no gallops, no rubs, normal peripheral pulses Respiratory: CTAB, no wheezes, no rales, no ronchi, normal chest expansion Gastrointestinal: soft, non-tender, non-distended, normal bowel sounds, no guarding, no rigidity Extremities: 1+ LE edema Skin: no rashes Neurological: no focal deficits Musculoskeletal: normal tone, normal strength Psychiatric: normal affect, A&O x 3 Hospitalist Results - Labs Result Diagrams: 06/28/20 17:26 06/28/20 17:26 Lab results: WBC 7.3 thou/uL (4.8-10.8) 06/28/20 17:26 Hgb 12.9 g/dL (12.0-16.0) 06/28/20 17:26 Hct 38.2 % (36.0-47.0) 06/28/20 17:26 MCV 78.2 fL (78.0-98.0) 06/28/20 17:26 Plt Count 113 thou/uL (130-400) L 06/28/20 17:26 Neutrophils % 66.0 % (42.0-75.0) 06/28/20 17:26 Sodium 133 mmol/L (136-145) L 06/28/20 17:26 Potassium 4.6 mmol/L (3.5-5.1) 06/28/20 17:26 Chloride 102 mmol/L (98-107) 06/28/20 17:26 Carbon Dioxide 20 mmol/L (22-29) L 06/28/20 17:26 BUN 16 mg/dL (7.0-18.7) 06/28/20 17:26 Creatinine 1.06 mg/dL (0.6-1.1) 06/28/20 17:26 Glucose 462 mg/dL (70-105) H 06/28/20 17:26 Calcium 8.4 mg/dL (7.8-10.44) 06/28/20 17:26 Total Bilirubin 0.8 mg/dL (0.2-1.2) 06/28/20 17:26 AST 16 U/L (5-34) 06/28/20 17:26 ALT 15 U/L (8-55) 06/28/20 17:26 Alkaline Phosphatase 90 U/L (40-110) 06/28/20 17:26 Creatine Kinase 28 U/L (29-168) L 06/28/20 17:26 Troponin I 0.017 ng/mL (< 0.028) 06/28/20 17:26 Serum Total Protein 5.9 g/dL (6.0-8.3) L 06/28/20 17:26 Albumin 2.9 g/dL (3.5-5.0) L 06/28/20 17:26 Lipase 63 U/L (8-78) 06/28/20 17:26 - EKG Interpretation EKG: Normal sinus rhythm, LVH, T wave inversions anterior lateral leads, no ST el evations - Radiology Interpretation Chest x-ray Status: report reviewed by me Additional Comment: Mild vascular/interstitial congestion Hospitalist H&P A/P - Problem (1) Chest pain Code(s): R07.9 - CHEST PAIN, UNSPECIFIED Status: Acute (2) CAD (coronary artery disease) Code(s): I25.10 - ATHSCL HEART DISEASE OF [place] CORONARY ARTERY W/O ANG PCTRS Status: Chronic (3) Heart failure with reduced ejection fraction Code(s): I50.20 - UNSPECIFIED SYSTOLIC (CONGESTIVE) HEART FAILURE Status: Chronic (4) DM2 (diabetes mellitus, type 2) Status: Chronic (5) HTN (hypertension) Code(s): I10 - ESSENTIAL (PRIMARY) HYPERTENSION Status: Chronic (6) HLD (hyperlipidemia) Code(s): E78.5 - HYPERLIPIDEMIA, UNSPECIFIED Status: Chronic (7) Anxiety and depression Code(s): F41.9 - ANXIETY DISORDER, UNSPECIFIED; F32.9 - MAJOR DEPRESSIVE DISORDER, SINGLE EPISODE, UNSPECIFIED Status: Chronic - Plan Plan: Patient with chest pain CAD and CHF with AICD presents for Chest pain. EKG NSR. CXR mild vascular congestion. Initial troponin0.017, BNP 540 #Chest pain Heart score 5, Well PE score 0 trend troponins, check TSH, FLP, Mg level Continue ASA, hold plavix Start statin, nitropaste and BB NPO midnight Consult cardiology - Dr. Matute #CAD History 8 stents History 6 myocardial infarctions Takes coreg, imdur, ranexa Restart coreg, imdur and ranexa takes ASA and plavix Continue ASA, hold brilinta for now. #CHF with reduced EF CXR mild vascular congestion BNP 540, was 65 (01/21) - takes entrestro 01/21 Echocardiogram EF 25-30%, mildTR, modMR, dyskinetic/hypokinetic LV 01/21 CCL Restart home dose coreg, imdur, ranexa, entresto, bumex and spironalactone #DMII Has pump, is not with her this admission presented BG 462 Received 10 units Reg insulin in ED Start Agg ISS AC/HS checks #HTN restart home meds #HLD restart home dose ezetimibe and crestor check FLP #Anxiety and Depression Denies SI/HI restart home dose sertraline #Migraines Takes topamax daily, restart home dose. SCDs for DVT prophylaxis Protonix for GI prophylaxis CODE STATUS IS Full Code Discussed case with attending physician, Dr. Garzon who agrees with plan of care.
[2020-06-28] MEDS ORDERED: Insulin Regular 300 UNITS/3 ML VIAL ONE (18:44)
--- NOTE | 2020-06-28 18:58 | RAD ---
PORTABLE CHEST: Date: 06-28-2020 Indications: Chest pain. Comparison: 05-03-2020 FINDINGS: Mild cardiomegaly is stable. Mild vascular engorgement and mild interstitial congestion slightly more prominent than on the prior study. AICD lead unchanged. Small effusions cannot be excluded. IMPRESSION: Evidence of mild vascular and interstitial congestion. No focal infiltrate or consolidation. POS: AGW
[2020-06-28] MEDS ORDERED: Nitroglycerin 0.4 MG TAB (25 Tab Bottle) SL PRN (19:44)
[2020-06-28] MEDS ORDERED: Dextrose 50% Abboject 50 ML SYRINGE SLOW IVP PRN (19:48)
[2020-06-28] MEDS ORDERED: Dextrose 5% in Water 1,000 ML IV PRN (19:48)
[2020-06-28] MEDS ORDERED: Ondansetron PF 4 MG/2 ML Vial IVP PRN (19:49)
[2020-06-28] MEDS ORDERED: Calcium Carbonate 500 MG ChewTAB PO PRN (19:49)
[2020-06-28] MEDS ORDERED: Ondansetron ODT 4 MG TAB PO PRN (19:49)
[2020-06-28] MEDS ORDERED: Acetaminophen 325 MG TAB PO PRN (19:49)
[2020-06-28] MEDS ORDERED: Senokot S 8.6-50 MG TAB PO PRN (19:49)
[2020-06-28] MEDS ORDERED: Bisacodyl 5 MG TAB PO PRN (19:49)
[2020-06-28 20:51] LABS: Troponin I 0.014 ng/mL (< 0.028)
[2020-06-28] MEDS ORDERED: Topiramate 25 MG TAB PO SCH (21:00)
[2020-06-28 21:46] VITALS: BMI 44.4
[2020-06-28] MEDS ORDERED: Nitroglycerin 2% Ointment 1 INCH/1 GM Packet TOP SCH (22:00)
[2020-06-28] MEDS: Sacubitril 49 MG/Valsartan 51 MG TABLET PO SCH (22:38)
[2020-06-28] MEDS: Carvedilol 6.25 MG TAB PO SCH (22:38)
[2020-06-28] MEDS: Nitroglycerin 2% Ointment 1 INCH/1 GM Packet TOP SCH (22:39)
[2020-06-28] MEDS: HumaLOG 300 UNITS/3 ML VIAL SC PRN (22:59)
[2020-06-28 23:49] LABS: Troponin I 0.019 ng/mL (< 0.028)
[2020-06-29 03:04] LABS: Bacteria/HPF None Seen HPF (None Seen); Bilirubin Negative (Negative); Blood, Urine Negative (Negative); Clarity Clear (Clear); Glucose, Urine (Dipstick) Greater than 1000 mg/dL (Negative); Ketone, Urine Negative (Negative); Leukocyte Negative Leu/uL (Negative); Nitrite Negative (Negative); Protein, Urine (Dipstick) 100 mg/dL (Neg-Trace); RBC/HPF 0-3 HPF (0-3); Specific Gravity, Urine 1.009 (1.002-1.036); Squamous Epithelial 0-3 HPF (0-3); Urobilinogen Normal mg/dL (Less than 2); pH, Urine 6.5 (5.0-9.0)
[2020-06-29 04:49] LABS: #Basophils 0.1 thou/uL (0.0-0.2); #Eosinphils 0.5 thou/uL (0.0-0.7); #Lymphocytes 2.1 thou/uL (1.20-3.40); #Monocytes 0.4 thou/uL (0.11-0.59); #Neutrophils 5.3 thou/uL (1.40-6.50); %Basophils 0.8 % (0.0-1.0); %Eosinophils 5.5 % (0.0-10.0); %Lymphocytes 24.9 % (21.0-51.0); %Monocytes 4.8 % (0.0-10.0); Hemoglobin 14.2 g/dL (12.0-16.0); Mean Corpuscular HGB CONC 33.8 g/dL (32.0-36.0); Mean Corpuscular Hemoglobin 26.5 pg (27.0-31.0); Mean Corpuscular Volume 78.4 fL (78.0-98.0); Mean Platelet Volume 9.2 fL (7.4-10.4); Platelet Count 116 thou/uL (130-400); RBC Distribution Width 12.5 % (11.5-14.5); Red Blood Cell (RBC) Count 5.36 mill/uL (4.20-5.40); White Blood Cell (WBC) Count 8.3 thou/uL (4.8-10.8)
[2020-06-29 05:21] LABS: Chloride 101 mmol/L (98-107); Potassium 4.8 mmol/L (3.5-5.1); Sodium 132 mmol/L (136-145)
[2020-06-29 05:22] LABS: Calcium 8.7 mg/dL (7.8-10.44); Glucose 345 mg/dL (70-105)
[2020-06-29 05:23] LABS: Triglycerides 321 mg/dL (Less than 150)
[2020-06-29 05:24] LABS: Carbon Dioxide 19 mmol/L (22-29)
[2020-06-29] MEDS: Nitroglycerin 2% Ointment 1 INCH/1 GM Packet TOP SCH ×2 (05:24→15:05)
[2020-06-29 05:26] LABS: BUN (Urea Nitrogen) 18 mg/dL (7.0-18.7); Calc. Creatinine Clearance 114 mL/min (70-130)
[2020-06-29 05:28] LABS: Cardiac Risk 4.9 (Less than 4.5); Cholesterol 274 mg/dl (< 200 Desired); HDL Cholesterol 56 mg/dL (>60 Neg Risk); LDL Cholesterol, Calculated 154 mg/dL
[2020-06-29 05:40] LABS: Anion Gap 17 mmol/L (10-20)
[2020-06-29] MEDS: HumaLOG 300 UNITS/3 ML VIAL SC PRN ×3 (06:08→19:18)
[2020-06-29 07:20] LABS: SARS-CoV-2 PCR by NAA Not Detected (NotDetected)
[2020-06-29] MEDS: Spironolactone 25 MG TAB PO SCH ×2 (08:46→16:49)
[2020-06-29] MEDS: Ferrous Sulfate 325 MG TAB PO SCH ×2 (08:46→16:49)
[2020-06-29] MEDS: Carvedilol 6.25 MG TAB PO SCH (08:47)
[2020-06-29] MEDS: Bumetanide 1 MG TAB PO SCH ×2 (08:48→16:49)
[2020-06-29] MEDS: Sacubitril 49 MG/Valsartan 51 MG TABLET PO SCH (08:48)
[2020-06-29] MEDS ORDERED: Ezetimibe 10 MG TAB PO SCH (09:00)
[2020-06-29] MEDS ORDERED: Rosuvastatin 20 MG TAB PO SCH (09:00)
--- NOTE | 2020-06-29 15:41 | PDOC.HOSPP ---
- Subjective Encounter Date: 06/29/20 Subjective: Patient recounted her history for me. Sounds like she was having some nausea symptoms prior to her chest pain symptoms. Her chest pain symptoms sounded somewhat atypical. - Objective Vital Signs & Weight: Vital Signs (12 hours) Temp Pulse Pulse Pulse Resp BP BP 06/29/20 15:36 97.5 F L 75 18 06/29/20 15:33 97.5 F L 75 16 136/90 06/29/20 12:00 98 F 78 18 06/29/20 10:58 78 80 147/93 H 06/29/20 08:47 158/84 H 06/29/20 08:00 97.8 F 79 18 06/29/20 07:58 97.8 F 79 18 158/84 H 06/29/20 07:00 97.8 F 79 18 158/84 H 06/29/20 03:52 98.2 F 78 20 BP BP BP Pulse Ox Pulse Ox Pulse Ox 06/29/20 15:36 136/90 93 L 06/29/20 15:33 93 L 06/29/20 12:00 138/79 06/29/20 10:58 138/79 95 96 06/29/20 08:47 06/29/20 08:00 158/84 H 93 L 06/29/20 07:58 93 L 06/29/20 07:00 93 L 06/29/20 03:52 147/81 H 97 Weight Weight 261 lb 14.4 oz I&O: 06/28/20 06/29/20 06/30/20 06:59 06:59 06:59 Intake Total 720 Output Total 1000 Balance -280 Result Diagrams: 06/29/20 04:08 06/29/20 04:08 Additional Labs: Accuchecks 06/29/20 06/29/20 06/28/20 10:42 05:37 22:47 POC Glucose 336 H 324 H 360 H 06/28/20 20:13 POC Glucose 350 H Hospitalist ROS - Medication Medications: Active Medications Generic Name Dose Route Start Last Admin Trade Name Freq PRN Reason Stop Dose Admin Bumetanide 1 mg 06/29/20 07:30 06/29/20 08:48 Bumetanide 1 Mg Tab PO 1 mg BID-AC ANDREY Administration Carvedilol 12.5 mg 06/28/20 21:00 06/29/20 08:47 Carvedilol 6.25 Mg Tab PO 12.5 mg BID ANDREY Administration Ezetimibe 10 mg 06/29/20 09:00 06/29/20 08:47 Ezetimibe 10 Mg Tab PO 10 mg DAILY ANDREY Administration Ferrous Sulfate 325 mg 06/29/20 08:00 06/29/20 08:46 Ferrous Sulfate 325 Mg Tab PO 325 mg BID-WM ANDREY Administration Insulin Human Lispro 0 units 06/28/20 19:48 06/29/20 12:47 Humalog 300 Units/3 Ml Vial SC 11 unit .AGGRESSIVE SLIDING PRN Administration Aggressive Correctional Scale Insulin Human Lispro 0 units 06/28/20 19:48 06/29/20 06:08 Humalog 300 Units/3 Ml Vial SC 4 unit .BEDTIME SLIDING SC PRN Administration Bedtime Correctional Scale Isosorbide Mononitrate 60 mg 06/29/20 09:00 06/29/20 08:46 Isosorbide Mononitrate Er 60 Mg Tab PO 60 mg DAILY ANDREY Administration Nitroglycerin 0.5 inch 06/28/20 22:00 06/29/20 15:05 Nitroglycerin 2% Ointment 1 Inch/1 Gm Packet TOP 0.5 inch Q8HR ANDREY Administration Ondansetron HCl 4 mg 06/28/20 19:49 06/28/20 22:38 Ondansetron Odt 4 Mg Tab PO 4 mg Q6H PRN Administration Nausea/Vomiting Pantoprazole Sodium 40 mg 06/29/20 07:30 06/29/20 12:47 Pantoprazole 40 Mg Tab PO 40 mg AC [facility] Administration Ranolazine 1,000 mg 06/28/20 21:00 06/29/20 08:46 Ranolazine 500 Mg Tab PO 1,000 mg BID [facility] Administration Rosuvastatin Calcium 40 mg 06/29/20 09:00 06/29/20 08:47 Rosuvastatin 20 Mg Tab PO 40 mg DAILY ANDREY Administration Sacubitril/Valsartan 1 tab 06/28/20 21:00 06/29/20 08:48 Sacubitril 49 Mg/Valsartan 51 Mg Tablet PO 1 tab BID ANDREY Administration Sertraline HCl 150 mg 06/29/20 09:00 06/29/20 08:47 Sertraline Hcl 100 Mg Tab PO 150 mg DAILY ANDREY Administration Sodium Chloride 10 ml 06/28/20 19:44 06/29/20 08:46 Flush - Normal Saline 10 Ml Syringe IVF 10 ml PRN PRN Administration Saline Flush Spironolactone 25 mg 06/29/20 08:00 06/29/20 08:46 Spironolactone 25 Mg Tab PO 25 mg BID-WM ANDREY Administration Topiramate 25 mg 06/28/20 21:00 06/28/20 22:37 Topiramate 25 Mg Tab PO 25 mg HS ANDREY Administration Hospitalist Exam Vitals: Vital Signs (12 hours) Temp Pulse Pulse Pulse Resp BP BP 06/29/20 15:36 97.5 F L 75 18 06/29/20 15:33 97.5 F L 75 16 136/90 06/29/20 12:00 98 F 78 18 06/29/20 10:58 78 80 147/93 H 06/29/20 08:47 158/84 H 06/29/20 08:00 97.8 F 79 18 06/29/20 07:58 97.8 F 79 18 158/84 H 06/29/20 07:00 97.8 F 79 18 158/84 H 06/29/20 03:52 98.2 F 78 20 BP BP BP Pulse Ox Pulse Ox Pulse Ox 06/29/20 15:36 136/90 93 L 06/29/20 15:33 93 L 06/29/20 12:00 138/79 06/29/20 10:58 138/79 95 96 06/29/20 08:47 06/29/20 08:00 158/84 H 93 L 06/29/20 07:58 93 L 06/29/20 07:00 93 L 06/29/20 03:52 147/81 H 97 Weight Weight 261 lb 14.4 oz General Appearance: NAD, awake alert Heart: RRR, no murmur, no gallops, no rubs, normal peripheral pulses Respiratory: CTAB, no wheezes, no rales, no ronchi, normal chest expansion, no tachypnea, normal percussion Gastrointestinal: soft, non-tender, non-distended, normal bowel sounds, no palpable masses Extremities: no cyanosis, no clubbing, no edema Skin: normal turgor Neurological: no new deficit Musculoskeletal: normal tone, normal strength, no muscle wasting Psychiatric: normal affect, normal behavior, A&O x 3 Hosp A/P (1) Chest pain Code(s): R07.9 - CHEST PAIN, UNSPECIFIED Status: Acute (2) Ischemic cardiomyopathy Code(s): I25.5 - ISCHEMIC CARDIOMYOPATHY Status: Acute (3) CAD (coronary artery disease) Code(s): I25.10 - ATHSCL HEART DISEASE OF [place] CORONARY ARTERY W/O ANG PCTRS Status: Chronic (4) Diabetic gastroparesis Code(s): E11.43 - TYPE 2 DIABETES W DIABETIC AUTONOMIC (POLY)NEUROPATHY; K31.84 - GASTROPARESIS Status: Acute (5) Anxiety and depression Code(s): F41.9 - ANXIETY DISORDER, UNSPECIFIED; F32.9 - MAJOR DEPRESSIVE DISORDER, SINGLE EPISODE, UNSPECIFIED Status: Chronic (6) DM2 (diabetes mellitus, type 2) Status: Chronic (7) HLD (hyperlipidemia) Code(s): E78.5 - HYPERLIPIDEMIA, UNSPECIFIED Status: Chronic (8) HTN (hypertension) Code(s): I10 - ESSENTIAL (PRIMARY) HYPERTENSION Status: Chronic (9) AICD (automatic cardioverter/defibrillator) present Code(s): Z95.810 - PRESENCE OF AUTOMATIC (IMPLANTABLE) CARDIAC DEFIBRILLATOR Status: Chronic (10) CKD (chronic kidney disease) stage 3, GFR 30-59 ml/min Code(s): N18.3 - CHRONIC KIDNEY DISEASE, STAGE 3 (MODERATE) * DO NOT USE * Status: Chronic (11) JAEL on CPAP Code(s): G47.33 - OBSTRUCTIVE SLEEP APNEA (ADULT) (PEDIATRIC); Z99.89 - DEP ENDENCE ON OTHER ENABLING MACHINES AND DEVICES Status: Chronic - Plan Chest pain: Patient has a history of significant coronary artery disease and ischemic cardiomyopathy. Symptoms sound atypical. Troponins have been negative. Given her history we will have her seen by her detective automobile section, Dr. Matute. Symptoms appear to be resolved. They were preceded by some nausea which could be more related to her gastroparesis. Coronary artery disease: Continue with her isosorbide, aspirin, statin Ischemic cardiomyopathy: Stable with no evidence of decompensated failure. Continue Entresto, Coreg Diabetic gastroparesis: I had this conversation with the patient in the past. I explained to her the pathology and natural history of that. She is Reglan for this intermittently. Diabetes mellitus: Patient has an insulin pump which she apparently did not bring with her. Her blood sugars here have been running well over 300 in spite of aggressive sliding scale. We will add Lantus coverage.
[2020-06-29 16:53] VITALS: BP 136/91; TEMP 97.8
[2020-06-29] MEDS ORDERED: Insulin Glargine 30 UNITS in Pre-Filled Syringe 1 EACH SC SCH (21:00)
[2020-06-29] MEDS ORDERED: FLU VACC QS2020-21(6MOS UP)/PF 60 MCG/0.5 ML SYRINGE IM ONE (21:00)
--- NOTE | 2020-06-29 23:36 | CON ---
DATE OF CONSULTATION: HISTORY: Yuli Hayes is an unfortunate 49 year-old female with coronary artery disease, status post multiple interventions, noncompliance with dual antiplatelet therapy and acute stent thrombosis and placement of an ICD (single chamber). Please see my dictation from October 2019 for very extensive history of her coronary problems. Over the last two day, she has had fairly constant left-sided chest discomfort that at times would have lightning type pain that would last 1 or 2 seconds. Cardiac enzymes have been unremarkable. At the present time, she denies any discomfort. PHYSICAL EXAMINATION: VITAL SIGNS: Blood pressure 136/91, pulse 78. HEENT: PERRL. NECK: Supple. CHEST: Clear. CARDIAC: S1 and S2 normal without any S3, S4, or murmurs. ABDOMEN: Obese. Normal bowel sounds. No tenderness. EXTREMITIES: Revealed no clubbing, cyanosis, or edema. NEUROLOGIC: Grossly intact. LABORATORY DATA: EKG reveals normal sinus rhythm with left axis deviation, poor R-wave progression consistent with septal infarction. CBC is unremarkable. Sodium 132, potassium 4.8, chloride 101, carbon dioxide 19, BUN 18, creatinine 1.13. Cholesterol 274, triglycerides 321, LDL 154, HDL 56. Troponin I is normal x3. IMPRESSION: 1. Noncardiac chest pain. This seemed to be significantly associated with nausea and at times over the last several weeks she has had vomiting. 2. Extensive cardiac history as outlined previously with multiple stent placement. 3. Status post single-chamber ICD placement. 4. Ischemic cardiomyopathy. 5. Hyperlipidemia, under very poor control. 6. Questionable compliance with medications in the past. 7. Hypertension. 8. Diabetes. 9. Obesity. 10. Positive family history. PLAN: I do not feel that this discomfort is cardiac in nature and would not recommend any further cardiac evaluation. I do feel that she may discontinue the Brilinta at this time, said she cannot afford it and she is a year and a half out from last stent placement. Job ID: [id number] [id number]
--- NOTE | 2020-07-01 12:10 | PDOC.DS.DS ---
Provider Date of Admission: 06/28/20 18:41 Date of Discharge: 06/29/20 Admitting Provider: Gabriel Prince MD Consultations: Cardiology Primary Care Physician: Yohana Betts Course Hospital Course: Chest pain: Patient has a history of significant coronary artery disease and ischemic cardiomyopathy. Symptoms sounded atypical. More associated with nausea Troponins were negative. Given her history had her seen by her breeding manager, Dr. Matute. He did not believe these were cardiac related symptoms and no further work-up was indicated. Coronary artery disease: Continued with her isosorbide, aspirin, statin Ischemic cardiomyopathy: Stable with no evidence of decompensated failure. Continued Entresto, Coreg Diabetic gastroparesis: I had this conversation with the patient in the past. I explained to her the pathology and natural history of that. She is Reglan for this intermittently. Diabetes mellitus: Patient has an insulin pump which she apparently did not bring with her. Her blood sugars were running well over 300 in spite of aggressive sliding scale . Added additional Lantus coverage. Patient was to resume her pump at the time of discharge from the hospital. Resuscitation Status: 06/28/20 19:49 Resuscitation Status Routine Co-Sign Provider: Resuscitation Status: FULL: Full Resuscitation Discussed with: patient Lab Results: 06/29/20 04:08 06/29/20 04:08 Vitals: Weight Weight 261 lb 14.4 oz Physical Exam: The patient was seen and examined on the day of discharge. General Appearance: NAD, awake alert Respiratory: CTAB, no wheezes, no rales, no ronchi, normal chest expansion Cardiovascular: RRR, no murmur, no gallops, no rubs, normal peripheral pulses Gastrointestinal: soft, non-tender, non-distended, normal bowel sounds Extremities: no cyanosis, no clubbing, no edema Musculoskeletal: normal tone, normal strength, no muscle wasting PSYCH: normal affect, normal behavior, A&O x 3 Problem (1) Chest pain Code(s): R07.9 - CHEST PAIN, UNSPECIFIED Status: Acute (2) Ischemic cardiomyopathy Code(s): I25.5 - ISCHEMIC CARDIOMYOPATHY Status: Acute (3) CAD (coronary artery disease) Code(s): I25.10 - ATHSCL HEART DISEASE OF [place] CORONARY ARTERY W/O ANG PCTRS Status: Chronic (4) Diabetic gastroparesis Code(s): E11.43 - TYPE 2 DIABETES W DIABETIC AUTONOMIC (POLY)NEUROPATHY; K31.84 - GASTROPARESIS Status: Acute (5) Anxiety and depression Code(s): F41.9 - ANXIETY DISORDER, UNSPECIFIED; F32.9 - MAJOR DEPRESSIVE DISORDER, SINGLE EPISODE, UNSPECIFIED Status: Chronic (6) DM2 (diabetes mellitus, type 2) Status: Chronic (7) HLD (hyperlipidemia) Code(s): E78.5 - HYPERLIPIDEMIA, UNSPECIFIED Status: Chronic (8) HTN (hypertension) Code(s): I10 - ESSENTIAL (PRIMARY) HYPERTENSION Status: Chronic (9) AICD (automatic cardioverter/defibrillator) present Code(s): Z95.810 - PRESENCE OF AUTOMATIC (IMPLANTABLE) CARDIAC DEFIBRILLATOR Status: Chronic (10) CKD (chronic kidney disease) stage 3, GFR 30-59 ml/min Code(s): N18.3 - CHRONIC KIDNEY DISEASE, STAGE 3 (MODERATE) * DO NOT USE * Status: Chronic (11) JAEL on CPAP Code(s): G47.33 - OBSTRUCTIVE SLEEP APNEA (ADULT) (PEDIATRIC); Z99.89 - DEPENDENCE ON OTHER ENABLING MACHINES AND DEVICES Status: Chronic Plan Home Medications: Medication Instructions Recorded Confirmed Type Sertraline HCl [Zoloft] 150 mg PO DAILY 05/05/18 06/28/20 History Isosorbide Mononitrate [Imdur] 60 mg PO DAILY 11/08/18 06/28/20 History Carvedilol [Coreg] 12.5 mg PO BID 03/27/19 06/28/20 History Bumetanide [Bumex] 1 mg PO BID-AC 04/26/19 06/28/20 History Nitroglycerin [Nitrostat] 0.4 mg PO Q5MIN PRN #10 tab 07/02/19 06/28/20 Rx Aspirin [Ecotrin Low Strength] 81 mg PO DAILY 07/27/19 06/28/20 History Pantoprazole Sodium 40 mg PO DAILY 10/17/19 06/28/20 History Topiramate [Topamax] 25 mg PO HS 10/17/19 06/28/20 History Ezetimibe 10 mg PO DAILY 12/18/19 06/28/20 History Ticagrelor [Brilinta] 90 mg PO BID 12/18/19 06/28/20 History Ferrous Sulfate [Feosol] 325 mg PO BID-WM #60 tab 01/04/20 06/28/20 Rx Rosuvastatin [Crestor] 40 mg PO DAILY #30 tab 02/06/20 06/28/20 Rx Sacubitril/Valsartan 49/51 1 tab PO BID 30 Days #60 tab 02/06/20 06/28/20 Rx [Entresto 49 mg-51 mg Tablet] Butalbital/Acetaminophen/Caffe 1 tab PO Q4HR PRN 06/28/20 06/28/20 History [Fioricet] Insulin Aspart [Novolog] 100 unit SQ ASDIR 06/28/20 06/28/20 History Meclizine HCl 50 mg PO Q8H PRN 06/28/20 06/28/20 History Ranolazine [Ranexa] 1,000 mg PO BID 06/28/20 06/28/20 History Semaglutide [Ozempic] 1 mg SQ Q7DAYS 06/28/20 06/28/20 History Spironolactone [Aldactone] 25 mg PO DAILY 06/28/20 06/28/20 History Allergies: diphenhydramine [From Benadryl] Adverse Reaction (Mild, Verified 06/29/20 08:44) pt states it "irritates me" naproxen Adverse Reaction (Mild, Verified 06/29/20 08:44) pt states it makes her "not feel well" Activity:: Activity as Tolerated Nourishment:: Diabetic Diet, Heart Healthy Diet Referrals: Cardiac Rehab - [place] [Outside] - 7 Days (Your doctor has ordered outpatient cardiac rehab for you to begin within 1-2 weeks after you go home from the hospital. The location nearest to you is the [facility]. The front office in [place] will call you in 3-5 days to get you scheduled for your evaluation. If you do not receive a call, please reach out to them at [phone] and request an appointment. Should you have any trouble or need assistance, please call the cardiac rehab main line in [place] at [phone]) Yohana Betts MD [Primary Care Provider] - 7 Days (Call office to schedule a follow up appointment. ) Disposition: HOME Quality CORE MEASURES:: N/A
--- NOTE | 2020-07-10 16:42 | EKG ---
Test Reason : Blood Pressure : / mmHG Vent. Rate : 081 BPM Atrial Rate : 081 BPM P-R Int : 206 ms QRS Dur : 094 ms QT Int : 428 ms P-R-T Axes : 004 -36 100 degrees QTc Int : 497 ms Normal sinus rhythm Left axis deviation Moderate voltage criteria for LVH, may be normal variant Cannot rule out Septal infarct , age undetermined T wave abnormality, consider lateral ischemia Abnormal ECG Confirmed by PATRICK LEE, FREDY Pardo ([id number]), managing editor SUSAN ACOSTA ([id number]) on 07/10/2020 4:42:06 PM Referred By: Confirmed By:FREDY NGUYEN MD
== END 2020-06-29 19:43 | disposition home or self-care (01) ==
LOC: ERS 16:56 → 2NO 18:41
PROVIDERS: ADMIT Internal Medicine; ATTEND Internal Medicine
DX: R07.89 Other chest pain (principal); I25.5 Ischemic cardiomyopathy; I25.10 Atherosclerotic heart disease of native coronary artery without angina pectoris; E11.43 Type 2 diabetes mellitus with diabetic autonomic (poly)neuropathy; K31.84 Gastroparesis; F41.9 Anxiety disorder, unspecified; F32.9 Major depressive disorder, single episode, unspecified; E11.65 Type 2 diabetes mellitus with hyperglycemia; E78.5 Hyperlipidemia, unspecified; I13.0 Hypertensive heart and chronic kidney disease with heart failure and stage 1 through stage 4 chronic kidney disease, or unspecified chronic kidney disease; E11.22 Type 2 diabetes mellitus with diabetic chronic kidney disease; N18.30 Chronic kidney disease, stage 3 unspecified; I50.22 Chronic systolic (congestive) heart failure; G47.33 Obstructive sleep apnea (adult) (pediatric); I25.2 Old myocardial infarction; G43.909 Migraine, unspecified, not intractable, without status migrainosus; E66.9 Obesity, unspecified; Z68.41 Body mass index [BMI] 40.0-44.9, adult; Z91.14 Patient's other noncompliance with medication regimen; Z79.02 Long term (current) use of antithrombotics/antiplatelets; Z79.4 Long term (current) use of insulin; Z79.82 Long term (current) use of aspirin; Z79.899 Other long term (current) drug therapy; Z88.6 Allergy status to analgesic agent; Z88.8 Allergy status to other drugs, medicaments and biological substances; Z95.5 Presence of coronary angioplasty implant and graft; Z95.810 Presence of automatic (implantable) cardiac defibrillator; Z96.41 Presence of insulin pump (external) (internal); Z99.89 Dependence on other enabling machines and devices; Z20.822 Contact with and (suspected) exposure to COVID-19
CPT/HCPCS: 36415; 36416; 71045; 80048; 80053; 80061; 81001; 82550; 83690; 83735; 83880; 84443; 84484; 85025; 87635; 90471; 90662; 93005; 93798; 96374; G0008; G0378; J1815; Q0162; U0003; U0005

== ENCOUNTER 2020-10-25 17:54 | Emergency (ER) | payer BC, MEDICAID ==
[2020-10-25] MEDS ORDERED: Promethazine HCl 25 MG/ML VIAL ONE (18:44)
[2020-10-25 19:11] LABS: #Basophils 0.1 thou/uL (0.0-0.2); #Eosinphils 0.5 thou/uL (0.0-0.7); #Lymphocytes 2.2 thou/uL (1.20-3.40); #Monocytes 0.4 thou/uL (0.11-0.59); #Neutrophils 5.8 thou/uL (1.40-6.50); %Basophils 0.7 % (0.0-1.0); %Eosinophils 5.7 % (0.0-10.0); %Lymphocytes 24.8 % (21.0-51.0); %Monocytes 4.8 % (0.0-10.0); Mean Corpuscular HGB CONC 34.5 g/dL (32.0-36.0); Mean Corpuscular Hemoglobin 27.2 pg (27.0-31.0); Mean Corpuscular Volume 78.9 fL (78.0-98.0); Mean Platelet Volume 9.7 fL (7.4-10.4); Platelet Count 139 thou/uL (130-400); RBC Distribution Width 12.8 % (11.5-14.5); Red Blood Cell (RBC) Count 5.15 mill/uL (4.20-5.40)
[2020-10-25 19:33] LABS: ALT (SGPT) 16 U/L (8-55); AST (SGOT) 13 U/L (5-34); Albumin 3.1 g/dL (3.5-5.0); Alkaline Phosphatase 124 U/L (40-110); Anion Gap 15 mmol/L (10-20); BUN (Urea Nitrogen) 21 mg/dL (7.0-18.7); Bilirubin, Total 0.6 mg/dL (0.2-1.2); Calc. Creatinine Clearance 0 mL/min (70-130); Calcium 8.9 mg/dL (7.8-10.44); Carbon Dioxide 26 mmol/L (22-29); Chloride 90 mmol/L (98-107); Globulin 3.3 g/dL (2.4-3.5); Lipase 72 U/L (8-78); Potassium 4.6 mmol/L (3.5-5.1); Protein, Total 6.4 g/dL (6.0-8.3); Sodium 126 mmol/L (136-145)
[2020-10-25 19:43] LABS: Glucose 753 mg/dL (70-105)
[2020-10-25 19:51] LABS: SARS-CoV-2 NAA Rapid Test Not Detected (NotDetected)
[2020-10-25 20:03] LABS: Actual Bicarbonate (HCO3v) 29 mEq/L (22-28); Analyzer IN Cardio ER; Base Excess 2.4 mEq/L (-2.0 to +3.0); Calcium, Ionized (venous) 1.15 mmol/L (1.16-1.32); Chloride (VBG) 92 mmol/L (98-106); Potassium (VBG) 4.29 mmol/L (3.70-5.30); Sodium 128.9 mmol/L (133-146); pH (venous) 7.34 (7.32-7.43)
[2020-10-25 20:13] LABS: Phosphorus 4.3 mg/dL (2.3-4.7)
== END 2020-10-25 21:47 | disposition home or self-care (01) ==
LOC: ERS 17:54
DX: J06.9 Acute upper respiratory infection, unspecified (principal); R11.2 Nausea with vomiting, unspecified; Z20.822 Contact with and (suspected) exposure to COVID-19; I25.2 Old myocardial infarction; E11.9 Type 2 diabetes mellitus without complications; I11.0 Hypertensive heart disease with heart failure; I50.9 Heart failure, unspecified; E78.5 Hyperlipidemia, unspecified; Z79.82 Long term (current) use of aspirin; Z79.899 Other long term (current) drug therapy
CPT/HCPCS: 0240U; 71045; 80053; 82010; 82805; 83605; 83690; 83735; 83880; 84100; 84484; 85025; 93005; 94760; 96365; J2550

== ENCOUNTER 2020-12-24 13:31 | Outpatient (CLI) | payer MEDICAID ==
[2020-12-24 15:07] LABS: Hemoglobin 13.1 g/dL (12.0-15.5); Mean Corpuscular HGB CONC 32.5 g/dL (32.0-36.0); Mean Corpuscular Hemoglobin 25.4 pg (27.0-33.0); Mean Corpuscular Volume 78.1 fl (81.6-98.3); Mean Platelet Volume 10.7 fl (7.4-10.4); Platelet Count 157 10x3/uL (150-450); RBC Distribution Width 12.7 % (11.5-14.5); Red Blood Cell (RBC) Count 5.16 10x6/uL (3.90-5.03); White Blood Cell (WBC) Count 8.4 10x3/uL (3.5-10.5)
[2020-12-24 15:17] LABS: Anion Gap 14 mmol/L (10-20); BUN (Urea Nitrogen) 13 mg/dL (9.8-20.1); Calc. Creatinine Clearance 0 mL/min (70-130); Calcium 9.5 mg/dL (7.8-10.44); Carbon Dioxide 26 mmol/L (22-29); Chloride 103 mmol/L (98-107); Glucose 179 mg/dL (70-105); Potassium 4.1 mmol/L (3.5-5.1); Sodium 139 mmol/L (136-145)
[2020-12-25 14:40] LABS: SARS-CoV-2 PCR by NAA Not Detected (NotDetected)
[2020-12-27 11:21] VITALS: BMI 42.7
== END 2020-12-24 13:32 | disposition home or self-care (01) ==
LOC: LABBT 13:31
PROVIDERS: ATTEND Internal Medicine Cardiovascular Disease
DX: Z01.818 Encounter for other preprocedural examination (principal); I07.8 Other rheumatic tricuspid valve diseases; Z20.822 Contact with and (suspected) exposure to COVID-19
CPT/HCPCS: 80048; 85027; 93005; 93010; U0003; U0005

== ENCOUNTER 2021-03-25 17:37 | Emergency (ER) | payer MEDICAID ==
[2021-03-25 19:04] LABS: #Basophils 0.1 thou/uL (0.0-0.2); #Eosinphils 0.5 thou/uL (0.0-0.7); #Lymphocytes 2.3 thou/uL (1.20-3.40); #Monocytes 0.4 thou/uL (0.11-0.59); #Neutrophils 5.7 thou/uL (1.40-6.50); %Basophils 0.6 % (0.0-1.0); %Eosinophils 5.3 % (0.0-10.0); %Monocytes 4.7 % (0.0-10.0); %Neutrophils 63.5 % (42.0-75.0); Hemoglobin 13.5 g/dL (12.0-16.0); Mean Corpuscular HGB CONC 34.1 g/dL (32.0-36.0); Mean Corpuscular Hemoglobin 26.6 pg (27.0-31.0); Mean Platelet Volume 10.2 fL (7.4-10.4); Platelet Count 113 thou/uL (130-400); RBC Distribution Width 14.2 % (11.5-14.5); Red Blood Cell (RBC) Count 5.06 mill/uL (4.20-5.40); White Blood Cell (WBC) Count 8.9 thou/uL (4.8-10.8)
[2021-03-25 19:41] LABS: ALT (SGPT) 13 U/L (8-55); AST (SGOT) 13 U/L (5-34); Albumin 3.1 g/dL (3.5-5.0); Alkaline Phosphatase 113 U/L (40-110); Anion Gap 16 mmol/L (10-20); BUN (Urea Nitrogen) 24 mg/dL (9.8-20.1); Bilirubin, Total 0.3 mg/dL (0.2-1.2); CK (CPK) 48 U/L (29-168); Calc. Creatinine Clearance 0 mL/min (70-130); Calcium 9.1 mg/dL (7.8-10.44); Carbon Dioxide 25 mmol/L (22-29); Chloride 91 mmol/L (98-107); Globulin 3.6 g/dL (2.4-3.5); Magnesium 1.9 mg/dL (1.6-2.6); Potassium 4.1 mmol/L (3.5-5.1); Protein, Total 6.7 g/dL (6.0-8.3); Sodium 128 mmol/L (136-145)
[2021-03-25 19:48] LABS: Glucose 627 mg/dL (70-105)
[2021-03-25] MEDS ORDERED: Insulin Regular 300 UNITS/3 ML VIAL ONE ×2 (20:32→20:35)
== END 2021-03-26 00:25 | disposition home or self-care (01) ==
LOC: ERS 17:37
DX: E11.65 Type 2 diabetes mellitus with hyperglycemia (principal); K21.9 Gastro-esophageal reflux disease without esophagitis; I25.2 Old myocardial infarction; I13.0 Hypertensive heart and chronic kidney disease with heart failure and stage 1 through stage 4 chronic kidney disease, or unspecified chronic kidney disease; E11.22 Type 2 diabetes mellitus with diabetic chronic kidney disease; N18.9 Chronic kidney disease, unspecified; I50.9 Heart failure, unspecified; G43.909 Migraine, unspecified, not intractable, without status migrainosus; I25.10 Atherosclerotic heart disease of native coronary artery without angina pectoris; E78.5 Hyperlipidemia, unspecified; E78.00 Pure hypercholesterolemia, unspecified; Z79.4 Long term (current) use of insulin
CPT/HCPCS: 36415; 36416; 71045; 80053; 82550; 83735; 83880; 84484; 85025; 93005; J1815

== ENCOUNTER 2021-05-23 15:55 | Emergency (ER) | payer MEDICAID ==
[2021-05-23] MEDS ORDERED: Acetaminophen 500 MG TAB ONE (18:03)
== END 2021-05-23 19:25 | disposition home or self-care (01) ==
LOC: ERS 15:55
DX: L03.116 Cellulitis of left lower limb (principal); I13.0 Hypertensive heart and chronic kidney disease with heart failure and stage 1 through stage 4 chronic kidney disease, or unspecified chronic kidney disease; I50.9 Heart failure, unspecified; N18.30 Chronic kidney disease, stage 3 unspecified; I25.2 Old myocardial infarction; I25.10 Atherosclerotic heart disease of native coronary artery without angina pectoris; E11.9 Type 2 diabetes mellitus without complications; K21.9 Gastro-esophageal reflux disease without esophagitis; G43.909 Migraine, unspecified, not intractable, without status migrainosus; E78.5 Hyperlipidemia, unspecified; E78.00 Pure hypercholesterolemia, unspecified; Z79.82 Long term (current) use of aspirin; Z79.4 Long term (current) use of insulin; Z79.899 Other long term (current) drug therapy

== ENCOUNTER 2021-05-25 21:46 | Emergency (ER) | payer MEDICAID ==
[2021-05-26] MEDS ORDERED: HYDROcodone/Acetaminophen 5/325 mg Tablet ONE (00:45)
== END 2021-05-26 00:50 | disposition home or self-care (01) ==
LOC: ERS 21:46
DX: L03.116 Cellulitis of left lower limb (principal); I13.0 Hypertensive heart and chronic kidney disease with heart failure and stage 1 through stage 4 chronic kidney disease, or unspecified chronic kidney disease; I50.9 Heart failure, unspecified; N18.30 Chronic kidney disease, stage 3 unspecified; I25.10 Atherosclerotic heart disease of native coronary artery without angina pectoris; K21.9 Gastro-esophageal reflux disease without esophagitis; I25.2 Old myocardial infarction; E11.9 Type 2 diabetes mellitus without complications; G43.909 Migraine, unspecified, not intractable, without status migrainosus; E78.5 Hyperlipidemia, unspecified; E78.00 Pure hypercholesterolemia, unspecified; Z79.01 Long term (current) use of anticoagulants; Z79.82 Long term (current) use of aspirin; Z79.4 Long term (current) use of insulin; Z79.899 Other long term (current) drug therapy

== ENCOUNTER 2021-07-14 15:01 | Emergency (ER) | payer MEDICAID ==
[2021-07-14 16:21] LABS: #Basophils 0.1 thou/uL (0.0-0.2); #Eosinphils 0.3 thou/uL (0.0-0.7); #Monocytes 0.5 thou/uL (0.11-0.59); #Neutrophils 6.6 thou/uL (1.40-6.50); %Basophils 0.6 % (0.0-1.0); %Eosinophils 3.4 % (0.0-10.0); %Lymphocytes 20.8 % (21.0-51.0); %Monocytes 4.9 % (0.0-10.0); %Neutrophils 70.3 % (42.0-75.0); Hemoglobin 12.2 g/dL (12.0-16.0); Mean Corpuscular HGB CONC 31.4 g/dL (32.0-36.0); Mean Corpuscular Hemoglobin 24.1 pg (27.0-31.0); Mean Corpuscular Volume 76.9 fL (78.0-98.0); Mean Platelet Volume 9.1 fL (7.4-10.4); Platelet Count 146 thou/uL (130-400); RBC Distribution Width 14.1 % (11.5-14.5); Red Blood Cell (RBC) Count 5.04 mill/uL (4.20-5.40); White Blood Cell (WBC) Count 9.4 thou/uL (4.8-10.8)
[2021-07-14 16:37] LABS: ALT (SGPT) 9 U/L (8-55); AST (SGOT) 14 U/L (5-34); Albumin 3.2 g/dL (3.5-5.0); Alkaline Phosphatase 82 U/L (40-110); Anion Gap 12 mmol/L (10-20); BUN (Urea Nitrogen) 16 mg/dL (9.8-20.1); Bilirubin, Total 0.6 mg/dL (0.2-1.2); Calc. Creatinine Clearance 0 mL/min (70-130); Calcium 9.2 mg/dL (7.8-10.44); Carbon Dioxide 25 mmol/L (22-29); Chloride 102 mmol/L (98-107); Globulin 4.1 g/dL (2.4-3.5); Glucose 136 mg/dL (70-105); Lipase 54 U/L (8-78); Magnesium 2.3 mg/dL (1.6-2.6); Potassium 4.6 mmol/L (3.5-5.1); Protein, Total 7.3 g/dL (6.0-8.3); Sodium 134 mmol/L (136-145)
[2021-07-14] MEDS ORDERED: Acetaminophen 500 MG TAB ONE (18:05)
[2021-07-15 00:12] LABS: SARS-CoV-2 PCR by NAA Not Detected (NotDetected)
== END 2021-07-14 19:15 | disposition home or self-care (01) ==
LOC: ERS 15:01
DX: R51.9 Headache, unspecified (principal); H53.142 Visual discomfort, left eye; R42 Dizziness and giddiness; R53.1 Weakness; R11.0 Nausea; K21.9 Gastro-esophageal reflux disease without esophagitis; I13.0 Hypertensive heart and chronic kidney disease with heart failure and stage 1 through stage 4 chronic kidney disease, or unspecified chronic kidney disease; E11.22 Type 2 diabetes mellitus with diabetic chronic kidney disease; N18.30 Chronic kidney disease, stage 3 unspecified; I50.9 Heart failure, unspecified; I25.10 Atherosclerotic heart disease of native coronary artery without angina pectoris; E78.5 Hyperlipidemia, unspecified; E78.00 Pure hypercholesterolemia, unspecified; I25.2 Old myocardial infarction; Z20.822 Contact with and (suspected) exposure to COVID-19; Z95.5 Presence of coronary angioplasty implant and graft; Z79.4 Long term (current) use of insulin; Z95.810 Presence of automatic (implantable) cardiac defibrillator; Z79.01 Long term (current) use of anticoagulants; Z79.899 Other long term (current) drug therapy
CPT/HCPCS: 70450; 71045; 80053; 83605; 83690; 83735; 83880; 84484; 85025; 93005; U0003; U0005

== ENCOUNTER 2021-11-03 09:27 | Outpatient (CLI) | payer MEDICAID | END 2021-11-03 09:28 | disposition home or self-care (01) | LOC: BICMAMMO 09:27 | PROVIDERS: ATTEND Registered Nurse | DX: N63.21 Unspecified lump in the left breast, upper outer quadrant (principal) | CPT/HCPCS: 77066; G0279 ==

== ENCOUNTER 2021-12-16 13:54 | Inpatient (IN) | payer OTHER ==
[2021-12-16] MEDS ORDERED: Nitroglycerin 2% Ointment 1 INCH/1 GM Packet ONE (14:49)
[2021-12-16] MEDS ORDERED: Furosemide 40 MG/4 ML VIAL ONE (14:49)
[2021-12-16] MEDS ORDERED: Aspirin Chewable 81 MG TAB ONE (14:49)
[2021-12-16 14:52] LABS: #Basophils 0.1 thou/uL (0.0-0.2); #Eosinphils 0.5 thou/uL (0.0-0.7); #Lymphocytes 1.4 thou/uL (1.20-3.40); #Monocytes 0.3 thou/uL (0.11-0.59); #Neutrophils 6.2 thou/uL (1.40-6.50); %Basophils 0.9 % (0.0-1.0); %Eosinophils 5.6 % (0.0-10.0); %Lymphocytes 16.4 % (21.0-51.0); %Monocytes 3.9 % (0.0-10.0); %Neutrophils 73.3 % (42.0-75.0); Hemoglobin 9.8 g/dL (12.0-16.0); Mean Corpuscular HGB CONC 31.8 g/dL (32.0-36.0); Mean Corpuscular Hemoglobin 24.7 pg (27.0-31.0); Mean Corpuscular Volume 77.6 fL (78.0-98.0); Mean Platelet Volume 10.7 fL (7.4-10.4); Platelet Count 119 thou/uL (130-400); RBC Distribution Width 15.8 % (11.5-14.5); Red Blood Cell (RBC) Count 3.96 mill/uL (4.20-5.40); White Blood Cell (WBC) Count 8.4 thou/uL (4.8-10.8)
[2021-12-16 15:16] LABS: ALT (SGPT) 19 U/L (8-55); AST (SGOT) 25 U/L (5-34); Albumin 2.7 g/dL (3.5-5.0); Alkaline Phosphatase 110 U/L (40-110); Anion Gap 14 mmol/L (10-20); BUN (Urea Nitrogen) 23 mg/dL (9.8-20.1); Bilirubin, Total 0.8 mg/dL (0.2-1.2); Calc. Creatinine Clearance 0 mL/min (70-130); Calcium 8.3 mg/dL (7.8-10.44); Carbon Dioxide 21 mmol/L (22-29); Chloride 107 mmol/L (98-107); Estimated GFR 37; Globulin 3.1 g/dL (2.4-3.5); Glucose 215 mg/dL (70-105); Potassium 3.9 mmol/L (3.5-5.1); Protein, Total 5.8 g/dL (6.0-8.3); Sodium 138 mmol/L (136-145)
[2021-12-16 15:43] LABS: CKMB 2.4 ng/mL (0-6.6)
[2021-12-16] MEDS ORDERED: Enoxaparin Sodium 80 MG/0.8 ML SYRINGE ONE (15:45)
[2021-12-16] MEDS ORDERED: Enoxaparin Sodium 40 MG/0.4 ML SYRINGE ONE (15:45)
[2021-12-16] MEDS ORDERED: Acetaminophen 325 MG TAB PO PRN (16:32)
[2021-12-16] MEDS ORDERED: Acetaminophen 650 MG Suppository PR PRN (16:32)
[2021-12-16] MEDS ORDERED: Ondansetron PF 4 MG/2 ML Vial IVP PRN (16:32)
[2021-12-16] MEDS ORDERED: Carvedilol 25 MG TAB PO SCH ×2 (16:45→21:00)
[2021-12-16] MEDS ORDERED: Nitroglycerin 50 MG/250 ML BOT 250 ML ONE (17:32)
[2021-12-16] MEDS ORDERED: Morphine 2 MG/ML VIAL ONE (18:00)
[2021-12-16 18:09] LABS: Troponin I 5.245 ng/mL (< 0.028)
[2021-12-16] MEDS ORDERED: Furosemide 100 MG/10 ML VIAL ONE (18:22)
[2021-12-16 21:01] LABS: CKMB 2.1 ng/mL (0-6.6)
[2021-12-16 21:07] LABS: Troponin I 5.932 ng/mL (< 0.028)
[2021-12-16] MEDS: Ondansetron ODT 4 MG TAB PO PRN (21:17)
[2021-12-16 21:44] LABS: SARS-CoV-2 NAA Rapid Test Not Detected (NotDetected)
[2021-12-16] MEDS: Sacubitril 49 MG/Valsartan 51 MG TABLET PO SCH (21:56)
[2021-12-16] MEDS: Topiramate 25 MG TAB PO SCH (21:56)
[2021-12-16] MEDS: Nitroglycerin 2% Ointment 1 INCH/1 GM Packet TOP SCH (21:56)
[2021-12-16] MEDS: Rosuvastatin 20 MG TAB PO SCH (21:56)
[2021-12-16 22:40] VITALS: BMI 50.8
[2021-12-16] MEDS ORDERED: Nitroglycerin 50 MG/250 ML BOT 250 ML IVPB SCH (23:15)
[2021-12-17] MEDS: Morphine 2 MG/ML VIAL SLOW IVP PRN (03:35)
[2021-12-17 04:19] LABS: Anion Gap 15 mmol/L (10-20); BUN (Urea Nitrogen) 25 mg/dL (9.8-20.1); Calc. Creatinine Clearance 74 mL/min (70-130); Calcium 8.6 mg/dL (7.8-10.44); Carbon Dioxide 22 mmol/L (22-29); Cardiac Risk 5.3 (Less than 4.5); Chloride 107 mmol/L (98-107); Cholesterol 175 mg/dl (< 200 Desired); Estimated GFR 34; Glucose 83 mg/dL (70-105); HDL Cholesterol 33 mg/dL (>60 Neg Risk); LDL Cholesterol, Calculated 119 mg/dL; Sodium 140 mmol/L (136-145); Triglycerides 113 mg/dL (Less than 150)
[2021-12-17 05:17] LABS: Hemoglobin 9.6 g/dL (12.0-16.0); Mean Corpuscular HGB CONC 32.3 g/dL (32.0-36.0); Mean Corpuscular Hemoglobin 25.8 pg (27.0-31.0); Mean Corpuscular Volume 79.9 fL (78.0-98.0); Mean Platelet Volume 10.8 fL (7.4-10.4); Platelet Count 121 thou/uL (130-400); RBC Distribution Width 16.6 % (11.5-14.5); Red Blood Cell (RBC) Count 3.71 mill/uL (4.20-5.40); White Blood Cell (WBC) Count 7.2 thou/uL (4.8-10.8)
[2021-12-17 05:18] LABS: Band 16 % (5-11); Eosinophils 8 % (0-10); Lymphocytes 22 % (21-51); MDiff Complete? YES; Monocytes 4 % (0-10); Neutrophil 48 % (42-75)
[2021-12-17] MEDS ORDERED: Bumetanide 1 MG TAB PO SCH (07:45)
[2021-12-17 08:14] LABS: CKMB 1.9 ng/mL (0-6.6)
[2021-12-17] MEDS: Enoxaparin Sodium 30 MG/0.3 ML SYRINGE SC SCH ×2 (08:30→20:37)
[2021-12-17] MEDS: Nitroglycerin 2% Ointment 1 INCH/1 GM Packet TOP SCH ×2 (08:30→20:38)
[2021-12-17] MEDS: Enoxaparin Sodium 100 MG/ML SYRINGE SC SCH ×2 (08:30→20:37)
[2021-12-17] MEDS: Carvedilol 25 MG TAB PO SCH ×2 (08:31→20:37)
[2021-12-17] MEDS: Aspirin 81 mg Enteric Coated Tablet PO SCH (08:31)
[2021-12-17] MEDS: Sacubitril 49 MG/Valsartan 51 MG TABLET PO SCH ×2 (08:31→20:37)
[2021-12-17] MEDS ORDERED: Aspirin 81 mg Enteric Coated Tablet PO SCH (09:00)
[2021-12-17] MEDS: Morphine 4 MG/ML VIAL SLOW IVP PRN (10:10)
[2021-12-17] MEDS: Empagliflozin 10 MG TAB PO SCH (10:14)
[2021-12-17] MEDS: Bumetanide 1 MG TAB PO SCH (16:00)
[2021-12-17 17:39] LABS: CKMB 1.9 ng/mL (0-6.6)
[2021-12-17] MEDS: Rosuvastatin 20 MG TAB PO SCH (20:37)
[2021-12-17] MEDS: Topiramate 25 MG TAB PO SCH (20:37)
[2021-12-18 05:40] LABS: #Basophils 0.1 thou/uL (0.0-0.2); #Eosinphils 0.5 thou/uL (0.0-0.7); #Lymphocytes 1.3 thou/uL (1.20-3.40); #Monocytes 0.4 thou/uL (0.11-0.59); #Neutrophils 6.3 thou/uL (1.40-6.50); %Basophils 0.7 % (0.0-1.0); %Eosinophils 6.2 % (0.0-10.0); %Lymphocytes 14.6 % (21.0-51.0); %Monocytes 4.3 % (0.0-10.0); %Neutrophils 74.2 % (42.0-75.0); Hemoglobin 10.2 g/dL (12.0-16.0); Mean Corpuscular HGB CONC 31.1 g/dL (32.0-36.0); Mean Corpuscular Volume 80.2 fL (78.0-98.0); Mean Platelet Volume 10.6 fL (7.4-10.4); Platelet Count 132 thou/uL (130-400); RBC Distribution Width 15.9 % (11.5-14.5); White Blood Cell (WBC) Count 8.5 thou/uL (4.8-10.8)
[2021-12-18 06:00] LABS: Anion Gap 13 mmol/L (10-20); BUN (Urea Nitrogen) 27 mg/dL (9.8-20.1); Calc. Creatinine Clearance 59 mL/min (70-130); Calcium 8.6 mg/dL (7.8-10.44); Carbon Dioxide 26 mmol/L (22-29); Chloride 104 mmol/L (98-107); Estimated GFR 26; Glucose 130 mg/dL (70-105); Potassium 4.3 mmol/L (3.5-5.1); Sodium 139 mmol/L (136-145)
[2021-12-18] MEDS: Aspirin 81 mg Enteric Coated Tablet PO SCH (08:18)
[2021-12-18] MEDS: Bumetanide 1 MG TAB PO SCH (08:18)
[2021-12-18] MEDS: Empagliflozin 10 MG TAB PO SCH (08:19)
[2021-12-18] MEDS: Carvedilol 25 MG TAB PO SCH ×2 (08:19→20:10)
[2021-12-18] MEDS: Enoxaparin Sodium 100 MG/ML SYRINGE SC SCH (08:20)
[2021-12-18] MEDS: Nitroglycerin 2% Ointment 1 INCH/1 GM Packet TOP SCH ×2 (08:20→20:10)
[2021-12-18] MEDS: Sacubitril 49 MG/Valsartan 51 MG TABLET PO SCH ×2 (08:20→20:10)
[2021-12-18] MEDS: Enoxaparin Sodium 30 MG/0.3 ML SYRINGE SC SCH (08:21)
[2021-12-18] MEDS ORDERED: Metolazone 2.5 MG TAB PO SCH (08:30)
[2021-12-18] MEDS ORDERED: Sodium Chloride 0.9% 500 ML IV SCH (10:45)
[2021-12-18] MEDS: Rosuvastatin 20 MG TAB PO SCH (20:10)
[2021-12-18] MEDS: Topiramate 25 MG TAB PO SCH (20:10)
[2021-12-19] MEDS: Morphine 4 MG/ML VIAL SLOW IVP PRN ×2 (03:53→12:26)
[2021-12-19 05:06] LABS: #Basophils 0.1 thou/uL (0.0-0.2); #Eosinphils 0.5 thou/uL (0.0-0.7); #Lymphocytes 1.3 thou/uL (1.20-3.40); #Monocytes 0.5 thou/uL (0.11-0.59); #Neutrophils 4.8 thou/uL (1.40-6.50); %Basophils 0.8 % (0.0-1.0); %Eosinophils 6.6 % (0.0-10.0); %Lymphocytes 18.8 % (21.0-51.0); %Monocytes 7.2 % (0.0-10.0); %Neutrophils 66.6 % (42.0-75.0); Hemoglobin 9.1 g/dL (12.0-16.0); Mean Corpuscular HGB CONC 30.8 g/dL (32.0-36.0); Mean Corpuscular Hemoglobin 24.4 pg (27.0-31.0); Mean Corpuscular Volume 79.1 fL (78.0-98.0); Mean Platelet Volume 10.3 fL (7.4-10.4); Platelet Count 137 thou/uL (130-400); RBC Distribution Width 15.7 % (11.5-14.5); Red Blood Cell (RBC) Count 3.75 mill/uL (4.20-5.40); White Blood Cell (WBC) Count 7.1 thou/uL (4.8-10.8)
[2021-12-19 05:27] LABS: Anion Gap 14 mmol/L (10-20); BUN (Urea Nitrogen) 35 mg/dL (9.8-20.1); Calc. Creatinine Clearance 54 mL/min (70-130); Calcium 8.4 mg/dL (7.8-10.44); Carbon Dioxide 23 mmol/L (22-29); Chloride 101 mmol/L (98-107); Estimated GFR 23; Glucose 114 mg/dL (70-105); Potassium 4.1 mmol/L (3.5-5.1); Sodium 134 mmol/L (136-145)
[2021-12-19] MEDS: Empagliflozin 10 MG TAB PO SCH (09:33)
[2021-12-19] MEDS: Nitroglycerin 2% Ointment 1 INCH/1 GM Packet TOP SCH ×2 (09:33→20:32)
[2021-12-19] MEDS: Sacubitril 49 MG/Valsartan 51 MG TABLET PO SCH ×2 (09:33→20:33)
[2021-12-19] MEDS: Enoxaparin Sodium 40 MG/0.4 ML SYRINGE SC SCH (09:33)
[2021-12-19] MEDS: Carvedilol 25 MG TAB PO SCH ×2 (09:33→20:32)
[2021-12-19] MEDS: Aspirin 81 mg Enteric Coated Tablet PO SCH (09:33)
[2021-12-19] MEDS: Bumetanide 1 MG TAB PO SCH (16:51)
[2021-12-19] MEDS: Topiramate 25 MG TAB PO SCH (20:33)
[2021-12-19] MEDS: Rosuvastatin 20 MG TAB PO SCH (20:33)
[2021-12-20] MEDS ORDERED: Meclizine HCl 12.5 MG TAB PO PRN (00:33)
[2021-12-20 04:47] LABS: #Eosinphils 0.4 thou/uL (0.0-0.7); #Lymphocytes 1.4 thou/uL (1.20-3.40); #Monocytes 0.3 thou/uL (0.11-0.59); #Neutrophils 3.5 thou/uL (1.40-6.50); %Basophils 0.6 % (0.0-1.0); %Eosinophils 6.5 % (0.0-10.0); %Lymphocytes 24.3 % (21.0-51.0); %Monocytes 6.1 % (0.0-10.0); %Neutrophils 62.5 % (42.0-75.0); Hemoglobin 9.5 g/dL (12.0-16.0); Mean Corpuscular HGB CONC 30.7 g/dL (32.0-36.0); Mean Corpuscular Hemoglobin 24.7 pg (27.0-31.0); Mean Corpuscular Volume 80.5 fL (78.0-98.0); Mean Platelet Volume 10.4 fL (7.4-10.4); Platelet Count 144 thou/uL (130-400); RBC Distribution Width 15.9 % (11.5-14.5); Red Blood Cell (RBC) Count 3.84 mill/uL (4.20-5.40); White Blood Cell (WBC) Count 5.6 thou/uL (4.8-10.8)
[2021-12-20 05:09] LABS: Anion Gap 15 mmol/L (10-20); BUN (Urea Nitrogen) 41 mg/dL (9.8-20.1); Calc. Creatinine Clearance 48 mL/min (70-130); Calcium 8.6 mg/dL (7.8-10.44); Carbon Dioxide 23 mmol/L (22-29); Chloride 100 mmol/L (98-107); Estimated GFR 20; Glucose 121 mg/dL (70-105); Potassium 4.3 mmol/L (3.5-5.1); Sodium 134 mmol/L (136-145)
[2021-12-20] MEDS: Bumetanide 1 MG TAB PO SCH (08:33)
[2021-12-20] MEDS: Ondansetron ODT 4 MG TAB PO PRN (08:35)
[2021-12-20] MEDS ORDERED: Lactated Ringer's 1,000 ML IV SCH (08:45)
[2021-12-20] MEDS: Lactated Ringer's 1,000 ML IV SCH ×2 (09:21→18:01)
[2021-12-20] MEDS: Enoxaparin Sodium 40 MG/0.4 ML SYRINGE SC SCH (10:00)
[2021-12-20] MEDS: Sacubitril 49 MG/Valsartan 51 MG TABLET PO SCH ×2 (10:01→21:03)
[2021-12-20] MEDS: Aspirin 81 mg Enteric Coated Tablet PO SCH (10:01)
[2021-12-20] MEDS: Carvedilol 25 MG TAB PO SCH ×2 (10:01→21:02)
[2021-12-20] MEDS: Nitroglycerin 2% Ointment 1 INCH/1 GM Packet TOP SCH ×2 (10:01→21:03)
[2021-12-20] MEDS: Apixaban 5 MG TAB PO SCH (21:02)
[2021-12-20] MEDS: Colchicine 0.6 MG TAB PO SCH (21:03)
[2021-12-20] MEDS: Rosuvastatin 20 MG TAB PO SCH (21:03)
[2021-12-20] MEDS: Topiramate 25 MG TAB PO SCH (21:03)
[2021-12-20] MEDS ORDERED: Dextrose 5% in Water 1,000 ML IV PRN (21:09)
[2021-12-20] MEDS ORDERED: Dextrose 50% Abboject 50 ML SYRINGE SLOW IVP PRN (21:09)
[2021-12-20] MEDS ORDERED: HumaLOG 300 UNITS/3 ML VIAL SC PRN (22:30)
[2021-12-21] MEDS: HumaLOG 300 UNITS/3 ML VIAL SC PRN ×2 (06:20→11:59)
[2021-12-21] MEDS: Nitroglycerin 0.4 MG TAB (25 Tab Bottle) SL PRN ×4 (06:20→18:29)
[2021-12-21] MEDS: Morphine 2 MG/ML VIAL SLOW IVP PRN ×2 (06:27→18:33)
[2021-12-21 06:51] LABS: Anion Gap 17 mmol/L (10-20); BUN (Urea Nitrogen) 40 mg/dL (9.8-20.1); Calc. Creatinine Clearance 45 mL/min (70-130); Calcium 8.8 mg/dL (7.8-10.44); Carbon Dioxide 22 mmol/L (22-29); Chloride 100 mmol/L (98-107); Estimated GFR 19; Glucose 189 mg/dL (70-105); Potassium 4.5 mmol/L (3.5-5.1); Sodium 134 mmol/L (136-145)
[2021-12-21 07:22] LABS: #Basophils 0.1 thou/uL (0.0-0.2); #Eosinphils 0.4 thou/uL (0.0-0.7); #Lymphocytes 1.6 thou/uL (1.20-3.40); #Monocytes 0.4 thou/uL (0.11-0.59); #Neutrophils 4.5 thou/uL (1.40-6.50); %Basophils 0.9 % (0.0-1.0); %Eosinophils 5.7 % (0.0-10.0); %Lymphocytes 22.9 % (21.0-51.0); %Monocytes 6.3 % (0.0-10.0); %Neutrophils 64.3 % (42.0-75.0); Hemoglobin 9.8 g/dL (12.0-16.0); Mean Corpuscular HGB CONC 31.3 g/dL (32.0-36.0); Mean Corpuscular Hemoglobin 24.4 pg (27.0-31.0); Mean Corpuscular Volume 77.8 fL (78.0-98.0); Mean Platelet Volume 11.5 fL (7.4-10.4); Platelet Count 164 thou/uL (130-400); RBC Distribution Width 16.3 % (11.5-14.5); Red Blood Cell (RBC) Count 4.02 mill/uL (4.20-5.40)
[2021-12-21] MEDS ORDERED: Nitroglycerin 0.4 MG TAB (25 Tab Bottle) ONE (08:20)
[2021-12-21] MEDS: Apixaban 5 MG TAB PO SCH ×2 (09:16→20:28)
[2021-12-21] MEDS: Aspirin 81 mg Enteric Coated Tablet PO SCH (09:16)
[2021-12-21] MEDS: Nitroglycerin 2% Ointment 1 INCH/1 GM Packet TOP SCH ×3 (09:16→20:28)
[2021-12-21] MEDS: Carvedilol 25 MG TAB PO SCH ×2 (09:16→20:28)
[2021-12-21] MEDS: Colchicine 0.6 MG TAB PO SCH ×2 (09:16→20:28)
[2021-12-21] MEDS: Sacubitril 49 MG/Valsartan 51 MG TABLET PO SCH (09:16)
[2021-12-21] MEDS ORDERED: hydrALAZINE 20 MG/ML VIAL SLOW IVP PRN (13:12)
[2021-12-21] MEDS: Topiramate 25 MG TAB PO SCH (20:28)
[2021-12-21] MEDS: Rosuvastatin 20 MG TAB PO SCH (20:28)
[2021-12-22 04:42] LABS: #Basophils 0.1 thou/uL (0.0-0.2); #Eosinphils 0.5 thou/uL (0.0-0.7); #Lymphocytes 1.8 thou/uL (1.20-3.40); #Monocytes 0.5 thou/uL (0.11-0.59); #Neutrophils 4.7 thou/uL (1.40-6.50); %Basophils 1.2 % (0.0-1.0); %Lymphocytes 23.2 % (21.0-51.0); %Monocytes 6.1 % (0.0-10.0); %Neutrophils 62.5 % (42.0-75.0); Hemoglobin 10.1 g/dL (12.0-16.0); Mean Corpuscular HGB CONC 32.4 g/dL (32.0-36.0); Mean Corpuscular Hemoglobin 25.5 pg (27.0-31.0); Mean Corpuscular Volume 78.5 fL (78.0-98.0); Mean Platelet Volume 10.1 fL (7.4-10.4); Platelet Count 171 thou/uL (130-400); RBC Distribution Width 15.9 % (11.5-14.5); Red Blood Cell (RBC) Count 3.95 mill/uL (4.20-5.40); White Blood Cell (WBC) Count 7.6 thou/uL (4.8-10.8)
[2021-12-22] MEDS: Morphine 2 MG/ML VIAL SLOW IVP PRN (04:50)
[2021-12-22 05:03] LABS: Anion Gap 12 mmol/L (10-20); BUN (Urea Nitrogen) 43 mg/dL (9.8-20.1); Calc. Creatinine Clearance 50 mL/min (70-130); Calcium 8.8 mg/dL (7.8-10.44); Carbon Dioxide 24 mmol/L (22-29); Chloride 102 mmol/L (98-107); Estimated GFR 21; Glucose 124 mg/dL (70-105); Potassium 4.2 mmol/L (3.5-5.1); Sodium 134 mmol/L (136-145)
[2021-12-22] MEDS: Colchicine 0.6 MG TAB PO SCH ×2 (08:46→20:27)
[2021-12-22] MEDS: Aspirin 81 mg Enteric Coated Tablet PO SCH (08:46)
[2021-12-22] MEDS: Carvedilol 25 MG TAB PO SCH ×2 (08:46→20:27)
[2021-12-22] MEDS: Nitroglycerin 2% Ointment 1 INCH/1 GM Packet TOP SCH ×2 (08:46→20:26)
[2021-12-22] MEDS: Apixaban 5 MG TAB PO SCH ×2 (08:46→20:26)
[2021-12-22] MEDS: Rosuvastatin 20 MG TAB PO SCH (20:26)
[2021-12-22] MEDS: Topiramate 25 MG TAB PO SCH (20:27)
[2021-12-22] MEDS ORDERED: Isosorbide Mononitrate 20 MG TAB PO SCH (20:30)
[2021-12-23 05:07] LABS: #Eosinphils 0.4 thou/uL (0.0-0.7); #Lymphocytes 1.3 thou/uL (1.20-3.40); #Monocytes 0.4 thou/uL (0.11-0.59); #Neutrophils 6.8 thou/uL (1.40-6.50); %Basophils 0.5 % (0.0-1.0); %Eosinophils 4.2 % (0.0-10.0); %Lymphocytes 14.4 % (21.0-51.0); %Monocytes 4.6 % (0.0-10.0); %Neutrophils 76.3 % (42.0-75.0); Hemoglobin 10.5 g/dL (12.0-16.0); Mean Corpuscular HGB CONC 31.8 g/dL (32.0-36.0); Mean Corpuscular Hemoglobin 24.9 pg (27.0-31.0); Mean Corpuscular Volume 78.4 fL (78.0-98.0); Mean Platelet Volume 10.2 fL (7.4-10.4); Platelet Count 192 thou/uL (130-400); Red Blood Cell (RBC) Count 4.19 mill/uL (4.20-5.40); White Blood Cell (WBC) Count 8.9 thou/uL (4.8-10.8)
[2021-12-23 05:27] LABS: Anion Gap 13 mmol/L (10-20); BUN (Urea Nitrogen) 39 mg/dL (9.8-20.1); Calc. Creatinine Clearance 53 mL/min (70-130); Carbon Dioxide 24 mmol/L (22-29); Chloride 103 mmol/L (98-107); Estimated GFR 23; Glucose 174 mg/dL (70-105); Potassium 4.5 mmol/L (3.5-5.1); Sodium 135 mmol/L (136-145)
[2021-12-23] MEDS: Aspirin 81 mg Enteric Coated Tablet PO SCH (09:05)
[2021-12-23] MEDS: Nitroglycerin 2% Ointment 1 INCH/1 GM Packet TOP SCH (09:05)
[2021-12-23] MEDS: Carvedilol 25 MG TAB PO SCH (09:05)
[2021-12-23] MEDS: Apixaban 5 MG TAB PO SCH (09:06)
[2021-12-23] MEDS: Colchicine 0.6 MG TAB PO SCH (09:51)
[2021-12-23] MEDS ORDERED: Polyethylene Glycol 3350 17 GM Packet PO SCH (15:15)
[2021-12-23 16:45] VITALS: BP 156/74; TEMP 97.9
[2021-12-23] MEDS: Bumetanide 1 MG TAB PO SCH (17:10)
[2021-12-23] MEDS ORDERED: Senokot S 8.6-50 MG TAB PO SCH (21:00)
[2021-12-24] MEDS ORDERED: Polyethylene Glycol 3350 17 GM Packet PO SCH (09:00)
== END 2021-12-23 18:21 | disposition home or self-care (01) | DRG 280 ==
LOC: ERS 13:54 → CCU 16:17 → 2SW 12-18 01:55
PROVIDERS: ADMIT Family Medicine; ATTEND Family Medicine
DX: I11.0 Hypertensive heart disease with heart failure (principal); Z20.822 Contact with and (suspected) exposure to COVID-19; I50.23 Acute on chronic systolic (congestive) heart failure; I21.A1 Myocardial infarction type 2; J96.01 Acute respiratory failure with hypoxia; N17.9 Acute kidney failure, unspecified; Z68.43 Body mass index [BMI] 50.0-59.9, adult; N18.30 Chronic kidney disease, stage 3 unspecified; G40.909 Epilepsy, unspecified, not intractable, without status epilepticus; E11.22 Type 2 diabetes mellitus with diabetic chronic kidney disease; D63.1 Anemia in chronic kidney disease; E77.8 Other disorders of glycoprotein metabolism; I25.10 Atherosclerotic heart disease of native coronary artery without angina pectoris; E78.00 Pure hypercholesterolemia, unspecified; E66.01 Morbid (severe) obesity due to excess calories; I25.5 Ischemic cardiomyopathy; D50.9 Iron deficiency anemia, unspecified; E86.9 Volume depletion, unspecified; T50.1X5A Adverse effect of loop [high-ceiling] diuretics, initial encounter; I25.2 Old myocardial infarction; Z95.5 Presence of coronary angioplasty implant and graft; Z95.810 Presence of automatic (implantable) cardiac defibrillator; Z91.19 Patient's noncompliance with other medical treatment and regimen; Z88.6 Allergy status to analgesic agent; Z88.8 Allergy status to other drugs, medicaments and biological substances; Z79.899 Other long term (current) drug therapy; Z79.82 Long term (current) use of aspirin; Z79.4 Long term (current) use of insulin; Z79.01 Long term (current) use of anticoagulants; Z98.890 Other specified postprocedural states
CPT/HCPCS: 36415; 36416; 51702; 71045; 80048; 80061; 82553; 83880; 84484; 85025; 93005; 93010; 93798; 96365; 96366; 96372; 96374; 96375; 97139; J1650; J1815; J1940; J2270; J7030; J7120; J7999; Q0162; U0003; U0005

== ENCOUNTER 2022-07-05 04:13 | Inpatient (IN) | payer OTHER ==
[2022-07-05] MEDS ORDERED: Ipratropium/Albuterol 3 ML NEB ONE (05:03)
[2022-07-05] MEDS ORDERED: cefTRIAXone\\ROCEPHIN 1 GM VIAL ONE (05:32)
[2022-07-05] MEDS ORDERED: Furosemide 40 MG/4 ML VIAL SLOW IVP SCH (07:00)
[2022-07-05 07:25] VITALS: BMI 44.7
[2022-07-05] MEDS ORDERED: Ipratropium/Albuterol 3 ML NEB NEB PRN (07:51)
[2022-07-05] MEDS: Aspirin 81 mg Enteric Coated Tablet PO SCH (08:36)
[2022-07-05] MEDS: Rivaroxaban 15 MG TAB PO SCH (08:36)
[2022-07-05] MEDS ORDERED: Azithromycin 500 MG in Sodium Chloride 0.9% 250 ML 250 ML IVPB SCH (09:00)
[2022-07-05 10:04] LABS: Anion Gap 14 mmol/L (10-20); BUN (Urea Nitrogen) 41 mg/dL (9.8-20.1); Calc. Creatinine Clearance 45 mL/min (70-130); Calcium 8.5 mg/dL (7.8-10.44); Carbon Dioxide 29 mmol/L (22-29); Chloride 93 mmol/L (98-107); Estimated GFR 20; Glucose 182 mg/dL (70-105); Potassium 3.3 mmol/L (3.5-5.1); Sodium 133 mmol/L (136-145)
[2022-07-05 10:08] LABS: Troponin I 0.039 ng/mL (< 0.028)
[2022-07-05 11:07] LABS: #Eosinphils 0.1 thou/uL (0.0-0.7); #Monocytes 0.5 thou/uL (0.11-0.59); #Neutrophils 4.6 thou/uL (1.40-6.50); %Basophils 0.4 % (0.0-1.0); %Eosinophils 2.3 % (0.0-10.0); %Lymphocytes 15.8 % (21.0-51.0); %Monocytes 8.2 % (0.0-10.0); %Neutrophils 73.3 % (42.0-75.0); Hemoglobin 11.4 g/dL (12.0-16.0); MDiff Complete? YES; Mean Corpuscular HGB CONC 31.6 g/dL (32.0-36.0); Mean Corpuscular Hemoglobin 23.7 pg (27.0-31.0); Mean Platelet Volume 6.5 fL (7.4-10.4); Microcytosis SLIGHT = 6-15 cells (100X) (0-5/hpf); Platelet Count 100 10x3/uL (130-400); Platelet Morphology Comment Appears Decreased; Polychromasia SLIGHT = 2-3 cells (100X) (0-2/hpf); RBC Distribution Width 16.7 % (11.5-14.5); Red Blood Cell (RBC) Count 4.82 mill/uL (4.20-5.40); White Blood Cell (WBC) Count 6.3 10x3/uL (4.8-10.8)
[2022-07-05 15:15] LABS: Legionella Urinary Ag Negative (Negative); Strep pneumo Urine Ag NEGATIVE (NEGATIVE)
[2022-07-05 15:22] LABS: Bilirubin Negative (Negative); Blood, Urine Trace (Negative); CAUTI Indications for Culture Alt mental st,lethar; Clarity Clear (Clear); Glucose, Urine (Dipstick) 500 mg/dL (Negative); Ketone, Urine Negative (Negative); Leukocyte Negative Leu/uL (Negative); Nitrite Negative (Negative); Protein, Urine (Dipstick) 200 mg/dL (Neg-Trace); Squamous Epithelial 0-3 HPF (0-3); Urobilinogen Normal mg/dL (Less than 2); WBC/HPF 0-3 HPF (0-3)
[2022-07-05 15:40] LABS: Bacteria/HPF 1+ HPF (None Seen)
[2022-07-05 15:41] LABS: Urine Culture Reflex No No
[2022-07-05] MEDS: Topiramate 25 MG TAB PO SCH (20:57)
[2022-07-06] MEDS: Acetaminophen 325 MG TAB PO PRN (00:08)
[2022-07-06 04:40] LABS: #Eosinphils 0.5 thou/uL (0.0-0.7); #Lymphocytes 2.4 thou/uL (1.20-3.40); #Monocytes 0.7 thou/uL (0.11-0.59); #Neutrophils 3.5 thou/uL (1.40-6.50); %Basophils 0.5 % (0.0-1.0); %Eosinophils 7.5 % (0.0-10.0); %Neutrophils 48.9 % (42.0-75.0); Hemoglobin 12.2 g/dL (12.0-16.0); Mean Corpuscular HGB CONC 32.9 g/dL (32.0-36.0); Mean Corpuscular Hemoglobin 24.3 pg (27.0-31.0); Mean Corpuscular Volume 73.9 fl (78.0-98.0); Platelet Count 89 10x3/uL (130-400); RBC Distribution Width 16.7 % (11.5-14.5); Red Blood Cell (RBC) Count 5.01 mill/uL (4.20-5.40); White Blood Cell (WBC) Count 7.2 10x3/uL (4.8-10.8)
[2022-07-06 04:55] LABS: Anion Gap 14 mmol/L (10-20); BUN (Urea Nitrogen) 41 mg/dL (9.8-20.1); Calc. Creatinine Clearance 48 mL/min (70-130); Calcium 8.8 mg/dL (7.8-10.44); Carbon Dioxide 27 mmol/L (22-29); Chloride 95 mmol/L (98-107); Estimated GFR 21; Glucose 104 mg/dL (70-105); Potassium 3.3 mmol/L (3.5-5.1); Sodium 133 mmol/L (136-145)
[2022-07-06] MEDS ORDERED: cefTRIAXone\\ROCEPHIN 1 GM in Sodium Chloride 0.9% 100 ML IVPB SCH (07:00)
[2022-07-06] MEDS ORDERED: Potassium Chloride 20 MEQ TAB PO SCH (07:54)
[2022-07-06] MEDS ORDERED: Non-Formulary Item 1 EACH (Insulin Aspart [Novolog] 100 UNIT/ML Vial) PRN (07:56)
[2022-07-06] MEDS ORDERED: Fioricet 325/50/40 mg Tablet PO PRN (07:56)
[2022-07-06] MEDS ORDERED: Meclizine HCl 25 MG TAB PO PRN (07:56)
[2022-07-06] MEDS ORDERED: Non-Formulary Item 1 EACH (Evolocumab [Repatha Sureclick] 140 MG/ML Pen.Injctr) SC SCH (08:00)
[2022-07-06] MEDS ORDERED: INSULIN ASPART 100 UNIT/ML SC PRN (08:06)
[2022-07-06] MEDS ORDERED: EVOLOCUMAB 140 MG/ML SC SCH (08:15)
[2022-07-06] MEDS: Rosuvastatin 20 MG TAB PO SCH (08:32)
[2022-07-06] MEDS: Rivaroxaban 15 MG TAB PO SCH (08:32)
[2022-07-06] MEDS: hydrALAZINE 25 MG TAB PO SCH ×3 (08:32→20:37)
[2022-07-06] MEDS: Carvedilol 25 MG TAB PO SCH ×2 (08:32→20:38)
[2022-07-06] MEDS: Isosorbide Dinitrate 20 MG TAB PO SCH ×3 (08:33→20:37)
[2022-07-06] MEDS: Aspirin 81 mg Enteric Coated Tablet PO SCH (08:33)
[2022-07-06] MEDS: Sertraline 25 MG TAB PO SCH (08:33)
[2022-07-06] MEDS: Ferrous Sulfate 325 MG TAB PO SCH ×2 (08:34→16:47)
[2022-07-06 08:53] LABS: Magnesium 2.1 mg/dL (1.6-2.6)
[2022-07-06] MEDS ORDERED: Non-Formulary Item 1 EACH (Hydralazine Hcl [Hydralazine Hcl] 50 MG Tablet) PO SCH (09:00)
[2022-07-06] MEDS ORDERED: Non-Formulary Item 1 EACH (Ranolazine [Ranexa] 1,000 MG Tab.Er.12h) PO SCH (09:00)
[2022-07-06] MEDS: Colchicine 0.3 MG TAB PO SCH (09:12)
[2022-07-06] MEDS ORDERED: Dextrose 50% Abboject 50 ML SYRINGE SLOW IVP PRN (09:22)
[2022-07-06] MEDS ORDERED: Dextrose 5% in Water 1,000 ML IV PRN (09:22)
[2022-07-06] MEDS ORDERED: HumaLOG 300 UNITS/3 ML VIAL SC PRN (09:22)
[2022-07-06] MEDS ORDERED: Furosemide 20 MG/2 ML VIAL SLOW IVP SCH ×2 (10:45→14:00)
[2022-07-06] MEDS ORDERED: predniSONE 20 MG TAB PO SCH (10:45)
[2022-07-06] MEDS: Ipratropium/Albuterol 3 ML NEB NEB SCH ×3 (10:56→18:24)
[2022-07-06] MEDS: HumaLOG 300 UNITS/3 ML VIAL SC PRN ×2 (11:18→16:50)
[2022-07-06 15:58] LABS: Creatinine, Urine 42.2 mg/dL (47-110)
[2022-07-06] MEDS: guaiFENesin 200 MG TAB PO PRN ×2 (17:46→20:37)
[2022-07-06] MEDS: Arformoterol 15 MCG/2 ML NEB NEB SCH (18:23)
[2022-07-06] MEDS: guaiFENesin ER 600 MG TAB PO SCH (20:37)
[2022-07-06] MEDS: Topiramate 25 MG TAB PO SCH (20:37)
[2022-07-06] MEDS ORDERED: Methyl Salicylate/Menthol 85 GM TUBE TOP PRN (21:00)
[2022-07-07 04:19] LABS: #Eosinphils 0.1 thou/uL (0.0-0.7); #Lymphocytes 1.9 thou/uL (1.20-3.40); #Monocytes 0.8 thou/uL (0.11-0.59); #Neutrophils 5.9 thou/uL (1.40-6.50); %Basophils 0.4 % (0.0-1.0); %Eosinophils 0.6 % (0.0-10.0); %Lymphocytes 21.9 % (21.0-51.0); %Monocytes 8.9 % (0.0-10.0); %Neutrophils 68.3 % (42.0-75.0); Hemoglobin 10.8 g/dL (12.0-16.0); Mean Corpuscular HGB CONC 32.5 g/dL (32.0-36.0); Mean Corpuscular Hemoglobin 23.8 pg (27.0-31.0); Mean Corpuscular Volume 73.3 fl (78.0-98.0); Mean Platelet Volume 6.2 fL (7.4-10.4); Platelet Count 102 10x3/uL (130-400); RBC Distribution Width 16.4 % (11.5-14.5); Red Blood Cell (RBC) Count 4.55 mill/uL (4.20-5.40); White Blood Cell (WBC) Count 8.7 10x3/uL (4.8-10.8)
[2022-07-07 04:34] LABS: Anion Gap 13 mmol/L (10-20); BUN (Urea Nitrogen) 48 mg/dL (9.8-20.1); Calc. Creatinine Clearance 47 mL/min (70-130); Calcium 8.6 mg/dL (7.8-10.44); Carbon Dioxide 27 mmol/L (22-29); Chloride 94 mmol/L (98-107); Estimated GFR 20; Glucose 97 mg/dL (70-105); Potassium 3.7 mmol/L (3.5-5.1); Sodium 130 mmol/L (136-145)
[2022-07-07] MEDS ORDERED: predniSONE 20 MG TAB PO SCH (08:00)
[2022-07-07] MEDS ORDERED: Torsemide 100 MG TAB PO SCH (09:00)
[2022-07-07] MEDS: Sertraline 25 MG TAB PO SCH (09:16)
[2022-07-07] MEDS: Ferrous Sulfate 325 MG TAB PO SCH ×2 (09:17→18:00)
[2022-07-07] MEDS: predniSONE 20 MG TAB PO SCH (09:17)
[2022-07-07] MEDS: Aspirin 81 mg Enteric Coated Tablet PO SCH (09:18)
[2022-07-07] MEDS: Rosuvastatin 20 MG TAB PO SCH (09:18)
[2022-07-07] MEDS: hydrALAZINE 25 MG TAB PO SCH ×3 (09:19→21:23)
[2022-07-07] MEDS: Isosorbide Dinitrate 20 MG TAB PO SCH ×3 (09:19→21:23)
[2022-07-07] MEDS: Colchicine 0.3 MG TAB PO SCH (09:20)
[2022-07-07] MEDS: Empagliflozin 25 MG TAB PO SCH (09:20)
[2022-07-07] MEDS: Carvedilol 25 MG TAB PO SCH ×2 (09:20→21:23)
[2022-07-07] MEDS: guaiFENesin ER 600 MG TAB PO SCH ×2 (09:20→21:24)
[2022-07-07] MEDS: Arformoterol 15 MCG/2 ML NEB NEB SCH ×2 (10:37→18:26)
[2022-07-07] MEDS: Ipratropium/Albuterol 3 ML NEB NEB SCH ×4 (10:38→18:24)
[2022-07-07] MEDS: Acetaminophen 325 MG TAB PO PRN (14:06)
[2022-07-07] MEDS: HumaLOG 300 UNITS/3 ML VIAL SC PRN (18:00)
[2022-07-07] MEDS: Rivaroxaban 15 MG TAB PO SCH (18:00)
[2022-07-07] MEDS: Topiramate 25 MG TAB PO SCH (21:37)
[2022-07-08] MEDS: guaiFENesin 200 MG TAB PO PRN (04:37)
[2022-07-08 04:39] LABS: #Lymphocytes 2.1 thou/uL (1.20-3.40); #Monocytes 0.7 thou/uL (0.11-0.59); #Neutrophils 5.9 thou/uL (1.40-6.50); %Basophils 0.3 % (0.0-1.0); %Eosinophils 0.5 % (0.0-10.0); %Lymphocytes 23.7 % (21.0-51.0); %Monocytes 8.4 % (0.0-10.0); %Neutrophils 67.1 % (42.0-75.0); Hemoglobin 10.6 g/dL (12.0-16.0); Mean Corpuscular HGB CONC 33.4 g/dL (32.0-36.0); Mean Corpuscular Hemoglobin 24.4 pg (27.0-31.0); Mean Corpuscular Volume 73.1 fl (78.0-98.0); Mean Platelet Volume 7.3 fL (7.4-10.4); Platelet Count 120 10x3/uL (130-400); RBC Distribution Width 16.4 % (11.5-14.5); Red Blood Cell (RBC) Count 4.34 mill/uL (4.20-5.40); White Blood Cell (WBC) Count 8.7 10x3/uL (4.8-10.8)
[2022-07-08 05:00] LABS: Anion Gap 13 mmol/L (10-20); BUN (Urea Nitrogen) 51 mg/dL (9.8-20.1); Calc. Creatinine Clearance 44 mL/min (70-130); Calcium 8.7 mg/dL (7.8-10.44); Carbon Dioxide 29 mmol/L (22-29); Chloride 94 mmol/L (98-107); Estimated GFR 19; Glucose 108 mg/dL (70-105); Potassium 3.8 mmol/L (3.5-5.1); Sodium 132 mmol/L (136-145)
[2022-07-08] MEDS: Ipratropium/Albuterol 3 ML NEB NEB SCH ×4 (06:52→18:53)
[2022-07-08] MEDS: Sertraline 25 MG TAB PO SCH (09:46)
[2022-07-08] MEDS: predniSONE 20 MG TAB PO SCH (09:46)
[2022-07-08] MEDS: Isosorbide Dinitrate 20 MG TAB PO SCH ×3 (09:46→21:53)
[2022-07-08] MEDS: Ferrous Sulfate 325 MG TAB PO SCH ×2 (09:47→16:10)
[2022-07-08] MEDS: guaiFENesin ER 600 MG TAB PO SCH ×2 (09:47→21:53)
[2022-07-08] MEDS: Colchicine 0.3 MG TAB PO SCH (09:47)
[2022-07-08] MEDS: Carvedilol 25 MG TAB PO SCH ×2 (09:47→21:53)
[2022-07-08] MEDS: Aspirin 81 mg Enteric Coated Tablet PO SCH (09:47)
[2022-07-08] MEDS: Rosuvastatin 20 MG TAB PO SCH (09:47)
[2022-07-08] MEDS: hydrALAZINE 25 MG TAB PO SCH ×3 (09:47→21:52)
[2022-07-08] MEDS: Empagliflozin 25 MG TAB PO SCH (09:55)
[2022-07-08] MEDS: Arformoterol 15 MCG/2 ML NEB NEB SCH ×2 (10:59→18:54)
[2022-07-08] MEDS: Benzonatate 100 MG CAP PO PRN (12:16)
[2022-07-08] MEDS: Rivaroxaban 15 MG TAB PO SCH (16:10)
[2022-07-08] MEDS: Guaifenesin DM 100-10/5 ML UDCUP PO PRN (16:14)
[2022-07-08] MEDS: Budesonide 0.5 MG/2 ML NEB NEB SCH (18:54)
[2022-07-08] MEDS: Topiramate 25 MG TAB PO SCH (21:52)
[2022-07-09] MEDS: Guaifenesin DM 100-10/5 ML UDCUP PO PRN ×2 (01:49→11:38)
[2022-07-09 04:36] LABS: #Lymphocytes 1.3 thou/uL (1.20-3.40); #Monocytes 0.5 thou/uL (0.11-0.59); #Neutrophils 7.3 thou/uL (1.40-6.50); %Basophils 0.2 % (0.0-1.0); %Eosinophils 0.4 % (0.0-10.0); %Lymphocytes 13.9 % (21.0-51.0); %Monocytes 4.9 % (0.0-10.0); %Neutrophils 80.6 % (42.0-75.0); Mean Corpuscular Hemoglobin 24.6 pg (27.0-31.0); Mean Corpuscular Volume 74.5 fl (78.0-98.0); Mean Platelet Volume 11.7 fL (7.4-10.4); Platelet Count 151 10x3/uL (130-400); RBC Distribution Width 16.7 % (11.5-14.5); Red Blood Cell (RBC) Count 4.48 mill/uL (4.20-5.40); White Blood Cell (WBC) Count 9.1 10x3/uL (4.8-10.8)
[2022-07-09 05:00] LABS: Anion Gap 13 mmol/L (10-20); BUN (Urea Nitrogen) 55 mg/dL (9.8-20.1); Calc. Creatinine Clearance 44 mL/min (70-130); Calcium 8.9 mg/dL (7.8-10.44); Carbon Dioxide 26 mmol/L (22-29); Chloride 96 mmol/L (98-107); Estimated GFR 19; Glucose 196 mg/dL (70-105); Potassium 4.1 mmol/L (3.5-5.1); Sodium 131 mmol/L (136-145)
[2022-07-09] MEDS: Benzonatate 100 MG CAP PO PRN (05:42)
[2022-07-09] MEDS: Ipratropium/Albuterol 3 ML NEB NEB SCH ×2 (06:35→11:32)
[2022-07-09] MEDS: Budesonide 0.5 MG/2 ML NEB NEB SCH (06:35)
[2022-07-09] MEDS: Arformoterol 15 MCG/2 ML NEB NEB SCH (06:35)
[2022-07-09] MEDS: hydrALAZINE 25 MG TAB PO SCH (09:49)
[2022-07-09] MEDS: predniSONE 20 MG TAB PO SCH (09:49)
[2022-07-09] MEDS: Isosorbide Dinitrate 20 MG TAB PO SCH (09:49)
[2022-07-09] MEDS: Sertraline 25 MG TAB PO SCH (09:49)
[2022-07-09] MEDS: Empagliflozin 25 MG TAB PO SCH (09:50)
[2022-07-09] MEDS: Carvedilol 25 MG TAB PO SCH (09:50)
[2022-07-09] MEDS: guaiFENesin ER 600 MG TAB PO SCH (09:50)
[2022-07-09] MEDS: Colchicine 0.3 MG TAB PO SCH (09:50)
[2022-07-09] MEDS: Ferrous Sulfate 325 MG TAB PO SCH (09:50)
[2022-07-09] MEDS: Rosuvastatin 20 MG TAB PO SCH (09:50)
[2022-07-09] MEDS: Aspirin 81 mg Enteric Coated Tablet PO SCH (09:50)
[2022-07-09 11:40] VITALS: BP 179/89; TEMP 97.7
== END 2022-07-09 13:45 | disposition home or self-care (01) | DRG 189 ==
LOC: ERS 04:13 → 2NO 05:25
PROVIDERS: ADMIT Internal Medicine; ATTEND Internal Medicine
DX: J96.01 Acute respiratory failure with hypoxia (principal); Z20.822 Contact with and (suspected) exposure to COVID-19; I13.0 Hypertensive heart and chronic kidney disease with heart failure and stage 1 through stage 4 chronic kidney disease, or unspecified chronic kidney disease; N18.4 Chronic kidney disease, stage 4 (severe); I50.22 Chronic systolic (congestive) heart failure; Z68.42 Body mass index [BMI] 45.0-49.9, adult; E87.1 Hypo-osmolality and hyponatremia; J44.1 Chronic obstructive pulmonary disease with (acute) exacerbation; J44.0 Chronic obstructive pulmonary disease with (acute) lower respiratory infection; J20.5 Acute bronchitis due to respiratory syncytial virus; E78.5 Hyperlipidemia, unspecified; E11.22 Type 2 diabetes mellitus with diabetic chronic kidney disease; I25.10 Atherosclerotic heart disease of native coronary artery without angina pectoris; E78.00 Pure hypercholesterolemia, unspecified; E66.01 Morbid (severe) obesity due to excess calories; E11.51 Type 2 diabetes mellitus with diabetic peripheral angiopathy without gangrene; G40.909 Epilepsy, unspecified, not intractable, without status epilepticus; I25.5 Ischemic cardiomyopathy; E86.9 Volume depletion, unspecified; E11.65 Type 2 diabetes mellitus with hyperglycemia; D69.6 Thrombocytopenia, unspecified; R77.8 Other specified abnormalities of plasma proteins; K21.9 Gastro-esophageal reflux disease without esophagitis; Z95.810 Presence of automatic (implantable) cardiac defibrillator; Z95.5 Presence of coronary angioplasty implant and graft; Z88.8 Allergy status to other drugs, medicaments and biological substances; Z79.899 Other long term (current) drug therapy; Z79.82 Long term (current) use of aspirin; Z79.4 Long term (current) use of insulin; I25.2 Old myocardial infarction; Z86.718 Personal history of other venous thrombosis and embolism; Z98.890 Other specified postprocedural states; Z82.49 Family history of ischemic heart disease and other diseases of the circulatory system; Z91.14 Patient's other noncompliance with medication regimen
CPT/HCPCS: 36415; 36416; 70450; 78451; 80048; 81001; 82570; 83735; 83880; 84145; 84156; 84300; 84540; 85025; 87449; 87633; 87899; 94640; 96365; A9540; J0456; J0696; J1815; J1940; J7050; J7512; J7611; J7620; J7626

== ENCOUNTER 2022-08-28 08:06 | Outpatient (CLI) | payer OTHER | END 2022-08-28 08:07 | disposition home or self-care (01) | LOC: BICMAMMO 08:06 | PROVIDERS: ATTEND Registered Nurse | DX: R92.8 Other abnormal and inconclusive findings on diagnostic imaging of breast (principal) | CPT/HCPCS: 76642; 77066; G0279 ==

== ENCOUNTER 2022-09-20 05:55 | Day surgery (SDC) | payer OTHER ==
[2022-09-19 10:49] VITALS: BMI 43.4
[2022-09-20] MEDS ORDERED: Ketamine 50 MG/ML (10ML VIAL) ONE (07:43)
[2022-09-20] MEDS ORDERED: Lidocaine 1% PF 5 ML VIAL ONE (08:04)
== END 2022-09-20 09:17 | disposition home or self-care (01) ==
LOC: SDC 05:55
PROVIDERS: ATTEND Internal Medicine
PROC: 0DBL8ZX Excision of Transverse Colon, Via Natural or Artificial Opening Endoscopic, Diagnostic (ICD-10-PCS; principal; 2022-09-20)
DX: Z12.11 Encounter for screening for malignant neoplasm of colon (principal); D12.3 Benign neoplasm of transverse colon; K57.30 Diverticulosis of large intestine without perforation or abscess without bleeding; K64.8 Other hemorrhoids; K64.4 Residual hemorrhoidal skin tags; K21.9 Gastro-esophageal reflux disease without esophagitis; I11.0 Hypertensive heart disease with heart failure; I50.9 Heart failure, unspecified; I25.10 Atherosclerotic heart disease of native coronary artery without angina pectoris; E11.9 Type 2 diabetes mellitus without complications; I25.2 Old myocardial infarction; E78.00 Pure hypercholesterolemia, unspecified; Z79.01 Long term (current) use of anticoagulants; Z79.82 Long term (current) use of aspirin; Z79.84 Long term (current) use of oral hypoglycemic drugs; Z79.899 Other long term (current) drug therapy; Z88.6 Allergy status to analgesic agent; Z88.8 Allergy status to other drugs, medicaments and biological substances; Z95.5 Presence of coronary angioplasty implant and graft; Z96.41 Presence of insulin pump (external) (internal)
CPT/HCPCS: 88305

== ENCOUNTER 2022-11-12 21:21 | Inpatient (IN) | payer OTHER ==
[2022-11-12 21:53] LABS: #Basophils 0.1 thou/uL (0.0-0.2); #Eosinphils 0.7 thou/uL (0.0-0.7); #Monocytes 0.3 thou/uL (0.11-0.59); #Neutrophils 5.2 thou/uL (1.40-6.50); %Eosinophils 9.7 % (0.0-10.0); %Lymphocytes 15.4 % (21.0-51.0); %Monocytes 4.5 % (0.0-10.0); %Neutrophils 68.2 % (42.0-75.0); Hemoglobin 9.9 g/dL (12.0-16.0); Mean Corpuscular HGB CONC 31.6 g/dL (32.0-36.0); Mean Corpuscular Hemoglobin 24.8 pg (27.0-31.0); Mean Corpuscular Volume 78.4 fl (78.0-98.0); Mean Platelet Volume 10.8 fL (7.4-10.4); RBC Distribution Width 15.9 % (11.5-14.5); Red Blood Cell (RBC) Count 3.99 mill/uL (4.20-5.40); White Blood Cell (WBC) Count 7.6 10x3/uL (4.8-10.8)
[2022-11-12 21:56] LABS: Platelet Count 107 10x3/uL (130-400)
[2022-11-12 22:17] LABS: ALT (SGPT) 23 U/L (8-55); AST (SGOT) 32 U/L (5-34); Albumin 3.5 g/dL (3.5-5.0); Alkaline Phosphatase 60 U/L (40-110); Anion Gap 11 mmol/L (10-20); BUN (Urea Nitrogen) 36 mg/dL (9.8-20.1); Bilirubin, Total 1.1 mg/dL (0.2-1.2); Calc. Creatinine Clearance 0 mL/min (70-130); Calcium 9.1 mg/dL (7.8-10.44); Carbon Dioxide 25 mmol/L (22-29); Chloride 104 mmol/L (98-107); Estimated GFR 13; Globulin 2.9 g/dL (2.4-3.5); Glucose 72 mg/dL (70-105); Lipase 28 U/L (8-78); Potassium 3.4 mmol/L (3.5-5.1); Protein, Total 6.4 g/dL (6.0-8.3); Sodium 137 mmol/L (136-145)
[2022-11-12 22:37] LABS: CKMB 1.7 ng/mL (0-6.6)
[2022-11-13] MEDS ORDERED: Potassium Bicarbonate/Cit Ac 20 MEQ TAB PO SCH (00:15)
[2022-11-13] MEDS ORDERED: Pantoprazole 40 MG VIAL IVP SCH (00:15)
[2022-11-13] MEDS ORDERED: Sodium Chloride 0.9% 1,000 ML IV SCH (00:30)
[2022-11-13] MEDS ORDERED: Glucagon 1 MG/ML KIT IM PRN (00:39)
[2022-11-13] MEDS ORDERED: Dextrose 50% Abboject 50 ML SYRINGE SLOW IVP PRN (00:39)
[2022-11-13] MEDS ORDERED: Dextrose 5% in Water 1,000 ML IV PRN (00:39)
[2022-11-13] MEDS ORDERED: cefTRIAXone (ROCEPHIN) 1 GM VIAL ONE (01:18)
[2022-11-13] MEDS ORDERED: Azithromycin 500 MG VIAL ONE (01:38)
[2022-11-13] MEDS ORDERED: Acetaminophen 500 MG TAB ONE (02:02)
[2022-11-13 02:13] LABS: SARS-CoV-2 NAA Rapid Test Not Detected (NotDetected)
[2022-11-13 03:32] LABS: Bilirubin Negative (Negative); Blood, Urine Negative (Negative); CAUTI Indications for Culture Pelvic or flank pain; Clarity Clear (Clear); Glucose, Urine (Dipstick) 300 mg/dL (Negative); Ketone, Urine Negative (Negative); Leukocyte Negative Leu/uL (Negative); Nitrite Negative (Negative); Protein, Urine (Dipstick) 300 mg/dL (Neg-Trace); RBC/HPF 0-3 HPF (0-3); Squamous Epithelial 0-3 HPF (0-3); Urobilinogen Normal mg/dL (Less than 2); WBC/HPF 0-3 HPF (0-3)
[2022-11-13 03:34] LABS: Bacteria/HPF 1+ HPF (None Seen)
[2022-11-13 03:35] LABS: Urine Culture Reflex No No
[2022-11-13 03:47] LABS: Legionella Urinary Ag Negative (Negative); Strep pneumo Urine Ag NEGATIVE (NEGATIVE)
[2022-11-13 05:07] LABS: #Basophils 0.1 thou/uL (0.0-0.2); #Eosinphils 0.8 thou/uL (0.0-0.7); #Monocytes 0.5 thou/uL (0.11-0.59); #Neutrophils 4.1 thou/uL (1.40-6.50); %Basophils 0.7 % (0.0-1.0); %Eosinophils 11.9 % (0.0-10.0); %Lymphocytes 20.6 % (21.0-51.0); %Monocytes 7.3 % (0.0-10.0); %Neutrophils 58.4 % (42.0-75.0); Hemoglobin 9.2 g/dL (12.0-16.0); Mean Corpuscular HGB CONC 32.1 g/dL (32.0-36.0); Mean Corpuscular Hemoglobin 24.9 pg (27.0-31.0); Mean Corpuscular Volume 77.8 fl (78.0-98.0); Mean Platelet Volume 11.6 fL (7.4-10.4); RBC Distribution Width 15.9 % (11.5-14.5); Red Blood Cell (RBC) Count 3.69 mill/uL (4.20-5.40)
[2022-11-13 05:22] LABS: Platelet Count 101 10x3/uL (130-400)
[2022-11-13 05:32] LABS: Anion Gap 14 mmol/L (10-20); BUN (Urea Nitrogen) 37 mg/dL (9.8-20.1); Calc. Creatinine Clearance 34 mL/min (70-130); Calcium 8.9 mg/dL (7.8-10.44); Carbon Dioxide 23 mmol/L (22-29); Chloride 106 mmol/L (98-107); Estimated GFR 13; Glucose 92 mg/dL (70-105); Iron 61 ug/dL (50-170); Iron Binding Capacity, Total 269 mcg/dL (265-497); Magnesium 1.9 mg/dL (1.6-2.6); Potassium 3.5 mmol/L (3.5-5.1); Sodium 139 mmol/L (136-145); Troponin I 0.068 ng/mL (< 0.028)
[2022-11-13 05:33] LABS: Iron 61 ug/dL (50-170); Iron Binding Capacity, Total 265 mcg/dL (265-497)
[2022-11-13] MEDS ORDERED: Aspirin 325 MG TAB PO SCH (05:45)
[2022-11-13] MEDS: hydrALAZINE 25 MG TAB PO SCH ×3 (08:46→20:06)
[2022-11-13] MEDS: Sertraline 25 MG TAB PO SCH (08:46)
[2022-11-13] MEDS: Carvedilol 25 MG TAB PO SCH ×2 (08:46→20:07)
[2022-11-13] MEDS: Pantoprazole 40 MG VIAL IVP SCH (08:47)
[2022-11-13] MEDS ORDERED: Rivaroxaban 15 MG TAB PO SCH (09:45)
[2022-11-13] MEDS ORDERED: Empagliflozin 25 MG TAB PO SCH (09:45)
[2022-11-13] MEDS: EPOETIN ALFA-EPBX (ESRD) 10,000 UNITS/ML VIAL SC SCH (10:28)
[2022-11-13] MEDS: Ferrous Sulfate 325 MG TAB PO SCH (16:00)
[2022-11-13] MEDS: Benzonatate 100 MG CAP PO SCH ×2 (16:00→20:07)
[2022-11-13 18:26] LABS: Creatinine, Urine 104.53 mg/dL (47-110)
[2022-11-13] MEDS: Acetaminophen 325 MG TAB PO PRN (20:05)
[2022-11-13] MEDS: Rosuvastatin 10 MG TAB PO SCH (20:07)
[2022-11-13] MEDS ORDERED: traMADol HCl 50 MG TAB PO SCH (22:30)
[2022-11-14] MEDS: cefTRIAXone\\ROCEPHIN 1 GM in Sodium Chloride 0.9% 100 ML IVPB SCH (00:18)
[2022-11-14] MEDS: Azithromycin 500 MG in Sodium Chloride 0.9% 250 ML 250 ML IVPB SCH (00:19)
[2022-11-14 05:28] LABS: #Basophils 0.1 thou/uL (0.0-0.2); #Eosinphils 0.9 thou/uL (0.0-0.7); #Monocytes 0.5 thou/uL (0.11-0.59); %Basophils 1.1 % (0.0-1.0); %Eosinophils 10.9 % (0.0-10.0); %Lymphocytes 16.1 % (21.0-51.0); %Monocytes 5.8 % (0.0-10.0); Hemoglobin 9.2 g/dL (12.0-16.0); Mean Corpuscular HGB CONC 30.8 g/dL (32.0-36.0); Mean Corpuscular Hemoglobin 24.6 pg (27.0-31.0); Mean Corpuscular Volume 79.9 fl (78.0-98.0); Mean Platelet Volume 11.8 fL (7.4-10.4); RBC Distribution Width 16.3 % (11.5-14.5); Red Blood Cell (RBC) Count 3.74 mill/uL (4.20-5.40)
[2022-11-14 05:44] LABS: Platelet Count 109 10x3/uL (130-400)
[2022-11-14 05:52] LABS: Anion Gap 13 mmol/L (10-20); BUN (Urea Nitrogen) 39 mg/dL (9.8-20.1); Calc. Creatinine Clearance 32 mL/min (70-130); Calcium 8.8 mg/dL (7.8-10.44); Carbon Dioxide 21 mmol/L (22-29); Chloride 106 mmol/L (98-107); Estimated GFR 12; Glucose 93 mg/dL (70-105); Magnesium 2.1 mg/dL (1.6-2.6); Sodium 136 mmol/L (136-145)
[2022-11-14 07:42] LABS: CK (CPK) 183 U/L (29-168)
[2022-11-14] MEDS: Aspirin 81 mg Enteric Coated Tablet PO SCH (08:58)
[2022-11-14] MEDS: Benzonatate 100 MG CAP PO SCH ×3 (08:58→21:54)
[2022-11-14] MEDS: Acetaminophen 325 MG TAB PO PRN (08:58)
[2022-11-14] MEDS: Rivaroxaban 15 MG TAB PO SCH (08:58)
[2022-11-14] MEDS: Carvedilol 25 MG TAB PO SCH ×2 (08:59→21:54)
[2022-11-14] MEDS: hydrALAZINE 25 MG TAB PO SCH ×3 (08:59→21:54)
[2022-11-14] MEDS: Ferrous Sulfate 325 MG TAB PO SCH ×2 (08:59→17:40)
[2022-11-14] MEDS: Sertraline 25 MG TAB PO SCH (08:59)
[2022-11-14] MEDS: Sodium Bicarbonate 150 MEQ in Sterile Water 1,000 ML IV SCH ×2 (09:00→17:40)
[2022-11-14] MEDS ORDERED: Empagliflozin 25 MG TAB PO SCH (09:00)
[2022-11-14] MEDS: Pantoprazole 40 MG VIAL IVP SCH (09:00)
[2022-11-14] MEDS ORDERED: SUMAtriptan Succinate 50 MG TAB PO PRN (11:52)
[2022-11-14] MEDS: Rosuvastatin 10 MG TAB PO SCH (21:55)
[2022-11-14] MEDS: Topiramate 25 MG TAB PO SCH (21:55)
[2022-11-15] MEDS: cefTRIAXone\\ROCEPHIN 1 GM in Sodium Chloride 0.9% 100 ML IVPB SCH (00:54)
[2022-11-15] MEDS: Azithromycin 500 MG in Sodium Chloride 0.9% 250 ML 250 ML IVPB SCH (00:55)
[2022-11-15] MEDS: Ondansetron PF 4 MG/2 ML Vial IVP PRN ×2 (04:17→13:59)
[2022-11-15 05:33] LABS: #Basophils 0.1 thou/uL (0.0-0.2); #Eosinphils 0.7 thou/uL (0.0-0.7); #Monocytes 0.4 thou/uL (0.11-0.59); #Neutrophils 3.8 thou/uL (1.40-6.50); %Basophils 1.1 % (0.0-1.0); %Monocytes 6.3 % (0.0-10.0); %Neutrophils 57.7 % (42.0-75.0); Hemoglobin 8.7 g/dL (12.0-16.0); Mean Corpuscular HGB CONC 31.6 g/dL (32.0-36.0); Mean Corpuscular Hemoglobin 25.1 pg (27.0-31.0); Mean Corpuscular Volume 79.3 fl (78.0-98.0); Mean Platelet Volume 11.7 fL (7.4-10.4); RBC Distribution Width 16.6 % (11.5-14.5); Red Blood Cell (RBC) Count 3.47 mill/uL (4.20-5.40); White Blood Cell (WBC) Count 6.7 10x3/uL (4.8-10.8)
[2022-11-15 05:36] LABS: Platelet Count 108 10x3/uL (130-400)
[2022-11-15 05:54] LABS: Anion Gap 12 mmol/L (10-20); BUN (Urea Nitrogen) 41 mg/dL (9.8-20.1); Calc. Creatinine Clearance 36 mL/min (70-130); Calcium 8.6 mg/dL (7.8-10.44); Carbon Dioxide 26 mmol/L (22-29); Chloride 100 mmol/L (98-107); Estimated GFR 14; Glucose 141 mg/dL (70-105); Magnesium 1.9 mg/dL (1.6-2.6); Potassium 3.6 mmol/L (3.5-5.1); Sodium 134 mmol/L (136-145)
[2022-11-15] MEDS: guaiFENesin/Codeine 200 mg/20 mg 10 ml Cup PO PRN (07:32)
[2022-11-15] MEDS: Benzonatate 100 MG CAP PO SCH ×3 (08:38→20:34)
[2022-11-15] MEDS: Pantoprazole 40 MG VIAL IVP SCH (08:38)
[2022-11-15] MEDS: hydrALAZINE 25 MG TAB PO SCH ×3 (08:38→20:34)
[2022-11-15] MEDS: Carvedilol 25 MG TAB PO SCH ×2 (08:38→20:34)
[2022-11-15] MEDS: Rivaroxaban 15 MG TAB PO SCH (08:39)
[2022-11-15] MEDS: Aspirin 81 mg Enteric Coated Tablet PO SCH (08:39)
[2022-11-15] MEDS: Ferrous Sulfate 325 MG TAB PO SCH ×2 (08:39→17:28)
[2022-11-15] MEDS: Sertraline 25 MG TAB PO SCH (08:39)
[2022-11-15] MEDS: Topiramate 25 MG TAB PO SCH (20:35)
[2022-11-15] MEDS: Rosuvastatin 10 MG TAB PO SCH (20:35)
[2022-11-16] MEDS: Ipratropium/Albuterol 3 ML NEB NEB SCH ×5 (00:03→18:47)
[2022-11-16] MEDS: cefTRIAXone\\ROCEPHIN 1 GM in Sodium Chloride 0.9% 100 ML IVPB SCH (01:15)
[2022-11-16] MEDS: Azithromycin 500 MG in Sodium Chloride 0.9% 250 ML 250 ML IVPB SCH (01:54)
[2022-11-16 06:11] LABS: Anion Gap 15 mmol/L (10-20); BUN (Urea Nitrogen) 52 mg/dL (9.8-20.1); Calc. Creatinine Clearance 31 mL/min (70-130); Calcium 8.5 mg/dL (7.8-10.44); Carbon Dioxide 24 mmol/L (22-29); Chloride 96 mmol/L (98-107); Estimated GFR 11; Glucose 151 mg/dL (70-105); Potassium 4.1 mmol/L (3.5-5.1); Sodium 131 mmol/L (136-145)
[2022-11-16 07:34] LABS: Albumin 3.4 g/dL (3.5-5.0); Phosphorus 5.1 mg/dL (2.3-4.7)
[2022-11-16] MEDS ORDERED: Sodium Chloride 0.9% 1,000 ML IV SCH (08:30)
[2022-11-16] MEDS: hydrALAZINE 25 MG TAB PO SCH ×3 (08:33→20:50)
[2022-11-16] MEDS: Aspirin 81 mg Enteric Coated Tablet PO SCH (08:34)
[2022-11-16] MEDS: Sertraline 25 MG TAB PO SCH (08:34)
[2022-11-16] MEDS: Ferrous Sulfate 325 MG TAB PO SCH ×2 (08:34→16:24)
[2022-11-16] MEDS: Rivaroxaban 15 MG TAB PO SCH (08:34)
[2022-11-16] MEDS: Pantoprazole 40 MG VIAL IVP SCH (08:34)
[2022-11-16] MEDS: Benzonatate 100 MG CAP PO SCH ×3 (08:34→20:50)
[2022-11-16] MEDS: Carvedilol 25 MG TAB PO SCH ×2 (08:34→20:51)
[2022-11-16] MEDS: guaiFENesin ER 600 MG TAB PO SCH ×2 (09:53→20:51)
[2022-11-16] MEDS ORDERED: Vancomycin Dose by Levels Sliding Scale (Wt > 99) FS SCH (13:45)
[2022-11-16] MEDS ORDERED: VANCOMYCIN 2 GRAM/500 ML BAG 2 GM in Premix Bag 1 BAG IVPB SCH (13:45)
[2022-11-16 14:58] LABS: Anion Gap 13 mmol/L (10-20); BUN (Urea Nitrogen) 51 mg/dL (9.8-20.1); Calc. Creatinine Clearance 32 mL/min (70-130); Calcium 8.9 mg/dL (7.8-10.44); Carbon Dioxide 25 mmol/L (22-29); Chloride 96 mmol/L (98-107); Estimated GFR 12; Glucose 135 mg/dL (70-105); Potassium 3.8 mmol/L (3.5-5.1); Sodium 130 mmol/L (136-145)
[2022-11-16] MEDS: Sodium Chloride 0.9% 1,000 ML IV SCH (16:24)
[2022-11-16] MEDS: Polyethylene Glycol 3350 17 GM Packet PO PRN (18:35)
[2022-11-16] MEDS: Rosuvastatin 10 MG TAB PO SCH (20:51)
[2022-11-16] MEDS: Topiramate 25 MG TAB PO SCH (20:51)
[2022-11-16] MEDS ORDERED: Vancomycin 1 GM in Premix Bag 1 BAG IVPB SCH (21:00)
[2022-11-17] MEDS: cefTRIAXone\\ROCEPHIN 1 GM in Sodium Chloride 0.9% 100 ML IVPB SCH (00:58)
[2022-11-17] MEDS: Azithromycin 500 MG in Sodium Chloride 0.9% 250 ML 250 ML IVPB SCH (02:40)
[2022-11-17 05:55] LABS: Anion Gap 14 mmol/L (10-20); BUN (Urea Nitrogen) 50 mg/dL (9.8-20.1); Calc. Creatinine Clearance 34 mL/min (70-130); Calcium 8.4 mg/dL (7.8-10.44); Carbon Dioxide 22 mmol/L (22-29); Chloride 99 mmol/L (98-107); Estimated GFR 13; Glucose 108 mg/dL (70-105); Potassium 4.1 mmol/L (3.5-5.1); Sodium 131 mmol/L (136-145)
[2022-11-17] MEDS: Ipratropium/Albuterol 3 ML NEB NEB SCH ×5 (07:00→22:53)
[2022-11-17] MEDS: Rivaroxaban 15 MG TAB PO SCH (08:59)
[2022-11-17] MEDS: guaiFENesin ER 600 MG TAB PO SCH ×2 (08:59→20:35)
[2022-11-17] MEDS: Aspirin 81 mg Enteric Coated Tablet PO SCH (08:59)
[2022-11-17] MEDS: Benzonatate 100 MG CAP PO SCH ×3 (08:59→20:36)
[2022-11-17] MEDS: Ferrous Sulfate 325 MG TAB PO SCH ×2 (08:59→16:20)
[2022-11-17] MEDS: Carvedilol 25 MG TAB PO SCH ×2 (09:00→20:35)
[2022-11-17] MEDS: Pantoprazole 40 MG VIAL IVP SCH (09:00)
[2022-11-17] MEDS: Polyethylene Glycol 3350 17 GM Packet PO SCH (09:01)
[2022-11-17] MEDS: Sertraline 25 MG TAB PO SCH (09:01)
[2022-11-17] MEDS: hydrALAZINE 25 MG TAB PO SCH ×3 (11:58→20:35)
[2022-11-17 14:52] LABS: Vancomycin, Random 17.6 ug/mL (See Comment)
[2022-11-17] MEDS ORDERED: Vancomycin HCl 750 MG in Sodium Chloride 0.9% 250 ML 250 ML IVPB SCH (15:15)
[2022-11-17] MEDS: Sodium Chloride 0.9% 1,000 ML IV SCH (15:59)
[2022-11-17] MEDS: Ondansetron PF 4 MG/2 ML Vial IVP PRN (18:38)
[2022-11-17] MEDS: Rosuvastatin 10 MG TAB PO SCH (20:36)
[2022-11-17] MEDS: Topiramate 25 MG TAB PO SCH (20:36)
[2022-11-18] MEDS ORDERED: Calcium Carbonate 500 MG ChewTAB PO PRN (00:11)
[2022-11-18] MEDS: cefTRIAXone\\ROCEPHIN 1 GM in Sodium Chloride 0.9% 100 ML IVPB SCH (00:20)
[2022-11-18] MEDS: Ondansetron PF 4 MG/2 ML Vial IVP PRN (01:11)
[2022-11-18] MEDS: guaiFENesin/Codeine 200 mg/20 mg 10 ml Cup PO PRN (01:15)
[2022-11-18] MEDS: Azithromycin 500 MG in Sodium Chloride 0.9% 250 ML 250 ML IVPB SCH (01:16)
[2022-11-18 05:53] LABS: Hemoglobin 9.7 g/dL (12.0-16.0); Mean Corpuscular HGB CONC 31.6 g/dL (32.0-36.0); Mean Corpuscular Hemoglobin 24.7 pg (27.0-31.0); Mean Corpuscular Volume 78.1 fl (78.0-98.0); Mean Platelet Volume 11.5 fL (7.4-10.4); Platelet Count 132 10x3/uL (130-400); RBC Distribution Width 17.7 % (11.5-14.5); Red Blood Cell (RBC) Count 3.93 mill/uL (4.20-5.40); White Blood Cell (WBC) Count 12.4 10x3/uL (4.8-10.8)
[2022-11-18 06:19] LABS: Anion Gap 15 mmol/L (10-20); BUN (Urea Nitrogen) 58 mg/dL (9.8-20.1); Calc. Creatinine Clearance 34 mL/min (70-130); Calcium 8.8 mg/dL (7.8-10.44); Carbon Dioxide 22 mmol/L (22-29); Chloride 96 mmol/L (98-107); Estimated GFR 13; Glucose 96 mg/dL (70-105); Potassium 4.6 mmol/L (3.5-5.1); Sodium 128 mmol/L (136-145)
[2022-11-18 06:49] LABS: Delete Auto Diff?? YES; Manual Diff?? YES
[2022-11-18] MEDS: Ipratropium/Albuterol 3 ML NEB NEB SCH ×3 (07:12→19:41)
[2022-11-18 08:10] LABS: Band 4 % (5-11); Burr Cells SLIGHT = 2-5 cells HPF (0-1); Eosinophils 3 % (0-10); Hypochromia SLIGHT = 6-15 cells HPF (0-5); Large Platelets 2.9 % (0-5); Lymphocytes 12 % (21-51); Microcytosis SLIGHT = 6-15 cells HPF (0-5); Monocytes 3 % (0-10); Neutrophil 78 % (42-75); Nucleated RBC (Manual Ct) 2 % (0); Ovalocytes SLIGHT = 2-5 cells HPF (0-1); Platelet Adequacy Comment Platelets Normal; Polychromasia MODERATE = 3-4 cells HPF (0-2); Tear Drops SLIGHT = 2-5 cells HPF (0-1); Total Cell Count 102
[2022-11-18] MEDS: Ferrous Sulfate 325 MG TAB PO SCH ×2 (09:53→18:08)
[2022-11-18] MEDS: Benzonatate 100 MG CAP PO SCH ×3 (09:53→20:03)
[2022-11-18] MEDS: guaiFENesin ER 600 MG TAB PO SCH ×2 (09:53→20:03)
[2022-11-18] MEDS: Polyethylene Glycol 3350 17 GM Packet PO SCH (09:53)
[2022-11-18] MEDS: Aspirin 81 mg Enteric Coated Tablet PO SCH (09:53)
[2022-11-18] MEDS: hydrALAZINE 25 MG TAB PO SCH ×3 (09:54→20:05)
[2022-11-18] MEDS: Rivaroxaban 15 MG TAB PO SCH (09:55)
[2022-11-18] MEDS: Sertraline 25 MG TAB PO SCH (09:55)
[2022-11-18] MEDS: Carvedilol 25 MG TAB PO SCH ×2 (09:55→20:04)
[2022-11-18] MEDS: Pantoprazole 40 MG VIAL IVP SCH (09:55)
[2022-11-18] MEDS: Sodium Chloride 0.9% 1,000 ML IV SCH (12:57)
[2022-11-18] MEDS: Polyethylene Glycol 3350 17 GM Packet PO PRN (16:33)
[2022-11-18] MEDS: Rosuvastatin 10 MG TAB PO SCH (20:03)
[2022-11-18] MEDS: Topiramate 25 MG TAB PO SCH (20:06)
[2022-11-19] MEDS: cefTRIAXone\\ROCEPHIN 1 GM in Sodium Chloride 0.9% 100 ML IVPB SCH (00:55)
[2022-11-19] MEDS: Sodium Chloride 0.9% 1,000 ML IV SCH (02:08)
[2022-11-19] MEDS: Azithromycin 500 MG in Sodium Chloride 0.9% 250 ML 250 ML IVPB SCH (02:08)
[2022-11-19] MEDS: Ipratropium/Albuterol 3 ML NEB NEB SCH ×4 (02:16→19:28)
[2022-11-19 06:05] LABS: Mean Corpuscular HGB CONC 31.8 g/dL (32.0-36.0); Mean Corpuscular Hemoglobin 25.1 pg (27.0-31.0); Mean Corpuscular Volume 79.1 fl (78.0-98.0); Mean Platelet Volume 11.7 fL (7.4-10.4); Platelet Count 130 10x3/uL (130-400); RBC Distribution Width 17.8 % (11.5-14.5); Red Blood Cell (RBC) Count 3.58 mill/uL (4.20-5.40)
[2022-11-19 06:15] LABS: Delete Auto Diff?? YES; Manual Diff?? YES
[2022-11-19 06:31] LABS: Anion Gap 16 mmol/L (10-20); BUN (Urea Nitrogen) 61 mg/dL (9.8-20.1); Calc. Creatinine Clearance 33 mL/min (70-130); Calcium 8.5 mg/dL (7.8-10.44); Carbon Dioxide 18 mmol/L (22-29); Chloride 92 mmol/L (98-107); Estimated GFR 12; Glucose 114 mg/dL (70-105); Potassium 4.7 mmol/L (3.5-5.1); Sodium 121 mmol/L (136-145)
[2022-11-19 06:47] LABS: Band 3 % (5-11); Burr Cells SLIGHT = 2-5 cells HPF (0-1); CellaVision Operator ID lab.abc; Eosinophils 2 % (0-10); Lymphocytes 9 % (21-51); Metamyelocyte 1 % (0-0); Monocytes 3 % (0-10); Myelocyte 1 % (0-0); Neutrophil 79 % (42-75); Platelet Adequacy Comment Platelets Normal; Polychromasia MODERATE = 3-4 cells HPF (0-2); Total Cell Count 100
[2022-11-19] MEDS: Ferrous Sulfate 325 MG TAB PO SCH ×2 (09:16→18:45)
[2022-11-19] MEDS: guaiFENesin ER 600 MG TAB PO SCH ×2 (09:16→21:20)
[2022-11-19] MEDS: Aspirin 81 mg Enteric Coated Tablet PO SCH (09:16)
[2022-11-19] MEDS: Benzonatate 100 MG CAP PO SCH ×3 (09:17→21:20)
[2022-11-19] MEDS: Rivaroxaban 15 MG TAB PO SCH (09:17)
[2022-11-19] MEDS: Carvedilol 25 MG TAB PO SCH ×2 (09:17→21:23)
[2022-11-19] MEDS: hydrALAZINE 25 MG TAB PO SCH ×3 (09:17→21:22)
[2022-11-19] MEDS: Pantoprazole 40 MG VIAL IVP SCH (09:18)
[2022-11-19] MEDS: Polyethylene Glycol 3350 17 GM Packet PO SCH (09:18)
[2022-11-19] MEDS: Sertraline 25 MG TAB PO SCH (09:32)
[2022-11-19] MEDS ORDERED: Bisacodyl 10 MG SUPP PR PRN ×2 (10:34)
[2022-11-19] MEDS ORDERED: Bisacodyl 10 MG SUPP PR SCH (10:45)
[2022-11-19] MEDS: Sodium Bicarbonate Tab 325 MG TAB PO SCH ×2 (15:58→21:20)
[2022-11-19] MEDS: Rosuvastatin 10 MG TAB PO SCH (21:20)
[2022-11-19] MEDS: Topiramate 25 MG TAB PO SCH (21:20)
[2022-11-19] MEDS: Ondansetron PF 4 MG/2 ML Vial IVP PRN (21:27)
[2022-11-19] MEDS: Acetaminophen 325 MG TAB PO PRN (22:23)
[2022-11-19] MEDS: guaiFENesin/Codeine 200 mg/20 mg 10 ml Cup PO PRN (22:23)
[2022-11-19] MEDS ORDERED: Nitroglycerin 2% Ointment 1 INCH/1 GM Packet TOP SCH (23:30)
[2022-11-20 00:18] LABS: Troponin I 0.042 ng/mL (< 0.028)
[2022-11-20] MEDS ORDERED: Morphine 4 MG/ML VIAL SLOW IVP SCH (00:30)
[2022-11-20] MEDS: Ipratropium/Albuterol 3 ML NEB NEB SCH ×4 (01:44→19:20)
[2022-11-20 05:40] LABS: #Basophils 0.1 thou/uL (0.0-0.2); #Eosinphils 0.1 thou/uL (0.0-0.7); #Monocytes 0.5 thou/uL (0.11-0.59); #Neutrophils 9.7 thou/uL (1.40-6.50); %Basophils 0.5 % (0.0-1.0); %Eosinophils 0.6 % (0.0-10.0); %Lymphocytes 10.3 % (21.0-51.0); %Monocytes 4.3 % (0.0-10.0); %Neutrophils 77.7 % (42.0-75.0); Hemoglobin 8.8 g/dL (12.0-16.0); Mean Corpuscular HGB CONC 31.9 g/dL (32.0-36.0); Mean Corpuscular Volume 78.4 fl (78.0-98.0); Mean Platelet Volume 11.5 fL (7.4-10.4); Platelet Count 115 10x3/uL (130-400); RBC Distribution Width 17.8 % (11.5-14.5); Red Blood Cell (RBC) Count 3.52 mill/uL (4.20-5.40); White Blood Cell (WBC) Count 12.5 10x3/uL (4.8-10.8)
[2022-11-20 06:08] LABS: Anion Gap 17 mmol/L (10-20); BUN (Urea Nitrogen) 65 mg/dL (9.8-20.1); Calc. Creatinine Clearance 30 mL/min (70-130); Calcium 8.8 mg/dL (7.8-10.44); Carbon Dioxide 16 mmol/L (22-29); Chloride 89 mmol/L (98-107); Estimated GFR 11; Glucose 132 mg/dL (70-105); Potassium 4.7 mmol/L (3.5-5.1)
[2022-11-20 06:26] LABS: Sodium 117 mmol/L (136-145)
[2022-11-20] MEDS ORDERED: SUMAtriptan Succinate 25 MG TAB PO PRN (08:01)
[2022-11-20] MEDS ORDERED: Meclizine HCl 25 MG TAB PO PRN (08:01)
[2022-11-20] MEDS ORDERED: Nitroglycerin 0.4 MG TAB (25 Tab Bottle) SL PRN (08:01)
[2022-11-20] MEDS: Furosemide 40 MG/4 ML VIAL SLOW IVP SCH ×2 (09:24→21:47)
[2022-11-20] MEDS: Sodium Bicarbonate Tab 325 MG TAB PO SCH ×3 (09:28→21:45)
[2022-11-20] MEDS: Sertraline 25 MG TAB PO SCH (09:29)
[2022-11-20] MEDS: Ferrous Sulfate 325 MG TAB PO SCH ×2 (09:30→18:40)
[2022-11-20] MEDS: Rivaroxaban 15 MG TAB PO SCH (09:30)
[2022-11-20] MEDS: guaiFENesin ER 600 MG TAB PO SCH ×2 (09:30→21:45)
[2022-11-20] MEDS: Aspirin 81 mg Enteric Coated Tablet PO SCH (09:30)
[2022-11-20] MEDS: Benzonatate 100 MG CAP PO SCH ×3 (09:30→21:47)
[2022-11-20] MEDS: EPOETIN ALFA-EPBX (ESRD) 10,000 UNITS/ML VIAL SC SCH (09:31)
[2022-11-20] MEDS: Carvedilol 25 MG TAB PO SCH ×2 (09:31→21:47)
[2022-11-20] MEDS: hydrALAZINE 25 MG TAB PO SCH ×3 (09:31→21:46)
[2022-11-20] MEDS: Pantoprazole 40 MG VIAL IVP SCH (09:32)
[2022-11-20] MEDS: Polyethylene Glycol 3350 17 GM Packet PO SCH (09:32)
[2022-11-20] MEDS ORDERED: Admixture Fee 1 EACH in Sodium Chloride 3% 100 ML IVPB SCH (10:00)
[2022-11-20 14:40] LABS: Anion Gap 17 mmol/L (10-20); BUN (Urea Nitrogen) 70 mg/dL (9.8-20.1); Calc. Creatinine Clearance 28 mL/min (70-130); Calcium 8.7 mg/dL (7.8-10.44); Carbon Dioxide 18 mmol/L (22-29); Chloride 87 mmol/L (98-107); Estimated GFR 10; Glucose 151 mg/dL (70-105); Potassium 4.9 mmol/L (3.5-5.1)
[2022-11-20 15:03] LABS: Sodium 117 mmol/L (136-145)
[2022-11-20] MEDS ORDERED: Sodium Chloride 3% 100 ML IVPB SCH (16:15)
[2022-11-20 18:45] LABS: Anion Gap 18 mmol/L (10-20); BUN (Urea Nitrogen) 71 mg/dL (9.8-20.1); Calc. Creatinine Clearance 28 mL/min (70-130); Calcium 8.7 mg/dL (7.8-10.44); Carbon Dioxide 19 mmol/L (22-29); Chloride 88 mmol/L (98-107); Estimated GFR 10; Glucose 149 mg/dL (70-105); Potassium 4.9 mmol/L (3.5-5.1); Sodium 120 mmol/L (136-145)
[2022-11-20] MEDS: Topiramate 25 MG TAB PO SCH (21:47)
[2022-11-20] MEDS: Rosuvastatin 10 MG TAB PO SCH (21:47)
[2022-11-21 00:25] LABS: Anion Gap 17 mmol/L (10-20); BUN (Urea Nitrogen) 69 mg/dL (9.8-20.1); Calc. Creatinine Clearance 28 mL/min (70-130); Calcium 8.7 mg/dL (7.8-10.44); Carbon Dioxide 19 mmol/L (22-29); Chloride 87 mmol/L (98-107); Estimated GFR 10; Glucose 194 mg/dL (70-105)
[2022-11-21] MEDS: Ipratropium/Albuterol 3 ML NEB NEB SCH ×5 (00:25→23:32)
[2022-11-21 00:47] LABS: Sodium 118 mmol/L (136-145)
[2022-11-21] MEDS: Acetaminophen 325 MG TAB PO PRN (03:27)
[2022-11-21 05:53] LABS: Hemoglobin 8.8 g/dL (12.0-16.0); Mean Corpuscular HGB CONC 33.1 g/dL (32.0-36.0); Mean Corpuscular Volume 78.5 fl (78.0-98.0); Mean Platelet Volume 11.8 fL (7.4-10.4); Platelet Count 113 10x3/uL (130-400); Red Blood Cell (RBC) Count 3.39 mill/uL (4.20-5.40); White Blood Cell (WBC) Count 11.3 10x3/uL (4.8-10.8)
[2022-11-21 05:56] LABS: Delete Auto Diff?? YES; Manual Diff?? YES
[2022-11-21 06:26] LABS: Anisocytosis SLIGHT = 6-15 cells HPF (0-5); Band 4 % (5-11); Burr Cells SLIGHT = 2-5 cells HPF (0-1); CellaVision Operator ID lab.abc; Large Platelets 5.9 % (0-5); Lymphocytes 4 % (21-51); Monocytes 3 % (0-10); Myelocyte 1 % (0-0); Neutrophil 87 % (42-75); Platelet Adequacy Comment Platelets Decreased; Polychromasia MODERATE = 3-4 cells HPF (0-2); Total Cell Count 101
[2022-11-21] MEDS: HumaLOG 300 UNITS/3 ML VIAL SC PRN ×3 (06:38→17:43)
[2022-11-21 06:40] LABS: ALT (SGPT) 870 U/L (8-55); AST (SGOT) 312 U/L (5-34); Albumin 3.7 g/dL (3.5-5.0); Alkaline Phosphatase 78 U/L (40-110); Anion Gap 19 mmol/L (10-20); BUN (Urea Nitrogen) 71 mg/dL (9.8-20.1); Bilirubin, Total 0.5 mg/dL (0.2-1.2); Calc. Creatinine Clearance 27 mL/min (70-130); Calcium 8.6 mg/dL (7.8-10.44); Carbon Dioxide 16 mmol/L (22-29); Chloride 88 mmol/L (98-107); Estimated GFR 10; Globulin 2.9 g/dL (2.4-3.5); Glucose 193 mg/dL (70-105); Potassium 5.4 mmol/L (3.5-5.1); Protein, Total 6.6 g/dL (6.0-8.3)
[2022-11-21 06:45] LABS: Sodium 118 mmol/L (136-145)
[2022-11-21] MEDS: Polyethylene Glycol 3350 17 GM Packet PO SCH (09:08)
[2022-11-21] MEDS: hydrALAZINE 25 MG TAB PO SCH ×3 (09:09→20:42)
[2022-11-21] MEDS: Aspirin 81 mg Enteric Coated Tablet PO SCH (09:11)
[2022-11-21] MEDS: Benzonatate 100 MG CAP PO SCH ×3 (09:11→20:35)
[2022-11-21] MEDS: Ferrous Sulfate 325 MG TAB PO SCH ×2 (09:11→17:36)
[2022-11-21] MEDS: guaiFENesin ER 600 MG TAB PO SCH ×2 (09:11→20:35)
[2022-11-21] MEDS: Sodium Bicarbonate Tab 325 MG TAB PO SCH ×3 (09:11→20:41)
[2022-11-21] MEDS: Rivaroxaban 15 MG TAB PO SCH (09:11)
[2022-11-21] MEDS: Carvedilol 25 MG TAB PO SCH ×2 (09:12→20:35)
[2022-11-21] MEDS ORDERED: LOKELMA 10 GM PACKET PO SCH (09:15)
[2022-11-21] MEDS: Furosemide 40 MG/4 ML VIAL SLOW IVP SCH (09:25)
[2022-11-21] MEDS: Sertraline 25 MG TAB PO SCH (10:09)
[2022-11-21] MEDS: Iron, Sodium Ferric Gluconate 250 MG in Sodium Chloride 0.9% 250 ML 250 ML IVPB SCH (10:57)
[2022-11-21] MEDS ORDERED: Metolazone 2.5 MG TAB PO SCH (13:15)
[2022-11-21] MEDS: HYDROcodone/Acetaminophen 5/325 mg Tablet PO PRN ×2 (13:50→20:42)
[2022-11-21] MEDS ORDERED: Furosemide 40 MG/4 ML VIAL SLOW IVP SCH (14:00)
[2022-11-21] MEDS ORDERED: Communication Order-Pharmacy FS SCH (17:17)
[2022-11-21] MEDS ORDERED: DOBUTamine 500 mg/250 ml 250 ML IVPB SCH (17:30)
[2022-11-21 18:31] LABS: Hemoglobin 8.6 g/dL (12.0-16.0); Platelet Count 91 10x3/uL (130-400)
[2022-11-21 18:54] LABS: Anion Gap 17 mmol/L (10-20); BUN (Urea Nitrogen) 72 mg/dL (9.8-20.1); Calc. Creatinine Clearance 27 mL/min (70-130); Calcium 8.4 mg/dL (7.8-10.44); Carbon Dioxide 18 mmol/L (22-29); Chloride 87 mmol/L (98-107); Estimated GFR 10; Glucose 204 mg/dL (70-105); Potassium 4.7 mmol/L (3.5-5.1)
[2022-11-21 19:18] LABS: Sodium 117 mmol/L (136-145)
[2022-11-21] MEDS: Rosuvastatin 10 MG TAB PO SCH (20:42)
[2022-11-21] MEDS: Topiramate 25 MG TAB PO SCH (20:42)
[2022-11-21] MEDS: DOBUTamine 500 mg/250 ml 250 ML IVPB SCH (22:14)
[2022-11-22 05:10] LABS: Hemoglobin 8.6 g/dL (12.0-16.0); Mean Corpuscular HGB CONC 32.7 g/dL (32.0-36.0); Mean Corpuscular Hemoglobin 25.3 pg (27.0-31.0); Mean Corpuscular Volume 77.4 fl (78.0-98.0); Mean Platelet Volume 11.7 fL (7.4-10.4); Platelet Count 101 10x3/uL (130-400); RBC Distribution Width 18.4 % (11.5-14.5); White Blood Cell (WBC) Count 10.7 10x3/uL (4.8-10.8)
[2022-11-22 05:17] LABS: Delete Auto Diff?? YES; Manual Diff?? YES
[2022-11-22 05:39] LABS: Anion Gap 19 mmol/L (10-20); BUN (Urea Nitrogen) 77 mg/dL (9.8-20.1); Calc. Creatinine Clearance 29 mL/min (70-130); Calcium 8.4 mg/dL (7.8-10.44); Carbon Dioxide 17 mmol/L (22-29); Chloride 86 mmol/L (98-107); Estimated GFR 9; Glucose 154 mg/dL (70-105); Potassium 4.7 mmol/L (3.5-5.1); Sodium 117 mmol/L (136-145)
[2022-11-22] MEDS ORDERED: Furosemide 40 MG/4 ML VIAL SLOW IVP SCH (06:00)
[2022-11-22 07:02] LABS: Anisocytosis SLIGHT = 6-15 cells HPF (0-5); Band 4 % (5-11); CellaVision Operator ID LAB.JMM; Lymphocytes 10 % (21-51); Macrocytosis SLIGHT = 6-15 cells HPF (0-5); Monocytes 2 % (0-10); Neutrophil 84 % (42-75); Nucleated RBC (Manual Ct) 1 % (0); Platelet Adequacy Comment Platelets Decreased; Polychromasia SLIGHT = 2-3 cells HPF (0-2); Total Cell Count 100
[2022-11-22] MEDS ORDERED: Albumin 25% 25 GM/100 ML BOT IVPB SCH (07:15)
[2022-11-22] MEDS: Ipratropium/Albuterol 3 ML NEB NEB SCH ×4 (07:18→23:42)
[2022-11-22] MEDS: Ferrous Sulfate 325 MG TAB PO SCH ×2 (07:34→17:13)
[2022-11-22] MEDS ORDERED: Lactated Ringer's 500 ML IV SCH (08:30)
[2022-11-22] MEDS: Sodium Bicarbonate Tab 325 MG TAB PO SCH ×3 (09:01→20:47)
[2022-11-22] MEDS: Sertraline 25 MG TAB PO SCH (09:02)
[2022-11-22] MEDS: Aspirin 81 mg Enteric Coated Tablet PO SCH (09:02)
[2022-11-22] MEDS: Benzonatate 100 MG CAP PO SCH ×3 (09:03→20:47)
[2022-11-22] MEDS: Carvedilol 25 MG TAB PO SCH ×2 (09:03→20:47)
[2022-11-22] MEDS: Polyethylene Glycol 3350 17 GM Packet PO SCH (09:03)
[2022-11-22] MEDS: hydrALAZINE 25 MG TAB PO SCH ×3 (09:03→20:47)
[2022-11-22] MEDS: guaiFENesin ER 600 MG TAB PO SCH ×2 (09:03→20:46)
[2022-11-22] MEDS: DOBUTamine 500 mg/250 ml 250 ML IVPB SCH ×2 (09:05→20:48)
[2022-11-22] MEDS: Iron, Sodium Ferric Gluconate 250 MG in Sodium Chloride 0.9% 250 ML 250 ML IVPB SCH (09:05)
[2022-11-22] MEDS: HumaLOG 300 UNITS/3 ML VIAL SC PRN ×2 (11:17→17:27)
[2022-11-22] MEDS: Albumin 25% 25 GM/100 ML BOT IVPB SCH ×2 (11:19→17:13)
[2022-11-22 15:15] LABS: Bacteria/HPF None Seen HPF (None Seen); Bilirubin Negative (Negative); Blood, Urine Trace (Negative); Clarity Clear (Clear); Glucose, Urine (Dipstick) 100 mg/dL (Negative); Ketone, Urine Negative (Negative); Leukocyte Negative Leu/uL (Negative); Nitrite Negative (Negative); Protein, Urine (Dipstick) 300 mg/dL (Neg-Trace); RBC/HPF 0-3 HPF (0-3); Specific Gravity, Urine 1.013 (1.002-1.036); Squamous Epithelial None Seen HPF (0-3); Urobilinogen Normal mg/dL (Less than 2); WBC/HPF 0-3 HPF (0-3); pH, Urine 5.5 (5.0-9.0)
[2022-11-22 16:52] LABS: Lactic Acid 0.9 mmol/L (0.5-2.2)
[2022-11-22 16:57] LABS: Albumin 4.1 g/dL (3.5-5.0); Anion Gap 16 mmol/L (10-20); BUN (Urea Nitrogen) 74 mg/dL (9.8-20.1); BUN/Creatinine Ratio 14.57; Calc. Creatinine Clearance 30 mL/min (70-130); Calcium 8.4 mg/dL (7.8-10.44); Carbon Dioxide 19 mmol/L (22-29); Cardiac Risk 5.5 (Less than 4.5); Chloride 88 mmol/L (98-107); Cholesterol 155 mg/dl (< 200 Desired); Estimated GFR 10; Glucose 185 mg/dL (70-105); HDL Cholesterol 28 mg/dL (>60 Neg Risk); LDL Cholesterol, Calculated 88 mg/dL; Phosphorus 6.6 mg/dL (2.3-4.7); Potassium 4.1 mmol/L (3.5-5.1); Triglycerides 195 mg/dL (Less than 150)
[2022-11-22 17:07] LABS: Sodium 119 mmol/L (136-145)
[2022-11-22] MEDS: HYDROcodone/Acetaminophen 5/325 mg Tablet PO PRN (20:46)
[2022-11-22] MEDS: Rosuvastatin 10 MG TAB PO SCH (20:47)
[2022-11-22] MEDS: Topiramate 25 MG TAB PO SCH (20:47)
[2022-11-22] MEDS: Ondansetron PF 4 MG/2 ML Vial IVP PRN (20:48)
[2022-11-23] MEDS: Albumin 25% 25 GM/100 ML BOT IVPB SCH ×2 (00:08→05:24)
[2022-11-23 05:15] LABS: #Eosinphils 0.1 thou/uL (0.0-0.7); #Monocytes 0.6 thou/uL (0.11-0.59); #Neutrophils 5.2 thou/uL (1.40-6.50); %Basophils 0.4 % (0.0-1.0); %Eosinophils 1.9 % (0.0-10.0); %Lymphocytes 11.8 % (21.0-51.0); %Monocytes 8.9 % (0.0-10.0); %Neutrophils 74.1 % (42.0-75.0); Hemoglobin 7.6 g/dL (12.0-16.0); Mean Corpuscular HGB CONC 32.2 g/dL (32.0-36.0); Mean Corpuscular Hemoglobin 25.7 pg (27.0-31.0); Mean Corpuscular Volume 79.7 fl (78.0-98.0); Mean Platelet Volume 11.1 fL (7.4-10.4); RBC Distribution Width 18.5 % (11.5-14.5); Red Blood Cell (RBC) Count 2.96 mill/uL (4.20-5.40)
[2022-11-23 05:24] LABS: Platelet Count 79 10x3/uL (130-400)
[2022-11-23] MEDS: DOBUTamine 500 mg/250 ml 250 ML IVPB SCH ×2 (05:25→16:43)
[2022-11-23 05:51] LABS: Anisocytosis SLIGHT = 6-15 cells HPF (0-5); CellaVision Operator ID lab.abc; Microcytosis SLIGHT = 6-15 cells HPF (0-5); Platelet Adequacy Comment Platelets Decreased; Polychromasia MODERATE = 3-4 cells HPF (0-2); Smudge Cells 12.1 %
[2022-11-23 06:12] LABS: ALT (SGPT) 507 U/L (8-55); AST (SGOT) 108 U/L (5-34); Albumin 4.2 g/dL (3.5-5.0); Alkaline Phosphatase 64 U/L (40-110); Anion Gap 20 mmol/L (10-20); BUN (Urea Nitrogen) 74 mg/dL (9.8-20.1); Bilirubin, Total 0.8 mg/dL (0.2-1.2); CK (CPK) 907 U/L (29-168); Calc. Creatinine Clearance 29 mL/min (70-130); Calcium 8.6 mg/dL (7.8-10.44); Carbon Dioxide 17 mmol/L (22-29); Chloride 89 mmol/L (98-107); Estimated GFR 9; Globulin 2.4 g/dL (2.4-3.5); Glucose 172 mg/dL (70-105); Potassium 3.8 mmol/L (3.5-5.1); Protein, Total 6.6 g/dL (6.0-8.3); Sodium 122 mmol/L (136-145)
[2022-11-23] MEDS: Ipratropium/Albuterol 3 ML NEB NEB SCH ×3 (06:55→18:16)
[2022-11-23] MEDS: Polyethylene Glycol 3350 17 GM Packet PO SCH (09:48)
[2022-11-23] MEDS: Benzonatate 100 MG CAP PO SCH ×3 (09:48→20:07)
[2022-11-23] MEDS: Ferrous Sulfate 325 MG TAB PO SCH ×2 (09:48→16:45)
[2022-11-23] MEDS: Sodium Bicarbonate Tab 325 MG TAB PO SCH ×3 (09:48→20:06)
[2022-11-23] MEDS: hydrALAZINE 25 MG TAB PO SCH ×3 (09:49→20:06)
[2022-11-23] MEDS: Aspirin 81 mg Enteric Coated Tablet PO SCH (09:49)
[2022-11-23] MEDS: Sertraline 25 MG TAB PO SCH (09:49)
[2022-11-23] MEDS: Carvedilol 25 MG TAB PO SCH ×2 (09:50→20:06)
[2022-11-23] MEDS: guaiFENesin ER 600 MG TAB PO SCH ×2 (09:51→20:06)
[2022-11-23] MEDS: Iron, Sodium Ferric Gluconate 250 MG in Sodium Chloride 0.9% 250 ML 250 ML IVPB SCH (11:27)
[2022-11-23] MEDS: HumaLOG 300 UNITS/3 ML VIAL SC PRN ×3 (11:33→22:03)
[2022-11-23] MEDS ORDERED: Sodium Bicarbonate 150 MEQ in Sterile Water 1,000 ML IV SCH (12:45)
[2022-11-23] MEDS: Sevelamer Carbonate 800 MG TAB PO SCH (16:45)
[2022-11-23] MEDS: Topiramate 25 MG TAB PO SCH (20:07)
[2022-11-23] MEDS: HYDROcodone/Acetaminophen 5/325 mg Tablet PO PRN (20:10)
[2022-11-24] MEDS: Ipratropium/Albuterol 3 ML NEB NEB SCH ×4 (00:05→18:24)
[2022-11-24] MEDS: DOBUTamine 500 mg/250 ml 250 ML IVPB SCH ×2 (04:04→14:26)
[2022-11-24 04:57] LABS: #Eosinphils 0.2 thou/uL (0.0-0.7); #Monocytes 0.4 thou/uL (0.11-0.59); #Neutrophils 4.7 thou/uL (1.40-6.50); %Basophils 0.3 % (0.0-1.0); %Eosinophils 2.4 % (0.0-10.0); %Lymphocytes 11.8 % (21.0-51.0); %Monocytes 6.8 % (0.0-10.0); %Neutrophils 75.8 % (42.0-75.0); Hemoglobin 7.9 g/dL (12.0-16.0); Mean Corpuscular HGB CONC 32.8 g/dL (32.0-36.0); Mean Corpuscular Hemoglobin 25.4 pg (27.0-31.0); Mean Corpuscular Volume 77.5 fl (78.0-98.0); Mean Platelet Volume 11.7 fL (7.4-10.4); RBC Distribution Width 18.6 % (11.5-14.5); Red Blood Cell (RBC) Count 3.11 mill/uL (4.20-5.40); White Blood Cell (WBC) Count 6.2 10x3/uL (4.8-10.8)
[2022-11-24 04:59] LABS: Platelet Count 84 10x3/uL (130-400)
[2022-11-24 05:26] LABS: Albumin 4.3 g/dL (3.5-5.0); Anion Gap 19 mmol/L (10-20); BUN (Urea Nitrogen) 71 mg/dL (9.8-20.1); CK (CPK) 680 U/L (29-168); Calc. Creatinine Clearance 29 mL/min (70-130); Calcium 8.8 mg/dL (7.8-10.44); Carbon Dioxide 21 mmol/L (22-29); Chloride 86 mmol/L (98-107); Estimated GFR 9; Glucose 182 mg/dL (70-105); Phosphorus 6.2 mg/dL (2.3-4.7); Potassium 3.5 mmol/L (3.5-5.1); Sodium 122 mmol/L (136-145)
[2022-11-24] MEDS: Iron, Sodium Ferric Gluconate 250 MG in Sodium Chloride 0.9% 250 ML 250 ML IVPB SCH (09:13)
[2022-11-24] MEDS: Sertraline 25 MG TAB PO SCH (09:14)
[2022-11-24] MEDS: Polyethylene Glycol 3350 17 GM Packet PO SCH (09:14)
[2022-11-24] MEDS: guaiFENesin ER 600 MG TAB PO SCH ×2 (09:15→20:58)
[2022-11-24] MEDS: Aspirin 81 mg Enteric Coated Tablet PO SCH (09:15)
[2022-11-24] MEDS: Carvedilol 25 MG TAB PO SCH ×2 (09:15→21:00)
[2022-11-24] MEDS: Sodium Bicarbonate Tab 325 MG TAB PO SCH ×3 (09:15→20:58)
[2022-11-24] MEDS: hydrALAZINE 25 MG TAB PO SCH ×3 (09:15→20:59)
[2022-11-24] MEDS: Sevelamer Carbonate 800 MG TAB PO SCH ×3 (09:15→17:53)
[2022-11-24] MEDS: Benzonatate 100 MG CAP PO SCH ×3 (09:16→21:00)
[2022-11-24] MEDS: Ferrous Sulfate 325 MG TAB PO SCH ×2 (09:16→17:53)
[2022-11-24] MEDS ORDERED: Metolazone 2.5 MG TAB PO SCH (10:45)
[2022-11-24] MEDS ORDERED: Furosemide 40 MG/4 ML VIAL SLOW IVP SCH ×2 (10:45→14:00)
[2022-11-24] MEDS ORDERED: Sodium Bicarbonate 150 MEQ in Sterile Water 1,000 ML IV SCH (12:00)
[2022-11-24] MEDS ORDERED: Sodium Bicarbonate 150 MEQ in Dextrose 5% in Water 1,000 ML IV SCH (12:00)
[2022-11-24] MEDS: Furosemide 40 MG/4 ML VIAL SLOW IVP SCH ×2 (14:26→21:00)
[2022-11-24] MEDS: HumaLOG 300 UNITS/3 ML VIAL SC PRN (17:52)
[2022-11-24] MEDS: Topiramate 25 MG TAB PO SCH (20:59)
[2022-11-25] MEDS: HYDROcodone/Acetaminophen 5/325 mg Tablet PO PRN (00:37)
[2022-11-25] MEDS: Ipratropium/Albuterol 3 ML NEB NEB SCH ×4 (00:43→18:25)
[2022-11-25] MEDS: DOBUTamine 500 mg/250 ml 250 ML IVPB SCH ×2 (04:15→15:51)
[2022-11-25 04:58] LABS: #Eosinphils 0.1 thou/uL (0.0-0.7); #Monocytes 0.4 thou/uL (0.11-0.59); %Basophils 0.2 % (0.0-1.0); %Eosinophils 2.4 % (0.0-10.0); %Lymphocytes 10.2 % (21.0-51.0); %Monocytes 6.9 % (0.0-10.0); %Neutrophils 78.9 % (42.0-75.0); Mean Corpuscular HGB CONC 33.1 g/dL (32.0-36.0); Mean Corpuscular Hemoglobin 25.6 pg (27.0-31.0); Mean Corpuscular Volume 77.3 fl (78.0-98.0); Mean Platelet Volume 11.2 fL (7.4-10.4); RBC Distribution Width 19.2 % (11.5-14.5); Red Blood Cell (RBC) Count 3.13 mill/uL (4.20-5.40); White Blood Cell (WBC) Count 5.1 10x3/uL (4.8-10.8)
[2022-11-25 05:06] LABS: Platelet Count 79 10x3/uL (130-400)
[2022-11-25 05:22] LABS: Albumin 4.2 g/dL (3.5-5.0); Anion Gap 17 mmol/L (10-20); BUN (Urea Nitrogen) 71 mg/dL (9.8-20.1); BUN/Creatinine Ratio 13.92; Calc. Creatinine Clearance 31 mL/min (70-130); Carbon Dioxide 24 mmol/L (22-29); Chloride 84 mmol/L (98-107); Estimated GFR 10; Glucose 168 mg/dL (70-105); Phosphorus 6.2 mg/dL (2.3-4.7); Potassium 3.2 mmol/L (3.5-5.1); Sodium 122 mmol/L (136-145)
[2022-11-25] MEDS: Furosemide 40 MG/4 ML VIAL SLOW IVP SCH ×3 (05:49→21:24)
[2022-11-25] MEDS: HumaLOG 300 UNITS/3 ML VIAL SC PRN ×2 (06:00→11:30)
[2022-11-25] MEDS ORDERED: Potassium Chloride 20 MEQ TAB PO SCH (08:00)
[2022-11-25] MEDS: hydrALAZINE 25 MG TAB PO SCH ×3 (09:26→21:24)
[2022-11-25] MEDS: Polyethylene Glycol 3350 17 GM Packet PO SCH (09:26)
[2022-11-25] MEDS: Sertraline 25 MG TAB PO SCH (09:27)
[2022-11-25] MEDS: Sodium Bicarbonate Tab 325 MG TAB PO SCH ×3 (09:27→21:23)
[2022-11-25] MEDS: Benzonatate 100 MG CAP PO SCH ×3 (09:28→21:23)
[2022-11-25] MEDS: Ferrous Sulfate 325 MG TAB PO SCH ×2 (09:28→17:35)
[2022-11-25] MEDS: guaiFENesin ER 600 MG TAB PO SCH ×2 (09:28→21:23)
[2022-11-25] MEDS: Carvedilol 25 MG TAB PO SCH ×2 (09:28→21:24)
[2022-11-25] MEDS: Sevelamer Carbonate 800 MG TAB PO SCH ×3 (09:28→17:35)
[2022-11-25] MEDS: Aspirin 81 mg Enteric Coated Tablet PO SCH (09:28)
[2022-11-25 10:51] LABS: ALT (SGPT) 323 U/L (8-55); AST (SGOT) 55 U/L (5-34); Albumin 4.3 g/dL (3.5-5.0); Alkaline Phosphatase 65 U/L (40-110); Bilirubin, Direct 0.5 mg/dL (0.1-0.3); Bilirubin, Total 0.9 mg/dL (0.2-1.2); Protein, Total 6.4 g/dL (6.0-8.3)
[2022-11-25] MEDS: Topiramate 25 MG TAB PO SCH (21:24)
[2022-11-26] MEDS: Ipratropium/Albuterol 3 ML NEB NEB SCH ×4 (00:32→18:25)
[2022-11-26] MEDS: HYDROcodone/Acetaminophen 5/325 mg Tablet PO PRN ×2 (01:16→22:33)
[2022-11-26] MEDS: DOBUTamine 500 mg/250 ml 250 ML IVPB SCH ×2 (03:25→16:41)
[2022-11-26] MEDS: Furosemide 40 MG/4 ML VIAL SLOW IVP SCH (06:19)
[2022-11-26] MEDS: HumaLOG 300 UNITS/3 ML VIAL SC PRN (06:20)
[2022-11-26 06:24] LABS: #Eosinphils 0.1 thou/uL (0.0-0.7); #Monocytes 0.3 thou/uL (0.11-0.59); #Neutrophils 3.4 thou/uL (1.40-6.50); %Basophils 0.2 % (0.0-1.0); %Eosinophils 2.6 % (0.0-10.0); %Lymphocytes 10.7 % (21.0-51.0); %Neutrophils 79.6 % (42.0-75.0); Hemoglobin 7.9 g/dL (12.0-16.0); Mean Corpuscular HGB CONC 32.2 g/dL (32.0-36.0); Mean Corpuscular Hemoglobin 25.5 pg (27.0-31.0); Mean Platelet Volume 11.5 fL (7.4-10.4); RBC Distribution Width 19.6 % (11.5-14.5); White Blood Cell (WBC) Count 4.3 10x3/uL (4.8-10.8)
[2022-11-26 06:28] LABS: Platelet Count 72 10x3/uL (130-400)
[2022-11-26 06:47] LABS: Anion Gap 18 mmol/L (10-20); BUN (Urea Nitrogen) 72 mg/dL (9.8-20.1); Calc. Creatinine Clearance 30 mL/min (70-130); Carbon Dioxide 25 mmol/L (22-29); Chloride 86 mmol/L (98-107); Estimated GFR 9; Glucose 185 mg/dL (70-105); Potassium 3.5 mmol/L (3.5-5.1); Sodium 125 mmol/L (136-145)
[2022-11-26] MEDS: Sevelamer Carbonate 800 MG TAB PO SCH ×3 (08:43→19:31)
[2022-11-26] MEDS: Ferrous Sulfate 325 MG TAB PO SCH ×2 (08:43→16:30)
[2022-11-26] MEDS: Aspirin 81 mg Enteric Coated Tablet PO SCH (09:13)
[2022-11-26] MEDS: hydrALAZINE 25 MG TAB PO SCH ×3 (09:13→22:04)
[2022-11-26] MEDS: Benzonatate 100 MG CAP PO SCH ×3 (09:13→22:05)
[2022-11-26] MEDS: guaiFENesin ER 600 MG TAB PO SCH ×2 (09:13→22:05)
[2022-11-26] MEDS: Sertraline 25 MG TAB PO SCH (09:14)
[2022-11-26] MEDS: Sodium Bicarbonate Tab 325 MG TAB PO SCH ×3 (09:14→22:04)
[2022-11-26] MEDS: Carvedilol 25 MG TAB PO SCH ×2 (09:14→22:05)
[2022-11-26] MEDS: Polyethylene Glycol 3350 17 GM Packet PO SCH (09:15)
[2022-11-26 12:38] LABS: Troponin I 0.034 ng/mL (< 0.028)
[2022-11-26] MEDS: Furosemide 100 MG/10 ML VIAL SLOW IVP SCH (16:30)
[2022-11-26] MEDS: Topiramate 25 MG TAB PO SCH (22:05)
[2022-11-26 22:49] LABS: HBSAB Concentration Less than 8.00 mIU/mL; HBSAg Index 0.14 S/CO (0-0.99); Hep B Core Total Ab Non-Reactive (NonReactive); Hep B Core Total Index 0.09 S/CO (0-0.79); Hep B Surf AB Non-Reactive (NonReactive); Hep B Surf Ag Non-Reactive S/CO (NonReactive); Hep C IgG Ab Non-Reactive S/CO (NonReactive); Hep C Index 0.06 S/CO (0-0.79)
[2022-11-27] MEDS: Ipratropium/Albuterol 3 ML NEB NEB SCH ×3 (01:04→13:03)
[2022-11-27] MEDS: DOBUTamine 500 mg/250 ml 250 ML IVPB SCH ×2 (03:46→15:34)
[2022-11-27] MEDS: Furosemide 100 MG/10 ML VIAL SLOW IVP SCH ×2 (05:18→14:32)
[2022-11-27] MEDS: HumaLOG 300 UNITS/3 ML VIAL SC PRN (05:23)
[2022-11-27 05:58] LABS: #Eosinphils 0.1 thou/uL (0.0-0.7); #Monocytes 0.3 thou/uL (0.11-0.59); %Basophils 0.3 % (0.0-1.0); %Eosinophils 3.3 % (0.0-10.0); %Lymphocytes 13.3 % (21.0-51.0); %Monocytes 8.3 % (0.0-10.0); Hemoglobin 6.7 g/dL (12.0-16.0); Mean Corpuscular HGB CONC 31.2 g/dL (32.0-36.0); Mean Corpuscular Hemoglobin 25.3 pg (27.0-31.0); Mean Corpuscular Volume 81.1 fl (78.0-98.0); Mean Platelet Volume 11.3 fL (7.4-10.4); RBC Distribution Width 20.2 % (11.5-14.5); Red Blood Cell (RBC) Count 2.65 mill/uL (4.20-5.40)
[2022-11-27 06:02] LABS: Platelet Count 62 10x3/uL (130-400)
[2022-11-27 06:24] LABS: Anion Gap 14 mmol/L (10-20); BUN (Urea Nitrogen) 63 mg/dL (9.8-20.1); CK (CPK) 205 U/L (29-168); Calc. Creatinine Clearance 31 mL/min (70-130); Calcium 8.7 mg/dL (7.8-10.44); Carbon Dioxide 27 mmol/L (22-29); Chloride 91 mmol/L (98-107); Estimated GFR 10; Glucose 200 mg/dL (70-105); Phosphorus 5.4 mg/dL (2.3-4.7); Potassium 3.3 mmol/L (3.5-5.1); Sodium 129 mmol/L (136-145)
[2022-11-27] MEDS: Carvedilol 25 MG TAB PO SCH ×2 (08:16→21:36)
[2022-11-27] MEDS: Benzonatate 100 MG CAP PO SCH ×3 (08:16→21:36)
[2022-11-27] MEDS: Sevelamer Carbonate 800 MG TAB PO SCH ×3 (08:16→18:34)
[2022-11-27] MEDS: Ferrous Sulfate 325 MG TAB PO SCH ×2 (08:16→18:34)
[2022-11-27] MEDS: Aspirin 81 mg Enteric Coated Tablet PO SCH (08:16)
[2022-11-27] MEDS: EPOETIN ALFA-EPBX (ESRD) 10,000 UNITS/ML VIAL SC SCH (08:17)
[2022-11-27] MEDS: Polyethylene Glycol 3350 17 GM Packet PO SCH (08:18)
[2022-11-27] MEDS: hydrALAZINE 25 MG TAB PO SCH ×3 (08:18→21:35)
[2022-11-27] MEDS: guaiFENesin ER 600 MG TAB PO SCH ×2 (08:18→21:36)
[2022-11-27] MEDS: Sodium Bicarbonate Tab 325 MG TAB PO SCH ×3 (08:19→21:35)
[2022-11-27] MEDS: Sertraline 25 MG TAB PO SCH (08:19)
[2022-11-27] MEDS ORDERED: Potassium Chloride 20 MEQ TAB PO SCH (09:45)
[2022-11-27 11:34] LABS: Hemoglobin 6.7 g/dL (12.0-16.0)
[2022-11-27] MEDS ORDERED: Heparin 10,000 UNITS/ 10 ML VIAL ONE (12:21)
[2022-11-27] MEDS ORDERED: Ipratropium/Albuterol 3 ML NEB NEB PRN (13:17)
[2022-11-27 15:14] LABS: Phosphorus 5.4 mg/dL (2.3-4.7)
[2022-11-27] MEDS: HYDROcodone/Acetaminophen 5/325 mg Tablet PO PRN (21:34)
[2022-11-27] MEDS: Topiramate 25 MG TAB PO SCH (21:57)
[2022-11-28] MEDS: DOBUTamine 500 mg/250 ml 250 ML IVPB SCH (01:18)
[2022-11-28] MEDS: HYDROcodone/Acetaminophen 5/325 mg Tablet PO PRN (04:00)
[2022-11-28 04:56] LABS: #Eosinphils 0.1 thou/uL (0.0-0.7); #Monocytes 0.3 thou/uL (0.11-0.59); #Neutrophils 2.8 thou/uL (1.40-6.50); %Basophils 0.5 % (0.0-1.0); %Eosinophils 3.6 % (0.0-10.0); %Lymphocytes 15.6 % (21.0-51.0); %Monocytes 6.8 % (0.0-10.0); %Neutrophils 72.7 % (42.0-75.0); Hemoglobin 6.1 g/dL (12.0-16.0); Mean Corpuscular HGB CONC 31.8 g/dL (32.0-36.0); Mean Corpuscular Hemoglobin 26.4 pg (27.0-31.0); Mean Corpuscular Volume 83.1 fl (78.0-98.0); Mean Platelet Volume 11.5 fL (7.4-10.4); RBC Distribution Width 20.1 % (11.5-14.5); Red Blood Cell (RBC) Count 2.31 mill/uL (4.20-5.40); White Blood Cell (WBC) Count 3.8 10x3/uL (4.8-10.8)
[2022-11-28 04:58] LABS: Platelet Count 53 10x3/uL (130-400)
[2022-11-28 05:20] LABS: Anion Gap 15 mmol/L (10-20); BUN (Urea Nitrogen) 45 mg/dL (9.8-20.1); Calc. Creatinine Clearance 38 mL/min (70-130); Calcium 8.5 mg/dL (7.8-10.44); Carbon Dioxide 20 mmol/L (22-29); Chloride 100 mmol/L (98-107); Estimated GFR 13; Glucose 197 mg/dL (70-105); Potassium 4.1 mmol/L (3.5-5.1); Sodium 131 mmol/L (136-145)
[2022-11-28] MEDS: Furosemide 100 MG/10 ML VIAL SLOW IVP SCH (06:13)
[2022-11-28] MEDS: HumaLOG 300 UNITS/3 ML VIAL SC PRN ×3 (06:13→22:40)
[2022-11-28] MEDS ORDERED: DOBUTamine 500 mg/250 ml 250 ML IVPB SCH (06:52)
[2022-11-28] MEDS: Sertraline 25 MG TAB PO SCH (12:06)
[2022-11-28] MEDS: Benzonatate 100 MG CAP PO SCH ×3 (12:07→20:19)
[2022-11-28] MEDS: Ferrous Sulfate 325 MG TAB PO SCH ×2 (12:07→17:18)
[2022-11-28] MEDS: hydrALAZINE 25 MG TAB PO SCH ×3 (12:07→20:19)
[2022-11-28] MEDS: Sodium Bicarbonate Tab 325 MG TAB PO SCH ×3 (12:08→20:18)
[2022-11-28] MEDS: Carvedilol 25 MG TAB PO SCH ×2 (12:08→20:19)
[2022-11-28] MEDS: Aspirin 81 mg Enteric Coated Tablet PO SCH (12:09)
[2022-11-28] MEDS: guaiFENesin ER 600 MG TAB PO SCH ×2 (12:09→20:19)
[2022-11-28] MEDS: Sevelamer Carbonate 800 MG TAB PO SCH ×3 (12:09→17:20)
[2022-11-28] MEDS: Polyethylene Glycol 3350 17 GM Packet PO SCH (12:10)
[2022-11-28 12:55] LABS: Glucose 146 mg/dL (70-105)
[2022-11-28 17:48] LABS: Glucose 203 mg/dL (70-105)
[2022-11-28] MEDS: Topiramate 25 MG TAB PO SCH (20:20)
[2022-11-28 20:42] LABS: Hemoglobin 7.1 g/dL (12.0-16.0)
[2022-11-28 20:49] LABS: Platelet Count 52 10x3/uL (130-400)
[2022-11-28 21:38] LABS: Glucose 243 mg/dL (70-105)
[2022-11-29] MEDS: HYDROcodone/Acetaminophen 5/325 mg Tablet PO PRN ×3 (00:23→20:45)
[2022-11-29 05:15] LABS: #Eosinphils 0.2 thou/uL (0.0-0.7); #Monocytes 0.4 thou/uL (0.11-0.59); #Neutrophils 3.5 thou/uL (1.40-6.50); %Basophils 0.6 % (0.0-1.0); %Lymphocytes 14.5 % (21.0-51.0); %Monocytes 7.4 % (0.0-10.0); %Neutrophils 72.9 % (42.0-75.0); Hemoglobin 6.2 g/dL (12.0-16.0); Mean Corpuscular HGB CONC 31.2 g/dL (32.0-36.0); Mean Corpuscular Hemoglobin 27.1 pg (27.0-31.0); Mean Platelet Volume 11.8 fL (7.4-10.4); RBC Distribution Width 19.3 % (11.5-14.5); Red Blood Cell (RBC) Count 2.29 mill/uL (4.20-5.40); White Blood Cell (WBC) Count 4.8 10x3/uL (4.8-10.8)
[2022-11-29 05:19] LABS: Platelet Count 53 10x3/uL (130-400)
[2022-11-29 05:20] LABS: Mean Corpuscular Volume 86.9 fl (78.0-98.0)
[2022-11-29 05:41] LABS: Anion Gap 13 mmol/L (10-20); BUN (Urea Nitrogen) 32 mg/dL (9.8-20.1); Calc. Creatinine Clearance 47 mL/min (70-130); Calcium 8.8 mg/dL (7.8-10.44); Carbon Dioxide 21 mmol/L (22-29); Chloride 103 mmol/L (98-107); Estimated GFR 16; Glucose 212 mg/dL (70-105); Potassium 3.7 mmol/L (3.5-5.1); Sodium 133 mmol/L (136-145)
[2022-11-29] MEDS: HumaLOG 300 UNITS/3 ML VIAL SC PRN ×4 (06:01→20:54)
[2022-11-29] MEDS: Polyethylene Glycol 3350 17 GM Packet PO SCH (07:52)
[2022-11-29] MEDS: Ferrous Sulfate 325 MG TAB PO SCH ×2 (07:52→17:48)
[2022-11-29] MEDS: Sertraline 25 MG TAB PO SCH (07:52)
[2022-11-29] MEDS: guaiFENesin ER 600 MG TAB PO SCH ×2 (07:53→20:45)
[2022-11-29] MEDS: hydrALAZINE 25 MG TAB PO SCH ×3 (07:53→20:45)
[2022-11-29] MEDS: Sodium Bicarbonate Tab 325 MG TAB PO SCH ×3 (07:53→20:44)
[2022-11-29] MEDS: Benzonatate 100 MG CAP PO SCH ×3 (07:54→20:45)
[2022-11-29] MEDS: Sevelamer Carbonate 800 MG TAB PO SCH ×3 (07:54→17:48)
[2022-11-29] MEDS: Carvedilol 25 MG TAB PO SCH ×2 (07:54→20:45)
[2022-11-29 11:22] LABS: INR-International Normal Ratio 1.2; Prothrombin Time 15.6 sec (12.0-14.7)
[2022-11-29 11:23] LABS: D-Dimer Test 0.81 *mcg/mL (0.27-0.43); PTT 41.1 sec (22.9-36.1); Platelet Count 52 10x3/uL (130-400)
[2022-11-29 11:26] LABS: Bilirubin, Total 0.9 mg/dL (0.2-1.2); Glucose 263 mg/dL (70-105)
[2022-11-29 11:27] LABS: Fibrinogen 131 mg/dL (253-463)
[2022-11-29] MEDS: Torsemide 100 MG TAB PO SCH (11:33)
[2022-11-29] MEDS: Aspirin 81 mg Enteric Coated Tablet PO SCH (11:33)
[2022-11-29] MEDS: EPOETIN ALFA-EPBX (ESRD) 10,000 UNITS/ML VIAL SC SCH (11:33)
[2022-11-29 17:13] LABS: Glucose 256 mg/dL (70-105)
[2022-11-29] MEDS: Topiramate 25 MG TAB PO SCH (20:45)
[2022-11-30] MEDS: HYDROcodone/Acetaminophen 5/325 mg Tablet PO PRN ×2 (00:14→05:16)
[2022-11-30 04:43] LABS: #Eosinphils 0.3 thou/uL (0.0-0.7); #Monocytes 0.5 thou/uL (0.11-0.59); #Neutrophils 3.7 thou/uL (1.40-6.50); %Basophils 0.7 % (0.0-1.0); %Monocytes 8.4 % (0.0-10.0); Mean Corpuscular HGB CONC 31.4 g/dL (32.0-36.0); Mean Corpuscular Hemoglobin 27.7 pg (27.0-31.0); Mean Corpuscular Volume 88.1 fl (78.0-98.0); RBC Distribution Width 18.5 % (11.5-14.5); Red Blood Cell (RBC) Count 2.53 mill/uL (4.20-5.40); White Blood Cell (WBC) Count 5.8 10x3/uL (4.8-10.8)
[2022-11-30 04:45] LABS: Platelet Count 71 10x3/uL (130-400)
[2022-11-30 05:07] LABS: Anion Gap 13 mmol/L (10-20); BUN (Urea Nitrogen) 36 mg/dL (9.8-20.1); CK (CPK) 246 U/L (29-168); Calc. Creatinine Clearance 41 mL/min (70-130); Calcium 9.5 mg/dL (7.8-10.44); Carbon Dioxide 25 mmol/L (22-29); Chloride 102 mmol/L (98-107); Estimated GFR 15; Glucose 168 mg/dL (70-105); Potassium 4.2 mmol/L (3.5-5.1); Sodium 136 mmol/L (136-145)
[2022-11-30] MEDS: HumaLOG 300 UNITS/3 ML VIAL SC PRN ×2 (05:19→20:55)
[2022-11-30] MEDS ORDERED: Heparin 10,000 UNITS/ 10 ML VIAL ONE (08:20)
[2022-11-30] MEDS: guaiFENesin ER 600 MG TAB PO SCH ×2 (08:36→20:54)
[2022-11-30] MEDS: Ferrous Sulfate 325 MG TAB PO SCH ×2 (08:36→16:15)
[2022-11-30] MEDS: Polyethylene Glycol 3350 17 GM Packet PO SCH (08:36)
[2022-11-30] MEDS: Benzonatate 100 MG CAP PO SCH ×3 (08:37→20:54)
[2022-11-30] MEDS: Sodium Bicarbonate Tab 325 MG TAB PO SCH (08:37)
[2022-11-30] MEDS: hydrALAZINE 25 MG TAB PO SCH ×3 (08:37→20:54)
[2022-11-30] MEDS: Sertraline 25 MG TAB PO SCH (08:38)
[2022-11-30] MEDS: Sevelamer Carbonate 800 MG TAB PO SCH ×3 (08:38→16:15)
[2022-11-30] MEDS: Aspirin 81 mg Enteric Coated Tablet PO SCH (08:38)
[2022-11-30] MEDS: Carvedilol 25 MG TAB PO SCH ×2 (08:39→20:54)
[2022-11-30] MEDS ORDERED: EPOETIN ALFA-EPBX (ESRD) 10,000 UNITS/ML VIAL SC SCH (09:00)
[2022-11-30] MEDS: Torsemide 100 MG TAB PO SCH (12:17)
[2022-11-30] MEDS: Topiramate 25 MG TAB PO SCH (20:54)
[2022-12-01] MEDS: HYDROcodone/Acetaminophen 5/325 mg Tablet PO PRN ×2 (00:44→09:31)
[2022-12-01 04:48] LABS: #Basophils 0.1 thou/uL (0.0-0.2); #Eosinphils 0.3 thou/uL (0.0-0.7); #Monocytes 0.3 thou/uL (0.11-0.59); #Neutrophils 3.8 thou/uL (1.40-6.50); %Basophils 1.1 % (0.0-1.0); %Eosinophils 5.2 % (0.0-10.0); %Monocytes 6.3 % (0.0-10.0); %Neutrophils 70.5 % (42.0-75.0); Hemoglobin 7.3 g/dL (12.0-16.0); Mean Corpuscular HGB CONC 32.6 g/dL (32.0-36.0); Mean Corpuscular Hemoglobin 29.3 pg (27.0-31.0); Mean Platelet Volume 11.1 fL (7.4-10.4); RBC Distribution Width 18.4 % (11.5-14.5); Red Blood Cell (RBC) Count 2.49 mill/uL (4.20-5.40); White Blood Cell (WBC) Count 5.4 10x3/uL (4.8-10.8)
[2022-12-01 05:08] LABS: Anion Gap 12 mmol/L (10-20); BUN (Urea Nitrogen) 23 mg/dL (9.8-20.1); Calc. Creatinine Clearance 52 mL/min (70-130); Calcium 9.3 mg/dL (7.8-10.44); Carbon Dioxide 27 mmol/L (22-29); Chloride 103 mmol/L (98-107); Estimated GFR 20; Glucose 209 mg/dL (70-105); Potassium 3.8 mmol/L (3.5-5.1); Sodium 138 mmol/L (136-145)
[2022-12-01 05:26] LABS: Platelet Count 68 10x3/uL (130-400)
[2022-12-01] MEDS: Ferrous Sulfate 325 MG TAB PO SCH ×2 (09:14→18:17)
[2022-12-01] MEDS: Benzonatate 100 MG CAP PO SCH ×3 (09:14→21:12)
[2022-12-01] MEDS: Aspirin 81 mg Enteric Coated Tablet PO SCH (09:14)
[2022-12-01] MEDS: Sevelamer Carbonate 800 MG TAB PO SCH ×3 (09:14→18:17)
[2022-12-01] MEDS: Carvedilol 25 MG TAB PO SCH ×2 (09:14→21:11)
[2022-12-01] MEDS: guaiFENesin ER 600 MG TAB PO SCH ×2 (09:14→21:12)
[2022-12-01] MEDS: Polyethylene Glycol 3350 17 GM Packet PO SCH (09:16)
[2022-12-01] MEDS: Sertraline 25 MG TAB PO SCH (09:27)
[2022-12-01] MEDS: hydrALAZINE 25 MG TAB PO SCH ×3 (09:27→21:11)
[2022-12-01] MEDS: EPOETIN ALFA-EPBX (ESRD) 10,000 UNITS/ML VIAL SC SCH (10:13)
[2022-12-01] MEDS: Torsemide 100 MG TAB PO SCH (10:13)
[2022-12-01] MEDS ORDERED: Iron, Sodium Ferric Gluconate 250 MG in Sodium Chloride 0.9% 250 ML 250 ML IVPB SCH (12:30)
[2022-12-01 14:55] LABS: Manual Diff?? YES
[2022-12-01 15:48] LABS: Anisocytosis SLIGHT = 6-15 cells HPF (0-5); Burr Cells SLIGHT = 2-5 cells HPF (0-1); CellaVision Operator ID LAB.KB; Eosinophils 4 % (0-10); Lymphocytes 16 % (21-51); Macrocytosis SLIGHT = 6-15 cells HPF (0-5); Monocytes 1 % (0-10); Neutrophil 79 % (42-75); Nucleated RBC (Manual Ct) 1 % (0); Ovalocytes SLIGHT = 2-5 cells HPF (0-1); Platelet Adequacy Comment Platelets Decreased; Polychromasia SLIGHT = 2-3 cells HPF (0-2); Total Cell Count 100
[2022-12-01 19:44] LABS: Platelet Count 78 10x3/uL (130-400)
[2022-12-01 19:55] LABS: Fibrinogen 163 mg/dL (253-463); INR-International Normal Ratio 1.2; PTT 42.2 sec (22.9-36.1); Prothrombin Time 15.4 sec (12.0-14.7)
[2022-12-01 19:56] LABS: D-Dimer Test 1.93 *mcg/mL (0.27-0.43)
[2022-12-01] MEDS: Topiramate 25 MG TAB PO SCH (21:12)
[2022-12-01] MEDS: HumaLOG 300 UNITS/3 ML VIAL SC PRN (21:33)
[2022-12-02 04:20] LABS: #Basophils 0.1 thou/uL (0.0-0.2); #Eosinphils 0.2 thou/uL (0.0-0.7); #Monocytes 0.4 thou/uL (0.11-0.59); #Neutrophils 4.5 thou/uL (1.40-6.50); %Basophils 0.8 % (0.0-1.0); %Eosinophils 3.9 % (0.0-10.0); %Lymphocytes 12.9 % (21.0-51.0); %Monocytes 5.9 % (0.0-10.0); %Neutrophils 75.5 % (42.0-75.0); Hemoglobin 7.5 g/dL (12.0-16.0); Mean Corpuscular HGB CONC 30.5 g/dL (32.0-36.0); Mean Corpuscular Hemoglobin 27.7 pg (27.0-31.0); Mean Corpuscular Volume 90.8 fl (78.0-98.0); Mean Platelet Volume 11.4 fL (7.4-10.4); RBC Distribution Width 19.9 % (11.5-14.5); Red Blood Cell (RBC) Count 2.71 mill/uL (4.20-5.40)
[2022-12-02 04:23] LABS: Platelet Count 81 10x3/uL (130-400)
[2022-12-02 04:41] LABS: Anion Gap 11 mmol/L (10-20); BUN (Urea Nitrogen) 17 mg/dL (9.8-20.1); Calc. Creatinine Clearance 58 mL/min (70-130); Calcium 9.6 mg/dL (7.8-10.44); Carbon Dioxide 28 mmol/L (22-29); Chloride 103 mmol/L (98-107); Estimated GFR 23; Glucose 245 mg/dL (70-105); Potassium 3.9 mmol/L (3.5-5.1); Sodium 138 mmol/L (136-145)
[2022-12-02] MEDS: HumaLOG 300 UNITS/3 ML VIAL SC PRN (05:47)
[2022-12-02] MEDS: Ferrous Sulfate 325 MG TAB PO SCH ×2 (09:59→20:40)
[2022-12-02] MEDS: HYDROcodone/Acetaminophen 5/325 mg Tablet PO PRN ×2 (10:00→12:47)
[2022-12-02] MEDS: Carvedilol 25 MG TAB PO SCH ×2 (10:00→20:41)
[2022-12-02] MEDS: Sevelamer Carbonate 800 MG TAB PO SCH ×3 (10:00→20:40)
[2022-12-02] MEDS: Aspirin 81 mg Enteric Coated Tablet PO SCH (10:00)
[2022-12-02] MEDS: Sertraline 25 MG TAB PO SCH (10:01)
[2022-12-02] MEDS: Polyethylene Glycol 3350 17 GM Packet PO SCH (10:03)
[2022-12-02] MEDS: hydrALAZINE 25 MG TAB PO SCH ×3 (10:03→20:41)
[2022-12-02] MEDS: guaiFENesin ER 600 MG TAB PO SCH ×2 (10:04→20:41)
[2022-12-02] MEDS: Benzonatate 100 MG CAP PO SCH ×3 (10:10→20:40)
[2022-12-02] MEDS: Torsemide 100 MG TAB PO SCH (12:47)
[2022-12-02] MEDS ORDERED: CEFAZOLIN 2 GM in Sodium Chloride 0.9% 100 ML IVPB SCH (13:30)
[2022-12-02] MEDS ORDERED: Tuberculin PPD 0.1 ML VIAL I-DERMAL SCH (16:45)
[2022-12-02] MEDS: Topiramate 25 MG TAB PO SCH (20:39)
[2022-12-03] MEDS: HumaLOG 300 UNITS/3 ML VIAL SC PRN ×3 (05:45→21:17)
[2022-12-03 05:47] LABS: #Basophils 0.1 thou/uL (0.0-0.2); #Eosinphils 0.3 thou/uL (0.0-0.7); #Monocytes 0.4 thou/uL (0.11-0.59); #Neutrophils 3.4 thou/uL (1.40-6.50); %Eosinophils 5.4 % (0.0-10.0); %Lymphocytes 16.8 % (21.0-51.0); %Monocytes 7.2 % (0.0-10.0); %Neutrophils 68.6 % (42.0-75.0); Hemoglobin 7.4 g/dL (12.0-16.0); Mean Corpuscular Hemoglobin 28.2 pg (27.0-31.0); Mean Corpuscular Volume 91.2 fl (78.0-98.0); Mean Platelet Volume 10.6 fL (7.4-10.4); RBC Distribution Width 20.8 % (11.5-14.5); Red Blood Cell (RBC) Count 2.62 mill/uL (4.20-5.40)
[2022-12-03] MEDS: HYDROcodone/Acetaminophen 5/325 mg Tablet PO PRN ×2 (05:51→15:15)
[2022-12-03 06:01] LABS: Platelet Count 89 10x3/uL (130-400)
[2022-12-03 06:07] LABS: Anion Gap 13 mmol/L (10-20); BUN (Urea Nitrogen) 25 mg/dL (9.8-20.1); Calc. Creatinine Clearance 42 mL/min (70-130); Calcium 9.6 mg/dL (7.8-10.44); Carbon Dioxide 24 mmol/L (22-29); Chloride 105 mmol/L (98-107); Estimated GFR 16; Glucose 261 mg/dL (70-105); Potassium 3.8 mmol/L (3.5-5.1); Sodium 138 mmol/L (136-145)
[2022-12-03] MEDS ORDERED: CEFAZOLIN 2 GM VIAL ONE (08:37)
[2022-12-03] MEDS ORDERED: Sodium Chloride 0.9% 100 ML ONE (08:37)
[2022-12-03] MEDS ORDERED: fentaNYL PF 100 MCG/2 ML SYRINGE ONE (09:05)
[2022-12-03] MEDS ORDERED: Midazolam HCl 2 mg/2 ml Vial ONE ×2 (09:08→09:21)
[2022-12-03] MEDS ORDERED: Ketamine 50 MG/ML (10ML VIAL) ONE (09:08)
[2022-12-03] MEDS ORDERED: Ondansetron HCl/PF 4 MG/2 ML Vial IVP PRN (09:54)
[2022-12-03] MEDS ORDERED: Promethazine HCl 25 MG/ML VIAL IM PRN (09:54)
[2022-12-03] MEDS: guaiFENesin ER 600 MG TAB PO SCH ×2 (11:07→20:38)
[2022-12-03] MEDS: Benzonatate 100 MG CAP PO SCH ×3 (11:07→20:38)
[2022-12-03] MEDS: hydrALAZINE 25 MG TAB PO SCH ×3 (11:10→20:39)
[2022-12-03] MEDS: Carvedilol 25 MG TAB PO SCH ×2 (11:10→20:38)
[2022-12-03] MEDS: Sertraline 25 MG TAB PO SCH (11:11)
[2022-12-03] MEDS: Aspirin 81 mg Enteric Coated Tablet PO SCH (11:11)
[2022-12-03] MEDS: Polyethylene Glycol 3350 17 GM Packet PO SCH (11:12)
[2022-12-03] MEDS: Sevelamer Carbonate 800 MG TAB PO SCH ×3 (11:14→17:43)
[2022-12-03] MEDS: Ferrous Sulfate 325 MG TAB PO SCH ×2 (11:15→17:43)
[2022-12-03] MEDS: Torsemide 100 MG TAB PO SCH (11:31)
[2022-12-03] MEDS ORDERED: Glycopyrrolate 0.2 MG/ML 5 ML SYRINGE ONE (14:13)
[2022-12-03] MEDS ORDERED: Ondansetron PF 4 MG/2 ML Vial ONE (14:13)
[2022-12-03] MEDS ORDERED: CEFAZOLIN 2 GM in Sodium Chloride 0.9% 100 ML IVPB SCH (17:45)
[2022-12-03] MEDS: Topiramate 25 MG TAB PO SCH (20:38)
[2022-12-04] MEDS: HYDROcodone/Acetaminophen 5/325 mg Tablet PO PRN ×2 (00:24→16:32)
[2022-12-04 05:10] LABS: #Basophils 0.1 thou/uL (0.0-0.2); #Eosinphils 0.3 thou/uL (0.0-0.7); #Monocytes 0.5 thou/uL (0.11-0.59); #Neutrophils 3.7 thou/uL (1.40-6.50); %Basophils 1.1 % (0.0-1.0); %Eosinophils 5.2 % (0.0-10.0); %Monocytes 8.2 % (0.0-10.0); %Neutrophils 65.4 % (42.0-75.0); Hemoglobin 7.5 g/dL (12.0-16.0); Mean Corpuscular HGB CONC 31.8 g/dL (32.0-36.0); Mean Corpuscular Hemoglobin 29.8 pg (27.0-31.0); Mean Corpuscular Volume 93.7 fl (78.0-98.0); Mean Platelet Volume 11.4 fL (7.4-10.4); Platelet Count 92 10x3/uL (130-400); Red Blood Cell (RBC) Count 2.52 mill/uL (4.20-5.40); White Blood Cell (WBC) Count 5.6 10x3/uL (4.8-10.8)
[2022-12-04 05:31] LABS: Anion Gap 14 mmol/L (10-20); BUN (Urea Nitrogen) 36 mg/dL (9.8-20.1); Calc. Creatinine Clearance 38 mL/min (70-130); Calcium 9.5 mg/dL (7.8-10.44); Carbon Dioxide 24 mmol/L (22-29); Chloride 101 mmol/L (98-107); Estimated GFR 14; Glucose 192 mg/dL (70-105); Sodium 135 mmol/L (136-145)
[2022-12-04] MEDS: HumaLOG 300 UNITS/3 ML VIAL SC PRN ×3 (06:26→21:27)
[2022-12-04] MEDS: Ferrous Sulfate 325 MG TAB PO SCH ×2 (09:01→16:32)
[2022-12-04] MEDS: Benzonatate 100 MG CAP PO SCH ×3 (09:02→21:27)
[2022-12-04] MEDS: guaiFENesin ER 600 MG TAB PO SCH ×2 (09:02→21:26)
[2022-12-04] MEDS: Sevelamer Carbonate 800 MG TAB PO SCH ×3 (09:02→16:32)
[2022-12-04] MEDS: hydrALAZINE 25 MG TAB PO SCH ×3 (09:02→21:26)
[2022-12-04 09:54] VITALS: BMI 48.9
[2022-12-04] MEDS: Sertraline 25 MG TAB PO SCH (12:54)
[2022-12-04] MEDS: Aspirin 81 mg Enteric Coated Tablet PO SCH (12:55)
[2022-12-04] MEDS: Carvedilol 25 MG TAB PO SCH ×2 (12:55→21:26)
[2022-12-04] MEDS: EPOETIN ALFA-EPBX (ESRD) 10,000 UNITS/ML VIAL SC SCH (12:56)
[2022-12-04] MEDS: Polyethylene Glycol 3350 17 GM Packet PO SCH (12:56)
[2022-12-04] MEDS: Torsemide 100 MG TAB PO SCH (12:57)
[2022-12-04] MEDS: cefTRIAXone\\ROCEPHIN 2 GM in Sodium Chloride 0.9% 100 ML IVPB SCH (13:02)
[2022-12-04] MEDS ORDERED: READ PPD TEST SITE PO SCH (18:00)
[2022-12-04] MEDS: Topiramate 25 MG TAB PO SCH (21:27)
[2022-12-05] MEDS: HYDROcodone/Acetaminophen 5/325 mg Tablet PO PRN (03:53)
[2022-12-05 04:53] LABS: #Basophils 0.1 thou/uL (0.0-0.2); #Eosinphils 0.3 thou/uL (0.0-0.7); #Monocytes 0.4 thou/uL (0.11-0.59); #Neutrophils 4.4 thou/uL (1.40-6.50); %Basophils 0.8 % (0.0-1.0); %Eosinophils 5.1 % (0.0-10.0); %Lymphocytes 17.2 % (21.0-51.0); %Monocytes 6.4 % (0.0-10.0); %Neutrophils 69.4 % (42.0-75.0); Hemoglobin 8.1 g/dL (12.0-16.0); Mean Corpuscular Volume 93.5 fl (78.0-98.0); Mean Platelet Volume 10.8 fL (7.4-10.4); RBC Distribution Width 21.9 % (11.5-14.5); Red Blood Cell (RBC) Count 2.79 mill/uL (4.20-5.40); White Blood Cell (WBC) Count 6.3 10x3/uL (4.8-10.8)
[2022-12-05 05:13] LABS: Anion Gap 11 mmol/L (10-20); BUN (Urea Nitrogen) 27 mg/dL (9.8-20.1); Calc. Creatinine Clearance 43 mL/min (70-130); Calcium 8.5 mg/dL (7.8-10.44); Carbon Dioxide 28 mmol/L (22-29); Chloride 102 mmol/L (98-107); Estimated GFR 16; Glucose 318 mg/dL (70-105); Potassium 3.8 mmol/L (3.5-5.1); Sodium 137 mmol/L (136-145)
[2022-12-05 05:32] LABS: Platelet Count 99 10x3/uL (130-400)
[2022-12-05] MEDS: HumaLOG 300 UNITS/3 ML VIAL SC PRN ×2 (06:05→11:13)
[2022-12-05] MEDS: Polyethylene Glycol 3350 17 GM Packet PO SCH (07:59)
[2022-12-05] MEDS: Sertraline 25 MG TAB PO SCH (08:00)
[2022-12-05] MEDS: hydrALAZINE 25 MG TAB PO SCH (08:01)
[2022-12-05] MEDS: Carvedilol 25 MG TAB PO SCH (08:02)
[2022-12-05] MEDS: Sevelamer Carbonate 800 MG TAB PO SCH ×2 (08:02→11:12)
[2022-12-05] MEDS: Ferrous Sulfate 325 MG TAB PO SCH (08:02)
[2022-12-05] MEDS: Aspirin 81 mg Enteric Coated Tablet PO SCH (08:02)
[2022-12-05] MEDS: guaiFENesin ER 600 MG TAB PO SCH (08:02)
[2022-12-05] MEDS: Torsemide 100 MG TAB PO SCH (08:03)
[2022-12-05] MEDS: Benzonatate 100 MG CAP PO SCH (08:03)
[2022-12-05] MEDS: cefTRIAXone\\ROCEPHIN 2 GM in Sodium Chloride 0.9% 100 ML IVPB SCH (11:12)
[2022-12-05 11:28] VITALS: TEMP 98.2
[2022-12-05 13:00] VITALS: BP 181/80
== END 2022-12-05 14:00 | disposition home or self-care (01) | DRG 193 ==
LOC: ERS 21:21 → 2SW 11-13 00:19 → OBSVTOIN 11-13 12:37 → SURG A 11-15 18:35 → 2SW 11-21 18:48 → 2NO 11-27 17:27
PROVIDERS: ADMIT Internal Medicine; ATTEND Hospitalist
PROC: 30233J1 Transfusion of Nonautologous Serum Albumin into Peripheral Vein, Percutaneous Approach (ICD-10-PCS; 2022-11-20)
PROC: 06HY33Z Insertion of Infusion Device into Lower Vein, Percutaneous Approach (ICD-10-PCS; principal; 2022-11-26)
PROC: 5A1D70Z Performance of Urinary Filtration, Intermittent, Less than 6 Hours Per Day (ICD-10-PCS; 2022-11-26)
PROC: 30233N1 Transfusion of Nonautologous Red Blood Cells into Peripheral Vein, Percutaneous Approach (ICD-10-PCS; 2022-11-27)
PROC: 5A1D70Z Performance of Urinary Filtration, Intermittent, Less than 6 Hours Per Day (ICD-10-PCS; 2022-11-27)
PROC: 5A1D70Z Performance of Urinary Filtration, Intermittent, Less than 6 Hours Per Day (ICD-10-PCS; 2022-11-28)
PROC: 6A550Z2 Pheresis of Platelets, Single (ICD-10-PCS; 2022-11-29)
PROC: 5A1D70Z Performance of Urinary Filtration, Intermittent, Less than 6 Hours Per Day (ICD-10-PCS; 2022-11-30)
PROC: 5A1D70Z Performance of Urinary Filtration, Intermittent, Less than 6 Hours Per Day (ICD-10-PCS; 2022-12-01)
PROC: 5A1D70Z Performance of Urinary Filtration, Intermittent, Less than 6 Hours Per Day (ICD-10-PCS; 2022-12-02)
PROC: 0JH63XZ Insertion of Tunneled Vascular Access Device into Chest Subcutaneous Tissue and Fascia, Percutaneous Approach (ICD-10-PCS; 2022-12-03)
PROC: 02HV33Z Insertion of Infusion Device into Superior Vena Cava, Percutaneous Approach (ICD-10-PCS; 2022-12-03)
PROC: B5181ZA Fluoroscopy of Superior Vena Cava using Low Osmolar Contrast, Guidance (ICD-10-PCS; 2022-12-03)
PROC: 5A1D70Z Performance of Urinary Filtration, Intermittent, Less than 6 Hours Per Day (ICD-10-PCS; 2022-12-04)
DX: J18.9 Pneumonia, unspecified organism (principal); D65 Disseminated intravascular coagulation [defibrination syndrome]; I50.23 Acute on chronic systolic (congestive) heart failure; K85.90 Acute pancreatitis without necrosis or infection, unspecified; N18.6 End stage renal disease; E87.21 Acute metabolic acidosis; E87.1 Hypo-osmolality and hyponatremia; M62.82 Rhabdomyolysis; D62 Acute posthemorrhagic anemia; N17.9 Acute kidney failure, unspecified; I13.2 Hypertensive heart and chronic kidney disease with heart failure and with stage 5 chronic kidney disease, or end stage renal disease; Z68.42 Body mass index [BMI] 45.0-49.9, adult; E78.5 Hyperlipidemia, unspecified; I25.10 Atherosclerotic heart disease of native coronary artery without angina pectoris; D63.1 Anemia in chronic kidney disease; E11.22 Type 2 diabetes mellitus with diabetic chronic kidney disease; K21.9 Gastro-esophageal reflux disease without esophagitis; G43.909 Migraine, unspecified, not intractable, without status migrainosus; F41.9 Anxiety disorder, unspecified; E87.6 Hypokalemia; E88.09 Other disorders of plasma-protein metabolism, not elsewhere classified; E66.01 Morbid (severe) obesity due to excess calories; E11.65 Type 2 diabetes mellitus with hyperglycemia; I25.5 Ischemic cardiomyopathy; F32.A Depression, unspecified; E83.39 Other disorders of phosphorus metabolism; E87.5 Hyperkalemia; Z88.8 Allergy status to other drugs, medicaments and biological substances; Z79.899 Other long term (current) drug therapy; Z79.4 Long term (current) use of insulin; Z79.82 Long term (current) use of aspirin; Z95.810 Presence of automatic (implantable) cardiac defibrillator; Z95.5 Presence of coronary angioplasty implant and graft; Z82.49 Family history of ischemic heart disease and other diseases of the circulatory system; Z91.148 Patient's other noncompliance with medication regimen for other reason; Z20.822 Contact with and (suspected) exposure to COVID-19
CPT/HCPCS: 36415; 36416; 36430; 71045; 74018; 74176; 80048; 80053; 80061; 80069; 80202; 81001; 82040; 82043; 82140; 82247; 82306; 82550; 82553; 82570; 82728; 83036; 83540; 83550; 83605; 83615; 83690; 83735; 83880; 83930; 83935; 84100; 84145; 84156; 84300; 84484; 84540; 85025; 85049; 85300; 85362; 85379; 85384; 85610; 85730; 86580; 86704; 86803; 86850; 86900; 86901; 87040; 87070; 87077; 87081; 87149; 87186; 87205; 87389; 87449; 87899; 90935; 93005; 93010; 93926; 96365; 96367; 96372; 96375; 96376; A4217; C1751; C1752; C9113; G0257; G0378; J0456; J0696; J1250; J1642; J1644; J1650; J1815; J1940; J2250; J2270; J2405; J2916; J3370; J3490; J7050; J7120; J7131; J7620; P9016; P9035; P9047; Q5105

== ENCOUNTER 2022-12-09 12:14 | Emergency (ER) | payer OTHER ==
[2022-12-09] MEDS ORDERED: Morphine 4 MG/ML VIAL ONE (12:50)
[2022-12-09] MEDS ORDERED: Ondansetron PF 4 MG/2 ML Vial ONE (12:51)
[2022-12-09 13:06] LABS: #Basophils 0.1 thou/uL (0.0-0.2); #Eosinphils 0.4 thou/uL (0.0-0.7); #Monocytes 0.5 thou/uL (0.11-0.59); #Neutrophils 4.5 thou/uL (1.40-6.50); %Basophils 0.9 % (0.0-1.0); %Eosinophils 6.5 % (0.0-10.0); %Lymphocytes 16.4 % (21.0-51.0); %Monocytes 7.6 % (0.0-10.0); %Neutrophils 67.8 % (42.0-75.0); Hemoglobin 9.9 g/dL (12.0-16.0); Mean Corpuscular HGB CONC 31.5 g/dL (32.0-36.0); Mean Corpuscular Hemoglobin 29.7 pg (27.0-31.0); Mean Corpuscular Volume 94.3 fl (78.0-98.0); Mean Platelet Volume 11.2 fL (7.4-10.4); RBC Distribution Width 22.6 % (11.5-14.5); Red Blood Cell (RBC) Count 3.33 mill/uL (4.20-5.40); White Blood Cell (WBC) Count 6.6 10x3/uL (4.8-10.8)
[2022-12-09 13:13] LABS: Platelet Count 73 10x3/uL (130-400)
[2022-12-09 13:25] LABS: ALT (SGPT) 18 U/L (8-55); AST (SGOT) 23 U/L (5-34); Alkaline Phosphatase 70 U/L (40-110); Anion Gap 13 mmol/L (10-20); BUN (Urea Nitrogen) 24 mg/dL (9.8-20.1); Bilirubin, Total 2.1 mg/dL (0.2-1.2); Calc. Creatinine Clearance 0 mL/min (70-130); Calcium 9.6 mg/dL (7.8-10.44); Carbon Dioxide 28 mmol/L (22-29); Chloride 104 mmol/L (98-107); Estimated GFR 23; Globulin 2.1 g/dL (2.4-3.5); Glucose 121 mg/dL (70-105); Potassium 3.5 mmol/L (3.5-5.1); Protein, Total 6.1 g/dL (6.0-8.3); Sodium 141 mmol/L (136-145)
== END 2022-12-09 15:28 | disposition home or self-care (01) ==
LOC: ERS 12:14
DX: M79.81 Nontraumatic hematoma of soft tissue (principal); R23.3 Spontaneous ecchymoses; I13.0 Hypertensive heart and chronic kidney disease with heart failure and stage 1 through stage 4 chronic kidney disease, or unspecified chronic kidney disease; E11.22 Type 2 diabetes mellitus with diabetic chronic kidney disease; N18.30 Chronic kidney disease, stage 3 unspecified; I50.9 Heart failure, unspecified; K21.9 Gastro-esophageal reflux disease without esophagitis; E78.00 Pure hypercholesterolemia, unspecified; D64.9 Anemia, unspecified; I25.2 Old myocardial infarction; Z95.5 Presence of coronary angioplasty implant and graft; Z79.4 Long term (current) use of insulin; Z79.899 Other long term (current) drug therapy
CPT/HCPCS: 36415; 71045; 71275; 80053; 83880; 84484; 85025; 93005; 93970; 96374; 96375; J2270; J2405

== ENCOUNTER 2023-01-14 15:29 | Inpatient (IN) | payer OTHER ==
[~2023-01-14 15:29] MED LIST changes: -Iopamidol 370 76% 100 ML VIAL ONE; +Iopamidol-370 76% 500 ML MDV (1 ML CHARGE) ONE; +MD-Gastroview 120 ML BOT ONE
[2023-01-14 16:35] LABS: #Basophils 0.1 thou/uL (0.0-0.2); #Eosinphils 0.6 thou/uL (0.0-0.7); #Monocytes 0.6 thou/uL (0.11-0.59); #Neutrophils 6.1 thou/uL (1.40-6.50); %Basophils 0.7 % (0.0-1.0); %Lymphocytes 15.1 % (21.0-51.0); %Monocytes 6.7 % (0.0-10.0); %Neutrophils 69.9 % (42.0-75.0); Hematocrit 35.3 % (36.0-47.0); Hemoglobin 11.5 g/dL (12.0-16.0); Mean Corpuscular HGB CONC 32.6 g/dL (32.0-36.0); Mean Corpuscular Volume 88.9 fl (78.0-98.0); Platelet Count 97 10x3/uL (130-400); Red Blood Cell (RBC) Count 3.97 mill/uL (4.20-5.40); White Blood Cell (WBC) Count 8.7 10x3/uL (4.8-10.8)
[2023-01-14] MEDS ORDERED: Ondansetron PF 4 MG/2 ML Vial ONE (16:39)
[2023-01-14] MEDS ORDERED: Morphine 4 MG/ML VIAL ONE (16:39)
[2023-01-14 16:43] LABS: ALT (SGPT) 8 U/L (8-55); AST (SGOT) 14 U/L (5-34); Albumin 3.4 g/dL (3.5-5.0); Alkaline Phosphatase 73 U/L (40-110); Anion Gap 12 mmol/L (10-20); BUN (Urea Nitrogen) 21 mg/dL (9.8-20.1); Bilirubin, Total 0.7 mg/dL (0.2-1.2); Calc. Creatinine Clearance 0 mL/min (70-130); Calcium 8.5 mg/dL (7.8-10.44); Carbon Dioxide 23 mmol/L (22-29); Chloride 104 mmol/L (98-107); Estimated GFR 19; Globulin 2.8 g/dL (2.4-3.5); Glucose 196 mg/dL (70-105); Potassium 3.7 mmol/L (3.5-5.1); Protein, Total 6.2 g/dL (6.0-8.3); Sodium 135 mmol/L (136-145)
[2023-01-14 16:46] LABS: Troponin I 0.073 ng/mL (< 0.028)
[2023-01-14] MEDS ORDERED: Cefepime 2 GM VIAL ONE (18:04)
[2023-01-14] MEDS ORDERED: Dextrose 50% Abboject 50 ML SYRINGE ONE ×2 (18:28→20:45)
[2023-01-14 19:09] LABS: Troponin I 0.069 ng/mL (< 0.028)
[2023-01-14] MEDS ORDERED: VANCOMYCIN 2 GRAM/500 ML BAG 2 GM in Premix Bag 1 BAG IVPB SCH (21:00)
[2023-01-14] MEDS ORDERED: Dextrose 5% in Water 1,000 ML IV PRN (21:56)
[2023-01-14] MEDS ORDERED: Ondansetron PF 4 MG/2 ML Vial IVP PRN (21:56)
[2023-01-14] MEDS ORDERED: Dextrose 50% Abboject 50 ML SYRINGE SLOW IVP PRN (21:56)
[2023-01-14] MEDS ORDERED: Ondansetron ODT 4 MG TAB PO PRN (21:56)
[2023-01-14] MEDS ORDERED: Acetaminophen 650 MG Suppository PR PRN (21:56)
[2023-01-14] MEDS ORDERED: HumaLOG 300 UNITS/3 ML VIAL SC PRN (21:56)
[2023-01-14] MEDS ORDERED: Glucagon 1 MG/ML KIT IM PRN (21:56)
[2023-01-14] MEDS ORDERED: Piperacillin/Tazobactam 3.375 GM in Sodium Chloride 0.9% 100 ML IVPB SCH (22:15)
[2023-01-14 22:48] VITALS: BMI 43.4
[2023-01-14] MEDS ORDERED: Vancomycin Dose by Levels Sliding Scale (Wt > 99) FS SCH (23:15)
[2023-01-15 04:00] LABS: #Basophils 0.1 thou/uL (0.0-0.2); #Eosinphils 0.6 thou/uL (0.0-0.7); #Monocytes 0.7 thou/uL (0.11-0.59); #Neutrophils 5.2 thou/uL (1.40-6.50); %Basophils 0.7 % (0.0-1.0); %Eosinophils 7.7 % (0.0-10.0); %Lymphocytes 14.9 % (21.0-51.0); %Neutrophils 67.3 % (42.0-75.0); Hematocrit 34.7 % (36.0-47.0); Hemoglobin 11.4 g/dL (12.0-16.0); Mean Corpuscular HGB CONC 32.9 g/dL (32.0-36.0); Mean Corpuscular Hemoglobin 29.3 pg (27.0-31.0); Mean Corpuscular Volume 89.2 fl (78.0-98.0); Mean Platelet Volume 12.1 fL (7.4-10.4); RBC Distribution Width 14.2 % (11.5-14.5); Red Blood Cell (RBC) Count 3.89 mill/uL (4.20-5.40); White Blood Cell (WBC) Count 7.7 10x3/uL (4.8-10.8)
[2023-01-15 04:17] LABS: Platelet Count 97 10x3/uL (130-400)
[2023-01-15 04:19] LABS: Anion Gap 15 mmol/L (10-20); BUN (Urea Nitrogen) 21 mg/dL (9.8-20.1); Calc. Creatinine Clearance 41 mL/min (70-130); Calcium 8.7 mg/dL (7.8-10.44); Carbon Dioxide 23 mmol/L (22-29); Chloride 107 mmol/L (98-107); Estimated GFR 18; Glucose 183 mg/dL (70-105); Potassium 3.8 mmol/L (3.5-5.1); Sodium 141 mmol/L (136-145)
[2023-01-15] MEDS: fentaNYL 50 mcg/mL 1 mL Vial SLOW IVP PRN ×4 (05:22→21:39)
[2023-01-15] MEDS: Piperacillin/Tazobactam 3.375 GM in Sodium Chloride 0.9% 100 ML IVPB SCH ×2 (05:24→15:24)
[2023-01-15] MEDS: Acetaminophen 325 MG TAB PO PRN ×2 (06:05→21:46)
[2023-01-15] MEDS: Famotidine/PF 20 mg/2ml Vial SLOW IVP SCH (08:26)
[2023-01-15] MEDS ORDERED: Heparin 10,000 UNITS/ 10 ML VIAL ONE (08:35)
[2023-01-15] MEDS ORDERED: VANCOMYCIN 1.25 GM/250 ML BAG 1.25 GM in Premix Bag 1 BAG IVPB SCH (09:00)
[2023-01-15 10:33] LABS: HBSAB Concentration Less than 8.00 mIU/mL; HBSAg Index 0.26 S/CO (0-0.99); Hep B Core Total Ab Non-Reactive (NonReactive); Hep B Core Total Index 0.11 S/CO (0-0.79); Hep B Surf AB Non-Reactive (NonReactive); Hep B Surf Ag Non-Reactive S/CO (NonReactive); Hep C IgG Ab Non-Reactive S/CO (NonReactive); Hep C Index 0.07 S/CO (0-0.79)
[2023-01-15 20:35] LABS: Vancomycin, Random 15.4 ug/mL (See Comment)
[2023-01-15] MEDS ORDERED: Vancomycin HCl 750 MG in Sodium Chloride 0.9% 250 ML 250 ML IVPB SCH (21:00)
[2023-01-16] MEDS: fentaNYL 50 mcg/mL 1 mL Vial SLOW IVP PRN ×2 (04:28→22:31)
[2023-01-16] MEDS: Acetaminophen 325 MG TAB PO PRN ×4 (06:41→21:10)
[2023-01-16] MEDS ORDERED: Carvedilol 25 MG TAB PO SCH (06:45)
[2023-01-16] MEDS ORDERED: hydrALAZINE 25 MG TAB PO SCH (06:45)
[2023-01-16] MEDS: Famotidine/PF 20 mg/2ml Vial SLOW IVP SCH (08:26)
[2023-01-16] MEDS: HumaLOG 300 UNITS/3 ML VIAL SC PRN ×2 (10:50→17:17)
[2023-01-16] MEDS: Heparin 25,000 units/D5W 500 ML IV SCH ×2 (11:18→22:50)
[2023-01-16 11:27] LABS: Hematocrit 36.6 % (36.0-47.0); Hemoglobin 11.7 g/dL (12.0-16.0); Platelet Count 119 10x3/uL (130-400)
[2023-01-16 14:35] LABS: Albumin 3.2 g/dL (3.5-5.0); Anion Gap 13 mmol/L (10-20); BUN (Urea Nitrogen) 10 mg/dL (9.8-20.1); BUN/Creatinine Ratio 4.59; Calc. Creatinine Clearance 56 mL/min (70-130); Calcium 9.1 mg/dL (7.8-10.44); Carbon Dioxide 25 mmol/L (22-29); Chloride 103 mmol/L (98-107); Estimated GFR 26; Glucose 165 mg/dL (70-105); Phosphorus 2.9 mg/dL (2.3-4.7); Potassium 3.6 mmol/L (3.5-5.1); Sodium 137 mmol/L (136-145)
[2023-01-16] MEDS: hydrALAZINE 25 MG TAB PO SCH ×2 (15:29→21:11)
[2023-01-16] MEDS: Carvedilol 25 MG TAB PO SCH (21:12)
[2023-01-16] MEDS: Heparin 10,000 UNITS/ 10 ML VIAL SLOW IVP SCH (21:14)
[2023-01-17] MEDS: SUMAtriptan Succinate 25 MG TAB PO PRN ×2 (00:24→03:07)
[2023-01-17 01:05] LABS: PTT 219.9 sec (22.9-36.1)
[2023-01-17 04:29] LABS: #Basophils 0.1 thou/uL (0.0-0.2); #Eosinphils 0.8 thou/uL (0.0-0.7); #Monocytes 0.6 thou/uL (0.11-0.59); #Neutrophils 4.5 thou/uL (1.40-6.50); %Eosinophils 10.5 % (0.0-10.0); %Lymphocytes 17.8 % (21.0-51.0); %Monocytes 7.9 % (0.0-10.0); %Neutrophils 62.2 % (42.0-75.0); Hematocrit 33.7 % (36.0-47.0); Hemoglobin 11.2 g/dL (12.0-16.0); Mean Corpuscular HGB CONC 33.2 g/dL (32.0-36.0); Mean Corpuscular Hemoglobin 28.8 pg (27.0-31.0); Mean Corpuscular Volume 86.6 fl (78.0-98.0); Mean Platelet Volume 12.3 fL (7.4-10.4); Platelet Count 128 10x3/uL (130-400); RBC Distribution Width 13.7 % (11.5-14.5); Red Blood Cell (RBC) Count 3.89 mill/uL (4.20-5.40); White Blood Cell (WBC) Count 7.3 10x3/uL (4.8-10.8)
[2023-01-17 05:00] LABS: PTT 171.5 sec (22.9-36.1)
[2023-01-17 05:14] LABS: Albumin 3.3 g/dL (3.5-5.0); Anion Gap 14 mmol/L (10-20); BUN (Urea Nitrogen) 14 mg/dL (9.8-20.1); BUN/Creatinine Ratio 5.38; Calc. Creatinine Clearance 47 mL/min (70-130); Calcium 8.8 mg/dL (7.8-10.44); Carbon Dioxide 24 mmol/L (22-29); Chloride 100 mmol/L (98-107); Estimated GFR 21; Glucose 185 mg/dL (70-105); Phosphorus 2.5 mg/dL (2.3-4.7); Potassium 3.1 mmol/L (3.5-5.1); Sodium 135 mmol/L (136-145)
[2023-01-17] MEDS: HumaLOG 300 UNITS/3 ML VIAL SC PRN ×2 (06:35→11:30)
[2023-01-17] MEDS ORDERED: Potassium Chloride 20 MEQ TAB PO SCH ×2 (07:15→22:00)
[2023-01-17] MEDS: Carvedilol 25 MG TAB PO SCH ×2 (08:06→20:43)
[2023-01-17] MEDS: hydrALAZINE 25 MG TAB PO SCH ×3 (08:07→20:43)
[2023-01-17] MEDS: Acetaminophen 325 MG TAB PO PRN (08:07)
[2023-01-17] MEDS: Famotidine/PF 20 mg/2ml Vial SLOW IVP SCH (08:08)
[2023-01-17] MEDS ORDERED: hydrALAZINE 20 MG/ML VIAL SLOW IVP PRN (09:48)
[2023-01-17] MEDS ORDERED: Labetalol HCl 100 MG/20 ML VIAL SLOW IVP PRN (09:49)
[2023-01-17] MEDS: HYDROcodone/Acetaminophen 5/325 mg Tablet PO PRN ×2 (10:25→23:30)
[2023-01-17] MEDS: Heparin 25,000 units/D5W 500 ML IV SCH ×2 (14:14→23:32)
[2023-01-17] MEDS: Heparin 10,000 UNITS/ 10 ML VIAL SLOW IVP SCH (14:15)
[2023-01-18 01:34] LABS: PTT 172.5 sec (22.9-36.1)
[2023-01-18 03:53] LABS: Hematocrit 32.6 % (36.0-47.0); Hemoglobin 10.7 g/dL (12.0-16.0); Platelet Count 123 10x3/uL (130-400)
[2023-01-18 04:17] LABS: Magnesium 1.9 mg/dL (1.6-2.6)
[2023-01-18 07:53] LABS: Albumin 3.2 g/dL (3.5-5.0); Anion Gap 12 mmol/L (10-20); BUN (Urea Nitrogen) 15 mg/dL (9.8-20.1); BUN/Creatinine Ratio 5.66; Calc. Creatinine Clearance 47 mL/min (70-130); Calcium 9.2 mg/dL (7.8-10.44); Carbon Dioxide 23 mmol/L (22-29); Chloride 102 mmol/L (98-107); Estimated GFR 21; Glucose 150 mg/dL (70-105); Phosphorus 2.9 mg/dL (2.3-4.7); Potassium 3.7 mmol/L (3.5-5.1); Sodium 133 mmol/L (136-145)
[2023-01-18] MEDS: hydrALAZINE 25 MG TAB PO SCH ×3 (08:28→20:31)
[2023-01-18] MEDS: Sertraline 25 MG TAB PO SCH (08:28)
[2023-01-18] MEDS: Famotidine/PF 20 mg/2ml Vial SLOW IVP SCH (08:28)
[2023-01-18] MEDS: Carvedilol 25 MG TAB PO SCH ×2 (08:31→20:32)
[2023-01-18] MEDS ORDERED: Sertraline 100 MG TAB PO SCH (09:00)
[2023-01-18] MEDS: HYDROcodone/Acetaminophen 5/325 mg Tablet PO PRN (11:18)
[2023-01-18] MEDS: Rivaroxaban 15 MG TAB PO SCH (11:19)
[2023-01-19 03:50] LABS: #Basophils 0.1 thou/uL (0.0-0.2); #Eosinphils 0.8 thou/uL (0.0-0.7); #Monocytes 0.5 thou/uL (0.11-0.59); #Neutrophils 4.9 thou/uL (1.40-6.50); %Basophils 0.8 % (0.0-1.0); %Eosinophils 10.2 % (0.0-10.0); %Lymphocytes 14.2 % (21.0-51.0); %Monocytes 7.1 % (0.0-10.0); %Neutrophils 66.9 % (42.0-75.0); Hematocrit 34.3 % (36.0-47.0); Hemoglobin 11.3 g/dL (12.0-16.0); Mean Corpuscular HGB CONC 32.9 g/dL (32.0-36.0); Mean Corpuscular Hemoglobin 28.4 pg (27.0-31.0); Mean Corpuscular Volume 86.2 fl (78.0-98.0); Mean Platelet Volume 11.3 fL (7.4-10.4); Platelet Count 140 10x3/uL (130-400); RBC Distribution Width 13.8 % (11.5-14.5); Red Blood Cell (RBC) Count 3.98 mill/uL (4.20-5.40); White Blood Cell (WBC) Count 7.3 10x3/uL (4.8-10.8)
[2023-01-19 04:13] LABS: Albumin 3.2 g/dL (3.5-5.0); Anion Gap 12 mmol/L (10-20); BUN (Urea Nitrogen) 20 mg/dL (9.8-20.1); BUN/Creatinine Ratio 7.33; Calc. Creatinine Clearance 45 mL/min (70-130); Calcium 8.8 mg/dL (7.8-10.44); Carbon Dioxide 23 mmol/L (22-29); Chloride 103 mmol/L (98-107); Estimated GFR 20; Glucose 210 mg/dL (70-105); Phosphorus 3.2 mg/dL (2.3-4.7); Sodium 134 mmol/L (136-145)
[2023-01-19] MEDS: hydrALAZINE 25 MG TAB PO SCH (08:56)
[2023-01-19] MEDS: Rivaroxaban 15 MG TAB PO SCH (08:57)
[2023-01-19] MEDS: Sertraline 25 MG TAB PO SCH (08:57)
[2023-01-19] MEDS: Carvedilol 25 MG TAB PO SCH (08:57)
[2023-01-19] MEDS: Famotidine/PF 20 mg/2ml Vial SLOW IVP SCH (08:57)
[2023-01-19 08:59] VITALS: BP 165/87
[2023-01-19 11:53] VITALS: TEMP 98.2
== END 2023-01-19 13:32 | disposition home or self-care (01) | DRG 178 ==
LOC: ERS 15:29 → IMCU/EMU 21:33
PROVIDERS: ADMIT Student in an Organized Health Care Education/Training Program; ATTEND Family Medicine
DX: J98.51 Mediastinitis (principal); E87.1 Hypo-osmolality and hyponatremia; I82.C11 Acute embolism and thrombosis of right internal jugular vein; T82.868A Thrombosis due to vascular prosthetic devices, implants and grafts, initial encounter; N17.9 Acute kidney failure, unspecified; I50.42 Chronic combined systolic (congestive) and diastolic (congestive) heart failure; I42.8 Other cardiomyopathies; E87.20 Acidosis, unspecified; I13.0 Hypertensive heart and chronic kidney disease with heart failure and stage 1 through stage 4 chronic kidney disease, or unspecified chronic kidney disease; N18.4 Chronic kidney disease, stage 4 (severe); N20.0 Calculus of kidney; E11.22 Type 2 diabetes mellitus with diabetic chronic kidney disease; G47.30 Sleep apnea, unspecified; K21.9 Gastro-esophageal reflux disease without esophagitis; E11.649 Type 2 diabetes mellitus with hypoglycemia without coma; F41.9 Anxiety disorder, unspecified; F32.A Depression, unspecified; I44.0 Atrioventricular block, first degree; R77.8 Other specified abnormalities of plasma proteins; R59.0 Localized enlarged lymph nodes; E11.21 Type 2 diabetes mellitus with diabetic nephropathy; D63.1 Anemia in chronic kidney disease; Z88.8 Allergy status to other drugs, medicaments and biological substances; Z79.82 Long term (current) use of aspirin; Z79.4 Long term (current) use of insulin; Z79.899 Other long term (current) drug therapy; Z95.810 Presence of automatic (implantable) cardiac defibrillator
CPT/HCPCS: 36415; 36416; 71045; 71275; 74220; 76536; 80048; 80053; 80069; 80202; 83605; 83735; 84145; 84244; 84484; 85014; 85018; 85025; 85049; 85730; 86704; 87040; 90935; 93005; 96361; 96365; 96367; 96375; 96376; G0257; J0360; J0692; J1644; J1815; J2270; J2405; J2543; J3010; J3370; J3490; J7050; J7999; Q9963; Q9967; S0028